=== PATIENT | female | born 1935 | race Caucasian/White ===

== ENCOUNTER 2016-10-11 09:35 | Inpatient (IN) | payer BC ==
[2016-10-11 09:41] VITALS: BMI 24.9
[2016-10-11 10:22] LABS: BASOPHIL 0.8 % (0-2.0); EOSINOPHIL 4.7 % (0-4.5); MCH 30.5 pg (25.7-33.7); MCHC 32.9 g/dl (32.0-36.0); MEAN CELL VOLUME 92.9 fl (80-96); MEAN PLT VOLUME 8.5 fl (7.5-11.1); NEUTROPHILS 71.2 % (42.8-82.8); PLATELET COUNT 151 K/MM3 (134-434); RDW 14.3 % (11.6-15.6); WHITE BLOOD COUNT 5.5 K/mm3 (4.0-10.8)
[2016-10-11 10:43] LABS: CPK(DFH) 88 IU/L (26-140)
[2016-10-11 10:45] LABS: INR 1.6 (0.82-1.09); PROTHROMBIN TIME (PATIENT) 17.7 SEC (10.2-13.0)
[2016-10-11 10:45] LABS: ALBUMIN 3.9 g/dl (3.5-5.0); ALK PHOS 60 U/L (32-92); ANION GAP 6 (8-16); BILIRUBIN,TOTAL 0.9 mg/dl (0.2-1.0); CALCIUM 9.1 mg/dl (8.4-10.2); CO2 23 mmol/L (22-28); CREATININE 0.9 mg/dl (0.6-1.3); GLUCOSE,RANDOM 119 mg/dl (74-106); SGOT/AST 24 U/L (10-42); SGPT/ALT 20 U/L (10-40); TOT PROT 6.4 g/dl (6.4-8.3)
--- NOTE | 2016-10-11 11:00 | PDOC ---
History of Present Illness - General Chief Complaint: Palpitations Stated Complaint: PALPITATIONS,SOB Time Seen by Provider: 10/11/16 09:45 History Source: Patient Exam Limitations: No Limitations - History of Present Illness Initial Comments: 81 yo F history afib, HTN presents with recent SOB, weight gain. She states that she has gained a few pounds over the past month (she keeps a detailed record), but today she also noted that she was having palpitations and racing heartbeat. She called Dr. Jiménez's office, who recommended she go to ED. She denies chest pain, N/V, diaphoresis. She has palpitations and SOB at rest. Of note, she was taken off lasix a few months ago, only uses it prn. Past History - Past Medical History Allergies/Adverse Reactions: Allergies Allergy/AdvReac Type Severity Reaction Status Date / Time cephalexin [Cephalexin] Allergy Intermediate Rash Verified 10/11/16 09:37 clindamycin Allergy Intermediate Rash Verified 10/11/16 09:37 naproxen [From Naprosyn] Allergy Intermediate ANKLES Verified 10/11/16 09:37 SWELLED UP Penicillins Allergy Intermediate Rash Verified 10/11/16 09:37 diphenhydramine HCl AdvReac CAN'T Verified 10/11/16 09:37 [From Benadryl] HAVE,HAS GLAUCOMA Home Medications: Ambulatory Orders Travoprost (Benzalkonium) [Travatan 0.004% Eye Drop] 1 gtt OD HS 05/29/11 Levothyroxine [Synthroid -] 100 mcg PO DAILY 03/19/15 Potassium Chloride [Klor-Con M20] 20 meq PO ASDIR 03/19/15 Dorzolamide HCl [Trusopt] 10 ml OD BID 10/15/15 Apixaban [Eliquis] 2.5 mg PO BID 10/11/16 Aspirin [ASA -] 81 mg PO DAILY 10/11/16 Atorvastatin Ca [Lipitor] 40 mg PO HS 10/11/16 Carvedilol [Coreg -] 2 tab PO ASDIR 10/11/16 Carvedilol [Coreg -] 4 tab PO AM 10/11/16 Clopidogrel Bisulfate [Plavix -] 75 mg PO DAILY 10/11/16 Lisinopril 5 mg PO DAILY 10/11/16 Anemia: No Asthma: No Cancer: No Cardiac Disorders: Yes CVA: No COPD: No CHF: No Dementia: No Diabetes: No GI Disorders: Yes (GERD) Disorders: No HTN: Yes () Hypercholesterolemia: Yes Liver Disease: No Seizures: No Thyroid Disease: Yes () Other medical history: CATARACTS,GLAUCOMA - Surgical History Abdominal Surgery: No Appendectomy: No Cardiac Surgery: Yes (STENT 10/27/15) Cholecystectomy: No Lung Surgery: No Neurologic Surgery: No Orthopedic Surgery: No - Psycho/Social/Smoking Cessation Hx Anxiety: No Suicidal Ideation: No Smoking History: Former smoker Have you smoked in the past 12 months: No Number of Cigarettes Smoked Daily: 40 If you are a former smoker, when did you quit?: 23 YEARS AGO Information on smoking cessation initiated: No Hx Alcohol Use: No Drug/Substance Use Hx: No Substance Use Type: None Hx Substance Use Treatment: No Review of Systems - Review of Systems Able to Perform ROS?: Yes Comments:: GENERAL/CONSTITUTIONAL: No fever or chills. No weakness. +Weight gain. HEAD, EYES, EARS, NOSE AND THROAT: No change in vision. No ear pain or discharge. No sore throat. CARDIOVASCULAR: No chest pain. +Shortness of breath. RESPIRATORY: No cough, wheezing, or hemoptysis. GASTROINTESTINAL: No nausea, vomiting, diarrhea or constipation. GENITOURINARY: No dysuria, frequency, or change in urination. MUSCULOSKELETAL: +BLE swelling. No neck or back pain. SKIN: No rash NEUROLOGIC: No headache, vertigo, loss of consciousness, or change in strength/ sensation. ENDOCRINE: No increased thirst. No abnormal weight change. HEMATOLOGIC/LYMPHATIC: No anemia, easy bleeding, or history of blood clots. ALLERGIC/IMMUNOLOGIC: No hives or skin allergy. *Physical Exam - Vital Signs Last Vital Signs Temp Pulse Resp BP Pulse Ox 98.4 F 114 H 20 130/90 97 10/11/16 09:38 10/11/16 09:38 10/11/16 09:38 10/11/16 09:38 10/11/16 09:38 - Physical Exam Comments: GENERAL: Awake, alert, and fully oriented, in no acute distress HEAD: No signs of trauma EYES: PERRLA, EOMI, sclera anicteric, conjunctiva clear ENT: Auricles normal inspection, hearing grossly normal, nares patent, oropharynx clear without exudates. Moist mucosa NECK: Normal ROM, supple, no lymphadenopathy, JVD, or masses LUNGS: Breath sounds equal, clear to auscultation bilaterally. No wheezes, and no crackles. Mild tachypnea. HEART: Regular rate and rhythm, normal S1 and S2, no murmurs, rubs or gallops ABDOMEN: Soft, nontender, normoactive bowel sounds. No guarding, no rebound. No masses EXTREMITIES: Normal range of motion, +trace edema to B/L ankles. No clubbing or cyanosis. No cords, erythema, or tenderness NEUROLOGICAL: Cranial nerves II through XII grossly intact. Normal speech, normal gait SKIN: Warm, Dry, normal turgor, no rashes or lesions noted. ED Treatment Course - LABORATORY CBC & Chemistry Diagram: 10/11/16 10:08 10/11/16 10:08 - ADDITIONAL ORDERS Additional order review: Laboratory Results 10/11/16 10/11/16 10/11/16 10:10 10:08 10:08 INR 1.60 H Sodium 133 L Potassium 4.6 Chloride 104 Carbon Dioxide 23 D Anion Gap 6 L BUN 22 H D Creatinine 0.9 D Creat Clearance w eGFR Y Random Glucose 119 H Calcium 9.1 Total Bilirubin 0.9 D AST 24 ALT 20 Alkaline Phosphatase 60 D Creatine Kinase 88 Total Protein 6.4 Albumin 3.9 10/11/16 10:08 RBC 3.57 L D MCV 92.9 MCHC 32.9 RDW 14.3 MPV 8.5 Neutrophils % 71.2 Lymphocytes % 12.6 Monocytes % 10.7 H Eosinophils % 4.7 H D Basophils % 0.8 - RADIOLOGY Radiology Studies Ordered: Category Date Time Status CHEST X-RAY PORTABLE* [RAD] Stat Radiology 10/11/16 09:45 Taken Medical Decision Making - Medical Decision Making Pt was given cardizem for the afib with RVR (she is on coreg already, but her BP would not tolerate additional B-gregorio at that time). Her HR improved, but she had brief, self-limited erythema at the injection site. As it was self- limited, the benadryl was cancelled before it was given. No airway symptoms. I will admit her to hospitalist for further treatment and workup. I paged Dr. Jiménez to discuss case at 11:04. Awaiting callback. *DC/Admit/Observation/Transfer Diagnosis at time of Disposition: Acute on chronic systolic (congestive) heart failure Atrial fibrillation Qualifiers: Atrial fibrillation type: unspecified Qualified Code(s): I48.91 - Unspecified atrial fibrillation - Discharge Dispostion Condition at time of disposition: Stable Admit: Yes
[2016-10-11] MEDS ORDERED: FUROSEMIDE 40 MG/4 ML INJECTABLE VIAL IVPUSH ONE (11:03)
[2016-10-11] MEDS ORDERED: dilTIAZem HCL 50 MG/10 ML - 10 ML VIAL IVPUSH ONE (11:03)
[2016-10-11 11:36] LABS: TROPONIN I (DFP) < 0.03 ng/ml (0.03-0.50)
[2016-10-11] MEDS ORDERED: dilTIAZem HCL 50 MG/10 ML - 10 ML VIAL ONE (11:50)
[2016-10-11] MEDS ORDERED: FUROSEMIDE 40 MG/4 ML INJECTABLE VIAL ONE (11:50)
--- NOTE | 2016-10-11 13:06 | HP ---
CHIEF COMPLAINT: shortness of breath, billateral leg swelling PCP: Dr Montes (retired-->Gretel) Tie Sawyer: Dr Mullins HISTORY OF PRESENT ILLNESS: patient is a 81 year old female, with a past medical history of hypertension, afib (eliquis), [place] (stent x , 2015), glaucoma , hypothyroidism, and COPD. Patient reports one week of shortness of breath and billateral leg swelling. She reports taking lasix on Friday, 10/07 and Sunday 10/08 with relief. However, the shortness and breath and fatigue worsened today. As a result, she contacted her equal employment opportunity officer office, Dr Mejia and was referred to the [facility] by the office staff. ER course was notable for: (1) troponin x 1 wnl (2) ekg afib with ventricular rate of 109 (3) chest xray notable for pulmonary vascular congestion and mild intersitial lung disease Recent Travel: none PAST MEDICAL HISTORY: see hpi PAST SURGICAL HISTORY: see hpi Social History: retired resides at home Smoking: quit 20 years ago Alcohol:none Drugs: none Family History: non contributory to this admission. Allergies cephalexin [Cephalexin] Allergy (Intermediate, Verified 10/11/16 09:37) Rash clindamycin Allergy (Intermediate, Verified 10/11/16 09:37) Rash naproxen [From Naprosyn] Allergy (Intermediate, Verified 10/11/16 09:37) ANKLES SWELLED UP Penicillins Allergy (Intermediate, Verified 10/11/16 09:37) Rash diphenhydramine HCl [From Benadryl] Adverse Reaction (Verified 10/11/16 09:37) CAN'T HAVE,HAS GLAUCOMA HOME MEDICATIONS: Home Medications Medication Instructions Recorded Travoprost (Benzalkonium) 1 gtt OD HS 05/29/11 [Travatan 0.004% Eye Drop] Levothyroxine [Synthroid -] 100 mcg PO DAILY 03/19/15 Potassium Chloride [Klor-Con M20] 20 meq PO ASDIR 03/19/15 Dorzolamide HCl [Trusopt] 10 ml OD BID 10/15/15 Apixaban [Eliquis] 2.5 mg PO BID 10/11/16 Aspirin [ASA -] 81 mg PO DAILY 10/11/16 Atorvastatin Ca [Lipitor] 40 mg PO HS 10/11/16 Carvedilol [Coreg -] 2 tab PO ASDIR 10/11/16 Carvedilol [Coreg -] 4 tab PO AM 10/11/16 Clopidogrel Bisulfate [Plavix -] 75 mg PO DAILY 10/11/16 Lisinopril 5 mg PO DAILY 10/11/16 REVIEW OF SYSTEMS CONSTITUTIONAL: Absent: fever, chills, diaphoresis, generalized weakness, malaise, loss of appetite, weight change HEENT: Absent: rhinorrhea, nasal congestion, throat pain, throat swelling, difficulty swallowing, mouth swelling, ear pain, eye pain, visual changes CARDIOVASCULAR: Absent: chest pain, syncope, palpitations, irregular heart rate, lightheadedness , peripheral edema RESPIRATORY: Present: shortness of breath, dyspnea upon exertion Absent: cough, orthopnea, wheezing, stridor, hemoptysis GASTROINTESTINAL: Absent: abdominal pain, abdominal distension, nausea, vomiting, diarrhea, constipation, melena, hematochezia GENITOURINARY: Absent: dysuria, frequency, urgency, hesitancy, hematuria, flank pain, genital pain MUSCULOSKELETAL: Absent: myalgia, arthralgia, joint swelling, back pain, neck pain SKIN: Absent: rash, itching, pallor HEMATOLOGIC/IMMUNOLOGIC: Absent: easy bleeding, easy bruising, lymphadenopathy, frequent infections ENDOCRINE: Absent: unexplained weight gain, unexplained weight loss, heat intolerance, cold intolerance NEUROLOGIC: Absent: headache, focal weakness or paresthesias, dizziness, unsteady gait, seizure, mental status changes, bladder or bowel incontinence PSYCHIATRIC: Absent: anxiety, depression, suicidal or homicidal ideation, hallucinations. PHYSICAL EXAMINATION Vital Signs - 24 hr 10/11/16 10/11/16 10/11/16 09:38 11:55 12:07 Temperature 98.4 F Pulse Rate 114 H Pulse Rate [ 117 H 80 Apical] Respiratory 20 18 20 Rate Blood Pressure 130/90 Blood Pressure 151/105 123/84 [Arm] O2 Sat by Pulse 97 98 97 Oximetry (%) GENERAL: Awake, alert, and fully oriented, in no acute distress. HEAD: Normal with no signs of trauma. EYES: Pupils equal, round and reactive to light, extraocular movements intact, sclera anicteric, conjunctiva clear. No lid lag. EARS, NOSE, THROAT: Ears normal, nares patent, oropharynx clear without exudates. Moist mucous membranes. NECK: Normal range of motion, supple without lymphadenopathy, JVD, or masses. LUNGS: Breath sounds equal, clear to auscultation bilaterally. left upper lobe inspiratory wheeze, rales to billateral bases No accessory muscle use. HEART: Regular rate and rhythm, normal S1 and S2 without murmur, rub or gallop. ABDOMEN: Soft, nontender, not distended, normoactive bowel sounds, no guarding, no rebound, no masses. No hepatomegaly or splenomegaly. MUSCULOSKELETAL: Normal range of motion at all joints. No bony deformities or tenderness. No CVA tenderness. UPPER EXTREMITIES: 2+ pulses, warm, well-perfused. No cyanosis. No clubbing. No peripheral edema. LOWER EXTREMITIES: 2+ pulses, warm, well-perfused. No calf tenderness. No peripheral edema. NEUROLOGICAL: Cranial nerves II-XII intact. Normal speech. Normal gait. PSYCHIATRIC: Cooperative. Good eye contact. Appropriate mood and affect. SKIN: Warm, dry, normal turgor, no rashes or lesions noted, normal capillary refill. Laboratory Results - last 24 hr 10/11/16 10/11/16 10/11/16 10:08 10:08 10:08 WBC 5.5 RBC 3.57 L D Hgb 10.9 D Hct 33.1 D MCV 92.9 MCHC 32.9 RDW 14.3 Plt Count 151 MPV 8.5 Neutrophils % 71.2 Lymphocytes % 12.6 Monocytes % 10.7 H Eosinophils % 4.7 H D Basophils % 0.8 INR Sodium 133 L Potassium 4.6 Chloride 104 Carbon Dioxide 23 D Anion Gap 6 L BUN 22 H D Creatinine 0.9 D Creat Clearance w eGFR Y Random Glucose 119 H Calcium 9.1 Total Bilirubin 0.9 D AST 24 ALT 20 Alkaline Phosphatase 60 D Creatine Kinase 88 Troponin I < 0.03 L Total Protein 6.4 Albumin 3.9 10/11/16 10:10 WBC RBC Hgb Hct MCV MCHC RDW Plt Count MPV Neutrophils % Lymphocytes % Monocytes % Eosinophils % Basophils % INR 1.60 H Sodium Potassium Chloride Carbon Dioxide Anion Gap BUN Creatinine Creat Clearance w eGFR Random Glucose Calcium Total Bilirubin AST ALT Alkaline Phosphatase Creatine Kinase Troponin I Total Protein Albumin ASSESSMENT/PLAN: 1) card acute on chronic systolic congestive heart failure - chest xray reviewed pulmonary vascular congestion noted, lasix 40mg IV x 1 given in ED, continue lasix 40mg IV daily - daily weight and strict I/O - echo reviewed 2015 LV mild reduced, moderate pulmonary hypertension, moderate global hypokinesis of LV, pending ECHO, cardiology contacted and will complete echo by the end of office hours - pending bnp afib w/rvr - continous cardiac monitoring, cardizem 10mg given in ED, ventricular rate better controlled, continue coreg (home dose) - continue eliquis CAD S/p stent - continue plavix, lipitor and asa - pending lipid profile - appreciate the input of cardiology Dr Mullins, 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's private equal employment opportunity officer hypertension - continue lisinopril b/p well controlled 2) pulm acute copd exacerbation - interistial lung disease noted on cxr, wheezing noted on exam, pt is a former smoker and chest ct (2015) reviewed moderate copd, start duonebs prn - keep spo2 above 92% with supplemental o2 - appreciate pulmonary input 3) endo hypothyroidism - TSH pending, continue synthroid f/e/n - low sodium diet - replete electrolytes prn ppx - eliquis - pt - oob - scd - zantac dispo: requires inpatient telemetry admission Visit type - Emergency Visit Emergency Visit: Yes ED Registration Date: 10/11/16 Care time: The patient presented to the Emergency Department on the above date and was hospitalized for further evaluation of their emergent condition. - New Patient This patient is new to me today: Yes Date on this admission: 10/11/16 - Critical Care Critical Care patient: Yes Total Critical Care Time (in minutes): 45 Critical Care Statement: The care of this patient involved high complexity decision making to prevent further life threatening deterioration of the patient 's condition and/or to evalute & treat vital organ system(s) failure or risk of failure.
[2016-10-11] MEDS ORDERED: ALBUTEROL SO4 0.083% IH SOL 2.5 MG/3 ML VIAL.NEB. NEB PRN (13:44)
[2016-10-11] MEDS ORDERED: ALBUTEROL SO4 0.083% IH SOL 2.5 MG/3 ML VIAL.NEB. NEB ONE (14:15)
[2016-10-11] MEDS ORDERED: POTASSIUM CHLORIDE TABS 20 MEQ TABLET.ER (FP) PO SCH (14:15)
[2016-10-11 16:35] LABS: URINE APPEARANCE Clear; URINE BILIRUBIN Negative (NEGATIVE); URINE BLOOD Negative (NEGATIVE); URINE COLOR YELLOW; URINE GLUCOSE (UA) Negative (NEGATIVE); URINE KETONE Negative (NEGATIVE); URINE LEUK ESTERASE Negative (NEGATIVE); URINE NITRITE Negative (NEGATIVE); URINE PROTEIN Negative (NEGATIVE); URINE UROBILINOGEN 0.2 E.U/dl (0.2-1.0)
--- NOTE | 2016-10-11 16:55 | PN ---
Progress Note (short form) - Note Progress Note: PULMONARY CONSULTATION DICTATED 10/11/16 IMP DYSPNEA ACUTE ON CHRONIC CHF ASHD S/P NM ,S/P STENT LIKELY COPD AFIB HTN HYPONATREMIA PLAN IV LASIX INHALED BRONCHODILATORS PRN O2 PRN DAILY WTS ECHO MONITOR LYTES,NA PFTS OUTPATIENT F/U CHEST C-RAY Problem List - Problems (1) Acute on chronic systolic (congestive) heart failure Code(s): I50.23 - ACUTE ON CHRONIC SYSTOLIC (CONGESTIVE) HEART FAILURE (2) Atrial fibrillation Code(s): I48.91 - UNSPECIFIED ATRIAL FIBRILLATION Qualifiers: Atrial fibrillation type: unspecified Qualified Code(s): I48.91 - Unspecified atrial fibrillation (3) COPD (chronic obstructive pulmonary disease) Code(s): J44.9 - CHRONIC OBSTRUCTIVE PULMONARY DISEASE, UNSPECIFIED (4) Hypertension Code(s): I10 - ESSENTIAL (PRIMARY) HYPERTENSION (5) ASHD (arteriosclerotic heart disease) Code(s): I25.10 - ATHSCL HEART DISEASE OF [place] CORONARY ARTERY W/O ANG PCTRS
[2016-10-11 17:07] LABS: CPK(DFH) 77 IU/L (26-140)
[2016-10-11 17:26] LABS: TROPONIN I (DFP) < 0.03 ng/ml (0.03-0.50)
[2016-10-11 19:48] LABS: THYROID STIMULATING HORMONE 0.52 uIU/ml (0.358-3.74)
[2016-10-11] MEDS ORDERED: PT OWN MED DRAWER 7, Y5N ONE (21:30)
[2016-10-11] MEDS: APIXABAN 2.5 MG TABLET PO SCH (21:31)
[2016-10-11] MEDS: DORZOLAMIDE 2% HCL OPHTHALMIC SOLUTION 10 ML BOTTLE OD SCH (21:31)
[2016-10-11] MEDS ORDERED: CARVEDILOL 3.125 MG TABLET (FP) PO SCH ×2 (22:00)
[2016-10-11] MEDS ORDERED: LATANOPROST 0.005% OPHTH SOLN 2.5ML BOTTLE OD SCH (22:00)
[2016-10-11] MEDS ORDERED: ATORVASTATIN CA 40 MG TABLET (FP) PO SCH (22:00)
[2016-10-11] MEDS ORDERED: TRAVOPROST OD SCH (22:00)
[2016-10-12 06:21] VITALS: BP 133/74; PULSE 82; TEMP 97.9
[2016-10-12] MEDS ORDERED: LEVOTHYROXINE NA 100 MCG TABLET (FP) PO SCH (07:00)
[2016-10-12] MEDS ORDERED: CARVEDILOL 3.125 MG TABLET (FP) PO SCH (07:00)
--- NOTE | 2016-10-12 07:46 | CONS ---
DATE OF CONSULTATION: 10/11/2016 REFERRING PHYSICIAN: Ginny Flower MD HISTORY: The patient is an 81-year-old white female with past medical history of atrial fibrillation on Eliquis with hypertension, ASHD status post VT in 2016, status post stent x1, COPD, CHF, glaucoma, hypothyroidism admitted to [facility] with the complaint of a [id number] of increasing shortness of breath, dyspnea on exertion, and lower extremity edema. The patient denies any complaints of chest pain, nausea, vomiting, or diaphoresis. Denies any fevers or chills. Had a cough, which was nonproductive. Denies any recent URI symptoms. She states that she had taken Lasix on Friday, October 07, Friday, October 08 with some improvement. The shortness of breath then started increasing today. The past couple of days had increasing shortness of breath and generalized weakness. She called Dr. Jiméenz, her croze cutter, at which time she was referred to the emergency room. In the ER, she was felt to be in CHF. She underwent a CT scan of the chest, which revealed evidence of COPD changes, small, bilateral pleural effusions, which are actually improved from 2016. She has a history of tobacco use approximately 2 packs per day since age 11. Quit greater than 20 years ago. There is no history of occupational exposure to chemicals or fumes. She denies any history of COPD in the past, asthma, or bronchitis. She denies any history of use of inhaled bronchodilators. PAST MEDICAL HISTORY: Again includes hypertension, atrial fibrillation on Eliquis, [place] status post stent, glaucoma, hypothyroidism. REVIEW OF SYSTEMS: Positive orthopnea. Positive dyspnea on exertion. No chest pain, no palpitations. Positive mild cough. No fevers, no chills. Positive lower extremity edema. CURRENT MEDICATIONS: Include Eliquis, Prinivil, albuterol, Coreg, Trusopt, Lipitor, Lasix, aspirin, Plavix, eye drops, Synthroid, and K-Dur. PHYSICAL EXAMINATION: General: An elderly white female awake and alert in no acute distress. Vital Signs: She is currently afebrile. Blood pressure 133/84, respiratory rate 18, O2 saturation 98% on room air. HEENT: Normocephalic and atraumatic. Neck: Supple. Heart: Irregularly irregular with normal S1, S2. Chest: A few bilateral crackles. Abdomen: Soft. Bowel sounds positive. Extremities: Bilateral lower extremity edema. LABORATORIES: Sodium 133, BUN 22, creatinine 0.9. BNP is pending. INR 1.6, WBC 5.5, hemoglobin 10.9, hematocrit 33.1 with a platelet count of 151,000. Chest x-ray reveals mild pulmonary venous congestion. IMPRESSION: 1. Dyspnea secondary to decompensated congestive heart failure. 2. Likely underlying chronic obstructive pulmonary disease. 3. Atrial fibrillation. 4. Arteriosclerotic heart disease status post myocardial infarction status post stent. 5. Hypertension. PLAN: Continue IV Lasix, inhaled bronchodilators, supplemental O2. Obtain follow up chest x-ray, echocardiogram, and also PFTs as an outpatient. SARAH JEFFERS M.D. [id number]
[2016-10-12 08:19] LABS: ANION GAP 7 (8-16); CALCIUM 8.8 mg/dl (8.4-10.2); CHOLESTEROL 125 mg/dl; CO2 26 mmol/L (22-28); CREATININE 0.8 mg/dl (0.6-1.3); GLUCOSE,RANDOM 101 mg/dl (74-106); MAGNESIUM 1.8 mg/dL (1.8-2.4)
[2016-10-12] MEDS ORDERED: PT OWN MED DRAWER 7, Y5N ONE (09:07)
[2016-10-12] MEDS: APIXABAN 2.5 MG TABLET PO SCH (09:08)
[2016-10-12] MEDS: DORZOLAMIDE 2% HCL OPHTHALMIC SOLUTION 10 ML BOTTLE OD SCH (09:09)
--- NOTE | 2016-10-12 09:40 | CON.CARD ---
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 She states that she has gained a few pounds over the past month (she keeps a detailed record), but today she also noted that she was having palpitations and racing heartbeat. She called Dr. Jiménez's office, who recommended she go to ED. She denies chest pain, N/V, diaphoresis. She has palpitations and SOB at rest. Of note, she was taken off lasix a few months ago , only uses it prn. Pt has completed 10 of 36 sessions of cardiac rehabilitation at [facility] (last attended 09/18/16). She walks "a little" at home. 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 Cardio/Vascular: Yes: HTN, Hyperlipdemia ...: No Psych: Yes: Anxiety - Past Surgical History Past Surgical History: Yes: Stent (coronary) - Alcohol/Substance Use Hx Alcohol Use: No - Smoking History Smoking history: Former smoker Have you smoked in the past 12 months: No Aproximately how many cigarettes per day: 40 If you are a former smoker, when did you quit?: 23 YEARS AGO Home Medications - Allergies Allergies/Adverse Reactions: Allergies Allergy/AdvReac Type Severity Reaction Status Date / Time cephalexin [Cephalexin] Allergy Intermediate Rash Verified 10/11/16 09:37 clindamycin Allergy Intermediate Rash Verified 10/11/16 09:37 naproxen [From Naprosyn] Allergy Intermediate ANKLES Verified 10/11/16 09:37 SWELLED UP Penicillins Allergy Intermediate Rash Verified 10/11/16 09:37 diphenhydramine HCl AdvReac CAN'T Verified 10/11/16 09:37 [From Benadryl] HAVE,HAS GLAUCOMA - Home Medications Home Medications: Ambulatory Orders Travoprost (Benzalkonium) [Travatan 0.004% Eye Drop] 1 gtt OD HS 05/29/11 Levothyroxine [Synthroid -] 100 mcg PO DAILY 03/19/15 Potassium Chloride [Klor-Con M20] 20 meq PO ASDIR 03/19/15 Dorzolamide HCl [Trusopt] 10 ml OD BID 10/15/15 Apixaban [Eliquis] 2.5 mg PO BID 10/11/16 Aspirin [ASA -] 81 mg PO DAILY 10/11/16 Atorvastatin Ca [Lipitor] 40 mg PO HS 10/11/16 Carvedilol [Coreg -] 2 tab PO ASDIR 10/11/16 Carvedilol [Coreg -] 4 tab PO AM 10/11/16 Clopidogrel Bisulfate [Plavix -] 75 mg PO DAILY 10/11/16 Lisinopril 5 mg PO DAILY 10/11/16 Family Disease History - Family Disease History Family History: Denies Review of Systems - Review of Systems Constitutional: reports: Weakness Eyes: reports: No Symptoms HENT: reports: No Symptoms Neck: reports: No Symptoms Cardiovascular: reports: Palpitations, Shortness of Breath Respiratory: reports: SOB on Exertion Genitourinary: reports: No Symptoms Breasts: reports: No Symptoms Reported Musculoskeletal: reports: Muscle Weakness Neurological: reports: No Symptoms Endocrine: reports: No Symptoms Hematology/Lymphatic: reports: No Symptoms Psychiatric: reports: Anxiety - Risk Factors Known Risk Factors: Yes: Age, Hypercholesterolemia, Hypertension, Physical Inactivity, Other (CAD-->coronary stent; systolic CHF) Vital Signs: Vital Signs Temperature 97.9 F 10/12/16 06:00 Pulse Rate 82 10/12/16 06:00 Respiratory Rate 18 10/12/16 06:00 Blood Pressure 133/74 10/12/16 06:00 O2 Sat by Pulse Oximetry (%) 100 10/12/16 06:17 Constitutional: Yes: Calm Eyes: Yes: WNL HENT: Yes: WNL Neck: Yes: WNL Respiratory: Yes: Regular, Diminished Gastrointestinal: Yes: Soft Renal/: No: Anuria Cardiovascular: Yes: Pulse Irregular JVD: No Carotid Bruit: No PMI: Displaced Heart Sounds: Yes: S1 (varies in intensity), S2 Murmur: Yes: Systolic Murmur, Grade 3 Extremities: Yes: Cool Edema: No Peripheral Pulses WNL: No Peripheral Pulses: 1+ Left Doralis Pedis, 1+ Right Dorsalis Pedis Integumentary: Yes: WNL Neurological: Yes: WNL Psychiatric: Yes: WNL, Alert, Oriented - Other Data Labs, Other Data: CBC, BMP 10/12/16 07:44 INR, PTT INR 1.60 (0.82-1.09) H 10/11/16 10:10 Troponin, BNP 10/11/16 16:05 Troponin I < 0.03 L Troponin, BNP 10/11/16 16:05 Troponin I < 0.03 L Echo: Report Reviewed Ejection Fraction %: LVEF < 40 % Imaging - Results Cat Scan: Image Reviewed (small bibasilar pleural effusions; small unchanged RML nodule) EKG: Image Reviewed (AF) Other: Image Reviewed (telemetry: AF; periods of RVR) Problem List - Problems (1) ASHD (arteriosclerotic heart disease) Assessment/Plan: TNI < 0.03 x 2. Continue carvedilol, lisinopril, clopidogrel, and ASA. On furosemide; f/u BUN/Cr, electrolytes, Is and Os, daily weight. F/u lipids noted; continue statin; keep LDL cholesterol < 70 mg/dL (presently in 60s). Increase daily exercise. Code(s): I25.10 - ATHSCL HEART DISEASE OF [place] CORONARY ARTERY W/O ANG PCTRS (2) Acute on chronic systolic (congestive) heart failure Assessment/Plan: daniel see under "ASHD" Code(s): I50.23 - ACUTE ON CHRONIC SYSTOLIC (CONGESTIVE) HEART FAILURE (3) Atrial fibrillation Assessment/Plan: AF, periods of RVR. Will increase carvedilol to 12.5 mg bid. ON apixaban. Code(s): I48.91 - UNSPECIFIED ATRIAL FIBRILLATION Qualifiers: Atrial fibrillation type: unspecified Qualified Code(s): I48.91 - Unspecified atrial fibrillation (4) Anxiety Code(s): F41.9 - ANXIETY DISORDER, UNSPECIFIED (5) COPD exacerbation Assessment/Plan: Pulmonary w/u in progress. Code(s): J44.1 - CHRONIC OBSTRUCTIVE PULMONARY DISEASE W (ACUTE) EXACERBATION (6) Moderate to severe pulmonary hypertension Code(s): I27.2 - OTHER SECONDARY PULMONARY HYPERTENSION
[2016-10-12] MEDS ORDERED: POTASSIUM CHLORIDE TABS 20 MEQ TABLET.ER (FP) PO SCH (10:00)
[2016-10-12] MEDS ORDERED: CLOPIDOGREL BISULFATE 75 MG TABLET (FP) PO SCH (10:00)
[2016-10-12] MEDS ORDERED: FUROSEMIDE 40 MG/4 ML INJECTABLE VIAL IVPB SCH (10:00)
[2016-10-12] MEDS ORDERED: ASPIRIN 81 MG CHEWABLE TABLETS PO SCH (10:00)
[2016-10-12] MEDS ORDERED: LISINOPRIL 5 MG TABLET (FP) PO SCH (10:00)
--- NOTE | 2016-10-12 11:29 | DS ---
Physical Examination Vital Signs: Vital Signs Temperature 97.9 F 10/12/16 06:00 Pulse Rate 82 10/12/16 06:00 Respiratory Rate 18 10/12/16 06:00 Blood Pressure 133/74 10/12/16 06:00 O2 Sat by Pulse Oximetry (%) 100 10/12/16 06:17 Labs: CBC, BMP 10/12/16 07:44 Discharge Summary Reason For Visit: CHF, AFIB Current Active Problems ASHD (arteriosclerotic heart disease) (Acute) Acute on chronic systolic (congestive) heart failure (Acute) Atrial fibrillation (Acute) COPD exacerbation (Acute) Moderate to severe pulmonary hypertension (Acute) Hospital Course: Discussed with Dr. Jiménez who states patient is cleared for discharge from cardiology standpoint and follow-up in the office. Condition: Improved - Instructions Diet, Activity, Other Instructions: Please return to the ED with new, persistent, or worsening symptoms. Please follow-up with providers as indicated. Referrals: Brian Palmer MD [Staff Physician] - (Please follow-up with pulmonary (Dr. Palmer) within 1 week for outpatient pulmonary function testing (PFTs) and to schedule a repeat chest CT to assess your pulmonary nodule in about 3-6 months. ) Harsh Chun MD [Staff Physician] - 1 Week Paolo Jiménez MD [Staff Physician] - (Please follow-up with cardiology within 1 week for further management of your atrial fibrilation. Please continue cardiac rehab at [facility] as scheduled. ) Disposition: HOME - Home Medications Comprehensive Discharge Medication List: Ambulatory Orders Travoprost (Benzalkonium) [Travatan 0.004% Eye Drop] 1 gtt OD HS 05/29/11 Levothyroxine [Synthroid -] 100 mcg PO DAILY 03/19/15 Potassium Chloride [Klor-Con M20] 20 meq PO ASDIR 03/19/15 Dorzolamide HCl [Trusopt] 10 ml OD BID 10/15/15 Apixaban [Eliquis] 2.5 mg PO BID 10/11/16 Aspirin [ASA -] 81 mg PO DAILY 10/11/16 Atorvastatin Ca [Lipitor] 40 mg PO HS 10/11/16 Clopidogrel Bisulfate [Plavix -] 75 mg PO DAILY 10/11/16 Lisinopril 5 mg PO DAILY 10/11/16 Carvedilol [Coreg -] 12.5 mg PO BID #60 tablet 10/12/16 Furosemide [Lasix] 40 mg PO DAILY #30 tablet 10/12/16
[2016-10-12] MEDS ORDERED: CARVEDILOL 12.5 MG TABLET (FP) PO SCH (22:00)
--- NOTE | 2016-10-13 22:06 | EKG ---
Test Reason : Blood Pressure : / mmHG Vent. Rate : 109 BPM Atrial Rate : 105 BPM P-R Int : 000 ms QRS Dur : 078 ms QT Int : 336 ms P-R-T Axes : 000 051 184 degrees QTc Int : 452 ms ATRIAL FIBRILLATION WITH RAPID VENTRICULAR RESPONSE NONSPECIFIC T WAVE ABNORMALITY ABNORMAL ECG WHEN COMPARED WITH ECG OF 18-OCT-2015 09:11, ATRIAL FIBRILLATION HAS REPLACED SINUS RHYTHM Confirmed by ARINA VINCENT MD ([id number]) on 10/13/2016 10:06:07 PM Referred By: VALENCIA Confirmed By:ARINA VINCENT MD
== END 2016-10-12 12:25 | disposition home or self-care (01) | DRG 308 ==
LOC: FER 09:35 → FM/S 13:23
PROVIDERS: ADMIT Internal Medicine; ATTEND Registered Nurse
DX: I48.91 Unspecified atrial fibrillation (principal); I50.23 Acute on chronic systolic (congestive) heart failure; E87.1 Hypo-osmolality and hyponatremia; J44.1 Chronic obstructive pulmonary disease with (acute) exacerbation; K21.9 Gastro-esophageal reflux disease without esophagitis; H40.9 Unspecified glaucoma; I25.10 Atherosclerotic heart disease of native coronary artery without angina pectoris; E78.00 Pure hypercholesterolemia, unspecified; I25.2 Old myocardial infarction; I27.2 Other secondary pulmonary hypertension; E03.9 Hypothyroidism, unspecified; K80.20 Calculus of gallbladder without cholecystitis without obstruction; J44.9 Chronic obstructive pulmonary disease, unspecified; I11.0 Hypertensive heart disease with heart failure; R91.1 Solitary pulmonary nodule; F41.9 Anxiety disorder, unspecified; M85.80 Other specified disorders of bone density and structure, unspecified site; K44.9 Diaphragmatic hernia without obstruction or gangrene; Z95.5 Presence of coronary angioplasty implant and graft; Z87.891 Personal history of nicotine dependence
CPT/HCPCS: 36415; 71010-TC; 71250-TC; 80048; 80053; 80061; 81003; 82550; 83735; 83880; 84443; 84484; 85025; 85610; 93005; 93306-TC; 94640; 97116-GP; 97161-GP; 99284-25

== ENCOUNTER 2016-12-24 09:51 | Emergency (ER) | payer BC ==
[2016-12-24] MEDS ORDERED: ALBUTEROL SO4 2.5/IPRATROPIUM 0.5 INH SOL 3 ML VIAL.NEB. NEB ONE ×2 (09:57→10:24)
[2016-12-24 10:22] VITALS: BP 135/83; PULSE 91; TEMP 98.6; BMI 24.4
[2016-12-24 10:47] LABS: BASOPHIL 0.5 % (0-2.0); EOSINOPHIL 1.4 % (0-4.5); MCH 30.2 pg (25.7-33.7); MCHC 33.4 g/dl (32.0-36.0); MEAN CELL VOLUME 90.5 fl (80-96); MEAN PLT VOLUME 8.1 fl (7.5-11.1); NEUTROPHILS 77.3 % (42.8-82.8); PLATELET COUNT 144 K/MM3 (134-434); WHITE BLOOD COUNT 5.7 K/mm3 (4.0-10.8)
--- NOTE | 2016-12-24 10:50 | PDOC ---
History of Present Illness - General Chief Complaint: Shortness of Breath Stated Complaint: SOB Time Seen by Provider: 12/24/16 09:52 History Source: Patient Exam Limitations: No Limitations - History of Present Illness Initial Comments: 12/24/16 10:46 81 yo F with h/o copd, afib cad, htn hld chf pulm htn recently admitted in for chf exacerbation here today wtih c/o feeling sob. pt states gradual onset sob, no f/c does have wheezing and chest tightness. hasn't been using her inhaler at home bc unsure how to use it. no f/c no leg swelling. has been taking her diuretic lasix 40 mg daily. no f/c no cough. no other complaints. Past History - Past Medical History Allergies/Adverse Reactions: Allergies Allergy/AdvReac Type Severity Reaction Status Date / Time cephalexin [Cephalexin] Allergy Intermediate Rash Verified 12/24/16 09:53 clindamycin Allergy Intermediate Rash Verified 12/24/16 09:53 naproxen [From Naprosyn] Allergy Intermediate ANKLES Verified 12/24/16 09:53 SWELLED UP Penicillins Allergy Intermediate Rash Verified 12/24/16 09:53 diphenhydramine HCl AdvReac CAN'T Verified 12/24/16 09:53 [From Benadryl] HAVE,HAS GLAUCOMA Home Medications: Ambulatory Orders Travoprost (Benzalkonium) [Travatan 0.004% Eye Drop] 1 gtt OD HS 05/29/11 Levothyroxine [Synthroid -] 100 mcg PO DAILY 03/19/15 Potassium Chloride [Klor-Con M20] 20 meq PO ASDIR 03/19/15 Dorzolamide HCl [Trusopt] 10 ml OD BID 10/15/15 Apixaban [Eliquis] 2.5 mg PO BID 10/11/16 Aspirin [ASA -] 81 mg PO DAILY 10/11/16 Atorvastatin Ca [Lipitor] 40 mg PO HS 10/11/16 Lisinopril 5 mg PO DAILY 10/11/16 Carvedilol [Coreg -] 12.5 mg PO BID #60 tablet 10/12/16 Furosemide [Lasix] 40 mg PO DAILY #30 tablet 10/12/16 Albuterol Sulfate Inhaler - [Ventolin Hfa Inhaler -] 1 - 2 inh PO PRN PRN Anemia: No Asthma: No Cancer: No Cardiac Disorders: Yes CVA: No COPD: No CHF: No Dementia: No Diabetes: No GI Disorders: Yes (GERD) Disorders: No HTN: Yes () Hypercholesterolemia: Yes Liver Disease: No Seizures: No Thyroid Disease: Yes () - Surgical History Abdominal Surgery: No Appendectomy: No Cardiac Surgery: Yes (STENT 10/27/15) Cholecystectomy: No Lung Surgery: No Neurologic Surgery: No Orthopedic Surgery: No - Psycho/Social/Smoking Cessation Hx Anxiety: No Suicidal Ideation: No Smoking History: Former smoker Have you smoked in the past 12 months: No Number of Cigarettes Smoked Daily: 40 If you are a former smoker, when did you quit?: 23 YEARS AGO Information on smoking cessation initiated: No Hx Alcohol Use: No Drug/Substance Use Hx: No Substance Use Type: None Hx Substance Use Treatment: No Review of Systems - Review of Systems Constitutional: No: Chills, Diaphoresis Respiratory: Yes: Shortness of Breath, SOB with Exertion, SOB at Rest. No: Cough Cardiac (ROS): Yes: Irregular Heart Rate, Chest Tightness. No: Chest Pain, Edema ABD/GI: No: Abdominal Distended, Diarrhea : No: Burning, Dysuria All Other Systems: Reviewed and Negative *Physical Exam - Vital Signs Last Vital Signs Temp Pulse Resp BP Pulse Ox 98.6 F 91 H 22 135/83 99 12/24/16 09:51 12/24/16 09:51 12/24/16 09:51 12/24/16 09:51 12/24/16 09:51 - Physical Exam General Appearance: Yes: Appropriately Dressed Neck: positive: Trachea midline Respiratory/Chest: positive: Normal Breath Sounds (faint crackles at the bases bilaterally ). negative: Chest Tender, Respiratory Distress, Accessory Muscle Use Cardiovascular: positive: Regular Rate, S1, S2, Irregular Gastrointestinal/Abdominal: positive: Normal Bowel Sounds, Flat, Soft. negative : Tender Musculoskeletal: positive: Normal Inspection. negative: CVA Tenderness Extremity: positive: Normal Capillary Refill, Normal Inspection. negative: Pedal Edema, Swelling, Calf Tenderness Integumentary: positive: Normal Color, Dry, Warm Neurologic: positive: Fully Oriented, Alert, Normal Mood/Affect ED Treatment Course - LABORATORY CBC & Chemistry Diagram: 12/24/16 10:33 12/24/16 10:33 - RADIOLOGY Radiology Studies Ordered: Category Date Time Status CHEST PA & LAT [RAD] Stat Radiology 12/24/16 09:58 Taken - Medications Given in the ED: ED Medications Discontinued Medications Generic Name Dose Route Start Last Admin Trade Name Mason PRN Reason Stop Dose Admin Albuterol/Ipratropium 1 amp 12/24/16 09:57 12/24/16 09:58 Duoneb - NEB 12/24/16 09:58 1 amp ONCE ONE Administration Medical Decision Making - Medical Decision Making 12/24/16 10:49 81 yo F with h/o copd, pulm htn, cad chf here wtih c/o sob. differential: anemia , chf, copd. plan labs ekg cxr neb reassess. 12/24/16 12:02 pt feels much improved after one nubulizer. cxr clear. no acute congestive change. pt no leg edema. ambulating without sob, sats 98% after ambulation on room air. will dc with education regarding inhaler. d/w martha orellana see pt in one week. told to return for worsening sxs. *DC/Admit/Observation/Transfer Diagnosis at time of Disposition: COPD mixed type, COPD (chronic obstructive pulmonary disease) - Discharge Dispostion Admit: No - Referrals Referrals: Kirsty Hodges MD [Staff Physician] - Brian Palmer MD [Staff Physician] - - Patient Instructions Printed Discharge Instructions: Albuterol Oral Inhalation, Chronic Obstructive Pulmonary Disease (Alternative Therapy) Additional Instructions: you need to use your inhaler 2 puffs every 4 hours to help wtih breathing difficulty and wheezing. 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 return for chest pain. cough fever, worsening symptoms or any concerns. you should also follow up wtih your regular doctor Dr. Hodges. call to schedule.
[2016-12-24 11:00] LABS: ALK PHOS 51 U/L (32-92); ANION GAP 8 (8-16); BILIRUBIN,TOTAL 1.7 mg/dl (0.2-1.0); CALCIUM 9.3 mg/dl (8.4-10.2); CO2 24 mmol/L (22-28); CREATININE 1.1 mg/dl (0.6-1.3); GLUCOSE,RANDOM 120 mg/dl (74-106); SGOT/AST 23 U/L (10-42); SGPT/ALT 11 U/L (10-40)
--- NOTE | 2016-12-24 18:24 | EKG ---
Test Reason : Blood Pressure : / mmHG Vent. Rate : 085 BPM Atrial Rate : 326 BPM P-R Int : 000 ms QRS Dur : 080 ms QT Int : 378 ms P-R-T Axes : 000 046 197 degrees QTc Int : 449 ms ATRIAL FLUTTER WITH VARYING AV RESPONSE NONSPECIFIC ST AND T WAVE ABNORMALITY ABNORMAL ECG WHEN COMPARED WITH ECG OF 11-OCT-2016 09:44, NO SIGNIFICANT CHANGE WAS FOUND REPEAT EKG IF CLINICALLY INDICATED Confirmed by TENNILLE LOPEZ MD ([id number]) on 12/24/2016 6:23:35 PM Referred By: ELO LAY Confirmed By:TENNILLE LOPEZ MD
== END 2016-12-24 12:30 | disposition home or self-care (01) ==
LOC: FER 09:51
PROC: 3E0F7GC Introduction of Other Therapeutic Substance into Respiratory Tract, Via Natural or Artificial Opening (ICD-10-PCS; principal; 2016-12-24)
DX: J44.9 Chronic obstructive pulmonary disease, unspecified (principal); J45.998 Other asthma; Z87.891 Personal history of nicotine dependence; I10 Essential (primary) hypertension; E78.00 Pure hypercholesterolemia, unspecified; E07.9 Disorder of thyroid, unspecified; K21.9 Gastro-esophageal reflux disease without esophagitis
CPT/HCPCS: 36415; 71020-TC; 80053; 83880; 85025; 93005; 94640; 99282-25

== ENCOUNTER 2017-02-02 19:45 | Inpatient (IN) | payer BC, OTHER ==
--- NOTE | 2017-02-02 19:46 | PDOC ---
History of Present Illness - General History Source: Patient Exam Limitations: No Limitations <Jair Lyn - Last Filed: 02/02/17 20:26> - General History Source: Patient Exam Limitations: No Limitations <RameshlucyTomkathrinecatalinaPaolakocatalina Brian - Last Filed: 02/02/17 21:16> - General Chief Complaint: Chest Pain Stated Complaint: CHEST PAIN Time Seen by Provider: 02/02/17 19:46 - History of Present Illness Initial Comments: 02/02/17 20:26 The patient is a 81 year old female, with a significant past medical history of COPD, atrial fibrillation, coronary artery disease, hypertension, hypercholesterolemia, hypothyroidism, hyperlipidemia, congestive heart failure, pulmonary hypertension, who presents to the emergency department complaining of left sided non-pleuritic chest pain that began approx. 3 days ago. The patient describes the chest pain as a sharp (sometime dull) pain that occurs with movement and last for approx. 1-2 seconds. She reports she had a recent CA in October of 2015 and a stent placed. The patient reports shortness of breath secondary to the chest pain. She denies diaphoresis, lightheadedness or dizziness. She denies recent nausea, vomiting, fever or chills. PAST MEDICAL HISTORY: COPD, atrial fibrillation, coronary artery disease, hypertension, hyperlipidemia, congestive heart failure, pulmonary hypertension, hypercholesterolemia hypothyroidism PAST SURGICAL HISTORY: Stent 10/27/15 FAMILY HISTORY: no pertinent history SOCIAL HISTORY: Pt lives with family MEDICATIONS: reviewed ALLERGIES: As per nursing notes Primary Care Physician: Dr. Kirsty LUI General: No fevers or chills, no weakness, no weight loss HEENT: No change in vision. No sore throat,. No ear pain CardioVascular: +Chest pain. +Shortness of breath Respiratory: No cough, or wheezing. Gastrointestinal: no nausea, vomiting, diarrhea or constipation, No rectal bleeding Musculoskeletal: No joint or muscle pain or swelling Neurologic: No headache, vertigo, dizziness or loss of consciousness Skin: No rashes or easy bruising All other systems reviewed and normal Exam General: Well-nourished well-developed individual, Eyes::Pupils equal reactive and round, extraocular motion intact Chest: Nontender to palpation Cardiac: Cardiac is normal with exception cardiac irregularly irregular rate and rhythm. No murmurs Respiratory: Lungs clear to auscultation bilateral Abdomen: Soft, nondistended, normal bowel sounds, nontender to palpation diffusely Extremities: 2+ edema bilateral lower extremities. Warm, dry. Skin: No rashes Neuro: Alert and oriented x3, nonfocal exam, grossly intact. (Jair Lyn) 02/02/17 21:12 A portion of this note was documented by scribe services under my direction. I have reviewed the details of the note, within reason, and agree with the documentation. The case summary and management plan written by me. Assessment and plan: This is an 81-year-old female with significant extensive cardiac history and multiple risk factors who comes in complaining of left sided intermittent chest pain times the last 2-3 days. The pain does appear to be more skeletal muscular in nature however it is not reproducible and there isn 't a pleuritic component to it, patient's EKG shows atrial fibrillation otherwise no acute ST-T wave changes Patient's chest x-ray shows cardiomegaly questionable effusion bilateral with interstitial changes that appear to be chronic when compared to the old prior chest x-ray of December 24 of this year. There does not appear to be any new or acute pathology. Patient does have some mild anemia with a hemoglobin of 9.9 when patient was here approximately a month ago her hemoglobin was 10.7. Patient denies any shortness of breath. Patient will be placed in observation to rule out cardiac causes of her pain. ( Andrew Bassett I) Past History <Jair Lyn - Last Filed: 02/02/17 20:26> - Past Medical History Anemia: No Asthma: No Cancer: No Cardiac Disorders: Yes CVA: No COPD: No CHF: No Dementia: No Diabetes: No GI Disorders: Yes (GERD) Disorders: No HTN: Yes () Hypercholesterolemia: Yes Liver Disease: No Seizures: No Thyroid Disease: Yes () - Surgical History Abdominal Surgery: No Appendectomy: No Cardiac Surgery: Yes (STENT 10/27/15) Cholecystectomy: No Lung Surgery: No Neurologic Surgery: No Orthopedic Surgery: No - Suicide/Smoking/Psychosocial Hx Smoking History: Former smoker Have you smoked in the past 12 months: No Number of Cigarettes Smoked Daily: 40 If you are a former smoker, when did you quit?: 23 YEARS AGO Hx Alcohol Use: No Drug/Substance Use Hx: No Substance Use Type: None Hx Substance Use Treatment: No <Andrew Bassett I - Last Filed: 02/02/17 21:16> - Past Medical History Allergies/Adverse Reactions: Allergies Allergy/AdvReac Type Severity Reaction Status Date / Time cephalexin [Cephalexin] Allergy Intermediate Rash Verified 02/02/17 20:07 clindamycin Allergy Intermediate Rash Verified 02/02/17 20:07 naproxen [From Naprosyn] Allergy Intermediate ANKLES Verified 02/02/17 20:07 SWELLED UP Penicillins Allergy Intermediate Rash Verified 02/02/17 20:07 diphenhydramine HCl AdvReac CAN'T Verified 02/02/17 20:07 [From Benadryl] HAVE,HAS GLAUCOMA Home Medications: Ambulatory Orders Travoprost (Benzalkonium) [Travatan 0.004% Eye Drop] 1 gtt OD HS 05/29/11 Levothyroxine [Synthroid -] 100 mcg PO DAILY 03/19/15 Potassium Chloride [Klor-Con M20] 20 meq PO ASDIR 03/19/15 Dorzolamide HCl [Trusopt] 10 ml OD BID 10/15/15 Apixaban [Eliquis] 2.5 mg PO BID 10/11/16 Aspirin [ASA -] 81 mg PO DAILY 10/11/16 Atorvastatin Ca [Lipitor] 40 mg PO HS 10/11/16 Lisinopril 5 mg PO DAILY 10/11/16 Carvedilol [Coreg -] 12.5 mg PO BID #60 tablet 10/12/16 Furosemide [Lasix] 40 mg PO DAILY #30 tablet 10/12/16 Albuterol Sulfate Inhaler - [Ventolin Hfa Inhaler -] 1 - 2 inh PO PRN PRN Cardiac Specific PMH - Complaint Specific PMHX Pacemaker: No <Andrew Bassett I - Last Filed: 02/02/17 21:16> - Vital Signs Last Vital Signs Temp Pulse Resp BP Pulse Ox 98.1 F 93 H 18 130/92 98 02/02/17 19:45 02/02/17 19:45 02/02/17 19:45 02/02/17 19:45 02/02/17 19:45 Heart Score/ECG Review - History History: Slightly suspicious - Electrocardiogram EKG: Non specific repolarization disturbance - Age Age: >/= 65 - Risk Factors Risk Factors Heart Score: Yes Hx Hypercholesterolemia, Yes Hx Hypertension, Yes Smoking History, Yes Positive family hx of cardiac disease Based on the list above the patient has:: >/=3 risk factors or Hx atherosclerotic disease - Troponin Troponin: </= normal limit - Score Heart Score - Total: 5 <Andrew Bassett I - Last Filed: 02/02/17 21:16> ED Treatment Course - LABORATORY CBC & Chemistry Diagram: 02/02/17 19:55 02/02/17 19:55 <Jair Lyn - Last Filed: 02/02/17 20:26> - LABORATORY CBC & Chemistry Diagram: 02/02/17 19:55 02/02/17 19:55 <Andrew Bassett I - Last Filed: 02/02/17 21:16> - ADDITIONAL ORDERS Additional order review: Laboratory Results 02/02/17 02/02/17 02/02/17 19:55 19:55 19:55 WBC 5.4 RBC 3.34 L Hgb 9.9 L Hct 29.9 L MCV 89.5 MCH 29.7 MCHC 33.2 RDW 14.6 Plt Count 161 MPV 8.5 Neutrophils % 53.6 D Lymphocytes % 22.8 D Monocytes % 18.2 H D Eosinophils % 4.2 D Basophils % 1.2 Sodium 130 L Potassium 4.3 Chloride 97 L Carbon Dioxide 25 Anion Gap 8 BUN 39 H D Creatinine 1.4 H D Creat Clearance w eGFR 35.91 Random Glucose 106 Calcium 8.8 Total Bilirubin 1.2 H D AST 17 D ALT 12 Alkaline Phosphatase 48 Creatine Kinase 84 Troponin I < 0.03 L Total Protein 6.4 Albumin 3.9 Urine Color Urine Appearance Urine pH Ur Specific [place] Urine Protein Urine Glucose (UA) Urine Ketones Urine Blood Urine Nitrite Urine Bilirubin Urine Urobilinogen Ur Leukocyte Esterase 02/02/17 19:47 WBC RBC Hgb Hct MCV MCH MCHC RDW Plt Count MPV Neutrophils % Lymphocytes % Monocytes % Eosinophils % Basophils % Sodium Potassium Chloride Carbon Dioxide Anion Gap BUN Creatinine Creat Clearance w eGFR Random Glucose Calcium Total Bilirubin AST ALT Alkaline Phosphatase Creatine Kinase Troponin I Total Protein Albumin Urine Color Yellow Urine Appearance Clear Urine pH 7.0 Ur Specific [place] 1.010 Urine Protein Negative Urine Glucose (UA) Negative Urine Ketones Negative Urine Blood Negative Urine Nitrite Negative Urine Bilirubin Negative Urine Urobilinogen 0.2 Ur Leukocyte Esterase Negative 02/02/17 19:55 RBC 3.34 L MCV 89.5 MCHC 33.2 RDW 14.6 MPV 8.5 Neutrophils % 53.6 D Lymphocytes % 22.8 D Monocytes % 18.2 H D Eosinophils % 4.2 D Basophils % 1.2 - RADIOLOGY Radiology Studies Ordered: Category Date Time Status CHEST X-RAY PORTABLE* [RAD] Stat Radiology 02/02/17 19:47 Taken *DC/Admit/Observation/Transfer <Jair Lyn - Last Filed: 02/02/17 20:26> - Discharge Dispostion Admit: Yes <Andrew Bassett I - Last Filed: 02/02/17 21:16> Diagnosis at time of Disposition: Chest pain Qualifiers: Chest pain type: unspecified Qualified Code(s): R07.9 - Chest pain, unspecified ; R07.9 - Chest pain, unspecified Anemia Qualifiers: Anemia type: unspecified type Qualified Code(s): D64.9 - Anemia, unspecified; D64.9 - Anemia, unspecified - Discharge Dispostion Condition at time of disposition: Stable - Referrals Referrals: Kirsty Hodges MD [Primary Care Provider] - - Attestations Scribe Attestion: 02/02/17 20:31 Documentation prepared by Jair Lyn, acting as medical geneticist for Anrdew Bassett MD. (Jair Lyn)
[2017-02-02 20:10] LABS: BASOPHIL 1.2 % (0-2.0); EOSINOPHIL 4.2 % (0-4.5); MCH 29.7 pg (25.7-33.7); MCHC 33.2 g/dl (32.0-36.0); MEAN CELL VOLUME 89.5 fl (80-96); MEAN PLT VOLUME 8.5 fl (7.5-11.1); NEUTROPHILS 53.6 % (42.8-82.8); PLATELET COUNT 161 K/MM3 (134-434); RDW 14.6 % (11.6-15.6); WHITE BLOOD COUNT 5.4 K/mm3 (4.0-10.8)
[2017-02-02 20:29] LABS: CPK 84 IU/L (26-192)
[2017-02-02 20:30] LABS: ALBUMIN 3.9 g/dl (3.5-5.0); ALK PHOS 48 U/L (32-92); ANION GAP 8 (8-16); BILIRUBIN,TOTAL 1.2 mg/dl (0.2-1.0); CALCIUM 8.8 mg/dl (8.4-10.2); CO2 25 mmol/L (22-28); CREATININE 1.4 mg/dl (0.6-1.3); GLUCOSE,RANDOM 106 mg/dl (74-106); SGOT/AST 17 U/L (10-42); SGPT/ALT 12 U/L (10-40); TOT PROT 6.4 g/dl (6.4-8.3)
[2017-02-02 20:47] LABS: TROPONIN I (DFP) < 0.03 ng/ml (0.03-0.50)
[2017-02-02 20:58] LABS: URINE APPEARANCE Clear; URINE BILIRUBIN Negative (NEGATIVE); URINE BLOOD Negative (NEGATIVE); URINE GLUCOSE (UA) Negative (NEGATIVE); URINE KETONE Negative (NEGATIVE); URINE LEUK ESTERASE Negative (NEGATIVE); URINE NITRITE Negative (NEGATIVE); URINE PROTEIN Negative (NEGATIVE); URINE UROBILINOGEN 0.2 (0.2-1.0)
[2017-02-02 20:59] LABS: URINE COLOR YELLOW
--- NOTE | 2017-02-02 23:00 | HP ---
CHIEF COMPLAINT: Chest Pain PCP: Dr. Hodges HISTORY OF PRESENT ILLNESS: This is a 81 y/o woman with a past medical history of HTN, CAD, [place], Afib. Who presents to the ED with intermittent left sided chest pain x 3 days. Patient reports the quality as dull achy to sharp radiating to her RCW. Patient reports that the pain increases with movement. Patient reports recent increase in her diuretic for lower extremity edema per her PCP. Patient denies fever, chills, cough, dizziness, AP, N/V/D, constipation,melena hematochezia, hematuria, dysuria. ER course was notable for: (1) Trop I - neg x1 (2) EKG- Afib 88 bpm (3) Chest Xray- image Cardiomegaly, bilateral interstitial changes Recent Travel: None PAST MEDICAL HISTORY: HTN HLD [place] Afib (on Eliquis) Anxiety PAST SURGICAL HISTORY: Cardiac Stent Social History: Smoking: Former Alcohol: None Drugs: None Lives at home, ambulates with walker Family History: Non-Contributory Allergies cephalexin [Cephalexin] Allergy (Intermediate, Verified 02/02/17 20:07) Rash clindamycin Allergy (Intermediate, Verified 02/02/17 20:07) Rash naproxen [From Naprosyn] Allergy (Intermediate, Verified 02/02/17 20:07) ANKLES SWELLED UP Penicillins Allergy (Intermediate, Verified 02/02/17 20:07) Rash diphenhydramine HCl [From Benadryl] Adverse Reaction (Verified 02/02/17 20:07) CAN'T HAVE,HAS GLAUCOMA HOME MEDICATIONS: Home Medications Medication Instructions Recorded Travoprost (Benzalkonium) 1 gtt OD HS 05/29/11 [Travatan 0.004% Eye Drop] Levothyroxine [Synthroid -] 100 mcg PO DAILY 03/19/15 Potassium Chloride [Klor-Con M20] 20 meq PO ASDIR 03/19/15 Dorzolamide HCl [Trusopt] 10 ml OD BID 10/15/15 Apixaban [Eliquis] 2.5 mg PO BID 10/11/16 Aspirin [ASA -] 81 mg PO DAILY 10/11/16 Atorvastatin Ca [Lipitor] 40 mg PO HS 10/11/16 Lisinopril 5 mg PO DAILY 10/11/16 Carvedilol [Coreg -] 12.5 mg PO BID #60 tablet 10/12/16 Furosemide [Lasix] 40 mg PO DAILY #30 tablet 10/12/16 Albuterol Sulfate Inhaler - 1 - 2 inh PO PRN PRN 12/24/16 [Ventolin Hfa Inhaler -] REVIEW OF SYSTEMS CONSTITUTIONAL: Absent: fever, chills, diaphoresis, generalized weakness, malaise, loss of appetite, weight change HEENT: Absent: rhinorrhea, nasal congestion, throat pain, throat swelling, difficulty swallowing, mouth swelling, ear pain, eye pain, visual changes CARDIOVASCULAR: chest pain, peripheral edema Absent: syncope, palpitations, irregular heart rate, lightheadedness RESPIRATORY: shortness of breath, dyspnea with exertion, Absent: cough, orthopnea, wheezing, stridor, hemoptysis GASTROINTESTINAL: Absent: abdominal pain, abdominal distension, nausea, vomiting, diarrhea, constipation, melena, hematochezia GENITOURINARY: Absent: dysuria, frequency, urgency, hesitancy, hematuria, flank pain, genital pain MUSCULOSKELETAL: Absent: myalgia, arthralgia, joint swelling, back pain, neck pain SKIN: Absent: rash, itching, pallor HEMATOLOGIC/IMMUNOLOGIC: Absent: easy bleeding, easy bruising, lymphadenopathy, frequent infections ENDOCRINE: Absent: unexplained weight gain, unexplained weight loss, heat intolerance, cold intolerance NEUROLOGIC: Absent: headache, focal weakness or paresthesias, dizziness, unsteady gait, seizure, mental status changes, bladder or bowel incontinence PSYCHIATRIC: Absent: anxiety, depression, suicidal or homicidal ideation, hallucinations. PHYSICAL EXAMINATION Vital Signs - 24 hr 02/02/17 02/02/17 19:45 22:13 Temperature 98.1 F Pulse Rate 93 H Pulse Rate [ 72 Left Radial] Respiratory 18 18 Rate Blood Pressure 130/92 Blood Pressure 127/73 [Left Arm] O2 Sat by Pulse 98 98 Oximetry (%) GENERAL: Awake, alert, and fully oriented, in no acute distress. HEAD: Normal with no signs of trauma. EYES: Pupils equal, round and reactive to light, extraocular movements intact, sclera anicteric, conjunctiva clear. No lid lag. EARS, NOSE, THROAT: Ears normal, nares patent, oropharynx clear without exudates. Moist mucous membranes. NECK: Normal range of motion, supple without lymphadenopathy, JVD, or masses. LUNGS: Breath sounds equal, clear to auscultation bilaterally. No wheezes, and no crackles. No accessory muscle use. HEART: Irregular rate and rhythm, systolic Grade 2 murmur, normal S1 and S2. No rub or gallop. ABDOMEN: Soft, nontender, not distended, normoactive bowel sounds, no guarding, no rebound, no masses. No hepatomegaly or splenomegaly. MUSCULOSKELETAL: Normal range of motion at all joints. No bony deformities or tenderness. No CVA tenderness. UPPER EXTREMITIES: 2+ pulses, warm, well-perfused. No cyanosis. No clubbing. No peripheral edema. LOWER EXTREMITIES: 2+ pulses, warm, well-perfused. No calf tenderness. +1 pitting B/L peripheral edema. NEUROLOGICAL: Cranial nerves II-XII intact. Normal speech. Normal gait with walker PSYCHIATRIC: Cooperative. Good eye contact. Appropriate mood and affect. SKIN: Warm, dry, normal turgor, no rashes or lesions noted, normal capillary refill. Laboratory Results - last 24 hr 02/02/17 02/02/17 02/02/17 19:47 19:55 19:55 WBC 5.4 RBC 3.34 L Hgb 9.9 L Hct 29.9 L MCV 89.5 MCH 29.7 MCHC 33.2 RDW 14.6 Plt Count 161 MPV 8.5 Neutrophils % 53.6 D Lymphocytes % 22.8 D Monocytes % 18.2 H D Eosinophils % 4.2 D Basophils % 1.2 Sodium 130 L Potassium 4.3 Chloride 97 L Carbon Dioxide 25 Anion Gap 8 BUN 39 H D Creatinine 1.4 H D Creat Clearance w eGFR 35.91 Random Glucose 106 Calcium 8.8 Total Bilirubin 1.2 H D AST 17 D ALT 12 Alkaline Phosphatase 48 Creatine Kinase Troponin I Total Protein 6.4 Albumin 3.9 Urine Color Yellow Urine Appearance Clear Urine pH 7.0 Ur Specific [place] 1.010 Urine Protein Negative Urine Glucose (UA) Negative Urine Ketones Negative Urine Blood Negative Urine Nitrite Negative Urine Bilirubin Negative Urine Urobilinogen 0.2 Ur Leukocyte Esterase Negative 02/02/17 19:55 WBC RBC Hgb Hct MCV MCH MCHC RDW Plt Count MPV Neutrophils % Lymphocytes % Monocytes % Eosinophils % Basophils % Sodium Potassium Chloride Carbon Dioxide Anion Gap BUN Creatinine Creat Clearance w eGFR Random Glucose Calcium Total Bilirubin AST ALT Alkaline Phosphatase Creatine Kinase 84 Troponin I < 0.03 L Total Protein Albumin Urine Color Urine Appearance Urine pH Ur Specific [place] Urine Protein Urine Glucose (UA) Urine Ketones Urine Blood Urine Nitrite Urine Bilirubin Urine Urobilinogen Ur Leukocyte Esterase ASSESSMENT/PLAN: This is a 81 y/o woman with a PMHx of Afib (on Eliquis), HTN, HLD, CAD s/p stent , Anemia. Placed on Tele Observation for Chest Pain r/o [place] for further evaluation of their emergent condition. Plan: 1. Chest Pain - r/o [place] - Likely muscular - Tele monitoring - HEART Score 6 - Appreciate Cardiology Consult - Serial enzymes - Continue Asa, BB - Echo 09/2016- LVEF 40%, mild mod dilated RA, severe MR, mod TR, mod pulm HTN, mild - Lipid Panel - Mg, Phos in am 2. Atrial Fibrillation - Continue Eliquis - EKG- reviewed 3. CAD - s/p Stent 4. Renal Insufficiency - Slightly above baseline - Likely secondary to diuretics - Will decrease diuretic dosage - Monitor BMP 5. Hyponatremia - Likely secondary to diuretic - Will decrease Lasix - Monitor BMP - no IVF secondary to concern for fluid overload - Monitor vitals 6. Hypertension - Monitor BP - Continue BB - Will hold Lisinopril secondary to renal insufficiency 7. Hyperlipidemia - Continue Lipitor - Lipid Panel in am - Monitor LFTs 8. Hypothyroid - Continue Levothyroxine - TSH in am 9. Anemia - Slightly below baseline - Will transfuse if Hb < 7.0 - Stool Occult 10. FEN - PO fluids 1L restriction - Replete lytes prn - Low Na Diet 11. DVT Prophylaxis - OOB - SCDs - On Eliquis Code Status: Full Code Problem List - Problem (1) Chest pain Code(s): R07.9 - CHEST PAIN, UNSPECIFIED Qualifiers: Chest pain type: unspecified Qualified Code(s): R07.9 - Chest pain, unspecified; R07.9 - Chest pain, unspecified (2) Atrial fibrillation Code(s): I48.91 - UNSPECIFIED ATRIAL FIBRILLATION Qualifiers: Atrial fibrillation type: unspecified Qualified Code(s): I48.91 - Unspecified atrial fibrillation; I48.91 - Unspecified atrial fibrillation; I48.91 - Unspecified atrial fibrillation; I48.91 - Unspecified atrial fibrillation (3) ASHD (arteriosclerotic heart disease) Code(s): I25.10 - ATHSCL HEART DISEASE OF [place] CORONARY ARTERY W/O ANG PCTRS (4) Acute on chronic systolic (congestive) heart failure Code(s): I50.23 - ACUTE ON CHRONIC SYSTOLIC (CONGESTIVE) HEART FAILURE (5) Hypertension Code(s): I10 - ESSENTIAL (PRIMARY) HYPERTENSION (6) Moderate to severe pulmonary hypertension Code(s): I27.2 - OTHER SECONDARY PULMONARY HYPERTENSION * DO NOT USE * (7) Hyponatremia Code(s): E87.1 - HYPO-OSMOLALITY AND HYPONATREMIA (8) COPD (chronic obstructive pulmonary disease) Code(s): J44.9 - CHRONIC OBSTRUCTIVE PULMONARY DISEASE, UNSPECIFIED (9) Anemia Code(s): D64.9 - ANEMIA, UNSPECIFIED Qualifiers: Anemia type: unspecified type Qualified Code(s): D64.9 - Anemia, unspecified; D64.9 - Anemia, unspecified (10) DVT prophylaxis Code(s): [id number] - Visit type - Emergency Visit Emergency Visit: Yes ED Registration Date: 02/02/17 Care time: The patient presented to the Emergency Department on the above date and was hospitalized for further evaluation of their emergent condition. - New Patient This patient is new to me today: Yes Date on this admission: 02/02/17 - Critical Care Critical Care patient: No
[2017-02-02] MEDS ORDERED: APIXABAN 2.5 MG TABLET PO SCH (23:15)
[2017-02-03 00:21] VITALS: BMI 23.8
[2017-02-03] MEDS ORDERED: ALBUTEROL SO4 0.5 % INH SOLN 2.5 MG/0.5 ML VIAL.NEB. NEB PRN (07:35)
--- NOTE | 2017-02-03 08:53 | EKG ---
Test Reason : Blood Pressure : / mmHG Vent. Rate : 088 BPM Atrial Rate : 073 BPM P-R Int : 000 ms QRS Dur : 084 ms QT Int : 354 ms P-R-T Axes : 000 054 182 degrees QTc Int : 428 ms ATRIAL FIBRILLATION NONSPECIFIC T WAVE ABNORMALITY ABNORMAL ECG WHEN COMPARED WITH ECG OF 24-DEC-2016 10:46, NO SIGNIFICANT CHANGE WAS FOUND Confirmed by CHERRY STACY MD ([id number]) on 02/03/2017 8:53:16 AM Referred By: KELLY VERDE Confirmed By:CHERRY STACY MD
[2017-02-03] MEDS ORDERED: PT OWN MED DRAWER 7, Y5N ONE (09:17)
[2017-02-03] MEDS: POTASSIUM CHLORIDE TABS 20 MEQ TABLET.ER (FP) PO SCH (09:21)
[2017-02-03] MEDS: CARVEDILOL 12.5 MG TABLET (FP) PO SCH (09:21)
[2017-02-03] MEDS: LEVOTHYROXINE NA 100 MCG TABLET (FP) PO SCH (09:21)
[2017-02-03] MEDS: APIXABAN 2.5 MG TABLET PO SCH ×2 (09:21→21:35)
[2017-02-03] MEDS: ASPIRIN 81 MG CHEWABLE TABLETS PO SCH (09:21)
[2017-02-03] MEDS: FUROSEMIDE 40 MG TABLET (FP) PO SCH (09:21)
[2017-02-03] MEDS: DORZOLAMIDE 2% HCL OPHTHALMIC SOLUTION 10 ML BOTTLE OU SCH ×2 (09:22→21:35)
[2017-02-03 09:27] LABS: BASOPHIL 1.6 % (0-2.0); EOSINOPHIL 4.6 % (0-4.5); MCH 29.6 pg (25.7-33.7); MCHC 32.3 g/dl (32.0-36.0); MEAN CELL VOLUME 91.8 fl (80-96); MEAN PLT VOLUME 8.9 fl (7.5-11.1); NEUTROPHILS 53.9 % (42.8-82.8); PLATELET COUNT 133 K/MM3 (134-434); RDW 14.8 % (11.6-15.6)
--- NOTE | 2017-02-03 09:37 | CON.CARD ---
Consult Consult Specialty:: Cardiology Reason for Consultation:: cp - History of Present Illness History of Present Illness: This is a 81 y/o woman with a past medical history of HTN, CAD, [place], Afib. Who presents to the ED with intermittent left sided chest pain x 3 days. Patient reports the quality as dull achy to sharp radiating to her RCW. Patient reports that the pain increases with movement. Patient reports recent increase in her diuretic for lower extremity edema per her PCP. Patient denies fever, chills, cough, dizziness, AP, N/V/D, constipation,melena hematochezia, hematuria, dysuria. ER course was notable for: (1) Trop I - neg x1 (2) EKG- Afib 88 bpm (3) Chest Xray- image Cardiomegaly, bilateral interstitial changes NSTEMI: (coronary angiogram 10/20/2015: triple vessel disease : Lt Main: 40%; LAD proximal 40%, mid 70%, distal 50%; LCx ostial 80%, proximal 60%, mid 95%, OM2 60 %; Ramus intermedius 70%; RCA proximal 40%, mid 95% hazy lesion, distal 60%; reduced LVEF, with apical akinesis and mid-inferior wall severe hypokinesis); PAD (bilateral SFA 30%) systolic CHF (mild LV dysfunction on 02/2016 ECHO; severe MR) Severe pulmonary HTN Chronic low back pain Hyperlipidemia Hypertension Hypothyroidism PAD scoliosis - Past Medical History Cardio/Vascular: Yes: CAD, HTN, Hyperlipdemia Psych: Yes: Anxiety - Past Surgical History Past Surgical History: Yes: Stent (coronary) - Alcohol/Substance Use Hx Alcohol Use: No - Smoking History Smoking history: Former smoker Have you smoked in the past 12 months: No Aproximately how many cigarettes per day: 40 If you are a former smoker, when did you quit?: 23 YEARS AGO Home Medications - Allergies Allergies/Adverse Reactions: Allergies Allergy/AdvReac Type Severity Reaction Status Date / Time cephalexin [Cephalexin] Allergy Intermediate Rash Verified 02/02/17 20:07 clindamycin Allergy Intermediate Rash Verified 02/02/17 20:07 naproxen [From Naprosyn] Allergy Intermediate ANKLES Verified 02/02/17 20:07 SWELLED UP Penicillins Allergy Intermediate Rash Verified 02/02/17 20:07 diphenhydramine HCl AdvReac CAN'T Verified 02/02/17 20:07 [From Mg] HAVE,HAS GLAUCOMA - Home Medications Home Medications: Ambulatory Orders Travoprost (Benzalkonium) [Travatan 0.004% Eye Drop] 1 gtt OD HS 05/29/11 Levothyroxine [Synthroid -] 100 mcg PO DAILY 03/19/15 Potassium Chloride [Klor-Con M20] 20 meq PO ASDIR 03/19/15 Dorzolamide HCl [Trusopt] 10 ml OD BID 10/15/15 Apixaban [Eliquis] 2.5 mg PO BID 10/11/16 Aspirin [ASA -] 81 mg PO DAILY 10/11/16 Atorvastatin Ca [Lipitor] 40 mg PO HS 10/11/16 Lisinopril 5 mg PO DAILY 10/11/16 Carvedilol [Coreg -] 12.5 mg PO BID #60 tablet 10/12/16 Furosemide [Lasix] 40 mg PO DAILY #30 tablet 10/12/16 Albuterol Sulfate Inhaler - [Ventolin Hfa Inhaler -] 1 - 2 inh PO PRN PRN Review of Systems - Review of Systems Constitutional: reports: No Symptoms Eyes: reports: No Symptoms HENT: reports: No Symptoms Neck: reports: No Symptoms Cardiovascular: reports: Chest Pain Gastrointestinal: reports: No Symptoms Genitourinary: reports: No Symptoms Breasts: reports: No Symptoms Reported Musculoskeletal: reports: No Symptoms Integumentary: reports: No Symptoms Neurological: reports: No Symptoms Endocrine: reports: No Symptoms Hematology/Lymphatic: reports: No Symptoms Psychiatric: reports: No Symptoms Vital Signs: Vital Signs Temperature 98.6 F 02/03/17 06:00 Pulse Rate 85 02/03/17 06:00 Respiratory Rate 19 02/03/17 06:00 Blood Pressure 113/71 02/03/17 06:00 O2 Sat by Pulse Oximetry (%) 94 L 02/03/17 06:00 Constitutional: Yes: Well Nourished, No Distress, Calm Eyes: Yes: WNL, Conjunctiva Clear, EOM Intact HENT: Yes: WNL, Atraumatic, Normocephalic Neck: Yes: WNL, Supple, Trachea Midline Respiratory: Yes: WNL, Regular, CTA Bilaterally Gastrointestinal: Yes: WNL, Normal Bowel Sounds Renal/: Yes: WNL Cardiovascular: Yes: WNL, Regular Rate and Rhythm Musculoskeletal: Yes: WNL Extremities: Yes: WNL Integumentary: Yes: WNL Neurological: Yes: WNL, Alert, Oriented ...Motor Strength: WNL Psychiatric: Yes: WNL, Alert, Oriented - Other Data Labs, Other Data: CBC, BMP 02/03/17 07:38 Troponin, BNP 02/03/17 02:00 Troponin I 0.02 Troponin, BNP 02/03/17 02:00 Troponin I 0.02 Laboratory Tests 02/02/17 02/02/17 02/02/17 19:47 19:55 19:55 WBC 5.4 RBC 3.34 L Hgb 9.9 L Hct 29.9 L MCV 89.5 MCH 29.7 MCHC 33.2 RDW 14.6 Plt Count 161 MPV 8.5 Neutrophils % 53.6 D Lymphocytes % 22.8 D Monocytes % 18.2 H D Eosinophils % 4.2 D Basophils % 1.2 Sodium 130 L Potassium 4.3 Chloride 97 L Carbon Dioxide 25 Anion Gap 8 BUN 39 H D Creatinine 1.4 H D Creat Clearance w eGFR 35.91 Random Glucose 106 Calcium 8.8 Phosphorus Magnesium Total Bilirubin 1.2 H D AST 17 D ALT 12 Alkaline Phosphatase 48 Creatine Kinase Troponin I Total Protein 6.4 Albumin 3.9 Triglycerides Cholesterol Total LDL Cholesterol HDL Cholesterol Urine Color Yellow Urine Appearance Clear Urine pH 7.0 Ur Specific [place] 1.010 Urine Protein Negative Urine Glucose (UA) Negative Urine Ketones Negative Urine Blood Negative Urine Nitrite Negative Urine Bilirubin Negative Urine Urobilinogen 0.2 Ur Leukocyte Esterase Negative 02/02/17 02/03/17 02/03/17 19:55 02:00 07:38 WBC 4.0 RBC 3.03 L Hgb 9.0 L Hct 27.8 L MCV 91.8 MCH 29.6 MCHC 32.3 RDW 14.8 Plt Count 133 L MPV 8.9 Neutrophils % 53.9 Lymphocytes % 23.0 Monocytes % 16.9 H Eosinophils % 4.6 H Basophils % 1.6 Sodium Potassium Chloride Carbon Dioxide Anion Gap BUN Creatinine Creat Clearance w eGFR Random Glucose Calcium Phosphorus Magnesium Total Bilirubin AST ALT Alkaline Phosphatase Creatine Kinase 84 Troponin I < 0.03 L 0.02 Total Protein Albumin Triglycerides Cholesterol Total LDL Cholesterol HDL Cholesterol Urine Color Urine Appearance Urine pH Ur Specific [place] Urine Protein Urine Glucose (UA) Urine Ketones Urine Blood Urine Nitrite Urine Bilirubin Urine Urobilinogen Ur Leukocyte Esterase 02/03/17 02/03/17 02/03/17 07:38 07:38 07:38 WBC RBC Hgb Hct MCV MCH MCHC RDW Plt Count MPV Neutrophils % Lymphocytes % Monocytes % Eosinophils % Basophils % Sodium 133 L Potassium 4.2 Chloride 99 Carbon Dioxide 25 Anion Gap 9 BUN 32 H Creatinine 1.1 D Creat Clearance w eGFR Random Glucose 95 Calcium 9.1 Phosphorus 3.7 Magnesium 1.8 Total Bilirubin AST ALT Alkaline Phosphatase Creatine Kinase Troponin I < 0.03 L Total Protein Albumin Triglycerides 52 D Cholesterol 118 Total LDL Cholesterol 51 HDL Cholesterol 57 Urine Color Urine Appearance Urine pH Ur Specific [place] Urine Protein Urine Glucose (UA) Urine Ketones Urine Blood Urine Nitrite Urine Bilirubin Urine Urobilinogen Ur Leukocyte Esterase Imaging - Results Chest X-ray: Image Reviewed (r ll infiltrate) EKG: Image Reviewed Problem List - Problems (1) Anemia Code(s): D64.9 - ANEMIA, UNSPECIFIED Qualifiers: Anemia type: unspecified type Qualified Code(s): D64.9 - Anemia, unspecified; D64.9 - Anemia, unspecified (2) Chest pain Code(s): R07.9 - CHEST PAIN, UNSPECIFIED Qualifiers: Chest pain type: unspecified Qualified Code(s): R07.9 - Chest pain, unspecified; R07.9 - Chest pain, unspecified (3) Hyponatremia Code(s): E87.1 - HYPO-OSMOLALITY AND HYPONATREMIA (4) ASHD (arteriosclerotic heart disease) Code(s): I25.10 - ATHSCL HEART DISEASE OF [place] CORONARY ARTERY W/O ANG PCTRS (5) Acute on chronic systolic (congestive) heart failure Code(s): I50.23 - ACUTE ON CHRONIC SYSTOLIC (CONGESTIVE) HEART FAILURE (6) Ankle pain, left Code(s): M25.572 - PAIN IN LEFT ANKLE AND JOINTS OF LEFT FOOT (7) Anxiety Code(s): F41.9 - ANXIETY DISORDER, UNSPECIFIED (8) Atrial fibrillation Code(s): I48.91 - UNSPECIFIED ATRIAL FIBRILLATION Qualifiers: Atrial fibrillation type: unspecified Qualified Code(s): I48.91 - Unspecified atrial fibrillation; I48.91 - Unspecified atrial fibrillation; I48.91 - Unspecified atrial fibrillation; I48.91 - Unspecified atrial fibrillation (9) COPD (chronic obstructive pulmonary disease) Code(s): J44.9 - CHRONIC OBSTRUCTIVE PULMONARY DISEASE, UNSPECIFIED (10) COPD exacerbation Code(s): J44.1 - CHRONIC OBSTRUCTIVE PULMONARY DISEASE W (ACUTE) EXACERBATION (11) COPD mixed type Code(s): J44.9 - CHRONIC OBSTRUCTIVE PULMONARY DISEASE, UNSPECIFIED (12) Community acquired pneumonia Code(s): J18.9 - PNEUMONIA, UNSPECIFIED ORGANISM (13) DVT prophylaxis Code(s): [id number] - (14) Elevated glucose Code(s): R73.09 - OTHER ABNORMAL GLUCOSE (15) Elevated lactic acid level Code(s): E87.2 - ACIDOSIS (16) Elevated troponin Code(s): R79.89 - OTHER SPECIFIED ABNORMAL FINDINGS OF BLOOD CHEMISTRY (17) Elevated troponin I level Code(s): R79.89 - OTHER SPECIFIED ABNORMAL FINDINGS OF BLOOD CHEMISTRY (18) [place] cardiac risk >20% in next 10 years Code(s): Z91.89 - [facility] PERSONAL RISK FACTORS, NOT ELSEWHERE CLASSIFIED (19) Hypertension Code(s): I10 - ESSENTIAL (PRIMARY) HYPERTENSION (20) Lactic acid acidosis Code(s): E87.2 - ACIDOSIS (21) Moderate to severe pulmonary hypertension Code(s): I27.2 - OTHER SECONDARY PULMONARY HYPERTENSION * DO NOT USE * (22) NSTEMI (non-ST elevated myocardial infarction) Code(s): I21.4 - NON-ST ELEVATION (NSTEMI) MYOCARDIAL INFARCTION (23) Plantar fasciitis Code(s): M72.2 - PLANTAR FASCIAL FIBROMATOSIS (24) Pneumonia Code(s): J18.9 - PNEUMONIA, UNSPECIFIED ORGANISM (25) Respiratory distress Code(s): R06.00 - DYSPNEA, UNSPECIFIED (26) Respiratory failure Code(s): J96.90 - RESPIRATORY FAILURE, UNSP, UNSP W HYPOXIA OR HYPERCAPNIA (27) Sepsis Code(s): A41.9 - SEPSIS, UNSPECIFIED ORGANISM (28) Sepsis due to pneumonia Code(s): J18.9 - PNEUMONIA, UNSPECIFIED ORGANISM A41.9 - SEPSIS, UNSPECIFIED ORGANISM Assessment/Plan angina CAD coronary angiogram 10/20/2015: triple vessel disease : Lt Main: 40%; LAD proximal 40%, mid 70%, distal 50%; LCx ostial 80%, proximal 60%, mid 95%, OM2 60 %; Ramus intermedius 70%; RCA proximal 40%, mid 95% hazy lesion, distal 60%; reduced LVEF, with apical akinesis and mid-inferior wall severe hypokinesis); PAD (bilateral SFA 30%) systolic CHF (mild LV dysfunction on 02/2016 ECHO; severe MR) Severe pulmonary HTN Chronic low back pain Hyperlipidemia Hypertension Hypothyroidism PAD scoliosis AF Plan r/o [place] telemetry ECHO Persantine MIBI ST cont ac
[2017-02-03 09:42] LABS: ANION GAP 9 (8-16); CALCIUM 9.1 mg/dl (8.4-10.2); CO2 25 mmol/L (22-28); CREATININE 1.1 mg/dl (0.6-1.3); GLUCOSE,RANDOM 95 mg/dl (74-106); MAGNESIUM 1.8 mg/dL (1.8-2.4); PHOSPHOROUS 3.7 mg/dl (2.5-4.6)
[2017-02-03 09:46] LABS: CHOLESTEROL 118 mg/dl
--- NOTE | 2017-02-03 12:58 | PN ---
Progress Note (short form) - Note Progress Note: Subjective: The patient was seen and examined at the bedside. She has no complaints at this time. Denies chest pain. Current Medications Generic Name Dose Route Start Last Admin Trade Name Freq PRN Reason Stop Dose Admin Albuterol Sulfate 1 amp 02/03/17 07:35 Ventolin 0.5% - NEB Q4H PRN SHORT OF BREATH/WHEEZING Apixaban 2.5 mg 02/03/17 10:00 02/03/17 09:21 Eliquis - PO 2.5 mg BID LUKE Administration Aspirin 81 mg 02/03/17 10:00 02/03/17 09:21 Asa - PO 81 mg DAILY [facility]KE Administration Atorvastatin Calcium 40 mg 02/03/17 22:00 Lipitor - PO HS LUKE Carvedilol 12.5 mg 02/03/17 10:00 02/03/17 09:21 Coreg - PO 12.5 mg BID LUKE Administration Dorzolamide HCl 1 drop 02/03/17 10:00 02/03/17 09:22 Trusopt 2% OU 1 drop BID [facility]KE Administration Furosemide 40 mg 02/03/17 10:00 02/03/17 09:21 Lasix - PO 40 mg DAILY [facility] Administration Levothyroxine Sodium 100 mcg 02/03/17 08:45 02/03/17 09:21 Synthroid - PO 100 mcg DAILY@0700 LUKE Administration Potassium Chloride 20 meq 02/03/17 10:00 02/03/17 09:21 K-Dur - PO 20 meq DAILY [facility]KE Administration Objective: Vital Signs Period Temp Pulse Resp BP Sys/[place] Pulse Ox Last 24 Hr 97.5 F-98.6 F 72-93 18-19 113-130/71-92 94-98 Physical Exam: GENERAL: Awake, alert, and fully oriented, in no acute distress. EYES: Pupils equal, round and reactive to light, extraocular movements intact, sclera anicteric, conjunctiva clear. No lid lag. EARS, NOSE, THROAT: Ears normal, nares patent, oropharynx clear without exudates. Moist mucous membranes. NECK: Normal range of motion, supple without lymphadenopathy, JVD, or masses. LUNGS: Breath sounds equal, clear to auscultation bilaterally. No wheezes, and no crackles. No accessory muscle use. HEART: Irregular rate and rhythm, systolic Grade 2 murmur, normal S1 and S2. No rub or gallop. ABDOMEN: Soft, nontender, not distended, normoactive bowel sounds, no guarding, no rebound, no masses. MUSCULOSKELETAL: Normal range of motion at all joints. No bony deformities or tenderness. No CVA tenderness. UPPER EXTREMITIES: 2+ pulses, warm, well-perfused. No cyanosis. No clubbing. No peripheral edema. LOWER EXTREMITIES: 1+ b/l pitting edema. 2+ pulses, warm, well-perfused. No calf tenderness. NEUROLOGICAL: Cranial nerves II-XII intact. Normal speech. Normal gait with walker CBCD WBC 4.0 K/mm3 (4.0-10.8) 02/03/17 07:38 RBC 3.03 M/mm3 (3.60-5.2) L 02/03/17 07:38 Hgb 9.0 GM/dl (10.7-15.3) L 02/03/17 07:38 Hct 27.8 % (32.4-45.2) L 02/03/17 07:38 MCV 91.8 fl (80-96) 02/03/17 07:38 MCHC 32.3 g/dl (32.0-36.0) 02/03/17 07:38 RDW 14.8 % (11.6-15.6) 02/03/17 07:38 Plt Count 133 K/MM3 (134-434) L 02/03/17 07:38 MPV 8.9 fl (7.5-11.1) 02/03/17 07:38 CMP Sodium 133 mmol/L (136-145) L 02/03/17 07:38 Potassium 4.2 mmol/L (3.5-5.1) 02/03/17 07:38 Chloride 99 mmol/L (98-107) 02/03/17 07:38 Carbon Dioxide 25 mmol/L (22-28) 02/03/17 07:38 Anion Gap 9 (8-16) 02/03/17 07:38 BUN 32 mg/dl (7-18) H 02/03/17 07:38 Creatinine 1.1 mg/dl (0.6-1.3) D 02/03/17 07:38 Creat Clearance w eGFR 35.91 (>60) 02/02/17 19:55 Random Glucose 95 mg/dl (74-106) 02/03/17 07:38 Calcium 9.1 mg/dl (8.4-10.2) 02/03/17 07:38 Total Bilirubin 1.2 mg/dl (0.2-1.0) H D 02/02/17 19:55 AST 17 U/L (10-42) D 02/02/17 19:55 ALT 12 U/L (10-40) 02/02/17 19:55 Alkaline Phosphatase 48 U/L (32-92) 02/02/17 19:55 Total Protein 6.4 g/dl (6.4-8.3) 02/02/17 19:55 Albumin 3.9 g/dl (3.5-5.0) 02/02/17 19:55 CARDIAC ENZYMES Creatine Kinase 84 IU/L (26-192) 02/02/17 19:55 Troponin I < 0.03 ng/ml (0.03-0.50) L 02/03/17 07:38 Assessment: This is an 81 year old female with PMHx of A.fib (on Eliquis), HTN, hyperlipidemia, CAD s/p stent, anemia, who presented to the ED with chest pain. Plan: 1) Chest pain - ACS r/o trop x3 negative - EKG reviewed - F/u ECHO - F/u stress test - Appreciate cardiology consult ASocofib - Rate controlled - Continue Eliquis CAD s/p stenting - Continue ASA HTN - Restart Lisinopril Hyperlipidemia - Continue Lipitor 2) Endocrine: Hypothyroidism - Continue Synthroid - F/u TSH 3) Heme: Anemia - Improving - Continue to monitor 4) F/E/N: - Hyponatremia: continue to monitor - Sodium controlled diet 5) Prophylaxis: - On Eliquis 2.5mg po bid. Unclear why decreased dosing. Awaiting call back from loader technician to discuss 6) Dispo: - Once condition improves CODE STATUS: FULL CODE Visit type - Emergency Visit Emergency Visit: Yes ED Registration Date: 02/02/17 Care time: The patient presented to the Emergency Department on the above date and was hospitalized for further evaluation of their emergent condition. - New Patient This patient is new to me today: Yes Date on this admission: 02/03/17 - Critical Care Critical Care patient: No
[2017-02-03] MEDS: ATORVASTATIN CA 40 MG TABLET (FP) PO SCH (21:35)
[2017-02-04] MEDS: LEVOTHYROXINE NA 100 MCG TABLET (FP) PO SCH (06:20)
[2017-02-04 07:57] LABS: MCH 29.4 pg (25.7-33.7); MCHC 32.5 g/dl (32.0-36.0); MEAN CELL VOLUME 90.3 fl (80-96); MEAN PLT VOLUME 8.5 fl (7.5-11.1); PLATELET COUNT 149 K/MM3 (134-434); RDW 14.8 % (11.6-15.6); WHITE BLOOD COUNT 4.7 K/mm3 (4.0-10.8)
[2017-02-04 08:16] LABS: ANION GAP 8 (8-16); CALCIUM 9.1 mg/dl (8.4-10.2); CO2 24 mmol/L (22-28); CREATININE 1.1 mg/dl (0.6-1.3); GLUCOSE,RANDOM 104 mg/dl (74-106)
[2017-02-04] MEDS ORDERED: WATER IVPB ONE (10:00)
[2017-02-04] MEDS ORDERED: DEXTROSE 5% IVPB ONE (10:00)
[2017-02-04] MEDS ORDERED: DIPYRIDAMOLE STRESS TEST IVPB ONE (10:00)
[2017-02-04 11:00] LABS: THYROID STIMULATING HORMONE 0.61 uIU/ml (0.358-3.74)
[2017-02-04] MEDS ORDERED: PT OWN MED DRAWER 7, Y5N ONE (13:34)
[2017-02-04] MEDS: CARVEDILOL 12.5 MG TABLET (FP) PO SCH ×2 (13:36→21:19)
[2017-02-04] MEDS: FUROSEMIDE 40 MG TABLET (FP) PO SCH (13:36)
[2017-02-04] MEDS: POTASSIUM CHLORIDE TABS 20 MEQ TABLET.ER (FP) PO SCH (13:36)
[2017-02-04] MEDS: APIXABAN 2.5 MG TABLET PO SCH ×2 (13:36→21:18)
[2017-02-04] MEDS: ASPIRIN 81 MG CHEWABLE TABLETS PO SCH (13:36)
[2017-02-04] MEDS: LISINOPRIL 5 MG TABLET (FP) PO SCH (13:37)
[2017-02-04] MEDS: DORZOLAMIDE 2% HCL OPHTHALMIC SOLUTION 10 ML BOTTLE OU SCH ×2 (13:37→21:21)
--- NOTE | 2017-02-04 14:27 | PN ---
Physical Exam: SUBJECTIVE: Patient seen and examined. Pt returned from stress test and ate lunch. She feels she may have eaten lunch too fast because immediately after she finished eating, she began to feel nauseas and went to the bathroom and "threw up a little." Reports feeling better now. Denies chest pain or SOB. OBJECTIVE: Vital Signs - 24 hr 3 02/03/17 02/03/17 02/03/17 14:32 20:16 20:22 Temperature 97.6 F 97.7 F Pulse Rate 63 70 Respiratory 16 16 20 Rate Blood Pressure 116/71 124/68 O2 Sat by Pulse 100 100 Oximetry (%) 3 02/03/17 02/04/17 02/04/17 23:00 06:00 06:17 Temperature 98.0 F Pulse Rate 67 Respiratory 20 18 Rate Blood Pressure 120/67 O2 Sat by Pulse 100 99 Oximetry (%) 3 02/04/17 02/04/17 06:18 14:13 Temperature 97.5 F L Pulse Rate 66 Respiratory 18 16 Rate Blood Pressure 112/53 O2 Sat by Pulse 99 99 Oximetry (%) GENERAL: The patient is awake, alert, and fully oriented, in no acute distress. HEAD: Normal with no signs of trauma. EYES: PERRL, extraocular movements intact, sclera anicteric, conjunctiva clear. No ptosis. ENT: Ears normal, nares patent, oropharynx clear without exudates, moist mucous membranes. NECK: Trachea midline, full range of motion, supple. LUNGS: Breath sounds equal, clear to auscultation bilaterally, no wheezes, no crackles, no accessory muscle use. HEART: Irregular rate and rhythm, S1, S2 without murmur, rub or gallop. ABDOMEN: Soft, nontender, nondistended, normoactive bowel sounds, no guarding, no rebound, no hepatosplenomegaly, no masses. EXTREMITIES: 2+ pulses, warm, well-perfused, no edema. NEUROLOGICAL: Cranial nerves II through XII grossly intact. Normal speech, gait not observed. PSYCH: Normal mood, normal affect. SKIN: Warm, dry, normal turgor, no rashes or lesions noted Laboratory Results - last 24 hr 3 02/03/17 02/04/17 02/04/17 07:38 07:25 07:25 WBC 4.7 RBC 3.31 L Hgb 9.7 L Hct 29.9 L MCV 90.3 MCH 29.4 MCHC 32.5 RDW 14.8 Plt Count 149 MPV 8.5 Sodium 132 L Potassium 4.3 Chloride 100 Carbon Dioxide 24 Anion Gap 8 BUN 30 H Creatinine 1.1 Random Glucose 104 Calcium 9.1 Creatine Kinase Cancelled Troponin I Cancelled TSH 0.61 D Active Medications 3 Generic Name Dose Route Start Last Admin Trade Name Freq PRN Reason Stop Dose Admin Albuterol Sulfate 1 amp 02/03/17 07:35 Ventolin 0.5% - NEB Q4H PRN SHORT OF BREATH/WHEEZING Apixaban 2.5 mg 02/03/17 10:00 02/04/17 13:36 Eliquis - PO 2.5 mg BID [facility] Administration Aspirin 81 mg 02/03/17 10:00 02/04/17 13:36 Asa - PO 81 mg DAILY [facility] Administration Atorvastatin Calcium 40 mg 02/03/17 22:00 02/03/17 21:35 Lipitor - PO 40 mg HS LUKE Administration Carvedilol 12.5 mg 02/03/17 10:00 02/04/17 13:36 Coreg - PO 12.5 mg BID [facility] Administration Dorzolamide HCl 1 drop 02/03/17 10:00 02/04/17 13:37 Trusopt 2% OU 1 drop BID [facility] Administration Furosemide 40 mg 02/03/17 10:00 02/04/17 13:36 Lasix - PO 40 mg DAILY [facility] Administration Levothyroxine Sodium 100 mcg 02/03/17 08:45 02/04/17 06:20 Synthroid - PO 100 mcg DAILY@0700 [facility] Administration Lisinopril 5 mg 02/04/17 10:00 02/04/17 13:37 Prinivil PO 5 mg DAILY [facility] Administration Potassium Chloride 20 meq 02/03/17 10:00 02/04/17 13:36 K-Dur - PO 20 meq DAILY [facility] Administration ASSESSMENT/PLAN: 81 year old female with PMHx of ASocofib (on Eliquis), HTN, hyperlipidemia, CAD s/ p stent, anemia, who presented to the ED with chest pain. Plan: Chest pain - ACS ruled out, trop x3 negative - EKG reviewed - F/u ECHO, procedure done, awaiting results - F/u stress test, procedure done, awaiting results - Appreciate cardiology consult A.fib - Rate controlled - Continue Eliquis CAD s/p stenting - Continue ASA HTN - Restart Lisinopril Hyperlipidemia - Continue Lipitor Endocrine: Hypothyroidism - Continue Synthroid - TSH 0.61 Anemia - Hgb 9.7 today, stable - Continue to monitor F/E/N: - Hyponatremia: continue to monitor, change to regular diet - regular diet Prophylaxis: - On Eliquis 2.5mg po bid. cont same. Dispo: If echo/stress test WNLJOSE ELIAS in am with outpatient f/u CODE STATUS: FULL CODE Visit type - Emergency Visit Emergency Visit: Yes ED Registration Date: 02/02/17 Care time: The patient presented to the Emergency Department on the above date and was hospitalized for further evaluation of their emergent condition. - New Patient This patient is new to me today: Yes Date on this admission: 02/04/17 - Critical Care Critical Care patient: No
[2017-02-04] MEDS: ATORVASTATIN CA 40 MG TABLET (FP) PO SCH (21:19)
[2017-02-05] MEDS: LEVOTHYROXINE NA 100 MCG TABLET (FP) PO SCH (06:24)
--- NOTE | 2017-02-05 06:28 | PN ---
Progress Note, Physician Chief Complaint: Pt is A&Ox3; no chest pain, palpitations, or dyspnea.Awaits stress MIBI. History of Present Illness: The patient is a 81 year old white woman, with a significant past medical history of COPD, atrial fibrillation, coronary artery disease, with RI 10/2015-- >coronary stent 10/27/2015, hypertension, hypercholesterolemia, hypothyroidism, hyperlipidemia, systolic CHF (ECHO 09/2016: LVEF 40-45%, severe MR, moderate TR , moderate pulmonary hypertension), who presents to the emergency department c/ o left sided non-pleuritic chest pain that began approx. 3 days ago. The patient describes the chest pain as a sharp (sometime dull) pain that occurs with movement and last for approx. 1-2 seconds. The patient reports shortness of breath secondary to the chest pain. She denies diaphoresis, lightheadedness or dizziness. She denies recent nausea, vomiting, fever or chills. - Current Medication List Current Medications: Active Medications Albuterol Sulfate (Ventolin 0.5% -) 1 amp NEB Q4H PRN PRN Reason: SHORT OF BREATH/WHEEZING Apixaban (Eliquis -) 2.5 mg PO BID [facility] Last Admin: 02/04/17 21:18 Dose: 2.5 mg Aspirin (Asa -) 81 mg PO DAILY [facility] Last Admin: 02/04/17 13:36 Dose: 81 mg Atorvastatin Calcium (Lipitor -) 40 mg PO HS [facility] Last Admin: 02/04/17 21:19 Dose: 40 mg Carvedilol (Coreg -) 12.5 mg PO BID [facility] Last Admin: 02/04/17 21:19 Dose: 12.5 mg Dorzolamide HCl (Trusopt 2%) 1 drop OU BID [facility] Last Admin: 02/04/17 21:21 Dose: 1 drop Furosemide (Lasix -) 40 mg PO DAILY [facility] Last Admin: 02/04/17 13:36 Dose: 40 mg Levothyroxine Sodium (Synthroid -) 100 mcg PO DAILY@0700 [facility] Last Admin: 02/05/17 06:24 Dose: 100 mcg Lisinopril (Prinivil) 5 mg PO DAILY [facility] Last Admin: 02/04/17 13:37 Dose: 5 mg Potassium Chloride (K-Dur -) 20 meq PO DAILY [facility] Last Admin: 02/04/17 13:36 Dose: 20 meq - Objective Vital Signs: Vital Signs Temperature 98.4 F 02/05/17 06:00 Pulse Rate 80 02/05/17 06:00 Respiratory Rate 19 02/05/17 06:00 Blood Pressure 119/64 02/05/17 06:00 O2 Sat by Pulse Oximetry (%) 98 02/05/17 06:00 Constitutional: Yes: Calm Eyes: Yes: WNL HENT: Yes: WNL Neck: Yes: WNL Cardiovascular: Yes: Pulse Irregular, S1 (varies in intensity) Respiratory: Yes: Regular Gastrointestinal: Yes: Soft ...Rectal Exam: Yes: Deferred Genitourinary: No: Anuria Breast(s): Yes: WNL Musculoskeletal: Yes: Joint Stiffness Extremities: Yes: Cool Edema: No Peripheral Pulses WNL: Yes Integumentary: Yes: WNL Neurological: Yes: WNL Psychiatric: Yes: WNL Labs: CBC, BMP 02/04/17 07:25 02/04/17 07:25 Abnormal Lab Results 02/04/17 02/04/17 07:25 07:25 RBC 3.31 L Hgb 9.7 L Hct 29.9 L Sodium 132 L BUN 30 H - ....Imaging EKG: Image Reviewed (AF, controlled VR) Problem List - Problems (1) Anemia Assessment/Plan: decrease in Hb since recent admission On apixaban (AF) and ASA (CAD) Check stool quaiac; orthostatic vital signs; Hb. Code(s): D64.9 - ANEMIA, UNSPECIFIED Qualifiers: Anemia type: unspecified type Qualified Code(s): D64.9 - Anemia, unspecified; D64.9 - Anemia, unspecified (2) Chest pain Assessment/Plan: TNI 0.02-->0.03 No acute STT changes on EKG LDL cholesterol 51; HDL 57. Await Persantine stress MIBI. Code(s): R07.9 - CHEST PAIN, UNSPECIFIED Qualifiers: Chest pain type: unspecified Qualified Code(s): R07.9 - Chest pain, unspecified; R07.9 - Chest pain, unspecified (3) Hyponatremia Code(s): E87.1 - HYPO-OSMOLALITY AND HYPONATREMIA (4) ASHD (arteriosclerotic heart disease) Code(s): I25.10 - ATHSCL HEART DISEASE OF [place] CORONARY ARTERY W/O ANG PCTRS (5) Acute on chronic systolic (congestive) heart failure Assessment/Plan: on carvedilol, lisinopril, furosemide (slight improvement in Na, though remains low), KCl. Consider spironolactone. Code(s): I50.23 - ACUTE ON CHRONIC SYSTOLIC (CONGESTIVE) HEART FAILURE (6) Anxiety Code(s): F41.9 - ANXIETY DISORDER, UNSPECIFIED (7) Atrial fibrillation Assessment/Plan: On carvedilol, apixaban. Drop in Hb; f/u stool quaiac, Hb. Code(s): I48.91 - UNSPECIFIED ATRIAL FIBRILLATION Qualifiers: Atrial fibrillation type: unspecified Qualified Code(s): I48.91 - Unspecified atrial fibrillation; I48.91 - Unspecified atrial fibrillation; I48.91 - Unspecified atrial fibrillation; I48.91 - Unspecified atrial fibrillation (8) Hypertension Code(s): I10 - ESSENTIAL (PRIMARY) HYPERTENSION (9) Moderate to severe pulmonary hypertension Code(s): I27.2 - OTHER SECONDARY PULMONARY HYPERTENSION * DO NOT USE * (10) NSTEMI (non-ST elevated myocardial infarction) Assessment/Plan: s/p coronary stent after 11/03 RI. Code(s): I21.4 - NON-ST ELEVATION (NSTEMI) MYOCARDIAL INFARCTION
[2017-02-05 08:41] LABS: BASOPHIL 1.2 % (0-2.0); EOSINOPHIL 4.5 % (0-4.5); MCH 28.9 pg (25.7-33.7); MCHC 32.5 g/dl (32.0-36.0); MEAN CELL VOLUME 89.2 fl (80-96); MEAN PLT VOLUME 8.6 fl (7.5-11.1); NEUTROPHILS 64.4 % (42.8-82.8); PLATELET COUNT 145 K/MM3 (134-434); RDW 14.5 % (11.6-15.6)
[2017-02-05 08:55] LABS: ANION GAP 8 (8-16); CO2 26 mmol/L (22-28); CREATININE 1.1 mg/dl (0.6-1.3); GLUCOSE,RANDOM 107 mg/dl (74-106)
[2017-02-05] MEDS: LISINOPRIL 5 MG TABLET (FP) PO SCH (09:43)
[2017-02-05] MEDS: FUROSEMIDE 40 MG TABLET (FP) PO SCH (09:43)
[2017-02-05] MEDS: CARVEDILOL 12.5 MG TABLET (FP) PO SCH ×3 (09:44→22:14)
[2017-02-05] MEDS: POTASSIUM CHLORIDE TABS 20 MEQ TABLET.ER (FP) PO SCH (09:44)
[2017-02-05] MEDS: APIXABAN 2.5 MG TABLET PO SCH (09:44)
[2017-02-05] MEDS: ASPIRIN 81 MG CHEWABLE TABLETS PO SCH (09:45)
[2017-02-05] MEDS: DORZOLAMIDE 2% HCL OPHTHALMIC SOLUTION 10 ML BOTTLE OU SCH ×2 (10:00→22:14)
[2017-02-05] MEDS ORDERED: HEPARIN NA (PORCINE) 5,000 UNITS/ML 1ML VIAL IVPUSH PRN ×2 (10:13)
--- NOTE | 2017-02-05 10:18 | PN ---
Physical Exam: SUBJECTIVE: Patient seen and examined. No chest pain today. Feeling well. OBJECTIVE: Vital Signs - 24 hr 3 02/04/17 02/05/17 02/05/17 23:00 06:00 06:27 Temperature 98.4 F Pulse Rate 80 Respiratory 18 19 19 Rate Blood Pressure 119/64 O2 Sat by Pulse 98 98 98 Oximetry (%) 3 02/05/17 14:23 Temperature 97.6 F Pulse Rate 83 Respiratory 16 Rate Blood Pressure 109/62 O2 Sat by Pulse 98 Oximetry (%) GENERAL: The patient is awake, alert, and fully oriented, in no acute distress. HEAD: Normal with no signs of trauma. EYES: PERRL, extraocular movements intact, sclera anicteric, conjunctiva clear. No ptosis. ENT: Ears normal, nares patent, oropharynx clear without exudates, moist mucous membranes. NECK: Trachea midline, full range of motion, supple. LUNGS: Breath sounds equal, clear to auscultation bilaterally, no wheezes, no crackles, no accessory muscle use. HEART: Irregular rate and rhythm, S1, S2 without murmur, rub or gallop. ABDOMEN: Soft, nontender, nondistended, normoactive bowel sounds, no guarding, no rebound, no hepatosplenomegaly, no masses. EXTREMITIES: 2+ pulses, warm, well-perfused, no edema. NEUROLOGICAL: Cranial nerves II through XII grossly intact. Normal speech, gait not observed. PSYCH: Normal mood, normal affect. SKIN: Warm, dry, normal turgor, no rashes or lesions noted Laboratory Results - last 24 hr 3 02/04/17 02/05/17 02/05/17 07:25 08:00 08:00 WBC 5.0 RBC 3.43 L Hgb 9.9 L Hct 30.6 L MCV 89.2 MCH 28.9 MCHC 32.5 RDW 14.5 Plt Count 145 MPV 8.6 Neutrophils % 64.4 Lymphocytes % 18.2 D Monocytes % 11.7 H Eosinophils % 4.5 Basophils % 1.2 Sodium 132 L 133 L Potassium 4.3 4.4 Chloride 100 99 Carbon Dioxide 24 26 Anion Gap 8 8 BUN 30 H 29 H Creatinine 1.1 1.1 Random Glucose 104 107 H Calcium 9.1 9.0 B-Natriuretic Peptide TSH 0.61 D 3 02/05/17 08:00 WBC RBC Hgb Hct MCV MCH MCHC RDW Plt Count MPV Neutrophils % Lymphocytes % Monocytes % Eosinophils % Basophils % Sodium Potassium Chloride Carbon Dioxide Anion Gap BUN Creatinine Random Glucose Calcium B-Natriuretic Peptide 2735.74 H TSH Active Medications 3 Generic Name Dose Route Start Last Admin Trade Name Freq PRN Reason Stop Dose Admin Albuterol Sulfate 1 amp 02/03/17 07:35 Ventolin 0.5% - NEB Q4H PRN SHORT OF BREATH/WHEEZING Aspirin 81 mg 02/03/17 10:00 02/05/17 09:45 Asa - PO 81 mg DAILY [facility] Administration Atorvastatin Calcium 40 mg 02/03/17 22:00 02/04/17 21:19 Lipitor - PO 40 mg HS [facility] Administration Carvedilol 12.5 mg 02/03/17 10:00 02/05/17 09:44 Coreg - PO 12.5 mg BID [facility] Administration Dorzolamide HCl 1 drop 02/03/17 10:00 02/04/17 21:21 Trusopt 2% OU 1 drop BID [facility] Administration Furosemide 40 mg 02/03/17 10:00 02/05/17 09:43 Lasix - PO 40 mg DAILY [facility] Administration Heparin Sodium (Porcine) 1,000 unit 02/05/17 10:13 Heparin - IVPUSH PRN PRN Heparin Heparin Sodium (Porcine) 5,000 unit 02/05/17 10:13 Heparin - IVPUSH PRN PRN Heparin Heparin Sodium/Dextrose 500 mls @ 16 mls/hr 02/05/17 14:00 Heparin Infusion - IVPB TITR [facility] Protocol 800 UNITS/HR Levothyroxine Sodium 100 mcg 02/03/17 08:45 02/05/17 06:24 Synthroid - PO 100 mcg DAILY@0700 [facility] Administration Lisinopril 5 mg 02/04/17 10:00 02/05/17 09:43 Prinivil PO 5 mg DAILY [facility] Administration Potassium Chloride 20 meq 02/03/17 10:00 02/05/17 09:44 K-Dur - PO 20 meq DAILY [facility] Administration ASSESSMENT/PLAN: 81 year old female with PMHx of A.fib (on Eliquis), HTN, hyperlipidemia, CAD s/ p stent, anemia, who presented to the ED with chest pain. Chest pain/CAD s/p stenting - ACS ruled out, trop x3 negative, no further reports of CP - EKG reviewed - Echo and stress done, discrepancy between findings, EF of 17 and 19% on stress with large area of infarct - DW Dr. Moore who recommends transfer to Tele at [facility]. 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 - received eliquis this am, will change to heparin drip this afternoon. - Continue ASA/Bblocker A.fib - Rate controlled - Eliquis changed to heparin drip HTN - cont lisinopril/carvedilol Hyperlipidemia - Continue Lipitor Endocrine: Hypothyroidism - Continue Synthroid - TSH 0.61 Anemia - Hgb 9.7 today, stable - Continue to monitor F/E/N: - Hyponatremia: continue to monitor, change to regular diet - regular diet Prophylaxis: - On Heparin drip, monitor PTT as per protocol Dispo: Transfer to [facility] Tele unit Visit type - Emergency Visit Emergency Visit: Yes ED Registration Date: 02/02/17 Care time: The patient presented to the Emergency Department on the above date and was hospitalized for further evaluation of their emergent condition. - New Patient This patient is new to me today: No - Critical Care Critical Care patient: No - Discharge Referral Referred to [facility] No
--- NOTE | 2017-02-05 11:43 | PN ---
Progress Note, Physician History of Present Illness: This is a 81 y/o woman with a past medical history of HTN, CAD, [place], Afib. Who presents to the ED with intermittent left sided chest pain x 3 days. Patient reports the quality as dull achy to sharp radiating to her RCW. Patient reports that the pain increases with movement. Patient reports recent increase in her diuretic for lower extremity edema per her PCP. Patient denies fever, chills, cough, dizziness, AP, N/V/D, constipation,melena hematochezia, hematuria, dysuria. ER course was notable for: (1) Trop I - neg x1 (2) EKG- Afib 88 bpm (3) Chest Xray- image Cardiomegaly, bilateral interstitial changes NSTEMI: (coronary angiogram 10/20/2015: triple vessel disease : Lt Main: 40%; LAD proximal 40%, mid 70%, distal 50%; LCx ostial 80%, proximal 60%, mid 95%, OM2 60 %; Ramus intermedius 70%; RCA proximal 40%, mid 95% hazy lesion, distal 60%; reduced LVEF, with apical akinesis and mid-inferior wall severe hypokinesis); PAD (bilateral SFA 30%) systolic CHF (mild LV dysfunction on 02/2016 ECHO; severe MR) Severe pulmonary HTN Chronic low back pain Hyperlipidemia Hypertension Hypothyroidism PAD scoliosis - Current Medication List Current Medications: Active Medications Albuterol Sulfate (Ventolin 0.5% -) 1 amp NEB Q4H PRN PRN Reason: SHORT OF BREATH/WHEEZING Aspirin (Asa -) 81 mg PO DAILY [facility] Last Admin: 02/05/17 09:45 Dose: 81 mg Atorvastatin Calcium (Lipitor -) 40 mg PO HS [facility] Last Admin: 02/04/17 21:19 Dose: 40 mg Carvedilol (Coreg -) 12.5 mg PO BID [facility] Last Admin: 02/05/17 09:44 Dose: 12.5 mg Dorzolamide HCl (Trusopt 2%) 1 drop OU BID [facility] Last Admin: 02/04/17 21:21 Dose: 1 drop Furosemide (Lasix -) 40 mg PO DAILY [facility] Last Admin: 02/05/17 09:43 Dose: 40 mg Heparin Sodium (Porcine) (Heparin -) 1,000 unit IVPUSH PRN PRN PRN Reason: Heparin Heparin Sodium (Porcine) (Heparin -) 5,000 unit IVPUSH PRN PRN PRN Reason: Heparin Heparin Sodium/Dextrose (Heparin Infusion -) 500 mls @ 16 mls/hr IVPB TITR [facility] ; 800 UNITS/HR PRN Reason: Protocol Levothyroxine Sodium (Synthroid -) 100 mcg PO DAILY@0700 [facility] Last Admin: 02/05/17 06:24 Dose: 100 mcg Lisinopril (Prinivil) 5 mg PO DAILY [facility] Last Admin: 02/05/17 09:43 Dose: 5 mg Potassium Chloride (K-Dur -) 20 meq PO DAILY [facility] Last Admin: 02/05/17 09:44 Dose: 20 meq - Objective Vital Signs: Vital Signs Temperature 98.4 F 02/05/17 06:00 Pulse Rate 80 02/05/17 06:00 Respiratory Rate 19 02/05/17 06:27 Blood Pressure 119/64 02/05/17 06:00 O2 Sat by Pulse Oximetry (%) 98 02/05/17 06:27 Eyes: Yes: WNL, Conjunctiva Clear, EOM Intact HENT: Yes: WNL, Atraumatic, Normocephalic Neck: Yes: WNL, Supple, Trachea Midline Cardiovascular: Yes: Pulse Irregular, S1, S2 Respiratory: Yes: WNL, Regular, CTA Bilaterally Gastrointestinal: Yes: WNL, Normal Bowel Sounds Genitourinary: Yes: WNL Musculoskeletal: Yes: WNL Extremities: Yes: WNL Edema: No Integumentary: Yes: WNL Neurological: Yes: WNL, Alert, Oriented ...Motor Strength: WNL Psychiatric: Yes: WNL Labs: CBC, BMP 02/05/17 08:00 02/05/17 08:00 Problem List - Problems (1) Anemia Code(s): D64.9 - ANEMIA, UNSPECIFIED Qualifiers: Anemia type: unspecified type Qualified Code(s): D64.9 - Anemia, unspecified; D64.9 - Anemia, unspecified (2) Chest pain Code(s): R07.9 - CHEST PAIN, UNSPECIFIED Qualifiers: Chest pain type: unspecified Qualified Code(s): R07.9 - Chest pain, unspecified; R07.9 - Chest pain, unspecified (3) Hyponatremia Code(s): E87.1 - HYPO-OSMOLALITY AND HYPONATREMIA (4) ASHD (arteriosclerotic heart disease) Code(s): I25.10 - ATHSCL HEART DISEASE OF [place] CORONARY ARTERY W/O ANG PCTRS (5) Acute on chronic systolic (congestive) heart failure Code(s): I50.23 - ACUTE ON CHRONIC SYSTOLIC (CONGESTIVE) HEART FAILURE (6) Ankle pain, left Code(s): M25.572 - PAIN IN LEFT ANKLE AND JOINTS OF LEFT FOOT (7) Anxiety Code(s): F41.9 - ANXIETY DISORDER, UNSPECIFIED (8) Atrial fibrillation Code(s): I48.91 - UNSPECIFIED ATRIAL FIBRILLATION Qualifiers: Atrial fibrillation type: unspecified Qualified Code(s): I48.91 - Unspecified atrial fibrillation; I48.91 - Unspecified atrial fibrillation; I48.91 - Unspecified atrial fibrillation; I48.91 - Unspecified atrial fibrillation (9) COPD (chronic obstructive pulmonary disease) Code(s): J44.9 - CHRONIC OBSTRUCTIVE PULMONARY DISEASE, UNSPECIFIED (10) COPD exacerbation Code(s): J44.1 - CHRONIC OBSTRUCTIVE PULMONARY DISEASE W (ACUTE) EXACERBATION (11) COPD mixed type Code(s): J44.9 - CHRONIC OBSTRUCTIVE PULMONARY DISEASE, UNSPECIFIED (12) Community acquired pneumonia Code(s): J18.9 - PNEUMONIA, UNSPECIFIED ORGANISM (13) DVT prophylaxis Code(s): [id number] - (14) Elevated glucose Code(s): R73.09 - OTHER ABNORMAL GLUCOSE (15) Elevated lactic acid level Code(s): E87.2 - ACIDOSIS (16) Elevated troponin Code(s): R79.89 - OTHER SPECIFIED ABNORMAL FINDINGS OF BLOOD CHEMISTRY (17) Elevated troponin I level Code(s): R79.89 - OTHER SPECIFIED ABNORMAL FINDINGS OF BLOOD CHEMISTRY (18) [place] cardiac risk >20% in next 10 years Code(s): Z91.89 - OTH PERSONAL RISK FACTORS, NOT ELSEWHERE CLASSIFIED (19) Hypertension Code(s): I10 - ESSENTIAL (PRIMARY) HYPERTENSION (20) Lactic acid acidosis Code(s): E87.2 - ACIDOSIS (21) Moderate to severe pulmonary hypertension Code(s): I27.2 - OTHER SECONDARY PULMONARY HYPERTENSION * DO NOT USE * (22) NSTEMI (non-ST elevated myocardial infarction) Code(s): I21.4 - NON-ST ELEVATION (NSTEMI) MYOCARDIAL INFARCTION (23) Plantar fasciitis Code(s): M72.2 - PLANTAR FASCIAL FIBROMATOSIS (24) Pneumonia Code(s): J18.9 - PNEUMONIA, UNSPECIFIED ORGANISM (25) Respiratory distress Code(s): R06.00 - DYSPNEA, UNSPECIFIED (26) Respiratory failure Code(s): J96.90 - RESPIRATORY FAILURE, UNSP, UNSP W HYPOXIA OR HYPERCAPNIA (27) Sepsis Code(s): A41.9 - SEPSIS, UNSPECIFIED ORGANISM (28) Sepsis due to pneumonia Code(s): J18.9 - PNEUMONIA, UNSPECIFIED ORGANISM A41.9 - SEPSIS, UNSPECIFIED ORGANISM Assessment/Plan - Problems (1) Anemia Assessment/Plan: decrease in Hb since recent admission On apixaban (AF) and ASA (CAD) Check stool quaiac; orthostatic vital signs; Hb. Code(s): D64.9 - ANEMIA, UNSPECIFIED Qualifiers: Anemia type: unspecified type Qualified Code(s): D64.9 - Anemia, unspecified; D64.9 - Anemia, unspecified (2) Chest pain Assessment/Plan: TNI 0.02-->0.03 No acute STT changes on EKG LDL cholesterol 51; HDL 57. Persantine stress MIBI.significantly abnormal. severely reduced ef old mi and multiple areas of ischemia. will d/w the patient possibility of c. cath. May need MUGA before to reevaluate ef. Discrepancy between MIBI ST EF and ECHO may need ac to be switched to IV Heparine if agrees for c. cath. Recommend transfer to [facility] since patient is high risk for cardiovascular risks. Awaiting transfer. D/w [employer] Vera Aguilar at 9 AM today. Code(s): R07.9 - CHEST PAIN, UNSPECIFIED Qualifiers: Chest pain type: unspecified Qualified Code(s): R07.9 - Chest pain, unspecified; R07.9 - Chest pain, unspecified (3) Hyponatremia Code(s): E87.1 - HYPO-OSMOLALITY AND HYPONATREMIA (4) ASHD (arteriosclerotic heart disease) Code(s): I25.10 - ATHSCL HEART DISEASE OF [place] CORONARY ARTERY W/O ANG PCTRS (5) Acute on chronic systolic (congestive) heart failure Assessment/Plan: on carvedilol, lisinopril, furosemide (slight improvement in Na, though remains low), KCl. Consider spironolactone. Code(s): I50.23 - ACUTE ON CHRONIC SYSTOLIC (CONGESTIVE) HEART FAILURE (6) Anxiety Code(s): F41.9 - ANXIETY DISORDER, UNSPECIFIED (7) Atrial fibrillation Assessment/Plan: On carvedilol, apixaban. Drop in Hb; f/u stool quaiac, Hb. Code(s): I48.91 - UNSPECIFIED ATRIAL FIBRILLATION Qualifiers: Atrial fibrillation type: unspecified Qualified Code(s): I48.91 - Unspecified atrial fibrillation; I48.91 - Unspecified atrial fibrillation; I48.91 - Unspecified atrial fibrillation; I48.91 - Unspecified atrial fibrillation (8) Hypertension Code(s): I10 - ESSENTIAL (PRIMARY) HYPERTENSION (9) Moderate to severe pulmonary hypertension Code(s): I27.2 - OTHER SECONDARY PULMONARY HYPERTENSION * DO NOT USE * (10) NSTEMI (non-ST elevated myocardial infarction) Assessment/Plan: s/p coronary stent after 11/03 [place]. Code(s): I21.4 - NON-ST ELEVATION (NSTEMI) MYOCARDIAL INFARCTION
[2017-02-05] MEDS: HEPARIN INFUSION - 500 ML IVPB SCH (15:00)
[2017-02-05] MEDS: ATORVASTATIN CA 40 MG TABLET (FP) PO SCH (22:14)
[2017-02-06] MEDS: LEVOTHYROXINE NA 100 MCG TABLET (FP) PO SCH (06:28)
[2017-02-06] MEDS: LISINOPRIL 5 MG TABLET (FP) PO SCH (09:32)
[2017-02-06] MEDS: ASPIRIN 81 MG CHEWABLE TABLETS PO SCH (09:32)
[2017-02-06] MEDS: FUROSEMIDE 40 MG TABLET (FP) PO SCH (09:32)
[2017-02-06] MEDS: CARVEDILOL 12.5 MG TABLET (FP) PO SCH ×2 (09:33→21:47)
[2017-02-06] MEDS: POTASSIUM CHLORIDE TABS 20 MEQ TABLET.ER (FP) PO SCH (09:33)
[2017-02-06] MEDS: DORZOLAMIDE 2% HCL OPHTHALMIC SOLUTION 10 ML BOTTLE OU SCH ×2 (09:34→21:47)
[2017-02-06] MEDS: HEPARIN INFUSION - 500 ML IVPB SCH ×2 (09:49→18:15)
--- NOTE | 2017-02-06 10:27 | PN ---
Progress Note, Physician Chief Complaint: Pt is A&Ox3; anxious (and has stress-related episodes of chest discomfort). Plans on making a will "just in case". History of Present Illness: The patient is a 81 year old white woman, with a significant past medical history of COPD, atrial fibrillation, coronary artery disease, with [place] 10/2015-- >coronary stent 10/27/2015, hypertension, hypercholesterolemia, hypothyroidism, hyperlipidemia, systolic CHF (ECHO 09/2016: LVEF 40-45%, severe MR, moderate TR , moderate pulmonary hypertension), who presents to the emergency department c/ o left sided non-pleuritic chest pain that began approx. 3 days ago. The patient describes the chest pain as a sharp (sometime dull) pain that occurs with movement and last for approx. 1-2 seconds. The patient reports shortness of breath secondary to the chest pain. She denies diaphoresis, lightheadedness or dizziness. She denies recent nausea, vomiting, fever or chills. - Current Medication List Current Medications: Active Medications Albuterol Sulfate (Ventolin 0.5% -) 1 amp NEB Q4H PRN PRN Reason: SHORT OF BREATH/WHEEZING Aspirin (Asa -) 81 mg PO DAILY [facility] Last Admin: 02/06/17 09:32 Dose: 81 mg Atorvastatin Calcium (Lipitor -) 40 mg PO HS [facility] Last Admin: 02/05/17 22:14 Dose: 40 mg Carvedilol (Coreg -) 12.5 mg PO BID [facility] Last Admin: 02/06/17 09:33 Dose: 12.5 mg Dorzolamide HCl (Trusopt 2%) 1 drop OU BID [facility] Last Admin: 02/06/17 09:34 Dose: 1 drop Furosemide (Lasix -) 40 mg PO DAILY [facility] Last Admin: 02/06/17 09:32 Dose: 40 mg Heparin Sodium (Porcine) (Heparin -) 1,000 unit IVPUSH PRN PRN PRN Reason: Heparin Heparin Sodium (Porcine) (Heparin -) 5,000 unit IVPUSH PRN PRN PRN Reason: Heparin Heparin Sodium/Dextrose (Heparin Infusion -) 500 mls @ 16 mls/hr IVPB TITR [facility] ; 800 UNITS/HR PRN Reason: Protocol Last Admin: 02/06/17 09:49 Dose: 14 mls/hr Levothyroxine Sodium (Synthroid -) 100 mcg PO DAILY@0700 [facility] Last Admin: 02/06/17 06:28 Dose: 100 mcg Lisinopril (Prinivil) 5 mg PO DAILY [facility] Last Admin: 02/06/17 09:32 Dose: 5 mg Potassium Chloride (K-Dur -) 20 meq PO DAILY [facility] Last Admin: 02/06/17 09:33 Dose: 20 meq - Objective Vital Signs: Vital Signs Temperature 97.8 F 02/06/17 06:10 Pulse Rate 75 02/06/17 06:10 Respiratory Rate 18 02/06/17 06:10 Blood Pressure 132/70 02/06/17 06:10 O2 Sat by Pulse Oximetry (%) 98 02/05/17 21:00 Constitutional: Yes: Anxious Eyes: Yes: WNL HENT: Yes: WNL Neck: Yes: WNL Cardiovascular: Yes: Pulse Irregular, S1 (varies in intensity) Respiratory: Yes: Regular, Diminished Gastrointestinal: Yes: Soft ...Rectal Exam: Yes: Deferred Genitourinary: No: Anuria Breast(s): Yes: WNL Musculoskeletal: Yes: Muscle Weakness Extremities: Yes: Cool Edema: No Peripheral Pulses WNL: No Peripheral Pulses: Left Doralis Pedis: 1+, Right Dorsalis Pedis: 1+ Integumentary: Yes: WNL Neurological: Yes: Alert, Oriented, Weakness Psychiatric: Yes: WNL Problem List - Problems (1) Anemia Assessment/Plan: decrease in Hb since recent admission On apixaban--held pending likely coronary angiogram; now on IV heparin (AF) and ASA (CAD) Check stool quaiac; orthostatic vital signs; Hb. Code(s): D64.9 - ANEMIA, UNSPECIFIED Qualifiers: Anemia type: unspecified type Qualified Code(s): D64.9 - Anemia, unspecified; D64.9 - Anemia, unspecified (2) Chest pain Assessment/Plan: Stress Persantine MIBI: Areas of aravind-infarct ischemia (inferior and anterio); severely reduced LVEF. For MUGA scan. Code(s): R07.9 - CHEST PAIN, UNSPECIFIED Qualifiers: Chest pain type: unspecified Qualified Code(s): R07.9 - Chest pain, unspecified; R07.9 - Chest pain, unspecified (3) Hyponatremia Code(s): E87.1 - HYPO-OSMOLALITY AND HYPONATREMIA (4) ASHD (arteriosclerotic heart disease) Code(s): I25.10 - ATHSCL HEART DISEASE OF [place] CORONARY ARTERY W/O ANG PCTRS (5) Acute on chronic systolic (congestive) heart failure Assessment/Plan: on carvedilol, lisinopril, furosemide (slight improvement in Na, though remains low), KCl. Consider spironolactone. Await MUGA for LVEF. Code(s): I50.23 - ACUTE ON CHRONIC SYSTOLIC (CONGESTIVE) HEART FAILURE (6) Anxiety Code(s): F41.9 - ANXIETY DISORDER, UNSPECIFIED (7) Atrial fibrillation Code(s): I48.91 - UNSPECIFIED ATRIAL FIBRILLATION Qualifiers: Atrial fibrillation type: unspecified Qualified Code(s): I48.91 - Unspecified atrial fibrillation; I48.91 - Unspecified atrial fibrillation; I48.91 - Unspecified atrial fibrillation; I48.91 - Unspecified atrial fibrillation (8) Hypertension Code(s): I10 - ESSENTIAL (PRIMARY) HYPERTENSION (9) Moderate to severe pulmonary hypertension Code(s): I27.2 - OTHER SECONDARY PULMONARY HYPERTENSION * DO NOT USE * (10) NSTEMI (non-ST elevated myocardial infarction) Code(s): I21.4 - NON-ST ELEVATION (NSTEMI) MYOCARDIAL INFARCTION
--- NOTE | 2017-02-06 16:33 | DS ---
Physical Examination Vital Signs: Vital Signs Temperature 97.4 F L 02/06/17 14:00 Pulse Rate 92 H 02/06/17 14:00 Respiratory Rate 20 02/06/17 10:00 Blood Pressure 115/59 02/06/17 14:00 O2 Sat by Pulse Oximetry (%) 98 02/06/17 09:00 Discharge Summary Reason For Visit: CHEST PAIN Current Active Problems Anemia (Acute) Chest pain (Acute) Hyponatremia (Acute) Hospital Course: Discussed with Dr. Jiménez who has set up transfer for the patient for cardiac cath to [facility] under Dr. Moore Condition: Stable - Instructions Referrals: Kirsty Hodges MD [Primary Care Provider] - - Home Medications Comprehensive Discharge Medication List: Ambulatory Orders Travoprost (Benzalkonium) [Travatan 0.004% Eye Drop] 1 gtt OD HS 05/29/11 Levothyroxine [Synthroid -] 100 mcg PO DAILY 03/19/15 Potassium Chloride [Klor-Con M20] 20 meq PO ASDIR 03/19/15 Dorzolamide HCl [Trusopt] 10 ml OD BID 10/15/15 Apixaban [Eliquis] 2.5 mg PO BID 10/11/16 Aspirin [ASA -] 81 mg PO DAILY 10/11/16 Atorvastatin Ca [Lipitor] 40 mg PO HS 10/11/16 Lisinopril 5 mg PO DAILY 10/11/16 Carvedilol [Coreg -] 12.5 mg PO BID #60 tablet 10/12/16 Furosemide [Lasix] 40 mg PO DAILY #30 tablet 10/12/16 Albuterol Sulfate Inhaler - [Ventolin Hfa Inhaler -] 1 - 2 inh PO PRN PRN - Discharge Referral Referred to [facility] Med P.C.: No
[2017-02-06] MEDS: ATORVASTATIN CA 40 MG TABLET (FP) PO SCH (21:47)
[2017-02-07] MEDS: LEVOTHYROXINE NA 100 MCG TABLET (FP) PO SCH (06:12)
[2017-02-07 08:04] LABS: MEAN CELL VOLUME 87.8 fl (80-96); MEAN PLT VOLUME 8.4 fl (7.5-11.1); PLATELET COUNT 130 K/MM3 (134-434); RDW 15.5 % (11.6-15.6); WHITE BLOOD COUNT 5.2 K/mm3 (4.0-10.0)
[2017-02-07] MEDS: HEPARIN INFUSION - 500 ML IVPB SCH (08:42)
--- NOTE | 2017-02-07 08:50 | PN ---
Progress Note, Physician Chief Complaint: Pt is A&Ox3; calm today. No chest pain or dyspnea. History of Present Illness: The patient is a 81 year old white woman, with a significant past medical history of COPD, atrial fibrillation, coronary artery disease, with [place] 10/2015-- >coronary stent 10/27/2015, hypertension, hypercholesterolemia, hypothyroidism, hyperlipidemia, systolic CHF (ECHO 09/2016: LVEF 40-45%, severe MR, moderate TR , moderate pulmonary hypertension), who presents to the emergency department c/ o left sided non-pleuritic chest pain that began approx. 3 days ago. The patient describes the chest pain as a sharp (sometime dull) pain that occurs with movement and last for approx. 1-2 seconds. The patient reports shortness of breath secondary to the chest pain. She denies diaphoresis, lightheadedness or dizziness. She denies recent nausea, vomiting, fever or chills. - Current Medication List Current Medications: Active Medications Albuterol Sulfate (Ventolin 0.5% -) 1 amp NEB Q4H PRN PRN Reason: SHORT OF BREATH/WHEEZING Aspirin (Asa -) 81 mg PO DAILY [facility] Last Admin: 02/06/17 09:32 Dose: 81 mg Atorvastatin Calcium (Lipitor -) 40 mg PO HS [facility] Last Admin: 02/06/17 21:47 Dose: 40 mg Carvedilol (Coreg -) 12.5 mg PO BID [facility] Last Admin: 02/06/17 21:47 Dose: 12.5 mg Dorzolamide HCl (Trusopt 2%) 1 drop OU BID [facility] Last Admin: 02/06/17 21:47 Dose: 1 drop Furosemide (Lasix -) 40 mg PO DAILY [facility] Last Admin: 02/06/17 09:32 Dose: 40 mg Heparin Sodium (Porcine) (Heparin -) 1,000 unit IVPUSH PRN PRN PRN Reason: Heparin Heparin Sodium (Porcine) (Heparin -) 5,000 unit IVPUSH PRN PRN PRN Reason: Heparin Heparin Sodium/Dextrose (Heparin Infusion -) 500 mls @ 16 mls/hr IVPB TITR [facility] ; 800 UNITS/HR PRN Reason: Protocol Last Admin: 02/07/17 08:42 Dose: 13 mls/hr Levothyroxine Sodium (Synthroid -) 100 mcg PO DAILY@0700 [facility] Last Admin: 02/07/17 06:12 Dose: 100 mcg Lisinopril (Prinivil) 5 mg PO DAILY [facility] Last Admin: 02/06/17 09:32 Dose: 5 mg Potassium Chloride (K-Dur -) 20 meq PO DAILY [facility] Last Admin: 02/06/17 09:33 Dose: 20 meq - Objective Vital Signs: Vital Signs Temperature 98.1 F 02/07/17 05:00 Pulse Rate 84 02/07/17 05:00 Respiratory Rate 20 02/07/17 05:00 Blood Pressure 111/62 02/07/17 05:00 O2 Sat by Pulse Oximetry (%) 98 02/06/17 21:00 Constitutional: Yes: No Distress Eyes: Yes: WNL HENT: Yes: WNL Neck: Yes: WNL Cardiovascular: Yes: Pulse Irregular Respiratory: Yes: Regular Gastrointestinal: Yes: Soft ...Rectal Exam: Yes: Deferred Genitourinary: No: Anuria Breast(s): Yes: WNL Musculoskeletal: Yes: Muscle Weakness Edema: No Peripheral Pulses WNL: No Peripheral Pulses: Left Doralis Pedis: 1+, Right Dorsalis Pedis: 1+ Integumentary: Yes: WNL Neurological: Yes: Alert, Oriented, Weakness Psychiatric: Yes: WNL Labs: CBC, BMP 02/07/17 06:45 Current Medications Albuterol Sulfate (Ventolin 0.5% -) 1 amp NEB Q4H PRN PRN Reason: SHORT OF BREATH/WHEEZING Aspirin (Asa -) 81 mg PO DAILY [facility] Last Admin: 02/06/17 09:32 Dose: 81 mg Atorvastatin Calcium (Lipitor -) 40 mg PO HS [facility] Last Admin: 02/06/17 21:47 Dose: 40 mg Carvedilol (Coreg -) 12.5 mg PO BID [facility] Last Admin: 02/06/17 21:47 Dose: 12.5 mg Dorzolamide HCl (Trusopt 2%) 1 drop OU BID [facility] Last Admin: 02/06/17 21:47 Dose: 1 drop Furosemide (Lasix -) 40 mg PO DAILY [facility] Last Admin: 02/06/17 09:32 Dose: 40 mg Heparin Sodium (Porcine) (Heparin -) 1,000 unit IVPUSH PRN PRN PRN Reason: Heparin Heparin Sodium (Porcine) (Heparin -) 5,000 unit IVPUSH PRN PRN PRN Reason: Heparin Heparin Sodium/Dextrose (Heparin Infusion -) 500 mls @ 16 mls/hr IVPB TITR [facility] ; 800 UNITS/HR PRN Reason: Protocol Last Admin: 02/07/17 08:42 Dose: 13 mls/hr Levothyroxine Sodium (Synthroid -) 100 mcg PO DAILY@0700 [facility] Last Admin: 02/07/17 06:12 Dose: 100 mcg Lisinopril (Prinivil) 5 mg PO DAILY [facility] Last Admin: 02/06/17 09:32 Dose: 5 mg Potassium Chloride (K-Dur -) 20 meq PO DAILY [facility] Last Admin: 02/06/17 09:33 Dose: 20 meq Problem List - Problems (1) Anemia Assessment/Plan: decrease in Hb since recent admission On apixaban--held pending likely coronary angiogram; now on IV heparin (AF) and ASA (CAD) Check stool quaiac; orthostatic vital signs; Hb. Code(s): D64.9 - ANEMIA, UNSPECIFIED Qualifiers: Anemia type: unspecified type Qualified Code(s): D64.9 - Anemia, unspecified; D64.9 - Anemia, unspecified (2) Chest pain Assessment/Plan: Stress Persantine MIBI: Areas of aravind-infarct ischemia (inferior and anterio); severely reduced LVEF. MUGA: 36% LVEF; global hypokinesis. For coronary angiogram. Code(s): R07.9 - CHEST PAIN, UNSPECIFIED Qualifiers: Chest pain type: unspecified Qualified Code(s): R07.9 - Chest pain, unspecified; R07.9 - Chest pain, unspecified (3) Hyponatremia Code(s): E87.1 - HYPO-OSMOLALITY AND HYPONATREMIA (4) ASHD (arteriosclerotic heart disease) Code(s): I25.10 - ATHSCL HEART DISEASE OF [place] CORONARY ARTERY W/O ANG PCTRS (5) Acute on chronic systolic (congestive) heart failure Assessment/Plan: on carvedilol, lisinopril, furosemide (slight improvement in Na, though remains low), KCl. Consider spironolactone. LVEF 3^%, with global hypokinesis by MUGA. Code(s): I50.23 - ACUTE ON CHRONIC SYSTOLIC (CONGESTIVE) HEART FAILURE (6) Anxiety Code(s): F41.9 - ANXIETY DISORDER, UNSPECIFIED (7) Atrial fibrillation Assessment/Plan: On carvedilol, apixaban. Drop in Hb; f/u stool quaiac, Hb. Code(s): I48.91 - UNSPECIFIED ATRIAL FIBRILLATION Qualifiers: Atrial fibrillation type: unspecified Qualified Code(s): I48.91 - Unspecified atrial fibrillation; I48.91 - Unspecified atrial fibrillation; I48.91 - Unspecified atrial fibrillation; I48.91 - Unspecified atrial fibrillation (8) Hypertension Code(s): I10 - ESSENTIAL (PRIMARY) HYPERTENSION (9) Moderate to severe pulmonary hypertension Code(s): I27.2 - OTHER SECONDARY PULMONARY HYPERTENSION * DO NOT USE * (10) NSTEMI (non-ST elevated myocardial infarction) Assessment/Plan: s/p coronary stent after 11/03 [place]. For coronary angiogram today (+ stress MIBI this admission). Code(s): I21.4 - NON-ST ELEVATION (NSTEMI) MYOCARDIAL INFARCTION
[2017-02-07] MEDS: LISINOPRIL 5 MG TABLET (FP) PO SCH (08:59)
[2017-02-07] MEDS: CARVEDILOL 12.5 MG TABLET (FP) PO SCH (08:59)
[2017-02-07] MEDS: POTASSIUM CHLORIDE TABS 20 MEQ TABLET.ER (FP) PO SCH (08:59)
[2017-02-07] MEDS: ASPIRIN 81 MG CHEWABLE TABLETS PO SCH (08:59)
[2017-02-07] MEDS: DORZOLAMIDE 2% HCL OPHTHALMIC SOLUTION 10 ML BOTTLE OU SCH (08:59)
[2017-02-07] MEDS: FUROSEMIDE 40 MG TABLET (FP) PO SCH (09:00)
[2017-02-07 09:52] VITALS: BP 166/84; PULSE 74; TEMP 98.7
== END 2017-02-07 09:45 | disposition short-term general hospital (02) | DRG 303 ==
LOC: FER 19:45 → INTOOBSV 23:06 → UNDOADMOB 23:06 → OBSVTOIN 23:06 → FM/S 23:06 → OBSVTOIN 02-05 17:32 → FM/S 02-05 17:32 → J4W 02-05 21:04
PROVIDERS: ADMIT Internal Medicine; ATTEND Registered Nurse
DX: I25.10 Atherosclerotic heart disease of native coronary artery without angina pectoris (principal); I50.22 Chronic systolic (congestive) heart failure; E87.1 Hypo-osmolality and hyponatremia; R07.89 Other chest pain; J44.9 Chronic obstructive pulmonary disease, unspecified; K21.9 Gastro-esophageal reflux disease without esophagitis; I11.0 Hypertensive heart disease with heart failure; E78.5 Hyperlipidemia, unspecified; E03.8 Other specified hypothyroidism; I27.20 Pulmonary hypertension, unspecified; D64.9 Anemia, unspecified; I25.2 Old myocardial infarction; F41.8 Other specified anxiety disorders; I08.1 Rheumatic disorders of both mitral and tricuspid valves; Z87.891 Personal history of nicotine dependence
CPT/HCPCS: 36415; 71010-TC; 78452-TC; 78472-TC; 80048; 80053; 80061; 81003; 82272; 82550; 83735; 83880; 84100; 84443; 84484; 85025; 85027; 85730; 93005; 93017; 93306-TC; 99284-25; A9502; A9538; J1644

== ENCOUNTER 2017-04-07 11:17 | Inpatient (IN) | payer BC, OTHER ==
--- NOTE | 2017-04-07 11:35 | PDOC ---
History of Present Illness - General Stated Complaint: DIFFICULTY BREATHING Time Seen by Provider: 04/07/17 11:22 - History of Present Illness Initial Comments: 04/07/17 12:17 The patient is an 82 year old female with a history of afib, COPD, CHF, HTN, HLD , CAD who presents for evaluation of generalized weakness and shortness of breath. The patient reports a several day history of generalized weakness with associated shortness of breath at rest worse with exertion. She noted some dizziness and worsening symptoms earlier this morning prompting her presentation to the ED for evaluation. She notes that she has been constipated over the past few days, but noted some dark black stools yesterday evening. She states that she has had similar symptoms in the past. She denies any headache, cough, fevers, chest pain, abdominal pain, nausea, vomiting, or changes with urination. She notes that she has been very cold over the past few days. She denies any recent weight gain or leg swelling. Past History - Past Medical History Allergies/Adverse Reactions: Allergies Allergy/AdvReac Type Severity Reaction Status Date / Time cephalexin [Cephalexin] Allergy Intermediate Rash Verified 04/07/17 11:44 clindamycin Allergy Intermediate Rash Verified 04/07/17 11:44 naproxen [From Naprosyn] Allergy Intermediate ANKLES Verified 04/07/17 11:44 SWELLED UP Penicillins Allergy Intermediate Rash Verified 04/07/17 11:44 diphenhydramine HCl AdvReac CAN'T Verified 04/07/17 11:44 [From Benadryl] HAVE,HAS GLAUCOMA Home Medications: Ambulatory Orders Travoprost (Benzalkonium) [Travatan 0.004% Eye Drop] 1 gtt OD HS 05/29/11 Levothyroxine [Synthroid -] 100 mcg PO DAILY 03/19/15 Potassium Chloride [Klor-Con M20] 20 meq PO ASDIR 03/19/15 Dorzolamide HCl [Trusopt] 10 ml OD BID 10/15/15 Apixaban [Eliquis] 2.5 mg PO BID 10/11/16 Aspirin [ASA -] 81 mg PO DAILY 10/11/16 Atorvastatin Ca [Lipitor] 40 mg PO HS 10/11/16 Lisinopril 5 mg PO DAILY 10/11/16 Carvedilol [Coreg -] 12.5 mg PO BID #60 tablet 10/12/16 Furosemide [Lasix] 40 mg PO DAILY #30 tablet 10/12/16 Albuterol Sulfate Inhaler - [Ventolin Hfa Inhaler -] 1 - 2 inh PO PRN PRN Anemia: No Asthma: No Cancer: No Cardiac Disorders: Yes CVA: No COPD: No CHF: No Dementia: No Diabetes: No GI Disorders: Yes (GERD) Disorders: No HTN: Yes Hypercholesterolemia: Yes Liver Disease: No Seizures: No Thyroid Disease: Yes () - Surgical History Abdominal Surgery: No Appendectomy: No Cardiac Surgery: Yes (STENT 10/27/15) Cholecystectomy: No Lung Surgery: No Neurologic Surgery: No Orthopedic Surgery: No - Suicide/Smoking/Psychosocial Hx Smoking History: Former smoker Have you smoked in the past 12 months: No Number of Cigarettes Smoked Daily: 40 If you are a former smoker, when did you quit?: 23 YEARS AGO Hx Alcohol Use: No Drug/Substance Use Hx: No Substance Use Type: None Hx Substance Use Treatment: No Review of Systems - Review of Systems Comments:: 04/07/17 12:22 Constitutional: Chills, Fatigue. No fevers, malaise HEENT: No Rhinorrhea, nasal congestion, visual changes Cardiovascular: No chest pain, syncope, palpitations, lightheadedness Respiratory: SOB. No Cough, Hemoptysis, Gastrointestinal: Constipation, Melena. No Abdominal pain, Nausea, Vomiting, Diarrhea, Genitourinary: No Dysuria, Frequency, Urgency, Hesitancy, Hematuria, Flank pain Musculoskeletal: No Myalgia, arthralgia Skin: No rashes, bruising, Neurologic: No Headache, Dizziness, Numbness, or Tingling Psychiatric: No Hallucinations. No SI or HI *Physical Exam - Physical Exam Comments: 04/07/17 12:23 General Appearance: Nourished. Pallor noted on exam. No Apparent Distress HEENT: EOMI, RAUL. No Pharyngeal Erythema, Tonsillar Exudate, Tonsillar Erythema Neck: No Cervical Lymphadenopathy Respiratory/Chest: Lungs Clear, Normal Breath Sounds. No Crackles, Rales, Rhonchi, Wheezing Cardiovascular: Regular Rhythm, Regular Rate. No JVD, Murmur, Gallops, Rubs Gastrointestinal/Abdominal: Normal Bowel Sounds, Soft. Mild epigastric tenderness to palpation. Mild LLQ tenderness to deep palpation. No Guarding, Rebound, Musculoskeletal: No CVA Tenderness Extremity: Normal Capillary Refill Integumentary: Pale, Dry, Cold extremities. Neurologic: Fully Oriented, Alert, Normal Mood/Affect, Normal Response, ED Treatment Course - LABORATORY CBC & Chemistry Diagram: 04/07/17 12:15 04/07/17 12:15 Medical Decision Making - Medical Decision Making 04/07/17 12:25 The patient is an 82 year old female with a history of afib, COPD, CHF, HTN, HLD , CAD who presents for evaluation of generalized weakness and shortness of breath. Differential includes but is not limited to: Sepsis, Diverticulitis, GI Bleed, UTI, COPD exacerbation, pneumonia, CHF exacerbation, infections, metabolic derangement. Given the patient's pallor on exam as well as weakness with SOB, we are concerned for a GI bleed and anemia contributing to her symptoms. However it is also possible the patient is septic given her hypotension here in the ED with her temperature of 96.7. We will obtain a cbc, cmp, troponin, bnp, ua, type and screen, stool guiac, chest plain film, ekg, and blood cultures to evaluation for the etiology of her symptoms. We will give the patient a dose of vanc and ceftriaxone here in the ED as well as an iv fluid bolus. We will treat her with a protonix bolus and drip as well for a possible gi bleed. We will continue to monitor and reassess. 04/07/17 13:00 CBC demonstrates a hemoglobin of 4.5. CMP demonstrates a potassium of 5.4, creatinine of 2.5. UA is negative. Stool guiac is positive. The patient's symptoms are likely due to a gi bleed and anemia at this time. The patient is also experiencing an AMANDA with cmp abnormalities. Given her profound anemia, we will transfuse the patient with 2 units of blood. We will contact the ICU for possible ICU admission as well as GI and admit the patient for further management of her symptoms. We discussed the results and the plan with the patient who is agreeable with the plan. 04/07/17 14:[address] Minor with GI who has been made aware of the case and requests Hematology consultation given the patients use of anticoagulation. 04/07/17 14:[address] Ruvalcaba who accepted the patient for ICU admission. Case discussed with the hospitalist team who accepted the patient for admission. Cardiology has been paged as well. 04/07/17 15:30 We discussed the case with cardiology Dr. Moore who is aware of the case. *DC/Admit/Observation/Transfer Diagnosis at time of Disposition: AMANDA (acute kidney injury) GI bleed Qualifiers: GI bleed type/associated pathology: unspecified gastrointestinal hemorrhage type Qualified Code(s): K92.2 - Gastrointestinal hemorrhage, unspecified Anemia Qualifiers: Anemia type: unspecified type Qualified Code(s): D64.9 - Anemia, unspecified Hypotension Qualifiers: Hypotension type: unspecified hypotension type Qualified Code(s): I95.9 - Hypotension, unspecified - Discharge Dispostion Condition at time of disposition: Guarded Admit: Yes - Referrals - Patient Instructions - Post Discharge Activity
[2017-04-07] MEDS ORDERED: PANTOPRAZOLE SODIUM 40 MG VIAL IVPUSH ONE (12:02)
[2017-04-07] MEDS ORDERED: SODIUM CHLORIDE 1,000 ML IV STA (12:02)
[2017-04-07] MEDS ORDERED: VANCOMYCIN 1,250 MG in DEXTROSE 5%-WATER - 250 ML IVPB ONE (12:02)
[2017-04-07] MEDS ORDERED: CEFTRIAXONE 1 GM in DEXTROSE 5%-WATER - 50 ML IVPB ONE (12:06)
--- NOTE | 2017-04-07 12:09 | PDOC ---
Attending Attestation - Resident Resident Name: АннаMarcus - ED Attending Attestation I have performed the following: I have examined & evaluated the patient, The case was reviewed & discussed with the resident, I agree w/resident's findings & plan, Exceptions are as noted - HPI HPI: 04/07/17 12:08 82-year-old female with past medical history of hypertension, COPD, atrial fibrillation on requests, CHF presents to the emergency department for shortness of breath for several days and most recently dark stools. Patient denies midsternal chest pain. Has been feeling intermittently constipated and dizzy. Chills, eyes fevers, chills, cough, vomiting, dysuria. - Physicial Exam PE: 04/07/17 12:08 GENERAL: Awake, alert, and fully oriented, ill-appearing, cool to touch HEAD: No signs of trauma EYES: PERRLA, EOMI, sclera anicteric, conjunctiva clear ENT: Auricles normal inspection, hearing grossly normal, nares patent NECK: Normal ROM, supple, LUNGS: Breath sounds equal, clear to auscultation bilaterally. No wheezes, and no crackles HEART: Irregularly irregular rate and rhythm, normal S1 and S2, no murmurs, rubs or gallops ABDOMEN: Soft, nontender, normoactive bowel sounds. No guarding, no rebound. No masses EXTREMITIES: Normal range of motion, no edema. No clubbing or cyanosis. No cords, erythema, or tenderness NEUROLOGICAL: Cranial nerves II through XII grossly intact. Normal speech, normal gait SKIN: Warm, Dry, normal turgor, no rashes or lesions noted. - Critical Care Time Total Critical Care Time: 45 Critical Care Statement: The care of this patient involved high complexity decision making to prevent further life threatening deterioration of the patient 's condition and/or to evaluate & treat vital organ system(s) failure or risk of failure. - Medical Decision Making 04/07/17 12:08 Vital Signs Temp Pulse Resp BP Pulse Ox 96.7 F L 84 20 91/60 84 L 04/07/17 11:35 04/07/17 11:45 04/07/17 11:45 04/07/17 12:00 04/07/17 11:45 We'll need to rule out upper GI bleed, sepsis. Labs, sepsis protocol, type and screen. Initiate Protonix. Patient's blood pressure is low the patient is ill- appearing, we'll start empiric antibiotics after obtaining blood cultures. Patient should ultimately be admitted to the hospital. 04/07/17 14:13 CBC, BMP 04/07/17 12:15 04/07/17 12:15 CMP Sodium 135 mmol/L (136-145) L 04/07/17 12:15 Potassium 5.4 mmol/L (3.5-5.1) H D 04/07/17 12:15 Chloride 106 mmol/L (98-107) 04/07/17 12:15 Carbon Dioxide 20 mmol/L (21-32) L D 04/07/17 12:15 Anion Gap 9 (8-16) 04/07/17 12:15 BUN 66 mg/dL (7-18) H D 04/07/17 12:15 Creatinine 2.5 mg/dL (0.55-1.02) H D 04/07/17 12:15 Creat Clearance w eGFR 18.35 (>60) 04/07/17 12:15 Random Glucose 109 mg/dL (74-106) H D 04/07/17 12:15 Lactic Acid 2.0 mmol/L (0.4-2.0) 04/07/17 12:15 Calcium 8.0 mg/dL (8.5-10.1) L 04/07/17 12:15 Total Bilirubin 0.6 mg/dL (0.2-1.0) D 04/07/17 12:15 AST 9 U/L (15-37) L D 04/07/17 12:15 ALT 23 U/L (12-78) D 04/07/17 12:15 Alkaline Phosphatase 48 U/L (45-117) 04/07/17 12:15 Creatine Kinase 59 IU/L (26-192) 04/07/17 12:15 Troponin I < 0.02 ng/ml (0.00-0.05) 04/07/17 12:15 B-Natriuretic Peptide 4419.17 pg/ml (5-450) H 04/07/17 12:15 Total Protein 5.9 g/dl (6.4-8.2) L 04/07/17 12:15 Albumin 2.9 g/dl (3.4-5.0) L 04/07/17 12:15 Urine Test Results Urine Color Straw 04/07/17 12:27 Urine Appearance Clear 04/07/17 12:27 Urine pH 6.0 (5.0-8.0) 04/07/17 12:27 Ur Specific [place] 1.008 (1.001-1.035) 04/07/17 12:27 Urine Protein Negative (NEGATIVE) 04/07/17 12:27 Urine Glucose (UA) Negative (NEGATIVE) 04/07/17 12:27 Urine Ketones Negative (NEGATIVE) 04/07/17 12:27 Urine Blood Negative (NEGATIVE) 04/07/17 12:27 Urine Nitrite Negative (NEGATIVE) 04/07/17 12:27 Urine Bilirubin Negative (NEGATIVE) 04/07/17 12:27 Labs reviewed. Stool guiac positive. Pt symptoms likely secondary to anemia in setting of UGIB on anticoagulants. Pt also noted with AMANDA, likely pre-renal. GI consult Admit 04/07/17 14:32 Case accepted to ICU by Dr. Ruvalcaba. Dr. Jessy saenz for discussion of reversal of anticoagulants Heart Score/ECG Review #1 ECG reviewed & interpreted by me at: 11:35 04/07/17 12:09 atrial fibrillation no rubens/std, T wave flat III, avF, TWI I, avL, V5-V6, QTC 434 msec
[2017-04-07 12:24] LABS: BASO % 1.3 % (0-2.0); EOS % 1.8 % (0-4.5); HEMATOCRIT 14.3 % (32.4-45.2); LYMPH % 10.1 % (8-40); MCH 24.9 pg (25.7-33.7); MCHC 31.3 g/dl (32.0-36.0); MEAN CELL VOLUME 79.5 fl (80-96); MEAN PLT VOLUME 7.5 fl (7.5-11.1); MONO % 14.5 % (3.8-10.2); NEUT % 72.3 % (42.8-82.8); PLATELET COUNT 134 K/MM3 (134-434); RDW 16.9 % (11.6-15.6); VENOUS PH 7.36 (7.32-7.42); WHITE BLOOD COUNT 4.1 K/mm3 (4.0-10.0)
[2017-04-07 12:25] LABS: VENOUS PC02 34.3 mmHg (38-52); VENOUS PO2 31.1 mmHg (28-48)
[2017-04-07] MEDS ORDERED: PANTOPRAZOLE SODIUM 40 MG/100 ML BAG IVPB ONE (12:32)
[2017-04-07] MEDS ORDERED: CEFTRIAXONE 1 GM/50 ML BAG ONE (12:32)
[2017-04-07] MEDS ORDERED: VANCOMYCIN 1 GRAM (PRE-DOCKED) 1,000 MG/250 ML BAG IVPB ONE (12:32)
[2017-04-07 12:43] LABS: URINE APPEARANCE CLEAR; URINE BILIRUBIN NEGATIVE (NEGATIVE); URINE BLOOD NEGATIVE (NEGATIVE); URINE COLOR STRAW; URINE GLUCOSE (UA) NEGATIVE (NEGATIVE); URINE KETONE NEGATIVE (NEGATIVE); URINE LEUK ESTERASE NEGATIVE (NEGATIVE); URINE NITRITE NEGATIVE (NEGATIVE); URINE PROTEIN NEGATIVE (NEGATIVE); URINE UROBILINOGEN NEGATIVE mg/dL (0.2-1.0)
[2017-04-07 12:46] LABS: ALBUMIN 2.9 g/dl (3.4-5.0); ANION GAP 9 (8-16); BLOOD UREA NITROGEN 66 mg/dL (7-18); CHLORIDE 106 mmol/L (98-107); CO2 20 mmol/L (21-32); CREATININE 2.5 mg/dL (0.55-1.02); GLUCOSE,RANDOM 109 mg/dL (74-106); POTASSIUM 5.4 mmol/L (3.5-5.1); SGOT/AST 9 U/L (15-37); SGPT/ALT 23 U/L (12-78); SODIUM 135 mmol/L (136-145); TOT PROT 5.9 g/dl (6.4-8.2)
[2017-04-07 12:48] LABS: ALK PHOS 48 U/L (45-117); BILIRUBIN,TOTAL 0.6 mg/dL (0.2-1.0); N-TERMINAL BNP 4419.17 pg/ml (5-450)
[2017-04-07 12:51] LABS: HEMOGLOBIN 4.5 GM/dL (10.7-15.3)
[2017-04-07 12:55] LABS: INR 2.21 (0.82-1.09)
[2017-04-07 12:58] LABS: ACTIVATED PTT 27.9 SECONDS (26.9-34.4)
[2017-04-07] MEDS: PANTOPRAZOLE SODIUM 80 MG in SODIUM CHLORIDE 100 ML IVPB SCH (13:32)
--- NOTE | 2017-04-07 15:21 | HP ---
CHIEF COMPLAINT: Shortness of breath PCP: HISTORY OF PRESENT ILLNESS: 82 year-old female with a PMH significant for HTN, HLD, CAD s/p NSTEMI and stent x 1 (09/2016) s/p positive stress MIBI (01/2017), atrial fibrillation, systolic heart failure, COPD, and hypothyroidism. Patient unable to give full history to this provider due to weakness and SOB with speaking. Patient is able to report an episode of black stool one week ago, and again 48 hours ago. She reports profound weakness and fatigue for several days. Patient unable to speak in complete sentences. ER course was notable for: (1) SIRS criteria met: T 96.7, hypotensive BP 73/60, lactic acid 2.8; no obvious source of infection, therefore did not meet sepsis criteria in ED (2) Hgb 4.5 (3) BUN/Cr 66/2.5 (4) INR 2.21 Recent Travel: No PAST MEDICAL HISTORY: Hypertension Hyperlipidemia Coronary artery disease Atrial fibrillation Systolic heart failure COPD Hypothyroidism PAST SURGICAL HISTORY: Cardiac stents Social History: Smoking: quit 23 years ago Alcohol: no Drugs: no Family History: non-contributory Allergies cephalexin [Cephalexin] Allergy (Intermediate, Verified 04/07/17 11:44) Rash clindamycin Allergy (Intermediate, Verified 04/07/17 11:44) Rash naproxen [From Naprosyn] Allergy (Intermediate, Verified 04/07/17 11:44) ANKLES SWELLED UP Penicillins Allergy (Intermediate, Verified 04/07/17 11:44) Rash diphenhydramine HCl [From Benadryl] Adverse Reaction (Verified 04/07/17 11:44) CAN'T HAVE,HAS GLAUCOMA HOME MEDICATIONS: Medication Instructions Recorded Travoprost (Benzalkonium) 1 gtt OD HS 05/29/11 [Travatan 0.004% Eye Drop] Levothyroxine [Synthroid -] 100 mcg PO DAILY 03/19/15 Potassium Chloride [Klor-Con M20] 20 meq PO ASDIR 03/19/15 Dorzolamide HCl [Trusopt] 10 ml OD BID 10/15/15 Apixaban [Eliquis] 2.5 mg PO BID 10/11/16 Aspirin [ASA -] 81 mg PO DAILY 10/11/16 Atorvastatin Ca [Lipitor] 40 mg PO HS 06/23/17 Lisinopril 5 mg PO DAILY 10/11/16 Carvedilol [Coreg -] 12.5 mg PO BID #60 tablet 10/12/16 Furosemide [Lasix] 40 mg PO DAILY #30 tablet 10/12/16 Albuterol Sulfate Inhaler - 1 - 2 inh PO PRN PRN 12/24/16 [Ventolin Hfa Inhaler -] REVIEW OF SYSTEMS CONSTITUTIONAL: Present: generalized weakness Absent: fever, chills, diaphoresis, malaise, loss of appetite, weight change HEENT: Absent: rhinorrhea, nasal congestion, throat pain, throat swelling, difficulty swallowing, mouth swelling, ear pain, eye pain, visual changes CARDIOVASCULAR: Absent: chest pain, syncope, palpitations, irregular heart rate, lightheadedness , peripheral edema RESPIRATORY: Absent: cough, shortness of breath, dyspnea with exertion, orthopnea, wheezing, stridor, hemoptysis GASTROINTESTINAL: Present: episodes of black stool x 2 over past week Absent: abdominal pain, abdominal distension, nausea, vomiting, diarrhea, constipation, melena, hematochezia GENITOURINARY: Absent: dysuria, frequency, urgency, hesitancy, hematuria, flank pain, genital pain MUSCULOSKELETAL: Absent: myalgia, arthralgia, joint swelling, back pain, neck pain SKIN: Absent: rash, itching, pallor HEMATOLOGIC/IMMUNOLOGIC: Absent: easy bleeding, easy bruising, lymphadenopathy, frequent infections ENDOCRINE: Absent: unexplained weight gain, unexplained weight loss, heat intolerance, cold intolerance NEUROLOGIC: Absent: headache, focal weakness or paresthesias, dizziness, unsteady gait, seizure, mental status changes, bladder or bowel incontinence PSYCHIATRIC: Absent: anxiety, depression, suicidal or homicidal ideation, hallucinations. PHYSICAL EXAMINATION Vital Signs Temperature 98 F 04/07/17 20:00 Pulse Rate 99 H 04/07/17 20:00 Respiratory Rate 18 04/07/17 20:00 Blood Pressure 129/85 04/07/17 20:00 O2 Sat by Pulse Oximetry (%) 100 04/07/17 20:44 GENERAL: Awake, alert, and fully oriented, in mild respiratory distress. HEAD: Normal with no signs of trauma. EYES: Pupils equal, round and reactive to light, extraocular movements intact, sclera anicteric, conjunctiva clear. No lid lag. EARS, NOSE, THROAT: Ears normal, nares patent, oropharynx clear without exudates. Moist mucous membranes. NECK: Normal range of motion, supple without lymphadenopathy, JVD, or masses. LUNGS: Diminished breath sounds bilaterally. Accessory muscle use. HEART: Regular rate and rhythm, normal S1 and S2 without murmur, rub or gallop. ABDOMEN: Soft, nontender, not distended, normoactive bowel sounds, no guarding, no rebound, no masses. MUSCULOSKELETAL: Normal range of motion at all joints. No bony deformities or tenderness. No CVA tenderness. UPPER EXTREMITIES: 2+ pulses, warm, well-perfused. No cyanosis. No clubbing. No peripheral edema. LOWER EXTREMITIES: 2+ pulses, warm, well-perfused. No calf tenderness. No peripheral edema. NEUROLOGICAL: Cranial nerves II-XII intact. Normal speech. Gait not observed. PSYCHIATRIC: Cooperative. Good eye contact. Appropriate mood and affect. SKIN: Warm, dry, normal turgor. Laboratory Results - last 24 hr 04/07/17 04/07/17 04/07/17 12:15 12:15 12:15 WBC 4.1 RBC 1.80 L D Hgb 4.5 L* D Hct 14.3 L MCV 79.5 L D MCH 24.9 L MCHC 31.3 L RDW 16.9 H Plt Count 134 MPV 7.5 D Neutrophils % 72.3 Lymphocytes % 10.1 D Monocytes % 14.5 H Eosinophils % 1.8 Basophils % 1.3 D PT with INR 25.00 H INR 2.21 H D PTT (Actin FS) 27.9 D VBG pH 7.36 POC VBG pCO2 34.3 L D POC VBG pO2 31.1 D Mixed VBG HCO3 19.1 Sodium Potassium Chloride Carbon Dioxide Anion Gap BUN Creatinine Creat Clearance w eGFR Random Glucose Lactic Acid Calcium Total Bilirubin AST ALT Alkaline Phosphatase Creatine Kinase Troponin I B-Natriuretic Peptide Total Protein Albumin Urine Color Urine Appearance Urine pH Ur Specific [place] Urine Protein Urine Glucose (UA) Urine Ketones Urine Blood Urine Nitrite Urine Bilirubin Urine Urobilinogen Stool Occult Blood Blood Type Antibody Screen Crossmatch 04/07/17 04/07/17 04/07/17 12:15 12:15 12:15 WBC RBC Hgb Hct MCV MCH MCHC RDW Plt Count MPV Neutrophils % Lymphocytes % Monocytes % Eosinophils % Basophils % PT with INR INR PTT (Actin FS) VBG pH POC VBG pCO2 POC VBG pO2 Mixed VBG HCO3 Sodium 135 L Potassium 5.4 H D Chloride 106 Carbon Dioxide 20 L D Anion Gap 9 BUN 66 H D Creatinine 2.5 H D Creat Clearance w eGFR 18.35 Random Glucose 109 H D Lactic Acid 2.0 Calcium 8.0 L Total Bilirubin 0.6 D AST 9 L D ALT 23 D Alkaline Phosphatase 48 Creatine Kinase 59 Troponin I < 0.02 B-Natriuretic Peptide 4419.17 H Total Protein 5.9 L Albumin 2.9 L Urine Color Urine Appearance Urine pH Ur Specific [place] Urine Protein Urine Glucose (UA) Urine Ketones Urine Blood Urine Nitrite Urine Bilirubin Urine Urobilinogen Stool Occult Blood Blood Type B POSITIVE Antibody Screen Negative Crossmatch See Detail 04/07/17 04/07/17 04/07/17 12:15 12:27 13:51 WBC RBC Hgb Hct MCV MCH MCHC RDW Plt Count MPV Neutrophils % Lymphocytes % Monocytes % Eosinophils % Basophils % PT with INR INR PTT (Actin FS) VBG pH POC VBG pCO2 POC VBG pO2 Mixed VBG HCO3 Sodium Potassium Chloride Carbon Dioxide Anion Gap BUN Creatinine Creat Clearance w eGFR Random Glucose Lactic Acid 2.8 H* Calcium Total Bilirubin AST ALT Alkaline Phosphatase Creatine Kinase Troponin I B-Natriuretic Peptide Total Protein Albumin Urine Color Straw Urine Appearance Clear Urine pH 6.0 Ur Specific [place] 1.008 Urine Protein Negative Urine Glucose (UA) Negative Urine Ketones Negative Urine Blood Negative Urine Nitrite Negative Urine Bilirubin Negative Urine Urobilinogen Negative Stool Occult Blood Positive Blood Type Antibody Screen Crossmatch ASSESSMENT/PLAN 82 year-old female with a PMH significant for HTN, HLD, CAD s/p NSTEMI and stent x 1 (09/2016) s/p positive stress MIBI (01/2017), atrial fibrillation, systolic heart failure, COPD, and hypothyroidism. Severe blood loss anemia --Hgb 4.3, occult stool positive --transfuse 3U PRBC --Lasix IV 40mg between first and second units; reassess after second unit for further diuresis --repeat cbc CAD s/p NSTEMI s/p stent --hold ASA, Plavix, anti-hypertensives Atrial fibrillation --hold Eliquis Systolic heart failure --lasix PRN Hypertension --hypotensive, hold meds COPD --stable Hypothyroidism --continue levothyroxine Visit type - Emergency Visit Emergency Visit: Yes ED Registration Date: 04/07/17 Care time: The patient presented to the Emergency Department on the above date and was hospitalized for further evaluation of their emergent condition. - New Patient This patient is new to me today: Yes Date on this admission: 04/09/17 - Critical Care Critical Care patient: Yes Total Critical Care Time (in minutes): 60 Critical Care Statement: The care of this patient involved high complexity decision making to prevent further life threatening deterioration of the patient 's condition and/or to evaluate & treat vital organ system(s) failure or risk of failure.
--- NOTE | 2017-04-07 17:52 | CON.GI ---
Consult Consult Specialty:: GI Referred by:: hospitalist Reason for Consultation:: guaiac positive stool, severe anemia - History of Present Illness History of Present Illness: 82 y/o F with PMH of A Fib on Plavix,Aspirin and Eliquis was admitted with weakness, history of melana 1 week ago associated severe anemia. Her hemoglobin was 4. SHe3 denies LOC, SOB abd chest pain. - Past Medical History Cardio/Vascular: Yes: CAD, HTN, Hyperlipdemia Psych: Yes: Anxiety - Past Surgical History Past Surgical History: Yes: Stent (coronary) - Alcohol/Substance Use Hx Alcohol Use: No - Smoking History Smoking history: Former smoker Have you smoked in the past 12 months: No Aproximately how many cigarettes per day: 40 If you are a former smoker, when did you quit?: 23 YEARS AGO Home Medications - Allergies Allergies/Adverse Reactions: Allergies Allergy/AdvReac Type Severity Reaction Status Date / Time cephalexin [Cephalexin] Allergy Intermediate Rash Verified 04/07/17 11:44 clindamycin Allergy Intermediate Rash Verified 04/07/17 11:44 naproxen [From Naprosyn] Allergy Intermediate ANKLES Verified 04/07/17 11:44 SWELLED UP Penicillins Allergy Intermediate Rash Verified 04/07/17 11:44 diphenhydramine HCl AdvReac CAN'T Verified 04/07/17 11:44 [From Benadryl] HAVE,HAS GLAUCOMA - Home Medications Home Medications: Ambulatory Orders Travoprost (Benzalkonium) [Travatan 0.004% Eye Drop] 1 gtt OD HS 05/29/11 Levothyroxine [Synthroid -] 100 mcg PO DAILY 03/19/15 Potassium Chloride [Klor-Con M20] 20 meq PO ASDIR 03/19/15 Dorzolamide HCl [Trusopt] 10 ml OD BID 10/15/15 Apixaban [Eliquis] 2.5 mg PO BID 10/11/16 Aspirin [ASA -] 81 mg PO DAILY 10/11/16 Atorvastatin Ca [Lipitor] 40 mg PO HS 10/11/16 Lisinopril 5 mg PO DAILY 10/11/16 Carvedilol [Coreg -] 12.5 mg PO BID #60 tablet 10/12/16 Furosemide [Lasix] 40 mg PO DAILY #30 tablet 10/12/16 Albuterol Sulfate Inhaler - [Ventolin Hfa Inhaler -] 1 - 2 inh PO PRN PRN Review of Systems - Review of Systems Constitutional: denies: No Symptoms, Chills, Diaphoresis, Fever, Lethargy, Loss of Appetite, Malaise, Night Sweats, Unintentional Wgt. Loss, Weakness, Other Eyes: denies: No Symptoms, Blind Spots, Blurred Vision, Double Vision, Eye Pain , Floaters, Photophobia, Recent Change in Vision, Other HENT: denies: No Symptoms, Difficult Swallowing, Ear Discharge, Ear Pain, Epistaxis, Gingival Bleeding, Hearing Loss, Mouth Swelling, Nasal Congestion, Ocular Prosthesis, Throat Pain, Toothache, Ringing in Ears, Other Neck: denies: No Symptoms, Decreased ROM, Lumps, Pain on Movement, Stiffness, Swollen Glands, Tenderness, Other Cardiovascular: denies: No Symptoms, Chest Pain, Edema, Palpitations, Shortness of Breath, Other Gastrointestinal: reports: Melena. denies: Abdominal Pain, Bloating, Constipation, Diarrhea, Dysphagia, Indigestion Physical Exam-GI Vital Signs: Vital Signs Temperature 98.0 F 04/07/17 17:29 Pulse Rate 82 04/07/17 17:29 Respiratory Rate 16 04/07/17 17:29 Blood Pressure 110/88 04/07/17 17:29 O2 Sat by Pulse Oximetry (%) 100 04/07/17 17:29 Constitutional: Yes: Well Nourished Eyes: Yes: Conjunctiva Clear HENT: Yes: Normocephalic Neck: Yes: Trachea Midline Cardiovascular: Yes: Regular Rate and Rhythm Respiratory: Yes: CTA Bilaterally ...Auscultate: Yes: Normoactive Bowel Sounds ...Palpate: Yes: Soft. No: Firm/Rigid, Guarding, Hepatomegaly, Mass, Pulsatile Mass, Splenomegaly, Tenderness Labs: CBC, BMP 04/07/17 12:15 04/07/17 12:15 INR, PTT INR 2.21 (0.82-1.09) H D 04/07/17 12:15 CBC,CMP WBC 4.1 K/mm3 (4.0-10.0) 04/07/17 12:15 RBC 1.80 M/mm3 (3.60-5.2) L D 04/07/17 12:15 Hgb 4.5 GM/dL (10.7-15.3) L* D 04/07/17 12:15 Hct 14.3 % (32.4-45.2) L 04/07/17 12:15 MCV 79.5 fl (80-96) L D 04/07/17 12:15 MCH 24.9 pg (25.7-33.7) L 04/07/17 12:15 MCHC 31.3 g/dl (32.0-36.0) L 04/07/17 12:15 RDW 16.9 % (11.6-15.6) H 04/07/17 12:15 Plt Count 134 K/MM3 (134-434) 04/07/17 12:15 MPV 7.5 fl (7.5-11.1) D 04/07/17 12:15 Neutrophils % 72.3 % (42.8-82.8) 04/07/17 12:15 Lymphocytes % 10.1 % (8-40) D 04/07/17 12:15 Monocytes % 14.5 % (3.8-10.2) H 04/07/17 12:15 Eosinophils % 1.8 % (0-4.5) 04/07/17 12:15 Basophils % 1.3 % (0-2.0) D 04/07/17 12:15 Sodium 135 mmol/L (136-145) L 04/07/17 12:15 Potassium 5.4 mmol/L (3.5-5.1) H D 04/07/17 12:15 Chloride 106 mmol/L (98-107) 04/07/17 12:15 Carbon Dioxide 20 mmol/L (21-32) L D 04/07/17 12:15 Anion Gap 9 (8-16) 04/07/17 12:15 BUN 66 mg/dL (7-18) H D 04/07/17 12:15 Creatinine 2.5 mg/dL (0.55-1.02) H D 04/07/17 12:15 Creat Clearance w eGFR 18.35 (>60) 04/07/17 12:15 Random Glucose 109 mg/dL (74-106) H D 04/07/17 12:15 Lactic Acid 2.8 mmol/L (0.4-2.0) H* 04/07/17 13:51 Calcium 8.0 mg/dL (8.5-10.1) L 04/07/17 12:15 Total Bilirubin 0.6 mg/dL (0.2-1.0) D 04/07/17 12:15 AST 9 U/L (15-37) L D 04/07/17 12:15 ALT 23 U/L (12-78) D 04/07/17 12:15 Alkaline Phosphatase 48 U/L (45-117) 04/07/17 12:15 Creatine Kinase 59 IU/L (26-192) 04/07/17 12:15 Troponin I < 0.02 ng/ml (0.00-0.05) 04/07/17 12:15 B-Natriuretic Peptide 4419.17 pg/ml (5-450) H 04/07/17 12:15 Total Protein 5.9 g/dl (6.4-8.2) L 04/07/17 12:15 Albumin 2.9 g/dl (3.4-5.0) L 04/07/17 12:15 Problem List - Problems (1) GI bleed Assessment/Plan: R> will need EGD and colonoscopy once medically cleared transfuse to HGB greater than 8 continue IV Protonix Code(s): K92.2 - GASTROINTESTINAL HEMORRHAGE, UNSPECIFIED Qualifiers: GI bleed type/associated pathology: unspecified gastrointestinal hemorrhage type Qualified Code(s): K92.2 - Gastrointestinal hemorrhage, unspecified
--- NOTE | 2017-04-07 18:35 | CON.CARD ---
Consult Consult Specialty:: Crdiology - History of Present Illness Chief Complaint: GI bleed History of Present Illness: 82-year-old female with past medical history of hypertension, COPD, atrial fibrillation on requests, CHF presents to the emergency department for shortness of breath for several days and most recently dark stools. Patient denies midsternal chest pain. Has been feeling intermittently constipated and dizzy. Chills, eyes fevers, chills, cough, vomiting, dysuria. PMH NSTEMI: (coronary angiogram 10/20/2015: triple vessel disease : Lt Main: 40%; LAD proximal 40%, mid 70%, distal 50%; LCx ostial 80%, proximal 60%, mid 95%, OM2 60 %; Ramus intermedius 70%; RCA proximal 40%, mid 95% hazy lesion, distal 60%; reduced LVEF, with apical akinesis and mid-inferior wall severe hypokinesis); PAD (bilateral SFA 30%) systolic CHF (mild LV dysfunction on 02/2016 ECHO; severe MR) Severe pulmonary HTN Chronic low back pain Hyperlipidemia Hypertension Hypothyroidism PAD scoliosis - Past Medical History Cardio/Vascular: Yes: AFIB, CAD, HTN, Hyperlipdemia Psych: Yes: Anxiety - Past Surgical History Past Surgical History: Yes: Stent (coronary) - Alcohol/Substance Use Hx Alcohol Use: No - Smoking History Smoking history: Former smoker Have you smoked in the past 12 months: No Aproximately how many cigarettes per day: 40 If you are a former smoker, when did you quit?: 23 YEARS AGO Home Medications - Allergies Allergies/Adverse Reactions: Allergies Allergy/AdvReac Type Severity Reaction Status Date / Time cephalexin [Cephalexin] Allergy Intermediate Rash Verified 04/07/17 11:44 clindamycin Allergy Intermediate Rash Verified 04/07/17 11:44 naproxen [From Naprosyn] Allergy Intermediate ANKLES Verified 04/07/17 11:44 SWELLED UP Penicillins Allergy Intermediate Rash Verified 04/07/17 11:44 diphenhydramine HCl AdvReac CAN'T Verified 04/07/17 11:44 [From Benadryl] HAVE,HAS GLAUCOMA - Home Medications Home Medications: Ambulatory Orders Travoprost (Benzalkonium) [Travatan 0.004% Eye Drop] 1 gtt OD HS 05/29/11 Levothyroxine [Synthroid -] 100 mcg PO DAILY 03/19/15 Potassium Chloride [Klor-Con M20] 20 meq PO ASDIR 03/19/15 Dorzolamide HCl [Trusopt] 10 ml OD BID 10/15/15 Apixaban [Eliquis] 2.5 mg PO BID 10/11/16 Aspirin [ASA -] 81 mg PO DAILY 10/11/16 Atorvastatin Ca [Lipitor] 40 mg PO HS 10/11/16 Lisinopril 5 mg PO DAILY 10/11/16 Carvedilol [Coreg -] 12.5 mg PO BID #60 tablet 10/12/16 Furosemide [Lasix] 40 mg PO DAILY #30 tablet 10/12/16 Albuterol Sulfate Inhaler - [Ventolin Hfa Inhaler -] 1 - 2 inh PO PRN PRN Review of Systems - Review of Systems Constitutional: reports: No Symptoms Eyes: reports: No Symptoms HENT: reports: No Symptoms Neck: reports: No Symptoms Cardiovascular: reports: No Symptoms Gastrointestinal: reports: Melena Genitourinary: reports: No Symptoms Breasts: reports: No Symptoms Reported Musculoskeletal: reports: No Symptoms Integumentary: reports: No Symptoms Neurological: reports: No Symptoms Endocrine: reports: No Symptoms Hematology/Lymphatic: reports: No Symptoms Psychiatric: reports: No Symptoms Vital Signs: Vital Signs Temperature 98.0 F 04/07/17 18:00 Pulse Rate 86 04/07/17 18:00 Respiratory Rate 16 04/07/17 18:00 Blood Pressure 109/81 04/07/17 18:00 O2 Sat by Pulse Oximetry (%) 100 04/07/17 18:00 Constitutional: Yes: Well Nourished, No Distress, Calm Eyes: Yes: WNL, Conjunctiva Clear, EOM Intact HENT: Yes: WNL, Atraumatic, Normocephalic Neck: Yes: WNL, Supple, Trachea Midline Respiratory: Yes: WNL, Regular, CTA Bilaterally Gastrointestinal: Yes: WNL, Normal Bowel Sounds Renal/: Yes: WNL Cardiovascular: Yes: Pulse Irregular Musculoskeletal: Yes: WNL Extremities: Yes: WNL Integumentary: Yes: WNL Neurological: Yes: WNL, Alert, Oriented ...Motor Strength: WNL Psychiatric: Yes: WNL, Alert, Oriented - Other Data Labs, Other Data: CBC, BMP 04/07/17 12:15 04/07/17 12:15 INR, PTT INR 2.21 (0.82-1.09) H D 04/07/17 12:15 Troponin, BNP 04/07/17 12:15 Troponin I < 0.02 B-Natriuretic Peptide 4419.17 H Troponin, BNP 04/07/17 12:15 Troponin I < 0.02 B-Natriuretic Peptide 4419.17 H Imaging - Results Chest X-ray: Image Reviewed (no i/e) EKG: Image Reviewed (af rep abn, ? IWMI) Problem List - Problems (1) AMANDA (acute kidney injury) Code(s): N17.9 - ACUTE KIDNEY FAILURE, UNSPECIFIED (2) Anemia Code(s): D64.9 - ANEMIA, UNSPECIFIED Qualifiers: Anemia type: unspecified type Qualified Code(s): D64.9 - Anemia, unspecified (3) GI bleed Code(s): K92.2 - GASTROINTESTINAL HEMORRHAGE, UNSPECIFIED Qualifiers: GI bleed type/associated pathology: unspecified gastrointestinal hemorrhage type Qualified Code(s): K92.2 - Gastrointestinal hemorrhage, unspecified (4) Hypotension Code(s): I95.9 - HYPOTENSION, UNSPECIFIED Qualifiers: Hypotension type: unspecified hypotension type Qualified Code(s): I95.9 - Hypotension, unspecified (5) ASHD (arteriosclerotic heart disease) Code(s): I25.10 - ATHSCL HEART DISEASE OF [place] CORONARY ARTERY W/O ANG PCTRS (6) Acute on chronic systolic (congestive) heart failure Code(s): I50.23 - ACUTE ON CHRONIC SYSTOLIC (CONGESTIVE) HEART FAILURE (7) Ankle pain, left Code(s): M25.572 - PAIN IN LEFT ANKLE AND JOINTS OF LEFT FOOT (8) Anxiety Code(s): F41.9 - ANXIETY DISORDER, UNSPECIFIED (9) Atrial fibrillation Code(s): I48.91 - UNSPECIFIED ATRIAL FIBRILLATION Qualifiers: Atrial fibrillation type: unspecified Qualified Code(s): I48.91 - Unspecified atrial fibrillation (10) COPD (chronic obstructive pulmonary disease) Code(s): J44.9 - CHRONIC OBSTRUCTIVE PULMONARY DISEASE, UNSPECIFIED (11) COPD exacerbation Code(s): J44.1 - CHRONIC OBSTRUCTIVE PULMONARY DISEASE W (ACUTE) EXACERBATION (12) COPD mixed type Code(s): J44.9 - CHRONIC OBSTRUCTIVE PULMONARY DISEASE, UNSPECIFIED (13) Chest pain Code(s): R07.9 - CHEST PAIN, UNSPECIFIED Qualifiers: Chest pain type: unspecified Qualified Code(s): R07.9 - Chest pain, unspecified (14) Community acquired pneumonia Code(s): J18.9 - PNEUMONIA, UNSPECIFIED ORGANISM (15) DVT prophylaxis Code(s): GMQ0412 - (16) Elevated glucose Code(s): R73.09 - OTHER ABNORMAL GLUCOSE (17) Elevated lactic acid level Code(s): E87.2 - ACIDOSIS (18) Elevated troponin Code(s): R79.89 - OTHER SPECIFIED ABNORMAL FINDINGS OF BLOOD CHEMISTRY (19) Elevated troponin I level Code(s): R79.89 - OTHER SPECIFIED ABNORMAL FINDINGS OF BLOOD CHEMISTRY (20) [place] cardiac risk >20% in next 10 years Code(s): Z91.89 - OTH PERSONAL RISK FACTORS, NOT ELSEWHERE CLASSIFIED (21) Hypertension Code(s): I10 - ESSENTIAL (PRIMARY) HYPERTENSION (22) Hyponatremia Code(s): E87.1 - HYPO-OSMOLALITY AND HYPONATREMIA (23) Lactic acid acidosis Code(s): E87.2 - ACIDOSIS (24) Moderate to severe pulmonary hypertension Code(s): I27.2 - OTHER SECONDARY PULMONARY HYPERTENSION * DO NOT USE * (25) NSTEMI (non-ST elevated myocardial infarction) Code(s): I21.4 - NON-ST ELEVATION (NSTEMI) MYOCARDIAL INFARCTION (26) Plantar fasciitis Code(s): M72.2 - PLANTAR FASCIAL FIBROMATOSIS (27) Pneumonia Code(s): J18.9 - PNEUMONIA, UNSPECIFIED ORGANISM (28) Respiratory distress Code(s): R06.00 - DYSPNEA, UNSPECIFIED (29) Respiratory failure Code(s): J96.90 - RESPIRATORY FAILURE, UNSP, UNSP W HYPOXIA OR HYPERCAPNIA (30) Sepsis Code(s): A41.9 - SEPSIS, UNSPECIFIED ORGANISM (31) Sepsis due to pneumonia Code(s): J18.9 - PNEUMONIA, UNSPECIFIED ORGANISM; A41.9 - SEPSIS, UNSPECIFIED ORGANISM Assessment/Plan AF on AC GI bleed NSTEMI: (coronary angiogram 10/20/2015: triple vessel disease : Lt Main: 40%; LAD proximal 40%, mid 70%, distal 50%; LCx ostial 80%, proximal 60%, mid 95%, OM2 60 %; Ramus intermedius 70%; RCA proximal 40%, mid 95% hazy lesion, distal 60%; reduced LVEF, with apical akinesis and mid-inferior wall severe hypokinesis); PAD (bilateral SFA 30%) systolic CHF (mild LV dysfunction on 02/2016 ECHO; severe MR) Severe pulmonary HTN Chronic low back pain Hyperlipidemia Hypertension Hypothyroidism PAD scoliosis Plan stop AC transfuse to HCT 30 GI w/u
[2017-04-07 18:59] VITALS: BMI 19.1
[2017-04-07] MEDS ORDERED: FUROSEMIDE 40 MG/4 ML INJECTABLE VIAL IVPUSH STA (19:12)
--- NOTE | 2017-04-07 19:22 | CONSULT ---
Consult - text type - Consultation Consultation Note: 82 y/o F with PMH of A Fib on Plavix,Aspirin and Eliquis was admitted with weakness, history of melena 1 week ago associated severe anemia. Her hemoglobin was 4. SHe denies LOC, SOB abd chest pain. - Past Medical History Cardio/Vascular: Yes: CAD, HTN, Hyperlipdemia Psych: Yes: Anxiety - Past Surgical History Past Surgical History: Yes: Stent (coronary) - Smoking History Smoking history: Former smoker Home Medications - Allergies Allergies/Adverse Reactions: Allergies Allergy/AdvReac Type Severity Reaction Status Date / Time cephalexin [Cephalexin] Allergy Intermediate Rash Verified 04/07/17 11:44 clindamycin Allergy Intermediate Rash Verified 04/07/17 11:44 naproxen [From Naprosyn] Allergy Intermediate ANKLES Verified 04/07/17 11:44 SWELLED UP Penicillins Allergy Intermediate Rash Verified 04/07/17 11:44 diphenhydramine HCl AdvReac CAN'T Verified 04/07/17 11:44 [From Benadryl] HAVE,HAS GLAUCOMA - Home Medications Home Medications: Ambulatory Orders Travoprost (Benzalkonium) [Travatan 0.004% Eye Drop] 1 gtt OD HS 05/29/11 Levothyroxine [Synthroid -] 100 mcg PO DAILY 03/19/15 Potassium Chloride [Klor-Con M20] 20 meq PO ASDIR 03/19/15 Dorzolamide HCl [Trusopt] 10 ml OD BID 10/15/15 Apixaban [Eliquis] 2.5 mg PO BID 10/11/16 Aspirin [ASA -] 81 mg PO DAILY 10/11/16 Atorvastatin Ca [Lipitor] 40 mg PO HS 10/11/16 Lisinopril 5 mg PO DAILY 10/11/16 Carvedilol [Coreg -] 12.5 mg PO BID #60 tablet 10/12/16 Furosemide [Lasix] 40 mg PO DAILY #30 tablet 10/12/16 Albuterol Sulfate Inhaler - [Ventolin Hfa Inhaler -] 1 - 2 inh PO PRN PRN Vital Signs: Vital Signs Temperature 98.0 F 04/07/17 17:29 Pulse Rate 82 04/07/17 17:29 Respiratory Rate 16 04/07/17 17:29 Blood Pressure 110/88 04/07/17 17:29 O2 Sat by Pulse Oximetry (%) 100 04/07/17 17:29 Constitutional: Yes: Well Nourished Eyes: Yes: Conjunctiva Clear HENT: Yes: Normocephalic Neck: Yes: Trachea Midline Cardiovascular: Yes: Regular Rate and Rhythm Respiratory: Yes: CTA Bilaterally ...Auscultate: Yes: Normoactive Bowel Sounds ...Palpate: Yes: Soft. No: Firm/Rigid, Guarding, Hepatomegaly, Mass, Pulsatile Mass, Splenomegaly, Tenderness Labs: CBC, BMP 04/07/17 12:15 04/07/17 12:15 INR, PTT INR 2.21 (0.82-1.09) H D 04/07/17 12:15 CBC,CMP WBC 4.1 K/mm3 (4.0-10.0) 04/07/17 12:15 RBC 1.80 M/mm3 (3.60-5.2) L D 04/07/17 12:15 Hgb 4.5 GM/dL (10.7-15.3) L* D 04/07/17 12:15 Hct 14.3 % (32.4-45.2) L 04/07/17 12:15 MCV 79.5 fl (80-96) L D 04/07/17 12:15 MCH 24.9 pg (25.7-33.7) L 04/07/17 12:15 MCHC 31.3 g/dl (32.0-36.0) L 04/07/17 12:15 RDW 16.9 % (11.6-15.6) H 04/07/17 12:15 Plt Count 134 K/MM3 (134-434) 04/07/17 12:15 MPV 7.5 fl (7.5-11.1) D 04/07/17 12:15 Neutrophils % 72.3 % (42.8-82.8) 04/07/17 12:15 Lymphocytes % 10.1 % (8-40) D 04/07/17 12:15 Monocytes % 14.5 % (3.8-10.2) H 04/07/17 12:15 Eosinophils % 1.8 % (0-4.5) 04/07/17 12:15 Basophils % 1.3 % (0-2.0) D 04/07/17 12:15 Sodium 135 mmol/L (136-145) L 04/07/17 12:15 Potassium 5.4 mmol/L (3.5-5.1) H D 04/07/17 12:15 Chloride 106 mmol/L (98-107) 04/07/17 12:15 Carbon Dioxide 20 mmol/L (21-32) L D 04/07/17 12:15 Anion Gap 9 (8-16) 04/07/17 12:15 BUN 66 mg/dL (7-18) H D 04/07/17 12:15 Creatinine 2.5 mg/dL (0.55-1.02) H D 04/07/17 12:15 Creat Clearance w eGFR 18.35 (>60) 04/07/17 12:15 Random Glucose 109 mg/dL (74-106) H D 04/07/17 12:15 Lactic Acid 2.8 mmol/L (0.4-2.0) H* 04/07/17 13:51 Calcium 8.0 mg/dL (8.5-10.1) L 04/07/17 12:15 Total Bilirubin 0.6 mg/dL (0.2-1.0) D 04/07/17 12:15 AST 9 U/L (15-37) L D 04/07/17 12:15 ALT 23 U/L (12-78) D 04/07/17 12:15 Alkaline Phosphatase 48 U/L (45-117) 04/07/17 12:15 Creatine Kinase 59 IU/L (26-192) 04/07/17 12:15 Troponin I < 0.02 ng/ml (0.00-0.05) 04/07/17 12:15 B-Natriuretic Peptide 4419.17 pg/ml (5-450) H 04/07/17 12:15 Total Protein 5.9 g/dl (6.4-8.2) L 04/07/17 12:15 Albumin 2.9 g/dl (3.4-5.0) L 04/07/17 12:15 Problem List 82 y/o female with CAD, HTN, hyperlipidemia, afib, admitted with gi bleed/ melena Took [id number]/plavix and eliquis 2.5 mg this morning Hgb 4.5 Transfuse 2 units PRBCs and 2 units monodonor platelets continue protonix ICU monitoring GI on board discussed with cardiology
--- NOTE | 2017-04-07 20:52 | CONSULT ---
Consult Consult Specialty:: Pulmonary critical care Reason for Consultation:: GIB - History of Present Illness Chief Complaint: Weakness History of Present Illness: 82 yo female with h/o HTN, COPD, Afib on AC, CHF who presented to ED c/o weakness and SOB as well as dark stools for a week. Initial labs notable for Hgb of 4.5, Plt 134, INR 2.2, Cr 2.5 (unknown baseline), BNP 4419, negative troponin. Was started on protonix drip, also given a dose of ceftriaxone and vanco (unclear indication). Pt was then transferred to ICU for further management. Currently has received 1 unit of PRBC and is receiving her second one with plan for repeat CBC after. Active Medications Acetaminophen (Tylenol -) 650 mg PO Q6H PRN PRN Reason: FEVER OR PAIN Chlorhexidine Gluconate (Hibiclens For Decolonization -) 1 applic TP HS [place] Pantoprazole Sodium 80 mg/ (Sodium Chloride) 100 mls @ 10 mls/hr IVPB Q10H [place] PRN Reason: 8 MG/HR Last Admin: 04/07/17 13:32 Dose: 10 mls/hr Mupirocin (Bactroban Ointment (For Decolonization) -) 1 applic NS BID [place] Stop: 04/12/17 21:59 - Past Medical History Cardio/Vascular: Yes: AFIB, CAD, HTN, Hyperlipdemia Psych: Yes: Anxiety - Past Surgical History Past Surgical History: Yes: Stent (coronary) - Alcohol/Substance Use Hx Alcohol Use: No - Smoking History Smoking history: Former smoker Have you smoked in the past 12 months: No Aproximately how many cigarettes per day: 40 If you are a former smoker, when did you quit?: 23 YEARS AGO Home Medications - Allergies Allergies/Adverse Reactions: Allergies Allergy/AdvReac Type Severity Reaction Status Date / Time cephalexin [Cephalexin] Allergy Intermediate Rash Verified 04/07/17 11:44 clindamycin Allergy Intermediate Rash Verified 04/07/17 11:44 naproxen [From Naprosyn] Allergy Intermediate ANKLES Verified 04/07/17 11:44 SWELLED UP Penicillins Allergy Intermediate Rash Verified 04/07/17 11:44 diphenhydramine HCl AdvReac CAN'T Verified 04/07/17 11:44 [From Benadryl] HAVE,HAS GLAUCOMA - Home Medications Home Medications: Ambulatory Orders Travoprost (Benzalkonium) [Travatan 0.004% Eye Drop] 1 gtt OD HS 05/29/11 Levothyroxine [Synthroid -] 100 mcg PO DAILY 03/19/15 Potassium Chloride [Klor-Con M20] 20 meq PO ASDIR 03/19/15 Dorzolamide HCl [Trusopt] 1 drop OU DAILY 10/15/15 Apixaban [Eliquis] 2.5 mg PO BID 10/11/16 Aspirin [ASA -] 81 mg PO DAILY 10/11/16 Atorvastatin Ca [Lipitor] 40 mg PO HS 10/11/16 Lisinopril 5 mg PO DAILY 10/11/16 Carvedilol [Coreg -] 12.5 mg PO BID #60 tablet 10/12/16 Furosemide [Lasix] 40 mg PO DAILY #30 tablet 10/12/16 Albuterol Sulfate Inhaler - [Ventolin Hfa Inhaler -] 1 - 2 inh PO PRN PRN Clopidogrel Bisulfate [Plavix -] 75 mg PO DAILY 04/07/17 Isosorbide Mononitrate [Isosorbide Mononitrate ER] 30 mg PO HS 04/07/17 Latanoprost 0.005% Eye Drops [Xalatan 0.005% Eye Drops -] 1 drop OU HS 04/07/17 Pantoprazole Sodium [Protonix] 40 mg PO DAILY 04/07/17 Physical Exam Vital Signs: Vital Signs Temperature 98 F 04/07/17 20:00 Pulse Rate 99 H 04/07/17 20:00 Respiratory Rate 18 04/07/17 20:00 Blood Pressure 129/85 04/07/17 20:00 O2 Sat by Pulse Oximetry (%) 98 04/07/17 19:11 Constitutional: Yes: Calm (pale conjunctiva) Cardiovascular: Yes: S1, S2 Respiratory: Yes: CTA Bilaterally Gastrointestinal: Yes: Normal Bowel Sounds, Soft. No: Tenderness, Tenderness, Rebound Extremities: Yes: WNL Edema: No Peripheral Pulses WNL: Yes Neurological: Yes: Alert, Oriented Labs: CBC, BMP 04/07/17 12:15 04/07/17 12:15 CBCD WBC 4.1 K/mm3 (4.0-10.0) 04/07/17 12:15 RBC 1.80 M/mm3 (3.60-5.2) L D 04/07/17 12:15 Hgb 4.5 GM/dL (10.7-15.3) L* D 04/07/17 12:15 Hct 14.3 % (32.4-45.2) L 04/07/17 12:15 MCV 79.5 fl (80-96) L D 04/07/17 12:15 MCHC 31.3 g/dl (32.0-36.0) L 04/07/17 12:15 RDW 16.9 % (11.6-15.6) H 04/07/17 12:15 Plt Count 134 K/MM3 (134-434) 04/07/17 12:15 MPV 7.5 fl (7.5-11.1) D 04/07/17 12:15 CMP Sodium 135 mmol/L (136-145) L 04/07/17 12:15 Potassium 5.4 mmol/L (3.5-5.1) H D 04/07/17 12:15 Chloride 106 mmol/L (98-107) 04/07/17 12:15 Carbon Dioxide 20 mmol/L (21-32) L D 04/07/17 12:15 Anion Gap 9 (8-16) 04/07/17 12:15 BUN 66 mg/dL (7-18) H D 04/07/17 12:15 Creatinine 2.5 mg/dL (0.55-1.02) H D 04/07/17 12:15 Creat Clearance w eGFR 18.35 (>60) 04/07/17 12:15 Calcium 8.0 mg/dL (8.5-10.1) L 04/07/17 12:15 Total Bilirubin 0.6 mg/dL (0.2-1.0) D 04/07/17 12:15 AST 9 U/L (15-37) L D 04/07/17 12:15 ALT 23 U/L (12-78) D 04/07/17 12:15 Alkaline Phosphatase 48 U/L (45-117) 04/07/17 12:15 Total Protein 5.9 g/dl (6.4-8.2) L 04/07/17 12:15 Albumin 2.9 g/dl (3.4-5.0) L 04/07/17 12:15 Troponin, BNP 04/07/17 04/07/17 12:15 18:12 Troponin I < 0.02 < 0.02 B-Natriuretic Peptide 4419.17 H Imaging - Results Chest X-ray: Image Reviewed Problem List - Problems (1) AMANDA (acute kidney injury) Code(s): N17.9 - ACUTE KIDNEY FAILURE, UNSPECIFIED (2) Anemia Code(s): D64.9 - ANEMIA, UNSPECIFIED Qualifiers: Anemia type: unspecified type Qualified Code(s): D64.9 - Anemia, unspecified (3) GI bleed Code(s): K92.2 - GASTROINTESTINAL HEMORRHAGE, UNSPECIFIED Qualifiers: GI bleed type/associated pathology: unspecified gastrointestinal hemorrhage type Qualified Code(s): K92.2 - Gastrointestinal hemorrhage, unspecified Assessment/Plan GIB in the setting of AC Anemia in the setting of GIB AMANDA Hypoxemia likely in the setting of anemia HTN CHF Elevated BNP Elevated lactate -GI following -cardiology following -cont protonix drip -2 large bore IVs -transfuse 2 units of PRBC -2 units of platelets (pt on asa/plavix) -repeat CBC after -transfuse of Hgb >7 -hold Eliquis -hold plavix and ASA -hold antiHTN -lasix with transfusions -supplemental O2 as needed -recheck BMP after transfusion to evaluate Cr -recheck lactate -trend BNP -no indications for abx at this point PAZ Villavicencio Critical Care time: 35 minutes
[2017-04-07] MEDS: MUPIROCIN 2% TOPICAL OINTMENT FOR DECOLONIZATION NS SCH (21:42)
[2017-04-07] MEDS: CHLORHEXIDINE GLUCONATE 4% CLEANSER FOR DECOLONIZATION TP SCH (21:43)
--- NOTE | 2017-04-08 01:21 | EKG ---
Test Reason : Blood Pressure : / mmHG Vent. Rate : 084 BPM Atrial Rate : 300 BPM P-R Int : 000 ms QRS Dur : 080 ms QT Int : 368 ms P-R-T Axes : 000 047 207 degrees QTc Int : 434 ms ATRIAL FIBRILLATION ABNORMAL ECG WHEN COMPARED WITH ECG OF 02-FEB-2017 19:53, NO SIGNIFICANT CHANGE WAS FOUND Confirmed by TAJ ROSSI MD ([id number] on 04/08/2017 1:20:50 AM Referred By: Confirmed By:TAJ ROSSI MD
[2017-04-08 05:57] LABS: BASO % 0.7 % (0-2.0); HEMATOCRIT 23.2 % (32.4-45.2); HEMOGLOBIN 7.7 GM/dL (10.7-15.3); LYMPH % 5.9 % (8-40); MCH 26.7 pg (25.7-33.7); MEAN PLT VOLUME 7.6 fl (7.5-11.1); NEUT % 79.4 % (42.8-82.8); PLATELET COUNT 218 K/MM3 (134-434); RBC 2.87 M/mm3 (3.60-5.2); WHITE BLOOD COUNT 7.3 K/mm3 (4.0-10.0)
[2017-04-08 06:18] LABS: INR 1.67 (0.82-1.09); PROTHROMBIN TIME (PATIENT) 18.9 SEC (9.98-11.88)
[2017-04-08 06:20] LABS: ALBUMIN 3.2 g/dl (3.4-5.0); ANION GAP 12 (8-16); BLOOD UREA NITROGEN 57 mg/dL (7-18); CALCIUM 8.9 mg/dL (8.5-10.1); CHLORIDE 103 mmol/L (98-107); CO2 25 mmol/L (21-32); CREATININE 1.8 mg/dL (0.55-1.02); GLUCOSE,RANDOM 86 mg/dL (74-106); MAGNESIUM 1.8 mg/dL (1.8-2.4); PHOSPHOROUS 4.1 mg/dL (2.5-4.9); POTASSIUM 4.2 mmol/L (3.5-5.1); SGOT/AST 13 U/L (15-37); SGPT/ALT 22 U/L (12-78); SODIUM 140 mmol/L (136-145)
[2017-04-08 06:21] LABS: ACTIVATED PTT 27.7 SECONDS (26.9-34.4); ALK PHOS 52 U/L (45-117)
--- NOTE | 2017-04-08 08:50 | PN ---
Progress Note, Physician Chief Complaint: Pt A&Ox3; she did not sleep well becasue she was scared thinking she might " need a (?colostomy) bag"". Short of breath on mild exertion.; anxiety.No chest pain or dizziness. History of Present Illness: The patient is an 82 year old fwhite female with a history of triple vessel CAD (s/p mid-RCA DEstent 2015; no PCI needed on coronary angiogram 01/2017, but noted severe MR, mild-moderate LV dysfunction, and moderately severe pulmonary HTN; pt refused trans-septal mitral valve replacement), afib, COPD, HTN, HLD, who presents for evaluation of generalized weakness and shortness of breath. The patient reports a several day history of generalized weakness with associated shortness of breath at rest worse with exertion. She noted some dizziness and worsening symptoms earlier this morning prompting her presentation to the ED for evaluation. She notes that she has been constipated over the past few days, but noted some dark black stools yesterday evening. She states that she has had similar symptoms in the past. She denies any headache, cough, fevers, chest pain, abdominal pain, nausea, vomiting, or changes with urination. She notes that she has been very cold over the past few days. She denies any recent weight gain or leg swelling. - Current Medication List Current Medications: Active Medications Acetaminophen (Tylenol -) 650 mg PO Q6H PRN PRN Reason: FEVER OR PAIN Chlorhexidine Gluconate (Hibiclens For Decolonization -) 1 applic TP HS [facility] Last Admin: 04/07/17 21:43 Dose: 1 applic Pantoprazole Sodium 80 mg/ (Sodium Chloride) 100 mls @ 10 mls/hr IVPB Q10H [facility] PRN Reason: 8 MG/HR Last Admin: 04/07/17 13:32 Dose: 10 mls/hr Mupirocin (Bactroban Ointment (For Decolonization) -) 1 applic NS BID [facility] Stop: 04/12/17 21:59 Last Admin: 04/07/17 21:42 Dose: 1 applic - Objective Vital Signs: Vital Signs Temperature 98.6 F 04/08/17 06:00 Pulse Rate 86 04/08/17 05:14 Respiratory Rate 18 04/08/17 05:14 Blood Pressure 123/89 04/08/17 05:14 O2 Sat by Pulse Oximetry (%) 100 04/07/17 20:44 Constitutional: Yes: Anxious Eyes: Yes: WNL HENT: Yes: WNL Neck: Yes: WNL Cardiovascular: Yes: Regular Rate and Rhythm Respiratory: Yes: Diminished Gastrointestinal: Yes: Soft ...Rectal Exam: Yes: Deferred Genitourinary: No: Anuria Breast(s): Yes: WNL Musculoskeletal: Yes: Muscle Weakness Extremities: Yes: Cold Edema: No Peripheral Pulses WNL: Yes Integumentary: Yes: WNL Neurological: Yes: WNL Psychiatric: Yes: WNL Labs: CBC, BMP 04/08/17 05:45 04/08/17 05:45 INR, PTT INR 1.67 (0.82-1.09) H 04/08/17 05:45 Fibrinogen 295.0 mg/dL (238-498) 04/08/17 05:45 Abnormal Lab Results 04/07/17 04/07/17 04/07/17 12:15 12:15 12:15 RBC 1.80 L D Hgb 4.5 L* D Hct 14.3 L MCV 79.5 L D MCH 24.9 L MCHC 31.3 L RDW 16.9 H Lymphocytes % Monocytes % 14.5 H PT with INR 25.00 H INR 2.21 H D POC VBG pCO2 34.3 L D Sodium Potassium Carbon Dioxide BUN Creatinine Random Glucose Lactic Acid Calcium Total Bilirubin AST B-Natriuretic Peptide Total Protein Albumin Crossmatch 04/07/17 04/07/17 04/07/17 12:15 12:15 13:51 RBC Hgb Hct MCV MCH MCHC RDW Lymphocytes % Monocytes % PT with INR INR POC VBG pCO2 Sodium 135 L Potassium 5.4 H D Carbon Dioxide 20 L D BUN 66 H D Creatinine 2.5 H D Random Glucose 109 H D Lactic Acid 2.8 H* Calcium 8.0 L Total Bilirubin AST 9 L D B-Natriuretic Peptide 4419.17 H Total Protein 5.9 L Albumin 2.9 L Crossmatch See Detail 04/08/17 04/08/17 04/08/17 05:45 05:45 05:45 RBC 2.87 L D Hgb 7.7 L D Hct 23.2 L D MCV MCH MCHC RDW Lymphocytes % 5.9 L D Monocytes % 12.0 H PT with INR 18.90 H INR 1.67 H POC VBG pCO2 Sodium Potassium Carbon Dioxide BUN 57 H Creatinine 1.8 H D Random Glucose Lactic Acid Calcium Total Bilirubin 2.0 H D AST 13 L D B-Natriuretic Peptide Total Protein 6.0 L Albumin 3.2 L Crossmatch - ....Imaging Chest X-ray: Pending Other: Image Reviewed (Telemetry: Atrial flutter) Problem List - Problems (1) Severe mitral regurgitation Assessment/Plan: 01/2017 coronary angiogram showed triple vessel CAD (no PCI required); hx mid- RCA-->drug-eleuting stent 2015. Pt refused trans-septal mitral valve replacement at the time.. She has been on furosemide, but this has been held presently due to marked rise in BUN/Cr,, and hypotension. F/u CXR;Is and Os, daily weight, BUN/Cr, electrolytes. Code(s): I34.0 - NONRHEUMATIC MITRAL (VALVE) INSUFFICIENCY (2) Anemia Code(s): D64.9 - ANEMIA, UNSPECIFIED Qualifiers: Anemia type: unspecified type Qualified Code(s): D64.9 - Anemia, unspecified (3) GI bleed Assessment/Plan: F/u with GI (Dr. Minor). From a cardiac perspective, there are no absolute contraindications for Ms. Leiva to undergo EGD and colonoscopy. Code(s): K92.2 - GASTROINTESTINAL HEMORRHAGE, UNSPECIFIED Qualifiers: GI bleed type/associated pathology: unspecified gastrointestinal hemorrhage type Qualified Code(s): K92.2 - Gastrointestinal hemorrhage, unspecified (4) Hypotension Assessment/Plan: all antihypertensives and CHF meds held; PRBCs, fluids as [id number]. B/u serial BP and HR, BUN/Cr, is and Os, daily weight, electrolytes. Code(s): I95.9 - HYPOTENSION, UNSPECIFIED Qualifiers: Hypotension type: unspecified hypotension type Qualified Code(s): I95.9 - Hypotension, unspecified (5) ASHD (arteriosclerotic heart disease) Assessment/Plan: cc time spent assessing pt and furmulating plan: 45 mnutes. Code(s): I25.10 - ATHSCL HEART DISEASE OF [place] CORONARY ARTERY W/O ANG PCTRS (6) Acute on chronic systolic (congestive) heart failure Assessment/Plan: f/u results of most recently coronary angiogram, LV gram, and ECHO. Medications held presently due to hypotension. Receiving PRBCs; bring Hct to 30. Code(s): I50.23 - ACUTE ON CHRONIC SYSTOLIC (CONGESTIVE) HEART FAILURE (7) Anxiety Code(s): F41.9 - ANXIETY DISORDER, UNSPECIFIED (8) Atrial fibrillation Assessment/Plan: anticoagulation and antiplatelets held pending GI workup for source of bleed. Code(s): I48.91 - UNSPECIFIED ATRIAL FIBRILLATION Qualifiers: Atrial fibrillation type: unspecified Qualified Code(s): I48.91 - Unspecified atrial fibrillation (9) COPD (chronic obstructive pulmonary disease) Code(s): J44.9 - CHRONIC OBSTRUCTIVE PULMONARY DISEASE, UNSPECIFIED (10) Moderate to severe pulmonary hypertension Code(s): I27.2 - OTHER SECONDARY PULMONARY HYPERTENSION * DO NOT USE * Assessment/Plan cc time spent: 45 minutes.
--- NOTE | 2017-04-08 11:39 | PN ---
Progress Note (short form) - Note Progress Note: Patient seen and examined Receiving transfusion PRBC. She denies any complains, feels concerned. O/E Constitutional: NAD,thin Eyes: Yes: Conjunctiva Clear HENT: Yes: Normocephalic Neck: Yes: Trachea Midline Cardiovascular: Yes: Regular Rate and Rhythm Respiratory: Yes: CTA Bilaterally Abdomen: soft,NT ND Last Vital Signs Temp Pulse Resp BP Pulse Ox 98.7 F 84 19 117/78 100 04/08/17 10:00 04/08/17 10:00 04/08/17 10:00 04/08/17 10:00 04/07/17 20:44 CBC, BMP 04/08/17 05:45 04/08/17 05:45 Current Medications Generic Name Dose Route Start Last Admin Trade Name Freq PRN Reason Stop Dose Admin Acetaminophen 650 mg 04/07/17 15:38 Tylenol - PO Q6H PRN FEVER OR PAIN Chlorhexidine Gluconate 1 applic 04/07/17 22:00 04/07/17 21:43 Hibiclens For Decolonization - TP 1 applic HS [facility] Administration Pantoprazole Sodium 80 mg/ 100 mls @ 10 mls/hr 04/07/17 12:15 04/07/17 13:32 Sodium Chloride IVPB 10 mls/hr Q10H [facility] Administration 8 MG/HR Mupirocin 1 applic 04/07/17 22:00 04/07/17 21:42 Bactroban Ointment (For Decolonization) - NS 04/12/17 21:59 1 applic BID [facility] Administration A/P 82 y/o female with CAD, HTN, hyperlipidemia, afib, admitted with gi bleed/ melena last dose of [id number]/plavix and eliquis 2.5 mg was 04/07 s/p 3 PRBC s/p Platelets ( given in the setting of anti-platelet use/bleed) Repeat CBC at around 2pm along with INR. In the setting of her Cr, though improving, the eliquis t1/2 might be a bit prolonged. ICU/GI/Cardiology appreciated. will continue to monitor will follow Rosetta
--- NOTE | 2017-04-08 12:37 | PN ---
Teaching Attending Note Name of Resident: Lorenzo Warren ATTENDING PHYSICIAN STATEMENT I saw and evaluated the patient. I reviewed the resident's note and discussed the case with the resident. I agree with the resident's findings and plan as documented. SUBJECTIVE: Pt seen and examined in the ICU. No bowel movements overnight. H/H responded appropriately to PRBC transfusions. Some LLQ discomfort. OBJECTIVE: Last Vital Signs Temp Pulse Resp BP Pulse Ox 98.7 F 84 19 117/78 100 04/08/17 10:00 04/08/17 10:00 04/08/17 10:00 04/08/17 10:00 04/07/17 20:44 Intake & Output 04/05/17 04/06/17 04/07/17 04/08/17 23:59 23:59 23:59 23:59 Intake Total 700 1220 Output Total 1500 Balance 700 -280 Weight 115 lb 117 lb 4.8 oz Gen: mildly tachypneic at rest Heart: irregular Lung: decreased breath sounds at the bases Abd: soft, mild TTP LLQ, no rebound Ext: no edema CBC, BMP 04/08/17 05:45 04/08/17 05:45 Active Medications Acetaminophen (Tylenol -) 650 mg PO Q6H PRN PRN Reason: FEVER OR PAIN Chlorhexidine Gluconate (Hibiclens For Decolonization -) 1 applic TP HS [facility] Last Admin: 04/07/17 21:43 Dose: 1 applic Pantoprazole Sodium 80 mg/ (Sodium Chloride) 100 mls @ 10 mls/hr IVPB Q10H [facility] PRN Reason: 8 MG/HR Last Admin: 04/07/17 13:32 Dose: 10 mls/hr Mupirocin (Bactroban Ointment (For Decolonization) -) 1 applic NS BID [facility] Stop: 04/12/17 21:59 Last Admin: 04/07/17 21:42 Dose: 1 applic ASSESSMENT AND PLAN: Severe Anemia s/p PRBC transfusions GI Bleed Acute Kidney Injury Lactic Acidosis Platelet Dysfunction Atrial Fibrillation CAD LV Systolic Dysfunction Pulmonary HTN - monitor H/H - transfuse as needed - lasix post transfusions - check CXR - hold anticoagulation, antiplatelets - protonix gtt - O2 to keep Spo2 >90% - for endoscopy/colonoscopy - DVT prophylaxis - can monitor on telemetry critical care time spent in reviewing chart, evaluating patient and formulating plan 35 min
[2017-04-08] MEDS ORDERED: FUROSEMIDE 40 MG/4 ML INJECTABLE VIAL IVPUSH SCH (13:00)
--- NOTE | 2017-04-08 14:24 | PN ---
Physical Exam: SUBJECTIVE: Patient seen and examined by me. No acute events overnight. Patient states she had no BM overnight. Patient feels much better this AM. Patient has some abdominal pain. Patient denies fever , chills, CP, SOB. OBJECTIVE: Vital Signs Period Temp Pulse Resp BP Sys/Tenorio Pulse Ox Last 24 Hr 97.6 F-98.7 F 71-99 15-19 87-129/51-96 98-100 GENERAL: The patient is awake, alert, and fully oriented, in mild distress. HEAD: Normal with no signs of trauma. EYES: Extraocular movements intact, sclera anicteric, conjunctiva clear. No ptosis. ENT: Oropharynx clear without exudates, moist mucous membranes. NECK: Trachea midline, full range of motion, supple. LUNGS: Breath sounds equal, decreased at bases, clear to auscultation bilaterally, no wheezes, no crackles, no accessory muscle use. HEART: Irregularly irregular rate and rhythm, S1, S2 without murmur, rub or gallop. ABDOMEN: Soft, +LLQ tenderness, nondistended, normoactive bowel sounds, no guarding, no rebound, no hepatosplenomegaly, no masses. EXTREMITIES: 2+ pulses, warm, well-perfused, no edema. NEUROLOGICAL: Cranial nerves II through XII grossly intact. Normal speech, gait not observed. PSYCH: Normal mood, normal affect. SKIN: Warm, dry, normal turgor, no rashes or lesions noted Laboratory Results - last 24 hr 04/07/17 04/07/17 04/07/17 12:15 12:27 13:51 WBC RBC Hgb Hct MCV MCH MCHC RDW Plt Count MPV Neutrophils % Lymphocytes % Monocytes % Eosinophils % Basophils % PT with INR INR PTT (Actin FS) Fibrinogen Sodium Potassium Chloride Carbon Dioxide Anion Gap BUN Creatinine Creat Clearance w eGFR Random Glucose Lactic Acid 2.8 H* Calcium Phosphorus Magnesium Total Bilirubin AST ALT Alkaline Phosphatase Troponin I Total Protein Albumin Ur Leukocyte Esterase Negative Blood Type B POSITIVE Antibody Screen Negative Crossmatch See Detail 04/07/17 04/08/17 04/08/17 18:12 05:45 05:45 WBC 7.3 D RBC 2.87 L D Hgb 7.7 L D Hct 23.2 L D MCV 81.0 MCH 26.7 MCHC 33.0 RDW 15.0 D Plt Count 218 D MPV 7.6 Neutrophils % 79.4 Lymphocytes % 5.9 L D Monocytes % 12.0 H Eosinophils % 2.0 Basophils % 0.7 PT with INR 18.90 H INR 1.67 H PTT (Actin FS) 27.7 Fibrinogen Sodium Potassium Chloride Carbon Dioxide Anion Gap BUN Creatinine Creat Clearance w eGFR Random Glucose Lactic Acid Calcium Phosphorus Magnesium Total Bilirubin AST ALT Alkaline Phosphatase Troponin I < 0.02 Total Protein Albumin Ur Leukocyte Esterase Blood Type Antibody Screen Crossmatch 04/08/17 04/08/17 04/08/17 05:45 05:45 05:45 WBC RBC Hgb Hct MCV MCH MCHC RDW Plt Count MPV Neutrophils % Lymphocytes % Monocytes % Eosinophils % Basophils % PT with INR INR PTT (Actin FS) Fibrinogen 295.0 Sodium 140 Potassium 4.2 D Chloride 103 Carbon Dioxide 25 D Anion Gap 12 BUN 57 H Creatinine 1.8 H D Creat Clearance w eGFR 26.81 Random Glucose 86 D Lactic Acid 1.3 Calcium 8.9 Phosphorus 4.1 D Magnesium 1.8 Total Bilirubin 2.0 H D AST 13 L D ALT 22 Alkaline Phosphatase 52 Troponin I Total Protein 6.0 L Albumin 3.2 L Ur Leukocyte Esterase Blood Type Antibody Screen Crossmatch 04/08/17 05:45 WBC RBC Hgb Hct MCV MCH MCHC RDW Plt Count MPV Neutrophils % Lymphocytes % Monocytes % Eosinophils % Basophils % PT with INR INR PTT (Actin FS) Fibrinogen Sodium Potassium Chloride Carbon Dioxide Anion Gap BUN Creatinine Creat Clearance w eGFR Random Glucose Lactic Acid Calcium Phosphorus Magnesium Total Bilirubin AST ALT Alkaline Phosphatase Troponin I 0.02 Total Protein Albumin Ur Leukocyte Esterase Blood Type Antibody Screen Crossmatch Active Medications Generic Name Dose Route Start Last Admin Trade Name Mason PRN Reason Stop Dose Admin Acetaminophen 650 mg 04/07/17 15:38 Tylenol - PO Q6H PRN FEVER OR PAIN Chlorhexidine Gluconate 1 applic 04/07/17 22:00 04/07/17 21:43 Hibiclens For Decolonization - TP 1 applic HS [facility] Administration Furosemide 40 mg 04/08/17 13:00 Lasix Injection - IVPUSH 04/08/17 18:00 [employer] RECEIVABLE [employer] [facility] Pantoprazole Sodium 80 mg/ 100 mls @ 10 mls/hr 04/07/17 12:15 04/07/17 13:32 Sodium Chloride IVPB 10 mls/hr Q10H [facility] Administration 8 MG/HR Mupirocin 1 applic 04/07/17 22:00 04/07/17 21:42 Bactroban Ointment (For Decolonization) - NS 04/12/17 21:59 1 applic BID [facility] Administration ASSESSMENT/PLAN: 82 yo female with h/o HTN, COPD, Afib on AC, CHF who presented to ED c/o weakness and SOB as well as dark stools for a week admitted to the ICU for GI bleed. CV Atrial Fibrillation CAD Systolic CHF -EKG in AM -Troponins negative x 3 -Hold AC -Dr. Gray on board Resp Pulmonary HTN -Check CXR, patient tachypnic -Maintain O2 sats >90% -IV lasix 40 mg IVP given after 3rd prbc -Incentive spirometer GI GI Bleed -3 units of prbc and 2 units of platelets given -Monitor H/H -Holding AC -IV protonix drip -Patient to go for EGD/Colonoscopy -Dr Minor in board Heme Severe anemia 2/2 to GI bleed -3 units of prbc and 2 units of platelets given -Monitor H/H -Holding AC -Dr. Nelson on board Nephro AMANDA -Resolving -Avoid nephrotoxic medications -Monitor Cr FEN/GI -No fluids -WNL -NPO PPx SCDs for DVT ppx IV protonix for GI ppx Dispo: After EGD/Colonoscopy, patient can be transferred to tele depending on severity of bleed Visit type - Emergency Visit Emergency Visit: Yes ED Registration Date: 04/07/17 Care time: The patient presented to the Emergency Department on the above date and was hospitalized for further evaluation of their emergent condition. - New Patient This patient is new to me today: Yes Date on this admission: 04/08/17 - Critical Care Critical Care patient: Yes Total Critical Care Time (in minutes): 35 Critical Care Statement: The care of this patient involved high complexity decision making to prevent further life threatening deterioration of the patient 's condition and/or to evaluate & treat vital organ system(s) failure or risk of failure.
[2017-04-08 14:31] LABS: HEMATOCRIT 29.2 % (32.4-45.2); HEMOGLOBIN 9.6 GM/dL (10.7-15.3); MCH 26.7 pg (25.7-33.7); MCHC 32.7 g/dl (32.0-36.0); MEAN CELL VOLUME 81.7 fl (80-96); MEAN PLT VOLUME 7.9 fl (7.5-11.1); PLATELET COUNT 206 K/MM3 (134-434); RBC 3.58 M/mm3 (3.60-5.2); RDW 15.1 % (11.6-15.6); WHITE BLOOD COUNT 7.2 K/mm3 (4.0-10.0)
[2017-04-08] MEDS: PANTOPRAZOLE SODIUM 80 MG in SODIUM CHLORIDE 100 ML IVPB SCH (15:05)
--- NOTE | 2017-04-08 18:36 | PN ---
GI Progress Note Subjective: no active bleeding, no melena, adequate rise in hemoglobin - Objective Vital Signs: Vital Signs Temperature 98.9 F 04/08/17 14:00 Pulse Rate 84 04/08/17 16:00 Respiratory Rate 22 04/08/17 16:00 Blood Pressure 121/94 04/08/17 16:00 O2 Sat by Pulse Oximetry (%) 100 04/07/17 20:44 Constitutional: Well Nourished Eyes: Yes: Conjunctiva Clear HENT: Yes: Atraumatic Neck: Yes: Trachea Midline Cardiovascular: Yes: Regular Rate and Rhythm Respiratory: Yes: CTA Bilaterally ...Palpate: Yes: Soft. No: Firm/Rigid, Guarding, Hepatomegaly, Mass, Pulsatile Mass, Splenomegaly, Tenderness, Tenderness, Epigastium Labs: CBC, BMP 04/08/17 14:28 04/08/17 05:45 INR, PTT INR 1.67 (0.82-1.09) H 04/08/17 05:45 Fibrinogen 295.0 mg/dL (238-498) 04/08/17 05:45 Problem List - Problems (1) GI bleed Assessment/Plan: --stable R> will schedule for EGD an colonoscopy t Code(s): K92.2 - GASTROINTESTINAL HEMORRHAGE, UNSPECIFIED Qualifiers: GI bleed type/associated pathology: unspecified gastrointestinal hemorrhage type Qualified Code(s): K92.2 - Gastrointestinal hemorrhage, unspecified
--- NOTE | 2017-04-08 21:16 | EKG ---
Test Reason : Blood Pressure : / mmHG Vent. Rate : 105 BPM Atrial Rate : 357 BPM P-R Int : 000 ms QRS Dur : 084 ms QT Int : 352 ms P-R-T Axes : 090 033 175 degrees QTc Int : 465 ms ATRIAL FLUTTER WITH VARIABLE A-V BLOCK WITH PREMATURE VENTRICULAR OR ABERRANTLY CONDUCTED COMPLEXES CANNOT RULE OUT INFERIOR INFARCT (CITED ON OR BEFORE 08-APR-2017) ABNORMAL ECG WHEN COMPARED WITH ECG OF 07-APR-2017 11:33, ATRIAL FLUTTER HAS REPLACED ATRIAL FIBRILLATION Confirmed by MD ANDREA, BRITTNEY ([id number]) on 04/08/2017 9:15:49 PM Referred By: ATUL VALDES DR Confirmed By:BRITTNEY MENDEZ MD
[2017-04-08] MEDS: MUPIROCIN 2% TOPICAL OINTMENT FOR DECOLONIZATION NS SCH (21:36)
[2017-04-08] MEDS: CHLORHEXIDINE GLUCONATE 4% CLEANSER FOR DECOLONIZATION TP SCH (21:37)
[2017-04-08 21:40] LABS: INR 1.62 (0.82-1.09); PROTHROMBIN TIME (PATIENT) 18.3 SEC (9.98-11.88)
[2017-04-08] MEDS ORDERED: PHYTONADIONE 10 MG/1 ML AMP IVPB ONE (23:06)
[2017-04-09] MEDS: PANTOPRAZOLE SODIUM 80 MG in SODIUM CHLORIDE 100 ML IVPB SCH ×3 (02:33→16:54)
[2017-04-09 07:54] LABS: BASO % 0.8 % (0-2.0); EOS % 3.2 % (0-4.5); HEMATOCRIT 25.9 % (32.4-45.2); HEMOGLOBIN 8.6 GM/dL (10.7-15.3); LYMPH % 10.9 % (8-40); MCH 26.9 pg (25.7-33.7); MCHC 33.3 g/dl (32.0-36.0); MEAN CELL VOLUME 80.9 fl (80-96); MEAN PLT VOLUME 7.9 fl (7.5-11.1); MONO % 16.3 % (3.8-10.2); NEUT % 68.8 % (42.8-82.8); PLATELET COUNT 168 K/MM3 (134-434); RBC 3.21 M/mm3 (3.60-5.2); RDW 15.8 % (11.6-15.6); WHITE BLOOD COUNT 6.8 K/mm3 (4.0-10.0)
[2017-04-09 08:08] LABS: INR 1.5 (0.82-1.09)
[2017-04-09 08:23] LABS: ALBUMIN 2.9 g/dl (3.4-5.0); ANION GAP 10 (8-16); BLOOD UREA NITROGEN 40 mg/dL (7-18); CALCIUM 8.3 mg/dL (8.5-10.1); CHLORIDE 103 mmol/L (98-107); CO2 27 mmol/L (21-32); GLUCOSE,RANDOM 80 mg/dL (74-106); MAGNESIUM 1.5 mg/dL (1.8-2.4); POTASSIUM 3.7 mmol/L (3.5-5.1); SODIUM 140 mmol/L (136-145)
[2017-04-09 08:27] LABS: ALK PHOS 49 U/L (45-117); BILIRUBIN,TOTAL 1.7 mg/dL (0.2-1.0); CREATININE 1.4 mg/dL (0.55-1.02); SGOT/AST 13 U/L (15-37); SGPT/ALT 19 U/L (12-78); TOT PROT 5.5 g/dl (6.4-8.2)
--- NOTE | 2017-04-09 09:52 | PN ---
Physical Exam: SUBJECTIVE: Patient seen and examined at bedside in ICU. Feeling stronger, not as short of breath. OBJECTIVE: Vital Signs Period Temp Pulse Resp BP Sys/Tenorio Pulse Ox Last 24 Hr 97.7 F-99.2 F 77-92 19-22 96-122/55-94 97 GENERAL: The patient is awake, alert, and fully oriented, in no acute distress. LUNGS: CTA HEART: Irregular, S1, S2 without murmur, rub or gallop. ABDOMEN: Soft, nontender, nondistended, normoactive bowel sounds, no guarding, no rebound EXTREMITIES: 2+ pulses, warm, well-perfused, no edema. NEUROLOGICAL: Cranial nerves II through XII grossly intact. Normal speech, gait not observed. Laboratory Results - last 24 hr 04/08/17 04/08/17 14:28 21:00 WBC 7.2 RBC 3.58 L D Hgb 9.6 L D Hct 29.2 L D MCV 81.7 MCH 26.7 MCHC 32.7 RDW 15.1 Plt Count 206 MPV 7.9 Neutrophils % Lymphocytes % Monocytes % Eosinophils % Basophils % PT with INR 18.30 H INR 1.62 H PTT (Actin FS) Sodium Potassium Chloride Carbon Dioxide Anion Gap BUN Creatinine Creat Clearance w eGFR Random Glucose Calcium Phosphorus Magnesium Total Bilirubin AST ALT Alkaline Phosphatase Total Protein Albumin 04/09/17 04/09/17 05:25 07:30 WBC 6.8 RBC 3.21 L Hgb 8.6 L D Hct 25.9 L MCV 80.9 MCH 26.9 MCHC 33.3 RDW 15.8 H Plt Count 168 MPV 7.9 Neutrophils % 68.8 Lymphocytes % 10.9 D Monocytes % 16.3 H Eosinophils % 3.2 Basophils % 0.8 PT with INR INR PTT (Actin FS) Sodium 140 Potassium 3.7 Chloride 103 Carbon Dioxide 27 Anion Gap 10 BUN 40 H D Creatinine 1.4 H D Creat Clearance w eGFR 35.82 Random Glucose 80 Calcium 8.3 L Phosphorus 3.0 D Magnesium 1.5 L Total Bilirubin 1.7 H AST 13 L ALT 19 Alkaline Phosphatase 49 Total Protein 5.5 L Albumin 2.9 L ASSESSMENT/PLAN 82 year-old female with a PMH significant for HTN, HLD, CAD s/p NSTEMI and stent x 1 (09/2016) s/p positive stress MIBI (01/2017), PAD, atrial fibrillation , systolic heart failure, severe pHTN, COPD, and hypothyroidism. Admitted for GI bleed. Severe blood loss anemia GI bleed --transfused 3U PRBC, Hgb 4.5-->9.6 --IV protonix --GI following; will need EGD and colonoscopy --hold anticoagulation CAD s/p NSTEMI s/p stent --continue to hold ASA, Plavix, anti-hypertensives Atrial fibrillation --hold Eliquis Systolic heart failure --lasix PRN Hypertension --hypotensive, hold meds COPD --stable Hypothyroidism --continue levothyroxine Visit type - Emergency Visit Emergency Visit: Yes ED Registration Date: 04/07/17 Care time: The patient presented to the Emergency Department on the above date and was hospitalized for further evaluation of their emergent condition. - New Patient This patient is new to me today: No - Critical Care Critical Care patient: Yes Total Critical Care Time (in minutes): 45 Critical Care Statement: The care of this patient involved high complexity decision making to prevent further life threatening deterioration of the patient 's condition and/or to evaluate & treat vital organ system(s) failure or risk of failure.
[2017-04-09] MEDS ORDERED: PANTOPRAZOLE 40 MG TABLET (FP) PO SCH (10:00)
[2017-04-09] MEDS ORDERED: FUROSEMIDE 40 MG TABLET (FP) PO SCH (10:00)
--- NOTE | 2017-04-09 10:07 | PN ---
Physical Exam: SUBJECTIVE: Patient seen and examined oob to chair. Feeling better, less SOB. OBJECTIVE: Vital Signs Period Temp Pulse Resp BP Sys/[place] Pulse Ox Last 24 Hr 97.7 F-99.2 F 77-92 19-22 96-122/55-94 97 GENERAL: The patient is awake, alert, and fully oriented, in no acute distress. LUNGS: CTA HEART: Irregular, S1, S2 without murmur, rub or gallop. ABDOMEN: Soft, nontender, nondistended, normoactive bowel sounds, no guarding, no rebound EXTREMITIES: 2+ pulses, warm, well-perfused, no edema. NEUROLOGICAL: Cranial nerves II through XII grossly intact. Normal speech, gait not observed. Laboratory Results - last 24 hr 04/08/17 04/08/17 04/09/17 14:28 21:00 05:25 WBC 7.2 RBC 3.58 L D Hgb 9.6 L D Hct 29.2 L D MCV 81.7 MCH 26.7 MCHC 32.7 RDW 15.1 Plt Count 206 MPV 7.9 Neutrophils % Lymphocytes % Monocytes % Eosinophils % Basophils % PT with INR 18.30 H 17.00 H INR 1.62 H 1.50 H PTT (Actin FS) 27.0 Sodium Potassium Chloride Carbon Dioxide Anion Gap BUN Creatinine Creat Clearance w eGFR Random Glucose Calcium Phosphorus Magnesium Total Bilirubin AST ALT Alkaline Phosphatase Total Protein Albumin 04/09/17 04/09/17 05:25 07:30 WBC 6.8 RBC 3.21 L Hgb 8.6 L D Hct 25.9 L MCV 80.9 MCH 26.9 MCHC 33.3 RDW 15.8 H Plt Count 168 MPV 7.9 Neutrophils % 68.8 Lymphocytes % 10.9 D Monocytes % 16.3 H Eosinophils % 3.2 Basophils % 0.8 PT with INR INR PTT (Actin FS) Sodium 140 Potassium 3.7 Chloride 103 Carbon Dioxide 27 Anion Gap 10 BUN 40 H D Creatinine 1.4 H D Creat Clearance w eGFR 35.82 Random Glucose 80 Calcium 8.3 L Phosphorus 3.0 D Magnesium 1.5 L Total Bilirubin 1.7 H AST 13 L ALT 19 Alkaline Phosphatase 49 Total Protein 5.5 L Albumin 2.9 L Active Medications Generic Name Dose Route Start Last Admin Trade Name Freq PRN Reason Stop Dose Admin Acetaminophen 650 mg 04/07/17 15:38 Tylenol - PO Q6H PRN FEVER OR PAIN Atorvastatin Calcium 40 mg 04/09/17 22:00 Lipitor - PO HS [facility] Carvedilol 12.5 mg 04/09/17 10:00 Coreg - PO BID [facility] Dorzolamide HCl 1 drop 04/09/17 10:00 Trusopt 2% OU DAILY [facility] Furosemide 40 mg 04/09/17 10:00 Lasix - PO DAILY [facility] Pantoprazole Sodium 80 mg/ 100 mls @ 10 mls/hr 04/07/17 12:15 04/09/17 02:33 Sodium Chloride IVPB 10 mls/hr Q10H [facility] Administration 8 MG/HR Isosorbide Mononitrate 30 mg 04/09/17 22:00 Imdur - PO HS [facility] Latanoprost 1 drop 04/09/17 22:00 Xalatan 0.005% Eye Drops - OU HS [facility] Levothyroxine Sodium 100 mcg 04/10/17 07:00 Synthroid - PO AM [facility] Pantoprazole Sodium 40 mg 04/09/17 10:00 Protonix - PO DAILY [facility] ASSESSMENT/PLAN 82 year-old female with a PMH significant for HTN, HLD, CAD s/p NSTEMI and stent x 1 (09/2016) s/p positive stress MIBI (01/2017), PAD, atrial fibrillation , systolic heart failure, severe pHTN, COPD, and hypothyroidism. Admitted for GI bleed. Severe acute blood loss anemia GI bleed --transfused 3U PRBC, Hgb 4.5-->9.6; today 8.6 --transfused 2U monodonor platelets because patient on ASA/Plavix --IV protonix --EGD and colonoscopy tomorrow with Dr. Minor --hold anticoagulation AMANDA --Cr 2.5 on admission, 1.4 today; baseline 1.1 CAD s/p NSTEMI s/p EDSON --continue to hold ASA, Plavix --continue Lipitor --resume home isosorbide Hypertension --MAPs consistently >65 --resume carvedilol Atrial fibrillation --carvedilol for rate control --continue to hold Eliquis Systolic heart failure --04/08 CXR shows worsening congestion, Lasix IV 40mg x 1; Lasix PRN --daily weights; down 1.5kg from yesterday --strict I&Os COPD --stable Hypothyroidism --continue levothyroxine Hypomagnesemia --repleted FEN Fluids: PO intake adequate Electrolytes: replete as indicated Nutrition: clears; NPO after midnight DVT prophylaxis: SCDs, hold chemical prophylaxis due to bleeding Dispo: continues to require inpatient care. Full code. Visit type - Emergency Visit Emergency Visit: Yes ED Registration Date: 04/07/17 Care time: The patient presented to the Emergency Department on the above date and was hospitalized for further evaluation of their emergent condition. - New Patient This patient is new to me today: No - Critical Care Critical Care patient: No
[2017-04-09] MEDS ORDERED: FUROSEMIDE 40 MG/4 ML INJECTABLE VIAL IVPUSH ONE (10:30)
[2017-04-09] MEDS ORDERED: MAGNESIUM SULF 50% (8.12 MEQ/2 ML-1 GM VIAL) IVPB ONE (10:36)
[2017-04-09] MEDS: CARVEDILOL 12.5 MG TABLET (FP) PO SCH ×2 (10:39→21:54)
[2017-04-09] MEDS: DORZOLAMIDE 2% HCL OPHTHALMIC SOLUTION 10 ML BOTTLE OU SCH (10:40)
--- NOTE | 2017-04-09 10:46 | PN ---
Progress Note, Physician History of Present Illness: 82-year-old female with past medical history of hypertension, COPD, atrial fibrillation on requests, CHF presents to the emergency department for shortness of breath for several days and most recently dark stools. Patient denies midsternal chest pain. Has been feeling intermittently constipated and dizzy. Chills, eyes fevers, chills, cough, vomiting, dysuria. PMH NSTEMI: (coronary angiogram 10/20/2015: triple vessel disease : Lt Main: 40%; LAD proximal 40%, mid 70%, distal 50%; LCx ostial 80%, proximal 60%, mid 95%, OM2 60 %; Ramus intermedius 70%; RCA proximal 40%, mid 95% hazy lesion, distal 60%; reduced LVEF, with apical akinesis and mid-inferior wall severe hypokinesis);s/ p mid-RCA DEstent 2015; no PCI needed on coronary angiogram 01/2017, but noted severe MR, mild-moderate LV dysfunction, and moderately severe pulmonary HTN; pt refused trans-septal mitral valve replacement), PAD (bilateral SFA 30%) systolic CHF (mild LV dysfunction on 02/2016 ECHO; severe MR) Severe pulmonary HTN Chronic low back pain Hyperlipidemia Hypertension Hypothyroidism PAD scoliosis - Current Medication List Current Medications: Active Medications Acetaminophen (Tylenol -) 650 mg PO Q6H PRN PRN Reason: FEVER OR PAIN Atorvastatin Calcium (Lipitor -) 40 mg PO HS [facility] Carvedilol (Coreg -) 12.5 mg PO BID [facility] Citric Acid/Sodium Citrate (Bicitra Oral Solution -) 30 ml PO ONCE ONE Stop: 04/10/17 12:01 Dorzolamide HCl (Trusopt 2%) 1 drop OU DAILY [facility] Furosemide (Lasix -) 40 mg PO DAILY [facility] Pantoprazole Sodium 80 mg/ (Sodium Chloride) 100 mls @ 10 mls/hr IVPB Q10H [facility] PRN Reason: 8 MG/HR Last Admin: 04/09/17 02:33 Dose: 10 mls/hr Isosorbide Mononitrate (Imdur -) 30 mg PO HS [facility] Latanoprost (Xalatan 0.005% Eye Drops -) 1 drop OU HS [facility] Levothyroxine Sodium (Synthroid -) 100 mcg PO AM [facility] Magnesium Sulfate (Magnesium Sulfate) 2 gm IVPB ONCE ONE Stop: 04/09/17 10:37 Pantoprazole Sodium (Protonix -) 40 mg PO DAILY [facility] Polyethylene Glycol (Miralax (For Bowel Prep) -) 255 gm PO ONCE ONE Stop: 04/09/17 16:01 Sodium Phosphate (Fleet Adult Rectal Enema -) 133 ml GA Q4H [facility] Stop: 04/10/17 04:01 - Objective Vital Signs: Vital Signs Temperature 99.2 F 04/09/17 05:53 Pulse Rate 77 04/09/17 05:53 Respiratory Rate 20 04/09/17 05:53 Blood Pressure 107/55 04/09/17 05:53 O2 Sat by Pulse Oximetry (%) 97 04/08/17 21:00 Eyes: Yes: WNL, Conjunctiva Clear, EOM Intact HENT: Yes: WNL, Atraumatic, Normocephalic Neck: Yes: WNL, Supple, Trachea Midline Cardiovascular: Yes: Pulse Irregular, S1, S2 Respiratory: Yes: WNL, Regular, CTA Bilaterally Gastrointestinal: Yes: WNL, Normal Bowel Sounds Genitourinary: Yes: WNL Musculoskeletal: Yes: WNL Extremities: Yes: WNL Edema: No Integumentary: Yes: WNL Neurological: Yes: WNL, Alert, Oriented ...Motor Strength: WNL Psychiatric: Yes: WNL Labs: CBC, BMP 04/09/17 07:30 04/09/17 05:25 INR, PTT INR 1.50 (0.82-1.09) H 04/09/17 05:25 Fibrinogen 295.0 mg/dL (238-498) 04/08/17 05:45 Problem List - Problems (1) AMANDA (acute kidney injury) Code(s): N17.9 - ACUTE KIDNEY FAILURE, UNSPECIFIED (2) Anemia Code(s): D64.9 - ANEMIA, UNSPECIFIED Qualifiers: Anemia type: unspecified type Qualified Code(s): D64.9 - Anemia, unspecified (3) GI bleed Code(s): K92.2 - GASTROINTESTINAL HEMORRHAGE, UNSPECIFIED Qualifiers: GI bleed type/associated pathology: unspecified gastrointestinal hemorrhage type Qualified Code(s): K92.2 - Gastrointestinal hemorrhage, unspecified (4) Hypotension Code(s): I95.9 - HYPOTENSION, UNSPECIFIED Qualifiers: Hypotension type: unspecified hypotension type Qualified Code(s): I95.9 - Hypotension, unspecified (5) ASHD (arteriosclerotic heart disease) Code(s): I25.10 - ATHSCL HEART DISEASE OF [place] CORONARY ARTERY W/O ANG PCTRS (6) Acute on chronic systolic (congestive) heart failure Code(s): I50.23 - ACUTE ON CHRONIC SYSTOLIC (CONGESTIVE) HEART FAILURE (7) Ankle pain, left Code(s): M25.572 - PAIN IN LEFT ANKLE AND JOINTS OF LEFT FOOT (8) Anxiety Code(s): F41.9 - ANXIETY DISORDER, UNSPECIFIED (9) Atrial fibrillation Code(s): I48.91 - UNSPECIFIED ATRIAL FIBRILLATION Qualifiers: Atrial fibrillation type: unspecified Qualified Code(s): I48.91 - Unspecified atrial fibrillation (10) COPD (chronic obstructive pulmonary disease) Code(s): J44.9 - CHRONIC OBSTRUCTIVE PULMONARY DISEASE, UNSPECIFIED (11) COPD exacerbation Code(s): J44.1 - CHRONIC OBSTRUCTIVE PULMONARY DISEASE W (ACUTE) EXACERBATION (12) COPD mixed type Code(s): J44.9 - CHRONIC OBSTRUCTIVE PULMONARY DISEASE, UNSPECIFIED (13) Chest pain Code(s): R07.9 - CHEST PAIN, UNSPECIFIED Qualifiers: Chest pain type: unspecified Qualified Code(s): R07.9 - Chest pain, unspecified (14) Community acquired pneumonia Code(s): J18.9 - PNEUMONIA, UNSPECIFIED ORGANISM (15) DVT prophylaxis Code(s): [id number] - (16) Elevated glucose Code(s): R73.09 - OTHER ABNORMAL GLUCOSE (17) Elevated lactic acid level Code(s): E87.2 - ACIDOSIS (18) Elevated troponin Code(s): R79.89 - OTHER SPECIFIED ABNORMAL FINDINGS OF BLOOD CHEMISTRY (19) Elevated troponin I level Code(s): R79.89 - OTHER SPECIFIED ABNORMAL FINDINGS OF BLOOD CHEMISTRY (20) [place] cardiac risk >20% in next 10 years Code(s): Z91.89 - OT PERSONAL RISK FACTORS, NOT ELSEWHERE CLASSIFIED (21) Hypertension Code(s): I10 - ESSENTIAL (PRIMARY) HYPERTENSION (22) Hyponatremia Code(s): E87.1 - HYPO-OSMOLALITY AND HYPONATREMIA (23) Lactic acid acidosis Code(s): E87.2 - ACIDOSIS (24) Moderate to severe pulmonary hypertension Code(s): I27.2 - OTHER SECONDARY PULMONARY HYPERTENSION * DO NOT USE * (25) NSTEMI (non-ST elevated myocardial infarction) Code(s): I21.4 - NON-ST ELEVATION (NSTEMI) MYOCARDIAL INFARCTION (26) Plantar fasciitis Code(s): M72.2 - PLANTAR FASCIAL FIBROMATOSIS (27) Pneumonia Code(s): J18.9 - PNEUMONIA, UNSPECIFIED ORGANISM (28) Respiratory distress Code(s): R06.00 - DYSPNEA, UNSPECIFIED (29) Respiratory failure Code(s): J96.90 - RESPIRATORY FAILURE, UNSP, UNSP W HYPOXIA OR HYPERCAPNIA (30) Sepsis Code(s): A41.9 - SEPSIS, UNSPECIFIED ORGANISM (31) Sepsis due to pneumonia Code(s): J18.9 - PNEUMONIA, UNSPECIFIED ORGANISM; A41.9 - SEPSIS, UNSPECIFIED ORGANISM Assessment/Plan AF on AC GI bleed NSTEMI: (coronary angiogram 10/20/2015: triple vessel disease : Lt Main: 40%; LAD proximal 40%, mid 70%, distal 50%; LCx ostial 80%, proximal 60%, mid 95%, OM2 60 %; Ramus intermedius 70%; RCA proximal 40%, mid 95% hazy lesion, distal 60%; reduced LVEF, with apical akinesis and mid-inferior wall severe hypokinesis); PAD (bilateral SFA 30%) systolic CHF (mild LV dysfunction on 02/2016 ECHO; severe MR) Severe pulmonary HTN Chronic low back pain Hyperlipidemia Hypertension Hypothyroidism PAD scoliosis - Problems (1) Severe mitral regurgitation Assessment/Plan: 01/2017 coronary angiogram showed triple vessel CAD (no PCI required); hx mid- RCA-->drug-eleuting stent 2015. Pt refused trans-septal mitral valve replacement at the time.. She has been on furosemide, but this has been held presently due to marked rise in BUN/Cr,, and hypotension. F/u CXR;Is and Os, daily weight, BUN/Cr, electrolytes. Code(s): I34.0 - NONRHEUMATIC MITRAL (VALVE) INSUFFICIENCY (2) Anemia Code(s): D64.9 - ANEMIA, UNSPECIFIED Qualifiers: Anemia type: unspecified type Qualified Code(s): D64.9 - Anemia, unspecified (3) GI bleed Assessment/Plan: F/u with GI (Dr. Minor). From a cardiac perspective, there are no absolute contraindications for Ms. Leiva to undergo EGD and colonoscopy. Code(s): K92.2 - GASTROINTESTINAL HEMORRHAGE, UNSPECIFIED Qualifiers: GI bleed type/associated pathology: unspecified gastrointestinal hemorrhage type Qualified Code(s): K92.2 - Gastrointestinal hemorrhage, unspecified (4) Hypotension Assessment/Plan: all antihypertensives and CHF meds held; PRBCs, fluids as [id number]. B/u serial BP and HR, BUN/Cr, is and Os, daily weight, electrolytes. Code(s): I95.9 - HYPOTENSION, UNSPECIFIED Qualifiers: Hypotension type: unspecified hypotension type Qualified Code(s): I95.9 - Hypotension, unspecified (5) ASHD (arteriosclerotic heart disease) Assessment/Plan: cc time spent assessing pt and furmulating plan: 45 mnutes. Code(s): I25.10 - ATHSCL HEART DISEASE OF [place] CORONARY ARTERY W/O ANG PCTRS (6) Acute on chronic systolic (congestive) heart failure Assessment/Plan: f/u results of most recently coronary angiogram, LV gram, and ECHO. Medications held presently due to hypotension. Receiving PRBCs; bring Hct to 30. Code(s): I50.23 - ACUTE ON CHRONIC SYSTOLIC (CONGESTIVE) HEART FAILURE (7) Anxiety Code(s): F41.9 - ANXIETY DISORDER, UNSPECIFIED (8) Atrial fibrillation Assessment/Plan: anticoagulation and antiplatelets held pending GI workup for source of bleed. Code(s): I48.91 - UNSPECIFIED ATRIAL FIBRILLATION Qualifiers: Atrial fibrillation type: unspecified Qualified Code(s): I48.91 - Unspecified atrial fibrillation (9) COPD (chronic obstructive pulmonary disease) Code(s): J44.9 - CHRONIC OBSTRUCTIVE PULMONARY DISEASE, UNSPECIFIED (10) Moderate to severe pulmonary hypertension Code(s): I27.2 - OTHER SECONDARY PULMONARY HYPERTENSION * DO NOT USE * Assessment/Plan
--- NOTE | 2017-04-09 11:07 | PN ---
Progress Note, Physician History of Present Illness: PULMONARY ALERT,LESS DYSPNEIC,-CP,-COUGH - Current Medication List Current Medications: Active Medications Acetaminophen (Tylenol -) 650 mg PO Q6H PRN PRN Reason: FEVER OR PAIN Atorvastatin Calcium (Lipitor -) 40 mg PO HS [facility] Carvedilol (Coreg -) 12.5 mg PO BID [facility] Last Admin: 04/09/17 10:39 Dose: 12.5 mg Citric Acid/Sodium Citrate (Bicitra Oral Solution -) 30 ml PO ONCE ONE Stop: 04/10/17 12:01 Dorzolamide HCl (Trusopt 2%) 1 drop OU DAILY [facility] Last Admin: 04/09/17 10:40 Dose: 1 drp Furosemide (Lasix -) 40 mg PO DAILY [facility] Last Admin: 04/09/17 10:39 Dose: 40 mg Pantoprazole Sodium 80 mg/ (Sodium Chloride) 100 mls @ 10 mls/hr IVPB Q10H [facility] PRN Reason: 8 MG/HR Last Admin: 04/09/17 02:33 Dose: 10 mls/hr Isosorbide Mononitrate (Imdur -) 30 mg PO HS [facility] Latanoprost (Xalatan 0.005% Eye Drops -) 1 drop OU HS [facility] Levothyroxine Sodium (Synthroid -) 100 mcg PO AM [facility] Pantoprazole Sodium (Protonix -) 40 mg PO DAILY [facility] Last Admin: 04/09/17 10:39 Dose: 40 mg Polyethylene Glycol (Miralax (For Bowel Prep) -) 255 gm PO ONCE ONE Stop: 04/09/17 16:01 Sodium Phosphate (Fleet Adult Rectal Enema -) 133 ml ND Q4H [facility] Stop: 04/10/17 04:01 - Objective Vital Signs: Vital Signs Temperature 99.2 F 04/09/17 05:53 Pulse Rate 77 04/09/17 05:53 Respiratory Rate 20 04/09/17 05:53 Blood Pressure 107/55 04/09/17 05:53 O2 Sat by Pulse Oximetry (%) 97 04/08/17 21:00 Constitutional: Yes: Calm, Thin Eyes: Yes: WNL HENT: Yes: WNL Neck: Yes: WNL Cardiovascular: Yes: Pulse Irregular, S1, S2 Respiratory: Yes: Rales (BIBASILAR RALES) Gastrointestinal: Yes: Normal Bowel Sounds, Soft Extremities: Yes: WNL Edema: No Labs: CBC, BMP 04/09/17 07:30 04/09/17 05:25 INR, PTT INR 1.50 (0.82-1.09) H 04/09/17 05:25 Fibrinogen 295.0 mg/dL (238-498) 04/08/17 05:45 - ....Imaging Chest X-ray: Report Reviewed, Image Reviewed (INCREASED CONGESTION BILATERALLY) Assessment/Plan ASSESSMENT AND PLAN: Severe Anemia s/p PRBC transfusions GI Bleed Acute Kidney Injury Lactic Acidosis Platelet Dysfunction Atrial Fibrillation CAD COPD LUNG NODULE LV Systolic Dysfunction Pulmonary HTN - monitor H/H - transfuse as needed - lasix - inhaled bronchodilators prn - F/U CXRs - hold anticoagulation, antiplatelets - protonix gtt - O2 to keep Spo2 >90% - DVT prophylaxis DR JEFFERS
[2017-04-09] MEDS ORDERED: MAGNESIUM SULF 50% (8.12 MEQ/2 ML-1 GM VIAL) ONE (13:53)
[2017-04-09] MEDS ORDERED: POLYETHYLENE GLYCOL 3350 255 GM BTL PO ONE (16:00)
[2017-04-09] MEDS: SODIUM PHOSPHATE/NA BIPHOS 133 ML ENEMA PR SCH ×2 (17:02→20:09)
[2017-04-09] MEDS: ISOSORBIDE MONONITRATE 30 MG TAB.SR.24H (FP) PO SCH ×2 (21:52→21:54)
[2017-04-09] MEDS: ATORVASTATIN CA 40 MG TABLET (FP) PO SCH ×2 (21:52→21:54)
[2017-04-09] MEDS: LATANOPROST 0.005% OPHTH SOLN 2.5ML BOTTLE OU SCH (21:55)
[2017-04-09] MEDS ORDERED: TRAVOPROST OD SCH (22:00)
[2017-04-10] MEDS: SODIUM PHOSPHATE/NA BIPHOS 133 ML ENEMA PR SCH ×2 (00:29→03:31)
[2017-04-10] MEDS: PANTOPRAZOLE SODIUM 80 MG in SODIUM CHLORIDE 100 ML IVPB SCH ×5 (01:15→20:19)
[2017-04-10] MEDS: LEVOTHYROXINE NA 100 MCG TABLET (FP) PO SCH (06:03)
[2017-04-10] MEDS: DORZOLAMIDE 2% HCL OPHTHALMIC SOLUTION 10 ML BOTTLE OU SCH (09:31)
[2017-04-10] MEDS: CARVEDILOL 12.5 MG TABLET (FP) PO SCH ×2 (09:31→21:18)
[2017-04-10 11:42] LABS: BASO % 0.8 % (0-2.0); EOS % 5.3 % (0-4.5); HEMATOCRIT 25.4 % (32.4-45.2); HEMOGLOBIN 8.4 GM/dL (10.7-15.3); MCHC 33.1 g/dl (32.0-36.0); MEAN CELL VOLUME 81.6 fl (80-96); MEAN PLT VOLUME 7.6 fl (7.5-11.1); MONO % 13.6 % (3.8-10.2); NEUT % 72.3 % (42.8-82.8); PLATELET COUNT 162 K/MM3 (134-434); RBC 3.11 M/mm3 (3.60-5.2); RDW 16.1 % (11.6-15.6); WHITE BLOOD COUNT 5.3 K/mm3 (4.0-10.0)
[2017-04-10 11:58] LABS: ANION GAP 9 (8-16); BLOOD UREA NITROGEN 31 mg/dL (7-18); CALCIUM 7.8 mg/dL (8.5-10.1); CHLORIDE 101 mmol/L (98-107); CO2 27 mmol/L (21-32); GLUCOSE,RANDOM 102 mg/dL (74-106); SODIUM 137 mmol/L (136-145)
[2017-04-10 12:00] LABS: CREATININE 1.1 mg/dL (0.55-1.02)
[2017-04-10] MEDS ORDERED: CITRIC ACID/SODIUM CITRATE 30 ML UNIT-DOSE CUP PO ONE (12:00)
--- NOTE | 2017-04-10 12:00 | PN ---
Progress Note, Physician Chief Complaint: Pt A&Ox3;asymptomatic. History of Present Illness: The patient is an 82 year old white female with a history of triple vessel CAD ( s/p mid-RCA DEstent 2015; no PCI needed on coronary angiogram 01/2017, but noted severe MR, mild-moderate LV dysfunction, and moderately severe pulmonary HTN; pt refused trans-apical mitral valve replacement), afib, COPD, HTN, HLD, who presents for evaluation of generalized weakness and shortness of breath. The patient reports a several day history of generalized weakness with associated shortness of breath at rest worse with exertion. She noted some dizziness and worsening symptoms earlier this morning prompting her presentation to the ED for evaluation. She notes that she has been constipated over the past few days, but noted some dark black stools yesterday evening. She states that she has had similar symptoms in the past. She denies any headache, cough, fevers, chest pain, abdominal pain, nausea, vomiting, or changes with urination. She notes that she has been very cold over the past few days. She denies any recent weight gain or leg swelling. - Current Medication List Current Medications: Active Medications Acetaminophen (Tylenol -) 650 mg PO Q6H PRN PRN Reason: FEVER OR PAIN Atorvastatin Calcium (Lipitor -) 40 mg PO HS [facility] Last Admin: 04/09/17 21:54 Dose: 40 mg Carvedilol (Coreg -) 12.5 mg PO BID [facility] Last Admin: 04/10/17 09:31 Dose: 12.5 mg Citric Acid/Sodium Citrate (Bicitra Oral Solution -) 30 ml PO ONCE ONE Stop: 04/10/17 12:01 Dorzolamide HCl (Trusopt 2%) 1 drop OU DAILY [facility] Last Admin: 04/10/17 09:31 Dose: 1 drp Pantoprazole Sodium 80 mg/ (Sodium Chloride) 100 mls @ 10 mls/hr IVPB Q10H [facility] PRN Reason: 8 MG/HR Last Admin: 04/10/17 04:24 Dose: 10 mls/hr Isosorbide Mononitrate (Imdur -) 30 mg PO HS [facility] Last Admin: 04/09/17 21:54 Dose: 30 mg Latanoprost (Xalatan 0.005% Eye Drops -) 1 drop OU HS [facility] Last Admin: 04/09/17 21:55 Dose: 1 drop Levothyroxine Sodium (Synthroid -) 100 mcg PO AM [facility] Last Admin: 04/10/17 06:03 Dose: 100 mcg - Objective Vital Signs: Vital Signs Temperature 98.4 F 04/10/17 05:00 Pulse Rate 64 04/10/17 05:00 Respiratory Rate 18 04/10/17 05:00 Blood Pressure 101/54 04/10/17 05:00 O2 Sat by Pulse Oximetry (%) 97 04/09/17 21:00 Constitutional: Yes: Thin Eyes: Yes: WNL HENT: Yes: WNL Neck: Yes: WNL Cardiovascular: Yes: Pulse Irregular, S1 (varies in intensity) Respiratory: Yes: Regular Gastrointestinal: Yes: Soft ...Rectal Exam: Yes: Deferred Genitourinary: No: Anuria Breast(s): Yes: WNL Musculoskeletal: Yes: Muscle Weakness Extremities: Yes: Cool Edema: No Peripheral Pulses WNL: Yes Integumentary: Yes: WNL Neurological: Yes: WNL Psychiatric: Yes: WNL Labs: CBC, BMP 04/10/17 11:15 INR, PTT INR 1.50 (0.82-1.09) H 04/09/17 05:25 Fibrinogen 295.0 mg/dL (238-498) 04/08/17 05:45 - ....Imaging Other: Image Reviewed (AF; controlled VR) Problem List - Problems (1) Severe mitral regurgitation Assessment/Plan: 01/2017 coronary angiogram showed triple vessel CAD (no PCI required); hx mid- RCA-->drug-eleuting stent 2015. Pt refused trans-apicall mitral valve replacement at the time.. She has been on furosemide, but this has been held presently due to marked rise in BUN/Cr,, and hypotension. F/u CXR;Is and Os, daily weight, BUN/Cr, electrolytes. Code(s): I34.0 - NONRHEUMATIC MITRAL (VALVE) INSUFFICIENCY (2) Anemia Assessment/Plan: awaits GI workup. Code(s): D64.9 - ANEMIA, UNSPECIFIED Qualifiers: Anemia type: unspecified type Qualified Code(s): D64.9 - Anemia, unspecified (3) GI bleed Code(s): K92.2 - GASTROINTESTINAL HEMORRHAGE, UNSPECIFIED Qualifiers: GI bleed type/associated pathology: unspecified gastrointestinal hemorrhage type Qualified Code(s): K92.2 - Gastrointestinal hemorrhage, unspecified (4) Hypotension Code(s): I95.9 - HYPOTENSION, UNSPECIFIED Qualifiers: Hypotension type: unspecified hypotension type Qualified Code(s): I95.9 - Hypotension, unspecified (5) ASHD (arteriosclerotic heart disease) Code(s): I25.10 - ATHSCL HEART DISEASE OF [place] CORONARY ARTERY W/O ANG PCTRS (6) Acute on chronic systolic (congestive) heart failure Code(s): I50.23 - ACUTE ON CHRONIC SYSTOLIC (CONGESTIVE) HEART FAILURE (7) Anxiety Code(s): F41.9 - ANXIETY DISORDER, UNSPECIFIED (8) Atrial fibrillation Code(s): I48.91 - UNSPECIFIED ATRIAL FIBRILLATION Qualifiers: Atrial fibrillation type: unspecified Qualified Code(s): I48.91 - Unspecified atrial fibrillation (9) COPD (chronic obstructive pulmonary disease) Code(s): J44.9 - CHRONIC OBSTRUCTIVE PULMONARY DISEASE, UNSPECIFIED (10) Moderate to severe pulmonary hypertension Code(s): I27.2 - OTHER SECONDARY PULMONARY HYPERTENSION * DO NOT USE *
[2017-04-10 13:00] LABS: POTASSIUM 2.9 mmol/L (3.5-5.1)
--- NOTE | 2017-04-10 13:14 | PN ---
Physical Exam: SUBJECTIVE: Patient seen and examined. She has no chest pain, sob, tachycardia. + diarrhea OBJECTIVE: Vital Signs Period Temp Pulse Resp BP Sys/Tenorio Pulse Ox Last 24 Hr 97.5 F-99.0 F 64-95 18-20 100-119/54-68 97-98 PE Neuro: alert, awake, cn 2-12intact Pulm: basilar crackles CV: s1 s2 irregular rhythm, regular rate Abd: s nt nd +bs Ext: Warm, no le edema Laboratory Results - last 24 hr 04/07/17 04/10/17 04/10/17 12:15 11:15 11:15 WBC 5.3 RBC 3.11 L Hgb 8.4 L Hct 25.4 L MCV 81.6 MCH 27.0 MCHC 33.1 RDW 16.1 H Plt Count 162 MPV 7.6 Neutrophils % 72.3 Lymphocytes % 8.0 D Monocytes % 13.6 H Eosinophils % 5.3 H Basophils % 0.8 Sodium 137 Potassium 2.9 L* D Chloride 101 Carbon Dioxide 27 Anion Gap 9 BUN 31 H D Creatinine 1.1 H D Random Glucose 102 D Calcium 7.8 L Magnesium 2.0 D Blood Type B POSITIVE Antibody Screen Negative Crossmatch See Detail Active Medications Generic Name Dose Route Start Last Admin Trade Name Freq PRN Reason Stop Dose Admin Acetaminophen 650 mg 04/07/17 15:38 Tylenol - PO Q6H PRN FEVER OR PAIN Atorvastatin Calcium 40 mg 04/09/17 22:00 04/09/17 21:54 Lipitor - PO 40 mg HS [facility] Administration Carvedilol 12.5 mg 04/09/17 10:00 04/10/17 09:31 Coreg - PO 12.5 mg BID [facility] Administration Dorzolamide HCl 1 drop 04/09/17 10:00 04/10/17 09:31 Trusopt 2% OU 1 drp DAILY [facility] Administration Pantoprazole Sodium 80 mg/ 100 mls @ 10 mls/hr 04/07/17 12:15 04/10/17 12:45 Sodium Chloride IVPB 10 mls/hr Q10H [facility] Administration 8 MG/HR Isosorbide Mononitrate 30 mg 04/09/17 22:00 04/09/17 21:54 Imdur - PO 30 mg HS [facility] Administration Latanoprost 1 drop 04/09/17 22:00 04/09/17 21:55 Xalatan 0.005% Eye Drops - OU 1 drop HS [facility] Administration Levothyroxine Sodium 100 mcg 04/10/17 07:00 04/10/17 06:03 Synthroid - PO 100 mcg AM [facility] Administration Potassium Chloride 40 meq 04/10/17 13:15 K-Dur - PO 04/10/17 13:16 ONCE ONE Potassium Chloride 40 meq 04/10/17 17:00 K-Dur - PO 04/10/17 17:01 ONCE ONE Assessment: 82 year old female with a PMH significant for HTN, HLD, CAD s/p NSTEMI and stent x 1 (09/2016) s/p positive stress MIBI (01/2017), PAD, atrial fibrillation, systolic heart failure, severe pHTN, COPD, and hypothyroidism. Admitted for GI bleed. Plan: 1. Severe acute blood loss anemia - Due to GI bleed - Transfused 3U PRBC, hgb stable today - Transfused 2U monodonor platelets because patient on ASA/Plavix - Continue protonix gtt - Hold AC 2. GI bleed - EGD and colonoscopy tomorrow with Dr. Minor 3. AMANDA - At baseline today 4. Hypokalemia - Replete with PO and IV - Start gentle fluids w/potassium until after EGD, will stop after 5. CAD s/p NSTEMI s/p EDSON - Continue to hold ASA, Plavix - Continue Lipitor - Isosorbide 30mg Hs 6. Hypertension - Stable - Carvedilol 12.5mg BID 7. Atrial fibrillation - Rate controlled on Coreg - Hold eliquis 8. Systolic heart failure/Pulm HTN - No acute exacerbation today - 04/08 CXR shows worsening congestion s/p lasix - Lasix PRN 9. COPD - Stable 10. Hypothyroidism - Continue levothyroxine 11. Hypomagnesemia - Resolved 12. Lactic acidosis - Due to GI bleed - Resolved 13. Right lung nodule, 5mm - Pulm following DVT prophylaxis: SCDs, hold chemical prophylaxis due to bleeding Visit type - Emergency Visit Emergency Visit: Yes ED Registration Date: 04/07/17 Care time: The patient presented to the Emergency Department on the above date and was hospitalized for further evaluation of their emergent condition. - New Patient This patient is new to me today: Yes Date on this admission: 04/10/17 - Critical Care Critical Care patient: No
[2017-04-10] MEDS ORDERED: POTASSIUM CHLORIDE TABS 20 MEQ TABLET.ER (FP) PO ONE ×2 (13:15→17:00)
[2017-04-10] MEDS: SODIUM CHLORIDE 0.9%/KCL 20 MEQ/1,000 ML INFUS.BAG IV SCH (13:30)
--- NOTE | 2017-04-10 13:51 | PN ---
Progress Note (short form) - Note Progress Note: Feels less SOB. Some dry cough. No acute events overnight. Intake & Output 04/07/17 04/08/17 04/09/17 04/10/17 23:59 23:59 23:59 23:59 Intake Total 700 1570 1220 350 Output Total 1700 Balance 700 -130 1220 350 Weight 115 lb 117 lb 4.8 oz 113 lb 12.8 oz 114 lb 6 oz Last Vital Signs Temp Pulse Resp BP Pulse Ox 98.4 F 64 18 101/54 98 04/10/17 05:00 04/10/17 05:00 04/10/17 12:31 04/10/17 05:00 04/10/17 12:31 Active Medications Acetaminophen (Tylenol -) 650 mg PO Q6H PRN PRN Reason: FEVER OR PAIN Atorvastatin Calcium (Lipitor -) 40 mg PO HS [facility] Last Admin: 04/09/17 21:54 Dose: 40 mg Carvedilol (Coreg -) 12.5 mg PO BID [facility] Last Admin: 04/10/17 09:31 Dose: 12.5 mg Dorzolamide HCl (Trusopt 2%) 1 drop OU DAILY [facility] Last Admin: 04/10/17 09:31 Dose: 1 drp Pantoprazole Sodium 80 mg/ (Sodium Chloride) 100 mls @ 10 mls/hr IVPB Q10H [facility] PRN Reason: 8 MG/HR Last Admin: 04/10/17 12:45 Dose: 10 mls/hr Potassium Chloride (Potassium Chloride 10 Meq Premix Ivpb -) 10 meq in 100 mls @ 100 mls/hr IVPB Q60M [facility] Stop: 04/10/17 15:14 Potassium Chloride/Sodium Chloride (Ns+20 Meq Kcl -) 20 meq in 1,000 mls @ 75 mls/hr IV ASDIR [facility] Isosorbide Mononitrate (Imdur -) 30 mg PO HS [facility] Last Admin: 04/09/17 21:54 Dose: 30 mg Latanoprost (Xalatan 0.005% Eye Drops -) 1 drop OU HS [facility] Last Admin: 04/09/17 21:55 Dose: 1 drop Levothyroxine Sodium (Synthroid -) 100 mcg PO AM [facility] Last Admin: 04/10/17 06:03 Dose: 100 mcg Potassium Chloride (K-Dur -) 40 meq PO ONCE ONE Stop: 04/10/17 17:01 Constitutional: Yes: NAD, Thin Eyes: Yes: WNL HENT: Yes: WNL Neck: Yes: WNL Cardiovascular: Yes: Pulse Irregular, S1, S2 Respiratory: Yes: Bibasilar Rales Gastrointestinal: Yes: Normal Bowel Sounds, Soft Extremities: Yes: WNL Edema: No Labs: Assessment/Plan Severe Anemia s/p PRBC transfusions GI Bleed Acute Kidney Injury Lactic Acidosis Platelet Dysfunction Atrial Fibrillation CAD COPD 5 mm RIGHT LUNG NODULE LV Systolic Dysfunction Pulmonary HTN - monitor H/H - Normal transfusion thresholds - lasix - inhaled bronchodilators prn - protonix - O2 to keep Spo2 >90% - Mechanical VTE prophylaxis Dr Sweet
[2017-04-10] MEDS ORDERED: POTASSIUM CHLORIDE 20 MEQ in SODIUM CHLORIDE 250 ML IVPB ONE (14:45)
[2017-04-10] MEDS: KCL 10 MEQ IVPB 10 MEQ/100 ML INFUS.BAG IVPB SCH (15:27)
[2017-04-10] MEDS ORDERED: ONDANSETRON 4 MG/2 ML VIAL IVPUSH PRN (19:05)
--- NOTE | 2017-04-10 20:53 | PN ---
Progress Note (short form) - Note Progress Note: Patient seen and examined s/p colonoscopy feels well Last Vital Signs Temp Pulse Resp BP Pulse Ox 97.7 F 101 H 20 105/54 100 04/10/17 20:17 04/10/17 20:17 04/10/17 20:17 04/10/17 20:17 04/10/17 19:45 Cor: RSR, No murmurs, No gallops Lungs: Clear to P&A Abd: Soft, Normal bowel sounds, No organomegaly Ext:No significant edema Abnormal Lab Results 04/07/17 04/10/17 04/10/17 12:15 11:15 11:15 RBC 3.11 L Hgb 8.4 L Hct 25.4 L RDW 16.1 H Monocytes % 13.6 H Eosinophils % 5.3 H Potassium 2.9 L* D BUN 31 H D Creatinine 1.1 H D Calcium 7.8 L Crossmatch See Detail Active Medications Acetaminophen (Tylenol -) 650 mg PO Q6H PRN PRN Reason: FEVER OR PAIN Atorvastatin Calcium (Lipitor -) [address] [facility] Last Admin: 04/09/17 21:54 Dose: 40 mg Carvedilol (Coreg -) 12.[address] [facility] Last Admin: 04/10/17 09:31 Dose: 12.5 mg Dorzolamide HCl (Trusopt 2%) [address] [facility] Last Admin: 04/10/17 09:31 Dose: 1 drp Pantoprazole Sodium 80 mg/ (Sodium Chloride) 100 mls @ 10 mls/hr IVPB Q10H [facility] PRN Reason: 8 MG/HR Last Admin: 04/10/17 20:19 Dose: 10 mls/hr Potassium Chloride/Sodium Chloride (Ns+20 Meq Kcl -) 20 meq in 1,000 mls @ 75 mls/hr IV ASDIR [facility] Last Admin: 04/10/17 13:30 Dose: 75 mls/hr Isosorbide Mononitrate (Imdur -) [address] [facility] Last Admin: 04/09/17 21:54 Dose: 30 mg Latanoprost (Xalatan 0.005% Eye Drops -) [address] [facility] Last Admin: 04/09/17 21:55 Dose: 1 drop Levothyroxine Sodium (Synthroid -) [address] [facility] Last Admin: 12/21/17 06:03 Dose: 100 mcg A/P 82 y/o patient with Severe Anemia s/p PRBC transfusions GI Bleed on eliquis/plavix/asa--off of them Acute Kidney Injury Lactic Acidosis Atrial Fibrillation CAD COPD 5 mm RIGHT LUNG NODULE LV Systolic Dysfunction Pulmonary HTN stable hgb await rep[orts of gi w/u
[2017-04-10] MEDS: ISOSORBIDE MONONITRATE 30 MG TAB.SR.24H (FP) PO SCH (21:18)
[2017-04-10] MEDS: ATORVASTATIN CA 40 MG TABLET (FP) PO SCH (21:18)
[2017-04-10] MEDS: LATANOPROST 0.005% OPHTH SOLN 2.5ML BOTTLE OU SCH (21:19)
[2017-04-11] MEDS: PANTOPRAZOLE SODIUM 80 MG in SODIUM CHLORIDE 100 ML IVPB SCH ×2 (06:09→17:46)
[2017-04-11] MEDS: LEVOTHYROXINE NA 100 MCG TABLET (FP) PO SCH (06:10)
[2017-04-11 07:54] LABS: BASO % 0.9 % (0-2.0); EOS % 4.6 % (0-4.5); HEMATOCRIT 23.3 % (32.4-45.2); HEMOGLOBIN 7.7 GM/dL (10.7-15.3); LYMPH % 12.9 % (8-40); MCH 27.6 pg (25.7-33.7); MEAN CELL VOLUME 83.6 fl (80-96); MEAN PLT VOLUME 7.9 fl (7.5-11.1); MONO % 14.8 % (3.8-10.2); NEUT % 66.8 % (42.8-82.8); PLATELET COUNT 141 K/MM3 (134-434); RBC 2.78 M/mm3 (3.60-5.2); RDW 16.1 % (11.6-15.6); WHITE BLOOD COUNT 5.7 K/mm3 (4.0-10.0)
[2017-04-11 08:35] LABS: CHLORIDE 103 mmol/L (98-107); POTASSIUM 3.8 mmol/L (3.5-5.1); SODIUM 138 mmol/L (136-145)
[2017-04-11 08:42] LABS: ANION GAP 12 (8-16); BLOOD UREA NITROGEN 25 mg/dL (7-18); CALCIUM 8.1 mg/dL (8.5-10.1); CO2 23 mmol/L (21-32); CREATININE 1.1 mg/dL (0.55-1.02); GLUCOSE,RANDOM 77 mg/dL (74-106)
[2017-04-11] MEDS: CARVEDILOL 12.5 MG TABLET (FP) PO SCH ×2 (09:52→22:17)
[2017-04-11] MEDS: DORZOLAMIDE 2% HCL OPHTHALMIC SOLUTION 10 ML BOTTLE OU SCH (09:52)
--- NOTE | 2017-04-11 11:19 | PN ---
Progress Note, Physician History of Present Illness: PULMONARY ALERT,NAD,-CP,-SOB - Current Medication List Current Medications: Active Medications Acetaminophen (Tylenol -) 650 mg PO Q6H PRN PRN Reason: FEVER OR PAIN Atorvastatin Calcium (Lipitor -) 40 mg PO HS [facility] Last Admin: 04/10/17 21:18 Dose: 40 mg Carvedilol (Coreg -) 12.5 mg PO BID [facility] Last Admin: 04/11/17 09:52 Dose: 12.5 mg Dorzolamide HCl (Trusopt 2%) 1 drop OU DAILY [facility] Last Admin: 04/11/17 09:52 Dose: 1 drp Pantoprazole Sodium 80 mg/ (Sodium Chloride) 100 mls @ 10 mls/hr IVPB Q10H [facility] PRN Reason: 8 MG/HR Last Admin: 04/11/17 06:09 Dose: 10 mls/hr Potassium Chloride/Sodium Chloride (Ns+20 Meq Kcl -) 20 meq in 1,000 mls @ 75 mls/hr IV ASDIR [facility] Last Admin: 04/10/17 13:30 Dose: 75 mls/hr Isosorbide Mononitrate (Imdur -) 30 mg PO HS [facility] Last Admin: 04/10/17 21:18 Dose: 30 mg Latanoprost (Xalatan 0.005% Eye Drops -) 1 drop OU HS [facility] Last Admin: 04/10/17 21:19 Dose: 1 drop Levothyroxine Sodium (Synthroid -) 100 mcg PO AM [facility] Last Admin: 04/11/17 06:10 Dose: 100 mcg - Objective Vital Signs: Vital Signs Temperature 97.9 F 04/11/17 05:23 Pulse Rate 100 H 04/11/17 05:23 Respiratory Rate 18 04/11/17 05:23 Blood Pressure 102/65 04/11/17 05:23 O2 Sat by Pulse Oximetry (%) 95 04/10/17 21:00 Constitutional: Yes: Well Nourished, Calm Eyes: Yes: WNL HENT: Yes: WNL Neck: Yes: WNL Cardiovascular: Yes: Pulse Irregular, S1, S2 Respiratory: Yes: CTA Bilaterally Gastrointestinal: Yes: Normal Bowel Sounds, Soft Extremities: Yes: WNL Edema: No Labs: CBC, BMP 04/11/17 06:30 04/11/17 05:05 INR, PTT INR 1.50 (0.82-1.09) H 04/09/17 05:25 Fibrinogen 295.0 mg/dL (238-498) 04/08/17 05:45 Assessment/Plan ASSESSMENT AND PLAN: Severe Anemia s/p PRBC transfusions GI Bleed Acute Kidney Injury Lactic Acidosis Platelet Dysfunction Atrial Fibrillation CAD COPD LUNG NODULE LV Systolic Dysfunction Pulmonary HTN - monitor H/H - transfuse as needed - inhaled bronchodilators prn - F/U CXRs - protonix gtt - O2 to keep Spo2 >90% - DVT prophylaxis DR JEFFERS
[2017-04-11] MEDS: SODIUM CHLORIDE 0.9%/KCL 20 MEQ/1,000 ML INFUS.BAG IV SCH (14:00)
--- NOTE | 2017-04-11 17:04 | PN ---
Physical Exam: SUBJECTIVE: Patient seen and examined. She is feeling better, oob to chair, denies further bleeding. Still someone weak OBJECTIVE: Vital Signs Period Temp Pulse Resp BP Sys/Tenorio Pulse Ox Last 24 Hr 97.4 F-98.4 F 81-111 15-24 95-120/54-80 95-100 PE Neuro: alert, awake, cn 2-12intact Pulm: basilar crackles CV: s1 s2 irregular rhythm, regular rate Abd: s nt nd +bs Ext: Warm, no le edema Laboratory Results - last 24 hr 04/07/17 04/11/17 04/11/17 12:15 05:05 06:30 WBC 5.7 RBC 2.78 L Hgb 7.7 L Hct 23.3 L MCV 83.6 MCH 27.6 MCHC 33.0 RDW 16.1 H Plt Count 141 MPV 7.9 Absolute Neuts (auto) 3.8 L Absolute Lymphs (auto) 0.7 L Absolute Monos (auto) 0.8 L Absolute Eos (auto) 0.3 Absolute Basos (auto) 0.1 Neutrophils % 66.8 Lymphocytes % 12.9 D Monocytes % 14.8 H Eosinophils % 4.6 H Basophils % 0.9 Sodium 138 Potassium 3.8 D Chloride 103 Carbon Dioxide 23 Anion Gap 12 BUN 25 H Creatinine 1.1 H Random Glucose 77 D Calcium 8.1 L Blood Type B POSITIVE Antibody Screen Negative Crossmatch See Detail Active Medications Generic Name Dose Route Start Last Admin Trade Name Freq PRN Reason Stop Dose Admin Acetaminophen 650 mg 04/07/17 15:38 Tylenol - PO Q6H PRN FEVER OR PAIN Atorvastatin Calcium 40 mg 04/09/17 22:00 04/10/17 21:18 Lipitor - PO 40 mg HS [facility] Administration Carvedilol 12.5 mg 04/09/17 10:00 04/11/17 09:52 Coreg - PO 12.5 mg BID [facility] Administration Dorzolamide HCl 1 drop 04/09/17 10:00 04/11/17 09:52 Trusopt 2% OU 1 drp DAILY [facility] Administration Pantoprazole Sodium 80 mg/ 100 mls @ 10 mls/hr 04/07/17 12:15 04/11/17 06:09 Sodium Chloride IVPB 10 mls/hr Q10H [facility] Administration 8 MG/HR Potassium Chloride/Sodium Chloride 20 meq in 1,000 mls @ 75 mls/hr 04/10/17 13 :30 04/10/17 13:30 Ns+20 Meq Kcl - IV 75 mls/hr ASDIR [facility] Administration Isosorbide Mononitrate 30 mg 04/09/17 22:00 04/10/17 21:18 Imdur - PO 30 mg HS [facility] Administration Latanoprost 1 drop 04/09/17 22:00 04/10/17 21:19 Xalatan 0.005% Eye Drops - OU 1 drop HS [facility] Administration Levothyroxine Sodium 100 mcg 04/10/17 07:00 04/11/17 06:10 Synthroid - PO 100 mcg AM [facility] Administration Assessment: 82 year old female with a PMH significant for HTN, HLD, CAD s/p NSTEMI and stent x 1 (09/2016) s/p positive stress MIBI (01/2017), PAD, atrial fibrillation, systolic heart failure, severe pHTN, COPD, and hypothyroidism. Admitted for GI bleed. Plan: 1. Severe acute blood loss anemia - Due to GI bleed - Hgb down today will monitor and transfuse as needed, currently asymptomatic - Transfused 3U PRBC - Transfused 2U monodonor platelets because patient on ASA/Plavix - Continue protonix gtt - Hold AC 2. GI bleed - EGD/colonoscopy 04/10, awaiting report 3. AMANDA - Stable 4. Hypokalemia - Resolved - Stop fluids 5. CAD s/p NSTEMI s/p EDSON - Continue to hold ASA, Plavix - Continue Lipitor - Isosorbide 30mg Hs 6. Hypertension - Stable - Carvedilol 12.5mg BID 7. Atrial fibrillation - Rate controlled on Coreg - Hold eliquis 8. Systolic heart failure/Pulm HTN - No acute exacerbation today - 04/08 CXR shows worsening congestion s/p lasix - Lasix PRN 9. COPD - Stable 10. Hypothyroidism - Continue levothyroxine 11. Hypomagnesemia - Resolved 12. Lactic acidosis - Due to GI bleed - Resolved 13. Right lung nodule, 5mm - Pulm following DVT prophylaxis: SCDs, hold chemical prophylaxis due to bleeding Visit type - Emergency Visit Emergency Visit: Yes ED Registration Date: 04/07/17 Care time: The patient presented to the Emergency Department on the above date and was hospitalized for further evaluation of their emergent condition. - New Patient This patient is new to me today: No - Critical Care Critical Care patient: No
[2017-04-11] MEDS: LATANOPROST 0.005% OPHTH SOLN 2.5ML BOTTLE OU SCH (22:17)
[2017-04-11] MEDS: ISOSORBIDE MONONITRATE 30 MG TAB.SR.24H (FP) PO SCH (22:17)
[2017-04-11] MEDS: ATORVASTATIN CA 40 MG TABLET (FP) PO SCH (22:17)
[2017-04-12] MEDS: PANTOPRAZOLE SODIUM 80 MG in SODIUM CHLORIDE 100 ML IVPB SCH (05:15)
[2017-04-12] MEDS: LEVOTHYROXINE NA 100 MCG TABLET (FP) PO SCH (06:11)
[2017-04-12 08:11] LABS: BASO % 1.2 % (0-2.0); EOS % 5.2 % (0-4.5); HEMATOCRIT 24.5 % (32.4-45.2); LYMPH % 14.5 % (8-40); MCH 27.2 pg (25.7-33.7); MCHC 32.4 g/dl (32.0-36.0); MEAN PLT VOLUME 7.7 fl (7.5-11.1); MONO % 14.3 % (3.8-10.2); NEUT % 64.8 % (42.8-82.8); PLATELET COUNT 144 K/MM3 (134-434); RBC 2.92 M/mm3 (3.60-5.2); RDW 16.1 % (11.6-15.6); WHITE BLOOD COUNT 5.2 K/mm3 (4.0-10.0)
[2017-04-12] MEDS: CARVEDILOL 12.5 MG TABLET (FP) PO SCH ×2 (09:26→22:19)
[2017-04-12] MEDS: DORZOLAMIDE 2% HCL OPHTHALMIC SOLUTION 10 ML BOTTLE OU SCH (09:27)
--- NOTE | 2017-04-12 09:44 | PN ---
Progress Note, Physician History of Present Illness: PULMONARY ALERT,NAD,-CP,-SOB - Current Medication List Current Medications: Active Medications Acetaminophen (Tylenol -) 650 mg PO Q6H PRN PRN Reason: FEVER OR PAIN Atorvastatin Calcium (Lipitor -) 40 mg PO HS [facility] Last Admin: 04/11/17 22:17 Dose: 40 mg Carvedilol (Coreg -) 12.5 mg PO BID [facility] Last Admin: 04/12/17 09:26 Dose: Not Given Dorzolamide HCl (Trusopt 2%) 1 drop OU DAILY [facility] Last Admin: 04/12/17 09:27 Dose: 1 drp Pantoprazole Sodium 80 mg/ (Sodium Chloride) 100 mls @ 10 mls/hr IVPB Q10H [facility] PRN Reason: 8 MG/HR Last Admin: 04/12/17 05:15 Dose: 10 mls/hr Potassium Chloride/Sodium Chloride (Ns+20 Meq Kcl -) 20 meq in 1,000 mls @ 75 mls/hr IV ASDIR [facility] Last Admin: 04/11/17 14:00 Dose: Not Given Isosorbide Mononitrate (Imdur -) 30 mg PO [facility] Last Admin: 04/11/17 22:17 Dose: 30 mg Latanoprost (Xalatan 0.005% Eye Drops -) 1 drop OU [facility] Last Admin: 04/11/17 22:17 Dose: 1 drop Levothyroxine Sodium (Synthroid -) 100 mcg PO AM [facility] Last Admin: 04/12/17 06:11 Dose: 100 mcg - Objective Vital Signs: Vital Signs Temperature 97.8 F 04/12/17 02:00 Pulse Rate 84 04/12/17 05:42 Respiratory Rate 18 04/12/17 05:42 Blood Pressure 120/50 04/12/17 05:42 O2 Sat by Pulse Oximetry (%) 97 04/11/17 21:00 Constitutional: Yes: Well Nourished, Calm Eyes: Yes: WNL HENT: Yes: WNL Neck: Yes: WNL Cardiovascular: Yes: Pulse Irregular, S1, S2 Respiratory: Yes: Diminished Gastrointestinal: Yes: Normal Bowel Sounds, Soft Extremities: Yes: WNL Edema: No Labs: CBC, BMP 04/12/17 06:30 Assessment/Plan ASSESSMENT AND PLAN: Severe Anemia s/p PRBC transfusions GI Bleed Acute Kidney Injury Lactic Acidosis Platelet Dysfunction Atrial Fibrillation CAD COPD LUNG NODULE LV Systolic Dysfunction Pulmonary HTN - monitor H/H - transfuse as needed - inhaled bronchodilators prn - protonix gtt - O2 to keep Spo2 >90% - DVT prophylaxis DR JEFFERS
--- NOTE | 2017-04-12 12:59 | PN ---
Progress Note, Physician Chief Complaint: Pt A&Ox3; OOB in chair. No chest pain; dyspnea on mild exertion. History of Present Illness: The patient is an 82 year old white female with a history of triple vessel CAD ( s/p mid-RCA DEstent 2015; no PCI needed on coronary angiogram 01/2017, but noted severe MR, mild-moderate LV dysfunction, and moderately severe pulmonary HTN; pt refused trans-apical mitral valve replacement), afib, COPD, HTN, HLD, who presents for evaluation of generalized weakness and shortness of breath. The patient reports a several day history of generalized weakness with associated shortness of breath at rest worse with exertion. She noted some dizziness and worsening symptoms earlier this morning prompting her presentation to the ED for evaluation. She notes that she has been constipated over the past few days, but noted some dark black stools yesterday evening. She states that she has had similar symptoms in the past. She denies any headache, cough, fevers, chest pain, abdominal pain, nausea, vomiting, or changes with urination. She notes that she has been very cold over the past few days. She denies any recent weight gain or leg swelling. - Current Medication List Current Medications: Active Medications Acetaminophen (Tylenol -) 650 mg PO Q6H PRN PRN Reason: FEVER OR PAIN Atorvastatin Calcium (Lipitor -) 40 mg PO [facility] Last Admin: 04/11/17 22:17 Dose: 40 mg Carvedilol (Coreg -) 12.5 mg PO BID [facility] Last Admin: 04/12/17 09:26 Dose: Not Given Dorzolamide HCl (Trusopt 2%) 1 drop OU DAILY [facility] Last Admin: 04/12/17 09:27 Dose: 1 drp Pantoprazole Sodium 80 mg/ (Sodium Chloride) 100 mls @ 10 mls/hr IVPB Q10H [facility] PRN Reason: 8 MG/HR Last Admin: 04/12/17 05:15 Dose: 10 mls/hr Potassium Chloride/Sodium Chloride (Ns+20 Meq Kcl -) 20 meq in 1,000 mls @ 75 mls/hr IV ASDIR [facility] Last Admin: 04/11/17 14:00 Dose: Not Given Isosorbide Mononitrate (Imdur -) 30 mg PO HS [facility] Last Admin: 04/11/17 22:17 Dose: 30 mg Latanoprost (Xalatan 0.005% Eye Drops -) 1 drop OU HS [facility] Last Admin: 04/11/17 22:17 Dose: 1 drop Levothyroxine Sodium (Synthroid -) 100 mcg PO AM [facility] Last Admin: 04/12/17 06:11 Dose: 100 mcg - Objective Vital Signs: Vital Signs Temperature 97.8 F 04/12/17 02:00 Pulse Rate 84 04/12/17 05:42 Respiratory Rate 18 04/12/17 05:42 Blood Pressure 120/50 04/12/17 05:42 O2 Sat by Pulse Oximetry (%) 97 04/11/17 21:00 Constitutional: Yes: Anxious Eyes: Yes: WNL HENT: Yes: WNL Neck: Yes: WNL Cardiovascular: Yes: Pulse Irregular Respiratory: Yes: Regular Gastrointestinal: Yes: Soft ...Rectal Exam: Yes: Deferred Genitourinary: No: Anuria Musculoskeletal: Yes: Muscle Weakness Extremities: Yes: Cool Edema: No Peripheral Pulses WNL: No Peripheral Pulses: Left Doralis Pedis: 1+, Right Dorsalis Pedis: 1+ Integumentary: Yes: WNL Neurological: Yes: Alert, Oriented, Weakness Psychiatric: Yes: WNL Labs: CBC, BMP 04/12/17 06:30 04/11/17 05:05 INR, PTT INR 1.50 (0.82-1.09) H 04/09/17 05:25 Fibrinogen 295.0 mg/dL (238-498) 04/08/17 05:45 - ....Imaging Other: Image Reviewed (telemetry: AF; controlled VR) Problem List - Problems (1) Severe mitral regurgitation Assessment/Plan: 01/2017 coronary angiogram showed triple vessel CAD (no PCI required); hx mid- RCA-->drug-eleuting stent 2015. Pt refused trans-apical mitral valve replacement at the time. She has been on furosemide, but this has been held presently due to marked rise in BUN/Cr, and hypotension. F/u CXR;Is and Os, daily weight, BUN/Cr, electrolytes. Code(s): I34.0 - NONRHEUMATIC MITRAL (VALVE) INSUFFICIENCY (2) Anemia Assessment/Plan: undergoing GI workup. Code(s): D64.9 - ANEMIA, UNSPECIFIED Qualifiers: Anemia type: unspecified type Qualified Code(s): D64.9 - Anemia, unspecified (3) GI bleed Assessment/Plan: F/u with GI Code(s): K92.2 - GASTROINTESTINAL HEMORRHAGE, UNSPECIFIED Qualifiers: GI bleed type/associated pathology: unspecified gastrointestinal hemorrhage type Qualified Code(s): K92.2 - Gastrointestinal hemorrhage, unspecified (4) Hypotension Assessment/Plan: Resolved after PRBCs; on carvedilol, Imdur, fluids. Code(s): I95.9 - HYPOTENSION, UNSPECIFIED Qualifiers: Hypotension type: unspecified hypotension type Qualified Code(s): I95.9 - Hypotension, unspecified (5) ASHD (arteriosclerotic heart disease) Code(s): I25.10 - ATHSCL HEART DISEASE OF [place] CORONARY ARTERY W/O ANG PCTRS (6) Acute on chronic systolic (congestive) heart failure Assessment/Plan: f/u results of most recently coronary angiogram, LV gram, and ECHO. Medications held presently due to hypotension. Receiving PRBCs; bring Hct to 30. Code(s): I50.23 - ACUTE ON CHRONIC SYSTOLIC (CONGESTIVE) HEART FAILURE (7) Anxiety Code(s): F41.9 - ANXIETY DISORDER, UNSPECIFIED (8) Atrial fibrillation Assessment/Plan: anticoagulation and antiplatelets held pending GI workup for source of bleed. Code(s): I48.91 - UNSPECIFIED ATRIAL FIBRILLATION Qualifiers: Atrial fibrillation type: unspecified Qualified Code(s): I48.91 - Unspecified atrial fibrillation (9) COPD (chronic obstructive pulmonary disease) Code(s): J44.9 - CHRONIC OBSTRUCTIVE PULMONARY DISEASE, UNSPECIFIED (10) Moderate to severe pulmonary hypertension Code(s): I27.2 - OTHER SECONDARY PULMONARY HYPERTENSION * DO NOT USE *
--- NOTE | 2017-04-12 14:18 | PN ---
Physical Exam: SUBJECTIVE: Patient seen and examined. She feels better, she would like to ambulate, she does not normally use oxygen at home OBJECTIVE: Vital Signs Period Temp Pulse Resp BP Sys/Tenorio Pulse Ox Last 24 Hr 97.8 F-98.5 F 78-87 18-20 100-120/50-80 97 PE Neuro: alert, awake, cn 2-12intact Pulm: clear with scattered crackles CV: s1 s2 irregular rhythm, regular rate Abd: s nt nd +bs Ext: Warm, no le edema Laboratory Results - last 24 hr 04/12/17 06:30 WBC 5.2 RBC 2.92 L Hgb 8.0 L Hct 24.5 L MCV 84.0 MCH 27.2 MCHC 32.4 RDW 16.1 H Plt Count 144 MPV 7.7 Neutrophils % 64.8 Lymphocytes % 14.5 Monocytes % 14.3 H Eosinophils % 5.2 H Basophils % 1.2 Active Medications Generic Name Dose Route Start Last Admin Trade Name Freq PRN Reason Stop Dose Admin Acetaminophen 650 mg 04/07/17 15:38 Tylenol - PO Q6H PRN FEVER OR PAIN Atorvastatin Calcium 40 mg 04/09/17 22:00 04/11/17 22:17 Lipitor - PO 40 mg HS LUKE Administration Carvedilol 12.5 mg 04/09/17 10:00 04/12/17 09:26 Coreg - PO Not Given BID LUKE Dorzolamide HCl 1 drop 04/09/17 10:00 04/12/17 09:27 Trusopt 2% OU 1 drp DAILY [facility] Administration Pantoprazole Sodium 80 mg/ 100 mls @ 10 mls/hr 04/07/17 12:15 04/12/17 05:15 Sodium Chloride IVPB 10 mls/hr Q10H [facility] Administration 8 MG/HR Potassium Chloride/Sodium Chloride 20 meq in 1,000 mls @ 75 mls/hr 04/10/17 13 :30 04/11/17 14:00 Ns+20 Meq Kcl - IV Not Given ASDIR LUKE Isosorbide Mononitrate 30 mg 04/09/17 22:00 04/11/17 22:17 Imdur - PO 30 mg HS [facility]KE Administration Latanoprost 1 drop 04/09/17 22:00 04/11/17 22:17 Xalatan 0.005% Eye Drops - OU 1 drop HS [facility]KE Administration Levothyroxine Sodium 100 mcg 04/10/17 07:00 04/12/17 06:11 Synthroid - PO 100 mcg AM [facility]KE Administration Assessment: 82 year old female with a PMH significant for HTN, HLD, CAD s/p NSTEMI and stent x 1 (09/2016) s/p positive stress MIBI (01/2017), PAD, atrial fibrillation, systolic heart failure, severe pHTN, COPD, and hypothyroidism. Admitted for GI bleed. Plan: 1. Severe acute blood loss anemia - Due to GI bleed - Hgb improved today w/o transfusion - If continues to drop will transfuse - Transfused 3U PRBC, 2uplts 2. GI bleed - EGD/colonoscopy 04/10, awaiting report prior to restarting eliquis 3. AMANDA - Stable 4. Hypokalemia - Resolved 5. CAD s/p NSTEMI s/p EDSON - Continue to hold ASA, Plavix - Continue Lipitor - Isosorbide 30mg Hs 6. Hypertension - Stable - Carvedilol 12.5mg BID 7. Atrial fibrillation - Rate controlled on Coreg - Hold eliquis 8. Systolic heart failure/Pulm HTN - No acute exacerbation today - 04/08 CXR shows worsening congestion s/p lasix - Lasix PRN 9. COPD - Stable 10. Hypothyroidism - Continue levothyroxine 11. Hypomagnesemia - Resolved 12. Lactic acidosis - Due to GI bleed - Resolved 13. Right lung nodule, 5mm - Pulm following DVT prophylaxis: SCDs, hold chemical prophylaxis due to bleeding Visit type - Emergency Visit Emergency Visit: Yes ED Registration Date: 04/07/17 Care time: The patient presented to the Emergency Department on the above date and was hospitalized for further evaluation of their emergent condition. - New Patient This patient is new to me today: No - Critical Care Critical Care patient: No
[2017-04-12] MEDS: ATORVASTATIN CA 40 MG TABLET (FP) PO SCH (22:19)
[2017-04-12] MEDS: ISOSORBIDE MONONITRATE 30 MG TAB.SR.24H (FP) PO SCH (22:19)
[2017-04-12] MEDS: LATANOPROST 0.005% OPHTH SOLN 2.5ML BOTTLE OU SCH (22:20)
[2017-04-12] MEDS: SODIUM CHLORIDE 0.9%/KCL 20 MEQ/1,000 ML INFUS.BAG IV SCH (22:20)
[2017-04-13] MEDS: PANTOPRAZOLE SODIUM 80 MG in SODIUM CHLORIDE 100 ML IVPB SCH ×3 (00:30→19:45)
[2017-04-13] MEDS: LEVOTHYROXINE NA 100 MCG TABLET (FP) PO SCH (06:07)
[2017-04-13 08:00] LABS: EOS % 6.1 % (0-4.5); HEMATOCRIT 24.5 % (32.4-45.2); HEMOGLOBIN 7.8 GM/dL (10.7-15.3); LYMPH % 13.5 % (8-40); MCH 26.8 pg (25.7-33.7); MCHC 31.8 g/dl (32.0-36.0); MEAN CELL VOLUME 84.1 fl (80-96); MEAN PLT VOLUME 7.7 fl (7.5-11.1); MONO % 14.5 % (3.8-10.2); NEUT % 64.9 % (42.8-82.8); PLATELET COUNT 133 K/MM3 (134-434); RBC 2.91 M/mm3 (3.60-5.2); RDW 16.8 % (11.6-15.6); WHITE BLOOD COUNT 5.1 K/mm3 (4.0-10.0)
[2017-04-13 08:33] LABS: ANION GAP 9 (8-16); BLOOD UREA NITROGEN 19 mg/dL (7-18); CALCIUM 8.1 mg/dL (8.5-10.1); CHLORIDE 105 mmol/L (98-107); CO2 23 mmol/L (21-32); CREATININE 1.1 mg/dL (0.55-1.02); GLUCOSE,RANDOM 87 mg/dL (74-106); POTASSIUM 3.9 mmol/L (3.5-5.1); SODIUM 137 mmol/L (136-145)
[2017-04-13] MEDS: DORZOLAMIDE 2% HCL OPHTHALMIC SOLUTION 10 ML BOTTLE OU SCH (09:26)
[2017-04-13] MEDS: CARVEDILOL 12.5 MG TABLET (FP) PO SCH ×2 (09:26→22:15)
--- NOTE | 2017-04-13 09:34 | PN ---
Progress Note, Physician History of Present Illness: PULMONARY ALERT,COMFORTABLE AT REST,+WATERS,-CP - Current Medication List Current Medications: Active Medications Acetaminophen (Tylenol -) 650 mg PO Q6H PRN PRN Reason: FEVER OR PAIN Atorvastatin Calcium (Lipitor -) 40 mg PO [facility] Last Admin: 04/12/17 22:19 Dose: 40 mg Carvedilol (Coreg -) 12.5 mg PO BID [facility] Last Admin: 04/13/17 09:26 Dose: 12.5 mg Dorzolamide HCl (Trusopt 2%) 1 drop OU DAILY [facility] Last Admin: 04/13/17 09:26 Dose: 1 drp Pantoprazole Sodium 80 mg/ (Sodium Chloride) 100 mls @ 10 mls/hr IVPB Q10H [facility] PRN Reason: 8 MG/HR Last Admin: 04/13/17 09:27 Dose: 10 mls/hr Potassium Chloride/Sodium Chloride (Ns+20 Meq Kcl -) 20 meq in 1,000 mls @ 75 mls/hr IV ASDIR [facility] Last Admin: 04/12/17 22:20 Dose: Not Given Isosorbide Mononitrate (Imdur -) 30 mg PO [facility] Last Admin: 04/12/17 22:19 Dose: 30 mg Latanoprost (Xalatan 0.005% Eye Drops -) 1 drop OU [facility] Last Admin: 04/12/17 22:20 Dose: 1 drop Levothyroxine Sodium (Synthroid -) 100 mcg PO AM [facility] Last Admin: 04/13/17 06:07 Dose: 100 mcg - Objective Vital Signs: Vital Signs Temperature 97.6 F 04/13/17 02:27 Pulse Rate 66 04/13/17 05:51 Respiratory Rate 20 04/13/17 05:51 Blood Pressure 111/66 04/13/17 05:51 O2 Sat by Pulse Oximetry (%) 90 L 04/12/17 16:22 Constitutional: Yes: Well Nourished, Calm Eyes: Yes: WNL HENT: Yes: WNL Neck: Yes: WNL Cardiovascular: Yes: Pulse Irregular, S1, S2 Respiratory: Yes: CTA Bilaterally Gastrointestinal: Yes: Normal Bowel Sounds, Soft Extremities: Yes: WNL Edema: No Labs: CBC, BMP 04/13/17 06:38 04/13/17 06:38 INR, PTT INR 1.50 (0.82-1.09) H 04/09/17 05:25 Fibrinogen 295.0 mg/dL (238-498) 04/08/17 05:45 Assessment/Plan ASSESSMENT AND PLAN: Severe Anemia GI Bleed Acute Kidney Injury Lactic Acidosis improved Platelet Dysfunction Atrial Fibrillation CAD COPD LUNG NODULE LV Systolic Dysfunction Pulmonary HTN - monitor H/H - transfuse as needed - inhaled bronchodilators prn - protonix gtt - O2 to keep Spo2 >90% - DVT prophylaxis DR JEFFERS
--- NOTE | 2017-04-13 14:20 | PN ---
Physical Exam: SUBJECTIVE: Patient seen and examined. She appears tired, however no acute complaints, sob, cp, bleeding. OBJECTIVE: Vital Signs Period Temp Pulse Resp BP Sys/Tenorio Pulse Ox Last 24 Hr 97.0 F-98.4 F 66-130 18-24 104-127/62-80 90 PE Neuro: alert, awake, cn 2-12intact Pulm: clear with scattered crackles CV: s1 s2 irregular rhythm, regular rate Abd: s nt nd +bs Ext: Warm, no le edema Laboratory Results - last 24 hr 04/13/17 04/13/17 04/13/17 06:38 06:38 12:16 WBC 5.1 RBC 2.91 L Hgb 7.8 L Hct 24.5 L MCV 84.1 MCH 26.8 MCHC 31.8 L RDW 16.8 H Plt Count 133 L MPV 7.7 Neutrophils % 64.9 Lymphocytes % 13.5 Monocytes % 14.5 H Eosinophils % 6.1 H Basophils % 1.0 Sodium 137 Potassium 3.9 Chloride 105 Carbon Dioxide 23 Anion Gap 9 BUN 19 H D Creatinine 1.1 H Random Glucose 87 Calcium 8.1 L Blood Type B POSITIVE Antibody Screen Negative Crossmatch See Detail Active Medications Generic Name Dose Route Start Last Admin Trade Name Freq PRN Reason Stop Dose Admin Acetaminophen 650 mg 04/07/17 15:38 Tylenol - PO Q6H PRN FEVER OR PAIN Atorvastatin Calcium 40 mg 04/09/17 22:00 04/12/17 22:19 Lipitor - PO 40 mg HS [facility] Administration Carvedilol 12.5 mg 04/09/17 10:00 04/13/17 09:26 Coreg - PO 12.5 mg BID [facility] Administration Dorzolamide HCl 1 drop 04/09/17 10:00 04/13/17 09:26 Trusopt 2% OU 1 drp DAILY [facility] Administration Pantoprazole Sodium 80 mg/ 100 mls @ 10 mls/hr 04/07/17 12:15 04/13/17 09:27 Sodium Chloride IVPB 10 mls/hr Q10H [facility] Administration 8 MG/HR Potassium Chloride/Sodium Chloride 20 meq in 1,000 mls @ 75 mls/hr 04/10/17 13 :30 04/12/17 22:20 Ns+20 Meq Kcl - IV Not Given ASDIR LUKE Isosorbide Mononitrate 30 mg 04/09/17 22:00 04/12/17 22:19 Imdur - PO 30 mg HS [facility] Administration Latanoprost 1 drop 04/09/17 22:00 04/12/17 22:20 Xalatan 0.005% Eye Drops - OU 1 drop HS [facility] Administration Levothyroxine Sodium 100 mcg 04/10/17 07:00 04/13/17 06:07 Synthroid - PO 100 mcg AM [facility] Administration Assessment: 82 year old female with a PMH significant for HTN, HLD, CAD s/p NSTEMI and stent x 1 (09/2016) s/p positive stress MIBI (01/2017), PAD, atrial fibrillation, systolic heart failure, severe pHTN, COPD, and hypothyroidism. Admitted for GI bleed. Plan: 1. Severe acute blood loss anemia - Due to GI bleed - Transfuse 1 unit pack cells now - Can restart ASA pending plt level tomorrow, hold resuming plavix until recent cath intervention 01/2017 report further reviewed, per d.w cardio - Transfused 3U PRBC, 2uplts 2. GI bleed - EGD/colonoscopy 04/10 shows erosions, colon polyps, mucosal splis in right colon, possible diverticula bleed - Due to above findings, will hold AC until outpt follow up d/w cardio/GI, at that point consider coumadin 3. Thrombocytopenia - Acute drop today, pt not on fluids - Monitor level tomorrow before starting ASA 3. AMANDA - Stable 4. Hypokalemia - Resolved 5. CAD s/p NSTEMI s/p EDSON - Continue Lipitor - Isosorbide 30mg Hs - Continue to hold ASA, Plavix 6. Hypertension - Stable - Carvedilol 12.5mg BID 7. Atrial fibrillation - Rate controlled on Coreg - Hold eliquis 8. Systolic heart failure/Pulm HTN - No acute exacerbation today - 04/08 CXR shows worsening congestion s/p lasix - Lasix PRN 9. COPD - Stable 10. Hypothyroidism - Continue levothyroxine 11. Hypomagnesemia - Resolved 12. Lactic acidosis - Due to GI bleed - Resolved 13. Right lung nodule, 5mm - Pulm following DVT prophylaxis: SCDs, hold chemical prophylaxis due to bleeding Visit type - Emergency Visit Emergency Visit: Yes ED Registration Date: 04/07/17 Care time: The patient presented to the Emergency Department on the above date and was hospitalized for further evaluation of their emergent condition. - New Patient This patient is new to me today: No - Critical Care Critical Care patient: No
--- NOTE | 2017-04-13 21:01 | PN ---
Progress Note, Physician Chief Complaint: Pt A&Ox3;no complaints. History of Present Illness: The patient is an 82 year old white female with a history of triple vessel CAD ( s/p mid-RCA DEstent 2015; no PCI needed on coronary angiogram 01/2017, but noted severe MR, mild-moderate LV dysfunction, and moderately severe pulmonary HTN; pt refused trans-apical mitral valve replacement), afib, COPD, HTN, HLD, who presents for evaluation of generalized weakness and shortness of breath. The patient reports a several day history of generalized weakness with associated shortness of breath at rest worse with exertion. She noted some dizziness and worsening symptoms earlier this morning prompting her presentation to the ED for evaluation. She notes that she has been constipated over the past few days, but noted some dark black stools yesterday evening. She states that she has had similar symptoms in the past. She denies any headache, cough, fevers, chest pain, abdominal pain, nausea, vomiting, or changes with urination. She notes that she has been very cold over the past few days. She denies any recent weight gain or leg swelling. - Current Medication List Current Medications: Active Medications Acetaminophen (Tylenol -) 650 mg PO Q6H PRN PRN Reason: FEVER OR PAIN Atorvastatin Calcium (Lipitor -) 40 mg PO HS [facility] Last Admin: 04/12/17 22:19 Dose: 40 mg Carvedilol (Coreg -) 12.5 mg PO BID [facility] Last Admin: 04/13/17 09:26 Dose: 12.5 mg Dorzolamide HCl (Trusopt 2%) 1 drop OU DAILY [facility] Last Admin: 04/13/17 09:26 Dose: 1 drp Pantoprazole Sodium 80 mg/ (Sodium Chloride) 100 mls @ 10 mls/hr IVPB Q10H [facility] PRN Reason: 8 MG/HR Last Admin: 04/13/17 19:45 Dose: 10 mls/hr Potassium Chloride/Sodium Chloride (Ns+20 Meq Kcl -) 20 meq in 1,000 mls @ 75 mls/hr IV ASDIR [facility] Last Admin: 04/12/17 22:20 Dose: Not Given Isosorbide Mononitrate (Imdur -) 30 mg PO HS [facility] Last Admin: 04/12/17 22:19 Dose: 30 mg Latanoprost (Xalatan 0.005% Eye Drops -) 1 drop OU HS [facility] Last Admin: 04/12/17 22:20 Dose: 1 drop Levothyroxine Sodium (Synthroid -) 100 mcg PO AM [facility] Last Admin: 04/13/17 06:07 Dose: 100 mcg - Objective Vital Signs: Vital Signs Temperature 98.1 F 04/13/17 17:00 Pulse Rate 83 04/13/17 17:00 Respiratory Rate 20 04/13/17 17:00 Blood Pressure 122/72 04/13/17 17:00 O2 Sat by Pulse Oximetry (%) 99 04/13/17 09:00 Constitutional: Yes: Calm Eyes: Yes: WNL HENT: Yes: WNL Neck: Yes: WNL Cardiovascular: Yes: Pulse Irregular Respiratory: Yes: Diminished, SOB on Exertion Gastrointestinal: Yes: Soft ...Rectal Exam: Yes: Deferred Genitourinary: No: Anuria Musculoskeletal: Yes: Muscle Weakness Extremities: Yes: Cool Edema: No Peripheral Pulses WNL: No Peripheral Pulses: Left Doralis Pedis: 1+, Right Dorsalis Pedis: 1+ Neurological: Yes: Alert, Oriented, Weakness Psychiatric: Yes: WNL, Alert, Oriented Labs: CBC, BMP 04/13/17 06:38 04/13/17 06:38 INR, PTT INR 1.50 (0.82-1.09) H 04/09/17 05:25 Fibrinogen 295.0 mg/dL (238-498) 04/08/17 05:45 Problem List - Problems (1) Severe mitral regurgitation Assessment/Plan: 01/2017 coronary angiogram showed triple vessel CAD (no PCI required); hx mid- RCA-->drug-eleuting stent 2015. Pt refused trans-apical mitral valve replacement at the time. She has been on furosemide, but this has been held presently due to marked rise in BUN/Cr, and hypotension. F/u CXR;Is and Os, daily weight, BUN/Cr, electrolytes. Code(s): I34.0 - NONRHEUMATIC MITRAL (VALVE) INSUFFICIENCY (2) Anemia Assessment/Plan: undergoing GI workup; f/u results of EGD and colonoscopy. Code(s): D64.9 - ANEMIA, UNSPECIFIED Qualifiers: Anemia type: unspecified type Qualified Code(s): D64.9 - Anemia, unspecified (3) GI bleed Assessment/Plan: F/u EGD and colonoscopy. Code(s): K92.2 - GASTROINTESTINAL HEMORRHAGE, UNSPECIFIED Qualifiers: GI bleed type/associated pathology: unspecified gastrointestinal hemorrhage type Qualified Code(s): K92.2 - Gastrointestinal hemorrhage, unspecified (4) Hypotension Assessment/Plan: Resolved after PRBCs; on carvedilol, Imdur, fluids. Code(s): I95.9 - HYPOTENSION, UNSPECIFIED Qualifiers: Hypotension type: unspecified hypotension type Qualified Code(s): I95.9 - Hypotension, unspecified (5) ASHD (arteriosclerotic heart disease) Code(s): I25.10 - ATHSCL HEART DISEASE OF [place] CORONARY ARTERY W/O ANG PCTRS (6) Acute on chronic systolic (congestive) heart failure Code(s): I50.23 - ACUTE ON CHRONIC SYSTOLIC (CONGESTIVE) HEART FAILURE (7) Anxiety Code(s): F41.9 - ANXIETY DISORDER, UNSPECIFIED (8) Atrial fibrillation Assessment/Plan: anticoagulation and antiplatelets held pending GI workup for source of bleed. F/u EGD and colonoscopy. Code(s): I48.91 - UNSPECIFIED ATRIAL FIBRILLATION Qualifiers: Atrial fibrillation type: unspecified Qualified Code(s): I48.91 - Unspecified atrial fibrillation (9) COPD (chronic obstructive pulmonary disease) Code(s): J44.9 - CHRONIC OBSTRUCTIVE PULMONARY DISEASE, UNSPECIFIED (10) Moderate to severe pulmonary hypertension Code(s): I27.2 - OTHER SECONDARY PULMONARY HYPERTENSION * DO NOT USE *
[2017-04-13] MEDS: ATORVASTATIN CA 40 MG TABLET (FP) PO SCH (22:15)
[2017-04-13] MEDS: ISOSORBIDE MONONITRATE 30 MG TAB.SR.24H (FP) PO SCH (22:15)
[2017-04-13] MEDS: LATANOPROST 0.005% OPHTH SOLN 2.5ML BOTTLE OU SCH (22:18)
[2017-04-13] MEDS: SODIUM CHLORIDE 0.9%/KCL 20 MEQ/1,000 ML INFUS.BAG IV SCH (22:20)
[2017-04-14] MEDS: LEVOTHYROXINE NA 100 MCG TABLET (FP) PO SCH (06:07)
[2017-04-14 07:51] LABS: BASO % 1.3 % (0-2.0); EOS % 5.1 % (0-4.5); HEMATOCRIT 28.4 % (32.4-45.2); HEMOGLOBIN 9.2 GM/dL (10.7-15.3); LYMPH % 14.1 % (8-40); MCH 27.4 pg (25.7-33.7); MCHC 32.3 g/dl (32.0-36.0); MEAN CELL VOLUME 84.9 fl (80-96); MEAN PLT VOLUME 7.9 fl (7.5-11.1); MONO % 12.8 % (3.8-10.2); NEUT % 66.7 % (42.8-82.8); PLATELET COUNT 142 K/MM3 (134-434); RBC 3.35 M/mm3 (3.60-5.2); RDW 16.9 % (11.6-15.6); WHITE BLOOD COUNT 6.2 K/mm3 (4.0-10.0)
[2017-04-14 08:21] LABS: ANION GAP 8 (8-16); BLOOD UREA NITROGEN 17 mg/dL (7-18); CHLORIDE 107 mmol/L (98-107); CO2 22 mmol/L (21-32); GLUCOSE,RANDOM 91 mg/dL (74-106); MAGNESIUM 1.8 mg/dL (1.8-2.4); POTASSIUM 4.2 mmol/L (3.5-5.1); SODIUM 137 mmol/L (136-145)
--- NOTE | 2017-04-14 08:46 | PN ---
Physical Exam: SUBJECTIVE: Patient seen and examined. She feels a bit more sob today, and feels her legs are swollen. Events: - Transfused 1uprbc - Will give lasix 40mg x1 OBJECTIVE: Vital Signs Period Temp Pulse Resp BP Sys/Tenorio Pulse Ox Last 24 Hr 97.0 F-98.5 F 72-92 20-24 108-122/65-76 99 PE Neuro: alert, awake, cn 2-12intact Pulm: CTAB, no cough, no wheeze CV: s1 s2 irregular rhythm, regular rate Abd: s nt nd +bs Ext: Warm, + 1 pitting edema r>L Msk: kyphosis Laboratory Results - last 24 hr 04/13/17 04/14/17 12:16 06:37 WBC 6.2 RBC 3.35 L Hgb 9.2 L D Hct 28.4 L D MCV 84.9 MCH 27.4 MCHC 32.3 RDW 16.9 H Plt Count 142 MPV 7.9 Neutrophils % 66.7 Lymphocytes % 14.1 Monocytes % 12.8 H Eosinophils % 5.1 H Basophils % 1.3 Blood Type B POSITIVE Antibody Screen Negative Crossmatch See Detail Active Medications Generic Name Dose Route Start Last Admin Trade Name Freq PRN Reason Stop Dose Admin Acetaminophen 650 mg 04/07/17 15:38 Tylenol - PO Q6H PRN FEVER OR PAIN Aspirin 81 mg 04/14/17 10:00 Ecotrin - PO DAILY [facility] Atorvastatin Calcium 40 mg 04/09/17 22:00 04/13/17 22:15 Lipitor - PO 40 mg HS [facility] Administration Carvedilol 12.5 mg 04/09/17 10:00 04/13/17 22:15 Coreg - PO 12.5 mg BID [facility] Administration Dorzolamide HCl 1 drop 04/09/17 10:00 04/13/17 09:26 Trusopt 2% OU 1 drp DAILY [facility] Administration Furosemide 40 mg 04/14/17 09:00 Lasix Injection - IVPUSH 04/14/17 09:01 ONCE ONE Isosorbide Mononitrate 30 mg 04/09/17 22:00 04/13/17 22:15 Imdur - PO 30 mg HS [facility] Administration Latanoprost 1 drop 04/09/17 22:00 04/13/17 22:18 Xalatan 0.005% Eye Drops - OU 1 drop HS [facility] Administration Levothyroxine Sodium 100 mcg 04/10/17 07:00 04/14/17 06:07 Synthroid - PO 100 mcg AM [facility] Administration Pantoprazole Sodium 40 mg 04/14/17 10:00 Protonix - PO DAILY [facility] Assessment: 82 year old female with a PMH significant for HTN, HLD, CAD s/p NSTEMI and stent x 1 (09/2016) s/p positive stress MIBI (01/2017), PAD, atrial fibrillation, systolic heart failure, severe pHTN, COPD, and hypothyroidism. Admitted for GI bleed. Plan: 1. Severe acute blood loss anemia - Due to GI bleed - Transfused 1uprbc 04/13 with appropriate rise - Restart ASA - Transfused 3U PRBC, 2uplts 2. Systolic heart failure/Pulm HTN - Give x1 lasix 40 IV for sob, monitor response 3. GI bleed - EGD/colonoscopy 04/10 shows erosions, colon polyps, mucosal splis in right colon, possible diverticula bleed - Due to above findings, will hold AC until outpt follow up d/w cardio/GI, at that point consider coumadin - PO protonix 4. Thrombocytopenia - Resolved, wnl - Start ASA, defer plavix initiation to cards 5. AMANDA - Resolved 6. CAD s/p NSTEMI s/p EDSON - Continue Lipitor - Isosorbide 30mg Hs - Continue to hold ASA, Plavix 7. Hypertension - Stable - Carvedilol 12.5mg BID 8. Atrial fibrillation - Rate controlled on Coreg - Hold eliquis 9 Hypothyroidism - Continue levothyroxine 10. COPD - Stable 111. Hypomagnesemia - Resolved 12. Hypokalemia - Resolved 13. Lactic acidosis - Due to GI bleed - Resolved 13. Right lung nodule, 5mm - Pulm following DVT prophylaxis: SCDs, hold chemical prophylaxis due to bleeding Visit type - Emergency Visit Emergency Visit: Yes ED Registration Date: 04/07/17 Care time: The patient presented to the Emergency Department on the above date and was hospitalized for further evaluation of their emergent condition. - New Patient This patient is new to me today: No - Critical Care Critical Care patient: No
[2017-04-14] MEDS ORDERED: FUROSEMIDE 40 MG/4 ML INJECTABLE VIAL IVPUSH ONE (09:00)
[2017-04-14] MEDS ORDERED: MAGNESIUM OXIDE 400 MG TABLET (FP) PO ONE (09:04)
--- NOTE | 2017-04-14 09:51 | PN ---
Progress Note, Physician History of Present Illness: PULMONARY ALERT,C/O SOB WITH EXERTION,S/P TRANSFUSION 1UNIT PRBC. - Current Medication List Current Medications: Active Medications Acetaminophen (Tylenol -) 650 mg PO Q6H PRN PRN Reason: FEVER OR PAIN Aspirin (Ecotrin -) 81 mg PO DAILY [facility] Atorvastatin Calcium (Lipitor -) 40 mg PO HS [facility] Last Admin: 04/13/17 22:15 Dose: 40 mg Carvedilol (Coreg -) 12.5 mg PO BID [facility] Last Admin: 04/13/17 22:15 Dose: 12.5 mg Dorzolamide HCl (Trusopt 2%) 1 drop OU DAILY [facility] Last Admin: 04/13/17 09:26 Dose: 1 drp Isosorbide Mononitrate (Imdur -) 30 mg PO HS [facility] Last Admin: 04/13/17 22:15 Dose: 30 mg Latanoprost (Xalatan 0.005% Eye Drops -) 1 drop OU HS [facility] Last Admin: 04/13/17 22:18 Dose: 1 drop Levothyroxine Sodium (Synthroid -) 100 mcg PO AM [facility] Last Admin: 04/14/17 06:07 Dose: 100 mcg Pantoprazole Sodium (Protonix -) 40 mg PO DAILY [facility] - Objective Vital Signs: Vital Signs Temperature 98 F 04/14/17 08:35 Pulse Rate 92 H 04/14/17 08:35 Respiratory Rate 20 04/14/17 08:35 Blood Pressure 108/76 04/14/17 08:35 O2 Sat by Pulse Oximetry (%) 99 04/13/17 09:00 Constitutional: Yes: Well Nourished, Calm Eyes: Yes: WNL HENT: Yes: WNL Neck: Yes: WNL Cardiovascular: Yes: Pulse Irregular, S1, S2 Respiratory: Yes: Diminished Gastrointestinal: Yes: Normal Bowel Sounds, Soft Extremities: Yes: WNL Edema: No Labs: CBC, BMP 04/14/17 06:37 04/14/17 06:37 INR, PTT INR 1.50 (0.82-1.09) H 04/09/17 05:25 Fibrinogen 295.0 mg/dL (238-498) 04/08/17 05:45 Assessment/Plan ASSESSMENT AND PLAN: Severe Anemia GI Bleed Acute Kidney Injury Lactic Acidosis improved Platelet Dysfunction Atrial Fibrillation CAD COPD LUNG NODULE LV Systolic Dysfunction Pulmonary HTN - monitor H/H - transfuse as needed - inhaled bronchodilators prn - protonix - O2 to keep Spo2 >90% - DVT prophylaxis - Lasix prn DR JEFFERS
[2017-04-14] MEDS: ASPIRIN COATED 81 MG TABLET.EC PO SCH (09:55)
[2017-04-14] MEDS: PANTOPRAZOLE 40 MG TABLET (FP) PO SCH (09:56)
[2017-04-14] MEDS: CARVEDILOL 12.5 MG TABLET (FP) PO SCH ×2 (09:56→21:31)
[2017-04-14] MEDS ORDERED: DOCUSATE SODIUM 100 MG CAPSULE (FP) PO ONE (10:30)
[2017-04-14] MEDS: DORZOLAMIDE 2% HCL OPHTHALMIC SOLUTION 10 ML BOTTLE OU SCH (10:57)
[2017-04-14] MEDS: POLYETHYLENE GLYCOL 3350 119 GM BTL PO SCH (10:57)
[2017-04-14] MEDS ORDERED: PT OWN MED DRAWER 7, Y5N ONE (21:23)
[2017-04-14] MEDS: ISOSORBIDE MONONITRATE 30 MG TAB.SR.24H (FP) PO SCH (21:31)
[2017-04-14] MEDS: LATANOPROST 0.005% OPHTH SOLN 2.5ML BOTTLE OU SCH (21:31)
[2017-04-14] MEDS: DOCUSATE SODIUM 100 MG CAPSULE (FP) PO SCH (21:31)
[2017-04-14] MEDS: ATORVASTATIN CA 40 MG TABLET (FP) PO SCH (21:31)
[2017-04-15] MEDS: LEVOTHYROXINE NA 100 MCG TABLET (FP) PO SCH (06:22)
[2017-04-15 06:58] LABS: BASO % 1.2 % (0-2.0); EOS % 4.6 % (0-4.5); HEMATOCRIT 29.3 % (32.4-45.2); HEMOGLOBIN 9.6 GM/dL (10.7-15.3); LYMPH % 12.4 % (8-40); MCH 27.9 pg (25.7-33.7); MCHC 32.8 g/dl (32.0-36.0); MEAN CELL VOLUME 85.1 fl (80-96); MONO % 13.3 % (3.8-10.2); NEUT % 68.5 % (42.8-82.8); PLATELET COUNT 158 K/MM3 (134-434); RBC 3.45 M/mm3 (3.60-5.2); RDW 17.6 % (11.6-15.6); WHITE BLOOD COUNT 6.3 K/mm3 (4.0-10.0)
[2017-04-15 07:25] LABS: CHLORIDE 103 mmol/L (98-107); SODIUM 136 mmol/L (136-145)
[2017-04-15 07:31] LABS: ANION GAP 10 (8-16); BLOOD UREA NITROGEN 16 mg/dL (7-18); CALCIUM 8.4 mg/dL (8.5-10.1); CO2 23 mmol/L (21-32); CREATININE 0.8 mg/dL (0.55-1.02); GLUCOSE,RANDOM 90 mg/dL (74-106)
--- NOTE | 2017-04-15 09:26 | PN ---
Physical Exam: SUBJECTIVE: Patient seen and examined at bedside. No Events overnight. OBJECTIVE: Vital Signs Period Temp Pulse Resp BP Sys/Tenorio Pulse Ox Last 24 Hr 97.6 F-99.4 F 72-94 16-18 102-133/60-77 96 GENERAL: The patient is awake, alert, and fully oriented, in no acute distress. EYES: PERRL, extraocular movements intact, sclera anicteric, conjunctiva clear. NECK: No JVD present. LUNGS: Breath sounds equal, clear to auscultation bilaterally, no wheezes, no crackles, no accessory muscle use. HEART: Irregular rate and rhythm, S1, S2 without murmur, rub or gallop. ABDOMEN: SNTND EXTREMITIES: 2+ pulses, warm, well-perfused, 2+ edema. SKIN: Warm, dry, normal turgor, no rashes or lesions noted Laboratory Results - last 24 hr 04/15/17 04/15/17 06:40 06:40 WBC 6.3 RBC 3.45 L Hgb 9.6 L Hct 29.3 L MCV 85.1 MCH 27.9 MCHC 32.8 RDW 17.6 H Plt Count 158 MPV 8.0 Neutrophils % 68.5 Lymphocytes % 12.4 Monocytes % 13.3 H Eosinophils % 4.6 H Basophils % 1.2 Sodium 136 Potassium 4.0 Chloride 103 Carbon Dioxide 23 Anion Gap 10 BUN 16 Creatinine 0.8 Random Glucose 90 Calcium 8.4 L Active Medications Generic Name Dose Route Start Last Admin Trade Name Freq PRN Reason Stop Dose Admin Acetaminophen 650 mg 04/07/17 15:38 Tylenol - PO Q6H PRN FEVER OR PAIN Aspirin 81 mg 04/14/17 10:00 04/14/17 09:55 Ecotrin - PO 81 mg DAILY [facility]KE Administration Atorvastatin Calcium 40 mg 04/09/17 22:00 04/14/17 21:31 Lipitor - PO 40 mg HS LUKE Administration Carvedilol 12.5 mg 04/09/17 10:00 04/14/17 21:31 Coreg - PO 12.5 mg BID LUKE Administration Docusate Sodium 100 mg 04/14/17 22:00 04/14/17 21:31 Colace - PO 100 mg BID LUKE Administration Dorzolamide HCl 1 drop 04/09/17 10:00 04/14/17 10:57 Trusopt 2% OU 1 drp DAILY LUKE Administration Isosorbide Mononitrate 30 mg 04/09/17 22:00 04/14/17 21:31 Imdur - PO 30 mg HS LUKE Administration Latanoprost 1 drop 04/09/17 22:00 04/14/17 21:31 Xalatan 0.005% Eye Drops - OU 1 drop HS LUKE Administration Levothyroxine Sodium 100 mcg 04/10/17 07:00 04/15/17 06:22 Synthroid - PO 100 mcg AM LUKE Administration Pantoprazole Sodium 40 mg 04/14/17 10:00 04/14/17 09:56 Protonix - PO 40 mg DAILY [facility]KE Administration Polyethylene Glycol 17 gm 04/14/17 10:30 04/14/17 10:57 Miralax (For Daily Use) - PO 17 gm DAILY [facility] Administration ASSESSMENT/PLAN: A: 82 year old female with a PMH significant for HTN, HLD, CAD s/p NSTEMI and stent x 1 (09/2016) s/p positive stress MIBI (01/2017), PAD, atrial fibrillation , systolic heart failure, severe pHTN, COPD, and hypothyroidism. Admitted for GI bleed. P: Severe acute blood loss anemia - Due to GI bleed - Transfused 1u prbc 04/13 with appropriate rise - H/H stable - no events of GIB overnight - Restart ASA - Transfused 3U PRBC, 2uplts Systolic heart failure/Pulm HTN - monitor GI bleed - EGD/colonoscopy 04/10 shows erosions, colon polyps, mucosal splis in right colon, possible diverticula bleed - Due to above findings, will hold AC until outpt follow up d/w cardio/GI, at that point consider coumadin - PO protonix - No episodes of rectal bleeding s/p scope Thrombocytopenia - Resolved, wnl - Start ASA, defer plavix initiation to cards AMANDA - Resolved CAD s/p NSTEMI s/p EDSON - Continue Lipitor - Isosorbide 30mg Hs - Continue to hold ASA, Plavix Hypertension - Carvedilol 12.5mg BID Atrial fibrillation - Rate controlled on Coreg - Hold eliquis Hypothyroidism - Continue levothyroxine COPD - Stable Hypomagnesemia - Resolved Hypokalemia - Resolved Lactic acidosis - Likely due to GI bleed - Resolved Right lung nodule, 5mm - Pulm following F/E/N - Low Na diet - replete prn PPX - PT - SCDs - hold chemical prophylaxis 2/2 bleeding Visit type - Emergency Visit Emergency Visit: Yes ED Registration Date: 04/07/17 Care time: The patient presented to the Emergency Department on the above date and was hospitalized for further evaluation of their emergent condition. - New Patient This patient is new to me today: Yes Date on this admission: 04/16/17 - Critical Care Critical Care patient: No
[2017-04-15 10:04] LABS: URINE APPEARANCE CLEAR; URINE BILIRUBIN NEGATIVE (NEGATIVE); URINE BLOOD NEGATIVE (NEGATIVE); URINE COLOR YELLOW; URINE GLUCOSE (UA) NEGATIVE (NEGATIVE); URINE KETONE NEGATIVE (NEGATIVE); URINE LEUK ESTERASE TRACE (NEGATIVE); URINE NITRITE NEGATIVE (NEGATIVE); URINE PROTEIN NEGATIVE (NEGATIVE); URINE UROBILINOGEN NEGATIVE mg/dL (0.2-1.0)
[2017-04-15] MEDS: DORZOLAMIDE 2% HCL OPHTHALMIC SOLUTION 10 ML BOTTLE OU SCH (10:19)
[2017-04-15] MEDS: PANTOPRAZOLE 40 MG TABLET (FP) PO SCH (10:20)
[2017-04-15] MEDS: CARVEDILOL 12.5 MG TABLET (FP) PO SCH ×2 (10:20→21:24)
[2017-04-15] MEDS: DOCUSATE SODIUM 100 MG CAPSULE (FP) PO SCH ×2 (10:20→21:25)
[2017-04-15] MEDS: ASPIRIN COATED 81 MG TABLET.EC PO SCH (10:20)
[2017-04-15] MEDS: POLYETHYLENE GLYCOL 3350 119 GM BTL PO SCH (10:21)
--- NOTE | 2017-04-15 10:44 | PN ---
Progress Note, Physician History of Present Illness: pulmonary alert,nad,c/o sob,-cp - Current Medication List Current Medications: Active Medications Acetaminophen (Tylenol -) 650 mg PO Q6H PRN PRN Reason: FEVER OR PAIN Aspirin (Ecotrin -) 81 mg PO DAILY [facility] Last Admin: 04/15/17 10:20 Dose: 81 mg Atorvastatin Calcium (Lipitor -) 40 mg PO HS [facility] Last Admin: 04/14/17 21:31 Dose: 40 mg Carvedilol (Coreg -) 12.5 mg PO BID [facility] Last Admin: 04/15/17 10:20 Dose: 12.5 mg Docusate Sodium (Colace -) 100 mg PO BID [facility] Last Admin: 04/15/17 10:20 Dose: 100 mg Dorzolamide HCl (Trusopt 2%) 1 drop OU DAILY [facility] Last Admin: 04/15/17 10:19 Dose: 1 drp Isosorbide Mononitrate (Imdur -) 30 mg PO HS [facility] Last Admin: 04/14/17 21:31 Dose: 30 mg Latanoprost (Xalatan 0.005% Eye Drops -) 1 drop OU HS [facility] Last Admin: 04/14/17 21:31 Dose: 1 drop Levothyroxine Sodium (Synthroid -) 100 mcg PO AM [facility] Last Admin: 04/15/17 06:22 Dose: 100 mcg Pantoprazole Sodium (Protonix -) 40 mg PO DAILY [facility] Last Admin: 04/15/17 10:20 Dose: 40 mg Polyethylene Glycol (Miralax (For Daily Use) -) 17 gm PO DAILY [facility] Last Admin: 04/15/17 10:21 Dose: 17 gm - Objective Vital Signs: Vital Signs Temperature 99.4 F 04/15/17 07:50 Pulse Rate 83 04/15/17 07:50 Respiratory Rate 16 04/15/17 07:50 Blood Pressure 116/72 04/15/17 07:50 O2 Sat by Pulse Oximetry (%) 96 04/14/17 21:00 Constitutional: Yes: Well Nourished, Calm Eyes: Yes: WNL HENT: Yes: WNL Neck: Yes: WNL Cardiovascular: Yes: Pulse Irregular, S1, S2 Respiratory: Yes: CTA Bilaterally Gastrointestinal: Yes: Normal Bowel Sounds, Soft Extremities: Yes: WNL Edema: No Labs: CBC, BMP 04/15/17 06:40 12/26/17 06:40 INR, PTT INR 1.50 (0.82-1.09) H 04/09/17 05:25 Fibrinogen 295.0 mg/dL (238-498) 04/08/17 05:45 Assessment/Plan ASSESSMENT AND PLAN: Severe Anemia GI Bleed Acute Kidney Injury Lactic Acidosis improved Platelet Dysfunction Atrial Fibrillation CAD COPD LUNG NODULE LV Systolic Dysfunction Pulmonary HTN - monitor H/H - transfuse as needed - inhaled bronchodilators prn - protonix - O2 to keep Spo2 >90% - DVT prophylaxis - Lasix prn DR JEFFERS
--- NOTE | 2017-04-15 14:56 | PATH ---
Surgical Pathology Report Patient Name: JUANITA DIAZ [facility]. Rec. #: [id number] /Age/Gender: 1935 (Age: 82) / F Account: [id number] Location: 4 W TELEMETRY U Taken: 04/10/2017 Received: 04/11/2017 Reported: 04/15/2017 Physicians: PAZ Ware Specimen(s) Received A: BX ANTRUM EROSION B: BX HEPATIC FLEXURE POLYP Clinical History Preoperative diagnosis: GI bleeding, anemia Postoperative diagnosis: Erosive gastritis, diverticulosis, colonic polyp Final Diagnosis A. STOMACH, ANTRUM, EROSION, BIOPSY: GASTRIC ANTRAL MUCOSA WITH MILD CHRONIC GASTRITIS. IMMUNOHISTOCHEMICAL STAIN FOR H. PYLORI IS NEGATIVE. B. 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 TUMOR IS 1.5 MM FROM CAUTERIZED SURGICAL MARGIN. Comment: Office of Dr. Rosario informed that significant findings will be faxed (Aimee). Electronically Signed Dinora Graham M.D. Gross Description A. Received in formalin, labeled "antrum erosions" are 2 elias, irregular portions of soft tissue measuring 0.3 and 0.4 cm. in greatest dimension. The specimens are submitted in toto in one cassette. B. Received in formalin, labeled "hepatic flexure polyp" is a elias, polypoid portion of soft tissue measuring 0.8 cm. in greatest dimension. The specimen is submitted in toto in one cassette. 04/11/201704/11/2017
[2017-04-15] MEDS ORDERED: SENNOSIDES 8.6MG TABLET (FP) PO PRN (18:18)
[2017-04-15] MEDS: ATORVASTATIN CA 40 MG TABLET (FP) PO SCH (21:23)
[2017-04-15] MEDS: ISOSORBIDE MONONITRATE 30 MG TAB.SR.24H (FP) PO SCH (21:24)
[2017-04-15] MEDS: LATANOPROST 0.005% OPHTH SOLN 2.5ML BOTTLE OU SCH (21:25)
[2017-04-16] MEDS: LEVOTHYROXINE NA 100 MCG TABLET (FP) PO SCH (06:00)
[2017-04-16 08:02] LABS: HEMATOCRIT 28.1 % (32.4-45.2); MCH 27.3 pg (25.7-33.7); MEAN CELL VOLUME 85.5 fl (80-96); PLATELET COUNT 125 K/MM3 (134-434); RBC 3.28 M/mm3 (3.60-5.2); RDW 17.8 % (11.6-15.6); WHITE BLOOD COUNT 6.5 K/mm3 (4.0-10.0)
[2017-04-16 08:15] LABS: ANION GAP 10 (8-16); BLOOD UREA NITROGEN 17 mg/dL (7-18); CHLORIDE 103 mmol/L (98-107); CO2 23 mmol/L (21-32); CREATININE 0.8 mg/dL (0.55-1.02); GLUCOSE,RANDOM 84 mg/dL (74-106); POTASSIUM 4.2 mmol/L (3.5-5.1); SODIUM 136 mmol/L (136-145)
--- NOTE | 2017-04-16 09:01 | PN ---
Physical Exam: SUBJECTIVE: Patient seen and examined OBJECTIVE: Vital Signs Period Temp Pulse Resp BP Sys/Tenorio Pulse Ox Last 24 Hr 97.5 F-98.8 F 76-98 16-18 107-130/55-78 98 GENERAL: The patient is awake, alert, and fully oriented, in no acute distress. EYES: PERRL, extraocular movements intact, sclera anicteric, conjunctiva clear. Left eye ptosis. NECK: No JVD present. LUNGS: Breath sounds equal, scattered wheezes, no crackles, no accessory muscle use. HEART: Irregular rate and rhythm, S1, S2 without murmur, rub or gallop. ABDOMEN: SNTND EXTREMITIES: 2+ pulses, warm, well-perfused, 2+ edema. SKIN: Warm, dry, normal turgor, no rashes or lesions noted Laboratory Results - last 24 hr 04/15/17 04/16/17 04/16/17 09:00 05:05 05:05 WBC 6.5 RBC 3.28 L Hgb 9.0 L Hct 28.1 L MCV 85.5 MCH 27.3 MCHC 32.0 RDW 17.8 H Plt Count 125 L D MPV 8.0 Neutrophils % No Result Required. Lymphocytes % No Result Required. Sodium 136 Potassium 4.2 Chloride 103 Carbon Dioxide 23 Anion Gap 10 BUN 17 Creatinine 0.8 Random Glucose 84 Calcium 8.0 L Urine Color Yellow Urine Appearance Clear Urine pH 5.0 Ur Specific [place] 1.017 Urine Protein Negative Urine Glucose (UA) Negative Urine Ketones Negative Urine Blood Negative Urine Nitrite Negative Urine Bilirubin Negative Urine Urobilinogen Negative Ur Leukocyte Esterase Trace H Urine WBC (Auto) 3 Urine RBC (Auto) <1 Active Medications Generic Name Dose Route Start Last Admin Trade Name Freq PRN Reason Stop Dose Admin Acetaminophen 650 mg 04/07/17 15:38 Tylenol - PO Q6H PRN FEVER OR PAIN Aspirin 81 mg 04/14/17 10:00 04/15/17 10:20 Ecotrin - PO 81 mg DAILY [facility] Administration Atorvastatin Calcium 40 mg 04/09/17 22:00 04/15/17 21:23 Lipitor - PO 40 mg HS [facility]KE Administration Carvedilol 12.5 mg 04/09/17 10:00 04/15/17 21:24 Coreg - PO 12.5 mg BID LUKE Administration Docusate Sodium 100 mg 04/14/17 22:00 04/15/17 21:25 Colace - PO 100 mg BID LUKE Administration Dorzolamide HCl 1 drop 04/09/17 10:00 04/15/17 10:19 Trusopt 2% OU 1 drp DAILY [facility] Administration Furosemide 40 mg 04/16/17 08:59 Lasix Injection - IVPUSH 04/16/17 09:00 ONCE ONE Isosorbide Mononitrate 30 mg 04/09/17 22:00 04/15/17 21:24 Imdur - PO 30 mg HS LUKE Administration Latanoprost 1 drop 04/09/17 22:00 04/15/17 21:25 Xalatan 0.005% Eye Drops - OU 1 drop HS [facility] Administration Levothyroxine Sodium 100 mcg 04/10/17 07:00 04/16/17 06:00 Synthroid - PO 100 mcg AM [facility]KE Administration Pantoprazole Sodium 40 mg 04/14/17 10:00 04/15/17 10:20 Protonix - PO 40 mg DAILY [facility] Administration Polyethylene Glycol 17 gm 04/14/17 10:30 04/15/17 10:21 Miralax (For Daily Use) - PO 17 gm DAILY [facility] Administration Senna 2 tab 04/15/17 18:18 04/15/17 21:24 Senna - PO 2 tab HS PRN Administration CONSTIPATION ASSESSMENT/PLAN: A: 82 year old female with a PMH significant for HTN, HLD, CAD s/p NSTEMI and stent x 1 (09/2016) s/p positive stress MIBI (01/2017), PAD, atrial fibrillation , systolic heart failure, severe pHTN, COPD, and hypothyroidism. Admitted for GI bleed. P: Severe acute blood loss anemia - Due to GI bleed - Transfused 1u prbc 04/13 with appropriate rise - H/H stable - no events of GIB overnight - Restart ASA - Transfused 3U PRBC, 2u plts Systolic heart failure/Pulm HTN - Give x1 lasix 40 IV for sob - monitor GI bleed - EGD/colonoscopy 04/10 shows erosions, colon polyps, mucosal splis in right colon, possible diverticula bleed - Due to above findings, will hold AC until outpt follow up d/w cardio/GI, at that point consider coumadin - PO protonix Thrombocytopenia - Resolved, wnl - Start ASA, defer plavix initiation to cards AMANDA - Resolved CAD s/p NSTEMI s/p EDSON - Continue Lipitor - Isosorbide 30mg Hs - Continue to hold ASA, Plavix Hypertension - Carvedilol 12.5mg BID Atrial fibrillation - Rate controlled on Coreg - Hold eliquis Hypothyroidism - Continue levothyroxine COPD - Stable Hypomagnesemia - Resolved Hypokalemia - Resolved Lactic acidosis - Likely due to GI bleed - Resolved Right lung nodule, 5mm - Pulm following F/E/N PPX - PT - SCDs - hold chemical prophylaxis 2/2 bleeding Visit type - Emergency Visit Emergency Visit: Yes ED Registration Date: 04/07/17 Care time: The patient presented to the Emergency Department on the above date and was hospitalized for further evaluation of their emergent condition. - New Patient This patient is new to me today: No - Critical Care Critical Care patient: No
[2017-04-16] MEDS ORDERED: FUROSEMIDE 40 MG/4 ML INJECTABLE VIAL IVPUSH ONE (09:15)
[2017-04-16] MEDS: POLYETHYLENE GLYCOL 3350 119 GM BTL PO SCH (09:25)
[2017-04-16] MEDS: DOCUSATE SODIUM 100 MG CAPSULE (FP) PO SCH ×2 (09:25→21:16)
[2017-04-16] MEDS: ASPIRIN COATED 81 MG TABLET.EC PO SCH (09:25)
[2017-04-16] MEDS: PANTOPRAZOLE 40 MG TABLET (FP) PO SCH (09:25)
[2017-04-16] MEDS: CARVEDILOL 12.5 MG TABLET (FP) PO SCH ×2 (09:25→21:16)
[2017-04-16] MEDS: DORZOLAMIDE 2% HCL OPHTHALMIC SOLUTION 10 ML BOTTLE OU SCH (09:26)
--- NOTE | 2017-04-16 09:33 | PN ---
Progress Note, Physician - Current Medication List Current Medications: Active Medications Acetaminophen (Tylenol -) 650 mg PO Q6H PRN PRN Reason: FEVER OR PAIN Aspirin (Ecotrin -) 81 mg PO DAILY [facility] Last Admin: 04/15/17 10:20 Dose: 81 mg Atorvastatin Calcium (Lipitor -) 40 mg PO HS [facility] Last Admin: 04/15/17 21:23 Dose: 40 mg Carvedilol (Coreg -) 12.5 mg PO BID [facility] Last Admin: 04/15/17 21:24 Dose: 12.5 mg Docusate Sodium (Colace -) 100 mg PO BID [facility] Last Admin: 04/15/17 21:25 Dose: 100 mg Dorzolamide HCl (Trusopt 2%) 1 drop OU DAILY [facility] Last Admin: 04/15/17 10:19 Dose: 1 drp Isosorbide Mononitrate (Imdur -) 30 mg PO HS [facility] Last Admin: 04/15/17 21:24 Dose: 30 mg Latanoprost (Xalatan 0.005% Eye Drops -) 1 drop OU HS [facility] Last Admin: 04/15/17 21:25 Dose: 1 drop Levothyroxine Sodium (Synthroid -) 100 mcg PO AM [facility] Last Admin: 04/16/17 06:00 Dose: 100 mcg Pantoprazole Sodium (Protonix -) 40 mg PO DAILY [facility] Last Admin: 04/15/17 10:20 Dose: 40 mg Polyethylene Glycol (Miralax (For Daily Use) -) 17 gm PO DAILY [facility] Last Admin: 04/15/17 10:21 Dose: 17 gm Senna (Senna -) 2 tab PO HS PRN PRN Reason: CONSTIPATION Last Admin: 04/15/17 21:24 Dose: 2 tab - Objective Vital Signs: Vital Signs Temperature 98.2 F 04/16/17 08:00 Pulse Rate 77 04/16/17 08:00 Respiratory Rate 16 04/16/17 08:00 Blood Pressure 130/66 04/16/17 08:00 O2 Sat by Pulse Oximetry (%) 98 04/15/17 20:48 Labs: CBC, BMP 04/16/17 05:05 04/16/17 05:05 INR, PTT INR 1.50 (0.82-1.09) H 04/09/17 05:25 Fibrinogen 295.0 mg/dL (238-498) 04/08/17 05:45 Problem List - Problems (1) Severe mitral regurgitation Code(s): I34.0 - NONRHEUMATIC MITRAL (VALVE) INSUFFICIENCY (2) Anemia Code(s): D64.9 - ANEMIA, UNSPECIFIED Qualifiers: Anemia type: unspecified type Qualified Code(s): D64.9 - Anemia, unspecified (3) GI bleed Code(s): K92.2 - GASTROINTESTINAL HEMORRHAGE, UNSPECIFIED Qualifiers: GI bleed type/associated pathology: unspecified gastrointestinal hemorrhage type Qualified Code(s): K92.2 - Gastrointestinal hemorrhage, unspecified (4) Hypotension Code(s): I95.9 - HYPOTENSION, UNSPECIFIED Qualifiers: Hypotension type: unspecified hypotension type Qualified Code(s): I95.9 - Hypotension, unspecified (5) ASHD (arteriosclerotic heart disease) Code(s): I25.10 - ATHSCL HEART DISEASE OF [place] CORONARY ARTERY W/O ANG PCTRS (6) Acute on chronic systolic (congestive) heart failure Code(s): I50.23 - ACUTE ON CHRONIC SYSTOLIC (CONGESTIVE) HEART FAILURE (7) Anxiety Code(s): F41.9 - ANXIETY DISORDER, UNSPECIFIED (8) Atrial fibrillation Code(s): I48.91 - UNSPECIFIED ATRIAL FIBRILLATION Qualifiers: Atrial fibrillation type: unspecified Qualified Code(s): I48.91 - Unspecified atrial fibrillation (9) COPD (chronic obstructive pulmonary disease) Code(s): J44.9 - CHRONIC OBSTRUCTIVE PULMONARY DISEASE, UNSPECIFIED (10) Moderate to severe pulmonary hypertension Code(s): I27.2 - OTHER SECONDARY PULMONARY HYPERTENSION * DO NOT USE *
--- NOTE | 2017-04-16 09:33 | PN ---
Progress Note, Physician - Current Medication List Current Medications: Active Medications Acetaminophen (Tylenol -) 650 mg PO Q6H PRN PRN Reason: FEVER OR PAIN Aspirin (Ecotrin -) 81 mg PO DAILY [facility] Last Admin: 04/15/17 10:20 Dose: 81 mg Atorvastatin Calcium (Lipitor -) 40 mg PO HS [facility] Last Admin: 04/15/17 21:23 Dose: 40 mg Carvedilol (Coreg -) 12.5 mg PO BID [facility] Last Admin: 04/15/17 21:24 Dose: 12.5 mg Docusate Sodium (Colace -) 100 mg PO BID [facility] Last Admin: 04/15/17 21:25 Dose: 100 mg Dorzolamide HCl (Trusopt 2%) 1 drop OU DAILY [facility] Last Admin: 04/15/17 10:19 Dose: 1 drp Isosorbide Mononitrate (Imdur -) 30 mg PO HS [facility] Last Admin: 04/15/17 21:24 Dose: 30 mg Latanoprost (Xalatan 0.005% Eye Drops -) 1 drop OU HS [facility] Last Admin: 04/15/17 21:25 Dose: 1 drop Levothyroxine Sodium (Synthroid -) 100 mcg PO AM [facility] Last Admin: 04/16/17 06:00 Dose: 100 mcg Pantoprazole Sodium (Protonix -) 40 mg PO DAILY [facility] Last Admin: 04/15/17 10:20 Dose: 40 mg Polyethylene Glycol (Miralax (For Daily Use) -) 17 gm PO DAILY [facility] Last Admin: 04/15/17 10:21 Dose: 17 gm Senna (Senna -) 2 tab PO HS PRN PRN Reason: CONSTIPATION Last Admin: 04/15/17 21:24 Dose: 2 tab - Objective Vital Signs: Vital Signs Temperature 98.2 F 04/16/17 08:00 Pulse Rate 77 04/16/17 08:00 Respiratory Rate 16 04/16/17 08:00 Blood Pressure 130/66 04/16/17 08:00 O2 Sat by Pulse Oximetry (%) 98 04/15/17 20:48 Labs: CBC, BMP 04/16/17 05:05 04/16/17 05:05 INR, PTT INR 1.50 (0.82-1.09) H 04/09/17 05:25 Fibrinogen 295.0 mg/dL (238-498) 04/08/17 05:45 Problem List - Problems (1) Severe mitral regurgitation Code(s): I34.0 - NONRHEUMATIC MITRAL (VALVE) INSUFFICIENCY (2) Anemia Code(s): D64.9 - ANEMIA, UNSPECIFIED Qualifiers: Anemia type: unspecified type Qualified Code(s): D64.9 - Anemia, unspecified (3) GI bleed Code(s): K92.2 - GASTROINTESTINAL HEMORRHAGE, UNSPECIFIED Qualifiers: GI bleed type/associated pathology: unspecified gastrointestinal hemorrhage type Qualified Code(s): K92.2 - Gastrointestinal hemorrhage, unspecified (4) Hypotension Code(s): I95.9 - HYPOTENSION, UNSPECIFIED Qualifiers: Hypotension type: unspecified hypotension type Qualified Code(s): I95.9 - Hypotension, unspecified (5) ASHD (arteriosclerotic heart disease) Code(s): I25.10 - ATHSCL HEART DISEASE OF [place] CORONARY ARTERY W/O ANG PCTRS (6) Acute on chronic systolic (congestive) heart failure Code(s): I50.23 - ACUTE ON CHRONIC SYSTOLIC (CONGESTIVE) HEART FAILURE (7) Anxiety Code(s): F41.9 - ANXIETY DISORDER, UNSPECIFIED (8) Atrial fibrillation Code(s): I48.91 - UNSPECIFIED ATRIAL FIBRILLATION Qualifiers: Atrial fibrillation type: unspecified Qualified Code(s): I48.91 - Unspecified atrial fibrillation (9) COPD (chronic obstructive pulmonary disease) Code(s): J44.9 - CHRONIC OBSTRUCTIVE PULMONARY DISEASE, UNSPECIFIED (10) Moderate to severe pulmonary hypertension Code(s): I27.2 - OTHER SECONDARY PULMONARY HYPERTENSION * DO NOT USE *
--- NOTE | 2017-04-16 09:34 | PN ---
Progress Note, Physician Chief Complaint: Pt A&Ox3 easily dyspneic; legs more swollen. History of Present Illness: The patient is an 82 year old white female with a history of triple vessel CAD ( s/p mid-RCA DEstent 2015; no PCI needed on coronary angiogram 01/2017, but noted severe MR, mild-moderate LV dysfunction, and moderately severe pulmonary HTN; pt refused trans-apical mitral valve replacement), afib, COPD, HTN, HLD, who presents for evaluation of generalized weakness and shortness of breath. The patient reports a several day history of generalized weakness with associated shortness of breath at rest worse with exertion. She noted some dizziness and worsening symptoms earlier this morning prompting her presentation to the ED for evaluation. She notes that she has been constipated over the past few days, but noted some dark black stools yesterday evening. She states that she has had similar symptoms in the past. She denies any headache, cough, fevers, chest pain, abdominal pain, nausea, vomiting, or changes with urination. She notes that she has been very cold over the past few days. She denies any recent weight gain or leg swelling. - Current Medication List Current Medications: Active Medications Acetaminophen (Tylenol -) 650 mg PO Q6H PRN PRN Reason: FEVER OR PAIN Aspirin (Ecotrin -) 81 mg PO DAILY [facility] Last Admin: 04/15/17 10:20 Dose: 81 mg Atorvastatin Calcium (Lipitor -) 40 mg PO HS [facility] Last Admin: 04/15/17 21:23 Dose: 40 mg Carvedilol (Coreg -) 12.5 mg PO BID [facility] Last Admin: 04/15/17 21:24 Dose: 12.5 mg Docusate Sodium (Colace -) 100 mg PO BID [facility] Last Admin: 04/15/17 21:25 Dose: 100 mg Dorzolamide HCl (Trusopt 2%) 1 drop OU DAILY [facility] Last Admin: 04/15/17 10:19 Dose: 1 drp Isosorbide Mononitrate (Imdur -) 30 mg PO HS [facility] Last Admin: 04/15/17 21:24 Dose: 30 mg Latanoprost (Xalatan 0.005% Eye Drops -) 1 drop OU HS [facility] Last Admin: 04/15/17 21:25 Dose: 1 drop Levothyroxine Sodium (Synthroid -) 100 mcg PO AM [facility] Last Admin: 12/27/17 06:00 Dose: 100 mcg Pantoprazole Sodium (Protonix -) 40 mg PO DAILY [facility] Last Admin: 04/15/17 10:20 Dose: 40 mg Polyethylene Glycol (Miralax (For Daily Use) -) 17 gm PO DAILY [facility] Last Admin: 04/15/17 10:21 Dose: 17 gm Senna (Senna -) 2 tab PO HS PRN PRN Reason: CONSTIPATION Last Admin: 04/15/17 21:24 Dose: 2 tab - Objective Vital Signs: Vital Signs Temperature 98.2 F 04/16/17 08:00 Pulse Rate 77 04/16/17 08:00 Respiratory Rate 16 04/16/17 08:00 Blood Pressure 130/66 04/16/17 08:00 O2 Sat by Pulse Oximetry (%) 98 04/15/17 20:48 Constitutional: Yes: Anxious Eyes: Yes: WNL HENT: Yes: WNL Neck: Yes: WNL Cardiovascular: Yes: Pulse Irregular, S1 (varies in intensity) Respiratory: Yes: Diminished Gastrointestinal: Yes: Soft ...Rectal Exam: Yes: Deferred Genitourinary: No: Anuria Breast(s): Yes: WNL Musculoskeletal: Yes: Muscle Weakness Extremities: Yes: Cool Edema: Yes Edema: LLE: 1+, RLE: 1+ Peripheral Pulses WNL: No Peripheral Pulses: Left Doralis Pedis: 1+, Right Dorsalis Pedis: 1+ Integumentary: Yes: WNL Neurological: Yes: Alert, Oriented, Weakness Psychiatric: Yes: WNL Labs: CBC, BMP 04/16/17 05:05 04/16/17 05:05 INR, PTT INR 1.50 (0.82-1.09) H 04/09/17 05:25 Fibrinogen 295.0 mg/dL (238-498) 04/08/17 05:45 - ....Imaging Chest X-ray: Pending EKG: Image Reviewed (AF) Problem List - Problems (1) Severe mitral regurgitation Assessment/Plan: 01/2017 coronary angiogram showed triple vessel CAD (no PCI required); hx mid- RCA-->drug-eleuting stent 2015. Pt refused trans-apical mitral valve replacement at the time. She has been on furosemide, but this has been held presently due to marked rise in BUN/Cr, and hypotension. F/u CXR;Is and Os, daily weight, BUN/Cr, electrolytes. Code(s): I34.0 - NONRHEUMATIC MITRAL (VALVE) INSUFFICIENCY (2) Anemia Assessment/Plan: undergoing GI workup; f/u results of EGD and colonoscopy. Code(s): D64.9 - ANEMIA, UNSPECIFIED Qualifiers: Anemia type: unspecified type Qualified Code(s): D64.9 - Anemia, unspecified (3) GI bleed Assessment/Plan: F/u EGD and colonoscopy. Code(s): K92.2 - GASTROINTESTINAL HEMORRHAGE, UNSPECIFIED Qualifiers: GI bleed type/associated pathology: unspecified gastrointestinal hemorrhage type Qualified Code(s): K92.2 - Gastrointestinal hemorrhage, unspecified (4) Hypotension Assessment/Plan: Resolved after PRBCs; on carvedilol, Imdur Hold fluids pending CXR; may require diuretics. Code(s): I95.9 - HYPOTENSION, UNSPECIFIED Qualifiers: Hypotension type: unspecified hypotension type Qualified Code(s): I95.9 - Hypotension, unspecified (5) ASHD (arteriosclerotic heart disease) Assessment/Plan: cc time spent assessing pt and furmulating plan: 45 mnutes. Code(s): I25.10 - ATHSCL HEART DISEASE OF [place] CORONARY ARTERY W/O ANG PCTRS (6) Acute on chronic systolic (congestive) heart failure Assessment/Plan: CXR to r/o worsening CHF. Diruretics; hold fluids. F/u BUN/Cr, Is and Os, daily weight, electrolytes. Code(s): I50.23 - ACUTE ON CHRONIC SYSTOLIC (CONGESTIVE) HEART FAILURE (7) Anxiety Code(s): F41.9 - ANXIETY DISORDER, UNSPECIFIED (8) Atrial fibrillation Assessment/Plan: anticoagulation is problematic given gastric erosions and severe GI bleed, though ideally she should be on warfarin or a NOAC for AF. On ASA for CAD; may hold clopidogrel (stent > one year). F/u GI and hematollogy. Code(s): I48.91 - UNSPECIFIED ATRIAL FIBRILLATION Qualifiers: Atrial fibrillation type: unspecified Qualified Code(s): I48.91 - Unspecified atrial fibrillation (9) COPD (chronic obstructive pulmonary disease) Code(s): J44.9 - CHRONIC OBSTRUCTIVE PULMONARY DISEASE, UNSPECIFIED (10) Moderate to severe pulmonary hypertension Code(s): I27.2 - OTHER SECONDARY PULMONARY HYPERTENSION * DO NOT USE *
--- NOTE | 2017-04-16 11:05 | PN ---
Progress Note, Physician History of Present Illness: PULMONARY ALERT,COMFORTABLE AT REST,+WATERS - Current Medication List Current Medications: Active Medications Acetaminophen (Tylenol -) 650 mg PO Q6H PRN PRN Reason: FEVER OR PAIN Aspirin (Ecotrin -) 81 mg PO DAILY [facility] Last Admin: 04/16/17 09:25 Dose: 81 mg Atorvastatin Calcium (Lipitor -) 40 mg PO HS [facility] Last Admin: 04/15/17 21:23 Dose: 40 mg Carvedilol (Coreg -) 12.5 mg PO BID [facility] Last Admin: 04/16/17 09:25 Dose: 12.5 mg Docusate Sodium (Colace -) 100 mg PO BID [facility] Last Admin: 04/16/17 09:25 Dose: 100 mg Dorzolamide HCl (Trusopt 2%) 1 drop OU DAILY [facility] Last Admin: 04/16/17 09:26 Dose: 1 drp Isosorbide Mononitrate (Imdur -) 30 mg PO HS [facility] Last Admin: 04/15/17 21:24 Dose: 30 mg Latanoprost (Xalatan 0.005% Eye Drops -) 1 drop OU HS [facility] Last Admin: 04/15/17 21:25 Dose: 1 drop Levothyroxine Sodium (Synthroid -) 100 mcg PO AM [facility] Last Admin: 04/16/17 06:00 Dose: 100 mcg Pantoprazole Sodium (Protonix -) 40 mg PO DAILY [facility] Last Admin: 04/16/17 09:25 Dose: 40 mg Polyethylene Glycol (Miralax (For Daily Use) -) 17 gm PO DAILY [facility] Last Admin: 04/16/17 09:25 Dose: 17 gm Senna (Senna -) 2 tab PO HS PRN PRN Reason: CONSTIPATION Last Admin: 04/15/17 21:24 Dose: 2 tab - Objective Vital Signs: Vital Signs Temperature 98.2 F 04/16/17 08:00 Pulse Rate 77 04/16/17 08:00 Respiratory Rate 16 04/16/17 08:00 Blood Pressure 130/66 04/16/17 08:00 O2 Sat by Pulse Oximetry (%) 98 04/15/17 20:48 Constitutional: Yes: Well Nourished, Calm Eyes: Yes: WNL HENT: Yes: WNL Neck: Yes: WNL Cardiovascular: Yes: Pulse Irregular, S1, S2 Respiratory: Yes: CTA Bilaterally Gastrointestinal: Yes: Normal Bowel Sounds, Soft Extremities: Yes: WNL Edema: No Labs: CBC, BMP 04/16/17 05:05 04/16/17 05:05 INR, PTT INR 1.50 (0.82-1.09) H 04/09/17 05:25 Fibrinogen 295.0 mg/dL (238-498) 04/08/17 05:45 Assessment/Plan ASSESSMENT AND PLAN: Severe Anemia corrected GI Bleed Acute Kidney Injury Lactic Acidosis improved Platelet Dysfunction Atrial Fibrillation CAD COPD LUNG NODULE LV Systolic Dysfunction Pulmonary HTN - monitor H/H - transfuse as needed - inhaled bronchodilators prn - protonix - O2 to keep Spo2 >90% - DVT prophylaxis - Lasix prn DR JEFFERS
[2017-04-16 13:27] LABS: ANISOCYTOSIS 1+; MACROCYTOSIS 0; PLATELET ESTIMATE DECREASED
--- NOTE | 2017-04-16 15:43 | PN ---
Progress Note, Physician History of Present Illness: 82-year-old female with past medical history of hypertension, COPD, atrial fibrillation on requests, CHF presents to the emergency department for shortness of breath for several days and most recently dark stools. Patient denies midsternal chest pain. Has been feeling intermittently constipated and dizzy. Chills, eyes fevers, chills, cough, vomiting, dysuria. PMH NSTEMI: (coronary angiogram 10/20/2015: triple vessel disease : Lt Main: 40%; LAD proximal 40%, mid 70%, distal 50%; LCx ostial 80%, proximal 60%, mid 95%, OM2 60 %; Ramus intermedius 70%; RCA proximal 40%, mid 95% hazy lesion, distal 60%; reduced LVEF, with apical akinesis and mid-inferior wall severe hypokinesis);s/ p mid-RCA DEstent 2015; no PCI needed on coronary angiogram 01/2017, but noted severe MR, mild-moderate LV dysfunction, and moderately severe pulmonary HTN; pt refused trans-septal mitral valve replacement), PAD (bilateral SFA 30%) systolic CHF (mild LV dysfunction on 02/2016 ECHO; severe MR) Severe pulmonary HTN Chronic low back pain Hyperlipidemia Hypertension Hypothyroidism PAD scoliosis - Current Medication List Current Medications: Active Medications Acetaminophen (Tylenol -) 650 mg PO Q6H PRN PRN Reason: FEVER OR PAIN Aspirin (Ecotrin -) 81 mg PO DAILY [facility] Last Admin: 04/16/17 09:25 Dose: 81 mg Atorvastatin Calcium (Lipitor -) 40 mg PO [facility] Last Admin: 04/15/17 21:23 Dose: 40 mg Carvedilol (Coreg -) 12.5 mg PO BID [facility] Last Admin: 04/16/17 09:25 Dose: 12.5 mg Docusate Sodium (Colace -) 100 mg PO BID [facility] Last Admin: 04/16/17 09:25 Dose: 100 mg Dorzolamide HCl (Trusopt 2%) 1 drop OU DAILY [facility] Last Admin: 04/16/17 09:26 Dose: 1 drp Isosorbide Mononitrate (Imdur -) 30 mg PO HS [facility] Last Admin: 04/15/17 21:24 Dose: 30 mg Latanoprost (Xalatan 0.005% Eye Drops -) 1 drop OU HS [facility] Last Admin: 04/15/17 21:25 Dose: 1 drop Levothyroxine Sodium (Synthroid -) 100 mcg PO AM [facility] Last Admin: 04/16/17 06:00 Dose: 100 mcg Pantoprazole Sodium (Protonix -) 40 mg PO DAILY [facility] Last Admin: 04/16/17 09:25 Dose: 40 mg Polyethylene Glycol (Miralax (For Daily Use) -) 17 gm PO DAILY [facility] Last Admin: 04/16/17 09:25 Dose: 17 gm Senna (Senna -) 2 tab PO HS PRN PRN Reason: CONSTIPATION Last Admin: 04/15/17 21:24 Dose: 2 tab - Objective Vital Signs: Vital Signs Temperature 96 F L 04/16/17 14:00 Pulse Rate 77 04/16/17 08:00 Respiratory Rate 16 04/16/17 14:00 Blood Pressure 120/78 04/16/17 14:00 O2 Sat by Pulse Oximetry (%) 99 04/16/17 09:00 Eyes: Yes: WNL, Conjunctiva Clear, EOM Intact HENT: Yes: WNL, Atraumatic, Normocephalic Neck: Yes: WNL, Supple, Trachea Midline Cardiovascular: Yes: WNL, Regular Rate and Rhythm Respiratory: Yes: WNL, Regular, CTA Bilaterally Gastrointestinal: Yes: WNL, Normal Bowel Sounds Genitourinary: Yes: WNL Musculoskeletal: Yes: WNL Extremities: Yes: WNL Edema: Yes Integumentary: Yes: WNL Neurological: Yes: WNL, Alert, Oriented ...Motor Strength: WNL Psychiatric: Yes: WNL Labs: CBC, BMP 04/16/17 05:05 04/16/17 05:05 INR, PTT INR 1.50 (0.82-1.09) H 04/09/17 05:25 Fibrinogen 295.0 mg/dL (238-498) 04/08/17 05:45 Problem List - Problems (1) AMANDA (acute kidney injury) Code(s): N17.9 - ACUTE KIDNEY FAILURE, UNSPECIFIED (2) Anemia Code(s): D64.9 - ANEMIA, UNSPECIFIED Qualifiers: Anemia type: unspecified type Qualified Code(s): D64.9 - Anemia, unspecified (3) GI bleed Code(s): K92.2 - GASTROINTESTINAL HEMORRHAGE, UNSPECIFIED Qualifiers: GI bleed type/associated pathology: unspecified gastrointestinal hemorrhage type Qualified Code(s): K92.2 - Gastrointestinal hemorrhage, unspecified (4) Hypotension Code(s): I95.9 - HYPOTENSION, UNSPECIFIED Qualifiers: Hypotension type: unspecified hypotension type Qualified Code(s): I95.9 - Hypotension, unspecified (5) ASHD (arteriosclerotic heart disease) Code(s): I25.10 - ATHSCL HEART DISEASE OF [place] CORONARY ARTERY W/O ANG PCTRS (6) Acute on chronic systolic (congestive) heart failure Code(s): I50.23 - ACUTE ON CHRONIC SYSTOLIC (CONGESTIVE) HEART FAILURE (7) Ankle pain, left Code(s): M25.572 - PAIN IN LEFT ANKLE AND JOINTS OF LEFT FOOT (8) Anxiety Code(s): F41.9 - ANXIETY DISORDER, UNSPECIFIED (9) Atrial fibrillation Code(s): I48.91 - UNSPECIFIED ATRIAL FIBRILLATION Qualifiers: Atrial fibrillation type: unspecified Qualified Code(s): I48.91 - Unspecified atrial fibrillation (10) COPD (chronic obstructive pulmonary disease) Code(s): J44.9 - CHRONIC OBSTRUCTIVE PULMONARY DISEASE, UNSPECIFIED (11) COPD exacerbation Code(s): J44.1 - CHRONIC OBSTRUCTIVE PULMONARY DISEASE W (ACUTE) EXACERBATION (12) COPD mixed type Code(s): J44.9 - CHRONIC OBSTRUCTIVE PULMONARY DISEASE, UNSPECIFIED (13) Chest pain Code(s): R07.9 - CHEST PAIN, UNSPECIFIED Qualifiers: Chest pain type: unspecified Qualified Code(s): R07.9 - Chest pain, unspecified (14) Community acquired pneumonia Code(s): J18.9 - PNEUMONIA, UNSPECIFIED ORGANISM (15) DVT prophylaxis Code(s): [id number] - (16) Elevated glucose Code(s): R73.09 - OTHER ABNORMAL GLUCOSE (17) Elevated lactic acid level Code(s): E87.2 - ACIDOSIS (18) Elevated troponin Code(s): R79.89 - OTHER SPECIFIED ABNORMAL FINDINGS OF BLOOD CHEMISTRY (19) Elevated troponin I level Code(s): R79.89 - OTHER SPECIFIED ABNORMAL FINDINGS OF BLOOD CHEMISTRY (20) [place] cardiac risk >20% in next 10 years Code(s): Z91.89 - OTH PERSONAL RISK FACTORS, NOT ELSEWHERE CLASSIFIED (21) Hypertension Code(s): I10 - ESSENTIAL (PRIMARY) HYPERTENSION (22) Hyponatremia Code(s): E87.1 - HYPO-OSMOLALITY AND HYPONATREMIA (23) Lactic acid acidosis Code(s): E87.2 - ACIDOSIS (24) Moderate to severe pulmonary hypertension Code(s): I27.2 - OTHER SECONDARY PULMONARY HYPERTENSION * DO NOT USE * (25) NSTEMI (non-ST elevated myocardial infarction) Code(s): I21.4 - NON-ST ELEVATION (NSTEMI) MYOCARDIAL INFARCTION (26) Plantar fasciitis Code(s): M72.2 - PLANTAR FASCIAL FIBROMATOSIS (27) Pneumonia Code(s): J18.9 - PNEUMONIA, UNSPECIFIED ORGANISM (28) Respiratory distress Code(s): R06.00 - DYSPNEA, UNSPECIFIED (29) Respiratory failure Code(s): J96.90 - RESPIRATORY FAILURE, UNSP, UNSP W HYPOXIA OR HYPERCAPNIA (30) Sepsis Code(s): A41.9 - SEPSIS, UNSPECIFIED ORGANISM (31) Sepsis due to pneumonia Code(s): J18.9 - PNEUMONIA, UNSPECIFIED ORGANISM; A41.9 - SEPSIS, UNSPECIFIED ORGANISM Assessment/Plan - Problems (1) Severe mitral regurgitation Assessment/Plan: 01/2017 coronary angiogram showed triple vessel CAD (no PCI required); hx mid- RCA-->drug-eleuting stent 2015. Pt refused trans-apical mitral valve replacement at the time. She has been on furosemide, but this has been held presently due to marked rise in BUN/Cr, and hypotension. F/u CXR;Is and Os, daily weight, BUN/Cr, electrolytes. Code(s): I34.0 - NONRHEUMATIC MITRAL (VALVE) INSUFFICIENCY (2) Anemia Assessment/Plan: undergoing GI workup; f/u results of EGD and colonoscopy. Code(s): D64.9 - ANEMIA, UNSPECIFIED Qualifiers: Anemia type: unspecified type Qualified Code(s): D64.9 - Anemia, unspecified (3) GI bleed Assessment/Plan: F/u EGD and colonoscopy. Code(s): K92.2 - GASTROINTESTINAL HEMORRHAGE, UNSPECIFIED Qualifiers: GI bleed type/associated pathology: unspecified gastrointestinal hemorrhage type Qualified Code(s): K92.2 - Gastrointestinal hemorrhage, unspecified (4) Hypotension Assessment/Plan: Resolved after PRBCs; on carvedilol, Imdur Hold fluids pending CXR; may require diuretics. Code(s): I95.9 - HYPOTENSION, UNSPECIFIED Qualifiers: Hypotension type: unspecified hypotension type Qualified Code(s): I95.9 - Hypotension, unspecified (5) ASHD (arteriosclerotic heart disease) Assessment/Plan: cc time spent assessing pt and furmulating plan: 45 mnutes. Code(s): I25.10 - ATHSCL HEART DISEASE OF [place] CORONARY ARTERY W/O ANG PCTRS (6) Acute on chronic systolic (congestive) heart failure Assessment/Plan: CXR to r/o worsening CHF. Diruretics; hold fluids. F/u BUN/Cr, Is and Os, daily weight, electrolytes. Code(s): I50.23 - ACUTE ON CHRONIC SYSTOLIC (CONGESTIVE) HEART FAILURE (7) Anxiety Code(s): F41.9 - ANXIETY DISORDER, UNSPECIFIED (8) Atrial fibrillation Assessment/Plan: anticoagulation is problematic given gastric erosions and severe GI bleed, though ideally she should be on warfarin or a NOAC for AF. On ASA for CAD; may hold clopidogrel (stent > one year). F/u GI and hematollogy. Code(s): I48.91 - UNSPECIFIED ATRIAL FIBRILLATION Qualifiers: Atrial fibrillation type: unspecified Qualified Code(s): I48.91 - Unspecified atrial fibrillation (9) COPD (chronic obstructive pulmonary disease) Code(s): J44.9 - CHRONIC OBSTRUCTIVE PULMONARY DISEASE, UNSPECIFIED (10) Moderate to severe pulmonary hypertension Code(s): I27.2 - OTHER SECONDARY PULMONARY HYPERTENSION * DO NOT USE *
--- NOTE | 2017-04-16 16:30 | PN ---
Progress Note (short form) - Note Progress Note: Pt seen and examined Cor: RSR, No murmurs, No gallops Lungs: Clear to P&A Abd: Soft, Normal bowel sounds, No organomegaly Ext:No significant edema Temp Pulse Resp BP Pulse Ox 96 F L 77 16 120/78 99 04/16/17 14:00 04/16/17 08:00 04/16/17 14:00 04/16/17 14:00 04/16/17 09:00 CBC, BMP 04/16/17 05:05 04/16/17 05:05 Current Medications Generic Name Dose Route Start Last Admin Trade Name Freq PRN Reason Stop Dose Admin Acetaminophen 650 mg 04/07/17 15:38 Tylenol - PO Q6H PRN FEVER OR PAIN Aspirin 81 mg 04/14/17 10:00 04/16/17 09:25 Ecotrin - PO 81 mg DAILY [facility] Administration Atorvastatin Calcium 40 mg 04/09/17 22:00 04/15/17 21:23 Lipitor - PO 40 mg HS [facility] Administration Carvedilol 12.5 mg 04/09/17 10:00 04/16/17 09:25 Coreg - PO 12.5 mg BID [facility] Administration Docusate Sodium 100 mg 04/14/17 22:00 04/16/17 09:25 Colace - PO 100 mg BID [facility] Administration Dorzolamide HCl 1 drop 04/09/17 10:00 04/16/17 09:26 Trusopt 2% OU 1 drp DAILY [facility] Administration Isosorbide Mononitrate 30 mg 04/09/17 22:00 04/15/17 21:24 Imdur - PO 30 mg HS [facility] Administration Latanoprost 1 drop 04/09/17 22:00 04/15/17 21:25 Xalatan 0.005% Eye Drops - OU 1 drop HS [facility] Administration Levothyroxine Sodium 100 mcg 04/10/17 07:00 04/16/17 06:00 Synthroid - PO 100 mcg AM [facility] Administration Pantoprazole Sodium 40 mg 04/14/17 10:00 04/16/17 09:25 Protonix - PO 40 mg DAILY [facility] Administration Polyethylene Glycol 17 gm 04/14/17 10:30 04/16/17 09:25 Miralax (For Daily Use) - PO 17 gm DAILY [facility] Administration Senna 2 tab 04/15/17 18:18 04/15/17 21:24 Senna - PO 2 tab HS PRN Administration CONSTIPATION 82 y/o patient with Severe Anemia s/p PRBC transfusions s/p GI w/u Stable Hct Atrial Fibrillation CAD COPD LV Systolic Dysfunction Pulmonary HTN stable hgb pathology reports reviewed, colon hepatic flexure polyp with superficial infil adenoca,1.5mm free from margin, TO BE discussed with the patient and will also d /w GI. d/w Cardiology , stable hgg now, to initiate pradaxa 150mg bid. will follow
[2017-04-16] MEDS: ISOSORBIDE MONONITRATE 30 MG TAB.SR.24H (FP) PO SCH (21:16)
[2017-04-16] MEDS: ATORVASTATIN CA 40 MG TABLET (FP) PO SCH (21:16)
[2017-04-16] MEDS: LATANOPROST 0.005% OPHTH SOLN 2.5ML BOTTLE OU SCH (21:17)
[2017-04-17] MEDS: LEVOTHYROXINE NA 100 MCG TABLET (FP) PO SCH (06:01)
[2017-04-17 07:23] LABS: BASO % 1.3 % (0-2.0); EOS % 4.4 % (0-4.5); HEMATOCRIT 28.4 % (32.4-45.2); HEMOGLOBIN 9.1 GM/dL (10.7-15.3); LYMPH % 14.4 % (8-40); MCH 27.6 pg (25.7-33.7); MCHC 32.1 g/dl (32.0-36.0); MEAN CELL VOLUME 86.1 fl (80-96); NEUT % 64.9 % (42.8-82.8); PLATELET COUNT 136 K/MM3 (134-434); RDW 18.4 % (11.6-15.6); WHITE BLOOD COUNT 5.1 K/mm3 (4.0-10.0)
[2017-04-17 07:50] LABS: ANION GAP 7 (8-16); BLOOD UREA NITROGEN 17 mg/dL (7-18); CALCIUM 7.9 mg/dL (8.5-10.1); CHLORIDE 103 mmol/L (98-107); CO2 26 mmol/L (21-32); CREATININE 0.8 mg/dL (0.55-1.02); GLUCOSE,RANDOM 88 mg/dL (74-106); POTASSIUM 4.1 mmol/L (3.5-5.1); SODIUM 136 mmol/L (136-145)
[2017-04-17] MEDS ORDERED: PT OWN MED DRAWER 7, Y5N ONE ×4 (09:55→21:16)
[2017-04-17] MEDS: PANTOPRAZOLE 40 MG TABLET (FP) PO SCH (10:14)
[2017-04-17] MEDS: DOCUSATE SODIUM 100 MG CAPSULE (FP) PO SCH ×2 (10:14→21:11)
[2017-04-17] MEDS: ASPIRIN COATED 81 MG TABLET.EC PO SCH (10:14)
[2017-04-17] MEDS: CARVEDILOL 12.5 MG TABLET (FP) PO SCH ×2 (10:14→21:11)
[2017-04-17] MEDS: ENOXAPARIN NA (PORCINE) 60 MG/0.6 ML DISP.SYRIN SQ SCH ×2 (10:14→21:11)
[2017-04-17] MEDS: POLYETHYLENE GLYCOL 3350 119 GM BTL PO SCH (10:15)
[2017-04-17] MEDS: DORZOLAMIDE 2% HCL OPHTHALMIC SOLUTION 10 ML BOTTLE OU SCH (10:15)
--- NOTE | 2017-04-17 12:11 | PN ---
Progress Note, Physician History of Present Illness: PULMONARY ALERT,NO DISTRESS,-CP,SOB AT REST. COLON BX SUPERFICIAL INFILTRATING + [place] CA - Current Medication List Current Medications: Active Medications Acetaminophen (Tylenol -) 650 mg PO Q6H PRN PRN Reason: FEVER OR PAIN Aspirin (Ecotrin -) 81 mg PO DAILY [facility] Last Admin: 04/17/17 10:14 Dose: 81 mg Atorvastatin Calcium (Lipitor -) 40 mg PO HS [facility] Last Admin: 04/16/17 21:16 Dose: 40 mg Carvedilol (Coreg -) 12.5 mg PO BID [facility] Last Admin: 04/17/17 10:14 Dose: 12.5 mg Docusate Sodium (Colace -) 100 mg PO BID [facility] Last Admin: 04/17/17 10:14 Dose: 100 mg Dorzolamide HCl (Trusopt 2%) 1 drop OU DAILY [facility] Last Admin: 04/17/17 10:15 Dose: 1 drp Enoxaparin Sodium (Lovenox -) 60 mg SQ BID [facility] Last Admin: 04/17/17 10:14 Dose: 60 mg Isosorbide Mononitrate (Imdur -) 30 mg PO HS [facility] Last Admin: 04/16/17 21:16 Dose: 30 mg Latanoprost (Xalatan 0.005% Eye Drops -) 1 drop OU HS [facility] Last Admin: 04/16/17 21:17 Dose: 1 drop Levothyroxine Sodium (Synthroid -) 100 mcg PO AM [facility] Last Admin: 04/17/17 06:01 Dose: 100 mcg Pantoprazole Sodium (Protonix -) 40 mg PO DAILY [facility] Last Admin: 04/17/17 10:14 Dose: 40 mg Polyethylene Glycol (Miralax (For Daily Use) -) 17 gm PO DAILY [facility] Last Admin: 04/17/17 10:15 Dose: Not Given Senna (Senna -) 2 tab PO HS PRN PRN Reason: CONSTIPATION Last Admin: 04/15/17 21:24 Dose: 2 tab - Objective Vital Signs: Vital Signs Temperature 98.1 F 04/17/17 10:00 Pulse Rate 75 04/17/17 10:00 Respiratory Rate 20 04/17/17 10:00 Blood Pressure 112/73 04/17/17 10:00 O2 Sat by Pulse Oximetry (%) 96 04/17/17 10:00 Constitutional: Yes: Well Nourished, Calm Eyes: Yes: WNL HENT: Yes: WNL Neck: Yes: WNL Cardiovascular: Yes: Pulse Irregular, S1, S2 Respiratory: Yes: CTA Bilaterally Gastrointestinal: Yes: Normal Bowel Sounds, Soft Extremities: Yes: WNL Edema: Yes Edema: LLE: Trace, RLE: Trace Labs: CBC, BMP 04/17/17 05:05 04/17/17 05:05 INR, PTT INR 1.50 (0.82-1.09) H 04/09/17 05:25 Fibrinogen 295.0 mg/dL (238-498) 04/08/17 05:45 Assessment/Plan ASSESSMENT AND PLAN: Severe Anemia corrected GI Bleed Acute Kidney Injury Lactic Acidosis improved Platelet Dysfunction Atrial Fibrillation CAD COPD LUNG NODULE LV Systolic Dysfunction Pulmonary HTN Colon ca - monitor H/H - transfuse as needed - inhaled bronchodilators prn - protonix - O2 to keep Spo2 >90% - DVT prophylaxis - Lasix prn - Pradaxa DR JEFFERS
--- NOTE | 2017-04-17 17:24 | PN ---
Progress Note (short form) - Note Progress Note: Pt seen and examined feels better. NO bleeding reported Cor: RSR, No murmurs, No gallops Lungs: Clear to P&A Abd: Soft, Normal bowel sounds, No organomegaly Ext:No significant edema Last Vital Signs Temp Pulse Resp BP Pulse Ox 98.9 F 81 18 115/76 96 04/17/17 14:00 04/17/17 14:00 04/17/17 14:00 04/17/17 14:00 04/17/17 10:00 CBC, BMP 04/17/17 05:05 04/17/17 05:05 Current Medications Generic Name Dose Route Start Last Admin Trade Name Freq PRN Reason Stop Dose Admin Acetaminophen 650 mg 04/07/17 15:38 Tylenol - PO Q6H PRN FEVER OR PAIN Aspirin 81 mg 04/14/17 10:00 04/17/17 10:14 Ecotrin - PO 81 mg DAILY [facility]UEK Administration Atorvastatin Calcium 40 mg 04/09/17 22:00 04/16/17 21:16 Lipitor - PO 40 mg HS LUKE Administration Carvedilol 12.5 mg 04/09/17 10:00 04/17/17 10:14 Coreg - PO 12.5 mg BID LUKE Administration Docusate Sodium 100 mg 04/14/17 22:00 04/17/17 10:14 Colace - PO 100 mg BID LUKE Administration Dorzolamide HCl 1 drop 04/09/17 10:00 04/17/17 10:15 Trusopt 2% OU 1 drp DAILY LUKE Administration Enoxaparin Sodium 60 mg 04/17/17 10:00 04/17/17 10:14 Lovenox - SQ 60 mg BID LUKE Administration Isosorbide Mononitrate 30 mg 04/09/17 22:00 04/16/17 21:16 Imdur - PO 30 mg HS LUKE Administration Latanoprost 1 drop 04/09/17 22:00 04/16/17 21:17 Xalatan 0.005% Eye Drops - OU 1 drop HS LUKE Administration Levothyroxine Sodium 100 mcg 04/10/17 07:00 04/17/17 06:01 Synthroid - PO 100 mcg AM LUKE Administration Pantoprazole Sodium 40 mg 04/14/17 10:00 04/17/17 10:14 Protonix - PO 40 mg DAILY LUKE Administration Polyethylene Glycol 17 gm 04/14/17 10:30 04/17/17 10:15 Miralax (For Daily Use) - PO Not Given DAILY [facility]KE Senna 2 tab 04/15/17 18:18 04/15/17 21:24 Senna - PO 2 tab HS PRN Administration CONSTIPATION Polyp at Hepatic Flexure , pathology consistent with Infiltrating colon adenoca. Explained the diagnosis to the pt and sister. await GI/Surgical consult. Afib: Due to her being a potential surgical candidate, considered lovenox which was started. d/w Cardiology/GI teams. will follow
--- NOTE | 2017-04-17 17:33 | PN ---
Physical Exam: SUBJECTIVE: Patient seen and examined at bedside. Sad about receiving news of positive biopsy. Sister is her health care proxy. OBJECTIVE: Vital Signs Period Temp Pulse Resp BP Sys/[place] Pulse Ox Last 24 Hr 97.9 F-98.9 F 74-96 16-20 101-129/56-80 96-99 GENERAL: The patient is awake, alert, and fully oriented. Sad. Tearful. LUNGS: CTA HEART: Irregular, S1, S2 without murmur, rub or gallop. ABDOMEN: Soft, nontender, nondistended, normoactive bowel sounds, no guarding, no rebound EXTREMITIES: 2+ pulses, warm, well-perfused, no edema. NEUROLOGICAL: Cranial nerves II through XII grossly intact. Normal speech, gait not observed. Laboratory Results - last 24 hr 04/17/17 04/17/17 05:05 05:05 WBC 5.1 RBC 3.30 L Hgb 9.1 L Hct 28.4 L MCV 86.1 MCH 27.6 MCHC 32.1 RDW 18.4 H Plt Count 136 MPV 8.0 Neutrophils % 64.9 Lymphocytes % 14.4 Monocytes % 15.0 H Eosinophils % 4.4 Basophils % 1.3 Sodium 136 Potassium 4.1 Chloride 103 Carbon Dioxide 26 Anion Gap 7 L BUN 17 Creatinine 0.8 Random Glucose 88 Calcium 7.9 L Active Medications Generic Name Dose Route Start Last Admin Trade Name Freq PRN Reason Stop Dose Admin Acetaminophen 650 mg 04/07/17 15:38 Tylenol - PO Q6H PRN FEVER OR PAIN Aspirin 81 mg 04/14/17 10:00 04/17/17 10:14 Ecotrin - PO 81 mg DAILY LUKE HOLD Atorvastatin Calcium 40 mg 04/09/17 22:00 04/16/17 21:16 Lipitor - PO 40 mg HS LUKE Administration Carvedilol 12.5 mg 04/09/17 10:00 04/17/17 10:14 Coreg - PO 12.5 mg BID [facility] Administration Docusate Sodium 100 mg 04/14/17 22:00 04/17/17 10:14 Colace - PO 100 mg BID [facility] Administration Dorzolamide HCl 1 drop 04/09/17 10:00 04/17/17 10:15 Trusopt 2% OU 1 drp DAILY [facility] Administration Enoxaparin Sodium 60 mg 04/17/17 10:00 04/17/17 10:14 Lovenox - SQ 60 mg BID [facility] Administration Isosorbide Mononitrate 30 mg 04/09/17 22:00 04/16/17 21:16 Imdur - PO 30 mg HS [facility]KE Administration Latanoprost 1 drop 04/09/17 22:00 04/16/17 21:17 Xalatan 0.005% Eye Drops - OU 1 drop HS [facility]KE Administration Levothyroxine Sodium 100 mcg 04/10/17 07:00 04/17/17 06:01 Synthroid - PO 100 mcg AM [facility]KE Administration Pantoprazole Sodium 40 mg 04/14/17 10:00 04/17/17 10:14 Protonix - PO 40 mg DAILY [facility] Administration Polyethylene Glycol 17 gm 04/14/17 10:30 04/17/17 10:15 Miralax (For Daily Use) - PO Not Given DAILY [facility]KE Senna 2 tab 04/15/17 18:18 04/15/17 21:24 Senna - PO 2 tab HS PRN Administration CONSTIPATION ASSESSMENT/PLAN: 82 year-old female with a PMH significant for HTN, HLD, CAD s/p NSTEMI and stent x 1 (09/2016) s/p positive stress MIBI (01/2017), atrial fibrillation, systolic heart failure, COPD, and hypothyroidism. Severe blood loss anemia --Hgb 9.1, stable --last transfused 04/13 Infiltrating adenocarcinoma hepatic flexure --discussed pathology findings with Dr. Minor --seen and evaluated by heme/onc Dr. Nelson --surgeon Dr. Weston to see and evaluate the patient --hold ASA in anticipation of surgery --start full dose lovenox --CT chest, abdomen, pelvis ordered CAD s/p NSTEMI s/p stent --hold ASA, Plavix --continue carvedilol, Imdur Atrial fibrillation --rate well-controlled --hold Eliquis --on lovenox Systolic heart failure, chronic --lasix PRN Hypertension --continue carvedilol COPD --stable Hypothyroidism --continue levothyroxine FEN Fluids: PO intake adequate Electrolytes: replete as indicated Nutrition: low sodium DVT prophylaxis: full dose lovenox Dispo: requires continued inpatient care. Full code. Visit type - Emergency Visit Emergency Visit: Yes ED Registration Date: 04/07/17 Care time: The patient presented to the Emergency Department on the above date and was hospitalized for further evaluation of their emergent condition. - New Patient This patient is new to me today: No - Critical Care Critical Care patient: No
[2017-04-17] MEDS: ATORVASTATIN CA 40 MG TABLET (FP) PO SCH (21:11)
[2017-04-17] MEDS: ISOSORBIDE MONONITRATE 30 MG TAB.SR.24H (FP) PO SCH (21:11)
[2017-04-17] MEDS: LATANOPROST 0.005% OPHTH SOLN 2.5ML BOTTLE OU SCH (21:16)
[2017-04-18] MEDS ORDERED: PT OWN MED DRAWER 7, Y5N ONE ×3 (04:55→21:46)
[2017-04-18] MEDS: ACETAMINOPHEN 325 MG TABLET (FP) PO PRN (05:41)
[2017-04-18] MEDS: LEVOTHYROXINE NA 100 MCG TABLET (FP) PO SCH (06:00)
--- NOTE | 2017-04-18 12:16 | PN ---
Progress Note, Physician History of Present Illness: pulmonary alert,feeling better,less dyspneic with ambulation - Current Medication List Current Medications: Active Medications Acetaminophen (Tylenol -) 650 mg PO Q6H PRN PRN Reason: FEVER OR PAIN Last Admin: 04/18/17 05:41 Dose: 650 mg Aspirin (Ecotrin -) 81 mg PO DAILY [facility] Last Admin: 04/17/17 10:14 Dose: 81 mg Atorvastatin Calcium (Lipitor -) 40 mg PO HS [facility] Last Admin: 04/17/17 21:11 Dose: 40 mg Carvedilol (Coreg -) 12.5 mg PO BID [facility] Last Admin: 04/17/17 21:11 Dose: 12.5 mg Docusate Sodium (Colace -) 100 mg PO BID [facility] Last Admin: 04/17/17 21:11 Dose: 100 mg Dorzolamide HCl (Trusopt 2%) 1 drop OU DAILY [facility] Last Admin: 04/17/17 10:15 Dose: 1 drp Enoxaparin Sodium (Lovenox -) 60 mg SQ BID [facility] Last Admin: 04/17/17 21:11 Dose: 60 mg Isosorbide Mononitrate (Imdur -) 30 mg PO HS [facility] Last Admin: 04/17/17 21:11 Dose: 30 mg Latanoprost (Xalatan 0.005% Eye Drops -) 1 drop OU HS [facility] Last Admin: 04/17/17 21:16 Dose: 1 drop Levothyroxine Sodium (Synthroid -) 100 mcg PO AM [facility] Last Admin: 04/18/17 06:00 Dose: 100 mcg Pantoprazole Sodium (Protonix -) 40 mg PO DAILY [facility] Last Admin: 04/17/17 10:14 Dose: 40 mg Polyethylene Glycol (Miralax (For Daily Use) -) 17 gm PO DAILY [facility] Last Admin: 04/17/17 10:15 Dose: Not Given Senna (Senna -) 2 tab PO HS PRN PRN Reason: CONSTIPATION Last Admin: 04/15/17 21:24 Dose: 2 tab - Objective Vital Signs: Vital Signs Temperature 98.5 F 04/18/17 08:15 Pulse Rate 73 04/18/17 08:15 Respiratory Rate 16 04/18/17 08:15 Blood Pressure 118/64 04/18/17 08:15 O2 Sat by Pulse Oximetry (%) 97 04/17/17 20:04 Constitutional: Yes: Well Nourished, Calm Eyes: Yes: WNL HENT: Yes: WNL Neck: Yes: WNL Cardiovascular: Yes: Pulse Irregular, S1, S2 Respiratory: Yes: CTA Bilaterally Gastrointestinal: Yes: Normal Bowel Sounds, Soft Extremities: Yes: WNL Edema: Yes Labs: CBC, BMP - ....Imaging Cat Scan: Image Reviewed (bilateral pleural effusions) Assessment/Plan ASSESSMENT AND PLAN: Severe Anemia corrected GI Bleed Acute Kidney Injury Lactic Acidosis improved Platelet Dysfunction Atrial Fibrillation CAD COPD LUNG NODULE LV Systolic Dysfunction Pulmonary HTN Colon ca - monitor H/H - transfuse as needed - inhaled bronchodilators prn - protonix - O2 to keep Spo2 >90% - DVT prophylaxis - Lasix prn - Lovenox DR JEFFERS
--- NOTE | 2017-04-18 14:01 | PN ---
GI Progress Note Subjective: patient seen and examined last night, She was made aware of the presence of infilltrating malignancy in the polyp,. Spoke to Dr Chambers and discussed case with him. Patient not on any anticoagulation at this time because of progressive anemia - Objective Vital Signs: Vital Signs Temperature 98.5 F 04/18/17 08:15 Pulse Rate 73 04/18/17 08:15 Respiratory Rate 16 04/18/17 08:15 Blood Pressure 118/64 04/18/17 08:15 O2 Sat by Pulse Oximetry (%) 97 04/17/17 20:04 Constitutional: Well Nourished Eyes: Yes: Conjunctiva Clear HENT: Yes: Atraumatic Neck: Yes: Supple Cardiovascular: Yes: Pulse Irregular Respiratory: Yes: CTA Bilaterally ...Palpate: Yes: Soft. No: Firm/Rigid, Guarding, Hepatomegaly, Mass, Pulsatile Mass, Splenomegaly, Tenderness Labs: CBC, BMP 04/17/17 05:05 04/17/17 05:05 INR, PTT INR 1.50 (0.82-1.09) H 04/09/17 05:25 Fibrinogen 295.0 mg/dL (238-498) 04/08/17 05:45 Problem List - Problems (1) GI bleed Code(s): K92.2 - GASTROINTESTINAL HEMORRHAGE, UNSPECIFIED Qualifiers: GI bleed type/associated pathology: unspecified gastrointestinal hemorrhage type Qualified Code(s): K92.2 - Gastrointestinal hemorrhage, unspecified (2) Colon cancer Assessment/Plan: R> surgical evaluation for right hemicolectomy Code(s): C18.9 - MALIGNANT NEOPLASM OF COLON, UNSPECIFIED
[2017-04-18] MEDS: DORZOLAMIDE 2% HCL OPHTHALMIC SOLUTION 10 ML BOTTLE OU SCH (14:06)
[2017-04-18] MEDS: ENOXAPARIN NA (PORCINE) 60 MG/0.6 ML DISP.SYRIN SQ SCH ×2 (14:06→21:43)
--- NOTE | 2017-04-18 14:06 | PN ---
Progress Note, Physician Chief Complaint: Pt A&Ox3; sitting up at bedside; calm; no chest pain; dyspneic on mild exertion. She wants to discuss possible hemicolectomy. History of Present Illness: The patient is an 82 year old white female with a history of triple vessel CAD ( s/p mid-RCA DEstent 2015; no PCI needed on coronary angiogram 01/2017, but noted severe MR, mild-moderate LV dysfunction, and moderately severe pulmonary HTN; pt refused trans-apical mitral valve replacement), afib, COPD, HTN, HLD, who presents for evaluation of generalized weakness and shortness of breath. The patient reports a several day history of generalized weakness with associated shortness of breath at rest worse with exertion. She noted some dizziness and worsening symptoms earlier this morning prompting her presentation to the ED for evaluation. She notes that she has been constipated over the past few days, but noted some dark black stools yesterday evening. She states that she has had similar symptoms in the past. She denies any headache, cough, fevers, chest pain, abdominal pain, nausea, vomiting, or changes with urination. She notes that she has been very cold over the past few days. She denies any recent weight gain or leg swelling. - Current Medication List Current Medications: Active Medications Acetaminophen (Tylenol -) 650 mg PO Q6H PRN PRN Reason: FEVER OR PAIN Last Admin: 04/18/17 05:41 Dose: 650 mg Aspirin (Ecotrin -) 81 mg PO DAILY [facility] Last Admin: 04/17/17 10:14 Dose: 81 mg Atorvastatin Calcium (Lipitor -) 40 mg PO HS [facility] Last Admin: 04/17/17 21:11 Dose: 40 mg Carvedilol (Coreg -) 12.5 mg PO BID [facility] Last Admin: 04/17/17 21:11 Dose: 12.5 mg Docusate Sodium (Colace -) 100 mg PO BID [facility] Last Admin: 04/17/17 21:11 Dose: 100 mg Dorzolamide HCl (Trusopt 2%) 1 drop OU DAILY [facility] Last Admin: 04/17/17 10:15 Dose: 1 drp Enoxaparin Sodium (Lovenox -) 60 mg SQ BID [facility] Last Admin: 04/17/17 21:11 Dose: 60 mg Isosorbide Mononitrate (Imdur -) 30 mg PO [facility] Last Admin: 04/17/17 21:11 Dose: 30 mg Latanoprost (Xalatan 0.005% Eye Drops -) 1 drop OU HS [facility] Last Admin: 04/17/17 21:16 Dose: 1 drop Levothyroxine Sodium (Synthroid -) 100 mcg PO AM [facility] Last Admin: 04/18/17 06:00 Dose: 100 mcg Pantoprazole Sodium (Protonix -) 40 mg PO DAILY [facility] Last Admin: 04/17/17 10:14 Dose: 40 mg Polyethylene Glycol (Miralax (For Daily Use) -) 17 gm PO DAILY [facility] Last Admin: 04/17/17 10:15 Dose: Not Given Senna (Senna -) 2 tab PO HS PRN PRN Reason: CONSTIPATION Last Admin: 04/15/17 21:24 Dose: 2 tab - Objective Vital Signs: Vital Signs Temperature 98.5 F 04/18/17 08:15 Pulse Rate 73 04/18/17 08:15 Respiratory Rate 16 04/18/17 08:15 Blood Pressure 118/64 04/18/17 08:15 O2 Sat by Pulse Oximetry (%) 97 04/17/17 20:04 Constitutional: Yes: Anxious Eyes: Yes: WNL HENT: Yes: WNL Neck: Yes: WNL Cardiovascular: Yes: Pulse Irregular, S1 (varies in intensity) Respiratory: Yes: Diminished Gastrointestinal: Yes: Soft ...Rectal Exam: Yes: Deferred Genitourinary: No: Anuria Breast(s): Yes: WNL Musculoskeletal: Yes: Muscle Weakness Extremities: Yes: Cool Edema: No Peripheral Pulses WNL: No Peripheral Pulses: Left Doralis Pedis: 1+, Right Dorsalis Pedis: 1+ Integumentary: Yes: WNL Neurological: Yes: Alert, Oriented, Weakness Labs: CBC, BMP 04/17/17 05:05 04/17/17 05:05 INR, PTT INR 1.50 (0.82-1.09) H 04/09/17 05:25 Fibrinogen 295.0 mg/dL (238-498) 04/08/17 05:45 Problem List - Problems (1) Severe mitral regurgitation Assessment/Plan: 01/2017 coronary angiogram showed triple vessel CAD (no PCI required); hx mid- RCA-->drug-eleuting stent 2015. Pt refused trans-apical mitral valve replacement at the time. She has been on furosemide; will restart (bilateral pleural effusion on 2016 CT Chest). F/u CXR;Is and Os, daily weight, BUN/Cr, electrolytes. Code(s): I34.0 - NONRHEUMATIC MITRAL (VALVE) INSUFFICIENCY (2) Anemia Assessment/Plan: undergoing GI workup; adenocarcinoma of the colon diagnosed. Code(s): D64.9 - ANEMIA, UNSPECIFIED Qualifiers: Anemia type: unspecified type Qualified Code(s): D64.9 - Anemia, unspecified (3) GI bleed Assessment/Plan: Pt with GI bleed; noted to have adenocarcinoma. Pt may requires a hemicolectomy. Changed anticoagulant to Lovenox. Code(s): K92.2 - GASTROINTESTINAL HEMORRHAGE, UNSPECIFIED Qualifiers: GI bleed type/associated pathology: unspecified gastrointestinal hemorrhage type Qualified Code(s): K92.2 - Gastrointestinal hemorrhage, unspecified (4) Hypotension Assessment/Plan: Resolved after PRBCs; on carvedilol, Imdur Hold fluids pending CXR; may require diuretics. Code(s): I95.9 - HYPOTENSION, UNSPECIFIED Qualifiers: Hypotension type: unspecified hypotension type Qualified Code(s): I95.9 - Hypotension, unspecified (5) ASHD (arteriosclerotic heart disease) Code(s): I25.10 - ATHSCL HEART DISEASE OF [place] CORONARY ARTERY W/O ANG PCTRS (6) Acute on chronic systolic (congestive) heart failure Code(s): I50.23 - ACUTE ON CHRONIC SYSTOLIC (CONGESTIVE) HEART FAILURE (7) Anxiety Code(s): F41.9 - ANXIETY DISORDER, UNSPECIFIED (8) Atrial fibrillation Code(s): I48.91 - UNSPECIFIED ATRIAL FIBRILLATION Qualifiers: Atrial fibrillation type: unspecified Qualified Code(s): I48.91 - Unspecified atrial fibrillation (9) COPD (chronic obstructive pulmonary disease) Code(s): J44.9 - CHRONIC OBSTRUCTIVE PULMONARY DISEASE, UNSPECIFIED (10) Moderate to severe pulmonary hypertension Code(s): I27.2 - OTHER SECONDARY PULMONARY HYPERTENSION * DO NOT USE *
--- NOTE | 2017-04-18 14:06 | PN ---
Progress Note, Physician Chief Complaint: Pt A&Ox3; sitting up at bedside; calm; no chest pain. Remains dyspneic with mild exertion. History of Present Illness: The patient is an 82 year old white female with a history of triple vessel CAD ( s/p mid-RCA DEstent 2015; no PCI needed on coronary angiogram 01/2017, but noted severe MR, mild-moderate LV dysfunction, and moderately severe pulmonary HTN; pt refused trans-apical mitral valve replacement), afib, COPD, HTN, HLD, who presents for evaluation of generalized weakness and shortness of breath. The patient reports a several day history of generalized weakness with associated shortness of breath at rest worse with exertion. She noted some dizziness and worsening symptoms earlier this morning prompting her presentation to the ED for evaluation. She notes that she has been constipated over the past few days, but noted some dark black stools yesterday evening. She states that she has had similar symptoms in the past. She denies any headache, cough, fevers, chest pain, abdominal pain, nausea, vomiting, or changes with urination. She notes that she has been very cold over the past few days. She denies any recent weight gain or leg swelling. - Current Medication List Current Medications: Active Medications Acetaminophen (Tylenol -) 650 mg PO Q6H PRN PRN Reason: FEVER OR PAIN Last Admin: 04/18/17 05:41 Dose: 650 mg Aspirin (Ecotrin -) 81 mg PO DAILY [facility] Last Admin: 04/17/17 10:14 Dose: 81 mg Atorvastatin Calcium (Lipitor -) 40 mg PO [facility] Last Admin: 04/17/17 21:11 Dose: 40 mg Carvedilol (Coreg -) 12.5 mg PO BID [facility] Last Admin: 04/17/17 21:11 Dose: 12.5 mg Docusate Sodium (Colace -) 100 mg PO BID [facility] Last Admin: 04/17/17 21:11 Dose: 100 mg Dorzolamide HCl (Trusopt 2%) 1 drop OU DAILY [facility] Last Admin: 04/17/17 10:15 Dose: 1 drp Enoxaparin Sodium (Lovenox -) 60 mg SQ BID [facility] Last Admin: 04/17/17 21:11 Dose: 60 mg Isosorbide Mononitrate (Imdur -) 30 mg PO [facility] Last Admin: 04/17/17 21:11 Dose: 30 mg Latanoprost (Xalatan 0.005% Eye Drops -) 1 drop OU HS [facility] Last Admin: 04/17/17 21:16 Dose: 1 drop Levothyroxine Sodium (Synthroid -) 100 mcg PO AM [facility] Last Admin: 04/18/17 06:00 Dose: 100 mcg Pantoprazole Sodium (Protonix -) 40 mg PO DAILY [facility] Last Admin: 04/17/17 10:14 Dose: 40 mg Polyethylene Glycol (Miralax (For Daily Use) -) 17 gm PO DAILY [facility] Last Admin: 04/17/17 10:15 Dose: Not Given Senna (Senna -) 2 tab PO HS PRN PRN Reason: CONSTIPATION Last Admin: 04/15/17 21:24 Dose: 2 tab - Objective Vital Signs: Vital Signs Temperature 98.5 F 04/18/17 08:15 Pulse Rate 73 04/18/17 08:15 Respiratory Rate 16 04/18/17 08:15 Blood Pressure 118/64 04/18/17 08:15 O2 Sat by Pulse Oximetry (%) 97 04/17/17 20:04 Constitutional: Yes: Anxious Eyes: Yes: WNL HENT: Yes: WNL Neck: Yes: WNL Cardiovascular: Yes: Pulse Irregular Respiratory: Yes: Diminished (poor air entry bilaterally) Gastrointestinal: Yes: Soft ...Rectal Exam: Yes: Deferred Genitourinary: No: Anuria Breast(s): Yes: WNL Musculoskeletal: Yes: Muscle Weakness Extremities: Yes: Cool Edema: No Peripheral Pulses WNL: No Peripheral Pulses: Left Doralis Pedis: 1+, Right Dorsalis Pedis: 1+ Integumentary: Yes: WNL Neurological: Yes: Alert, Oriented, Weakness Psychiatric: Yes: WNL Labs: CBC, BMP 04/17/17 05:05 04/17/17 05:05 INR, PTT INR 1.50 (0.82-1.09) H 04/09/17 05:25 Fibrinogen 295.0 mg/dL (238-498) 04/08/17 05:45 Problem List - Problems (1) Severe mitral regurgitation Assessment/Plan: 01/2017 coronary angiogram showed triple vessel CAD (no PCI required); hx mid- RCA-->drug-eleuting stent 2015. Pt refused trans-apical mitral valve replacement at the time. She has been on furosemide; will restart IV (bilateral pleural effusion on 04/18 CT Chest). F/u CXR;Is and Os, daily weight, BUN/Cr, electrolytes. Code(s): I34.0 - NONRHEUMATIC MITRAL (VALVE) INSUFFICIENCY (2) Anemia Assessment/Plan: undergoing GI workup; adenocarcinoma of colon diagnosed. Code(s): D64.9 - ANEMIA, UNSPECIFIED Qualifiers: Anemia type: unspecified type Qualified Code(s): D64.9 - Anemia, unspecified (3) GI bleed Assessment/Plan: Pt with GI bleed; noted to have adenocarcinoma. Pt requires a laparoscopic partial colectomy. She is at high risk for a aravind- operative cardiac event (multi-vessel CAD; mild LV dysfunction/CHF; severe MR and pulmonary HTN; COPD; AF). Continue aspirin, ideally through operative period as well. On Lovenox; restart PO anticoagulation post-surgery. Restarted IV furosemide; f/u Is and Os, electrolytes, daily weight, BUN/Cr. Keep Mg 2.0 -2.3, K 4.0-4.5, and PO4 2.5-3.5. Code(s): K92.2 - GASTROINTESTINAL HEMORRHAGE, UNSPECIFIED Qualifiers: GI bleed type/associated pathology: unspecified gastrointestinal hemorrhage type Qualified Code(s): K92.2 - Gastrointestinal hemorrhage, unspecified (4) ASHD (arteriosclerotic heart disease) Code(s): I25.10 - ATHSCL HEART DISEASE OF [place] CORONARY ARTERY W/O ANG PCTRS (5) Acute on chronic systolic (congestive) heart failure Assessment/Plan: On carvedilol. Start IV furosemide.. CT chest 04/18/17: bilateral pleural effusion. Code(s): I50.23 - ACUTE ON CHRONIC SYSTOLIC (CONGESTIVE) HEART FAILURE (6) Anxiety Code(s): F41.9 - ANXIETY DISORDER, UNSPECIFIED (7) Atrial fibrillation Assessment/Plan: On ASA for CAD;on Lovenox pending hemicolectomy. Continue carvedilol for HR control and systolic CHF. Code(s): I48.91 - UNSPECIFIED ATRIAL FIBRILLATION Qualifiers: Atrial fibrillation type: unspecified Qualified Code(s): I48.91 - Unspecified atrial fibrillation (8) COPD (chronic obstructive pulmonary disease) Code(s): J44.9 - CHRONIC OBSTRUCTIVE PULMONARY DISEASE, UNSPECIFIED (9) Moderate to severe pulmonary hypertension Code(s): I27.2 - OTHER SECONDARY PULMONARY HYPERTENSION * DO NOT USE *
[2017-04-18] MEDS: CARVEDILOL 12.5 MG TABLET (FP) PO SCH ×2 (14:07→21:43)
[2017-04-18] MEDS: PANTOPRAZOLE 40 MG TABLET (FP) PO SCH (14:07)
[2017-04-18] MEDS: DOCUSATE SODIUM 100 MG CAPSULE (FP) PO SCH ×2 (14:07→21:42)
[2017-04-18] MEDS: POLYETHYLENE GLYCOL 3350 119 GM BTL PO SCH (14:08)
--- NOTE | 2017-04-18 17:10 | PN ---
Physical Exam: SUBJECTIVE: Patient seen and examined. OBJECTIVE: Vital Signs Period Temp Pulse Resp BP Sys/Tenorio Pulse Ox Last 24 Hr 97.6 F-98.8 F 72-114 16-18 110-143/62-80 94-97 GENERAL: The patient is awake, alert, and fully oriented. Sad. Tearful. LUNGS: CTA HEART: Irregular, S1, S2 without murmur, rub or gallop. ABDOMEN: Soft, nontender, nondistended, normoactive bowel sounds, no guarding, no rebound EXTREMITIES: 2+ pulses, warm, well-perfused, no edema. NEUROLOGICAL: Cranial nerves II through XII grossly intact. Normal speech, gait not observed. Active Medications Generic Name Dose Route Start Last Admin Trade Name Freq PRN Reason Stop Dose Admin Acetaminophen 650 mg 04/07/17 15:38 04/18/17 05:41 Tylenol - PO 650 mg Q6H PRN Administration FEVER OR PAIN Aspirin 81 mg 04/14/17 10:00 04/17/17 10:14 Ecotrin - PO 81 mg DAILY LUKE Administration Atorvastatin Calcium 40 mg 04/09/17 22:00 04/17/17 21:11 Lipitor - PO 40 mg HS LUKE Administration Carvedilol 12.5 mg 04/09/17 10:00 04/18/17 14:07 Coreg - PO 12.5 mg BID LUKE Administration Docusate Sodium 100 mg 04/14/17 22:00 04/18/17 14:07 Colace - PO 100 mg BID LUKE Administration Dorzolamide HCl 1 drop 04/09/17 10:00 04/18/17 14:06 Trusopt 2% OU 1 drp DAILY LUKE Administration Enoxaparin Sodium 60 mg 04/17/17 10:00 04/18/17 14:06 Lovenox - SQ 60 mg BID LUKE Administration Isosorbide Mononitrate 30 mg 04/09/17 22:00 04/17/17 21:11 Imdur - PO 30 mg HS LUKE Administration Latanoprost 1 drop 04/09/17 22:00 04/17/17 21:16 Xalatan 0.005% Eye Drops - OU 1 drop HS LUKE Administration Levothyroxine Sodium 100 mcg 04/10/17 07:00 04/18/17 06:00 Synthroid - PO 100 mcg AM LUKE Administration Pantoprazole Sodium 40 mg 04/14/17 10:00 04/18/17 14:07 Protonix - PO 40 mg DAILY LUKE Administration Polyethylene Glycol 17 gm 04/14/17 10:30 04/18/17 14:08 Miralax (For Daily Use) - PO Not Given DAILY LUKE Senna 2 tab 04/15/17 18:18 04/15/17 21:24 Senna - PO 2 tab HS PRN Administration CONSTIPATION ASSESSMENT/PLAN: 82 year-old female with a PMH significant for HTN, HLD, CAD s/p NSTEMI and stent x 1 (09/2016) s/p positive stress MIBI (01/2017), atrial fibrillation, systolic heart failure, COPD, and hypothyroidism. Severe blood loss anemia --Hgb 9.1, stable --last transfused 04/13 Infiltrating adenocarcinoma hepatic flexure --surgical planning ongoing with Dr. Weston --hold ASA in anticipation of surgery, last dose 04/17 --continue full dose lovenox --04/18 CT chest, abdomen, pelvis pending dictation CAD s/p NSTEMI s/p stent --hold ASA, Plavix --continue carvedilol, Imdur Atrial fibrillation --rate well-controlled, continue carvedilol --hold Eliquis --on lovenox Systolic heart failure, chronic --Lasix IV Hypertension --continue carvedilol COPD --stable Hypothyroidism --continue levothyroxine FEN Fluids: PO intake adequate Electrolytes: replete as indicated Nutrition: low sodium DVT prophylaxis: full dose lovenox Dispo: requires continued inpatient care. Full code. Visit type - Emergency Visit Emergency Visit: Yes ED Registration Date: 04/07/17 Care time: The patient presented to the Emergency Department on the above date and was hospitalized for further evaluation of their emergent condition. - New Patient This patient is new to me today: No - Critical Care Critical Care patient: No
[2017-04-18] MEDS: FUROSEMIDE 40 MG/4 ML INJECTABLE VIAL IVPUSH SCH (17:45)
--- NOTE | 2017-04-18 18:15 | CONSULT ---
Consult Consult Specialty:: surgery Reason for Consultation:: polyp - History of Present Illness History of Present Illness: 82 yr old female presens with severe anemia and history of afib on anticoagulation during this admission she has undergone a work up for occult bleeding and was found to have a polyp in the hepatic flexure with evidence of malignancy for which surgical evaluation - Past Medical History Cardio/Vascular: Yes: AFIB, CAD, HTN, Hyperlipdemia Psych: Yes: Anxiety - Past Surgical History Past Surgical History: Yes: Stent (coronary) - Alcohol/Substance Use Hx Alcohol Use: No - Smoking History Smoking history: Former smoker Have you smoked in the past 12 months: No Aproximately how many cigarettes per day: 40 If you are a former smoker, when did you quit?: 23 YEARS AGO Home Medications - Allergies Allergies/Adverse Reactions: Allergies Allergy/AdvReac Type Severity Reaction Status Date / Time cephalexin [Cephalexin] Allergy Intermediate Rash Verified 04/07/17 11:44 clindamycin Allergy Intermediate Rash Verified 04/07/17 11:44 naproxen [From Naprosyn] Allergy Intermediate ANKLES Verified 04/07/17 11:44 SWELLED UP Penicillins Allergy Intermediate Rash Verified 04/07/17 11:44 diphenhydramine HCl AdvReac CAN'T Verified 04/07/17 11:44 [From Benadryl] HAVE,HAS GLAUCOMA - Home Medications Home Medications: Ambulatory Orders Travoprost (Benzalkonium) [Travatan 0.004% Eye Drop] 1 gtt OD HS 05/29/11 Levothyroxine [Synthroid -] 100 mcg PO DAILY 03/19/15 Potassium Chloride [Klor-Con M20] 20 meq PO ASDIR 03/19/15 Dorzolamide HCl [Trusopt] 1 drop OU DAILY 10/15/15 Apixaban [Eliquis] 2.5 mg PO BID 10/11/16 Aspirin [ASA -] 81 mg PO DAILY 10/11/16 Atorvastatin Ca [Lipitor] 40 mg PO HS 10/11/16 Lisinopril 5 mg PO DAILY 10/11/16 Carvedilol [Coreg -] 12.5 mg PO BID #60 tablet 10/12/16 Furosemide [Lasix] 40 mg PO DAILY #30 tablet 10/12/16 Albuterol Sulfate Inhaler - [Ventolin Hfa Inhaler -] 1 - 2 inh PO PRN PRN Clopidogrel Bisulfate [Plavix -] 75 mg PO DAILY 04/07/17 Isosorbide Mononitrate [Isosorbide Mononitrate ER] 30 mg PO HS 04/07/17 Latanoprost 0.005% Eye Drops [Xalatan 0.005% Eye Drops -] 1 drop OU HS 04/07/17 Pantoprazole Sodium [Protonix] 40 mg PO DAILY 04/07/17 Physical Exam Vital Signs: Vital Signs Temperature 97.7 F 04/18/17 14:00 Pulse Rate 114 H 04/18/17 14:00 Respiratory Rate 16 04/18/17 08:15 Blood Pressure 110/70 04/18/17 14:00 O2 Sat by Pulse Oximetry (%) 94 L 04/18/17 09:00 Labs: CBC, BMP 04/17/17 05:05 04/17/17 05:05 Imaging - Results Cat Scan: Report Reviewed, Image Reviewed Problem List - Problems (1) Anemia Code(s): D64.9 - ANEMIA, UNSPECIFIED Qualifiers: Anemia type: unspecified type Qualified Code(s): D64.9 - Anemia, unspecified (2) Colon cancer Code(s): C18.9 - MALIGNANT NEOPLASM OF COLON, UNSPECIFIED (3) GI bleed Code(s): K92.2 - GASTROINTESTINAL HEMORRHAGE, UNSPECIFIED Qualifiers: GI bleed type/associated pathology: unspecified gastrointestinal hemorrhage type Qualified Code(s): K92.2 - Gastrointestinal hemorrhage, unspecified (4) Severe mitral regurgitation Code(s): I34.0 - NONRHEUMATIC MITRAL (VALVE) INSUFFICIENCY Assessment/Plan 82 yr old female with copmlex cardiac history with a adenocarcinoma of the hepatic flexure. She will need a laparoscopic partial colectomy once optimized from cardiac point of view
[2017-04-18] MEDS: ISOSORBIDE MONONITRATE 30 MG TAB.SR.24H (FP) PO SCH (21:43)
[2017-04-18] MEDS: ATORVASTATIN CA 40 MG TABLET (FP) PO SCH (21:43)
[2017-04-18] MEDS: LATANOPROST 0.005% OPHTH SOLN 2.5ML BOTTLE OU SCH (21:47)
[2017-04-19] MEDS: ACETAMINOPHEN 325 MG TABLET (FP) PO PRN (04:15)
[2017-04-19] MEDS: LEVOTHYROXINE NA 100 MCG TABLET (FP) PO SCH (06:15)
[2017-04-19 07:45] LABS: ANION GAP 6 (8-16); BLOOD UREA NITROGEN 18 mg/dL (7-18); CALCIUM 7.9 mg/dL (8.5-10.1); CHLORIDE 100 mmol/L (98-107); CO2 27 mmol/L (21-32); CREATININE 0.8 mg/dL (0.55-1.02); GLUCOSE,RANDOM 106 mg/dL (74-106); MAGNESIUM 2.1 mg/dL (1.8-2.4); POTASSIUM 4.2 mmol/L (3.5-5.1); SODIUM 133 mmol/L (136-145)
[2017-04-19] MEDS ORDERED: ACETAMINOPHEN 325 MG TABLET (FP) PO PRN (07:46)
[2017-04-19 09:48] LABS: BASO % 1.3 % (0-2.0); EOS % 4.2 % (0-4.5); HEMOGLOBIN 8.8 GM/dL (10.7-15.3); LYMPH % 13.2 % (8-40); MCH 27.1 pg (25.7-33.7); MCHC 31.5 g/dl (32.0-36.0); MEAN CELL VOLUME 85.9 fl (80-96); MEAN PLT VOLUME 8.5 fl (7.5-11.1); MONO % 16.7 % (3.8-10.2); NEUT % 64.6 % (42.8-82.8); PLATELET COUNT 132 K/MM3 (134-434); RBC 3.26 M/mm3 (3.60-5.2); RDW 18.9 % (11.6-15.6); WHITE BLOOD COUNT 4.2 K/mm3 (4.0-10.0)
[2017-04-19] MEDS ORDERED: PT OWN MED DRAWER 7, Y5N ONE ×2 (10:17→21:50)
[2017-04-19] MEDS: PANTOPRAZOLE 40 MG TABLET (FP) PO SCH (10:23)
[2017-04-19] MEDS: FUROSEMIDE 40 MG/4 ML INJECTABLE VIAL IVPUSH SCH (10:23)
[2017-04-19] MEDS: DOCUSATE SODIUM 100 MG CAPSULE (FP) PO SCH ×2 (10:23→21:45)
[2017-04-19] MEDS: CARVEDILOL 12.5 MG TABLET (FP) PO SCH ×2 (10:23→21:45)
[2017-04-19] MEDS: ENOXAPARIN NA (PORCINE) 60 MG/0.6 ML DISP.SYRIN SQ SCH ×2 (10:24→21:45)
[2017-04-19] MEDS: POLYETHYLENE GLYCOL 3350 119 GM BTL PO SCH (10:24)
[2017-04-19] MEDS: DORZOLAMIDE 2% HCL OPHTHALMIC SOLUTION 10 ML BOTTLE OU SCH (10:25)
--- NOTE | 2017-04-19 10:54 | PN ---
Progress Note (short form) - Note Progress Note: status quo plan for possiblelaparoscopic partial colectomy if and when cleared by cardiology. I would recommend restarting patient on ASA and Plavix and would do surgery on ASA and Plavix Discussed plan with patient and she expressed understanding Problem List - Problems (1) Anemia Code(s): D64.9 - ANEMIA, UNSPECIFIED Qualifiers: Anemia type: unspecified type Qualified Code(s): D64.9 - Anemia, unspecified (2) Colon cancer Code(s): C18.9 - MALIGNANT NEOPLASM OF COLON, UNSPECIFIED (3) GI bleed Code(s): K92.2 - GASTROINTESTINAL HEMORRHAGE, UNSPECIFIED Qualifiers: GI bleed type/associated pathology: unspecified gastrointestinal hemorrhage type Qualified Code(s): K92.2 - Gastrointestinal hemorrhage, unspecified (4) Severe mitral regurgitation Code(s): I34.0 - NONRHEUMATIC MITRAL (VALVE) INSUFFICIENCY
--- NOTE | 2017-04-19 11:24 | PN ---
Physical Exam: SUBJECTIVE: Patient seen and examined OBJECTIVE: Vital Signs Period Temp Pulse Resp BP Sys/Tenorio Pulse Ox Last 24 Hr 97.7 F-98.3 F 71-114 18-18 101-130/54-84 96 GENERAL: The patient is awake, alert, and fully oriented, in no acute distress. EYES: PERRL, extraocular movements intact, sclera anicteric, conjunctiva clear. NECK: No JVD present. LUNGS: Breath sounds equal, clear to auscultation bilaterally, no wheezes, no crackles, no accessory muscle use. HEART: Irregular rate and rhythm, S1, S2 without murmur, rub or gallop. ABDOMEN: SNTND EXTREMITIES: 2+ pulses, warm, well-perfused, 2+ edema. SKIN: Warm, dry, normal turgor, no rashes or lesions noted Laboratory Results - last 24 hr 04/19/17 04/19/17 05:05 05:05 WBC 4.2 RBC 3.26 L Hgb 8.8 L Hct 28.0 L MCV 85.9 MCH 27.1 MCHC 31.5 L RDW 18.9 H Plt Count 132 L MPV 8.5 Neutrophils % 64.6 Lymphocytes % 13.2 Monocytes % 16.7 H Eosinophils % 4.2 Basophils % 1.3 Sodium 133 L Potassium 4.2 Chloride 100 Carbon Dioxide 27 Anion Gap 6 L BUN 18 Creatinine 0.8 Random Glucose 106 D Calcium 7.9 L Magnesium 2.1 Active Medications Generic Name Dose Route Start Last Admin Trade Name Freq PRN Reason Stop Dose Admin Acetaminophen 650 mg 04/19/17 07:46 Tylenol - PO Q6H PRN FEVER OR PAIN Aspirin 81 mg 04/14/17 10:00 04/17/17 10:14 Ecotrin - PO 81 mg DAILY LUKE Administration Atorvastatin Calcium 40 mg 04/19/17 22:00 Lipitor - PO HS LUKE Carvedilol 12.5 mg 04/19/17 10:00 04/19/17 10:23 Coreg - PO 12.5 mg BID LUKE Administration Docusate Sodium 100 mg 04/14/17 22:00 04/19/17 10:23 Colace - PO 100 mg BID LUKE Administration Dorzolamide HCl 1 drop 04/19/17 10:00 04/19/17 10:25 Trusopt 2% OU 1 drop DAILY LUKE Administration Enoxaparin Sodium 60 mg 04/17/17 10:00 04/19/17 10:24 Lovenox - SQ 60 mg BID LUKE Administration Furosemide 20 mg 04/18/17 17:45 04/19/17 10:23 Lasix Injection - IVPUSH 20 mg DAILY LUKE Administration Isosorbide Mononitrate 30 mg 04/19/17 22:00 Imdur - PO HS LUKE Latanoprost 1 drop 04/19/17 22:00 Xalatan 0.005% Eye Drops - OU HS LUKE Levothyroxine Sodium 100 mcg 04/20/17 07:00 Synthroid - PO AM LUKE Pantoprazole Sodium 40 mg 04/14/17 10:00 04/19/17 10:23 Protonix - PO 40 mg DAILY LUKE Administration Polyethylene Glycol 17 gm 04/14/17 10:30 04/19/17 10:24 Miralax (For Daily Use) - PO Not Given DAILY LUKE Senna 2 tab 04/15/17 18:18 04/15/17 21:24 Senna - PO 2 tab HS PRN Administration CONSTIPATION CT/CHEST CT WITH CONTRAST EXAM: CT chest with IV contrast. CT abdomen and pelvis without and with IV contrast. INDICATION: Colon cancer. TECHNIQUE: Contiguous axial CT images of the abdomen and pelvis were obtained with oral contrast and no intravenous contrast. Following intravenous administration of 75 mL of Omnipaque 350 contrast , contiguous axial CT images of the chest, abdomen and pelvis were obtained. Coronal and sagittal reconstructions obtained. COMPARISON: None available. FINDINGS: CHEST - There are bilateral layering pleural effusions, small to moderate in size with subsegmental compressive atelectasis in both lung bases. There are moderately severe centrilobular emphysematous changes, with an upper lobe predominance. There is a pleural-based, subsegmental mixed linear and nodular opacity in the anteromedial left lung base, measuring approximately 2.7 x 1.6 cm. There is no pneumothorax. There is a 5 mm solid noncalcified nodule in the lateral segment of the right middle lobe (image 56 of series 8), unchanged in size from 2016. There is a 5 mm solid noncalcified nodule in the lateral left lung base ( image 75 of series 8), unchanged in size from 10/11/2016. There is adjacent 3 mm noncalcified nodule in the left lung base (image 73 of series 8), unchanged in size from 2016. There is multichamber cardiomegaly. There is trace pericardial fluid which may be physiologic, rather than pericardial effusion. There is severe coronary artery calcific atherosclerosis. There is calcification of the mitral valve annulus. 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 There is moderate calcified and noncalcified atheromatous plaque along the aortic arch and descending thoracic aorta including the origins of the great vessels off the aortic arch, most severe at the takeoff of the left subclavian artery. The descending thoracic aorta is tortuous an ectatic measuring up to 3.5 cm in diameter. The main pulmonary artery is dilated, measuring 34, which is suggestive of pulmonary artery hypertension. The axillary regions are unremarkable. No pathologically enlarged mediastinal lymph nodes by CT size criteria. There are nonspecific subcentimeter hilar lymph nodes and mediastinal lymph nodes. The thyroid gland is not visualized and may be surgically absent. Please correlate clinically. There is a hiatal hernia, at least moderate in size. There is wall thickening along the distal esophagus, some which may be secondary to underdistention. There is osseous demineralization. There is thoracic spondylosis. There is mild chronic loss of height of the T8 and T10 vertebral bodies without osseous retropulsion, unchanged from 10/10/2016. There are chronic, healed fracture deformities of several right ribs. There is glenohumeral arthropathy. Prominent soft tissue surrounding the right humeral head with scattered calcification is nonspecific, but unchanged from 10/11/2016 and may be attributed to some combination of chronic synovitis, loose bodies and rotator cuff calcific tendinopathy. ABDOMEN/PELVIS - The liver is normal in size and contour. Subcentimeter hypoattenuating lesions in segment 3 and 7 of the liver are too small to characterize, unchanged in size from 10/11/2016. There is heterogeneous enhancement of the hepatic parenchyma. There is cholelithiasis with gallbladder wall thickening. The common bile duct is diffusely dilated , measuring up to 10- 11 mm in diameter. There is periportal edema and central intrahepatic ductal dilatation, which is a least mild. The pancreas is unremarkable. The spleen is of normal size, with no focal lesions. There is thickening of the adrenal glands which is most likely on the basis of adrenal hyperplasia. Normal size kidneys with symmetric enhancement. There is no hydronephrosis. There are left renal cysts measuring up to 2.0 x 2.5 cm in the upper pole. There is a 3 mm nonobstructing calculus in the lower pole of the right kidney. The abdominal aorta is diffusely ectatic measuring up to 2.8 cm in diameter in the infrarenal segment. There is no abdominal aortic aneurysm. There is moderately severe calcific atherosclerosis along the abdominal aorta and all branch vessels. There are no pathologically enlarged retroperitoneal lymph nodes by CT size criteria. Provided clinical history of colonic carcinoma is not clearly delineated on the CT. There is copious stool throughout the colon. No dilated loops of large or small bowel to suggest obstruction. Normal-appearing appendix in the right lower quadrant. There is no gross free intraperitoneal air. There is small volume pericolonic fluid and fat stranding adjacent to the splenic flexure and proximal descending colon. There is trace free fluid layering in Morison's pouch. The urinary bladder is collapsed, precluding adequate evaluation. The uterus is unremarkable. There is a small left inguinal hernia containing fat and fluid. There is at least moderate dextroconvex scoliotic curvature of the lower thoracic spine and lumbar spine. There is osseous demineralization with degenerative changes throughout the visualized spine, hips and sacroiliac joints. There is diffuse body wall edema/anasarca. There are several gas locules within the subcutaneous fat overlying the left lower anterior abdominal wall. IMPRESSION: 1. Provided clinical history of colon carcinoma is not clearly delineated on this CT. Please correlate clinically. No bowel obstruction. No evidence of metastasis within the abdomen or pelvis. Subcentimeter lesions in the liver as above are too small to characterize, but unchanged in size from 10/11/2016, statistically likely to represent cysts. 2. Heterogeneous enhancement of the liver could be secondary to hepatocellular disease/hepatitis, right heart failure, amongst others. Please correlate clinically. 3. Cholelithiasis with no CT evidence of acute cholecystitis. Gallbladder wall thickening is nonspecific, possibly secondary to right heart failure, right upper quadrant inflammatory processes as well as chronic cholecystitis. Please correlate clinically. 4. Dilatation of the intrahepatic and extrahepatic biliary ducts and periportal edema. The etiology of biliary ductal dilatation is not clearly delineated on the CT. Please correlate clinically with LFTs and serum biliary markers. 5. A 3 mm nonobstructing right renal calculus. No hydroureteronephrosis. 6. Bilateral pulmonary nodules measuring up to 5 mm, as above, unchanged in size from 10/11/2016. No new pulmonary nodules to suggest metastasis. 7. Bilateral layering pleural effusions , small to moderate in size with subsegmental compressive atelectasis in both lung bases. Severe centrilobular emphysematous changes. 8. Diffuse anasarca and small volume of free fluid within the abdomen and pelvis, in the setting of pleural effusions and multichamber cardiomegaly. Please correlate clinically for CHF exacerbation. 9. Severe diffuse coronary artery calcific atherosclerosis. Multichamber cardiomegaly with trace pericardial fluid, which may be physiologic. 10. Dilated main pulmonary artery measuring 34 mm in diameter, suggestive of pulmonary artery hypertension, unchanged from 2016. 11. Please refer to the report above for additional findings. Reported By : Jazmine Peraza DO 04/18/17 1445 ASSESSMENT/PLAN: A: 82 year old female with a PMH significant for HTN, HLD, CAD s/p NSTEMI and stent x 1 (09/2016) s/p positive stress MIBI (01/2017), PAD, atrial fibrillation , systolic heart failure, severe pHTN, COPD, and hypothyroidism. Admitted for GI bleed. 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 P: Severe acute blood loss anemia - Due to GI bleed - Transfused 1u prbc 04/13 with appropriate rise - H/H stable - no events of GIB overnight - Restart ASA - Transfused 3U PRBC, 2uplts Systolic heart failure/Pulm HTN - Give x1 lasix 40 IV for sob - monitor GI bleed - EGD/colonoscopy 04/10 shows erosions, colon polyps, mucosal splis in right colon, possible diverticula bleed - Due to above findings, will hold AC until outpt follow up d/w cardio/GI, at that point consider coumadin - PO protonix Infiltrating adenocarcinoma hepatic flexure - likely OR 1/[address] Weston pending cards clearance - case d/w Dr. Weston- case to be done on ASA, will resume - continue full dose lovenox - 04/18 CT chest, abdomen, pelvis pending dictation Thrombocytopenia - Resolved, wnl - Start ASA, defer plavix initiation to cards AMANDA - Resolved CAD s/p NSTEMI s/p EDSON - Continue Lipitor - Isosorbide 30mg Hs - Resume ASA - continue to hold Plavix per cardiology Hypertension - Carvedilol 12.5mg BID Atrial fibrillation - Rate controlled on Coreg - Lovenox Hypothyroidism - Continue levothyroxine COPD - Stable Hypomagnesemia - Resolved Hypokalemia - Resolved Lactic acidosis - Likely due to GI bleed - Resolved Right lung nodule, 5mm - Pulm following F/E/N - cardiac diet - replete prn PPX - PT - SCDs - lovenox Visit type - Emergency Visit Emergency Visit: Yes ED Registration Date: 04/07/17 Care time: The patient presented to the Emergency Department on the above date and was hospitalized for further evaluation of their emergent condition. - New Patient This patient is new to me today: No - Critical Care Critical Care patient: No
--- NOTE | 2017-04-19 12:43 | PN ---
Progress Note, Physician History of Present Illness: seen and examined today in nad. no overnight events. no new complaints. - Current Medication List Current Medications: Active Medications Acetaminophen (Tylenol -) 650 mg PO Q6H PRN PRN Reason: FEVER OR PAIN Aspirin (Ecotrin -) 81 mg PO DAILY [facility] Last Admin: 04/17/17 10:14 Dose: 81 mg Atorvastatin Calcium (Lipitor -) 40 mg PO HS LUKE Carvedilol (Coreg -) 12.5 mg PO BID [facility] Last Admin: 04/19/17 10:23 Dose: 12.5 mg Docusate Sodium (Colace -) 100 mg PO BID [facility] Last Admin: 04/19/17 10:23 Dose: 100 mg Dorzolamide HCl (Trusopt 2%) 1 drop OU DAILY [facility] Last Admin: 04/19/17 10:25 Dose: 1 drop Enoxaparin Sodium (Lovenox -) 60 mg SQ BID [facility] Last Admin: 04/19/17 10:24 Dose: 60 mg Furosemide (Lasix Injection -) 20 mg IVPUSH DAILY [facility] Last Admin: 04/19/17 10:23 Dose: 20 mg Isosorbide Mononitrate (Imdur -) 30 mg PO HS [facility] Latanoprost (Xalatan 0.005% Eye Drops -) 1 drop OU HS [facility]KE Levothyroxine Sodium (Synthroid -) 100 mcg PO AM LUKE Pantoprazole Sodium (Protonix -) 40 mg PO DAILY [facility] Last Admin: 04/19/17 10:23 Dose: 40 mg Polyethylene Glycol (Miralax (For Daily Use) -) 17 gm PO DAILY [facility] Last Admin: 04/19/17 10:24 Dose: Not Given Senna (Senna -) 2 tab PO HS PRN PRN Reason: CONSTIPATION Last Admin: 04/15/17 21:24 Dose: 2 tab - Objective Vital Signs: Vital Signs Temperature 98.2 F 04/19/17 08:52 Pulse Rate 79 04/19/17 08:52 Respiratory Rate 18 04/19/17 08:52 Blood Pressure 108/75 04/19/17 08:52 O2 Sat by Pulse Oximetry (%) 96 04/18/17 21:00 Constitutional: Yes: No Distress, Calm Eyes: Yes: Conjunctiva Clear, EOM Intact HENT: Yes: Atraumatic, Normocephalic Neck: Yes: Supple, Trachea Midline Cardiovascular: Yes: Pulse Irregular, S1, S2. No: Regular Rate and Rhythm, Bradycardia, Tachycardia, Bruit, JVD, Gallop, Murmur, Rub, S3, S4, Varicosities Respiratory: Yes: Regular, Diminished. No: Rales, Rhonchi, Wheezes Gastrointestinal: Yes: Normal Bowel Sounds, Soft. No: Distention, Tenderness Extremities: Yes: WNL Edema: Yes Edema: LLE: Trace, RLE: 1+ Peripheral Pulses WNL: Yes Peripheral Pulses: Left Doralis Pedis: 2+, Right Dorsalis Pedis: 2+ Integumentary: Yes: WNL Neurological: Yes: Alert, Oriented Psychiatric: Yes: Alert, Oriented Labs: CBC, BMP 04/19/17 05:05 04/19/17 05:05 INR, PTT INR 1.50 (0.82-1.09) H 04/09/17 05:25 Fibrinogen 295.0 mg/dL (238-498) 04/08/17 05:45 - ....Imaging Chest X-ray: Report Reviewed, Image Reviewed EKG: Report Reviewed, Image Reviewed Other: Report Reviewed, Image Reviewed (tele-Afib, HR controlled, short pauses, pvcs) Assessment/Plan 82 year old woman with a history of triple vessel CAD (s/p mid-RCA DEstent 2015 ; no PCI needed on coronary angiogram 01/2017, but noted severe MR, mild- moderate LV dysfunction, and moderately severe pulmonary HTN; pt refused trans- apical mitral valve replacement), afib, COPD, HTN, HLD, admitted for evaluation of generalized weakness and shortness of breath. Acute on chronic systolic CHF and Severe mitral regurgitation, b/l pleural effusions -01/2017 coronary angiogram showed triple vessel CAD (no PCI required); hx mid- RCA-->drug-eleuting stent 2015. -Pt refused trans-apical mitral valve replacement at the time. -transition to po Lasix when euvolemic -cont coreg Anemia/GI bleed -found to have adenocarcinoma. -As per Dr. Jiménez's note yesterday pt is at high risk for a aravind-operative cardiac event (multi-vessel CAD; mild LV dysfunction/CHF; severe MR and pulmonary HTN; COPD; AF). -Continue aspirin, ideally through operative period as well. -On Lovenox; restart PO anticoagulation post-surgery. - f/u Is and Os, electrolytes, daily weight, BUN/Cr. Keep Mg 2.0 -2.3, K 4.0-4.5, and PO4 2.5-3.5. Atrial fibrillation-HR adequately controlled currently -on ASA for CAD;on Lovenox pending hemicolectomy to resume oral AC post op when safe to do so Continue carvedilol for HR control and systolic CHF CAD-with prior stents as above -cont ASA if possible -cont coreg, imdur, lipitor
--- NOTE | 2017-04-19 15:18 | PN ---
Progress Note (short form) - Note Progress Note: Pt seen and examined feels better. NO bleeding reported Cor: RSR, No murmurs, No gallops Lungs: Clear to P&A Abd: Soft, Normal bowel sounds, No organomegaly Ext:No significant edema L Last Vital Signs Temp Pulse Resp BP Pulse Ox 98.0 F 81 18 126/78 97 04/19/17 14:53 04/19/17 14:53 04/19/17 14:53 04/19/17 14:53 04/19/17 08:52 CBC, BMP 04/19/17 05:05 04/19/17 05:05 Current Medications Generic Name Dose Route Start Last Admin Trade Name Freq PRN Reason Stop Dose Admin Acetaminophen 650 mg 04/19/17 07:46 Tylenol - PO Q6H PRN FEVER OR PAIN Aspirin 81 mg 04/14/17 10:00 04/17/17 10:14 Ecotrin - PO 81 mg DAILY [facility] Administration Atorvastatin Calcium 40 mg 04/19/17 22:00 Lipitor - PO HS [facility] Carvedilol 12.5 mg 04/19/17 10:00 04/19/17 10:23 Coreg - PO 12.5 mg BID [facility] Administration Docusate Sodium 100 mg 04/14/17 22:00 04/19/17 10:23 Colace - PO 100 mg BID [facility] Administration Dorzolamide HCl 1 drop 04/19/17 10:00 04/19/17 10:25 Trusopt 2% OU 1 drop DAILY [facility] Administration Enoxaparin Sodium 60 mg 04/17/17 10:00 04/19/17 10:24 Lovenox - SQ 60 mg BID [facility] Administration Furosemide 20 mg 04/18/17 17:45 04/19/17 10:23 Lasix Injection - IVPUSH 20 mg DAILY [facility] Administration Isosorbide Mononitrate 30 mg 04/19/17 22:00 Imdur - PO HS [facility] Latanoprost 1 drop 04/19/17 22:00 Xalatan 0.005% Eye Drops - OU HS [facility] Levothyroxine Sodium 100 mcg 04/20/17 07:00 Synthroid - PO AM [facility] Pantoprazole Sodium 40 mg 04/14/17 10:00 04/19/17 10:23 Protonix - PO 40 mg DAILY [facility] Administration Polyethylene Glycol 17 gm 04/14/17 10:30 04/19/17 10:24 Miralax (For Daily Use) - PO Not Given DAILY [facility] Senna 2 tab 04/15/17 18:18 04/15/17 21:24 Senna - PO 2 tab HS PRN Administration CONSTIPATION Polyp at Hepatic Flexure , pathology consistent with Infiltrating colon adenoca. Noted GI/Surgical consult for surgery likely next week will f/u on final path Afib: Due to her being a potential surgical candidate, considered lovenox which was started. will follow
[2017-04-19] MEDS: ATORVASTATIN CA 40 MG TABLET (FP) PO SCH (21:45)
[2017-04-19] MEDS: ISOSORBIDE MONONITRATE 30 MG TAB.SR.24H (FP) PO SCH (21:45)
[2017-04-19] MEDS: LATANOPROST 0.005% OPHTH SOLN 2.5ML BOTTLE OU SCH (21:57)
[2017-04-20] MEDS: LEVOTHYROXINE NA 100 MCG TABLET (FP) PO SCH (06:06)
[2017-04-20 06:46] LABS: BASO % 1.9 % (0-2.0); EOS % 3.6 % (0-4.5); HEMATOCRIT 27.6 % (32.4-45.2); LYMPH % 18.8 % (8-40); MCH 27.9 pg (25.7-33.7); MCHC 32.5 g/dl (32.0-36.0); MEAN CELL VOLUME 85.6 fl (80-96); MEAN PLT VOLUME 8.1 fl (7.5-11.1); MONO % 17.6 % (3.8-10.2); NEUT % 58.1 % (42.8-82.8); PLATELET COUNT 158 K/MM3 (134-434); RBC 3.22 M/mm3 (3.60-5.2); RDW 18.6 % (11.6-15.6); WHITE BLOOD COUNT 4.1 K/mm3 (4.0-10.0)
[2017-04-20 07:02] LABS: CHLORIDE 101 mmol/L (98-107); SODIUM 136 mmol/L (136-145)
[2017-04-20 07:09] LABS: ANION GAP 6 (8-16); BLOOD UREA NITROGEN 18 mg/dL (7-18); CALCIUM 7.9 mg/dL (8.5-10.1); CO2 29 mmol/L (21-32); GLUCOSE,RANDOM 89 mg/dL (74-106)
[2017-04-20] MEDS: FUROSEMIDE 40 MG/4 ML INJECTABLE VIAL IVPUSH SCH (09:03)
[2017-04-20] MEDS: ENOXAPARIN NA (PORCINE) 60 MG/0.6 ML DISP.SYRIN SQ SCH ×2 (09:03→22:22)
[2017-04-20] MEDS: PANTOPRAZOLE 40 MG TABLET (FP) PO SCH (09:03)
[2017-04-20] MEDS: DOCUSATE SODIUM 100 MG CAPSULE (FP) PO SCH ×2 (09:04→22:22)
[2017-04-20] MEDS: CARVEDILOL 12.5 MG TABLET (FP) PO SCH ×2 (09:04→22:22)
[2017-04-20] MEDS: POLYETHYLENE GLYCOL 3350 119 GM BTL PO SCH (09:09)
[2017-04-20] MEDS: DORZOLAMIDE 2% HCL OPHTHALMIC SOLUTION 10 ML BOTTLE OU SCH (09:09)
--- NOTE | 2017-04-20 11:37 | PN ---
Progress Note, Physician History of Present Illness: seen and examined today in nad. no overnight events. no new complaints. - Current Medication List Current Medications: Active Medications Acetaminophen (Tylenol -) 650 mg PO Q6H PRN PRN Reason: FEVER OR PAIN Aspirin (Ecotrin -) 81 mg PO DAILY [facility] Last Admin: 04/17/17 10:14 Dose: 81 mg Atorvastatin Calcium (Lipitor -) 40 mg PO HS [facility] Last Admin: 04/19/17 21:45 Dose: 40 mg Carvedilol (Coreg -) 12.5 mg PO BID [facility] Last Admin: 04/20/17 09:04 Dose: 12.5 mg Docusate Sodium (Colace -) 100 mg PO BID [facility] Last Admin: 04/20/17 09:04 Dose: 100 mg Dorzolamide HCl (Trusopt 2%) 1 drop OU DAILY [facility] Last Admin: 04/20/17 09:09 Dose: 1 drop Enoxaparin Sodium (Lovenox -) 60 mg SQ BID [facility] Last Admin: 04/20/17 09:03 Dose: 60 mg Furosemide (Lasix Injection -) 20 mg IVPUSH DAILY [facility] Last Admin: 04/20/17 09:03 Dose: 20 mg Isosorbide Mononitrate (Imdur -) 30 mg PO HS [facility] Last Admin: 04/19/17 21:45 Dose: 30 mg Latanoprost (Xalatan 0.005% Eye Drops -) 1 drop OU HS [facility] Last Admin: 04/19/17 21:57 Dose: 1 drop Levothyroxine Sodium (Synthroid -) 100 mcg PO AM [facility] Last Admin: 04/20/17 06:06 Dose: 100 mcg Pantoprazole Sodium (Protonix -) 40 mg PO DAILY [facility] Last Admin: 04/20/17 09:03 Dose: 40 mg Polyethylene Glycol (Miralax (For Daily Use) -) 17 gm PO DAILY [facility] Last Admin: 04/20/17 09:09 Dose: Not Given Senna (Senna -) 2 tab PO HS PRN PRN Reason: CONSTIPATION Last Admin: 04/15/17 21:24 Dose: 2 tab - Objective Vital Signs: Vital Signs Temperature 97.9 F 04/20/17 07:46 Pulse Rate 72 04/20/17 07:46 Respiratory Rate 18 04/20/17 07:46 Blood Pressure 128/72 04/20/17 07:46 O2 Sat by Pulse Oximetry (%) 95 04/19/17 21:00 Constitutional: Yes: Well Nourished, No Distress, Calm Eyes: Yes: WNL, Conjunctiva Clear, EOM Intact, PERRL HENT: Yes: WNL, Atraumatic, Normocephalic Neck: Yes: WNL, Supple, Trachea Midline Cardiovascular: Yes: Pulse Irregular, S1, S2. No: Regular Rate and Rhythm, Bradycardia, Tachycardia, Bruit, JVD, Gallop, Murmur, Rub, S3, S4, Varicosities Respiratory: Yes: WNL, Regular, CTA Bilaterally. No: Rales, Rhonchi, Wheezes Gastrointestinal: Yes: WNL, Normal Bowel Sounds, Soft. No: Distention, Tenderness Musculoskeletal: Yes: WNL Extremities: Yes: WNL Edema: No Peripheral Pulses WNL: Yes Peripheral Pulses: Left Doralis Pedis: 2+, Right Dorsalis Pedis: 2+ Integumentary: Yes: WNL Neurological: Yes: WNL, Alert, Oriented, Cran Nerves II-XII Intact ...Motor Strength: WNL Psychiatric: Yes: WNL, Alert, Oriented Labs: CBC, BMP 04/20/17 05:05 04/20/17 05:05 INR, PTT INR 1.50 (0.82-1.09) H 04/09/17 05:25 Fibrinogen 295.0 mg/dL (238-498) 04/08/17 05:45 - ....Imaging Chest X-ray: Report Reviewed, Image Reviewed EKG: Report Reviewed, Image Reviewed Other: Report Reviewed, Image Reviewed (tele-Afib, HR adequately controlled, PVCs) Assessment/Plan 82 year old woman with a history of triple vessel CAD (s/p mid-RCA DEstent 2015 ; no PCI needed on coronary angiogram 01/2017, but noted severe MR, mild- moderate LV dysfunction, and moderately severe pulmonary HTN; pt refused trans- apical mitral valve replacement), afib, COPD, HTN, HLD, admitted for evaluation of generalized weakness and shortness of breath. Acute on chronic systolic CHF and Severe mitral regurgitation, b/l pleural effusions -01/2017 coronary angiogram showed triple vessel CAD (no PCI required); hx mid- RCA-->drug-eleuting stent 2015. -Pt refused trans-apical mitral valve replacement at the time. -can likely transition to po Lasix -cont coreg -monitor I/Os, bun/creat, electrolytes and replete as needed Anemia/GI bleed -found to have adenocarcinoma. -As per Dr. Jiménez's note yesterday pt is at high risk for a aravind-operative cardiac event (multi-vessel CAD; mild LV dysfunction/CHF; severe MR and pulmonary HTN; COPD; AF). -Continue aspirin, ideally through operative period as well. -On Lovenox; restart PO anticoagulation post-surgery. - f/u Is and Os, electrolytes, daily weight, BUN/Cr. Keep Mg 2.0 -2.3, K 4.0-4.5, and PO4 2.5-3.5. Atrial fibrillation-HR adequately controlled currently -on ASA for CAD;on Lovenox pending hemicolectomy to resume oral AC post op when safe to do so Continue carvedilol for HR control and systolic CHF CAD-with prior stents as above -cont ASA if possible from a surgical standpoint -cont coreg, imdur, lipitor
--- NOTE | 2017-04-20 11:48 | PN ---
Progress Note (short form) - Note Progress Note: Subjective: The patient was seen and examined at the bedside, she has no complaints at this time. Current Medications Generic Name Dose Route Start Last Admin Trade Name Freq PRN Reason Stop Dose Admin Acetaminophen 650 mg 04/19/17 07:46 Tylenol - PO Q6H PRN FEVER OR PAIN Aspirin 81 mg 04/14/17 10:00 04/17/17 10:14 Ecotrin - PO 81 mg DAILY [facility] Administration Atorvastatin Calcium 40 mg 04/19/17 22:00 04/19/17 21:45 Lipitor - PO 40 mg HS [facility] Administration Carvedilol 12.5 mg 04/19/17 10:00 04/20/17 09:04 Coreg - PO 12.5 mg BID [facility] Administration Docusate Sodium 100 mg 04/14/17 22:00 04/20/17 09:04 Colace - PO 100 mg BID [facility] Administration Dorzolamide HCl 1 drop 04/19/17 10:00 04/20/17 09:09 Trusopt 2% OU 1 drop DAILY [facility] Administration Enoxaparin Sodium 60 mg 04/17/17 10:00 04/20/17 09:03 Lovenox - SQ 60 mg BID [facility] Administration Furosemide 20 mg 04/18/17 17:45 04/20/17 09:03 Lasix Injection - IVPUSH 20 mg DAILY [facility] Administration Isosorbide Mononitrate 30 mg 04/19/17 22:00 04/19/17 21:45 Imdur - PO 30 mg HS [facility] Administration Latanoprost 1 drop 04/19/17 22:00 04/19/17 21:57 Xalatan 0.005% Eye Drops - OU 1 drop HS [facility] Administration Levothyroxine Sodium 100 mcg 04/20/17 07:00 04/20/17 06:06 Synthroid - PO 100 mcg AM [facility] Administration Pantoprazole Sodium 40 mg 04/14/17 10:00 04/20/17 09:03 Protonix - PO 40 mg DAILY [facility] Administration Polyethylene Glycol 17 gm 04/14/17 10:30 04/20/17 09:09 Miralax (For Daily Use) - PO Not Given DAILY [facility] Senna 2 tab 04/15/17 18:18 04/15/17 21:24 Senna - PO 2 tab HS PRN Administration CONSTIPATION Objective: Vital Signs Period Temp Pulse Resp BP Sys/Tenorio Pulse Ox Last 24 Hr 97.6 F-98.0 F 72-89 18-18 126-138/72-78 95 Physical Exam: General: NAD, A&Ox3 Lungs: CTA bilaterally Heart: Irregular, S1S2 Abd: Soft, non-tender, non-distended. Normoactive bowel sounds Ext: Warm, 1+ b/l lower extremity pitting edema CBCD WBC 4.1 K/mm3 (4.0-10.0) 04/20/17 05:05 RBC 3.22 M/mm3 (3.60-5.2) L 04/20/17 05:05 Hgb 9.0 GM/dL (10.7-15.3) L 04/20/17 05:05 Hct 27.6 % (32.4-45.2) L 04/20/17 05:05 MCV 85.6 fl (80-96) 04/20/17 05:05 MCHC 32.5 g/dl (32.0-36.0) 04/20/17 05:05 RDW 18.6 % (11.6-15.6) H 04/20/17 05:05 Plt Count 158 K/MM3 (134-434) 04/20/17 05:05 MPV 8.1 fl (7.5-11.1) 04/20/17 05:05 CMP Sodium 136 mmol/L (136-145) 04/20/17 05:05 Potassium 4.0 mmol/L (3.5-5.1) 04/20/17 05:05 Chloride 101 mmol/L (98-107) 04/20/17 05:05 Carbon Dioxide 29 mmol/L (21-32) 04/20/17 05:05 Anion Gap 6 (8-16) L 04/20/17 05:05 BUN 18 mg/dL (7-18) 04/20/17 05:05 Creatinine 1.0 mg/dL (0.55-1.02) D 04/20/17 05:05 Creat Clearance w eGFR 35.82 (>60) 04/09/17 05:25 Random Glucose 89 mg/dL (74-106) 04/20/17 05:05 Calcium 7.9 mg/dL (8.5-10.1) L 04/20/17 05:05 Total Bilirubin 1.7 mg/dL (0.2-1.0) H 04/09/17 05:25 AST 13 U/L (15-37) L 04/09/17 05:25 ALT 19 U/L (12-78) 04/09/17 05:25 Alkaline Phosphatase 49 U/L (45-117) 04/09/17 05:25 Total Protein 5.5 g/dl (6.4-8.2) L 04/09/17 05:25 Albumin 2.9 g/dl (3.4-5.0) L 04/09/17 05:25 CARDIAC ENZYMES Creatine Kinase 59 IU/L (26-192) 04/07/17 12:15 Troponin I 0.02 ng/ml (0.00-0.05) 04/08/17 05:45 Microbiology 04/15/17 21:30 Urine - Urine Clean Catch Urine Culture - Final NO GROWTH OBTAINED 04/07/17 12:15 Blood - Peripheral Venous Blood Culture - Final NO GROWTH AFTER 5 DAYS INCUBATION 04/07/17 12:15 Blood - Peripheral Venous Blood Culture - Final Staphylococcus Epidermidis 04/07/17 12:27 Urine - Urine Clean Catch Urine Culture - Final Contaminated: Please Repeat Assessment: This is an 82 year old female with PMHx of HTN, hyperlipidemia, CAD s/p NSTEMI with stent x1 (09/2016), s/p positive stress MIBI (01/2017), a.fib, systolic heart failure, COPD, hypothyroidism, who presented to the ED with weakness and shortness of breath Plan: 1) Hematology: Severe symptomatic blood loss anemia - Hgb 4.5 on admission - S/p PRBC 04/07, 04/08, 04/13 - Hgb now 9 - Continue to monitor Thrombocytopenia - Resolved 2) Cardiology: Acute on chronic systolic heart failure - Severe mitral regurg - Continue Lasix 20mg IVP daily A.fib - HR controlled - Continue Lovenox - Continue Coreg for rate control CAD s/p cardiac stenting - Continue ASA - Continue Lipitor - Appreciate cardiology consult 3) GI: 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 - For partial colectomy once cleared by cardiology - Appreciate surgical consult 4) : AMANDA - Resolved 5) Endocrine: Hypothyroidism - Continue Synthroid 6) Pulmonary: Lung nodules - On CT 04/18/17: lung nodules unchanged from 10/11/2016 - Will need outpatient follow-up to continue to monitor - Further recommendations per pulmonary 7) F/E/N: - Sodium controlled diet - Monitor electrolytes 8) Prophylaxis: - On Lovenox - OOB ambulating 9) Dispo: - Requires continued inpatient care - Patient did express that she does not want to be intubated and she does not want chest compressions if her heart stops after surgery. The patient does not want to wish to sign a DNR/DNI now. She states her sister is her health care proxy and she knows her wishes if anything were to happen. Will get proxy form signed CODE STATUS: FULL CODE Visit type - Emergency Visit Emergency Visit: Yes ED Registration Date: 04/07/17 Care time: The patient presented to the Emergency Department on the above date and was hospitalized for further evaluation of their emergent condition. - New Patient This patient is new to me today: Yes Date on this admission: 04/20/17 - Critical Care Critical Care patient: No
[2017-04-20] MEDS ORDERED: PT OWN MED DRAWER 7, Y5N ONE (22:21)
[2017-04-20] MEDS: ATORVASTATIN CA 40 MG TABLET (FP) PO SCH (22:22)
[2017-04-20] MEDS: LATANOPROST 0.005% OPHTH SOLN 2.5ML BOTTLE OU SCH (22:22)
[2017-04-20] MEDS: ISOSORBIDE MONONITRATE 30 MG TAB.SR.24H (FP) PO SCH (22:22)
[2017-04-21] MEDS: LEVOTHYROXINE NA 100 MCG TABLET (FP) PO SCH (05:37)
[2017-04-21 07:39] LABS: HEMATOCRIT 28.1 % (32.4-45.2); HEMOGLOBIN 8.9 GM/dL (10.7-15.3); MCH 27.2 pg (25.7-33.7); MCHC 31.5 g/dl (32.0-36.0); MEAN CELL VOLUME 86.3 fl (80-96); MEAN PLT VOLUME 7.7 fl (7.5-11.1); PLATELET COUNT 141 K/MM3 (134-434); RBC 3.25 M/mm3 (3.60-5.2); RDW 18.8 % (11.6-15.6); WHITE BLOOD COUNT 4.5 K/mm3 (4.0-10.0)
--- NOTE | 2017-04-21 09:05 | PN ---
Progress Note (short form) - Note Progress Note: Subjective: The patient was seen and examined at the bedside, she has no complaints at this time. Current Medications Generic Name Dose Route Start Last Admin Trade Name Freq PRN Reason Stop Dose Admin Acetaminophen 650 mg 04/19/17 07:46 04/21/17 05:36 Tylenol - PO 650 mg Q6H PRN Administration FEVER OR PAIN Aspirin 81 mg 04/14/17 10:00 04/17/17 10:14 Ecotrin - PO 81 mg DAILY [facility] Administration Atorvastatin Calcium 40 mg 04/19/17 22:00 04/20/17 22:22 Lipitor - PO 40 mg HS [facility] Administration Carvedilol 12.5 mg 04/19/17 10:00 04/21/17 09:06 Coreg - PO 12.5 mg BID [facility] Administration Docusate Sodium 100 mg 04/14/17 22:00 04/21/17 09:06 Colace - PO 100 mg BID [facility] Administration Dorzolamide HCl 1 drop 04/19/17 10:00 04/21/17 09:08 Trusopt 2% OU 1 drop DAILY [facility] Administration Enoxaparin Sodium 60 mg 04/17/17 10:00 04/21/17 09:25 Lovenox - SQ 60 mg BID [facility] Administration Furosemide 20 mg 04/18/17 17:45 04/21/17 09:06 Lasix Injection - IVPUSH 20 mg DAILY [facility] Administration Isosorbide Mononitrate 30 mg 04/19/17 22:00 04/20/17 22:22 Imdur - PO 30 mg HS [facility] Administration Latanoprost 1 drop 04/19/17 22:00 04/20/17 22:22 Xalatan 0.005% Eye Drops - OU 1 drop HS [facility] Administration Levothyroxine Sodium 100 mcg 04/20/17 07:00 04/21/17 05:37 Synthroid - PO 100 mcg AM [facility] Administration Pantoprazole Sodium 40 mg 04/14/17 10:00 04/21/17 09:06 Protonix - PO 40 mg DAILY [facility] Administration Polyethylene Glycol 17 gm 04/14/17 10:30 04/21/17 09:07 Miralax (For Daily Use) - PO Not Given DAILY [facility] Senna 2 tab 04/15/17 18:18 04/15/17 21:24 Senna - PO 2 tab HS PRN Administration CONSTIPATION Objective: Vital Signs Period Temp Pulse Resp BP Sys/Tenorio Pulse Ox Last 24 Hr 98.1 F-98.5 F 71-106 18-20 109-128/68-80 94 Physical Exam: General: NAD, A&Ox3 Lungs: CTA bilaterally Heart: Irregular, S1S2 Abd: Soft, non-tender, non-distended. Normoactive bowel sounds Ext: Warm, 1+ b/l lower extremity pitting edema CBCD WBC 4.5 K/mm3 (4.0-10.0) 04/21/17 06:25 RBC 3.25 M/mm3 (3.60-5.2) L 04/21/17 06:25 Hgb 8.9 GM/dL (10.7-15.3) L 04/21/17 06:25 Hct 28.1 % (32.4-45.2) L 04/21/17 06:25 MCV 86.3 fl (80-96) 04/21/17 06:25 MCHC 31.5 g/dl (32.0-36.0) L 04/21/17 06:25 RDW 18.8 % (11.6-15.6) H 04/21/17 06:25 Plt Count 141 K/MM3 (134-434) 04/21/17 06:25 MPV 7.7 fl (7.5-11.1) 04/21/17 06:25 CMP Sodium 136 mmol/L (136-145) 04/20/17 05:05 Potassium 4.0 mmol/L (3.5-5.1) 04/20/17 05:05 Chloride 101 mmol/L (98-107) 04/20/17 05:05 Carbon Dioxide 29 mmol/L (21-32) 04/20/17 05:05 Anion Gap 6 (8-16) L 04/20/17 05:05 BUN 18 mg/dL (7-18) 04/20/17 05:05 Creatinine 1.0 mg/dL (0.55-1.02) D 04/20/17 05:05 Creat Clearance w eGFR 35.82 (>60) 04/09/17 05:25 Random Glucose 89 mg/dL (74-106) 04/20/17 05:05 Calcium 7.9 mg/dL (8.5-10.1) L 04/20/17 05:05 Total Bilirubin 1.7 mg/dL (0.2-1.0) H 04/09/17 05:25 AST 13 U/L (15-37) L 04/09/17 05:25 ALT 19 U/L (12-78) 04/09/17 05:25 Alkaline Phosphatase 49 U/L (45-117) 04/09/17 05:25 Total Protein 5.5 g/dl (6.4-8.2) L 04/09/17 05:25 Albumin 2.9 g/dl (3.4-5.0) L 04/09/17 05:25 CARDIAC ENZYMES Creatine Kinase 59 IU/L (26-192) 04/07/17 12:15 Troponin I 0.02 ng/ml (0.00-0.05) 04/08/17 05:45 Microbiology 04/15/17 21:30 Urine - Urine Clean Catch Urine Culture - Final NO GROWTH OBTAINED 04/07/17 12:15 Blood - Peripheral Venous Blood Culture - Final NO GROWTH AFTER 5 DAYS INCUBATION 04/07/17 12:15 Blood - Peripheral Venous Blood Culture - Final Staphylococcus Epidermidis 04/07/17 12:27 Urine - Urine Clean Catch Urine Culture - Final Contaminated: Please Repeat Assessment: This is an 82 year old female with PMHx of HTN, hyperlipidemia, CAD s/p NSTEMI with stent x1 (09/2016), s/p positive stress MIBI (01/2017), a.fib, systolic heart failure, COPD, hypothyroidism, who presented to the ED with weakness and shortness of breath Plan: 1) Hematology: Severe symptomatic blood loss anemia - Hgb 4.5 on admission - S/p PRBC 04/07, 04/08, 04/13 - Hgb stable 8.9 - Continue to monitor Thrombocytopenia - Resolved 2) Cardiology: Acute on chronic systolic heart failure - Severe mitral regurg - Continue Lasix 20mg IVP daily A.fib - HR controlled - Continue Lovenox - Continue Coreg for rate control CAD s/p cardiac stenting - Continue ASA - Continue Lipitor - Appreciate cardiology consult 3) GI: 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 - For partial colectomy once cleared by cardiology - Appreciate surgical consult 4) : AMANDA - Resolved 5) Endocrine: Hypothyroidism - Continue Synthroid 6) Pulmonary: Lung nodules - On CT 04/18/17: lung nodules unchanged from 10/11/2016 - Will need outpatient follow-up to continue to monitor - Further recommendations per pulmonary 7) F/E/N: - Sodium controlled diet - Monitor electrolytes 8) Prophylaxis: - On Lovenox - OOB ambulating 9) Dispo: - Requires continued inpatient care - Patient did express that she does not want to be intubated and she does not want chest compressions if her heart stops after surgery. The patient does not want to wish to sign a DNR/DNI now. She states her sister is her health care proxy and she knows her wishes if anything were to happen. CODE STATUS: FULL CODE Visit type - Emergency Visit Emergency Visit: Yes ED Registration Date: 04/07/17 Care time: The patient presented to the Emergency Department on the above date and was hospitalized for further evaluation of their emergent condition. - New Patient This patient is new to me today: No - Critical Care Critical Care patient: No
[2017-04-21] MEDS: PANTOPRAZOLE 40 MG TABLET (FP) PO SCH (09:06)
[2017-04-21] MEDS: DOCUSATE SODIUM 100 MG CAPSULE (FP) PO SCH ×2 (09:06→21:32)
[2017-04-21] MEDS: CARVEDILOL 12.5 MG TABLET (FP) PO SCH ×2 (09:06→21:32)
[2017-04-21] MEDS: FUROSEMIDE 40 MG/4 ML INJECTABLE VIAL IVPUSH SCH (09:06)
[2017-04-21] MEDS: POLYETHYLENE GLYCOL 3350 119 GM BTL PO SCH (09:07)
[2017-04-21] MEDS: DORZOLAMIDE 2% HCL OPHTHALMIC SOLUTION 10 ML BOTTLE OU SCH (09:08)
[2017-04-21] MEDS: ENOXAPARIN NA (PORCINE) 60 MG/0.6 ML DISP.SYRIN SQ SCH ×2 (09:25→21:32)
--- NOTE | 2017-04-21 10:55 | PN ---
Progress Note, Physician History of Present Illness: seen and examined today in nad. no overnight events. no new complaints. - Current Medication List Current Medications: Active Medications Acetaminophen (Tylenol -) 650 mg PO Q6H PRN PRN Reason: FEVER OR PAIN Last Admin: 04/21/17 05:36 Dose: 650 mg Aspirin (Ecotrin -) 81 mg PO DAILY [facility] Last Admin: 04/17/17 10:14 Dose: 81 mg Atorvastatin Calcium (Lipitor -) 40 mg PO HS [facility] Last Admin: 04/20/17 22:22 Dose: 40 mg Carvedilol (Coreg -) 12.5 mg PO BID [facility] Last Admin: 04/21/17 09:06 Dose: 12.5 mg Docusate Sodium (Colace -) 100 mg PO BID [facility] Last Admin: 04/21/17 09:06 Dose: 100 mg Dorzolamide HCl (Trusopt 2%) 1 drop OU DAILY [facility] Last Admin: 04/21/17 09:08 Dose: 1 drop Enoxaparin Sodium (Lovenox -) 60 mg SQ BID [facility] Last Admin: 04/21/17 09:25 Dose: 60 mg Furosemide (Lasix Injection -) 20 mg IVPUSH DAILY [facility] Last Admin: 04/21/17 09:06 Dose: 20 mg Isosorbide Mononitrate (Imdur -) 30 mg PO HS [facility] Last Admin: 04/20/17 22:22 Dose: 30 mg Latanoprost (Xalatan 0.005% Eye Drops -) 1 drop OU HS [facility] Last Admin: 04/20/17 22:22 Dose: 1 drop Levothyroxine Sodium (Synthroid -) 100 mcg PO AM [facility] Last Admin: 04/21/17 05:37 Dose: 100 mcg Pantoprazole Sodium (Protonix -) 40 mg PO DAILY [facility] Last Admin: 04/21/17 09:06 Dose: 40 mg Polyethylene Glycol (Miralax (For Daily Use) -) 17 gm PO DAILY [facility] Last Admin: 04/21/17 09:07 Dose: Not Given Senna (Senna -) 2 tab PO HS PRN PRN Reason: CONSTIPATION Last Admin: 04/15/17 21:24 Dose: 2 tab - Objective Vital Signs: Vital Signs Temperature 98.5 F 04/21/17 05:59 Pulse Rate 78 04/21/17 05:59 Respiratory Rate 20 04/21/17 05:59 Blood Pressure 121/80 04/21/17 05:59 O2 Sat by Pulse Oximetry (%) 94 L 04/20/17 21:00 Constitutional: Yes: No Distress, Calm Eyes: Yes: Conjunctiva Clear, EOM Intact, PERRL HENT: Yes: Atraumatic, Normocephalic Neck: Yes: Supple, Trachea Midline Cardiovascular: Yes: Pulse Irregular, S1, S2. No: Regular Rate and Rhythm, Bradycardia, Tachycardia, Bruit, JVD, Gallop, Murmur, Rub, S3, S4, Varicosities Respiratory: Yes: Regular, CTA Bilaterally. No: Rales, Rhonchi, Wheezes Gastrointestinal: Yes: Normal Bowel Sounds, Soft. No: Distention, Tenderness Musculoskeletal: Yes: WNL Extremities: Yes: WNL Edema: LLE: Trace, RLE: Trace Peripheral Pulses WNL: Yes Peripheral Pulses: Left Doralis Pedis: 2+, Right Dorsalis Pedis: 2+ Neurological: Yes: Alert, Oriented Psychiatric: Yes: Alert, Oriented Labs: CBC, BMP 04/21/17 06:25 04/20/17 05:05 INR, PTT INR 1.50 (0.82-1.09) H 04/09/17 05:25 Fibrinogen 295.0 mg/dL (238-498) 04/08/17 05:45 - ....Imaging Chest X-ray: Report Reviewed, Image Reviewed EKG: Report Reviewed, Image Reviewed Other: Report Reviewed, Image Reviewed (tele-AFib, HR controlled, no sig pauses) Assessment/Plan 82 year old woman with a history of triple vessel CAD (s/p mid-RCA DEstent 2015 ; no PCI needed on coronary angiogram 01/2017, but noted severe MR, mild- moderate LV dysfunction, and moderately severe pulmonary HTN; pt refused trans- apical mitral valve replacement), afib, COPD, HTN, HLD, admitted for evaluation of generalized weakness and shortness of breath. Acute on chronic systolic CHF and Severe mitral regurgitation, b/l pleural effusions -01/2017 coronary angiogram showed triple vessel CAD (no PCI required); hx mid- RCA-->drug-eleuting stent 2015. -Pt refused trans-apical mitral valve replacement at the time. -cont IV Lasix for now -cont coreg -monitor I/Os, bun/creat, electrolytes and replete as needed Anemia/GI bleed -found to have adenocarcinoma. -As per Dr. Jiménez's notes pt is at high risk for a aravind-operative cardiac event (multi-vessel CAD; mild LV dysfunction/CHF; severe MR and pulmonary HTN; COPD; AF). There is not a current absolute cardiac contraindication to the procedure, and there is no additional cardiac work up or treatment that will lessen her overall risk, she is currently in HER optimal cardiac condition for a surgical procedure therefore if surgery necessary would recommend to proceed without delay for additional cardiac work up. -Cont aspirin, does not require plavix at this time so it can be held for now -On Lovenox to bridge through surgical procedure; restart PO anticoagulation post-surgery. - f/u Is and Os, electrolytes, daily weight, BUN/Cr. Keep Mg 2.0 -2.3, K 4.0-4.5, and PO4 2.5-3.5. Atrial fibrillation-HR adequately controlled currently -on ASA for CAD;on Lovenox pending hemicolectomy to resume oral AC post op when safe to do so -Continue carvedilol for HR control and systolic CHF CAD-with prior stents as above -cont ASA, does not require plavix at this time as >1 year since last stent -cont coreg, imdur, lipitor
[2017-04-21] MEDS: ISOSORBIDE MONONITRATE 30 MG TAB.SR.24H (FP) PO SCH (21:32)
[2017-04-21] MEDS: ATORVASTATIN CA 40 MG TABLET (FP) PO SCH (21:32)
[2017-04-21] MEDS: LATANOPROST 0.005% OPHTH SOLN 2.5ML BOTTLE OU SCH (21:33)
[2017-04-22] MEDS: LEVOTHYROXINE NA 100 MCG TABLET (FP) PO SCH (06:09)
[2017-04-22 08:06] LABS: BASO % 1.4 % (0-2.0); EOS % 3.6 % (0-4.5); HEMATOCRIT 24.3 % (32.4-45.2); HEMOGLOBIN 7.8 GM/dL (10.7-15.3); LYMPH % 19.4 % (8-40); MCH 27.5 pg (25.7-33.7); MEAN CELL VOLUME 85.8 fl (80-96); MEAN PLT VOLUME 7.8 fl (7.5-11.1); MONO % 13.7 % (3.8-10.2); NEUT % 61.9 % (42.8-82.8); PLATELET COUNT 152 K/MM3 (134-434); RBC 2.84 M/mm3 (3.60-5.2); RDW 18.2 % (11.6-15.6); WHITE BLOOD COUNT 4.3 K/mm3 (4.0-10.0)
[2017-04-22 08:27] LABS: INR 1.18 (0.82-1.09); PROTHROMBIN TIME (PATIENT) 13.3 SEC (9.98-11.88)
[2017-04-22 08:30] LABS: ACTIVATED PTT 34.6 SECONDS (26.9-34.4)
--- NOTE | 2017-04-22 09:29 | PN ---
Progress Note (short form) - Note Progress Note: Anesthesia consult Pt seen and evaluated per request of Dr Weston Vital Signs Temperature 98.9 F 04/22/17 02:00 Pulse Rate 80 04/22/17 08:08 Respiratory Rate 20 04/22/17 08:08 Blood Pressure 120/70 04/22/17 08:08 O2 Sat by Pulse Oximetry (%) 95 04/21/17 21:00 CBC, BMP 04/22/17 07:34 04/20/17 05:05 Current Active Problems AMANDA (acute kidney injury) (Acute) Anemia (Acute) Colon cancer (Acute) GI bleed (Acute) Hypotension (Acute) Severe mitral regurgitation (Acute) A/P:82 yo female with multiple medical history including significant cardiac disease with colon cancer. Severe anemia and CHF. High risk for periop cardiac/pulmonary events and possible prolonged post op intubation Reviewed previous Endoscopy anesthesia records and spoke to the anesthesiologist who agrees with assessment. May consider doing surgery equipped with CICU facility Dorian Wagner MD.
--- NOTE | 2017-04-22 09:35 | PN ---
GI Progress Note Subjective: I was asked to see patient because of one episode of rectal bleeding. Presently she is on Lovenox. Colonoscopy report reviwed. Patient has multiple mucosal splits in the right colon most likely secondary to ischemia. She also has multiple scattered diverticula. She is short of breath but denies LOC and chest pain - Objective Vital Signs: Vital Signs Temperature 98.9 F 04/22/17 02:00 Pulse Rate 80 04/22/17 08:08 Respiratory Rate 20 04/22/17 08:08 Blood Pressure 120/70 04/22/17 08:08 O2 Sat by Pulse Oximetry (%) 95 04/21/17 21:00 Constitutional: Well Nourished Eyes: Yes: Conjunctiva Clear HENT: Yes: Atraumatic Neck: Yes: Trachea Midline Cardiovascular: Yes: Regular Rate and Rhythm Respiratory: Yes: CTA Bilaterally ...Palpate: Yes: Soft. No: Firm/Rigid, Guarding, Hepatomegaly, Pulsatile Mass, Splenomegaly, Tenderness Labs: CBC, BMP 04/22/17 07:34 04/20/17 05:05 INR, PTT INR 1.18 (0.82-1.09) H 04/22/17 07:34 Fibrinogen 295.0 mg/dL (238-498) 04/08/17 05:45 Problem List - Problems (1) GI bleed Assessment/Plan: most likely secondary to right colon ischemia vs diverticular bleeding R> awaiting surgery transfuse 2 units of PRBC clear liquids for now Code(s): K92.2 - GASTROINTESTINAL HEMORRHAGE, UNSPECIFIED Qualifiers: GI bleed type/associated pathology: unspecified gastrointestinal hemorrhage type Qualified Code(s): K92.2 - Gastrointestinal hemorrhage, unspecified (2) Colon cancer Code(s): C18.9 - MALIGNANT NEOPLASM OF COLON, UNSPECIFIED
[2017-04-22] MEDS: FUROSEMIDE 40 MG/4 ML INJECTABLE VIAL IVPUSH SCH (09:53)
[2017-04-22] MEDS: DOCUSATE SODIUM 100 MG CAPSULE (FP) PO SCH ×2 (09:53→21:01)
[2017-04-22] MEDS: CARVEDILOL 12.5 MG TABLET (FP) PO SCH ×2 (09:53→21:01)
[2017-04-22] MEDS: PANTOPRAZOLE 40 MG TABLET (FP) PO SCH (09:54)
[2017-04-22] MEDS: DORZOLAMIDE 2% HCL OPHTHALMIC SOLUTION 10 ML BOTTLE OU SCH (09:54)
[2017-04-22] MEDS: POLYETHYLENE GLYCOL 3350 119 GM BTL PO SCH (09:54)
--- NOTE | 2017-04-22 10:53 | PN ---
Progress Note (short form) - Note Progress Note: Subjective: The patient was seen and examined at the bedside, she reports having bloody bowel movement today Hgb 7.8 today, will order 2u PRBC Per GI, ASA and lovenox on hold Current Medications Generic Name Dose Route Start Last Admin Trade Name Freq PRN Reason Stop Dose Admin Acetaminophen 650 mg 04/19/17 07:46 04/21/17 05:36 Tylenol - PO 650 mg Q6H PRN Administration FEVER OR PAIN Aspirin 81 mg 04/14/17 10:00 04/17/17 10:14 Ecotrin - PO 81 mg DAILY LUKE Administration Atorvastatin Calcium 40 mg 04/19/17 22:00 04/20/17 22:22 Lipitor - PO 40 mg HS LUKE Administration Carvedilol 12.5 mg 04/19/17 10:00 04/21/17 09:06 Coreg - PO 12.5 mg BID LUKE Administration Docusate Sodium 100 mg 04/14/17 22:00 04/21/17 09:06 Colace - PO 100 mg BID LUKE Administration Dorzolamide HCl 1 drop 04/19/17 10:00 04/21/17 09:08 Trusopt 2% OU 1 drop DAILY LUKE Administration Enoxaparin Sodium 60 mg 04/17/17 10:00 04/21/17 09:25 Lovenox - SQ 60 mg BID LUKE Administration Furosemide 20 mg 04/18/17 17:45 04/21/17 09:06 Lasix Injection - IVPUSH 20 mg DAILY LUKE Administration Isosorbide Mononitrate 30 mg 04/19/17 22:00 04/20/17 22:22 Imdur - PO 30 mg HS LUKE Administration Latanoprost 1 drop 04/19/17 22:00 04/20/17 22:22 Xalatan 0.005% Eye Drops - OU 1 drop HS LUKE Administration Levothyroxine Sodium 100 mcg 04/20/17 07:00 04/21/17 05:37 Synthroid - PO 100 mcg AM LUKE Administration Pantoprazole Sodium 40 mg 04/14/17 10:00 04/21/17 09:06 Protonix - PO 40 mg DAILY LUKE Administration Polyethylene Glycol 17 gm 04/14/17 10:30 04/21/17 09:07 Miralax (For Daily Use) - PO Not Given DAILY LUKE Senna 2 tab 04/15/17 18:18 04/15/17 21:24 Senna - PO 2 tab HS PRN Administration CONSTIPATION Objective: Vital Signs Period Temp Pulse Resp BP Sys/[place] Pulse Ox Last 24 Hr 98.1 F-98.5 F 71-106 18-20 109-128/68-80 94 Physical Exam: General: NAD, A&Ox3 Lungs: CTA bilaterally Heart: Irregular, S1S2 Abd: Soft, non-tender, non-distended. Normoactive bowel sounds Ext: Warm, 1+ b/l lower extremity pitting edema CBCD WBC 4.3 K/mm3 (4.0-10.0) 04/22/17 07:34 RBC 2.84 M/mm3 (3.60-5.2) L 04/22/17 07:34 Hgb 7.8 GM/dL (10.7-15.3) L D 04/22/17 07:34 Hct 24.3 % (32.4-45.2) L 04/22/17 07:34 MCV 85.8 fl (80-96) 04/22/17 07:34 MCHC 32.0 g/dl (32.0-36.0) 04/22/17 07:34 RDW 18.2 % (11.6-15.6) H 04/22/17 07:34 Plt Count 152 K/MM3 (134-434) 04/22/17 07:34 MPV 7.8 fl (7.5-11.1) 04/22/17 07:34 CMP Sodium 136 mmol/L (136-145) 04/20/17 05:05 Potassium 4.0 mmol/L (3.5-5.1) 04/20/17 05:05 Chloride 101 mmol/L (98-107) 04/20/17 05:05 Carbon Dioxide 29 mmol/L (21-32) 04/20/17 05:05 Anion Gap 6 (8-16) L 04/20/17 05:05 BUN 18 mg/dL (7-18) 04/20/17 05:05 Creatinine 1.0 mg/dL (0.55-1.02) D 04/20/17 05:05 Creat Clearance w eGFR 35.82 (>60) 04/09/17 05:25 Random Glucose 89 mg/dL (74-106) 04/20/17 05:05 Calcium 7.9 mg/dL (8.5-10.1) L 04/20/17 05:05 Total Bilirubin 1.7 mg/dL (0.2-1.0) H 04/09/17 05:25 AST 13 U/L (15-37) L 04/09/17 05:25 ALT 19 U/L (12-78) 04/09/17 05:25 Alkaline Phosphatase 49 U/L (45-117) 04/09/17 05:25 Total Protein 5.5 g/dl (6.4-8.2) L 04/09/17 05:25 Albumin 2.9 g/dl (3.4-5.0) L 04/09/17 05:25 CARDIAC ENZYMES Creatine Kinase 59 IU/L (26-192) 04/07/17 12:15 Troponin I 0.02 ng/ml (0.00-0.05) 04/08/17 05:45 Microbiology 04/15/17 21:30 Urine - Urine Clean Catch Urine Culture - Final NO GROWTH OBTAINED 04/07/17 12:15 Blood - Peripheral Venous Blood Culture - Final NO GROWTH AFTER 5 DAYS INCUBATION 04/07/17 12:15 Blood - Peripheral Venous Blood Culture - Final Staphylococcus Epidermidis 04/07/17 12:27 Urine - Urine Clean Catch Urine Culture - Final Contaminated: Please Repeat Assessment: This is an 82 year old female with PMHx of HTN, hyperlipidemia, CAD s/p NSTEMI with stent x1 (09/2016), s/p positive stress MIBI (01/2017), a.fib, systolic heart failure, COPD, hypothyroidism, who presented to the ED with weakness and shortness of breath Plan: 1) Hematology: Severe symptomatic blood loss anemia 2/2 GI bleeding - Hgb 4.5 on admission - S/p PRBC 04/07, 04/08, 04/13 - Now with Hgb 7.8, and bloody bowel movement. 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 - For partial colectomy once cleared by cardiology - Appreciate surgical consult 4) : AMANDA - Resolved 5) Endocrine: Hypothyroidism - Continue Synthroid 6) Pulmonary: Lung nodules - On CT 04/18/17: lung nodules unchanged from 10/11/2016 - Will need outpatient follow-up to continue to monitor - Further recommendations per pulmonary 7) F/E/N: - Diet per GI, clear liquids - Monitor electrolytes 8) Prophylaxis: - Lovenox on hold now per GI 2/2 gi bleed - OOB ambulating 9) Dispo: - Requires continued inpatient care - Patient did express that she does not want to be intubated and she does not want chest compressions if her heart stops after surgery. The patient does not want to wish to sign a DNR/DNI now. She states her sister is her health care proxy and she knows her wishes if anything were to happen. CODE STATUS: FULL CODE Visit type - Emergency Visit Emergency Visit: Yes ED Registration Date: 04/07/17 Care time: The patient presented to the Emergency Department on the above date and was hospitalized for further evaluation of their emergent condition. - New Patient This patient is new to me today: No - Critical Care Critical Care patient: No
--- NOTE | 2017-04-22 19:35 | DS ---
Physical Examination Vital Signs: Vital Signs Temperature 99.0 F 04/22/17 17:00 Pulse Rate 100 H 04/22/17 17:00 Respiratory Rate 20 04/22/17 17:00 Blood Pressure 133/82 04/22/17 17:00 O2 Sat by Pulse Oximetry (%) 96 04/22/17 09:00 Labs: CBC, BMP 04/22/17 07:34 04/20/17 05:05 Discharge Summary Reason For Visit: ACUTE KIDNEY INJURY; GI BLEEDING; ANEMIA Current Active Problems AMANDA (acute kidney injury) (Acute) Anemia (Acute) Colon cancer (Acute) GI bleed (Acute) Hypotension (Acute) Severe mitral regurgitation (Acute) Condition: Guarded - Instructions Referrals: Kirsty Hodges MD [Primary Care Provider] - Sunil Boyle [Staff Physician] - Paolo Jiménez MD [Staff Physician] - Disposition: TRANSFER ACUTE CARE/OTHER HOSP - Home Medications Comprehensive Discharge Medication List: Ambulatory Orders Travoprost (Benzalkonium) [Travatan 0.004% Eye Drop] 1 gtt OD HS 05/29/11 Levothyroxine [Synthroid -] 100 mcg PO DAILY 03/19/15 Potassium Chloride [Klor-Con M20] 20 meq PO ASDIR 03/19/15 Dorzolamide HCl [Trusopt] 1 drop OU DAILY 10/15/15 Apixaban [Eliquis] 2.5 mg PO BID 10/11/16 Aspirin [ASA -] 81 mg PO DAILY 10/11/16 Atorvastatin Ca [Lipitor] 40 mg PO HS 10/11/16 Lisinopril 5 mg PO DAILY 10/11/16 Carvedilol [Coreg -] 12.5 mg PO BID #60 tablet 10/12/16 Furosemide [Lasix] 40 mg PO DAILY #30 tablet 10/12/16 Albuterol Sulfate Inhaler - [Ventolin Hfa Inhaler -] 1 - 2 inh PO PRN PRN Clopidogrel Bisulfate [Plavix -] 75 mg PO DAILY 04/07/17 Isosorbide Mononitrate [Isosorbide Mononitrate ER] 30 mg PO HS 04/07/17 Latanoprost 0.005% Eye Drops [Xalatan 0.005% Eye Drops -] 1 drop OU HS 04/07/17 Pantoprazole Sodium [Protonix] 40 mg PO DAILY 04/07/17
[2017-04-22 20:11] VITALS: BP 122/75; PULSE 84; TEMP 97.4
[2017-04-22] MEDS: ATORVASTATIN CA 40 MG TABLET (FP) PO SCH (21:01)
[2017-04-22] MEDS: LATANOPROST 0.005% OPHTH SOLN 2.5ML BOTTLE OU SCH (21:01)
[2017-04-22] MEDS: ISOSORBIDE MONONITRATE 30 MG TAB.SR.24H (FP) PO SCH (21:01)
--- NOTE | 2017-04-25 21:44 | PN ---
Progress Note, Physician - Objective Vital Signs: Vital Signs Temperature 97.4 F L 04/22/17 22:00 Pulse Rate 84 04/22/17 22:00 Respiratory Rate 20 04/22/17 22:00 Blood Pressure 122/75 04/22/17 22:00 O2 Sat by Pulse Oximetry (%) 98 04/22/17 21:00 Labs: CBC, BMP 04/22/17 07:34 04/20/17 05:05 INR, PTT INR 1.18 (0.82-1.09) H 04/22/17 07:34 Fibrinogen 295.0 mg/dL (238-498) 04/08/17 05:45 Problem List - Problems (1) Severe mitral regurgitation Code(s): I34.0 - NONRHEUMATIC MITRAL (VALVE) INSUFFICIENCY (2) Anemia Code(s): D64.9 - ANEMIA, UNSPECIFIED Qualifiers: Anemia type: unspecified type Qualified Code(s): D64.9 - Anemia, unspecified (3) GI bleed Code(s): K92.2 - GASTROINTESTINAL HEMORRHAGE, UNSPECIFIED Qualifiers: GI bleed type/associated pathology: unspecified gastrointestinal hemorrhage type Qualified Code(s): K92.2 - Gastrointestinal hemorrhage, unspecified (4) ASHD (arteriosclerotic heart disease) Code(s): I25.10 - ATHSCL HEART DISEASE OF [place] CORONARY ARTERY W/O ANG PCTRS (5) Acute on chronic systolic (congestive) heart failure Code(s): I50.23 - ACUTE ON CHRONIC SYSTOLIC (CONGESTIVE) HEART FAILURE (6) Anxiety Code(s): F41.9 - ANXIETY DISORDER, UNSPECIFIED (7) Atrial fibrillation Code(s): I48.91 - UNSPECIFIED ATRIAL FIBRILLATION Qualifiers: Atrial fibrillation type: unspecified Qualified Code(s): I48.91 - Unspecified atrial fibrillation (8) COPD (chronic obstructive pulmonary disease) Code(s): J44.9 - CHRONIC OBSTRUCTIVE PULMONARY DISEASE, UNSPECIFIED (9) Moderate to severe pulmonary hypertension Code(s): I27.2 - OTHER SECONDARY PULMONARY HYPERTENSION * DO NOT USE *
== END 2017-04-22 23:00 | disposition short-term general hospital (02) | DRG 374 ==
LOC: JER 11:17 → JERBED 14:46 → JICU 19:52 → J4W 04-08 18:55
PROVIDERS: ADMIT Internal Medicine; ATTEND Registered Nurse
PROC: 30233N1 Transfusion of Nonautologous Red Blood Cells into Peripheral Vein, Percutaneous Approach (ICD-10-PCS; 2017-04-07)
PROC: 30233R1 Transfusion of Nonautologous Platelets into Peripheral Vein, Percutaneous Approach (ICD-10-PCS; 2017-04-07)
PROC: 0DBL8ZX Excision of Transverse Colon, Via Natural or Artificial Opening Endoscopic, Diagnostic (ICD-10-PCS; 2017-04-10)
PROC: 0DD68ZX Extraction of Stomach, Via Natural or Artificial Opening Endoscopic, Diagnostic (ICD-10-PCS; principal; 2017-04-10 18:00)
DX: C18.3 Malignant neoplasm of hepatic flexure (principal); I50.23 Acute on chronic systolic (congestive) heart failure; K92.2 Gastrointestinal hemorrhage, unspecified; D62 Acute posthemorrhagic anemia; N17.9 Acute kidney failure, unspecified; E87.2 Acidosis; I34.0 Nonrheumatic mitral (valve) insufficiency; E03.9 Hypothyroidism, unspecified; I11.0 Hypertensive heart disease with heart failure; I25.10 Atherosclerotic heart disease of native coronary artery without angina pectoris; Z98.61 Coronary angioplasty status; I25.2 Old myocardial infarction; R91.1 Solitary pulmonary nodule; I95.9 Hypotension, unspecified; I27.20 Pulmonary hypertension, unspecified; E78.5 Hyperlipidemia, unspecified; I48.91 Unspecified atrial fibrillation; D69.6 Thrombocytopenia, unspecified; E83.42 Hypomagnesemia; E87.6 Hypokalemia; J44.9 Chronic obstructive pulmonary disease, unspecified; Z87.891 Personal history of nicotine dependence; F41.9 Anxiety disorder, unspecified
CPT/HCPCS: 36415; 36430; 36511; 71010-TC; 71260-TC; 74178-TC; 80048; 80053; 81003; 81015; 82272; 82550; 82803; 83605; 83735; 83880; 84100; 84484; 85025; 85027; 85384; 85610; 85730; 86850; 86900; 86901; 86922; 87040; 87086; 87186; 88305-TC; 93005; 93010; 94760; 94761; 97116-GP; 97161-GP; 99285-25; P9034; P9038; P9058; Q9967

== ENCOUNTER 2017-09-22 15:15 | Inpatient (IN) | payer BC, OTHER ==
[2017-09-22] MEDS ORDERED: morphine CARPU-JECT 4 MG/1 ML DISP.SYRIN IVPUSH ONE ×2 (15:40→17:36)
[2017-09-22] MEDS ORDERED: morphine SULFATE 4 MG/ML VIAL ONE ×2 (15:55→17:48)
--- NOTE | 2017-09-22 16:00 | PDOC ---
History of Present Illness - General Chief Complaint: Pain, Acute Stated Complaint: RIGHT RIB PAIN Time Seen by Provider: 09/22/17 15:31 - History of Present Illness Initial Comments: 09/22/17 16:27 The patient is an 82 year old female with past medical history of hypertension, hyperlipidemia hypothyroidism, atrial fibrillation (on aspirin) CAD s/p NSTEMI s /p stent x1, CHF, COPD, colon CA, and AMANDA who presents to the ED with complaints of SOB that began today s/p fall. The patient states she was in the kitchen trying to open up a can of mandarin oranges when she pulled the lid off too hard, causing her to slip out of her slippers and fall onto the floor, hitting her right side on the radiator. She reports rib pain and shortness of breath immediately after the incident. She denies any head strike, LOC, or any focal neurological deficits. She denies any associated chest pain, palpitations , diaphoresis, nausea, vomiting, diarrhea, or urinary complaints. PCP: Dr. Penny Past History - Past Medical History Allergies/Adverse Reactions: Allergies Allergy/AdvReac Type Severity Reaction Status Date / Time cephalexin [Cephalexin] Allergy Intermediate Rash Verified 09/22/17 15:16 clindamycin Allergy Intermediate Rash Verified 09/22/17 15:16 naproxen [From Naprosyn] Allergy Intermediate ANKLES Verified 09/22/17 15:16 SWELLED UP Penicillins Allergy Intermediate Rash Verified 09/22/17 15:16 diphenhydramine HCl AdvReac CAN'T Verified 09/22/17 15:16 [From Benadryl] HAVE,HAS GLAUCOMA Home Medications: Ambulatory Orders Levothyroxine [Synthroid -] 100 mcg PO DAILY 03/19/15 Dorzolamide HCl [Trusopt] 1 drop OU DAILY 10/15/15 Atorvastatin Ca [Lipitor] 40 mg PO HS 10/11/16 Lisinopril 5 mg PO DAILY 10/11/16 Carvedilol [Coreg -] 12.5 mg PO BID #60 tablet 10/12/16 Isosorbide Mononitrate [Isosorbide Mononitrate ER] 30 mg PO DAILY 04/07/17 Latanoprost 0.005% Eye Drops [Xalatan 0.005% Eye Drops -] 1 drop OU HS 04/07/17 Pantoprazole Sodium [Protonix] 40 mg PO DAILY 04/07/17 Aspirin [Ecotrin] 81 mg PO DAILY 09/22/17 Furosemide [Lasix] 80 mg PO DAILY 09/22/17 Anemia: No Asthma: No Cancer: No Cardiac Disorders: Yes (STENT) CVA: No COPD: No CHF: No DVT: No Dementia: No Diabetes: No GI Disorders: Yes (GERD) Disorders: No HTN: Yes Hypercholesterolemia: Yes Liver Disease: No Seizures: No Thyroid Disease: Yes () - Surgical History Abdominal Surgery: No Appendectomy: No Cardiac Surgery: Yes (STENT 10/27/15) Cholecystectomy: No Lung Surgery: No Neurologic Surgery: No Orthopedic Surgery: No - Suicide/Smoking/Psychosocial Hx Smoking History: Former smoker Have you smoked in the past 12 months: No Number of Cigarettes Smoked Daily: 40 If you are a former smoker, when did you quit?: 23 YEARS AGO Information on smoking cessation initiated: No Hx Alcohol Use: No Drug/Substance Use Hx: No Substance Use Type: None Hx Substance Use Treatment: No Review of Systems - Review of Systems Comments:: 09/22/17 16:27 GENERAL/CONSTITUTIONAL: No fever or chills. No weakness. HEAD, EYES, EARS, NOSE AND THROAT: No change in vision. No ear pain or discharge. No sore throat. GASTROINTESTINAL: No nausea, vomiting, diarrhea or constipation. GENITOURINARY: No dysuria, frequency, or change in urination. CARDIOVASCULAR: No chest pain or shortness of breath. RESPIRATORY: (+) shortness of breath. No cough, wheezing, or hemoptysis. MUSCULOSKELETAL: (+) right rib pain. No neck or back pain. SKIN: No rash NEUROLOGIC: No headache, vertigo, loss of consciousness, or change in strength/ sensation. ENDOCRINE: No increased thirst. No abnormal weight change. HEMATOLOGIC/LYMPHATIC: No anemia, easy bleeding, or history of blood clots. ALLERGIC/IMMUNOLOGIC: No hives or skin allergy. *Physical Exam - Vital Signs Last Vital Signs Temp Pulse Resp BP Pulse Ox 98 F 101 H 20 145/55 91 L 09/22/17 15:15 09/22/17 15:15 09/22/17 15:15 09/22/17 15:15 09/22/17 15:15 - Physical Exam Comments: 09/22/17 16:33 GENERAL: Awake, alert, appears uncomfortable HEAD: No signs of trauma EYES: PERRLA, EOMI, sclera anicteric, conjunctiva clear ENT: Auricles normal inspection, hearing grossly normal, nares patent, oropharynx clear without exudates. Moist mucosa NECK: Normal ROM, supple, no lymphadenopathy, JVD, or masses LUNGS: diminished BS at the R lung base. Fair air movement. No wheezes, and no crackles. R sided mid axillary rib pain along ribs 7-9 HEART: Regular rate and rhythm, normal S1 and S2, no murmurs, rubs or gallops ABDOMEN: Soft, nontender, normoactive bowel sounds. No guarding, no rebound. No masses EXTREMITIES: Normal range of motion, no edema. No clubbing or cyanosis. No cords, erythema, or tenderness BACK: No midline spinal tenderness in cervical/thoracic/lumbar region NEUROLOGICAL: Normal speech, cranial nerves intact, 5/5 strength in all 4 extremities, normal sensation to light touch in all 4 extremities, normal reflexes and tone. Gait deferred. SKIN: Warm, Dry, normal turgor, no rashes or lesions noted. Heart Score/ECG Review #1 09/22/17 16:34 Twelve-lead EKG was performed and reviewed by me. Atrial fibrillation, rate 95. Normal axis. No ST elevations. ED Treatment Course - LABORATORY CBC & Chemistry Diagram: 09/22/17 15:40 09/22/17 15:40 - RADIOLOGY Radiology Studies Ordered: Category Date Time Status CHEST CT WITHOUT CONTRAST [CT] Stat CT Scan 09/22/17 15:39 Ordered Medical Decision Making - Medical Decision Making 09/22/17 15:59 82yo F with MMP presents to the ED with right sided rib pain after falling onto the radiator. Vitals with hypoxia to 91% although pt has hx of COPD. BS mildly diminished at base of R lung. Will obtain labs and trauma work up. Pt given morphine for 10/ pain control - reports hx of hallucinations with morphine but no hx swelling, rash, sob, vomiting. 09/22/17 17:47 CT CHest with no acute rib fx. +mildly increased b/l pleural effusions as well as mild to moderate pericardial effusion. Labs remarkable for hgb 8.1 (last 7.8 in april) and community midwife elevated to 1.6 with BUN in 40s which is new as her community midwife is usually in low 1s. BUN/creatinine is pre-renal, will give 500cc bolus (pt has CHF). Case discussed with Dr. Gaston, pt admitted for likely rib contusion, pain control, and AMANDA. Case discussed in detail with admitting physician including history, physical exam and ancillary studies. Admitting physician has assumed care for the patient, will follow all pending diagnostics and will complete the evaluation and treatment. *DC/Admit/Observation/Transfer Diagnosis at time of Disposition: Contusion of rib on right side, Hypoxia, AMANDA (acute kidney injury) - Discharge Dispostion Condition at time of disposition: Stable Decision to Admit order: Yes - Referrals - Patient Instructions - Post Discharge Activity - Attestations Physician Attestion: 09/22/17 17:50 I, Dr. Jessica Richards MD, attest that this document has been prepared under my direction and personally reviewed by me in its entirety. I further attest, that it accurately reflects all work, treatment, procedures and medical decision -making performed by me.
[2017-09-22 16:31] LABS: BASO % 2.3 % (0-2.0); EOS % 1.8 % (0-4.5); HEMATOCRIT 25.9 % (32.4-45.2); HEMOGLOBIN 8.1 GM/dl (10.7-15.3); LYMPH % 7.2 % (8-40); MCH 25.2 pg (25.7-33.7); MCHC 31.4 g/dl (32.0-36.0); MEAN CELL VOLUME 80.2 fl (80-96); MEAN PLT VOLUME 8.6 fl (7.5-11.1); MONO % 11.7 % (3.8-10.2); PLATELET COUNT 175 K/MM3 (134-434); RBC 3.23 M/mm3 (3.60-5.2); RDW 21.6 % (11.6-15.6); WHITE BLOOD COUNT 5.4 K/mm3 (4.0-10.8)
[2017-09-22 16:35] LABS: ADD RBC MORPHOLOGY YES
[2017-09-22 16:42] LABS: INR 1.45 (0.82-1.09); PROTHROMBIN TIME (PATIENT) 16.1 SEC (10.2-13.0)
[2017-09-22 16:51] LABS: ALBUMIN 3.9 g/dl (3.5-5.0); ALK PHOS 48 U/L (32-92); ANION GAP 10 (8-16); BILIRUBIN,TOTAL 1.3 mg/dl (0.2-1.0); BLOOD UREA NITROGEN 43 mg/dl (7-18); CHLORIDE 93 mmol/L (98-107); CO2 27 mmol/L (22-28); CREATININE 1.6 mg/dl (0.6-1.3); GLUCOSE,RANDOM 115 mg/dl (74-106); POTASSIUM 4.8 mmol/L (3.5-5.1); SGOT/AST 28 U/L (10-42); SGPT/ALT 12 U/L (10-40); SODIUM 130 mmol/L (136-145); TOT PROT 6.9 g/dl (6.4-8.3)
[2017-09-22] MEDS ORDERED: SODIUM CHLORIDE 0.9% 1000 ML INFUS.BAG IV ONE (17:46)
[2017-09-22 18:50] LABS: URINE APPEARANCE Clear; URINE BILIRUBIN Negative (NEGATIVE); URINE BLOOD Negative (NEGATIVE); URINE GLUCOSE (UA) Negative (NEGATIVE); URINE KETONE Negative (NEGATIVE); URINE LEUK ESTERASE Negative (NEGATIVE); URINE NITRITE Negative (NEGATIVE); URINE PROTEIN Negative (NEGATIVE); URINE UROBILINOGEN 0.2 (0.2-1.0)
[2017-09-22 18:53] LABS: URINE COLOR YELLOW
[2017-09-22 20:52] VITALS: BMI 25.0
[2017-09-22 22:20] LABS: ANISOCYTOSIS 3+; MACROCYTOSIS 2+
[2017-09-22 22:21] LABS: PLATELET ESTIMATE ADEQUATE
--- NOTE | 2017-09-22 23:18 | HP ---
CHIEF COMPLAINT: fall, rib pain PCP: [facility] HISTORY OF PRESENT ILLNESS: This is an 82 year old female with a significant past medical history of HTN, HLD, afib, CHF, MS who presented to the ED s/p fall with rib pain. Pt states she lost her balance while opening a can of tangerines and fell, landing on the radiator. c/o right side/rib pain since. ER course was notable for: (1) CT chest without fracture, bilat pl effusions and pericardial effusion present (2) Sodium 130 (3)BUN 43/Cr 1.6 Recent Travel: pt denies PAST MEDICAL HISTORY: HTN, HLD, CHF,CAD, nSTEMI, AFIB, COPD, colon CA, AMANDA, hypothyroid PAST SURGICAL HISTORY: cardiac xtent x 1 2015, L cataract extraction Social History: Smoking: quit age 58, 2ppd x 35 years Alcohol: pt denies Drugs: pt denies Family History: mother age 72 DM, HTN father age 88, old age 2 sisters s/p MS 1 sister with cancer, unk type Allergies cephalexin [Cephalexin] Allergy (Intermediate, Verified 09/22/17 15:16) Rash clindamycin Allergy (Intermediate, Verified 09/22/17 15:16) Rash naproxen [From Naprosyn] Allergy (Intermediate, Verified 09/22/17 15:16) ANKLES SWELLED UP Penicillins Allergy (Intermediate, Verified 09/22/17 15:16) Rash diphenhydramine HCl [From Benadryl] Adverse Reaction (Verified 09/22/17 15:16) CAN'T HAVE,HAS GLAUCOMA HOME MEDICATIONS: 3 Medication Instructions Recorded Levothyroxine [Synthroid -] 100 mcg PO DAILY 03/19/15 Dorzolamide HCl [Trusopt] 1 drop OU DAILY 10/15/15 Atorvastatin Ca [Lipitor] 40 mg PO HS 10/11/16 Lisinopril 5 mg PO DAILY 10/11/16 Carvedilol [Coreg -] 12.5 mg PO BID #60 tablet 10/12/16 Isosorbide Mononitrate [Isosorbide 30 mg PO DAILY 04/07/17 Mononitrate ER] Latanoprost 0.005% Eye Drops 1 drop OU HS 04/07/17 [Xalatan 0.005% Eye Drops -] Pantoprazole Sodium [Protonix] 40 mg PO DAILY 04/07/17 Aspirin [Ecotrin] 81 mg PO DAILY 09/22/17 Furosemide [Lasix] 80 mg PO DAILY 09/22/17 REVIEW OF SYSTEMS CONSTITUTIONAL: Absent: fever, chills, diaphoresis, generalized weakness, malaise, loss of appetite, weight change HEENT: Absent: rhinorrhea, nasal congestion, throat pain, throat swelling, difficulty swallowing, mouth swelling, ear pain, eye pain, visual changes CARDIOVASCULAR: Absent: chest pain, syncope, palpitations, irregular heart rate, lightheadedness , peripheral edema RESPIRATORY: Absent: cough, shortness of breath, dyspnea with exertion, orthopnea, wheezing, stridor, hemoptysis GASTROINTESTINAL: Absent: abdominal pain, abdominal distension, nausea, vomiting, diarrhea, constipation, melena, hematochezia GENITOURINARY: Absent: dysuria, frequency, urgency, hesitancy, hematuria, flank pain, genital pain MUSCULOSKELETAL: Present: right side pain Absent: myalgia, arthralgia, joint swelling, back pain, neck pain SKIN: Absent: rash, itching, pallor HEMATOLOGIC/IMMUNOLOGIC: Absent: easy bleeding, easy bruising, lymphadenopathy, frequent infections ENDOCRINE: Absent: unexplained weight gain, unexplained weight loss, heat intolerance, cold intolerance NEUROLOGIC: Absent: headache, focal weakness or paresthesias, dizziness, unsteady gait, seizure, mental status changes, bladder or bowel incontinence PSYCHIATRIC: Absent: anxiety, depression, suicidal or homicidal ideation, hallucinations. PHYSICAL EXAMINATION Vital Signs - 24 hr 3 09/22/17 09/22/17 09/22/17 15:15 16:48 18:00 Temperature 98 F Pulse Rate 101 H Pulse Rate [ 80 95 H Apical] Respiratory 20 21 19 Rate Blood Pressure 145/55 Blood Pressure 126/62 128/94 [Right Arm] O2 Sat by Pulse 91 L 100 98 Oximetry (%) GENERAL: Awake, alert, and fully oriented, in no acute distress. HEAD: Normal with no signs of trauma. EYES: Pupils equal, round and reactive to light, extraocular movements intact, sclera anicteric, conjunctiva clear. No lid lag. EARS, NOSE, THROAT: Ears normal, nares patent, oropharynx clear without exudates. Moist mucous membranes. NECK: Normal range of motion, supple without lymphadenopathy, JVD, or masses. LUNGS: Diminished bilat bases. No wheezes, and no crackles. No accessory muscle use. HEART: Regular rate and rhythm, normal S1 and S2 without murmur, rub or gallop. ABDOMEN: Soft, nontender, not distended, normoactive bowel sounds, no guarding, no rebound, no masses. No hepatomegaly or splenomegaly. MUSCULOSKELETAL: Normal range of motion at all joints. No bony deformities or tenderness. No CVA tenderness. tender on palpation right ribs UPPER EXTREMITIES: 2+ pulses, warm, well-perfused. No cyanosis. No clubbing. No peripheral edema. LOWER EXTREMITIES: 2+ pulses, warm, well-perfused. No calf tenderness. 1+ peripheral edema. NEUROLOGICAL: Cranial nerves II-XII intact. Normal speech. gait not observed PSYCHIATRIC: Cooperative. Good eye contact. Appropriate mood and affect. SKIN: Warm, dry, normal turgor, no rashes or lesions noted, normal capillary refill. Laboratory Results - last 24 hr 3 09/22/17 09/22/17 09/22/17 09/22/17 09/22/17 15:40 15:40 15:40 16:13 16:48 WBC 5.4 RBC 3.23 L Hgb 8.1 L D Hct 25.9 L D MCV 80.2 MCH 25.2 L D MCHC 31.4 L RDW 21.6 H D Plt Count 175 MPV 8.6 Absolute Neuts (auto) 4.2 Neutrophils % 77.0 Lymphocytes % 7.2 L Monocytes % 11.7 H Eosinophils % 1.8 Basophils % 2.3 H Hypochromia 1+ Platelet Estimate Adequate Anisocytosis 3+ Macrocytosis 2+ Schistocytes 1+ PT with INR 16.1 H INR 1.45 H PTT (Actin FS) 26.8 Sodium 130 L Potassium 4.8 Chloride 93 L Carbon Dioxide 27 Anion Gap 10 BUN 43 H D Creatinine 1.6 H D Creat Clearance w eGFR 30.71 Random Glucose 115 H Calcium 9.0 Total Bilirubin 1.3 H AST 28 D ALT 12 Alkaline Phosphatase 48 Troponin I < 0.03 Total Protein 6.9 Albumin 3.9 Urine Color Urine Appearance Urine pH Ur Specific [place] Urine Protein Urine Glucose (UA) Urine Ketones Urine Blood Urine Nitrite Urine Bilirubin Urine Urobilinogen Ur Leukocyte Esterase Anti-A Titer Blood Type B POSITIVE Antibody Screen Negative 3 Urine Color Yellow 09/22/17 18:01 Urine Appearance Clear 06/04/18 18: Urine pH 7.0 (4.5-8) 09/22/17 18:01 Ur Specific [place] 1.010 (1.005-1.025) 09/22/17 18:01 Urine Protein Negative (NEGATIVE) 09/22/17 18:01 Urine Glucose (UA) Negative (NEGATIVE) 09/22/17 18:01 Urine Ketones Negative (NEGATIVE) 09/22/17 18: Urine Blood Negative (NEGATIVE) 09/22/17 18: Urine Nitrite Negative (NEGATIVE) 09/22/17 18: Urine Bilirubin Negative (NEGATIVE) 09/22/17 18: Ur Leukocyte Esterase Negative (NEGATIVE) 09/22/17 18:01 ECG Atrial fibrillation vent rate 95, QTC [address]/T wave abnormality Radiology Report CT Chest IMPRESSION: No CT evidence of acute thoracic pathology due to trauma. Healed bilateral rib fractures. Stable chronic T8 and T9 vertebral body compression fractures without bony retropulsion. Moderate right-sided and small left-sided pleural effusions are seen which appear to be mildly increased in size comparison to a prior CT exam of 2017. Multichamber cardiomegaly. Small to moderate pericardial effusion which appears mildly increased in volume. There also appears to be increased concentric subcutaneous edema along the chest. Interval development of mild right basilar opacity is noted which may be on the basis of focal atelectasis versus a small infiltrate. Correlate clinically. Advanced centrilobular emphysema. Dilated main pulmonary artery consistent with pulmonary hypertension. Right-sided aortic arch. Prominent atherosclerotic calcifications are seen along the origin of the left subclavian artery. Correlation with bilateral upper extremity blood pressure measurements is suggested. A small amount of perihepatic ascites is again noted. Reported By: Brian Lopez MD 09/22/17 8231 ASSESSMENT/PLAN: 82yF with PMH HTN, HLD, CHF,CAD, nSTEMI s/p stent, AFIB, COPD, colon CA, AMANDA, hypothyroid presented to the ED with right sided rib pain after falling. rib contusion - tylenol standing - oxycodone 2.5mg PRN - incentive spirometer q1h while awake AMANDA - unclear etiology - h/o CHF with current pleural effusions so will not start IVF - renal consult - hold lisinopril pericardial and pleural effusions - cardiology consult - consider IV lasix CHF/HTN/HLD/CAD - cont home meds: ASA, lipitor, imdur, coreg - hold lisinopril due to AMANDA colon CA - colonoscopy done 04/10, polyp + adenocarcinoma, pt declined colon resection hypothyroid - cont current synthroid, check TSH DVT PPX - heparin deferred for now, reassess if LOS exceeds 48h FEN - tolerating po - BMP in am - low sodium diet as tolerated Dispo: pt currently requires further observation for management of his emergent condition. Visit type - Emergency Visit Emergency Visit: Yes ED Registration Date: 09/22/17 Care time: The patient presented to the Emergency Department on the above date and was hospitalized for further evaluation of their emergent condition. - New Patient This patient is new to me today: Yes Date on this admission: 09/22/17 - Critical Care Critical Care patient: No Hospitalist Screening - Colonoscopy Questionnaire Colonoscopy Questionnaire: Colonoscopy Questionnaire - Patient: 50 - 75 years old and never had a screening colonoscopy: No History of colon or rectal polyps, or CA: Yes History of IBD, Crohn's disease or UC: No History of abdominal radiation therapy as a child: No - Relative: 1 with colon or rectal CA, or polyps at age 60 or younger: No Colon or rectal CA diagnosed at age 45 or younger: No Multiple relatives with colon or rectal CA: No - Outcome: Screening Result: Positive Screen
[2017-09-22] MEDS: ACETAMINOPHEN 325 MG TABLET (FP) PO SCH (23:55)
[2017-09-23] MEDS: ACETAMINOPHEN 325 MG TABLET (FP) PO SCH ×4 (06:04→23:10)
[2017-09-23] MEDS: LEVOTHYROXINE NA 100 MCG TABLET (FP) PO SCH (06:05)
--- NOTE | 2017-09-23 07:57 | PN ---
Physical Exam: SUBJECTIVE: Patient seen and examined,patient resting comfortably in bed, reports shortness of breath upon exertion and denies any chest pain OBJECTIVE: patient is a 82-year-old female with a past medical history of hypertension, hyperlipidemia, systolic congestive heart failure, coronary artery disease, ND, atrial fibrillation, COPD, colon CA, chronic kidney disease , and hypothyroidism.Patient was admitted for the emergency department to observation for emergent condition. Vital Signs Period Temp Pulse Resp BP Sys/[place] Pulse Ox Last 24 Hr 97.6 F-98.1 F 80-106 16-21 91-145/49-94 91-100 GENERAL: The patient is awake, alert, and fully oriented, in no acute distress. HEAD: Normal with no signs of trauma. EYES: PERRL, extraocular movements intact, sclera anicteric, conjunctiva clear. No ptosis. ENT: Ears normal, nares patent, oropharynx clear without exudates, moist mucous membranes. NECK: + jvd, Trachea midline, full range of motion, supple. LUNGS: Breath sounds equal,crackles at bilateral bases, moderately diminished clear to apexes, no wheezes, no accessory muscle use. HEART: irregular rate and rhythm, S1, S2 without murmur, rub or gallop. ABDOMEN: Soft, nontender, nondistended, normoactive bowel sounds, no guarding, no rebound, no hepatosplenomegaly, no masses. EXTREMITIES: 2+ pulses, warm, well-perfused, right lower extremity +1 edema left lower extremity trace edema NEUROLOGICAL: Cranial nerves II through XII grossly intact. Normal speech, gait not observed. PSYCH: Normal mood, normal affect. SKIN: Warm, dry, normal turgor, no rashes or lesions noted Laboratory Results - last 24 hr CBC WBC 4.3 K/mm3 (4.0-10.8) 09/23/17 08:16 RBC 3.10 M/mm3 (3.60-5.2) L 09/23/17 08:16 Hgb 7.8 GM/dl (10.7-15.3) L 09/23/17 08:16 Hct 25.0 % (32.4-45.2) L 09/23/17 08:16 MCV 80.9 fl (80-96) 09/23/17 08:16 MCH 25.0 pg (25.7-33.7) L 09/23/17 08:16 MCHC 31.0 g/dl (32.0-36.0) L 09/23/17 08:16 RDW 22.2 % (11.6-15.6) H 09/23/17 08:16 Plt Count 136 K/MM3 (134-434) 09/23/17 08:16 MPV 8.1 fl (7.5-11.1) 09/23/17 08:16 Absolute Neuts (auto) 3.1 # 09/23/17 08:16 Neutrophils % 69.7 % (42.8-82.8) 09/23/17 08:16 Lymphocytes % 10.0 % (8-40) 09/23/17 08:16 Monocytes % 17.0 % (3.8-10.2) H 09/23/17 08:16 Eosinophils % 2.7 % (0-4.5) 09/23/17 08:16 Basophils % 0.6 % (0-2.0) 09/23/17 08:16 Hypochromia 1+ 09/22/17 15:40 Platelet Estimate Adequate 09/22/17 15:40 Anisocytosis 3+ 09/22/17 15:40 Macrocytosis 2+ 09/22/17 15:40 Schistocytes 1+ 09/22/17 15:40 CMP Sodium 133 mmol/L (136-145) L 09/23/17 08:16 Potassium 4.5 mmol/L (3.5-5.1) 09/23/17 08:16 Chloride 97 mmol/L (98-107) L 09/23/17 08:16 Carbon Dioxide 29 mmol/L (22-28) H 09/23/17 08:16 Anion Gap 7 (8-16) L 09/23/17 08:16 BUN 44 mg/dl (7-18) H 09/23/17 08:16 Creatinine 1.5 mg/dl (0.6-1.3) H 09/23/17 08:16 Creat Clearance w eGFR 30.71 (>60) 09/22/17 15:40 Random Glucose 81 mg/dl (74-106) D 09/23/17 08:16 Calcium 8.6 mg/dl (8.4-10.2) 09/23/17 08:16 Phosphorus 5.0 mg/dl (2.5-4.6) H D 09/23/17 08:16 Magnesium 2.0 mg/dL (1.8-2.4) 09/23/17 08:16 Total Bilirubin 1.3 mg/dl (0.2-1.0) H 09/22/17 15:40 AST 28 U/L (10-42) D 09/22/17 15:40 ALT 12 U/L (10-40) 09/22/17 15:40 Alkaline Phosphatase 48 U/L (32-92) 09/22/17 15:40 Troponin I < 0.03 ng/ml (0.00-0.06) 09/22/17 16:13 Total Protein 6.9 g/dl (6.4-8.3) 09/22/17 15:40 Albumin 3.9 g/dl (3.5-5.0) 09/22/17 15:40 TSH 4.22 uIU/ml (0.358-3.74) H 09/23/17 08:16 09/22/17 09/22/17 09/22/17 15:40 15:40 16:13 WBC RBC Hgb Hct MCV MCH MCHC RDW Plt Count MPV Absolute Neuts (auto) Neutrophils % Lymphocytes % Monocytes % Eosinophils % Basophils % Hypochromia Platelet Estimate Anisocytosis Macrocytosis Schistocytes PT with INR 16.1 H INR 1.45 H PTT (Actin FS) Sodium Potassium Chloride Carbon Dioxide Anion Gap BUN Creatinine Creat Clearance w eGFR Random Glucose Calcium Total Bilirubin AST ALT Alkaline Phosphatase Troponin I < 0.03 Total Protein Albumin Urine Color Urine Appearance Urine pH Ur Specific [place] Urine Protein Urine Glucose (UA) Urine Ketones Urine Blood Urine Nitrite Urine Bilirubin Urine Urobilinogen Ur Leukocyte Esterase Anti-A Titer Cancelled Blood Type Cancelled Antibody Screen Cancelled 09/22/17 09/22/17 16:48 18:01 WBC RBC Hgb Hct MCV MCH MCHC RDW Plt Count MPV Absolute Neuts (auto) Neutrophils % Lymphocytes % Monocytes % Eosinophils % Basophils % Hypochromia Platelet Estimate Anisocytosis Macrocytosis Schistocytes PT with INR INR PTT (Actin FS) Sodium Potassium Chloride Carbon Dioxide Anion Gap BUN Creatinine Creat Clearance w eGFR Random Glucose Calcium Total Bilirubin AST ALT Alkaline Phosphatase Troponin I Total Protein Albumin Urine Color Yellow Urine Appearance Clear Urine pH 7.0 Ur Specific [place] 1.010 Urine Protein Negative Urine Glucose (UA) Negative Urine Ketones Negative Urine Blood Negative Urine Nitrite Negative Urine Bilirubin Negative Urine Urobilinogen 0.2 Ur Leukocyte Esterase Negative Anti-A Titer Blood Type B POSITIVE Antibody Screen Negative Active Medications Generic Name Dose Route Start Last Admin Trade Name Freq PRN Reason Stop Dose Admin Acetaminophen 650 mg 09/22/17 23:30 09/23/17 06:04 Tylenol - PO 09/25/17 17:31 650 mg Q6H [facility] Administration Aspirin 81 mg 09/23/17 10:00 Ecotrin - PO DAILY [facility] Atorvastatin Calcium 40 mg 09/23/17 22:00 Lipitor - PO HS [facility] Carvedilol 12.5 mg 09/23/17 10:00 Coreg - PO BID [facility] Dorzolamide HCl 1 drop 09/23/17 10:00 Trusopt 2% OU DAILY [facility] Furosemide 80 mg 09/23/17 10:00 Lasix - PO DAILY [facility] Isosorbide Mononitrate 30 mg 09/23/17 10:00 Imdur - PO DAILY [facility] Latanoprost 1 drop 09/23/17 22:00 Xalatan 0.005% Eye Drops - OU HS [facility] Levothyroxine Sodium 100 mcg 09/23/17 07:00 09/23/17 06:05 Synthroid - PO 100 mcg DAILY@0700 [facility] Administration Pantoprazole Sodium 40 mg 09/23/17 10:00 Protonix - PO DAILY [facility] ECG Atrial fibrillation vent rate 95, QTC [address]/T wave abnormality Radiology Report CT Chest IMPRESSION: No CT evidence of acute thoracic pathology due to trauma. Healed bilateral rib fractures. Stable chronic T8 and T9 vertebral body compression fractures without bony retropulsion. Moderate right-sided and small left-sided pleural effusions are seen which appear to be mildly increased in size comparison to a prior CT exam of 2017. Multichamber cardiomegaly. Small to moderate pericardial effusion which appears mildly increased in volume. There also appears to be increased concentric subcutaneous edema along the chest. Interval development of mild right basilar opacity is noted which may be on the basis of focal atelectasis versus a small infiltrate. Correlate clinically. Advanced centrilobular emphysema. Dilated main pulmonary artery consistent with pulmonary hypertension. Right-sided aortic arch. Prominent atherosclerotic calcifications are seen along the origin of the left subclavian artery. Correlation with bilateral upper extremity blood pressure measurements is suggested. A small amount of perihepatic ascites is again noted. Reported By: Brian Lopez MD 09/22/17 0415 ASSESSMENT/PLAN: 1) ms rib contusion - continue tylenol standing and oxycodone 2.5mg PRN - incentive spirometer q1h while awake 2) cardiology acute on chronic systolic congestive heart failure - signs of fluid overload noted on exam, hold home dose Lasix and start Lasix 40 mg IV, strict intake and output and daily weights - Pending echo today - Appreciate the input of patient's private [facility] former hand Dr. Floyd CAD -previous coronary angiogram January 2017 resulted in triple-vessel CAD, S/P stent 2015 patient has declined transseptal mitral valve replacement. - continue imdur atrial fibriliation - continuous telemetry monitoring, patient reports she has been on eliquis in the past however eliquis was held secondary to lower GI bleeds, resulting in blood transfusions - continue coreg and asa 3) nephrology acute on chronic kidney disease - Repeat creatinine this a.m. 1.5 baseline 0.8. May be secondary to vascular congestion - repeat BMP in a.m. 4) heme/onc Colon CA - + adenocarcinoma, pt declined colon resection normocytic anemia - Likely secondary to colon CA, pending iron studies - repeat hemoglobin this am 7.8, strict monitoring, pending repeat cbc at 1400 5) endo hypothyroid - cont current synthroid, TSH elevated, pending t4 ad t3 DVT PPX - heparin deferred for now secondary to anemia , reassess if LOS exceeds 48h - scd/breann FEN - tolerating po - BMP in am - low sodium diet as tolerated Dispo: pt currently requires further observation for management of his emergent condition. Visit type - Emergency Visit Emergency Visit: Yes ED Registration Date: 09/22/17 Care time: The patient presented to the Emergency Department on the above date and was hospitalized for further evaluation of their emergent condition. - New Patient This patient is new to me today: Yes Date on this admission: 09/23/17 - Critical Care Critical Care patient: No - Discharge Referral Referred to [facility] Yes
[2017-09-23 08:57] LABS: ANION GAP 7 (8-16); BLOOD UREA NITROGEN 44 mg/dl (7-18); CALCIUM 8.6 mg/dl (8.4-10.2); CHLORIDE 97 mmol/L (98-107); CO2 29 mmol/L (22-28); CREATININE 1.5 mg/dl (0.6-1.3); GLUCOSE,RANDOM 81 mg/dl (74-106); POTASSIUM 4.5 mmol/L (3.5-5.1); SODIUM 133 mmol/L (136-145)
[2017-09-23 09:01] LABS: BASO % 0.6 % (0-2.0); EOS % 2.7 % (0-4.5); HEMOGLOBIN 7.8 GM/dl (10.7-15.3); MEAN CELL VOLUME 80.9 fl (80-96); MEAN PLT VOLUME 8.1 fl (7.5-11.1); NEUT % 69.7 % (42.8-82.8); PLATELET COUNT 136 K/MM3 (134-434); RDW 22.2 % (11.6-15.6); WHITE BLOOD COUNT 4.3 K/mm3 (4.0-10.8)
[2017-09-23] MEDS ORDERED: FUROSEMIDE 40 MG/4 ML INJECTABLE VIAL IVPUSH ONE ×2 (09:30→15:30)
[2017-09-23] MEDS: ASPIRIN COATED 81 MG TABLET.EC PO SCH (09:34)
[2017-09-23] MEDS: CARVEDILOL 12.5 MG TABLET (FP) PO SCH ×2 (09:34→21:38)
[2017-09-23] MEDS: ISOSORBIDE MONONITRATE 30 MG TAB.SR.24H (FP) PO SCH (09:34)
[2017-09-23] MEDS: PANTOPRAZOLE 40 MG TABLET (FP) PO SCH (09:34)
[2017-09-23] MEDS ORDERED: PT OWN MED DRAWER 7, Y5N ONE (09:47)
[2017-09-23] MEDS ORDERED: DORZOLAMIDE 2% HCL OPHTHALMIC SOLUTION 10 ML BOTTLE OU SCH (10:00)
[2017-09-23] MEDS ORDERED: FUROSEMIDE 40 MG TABLET (FP) PO SCH (10:00)
--- NOTE | 2017-09-23 13:17 | EKG ---
Test Reason : Blood Pressure : / mmHG Vent. Rate : 095 BPM Atrial Rate : 107 BPM P-R Int : 000 ms QRS Dur : 078 ms QT Int : 306 ms P-R-T Axes : 000 077 153 degrees QTc Int : 384 ms POOR DATA QUALITY, INTERPRETATION MAY BE ADVERSELY AFFECTED ATRIAL FIBRILLATION LOW VOLTAGE QRS NONSPECIFIC ST AND T WAVE ABNORMALITY ABNORMAL ECG Confirmed by MD ANDREA, BRITTNEY ([id number]) on 09/23/2017 1:16:32 PM Referred By: FAIZA Confirmed By:BRITTNEY MENDEZ MD
--- NOTE | 2017-09-23 13:17 | CONSULT ---
Consult Consult Specialty:: Nephrology Reason for Consultation:: AMANDA - History of Present Illness Chief Complaint: s/p fall and shortness of breath History of Present Illness: Pt is an 82 year old female with pmhx of CAD, PCI, CHF, colon cancer, COPD and anemia who presents to the ER after a fall at home. She complains of right side chest pain after the fall. She also complains of increased lower extremity edema and shortness of breath that has bee gradually getting worse. She complains of swelling in her left breast as well. She denies chest pain at the moment. She denies history of CKD. She denies dysuria or hematuria. She is awake and alert. - History Source History Provided By: Patient, Medical Record - Past Medical History Cardio/Vascular: Yes: AFIB, CAD, HTN, Hyperlipdemia Psych: Yes: Anxiety - Past Surgical History Past Surgical History: Yes: Stent (coronary) - Alcohol/Substance Use Hx Alcohol Use: Yes (occasional) - Smoking History Smoking history: Former smoker Have you smoked in the past 12 months: No Aproximately how many cigarettes per day: 40 If you are a former smoker, when did you quit?: 23 YEARS AGO Home Medications - Allergies Allergies/Adverse Reactions: Allergies Allergy/AdvReac Type Severity Reaction Status Date / Time cephalexin [Cephalexin] Allergy Intermediate Rash Verified 09/22/17 15:16 clindamycin Allergy Intermediate Rash Verified 09/22/17 15:16 naproxen [From Naprosyn] Allergy Intermediate ANKLES Verified 09/22/17 15:16 SWELLED UP Penicillins Allergy Intermediate Rash Verified 09/22/17 15:16 diphenhydramine HCl AdvReac CAN'T Verified 09/22/17 15:16 [From Benadryl] HAVE,HAS GLAUCOMA - Home Medications Home Medications: Ambulatory Orders Levothyroxine [Synthroid -] 100 mcg PO DAILY 03/19/15 Dorzolamide HCl [Trusopt] 1 drop OU DAILY 10/15/15 Atorvastatin Ca [Lipitor] 40 mg PO HS 10/11/16 Lisinopril 5 mg PO DAILY 10/11/16 Carvedilol [Coreg -] 12.5 mg PO BID #60 tablet 10/12/16 Isosorbide Mononitrate [Isosorbide Mononitrate ER] 30 mg PO DAILY 04/07/17 Latanoprost 0.005% Eye Drops [Xalatan 0.005% Eye Drops -] 1 drop OU HS 04/07/17 Pantoprazole Sodium [Protonix] 40 mg PO DAILY 04/07/17 Aspirin [Ecotrin] 81 mg PO DAILY 09/22/17 Furosemide [Lasix] 80 mg PO DAILY 09/22/17 Family Disease History - Family Disease History Family History: Denies Review of Systems - Review of Systems Constitutional: reports: Malaise Eyes: reports: No Symptoms HENT: reports: No Symptoms Neck: reports: No Symptoms Cardiovascular: reports: Chest Pain, Edema, Shortness of Breath Respiratory: reports: SOB on Exertion Gastrointestinal: reports: No Symptoms Genitourinary: reports: No Symptoms Musculoskeletal: reports: Other (right side chest pain after fall) Integumentary: reports: No Symptoms Neurological: reports: No Symptoms Endocrine: reports: No Symptoms Hematology/Lymphatic: reports: No Symptoms Psychiatric: reports: No Symptoms Physical Exam Vital Signs: Vital Signs Temperature 98.1 F 09/23/17 06:27 Pulse Rate 104 H 09/23/17 08:57 Respiratory Rate 16 09/23/17 08:57 Blood Pressure 107/61 09/23/17 08:57 O2 Sat by Pulse Oximetry (%) 92 L 09/23/17 08:57 Constitutional: Yes: Calm Eyes: Yes: Conjunctiva Clear HENT: Yes: Atraumatic Neck: Yes: Supple Cardiovascular: Yes: S1, S2 Respiratory: Yes: On Nasal O2, Rhonchi Gastrointestinal: Yes: Soft Breast(s): Yes: Other (left breast swelling) Musculoskeletal: Yes: WNL Edema: Yes Edema: LLE: 1+, RLE: 1+ Neurological: Yes: Oriented Psychiatric: Yes: Oriented Labs: CBC, BMP 09/23/17 08:16 09/23/17 08:16 Laboratory Tests 02/03/17 04/14/17 04/15/17 07:38 06:37 06:40 WBC Hgb Sodium Potassium BUN Creatinine 1.1 D 1.0 0.8 B-Natriuretic Peptide 04/17/17 04/20/17 09/22/17 05:05 05:05 15:40 WBC Hgb Sodium Potassium BUN Creatinine 0.8 1.0 D 1.6 H D B-Natriuretic Peptide 09/23/17 09/23/17 09/23/17 08:16 08:16 13:30 WBC 4.1 Hgb 7.8 L 7.8 L Sodium 133 L Potassium 4.5 BUN 44 H Creatinine 1.5 H B-Natriuretic Peptide 09/23/17 13:30 WBC Hgb Sodium Potassium BUN Creatinine B-Natriuretic Peptide 7577.93 H Imaging - Results Cat Scan: Report Reviewed Problem List - Problems (1) AMANDA (acute kidney injury) Code(s): N17.9 - ACUTE KIDNEY FAILURE, UNSPECIFIED Assessment/Plan Current Medications Generic Name Dose Route Start Last Admin Trade Name Freq PRN Reason Stop Dose Admin Acetaminophen 650 mg 09/22/17 23:30 09/23/17 11:36 Tylenol - PO 09/25/17 17:31 650 mg Q6H LUKE Administration Aspirin 81 mg 09/23/17 10:00 09/23/17 09:34 Ecotrin - PO 81 mg DAILY LUKE Administration Atorvastatin Calcium 40 mg 09/23/17 22:00 Lipitor - PO HS [facility] Carvedilol 12.5 mg 09/23/17 10:00 09/23/17 09:34 Coreg - PO 12.5 mg BID LUKE Administration Dorzolamide HCl 1 drop 09/23/17 10:00 09/23/17 09:37 Trusopt 2% OU 1 drop DAILY LUKE Administration Furosemide 80 mg 09/23/17 10:00 09/23/17 09:41 Lasix - PO Not Given DAILY LUKE Isosorbide Mononitrate 30 mg 09/23/17 10:00 09/23/17 09:34 Imdur - PO 30 mg DAILY LUKE Administration Latanoprost 1 drop 09/23/17 22:00 Xalatan 0.005% Eye Drops - OU HS LUKE Levothyroxine Sodium 100 mcg 09/23/17 07:00 09/23/17 06:05 Synthroid - PO 100 mcg DAILY@0700 LUKE Administration Pantoprazole Sodium 40 mg 09/23/17 10:00 09/23/17 09:34 Protonix - PO 40 mg DAILY LUKE Administration Impression 1. AMANDA 2. CHF 3. s/p fall 4. a-fib 5. CAD 6. hypothyroidism 7. colon cancer 8. copd Plan - check renal ultrasound - check ua and lytes - cont lasix - repeat labs in am - check cpk level - anemia management per primary team - avoid nsaids Dr Tabares
--- NOTE | 2017-09-23 13:37 | CON.CARD ---
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 She has been feeling short of breath for days, with bilateral leg swelling. Her left breast has also been swollen and tender. - History Source History Provided By: Patient, Family Member, Medical Record Limitations to Obtaining History: No Limitations - Past Medical History Cardio/Vascular: Yes: AFIB, CAD, CHF, HTN, Hyperlipdemia, Mitral Insufficiency, Pulmonary Hypertension Pulmonary: Yes: COPD Gastrointestinal: Yes: Cancer (colon) Renal/: Yes: Renal Inusuff Reproductive: Yes: Postmenopausal ...: No Heme/Onc: Yes: Anemia, Cancer Psych: Yes: Anxiety - Past Surgical History Past Surgical History: Yes: Stent (coronary) - Alcohol/Substance Use Hx Alcohol Use: Yes (occasional) - Smoking History Smoking history: Former smoker Have you smoked in the past 12 months: No Aproximately how many cigarettes per day: 40 If you are a former smoker, when did you quit?: 23 YEARS AGO - Social History Usual Living Arrangement: Other (with sister) Place of : [facility] Home Medications - Allergies Allergies/Adverse Reactions: Allergies Allergy/AdvReac Type Severity Reaction Status Date / Time cephalexin [Cephalexin] Allergy Intermediate Rash Verified 09/22/17 15:16 clindamycin Allergy Intermediate Rash Verified 09/22/17 15:16 naproxen [From Naprosyn] Allergy Intermediate ANKLES Verified 09/22/17 15:16 SWELLED UP Penicillins Allergy Intermediate Rash Verified 09/22/17 15:16 diphenhydramine HCl AdvReac CAN'T Verified 09/22/17 15:16 [From Benadlatoya] HAVE,HAS GLAUCOMA - Home Medications Home Medications: Ambulatory Orders Levothyroxine [Synthroid -] 100 mcg PO DAILY 03/19/15 Dorzolamide HCl [Trusopt] 1 drop OU DAILY 10/15/15 Atorvastatin Ca [Lipitor] 40 mg PO HS 10/11/16 Lisinopril 5 mg PO DAILY 10/11/16 Carvedilol [Coreg -] 12.5 mg PO BID #60 tablet 10/12/16 Isosorbide Mononitrate [Isosorbide Mononitrate ER] 30 mg PO DAILY 04/07/17 Latanoprost 0.005% Eye Drops [Xalatan 0.005% Eye Drops -] 1 drop OU HS 04/07/17 Pantoprazole Sodium [Protonix] 40 mg PO DAILY 04/07/17 Aspirin [Ecotrin] 81 mg PO DAILY 09/22/17 Furosemide [Lasix] 80 mg PO DAILY 09/22/17 Family Disease History - Family Disease History Family History: Denies Review of Systems - Review of Systems Constitutional: reports: Weakness Eyes: reports: No Symptoms HENT: reports: No Symptoms Neck: reports: No Symptoms Cardiovascular: reports: Palpitations, Shortness of Breath Respiratory: reports: SOB Breasts: reports: Pain, Other (right breast swelling, redness, pain recently) Neurological: reports: Weakness Psychiatric: reports: Anxiety - Risk Factors Known Risk Factors: Yes: Age, Hypercholesterolemia, Hypertension, Physical Inactivity, Smoking (former), Other (CHF; CAD; AF) Vital Signs: Vital Signs Temperature 98.1 F 09/23/17 06:27 Pulse Rate 104 H 09/23/17 08:57 Respiratory Rate 16 09/23/17 08:57 Blood Pressure 107/61 09/23/17 08:57 O2 Sat by Pulse Oximetry (%) 92 L 09/23/17 08:57 Constitutional: Yes: Anxious Eyes: Yes: WNL HENT: Yes: WNL Neck: Yes: Other Respiratory: Yes: Diminished, Rales Gastrointestinal: Yes: Soft Renal/: No: Anuria JVD: Yes Carotid Bruit: Yes PMI: Displaced Heart Sounds: Yes: S1 (varies in intensity), Split S2 Murmur: Yes: Systolic Murmur, Grade 3 Musculoskeletal: Yes: Joint Stiffness, Muscle Weakness Extremities: Yes: Cool Edema: Yes Edema: LLE: 2+, RLE: 2+ Peripheral Pulses WNL: No Peripheral Pulses: 1+ Left Doralis Pedis, 1+ Right Dorsalis Pedis Integumentary: Yes: Erythema (left breast) Neurological: Yes: Alert, Oriented, Weakness Psychiatric: Yes: Other - Other Data Labs, Other Data: CBC, BMP 09/23/17 08:16 09/23/17 08:16 INR, PTT INR 1.45 (0.82-1.09) H 09/22/17 15:40 Troponin, BNP 09/22/17 16:13 Troponin I < 0.03 Troponin, BNP 09/22/17 16:13 Troponin I < 0.03 Abnormal Lab Results 09/22/17 09/22/17 09/22/17 15:40 15:40 15:40 RBC 3.23 L Hgb 8.1 L D Hct 25.9 L D MCV MCH 25.2 L D MCHC 31.4 L RDW 21.6 H D Lymphocytes % 7.2 L Monocytes % 11.7 H Basophils % 2.3 H PT with INR 16.1 H INR 1.45 H Sodium 130 L Chloride 93 L Carbon Dioxide Anion Gap BUN 43 H D Creatinine 1.6 H D Random Glucose 115 H Phosphorus Total Bilirubin 1.3 H TSH 09/23/17 09/23/17 09/23/17 08:16 08:16 08:16 RBC 3.10 L Hgb 7.8 L Hct 25.0 L MCV MCH 25.0 L MCHC 31.0 L RDW 22.2 H Lymphocytes % Monocytes % 17.0 H Basophils % PT with INR INR Sodium 133 L Chloride 97 L Carbon Dioxide 29 H Anion Gap 7 L BUN 44 H Creatinine 1.5 H Random Glucose Phosphorus 5.0 H D Total Bilirubin TSH 4.22 H 09/23/17 13:30 RBC 3.04 L Hgb 7.8 L Hct 24.2 L MCV 79.6 L MCH 25.5 L MCHC RDW 22.0 H Lymphocytes % Monocytes % Basophils % PT with INR INR Sodium Chloride Carbon Dioxide Anion Gap BUN Creatinine Random Glucose Phosphorus Total Bilirubin TSH Echo: Pending Prior Cardiac Procedures: Cardiac Catheterization, PTCA with Stent Imaging - Results Cat Scan: Image Reviewed (mild bibasilar pleural effusion Mild pericardial effusion COPD) EKG: Image Reviewed (AF) Problem List - Problems (1) Acute on chronic systolic and diastolic heart failure, NYHA class 3 Assessment/Plan: Continue carvedilol bid Continue lisinopril if cleared by team leader. CT chest: CHF, pleural and pericardial effusion. BNP pending. TNI < 0.02 TSH mildly elevated; f/u T3 and T4. Change furosemide to IV; bid if needed. F/u BUN/Cr, electrolytes, Is and Os, daily weight. Fecommend transfer to telemetry or ICU (periods of hypotension; short of breath on minimal exertion; acute CHF, exacerbation of COPD; anemia; AF; renal dysfunction--no urine after IV Lasix. Code(s): I50.43 - ACUTE ON CHRONIC COMBINED SYSTOLIC AND DIASTOLIC HRT FAIL (2) Contusion of rib on right side Code(s): S20.211A - CONTUSION OF RIGHT FRONT WALL OF THORAX, INITIAL ENCOUNTER (3) ASHD (arteriosclerotic heart disease) Code(s): I25.10 - ATHSCL HEART DISEASE OF [place] CORONARY ARTERY W/O ANG PCTRS (4) Atrial fibrillation Assessment/Plan: on carvedilol for HR control and systolic CHF. Pt was on apixaban for anticoagulation; it was apparently stopped when she had ? GI bleed requiring PRBCs two months ago at [facility]. Recommend obtaining records from [facility] (per family, upper endoscopy was done while at [facility], but not colonoscopy). Hematology and GI f/u;f/u HB; stood quaiac. Pt is on ASA for CAD. Start apixaban as soon as possible (pt's sister, Hanane, and daughter, Katina tell me today that MD at [facility] spoke in detail with pt and family prior to discharge after recent admission for GI bleed; reportedly stated that she could be restarted on apixaban, but it was up to Karli to decide. Pt refused, saying she did not want to have a stroke; family members believe pt did not fully understand the benefits vs risks of apixaban; pt now says she will agree with restarting apixaban). Code(s): I48.91 - UNSPECIFIED ATRIAL FIBRILLATION Qualifiers: Atrial fibrillation type: unspecified Qualified Code(s): I48.91 - Unspecified atrial fibrillation (5) COPD (chronic obstructive pulmonary disease) Assessment/Plan: f/u with firearms model maker. Code(s): J44.9 - CHRONIC OBSTRUCTIVE PULMONARY DISEASE, UNSPECIFIED (6) Colon cancer Assessment/Plan: f/u with oncologist; now with left breast pain/swelling/?mass. Code(s): C18.9 - MALIGNANT NEOPLASM OF COLON, UNSPECIFIED (7) GI bleed Assessment/Plan: F/u records from [facility] regarding admission there two months ago that required ? 4U PRBCs; colonoscopy was apparently unable to be completed. Code(s): K92.2 - GASTROINTESTINAL HEMORRHAGE, UNSPECIFIED Qualifiers: GI bleed type/associated pathology: unspecified gastrointestinal hemorrhage type Qualified Code(s): K92.2 - Gastrointestinal hemorrhage, unspecified (8) Moderate to severe pulmonary hypertension Code(s): I27.2 - OTHER SECONDARY PULMONARY HYPERTENSION * DO NOT USE * (9) Severe mitral regurgitation Assessment/Plan: Pt refused surgical evaluation of mitral repair/replacement. Code(s): I34.0 - NONRHEUMATIC MITRAL (VALVE) INSUFFICIENCY (10) Breast pain in female Assessment/Plan: left breast pain, swelling, redness noted by pt for the past few weeks; she had scheduled an appointment for mammography. Hx colon CA. Code(s): N64.4 - MASTODYNIA (11) Pericardial effusion Assessment/Plan: mild-moderate pericardial effusion noted on CT chest. F/u ECHO today. Code(s): I31.3 - PERICARDIAL EFFUSION (NONINFLAMMATORY) (12) Anemia Code(s): D64.9 - ANEMIA, UNSPECIFIED Qualifiers: Anemia type: unspecified type Qualified Code(s): D64.9 - Anemia, unspecified
[2017-09-23 14:05] LABS: HEMATOCRIT 24.2 % (32.4-45.2); HEMOGLOBIN 7.8 GM/dl (10.7-15.3); MCH 25.5 pg (25.7-33.7); MCHC 32.1 g/dl (32.0-36.0); MEAN CELL VOLUME 79.6 fl (80-96); MEAN PLT VOLUME 7.8 fl (7.5-11.1); PLATELET COUNT 146 K/MM3 (134-434); RBC 3.04 M/mm3 (3.60-5.2); WHITE BLOOD COUNT 4.1 K/mm3 (4.0-10.8)
[2017-09-23 14:10] LABS: ADD RBC MORPHOLOGY YES
[2017-09-23 15:03] LABS: ANISOCYTOSIS 2+; PLATELET ESTIMATE ADEQUATE
--- NOTE | 2017-09-23 20:44 | HOSP ---
Subjective - Review of Symptoms Events since last encounter: Pt transferred to [facility] for management of her condition. Subjective: Pt reports continued right rib pain, but states it may be a "little" better. Reports her breathing is a "little" better as well. Physical Examination Vital Signs: Vital Signs Temperature 97.6 F 09/23/17 20:13 Pulse Rate 88 09/23/17 20:13 Respiratory Rate 18 09/23/17 20:13 Blood Pressure 100/60 09/23/17 20:13 O2 Sat by Pulse Oximetry (%) 96 09/23/17 20:13 Constitutional: Yes: No Distress, Calm Cardiovascular: Yes: Pulse Irregular, S1, S2 Respiratory: Yes: Other (Improved air entry c/w last night. Still diminished at bases) Gastrointestinal: Yes: Normal Bowel Sounds, Soft. No: Tenderness, Rebound Labs: CBC, BMP 09/23/17 13:30 09/23/17 08:16 Hospitalist Encounter Assessment: CHF exac - cont lasix 40mg IV BID - cardiology consult appreciated anemia - will defer PRBC at this time as pt not overtly symptomatic, trend Hgb rib contusion - cont tylenol standing and oxycodone 2.5mg prn AMANDA - cont nephrology consult
[2017-09-23] MEDS ORDERED: LATANOPROST 0.005% OPHTH SOLN 2.5ML BOTTLE OU SCH (22:00)
[2017-09-23] MEDS ORDERED: ATORVASTATIN CA 40 MG TABLET (FP) PO SCH (22:00)
[2017-09-24] MEDS: ACETAMINOPHEN 325 MG TABLET (FP) PO SCH ×3 (05:33→18:03)
[2017-09-24] MEDS: FUROSEMIDE 40 MG/4 ML INJECTABLE VIAL IVPUSH SCH ×2 (06:34→15:01)
[2017-09-24] MEDS: LEVOTHYROXINE NA 100 MCG TABLET (FP) PO SCH (06:35)
[2017-09-24 07:02] LABS: ALBUMIN 3.2 g/dl (3.4-5.0); ALK PHOS 48 U/L (45-117); BILIRUBIN,TOTAL 0.9 mg/dL (0.2-1.0); SGOT/AST 14 U/L (15-37); SGPT/ALT 15 U/L (12-78); TOT PROT 6.3 g/dl (6.4-8.2)
[2017-09-24 08:18] LABS: BASO % 1.6 % (0-2.0); EOS % 3.8 % (0-4.5); HEMATOCRIT 22.1 % (32.4-45.2); HEMOGLOBIN 7.1 GM/dL (10.7-15.3); MCH 26.2 pg (25.7-33.7); MCHC 31.8 g/dl (32.0-36.0); MEAN CELL VOLUME 82.4 fl (80-96); MEAN PLT VOLUME 7.8 fl (7.5-11.1); MONO % 16.4 % (3.8-10.2); NEUT % 66.2 % (42.8-82.8); PLATELET COUNT 113 K/MM3 (134-434); RBC 2.69 M/mm3 (3.60-5.2); WHITE BLOOD COUNT 3.9 K/mm3 (4.0-10.0)
[2017-09-24] MEDS ORDERED: PT OWN MED DRAWER 7, Y5N ONE (09:23)
[2017-09-24] MEDS: PANTOPRAZOLE 40 MG TABLET (FP) PO SCH (09:29)
[2017-09-24] MEDS: ISOSORBIDE MONONITRATE 30 MG TAB.SR.24H (FP) PO SCH (09:29)
[2017-09-24] MEDS: ASPIRIN COATED 81 MG TABLET.EC PO SCH (09:30)
[2017-09-24] MEDS: CARVEDILOL 12.5 MG TABLET (FP) PO SCH ×2 (10:01→21:31)
[2017-09-24 10:18] LABS: SERUM IRON SATURATION 5 % (15-55); TOTAL IRON BINDING CAPACITY 416 ug/dL (250-450); UIBC 396 ug/dL (118-369)
[2017-09-24 10:25] LABS: URINE APPEARANCE CLEAR; URINE BILIRUBIN NEGATIVE (<2.0 mg/dL); URINE BLOOD NEGATIVE (NEGATIVE); URINE COLOR STRAW; URINE GLUCOSE (UA) NEGATIVE (NEGATIVE); URINE KETONE NEGATIVE (NEGATIVE); URINE LEUK ESTERASE NEGATIVE (NEGATIVE); URINE NITRITE NEGATIVE (NEGATIVE); URINE PROTEIN NEGATIVE (NEGATIVE); URINE UROBILINOGEN NEGATIVE mg/dL (0.2-1.0)
--- NOTE | 2017-09-24 10:54 | PN ---
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 She has been feeling short of breath for days, with bilateral leg swelling. Her left breast has also been swollen and tender. - Current Medication List Current Medications: Active Medications Acetaminophen (Tylenol -) 650 mg PO Q6H [facility] Stop: 09/25/17 17:31 Last Admin: 09/24/17 05:33 Dose: 650 mg Aspirin (Ecotrin -) 81 mg PO DAILY [facility] Last Admin: 09/24/17 09:30 Dose: 81 mg Atorvastatin Calcium (Lipitor -) 40 mg PO HS [facility] Last Admin: 09/23/17 21:39 Dose: 40 mg Carvedilol (Coreg -) 12.5 mg PO BID [facility] Last Admin: 09/23/17 21:38 Dose: 12.5 mg Dorzolamide HCl (Trusopt 2%) 1 drop OU DAILY [facility] Last Admin: 09/23/17 09:37 Dose: 1 drop Furosemide (Lasix Injection -) 40 mg IVPUSH BID@0600,1400 [facility] Last Admin: 09/24/17 06:34 Dose: 40 mg Isosorbide Mononitrate (Imdur -) 30 mg PO DAILY [facility] Last Admin: 09/24/17 09:29 Dose: 30 mg Latanoprost (Xalatan 0.005% Eye Drops -) 1 drop OU HS [facility] Last Admin: 09/23/17 22:01 Dose: 1 drop Levothyroxine Sodium (Synthroid -) 100 mcg PO DAILY@0700 [facility] Last Admin: 09/24/17 06:35 Dose: 100 mcg Pantoprazole Sodium (Protonix -) 40 mg PO DAILY [facility] Last Admin: 09/24/17 09:29 Dose: 40 mg - Objective Vital Signs: Vital Signs Temperature 98.3 F 09/24/17 06:00 Pulse Rate 90 09/24/17 06:00 Respiratory Rate 20 09/24/17 06:00 Blood Pressure 100/68 09/24/17 06:00 O2 Sat by Pulse Oximetry (%) 95 09/24/17 06:00 Eyes: Yes: WNL, Conjunctiva Clear, EOM Intact HENT: Yes: WNL, Atraumatic, Normocephalic Neck: Yes: WNL, Supple, Trachea Midline Cardiovascular: Yes: Pulse Irregular, S1, S2 Respiratory: Yes: WNL, Regular, CTA Bilaterally Gastrointestinal: Yes: WNL, Normal Bowel Sounds Genitourinary: Yes: WNL Musculoskeletal: Yes: WNL Extremities: Yes: WNL Edema: No Integumentary: Yes: WNL Neurological: Yes: WNL, Alert, Oriented ...Motor Strength: WNL Psychiatric: Yes: WNL Labs: CBC, BMP 09/24/17 06:00 INR, PTT INR 1.45 (0.82-1.09) H 09/22/17 15:40 Assessment/Plan - Problems (1) Acute on chronic systolic and diastolic heart failure, NYHA class 3 Assessment/Plan: Continue carvedilol bid Continue lisinopril if cleared by seasonal greenery bundler. CT chest: CHF, pleural and pericardial effusion. BNP pending. TNI < 0.02 TSH mildly elevated; f/u T3 and T4. Change furosemide to IV; bid if needed. F/u BUN/Cr, electrolytes, Is and Os, daily weight. Fecommend transfer to telemetry or ICU (periods of hypotension; short of breath on minimal exertion; acute CHF, exacerbation of COPD; anemia; AF; renal dysfunction--no urine after IV Lasix. Code(s): I50.43 - ACUTE ON CHRONIC COMBINED SYSTOLIC AND DIASTOLIC HRT FAIL (2) Contusion of rib on right side Code(s): S20.211A - CONTUSION OF RIGHT FRONT WALL OF THORAX, INITIAL ENCOUNTER (3) ASHD (arteriosclerotic heart disease) Code(s): I25.10 - ATHSCL HEART DISEASE OF [place] CORONARY ARTERY W/O ANG PCTRS (4) Atrial fibrillation Assessment/Plan: on carvedilol for HR control and systolic CHF. Pt was on apixaban for anticoagulation; it was apparently stopped when she had ? GI bleed requiring PRBCs two months ago at [facility]. Recommend obtaining records from [facility] (per family, upper endoscopy was done while at [facility], but not colonoscopy). Hematology and GI f/u;f/u HB; stood quaiac. Pt is on ASA for CAD. Start apixaban as soon as possible (pt's sister, Hanane, and daughter, Katina tell me today that MD at [facility] spoke in detail with pt and family prior to discharge after recent admission for GI bleed; reportedly stated that she could be restarted on apixaban, but it was up to Karli to decide. Pt refused, saying she did not want to have a stroke; family members believe pt did not fully understand the benefits vs risks of apixaban; pt now says she will agree with restarting apixaban). Code(s): I48.91 - UNSPECIFIED ATRIAL FIBRILLATION Qualifiers: Atrial fibrillation type: unspecified Qualified Code(s): I48.91 - Unspecified atrial fibrillation (5) COPD (chronic obstructive pulmonary disease) Assessment/Plan: f/u with advanced manufacturing associate. Code(s): J44.9 - CHRONIC OBSTRUCTIVE PULMONARY DISEASE, UNSPECIFIED (6) Colon cancer Assessment/Plan: f/u with oncologist; now with left breast pain/swelling/?mass. Code(s): C18.9 - MALIGNANT NEOPLASM OF COLON, UNSPECIFIED (7) GI bleed Assessment/Plan: F/u records from [facility] regarding admission there two months ago that required ? 4U PRBCs; colonoscopy was apparently unable to be completed. Code(s): K92.2 - GASTROINTESTINAL HEMORRHAGE, UNSPECIFIED Qualifiers: GI bleed type/associated pathology: unspecified gastrointestinal hemorrhage type Qualified Code(s): K92.2 - Gastrointestinal hemorrhage, unspecified (8) Moderate to severe pulmonary hypertension Code(s): I27.2 - OTHER SECONDARY PULMONARY HYPERTENSION * DO NOT USE * (9) Severe mitral regurgitation Assessment/Plan: Pt refused surgical evaluation of mitral repair/replacement. Code(s): I34.0 - NONRHEUMATIC MITRAL (VALVE) INSUFFICIENCY (10) Breast pain in female Assessment/Plan: left breast pain, swelling, redness noted by pt for the past few weeks; she had scheduled an appointment for mammography. Hx colon CA. Code(s): N64.4 - MASTODYNIA (11) Pericardial effusion Assessment/Plan: mild-moderate pericardial effusion noted on CT chest. F/u ECHO today. Code(s): I31.3 - PERICARDIAL EFFUSION (NONINFLAMMATORY) (12) Anemia Code(s): D64.9 - ANEMIA, UNSPECIFIED Qualifiers: Anemia type: unspecified type Qualified Code(s): D64.9 - Anemia, unspecified
--- NOTE | 2017-09-24 12:00 | PN ---
Progress Note, Physician History of Present Illness: Pt seen and examined at bedside. She is awake and appears comfortable. He is currently getting a prbc transfusion. - Current Medication List Current Medications: Active Medications Acetaminophen (Tylenol -) 650 mg PO Q6H [facility] Stop: 09/25/17 17:31 Last Admin: 09/24/17 05:33 Dose: 650 mg Aspirin (Ecotrin -) 81 mg PO DAILY [facility] Last Admin: 09/24/17 09:30 Dose: 81 mg Atorvastatin Calcium (Lipitor -) 40 mg PO HS [facility] Last Admin: 09/23/17 21:39 Dose: 40 mg Carvedilol (Coreg -) 12.5 mg PO BID [facility] Last Admin: 09/23/17 21:38 Dose: 12.5 mg Dorzolamide HCl (Trusopt 2%) 1 drop OU DAILY [facility] Last Admin: 09/23/17 09:37 Dose: 1 drop Furosemide (Lasix Injection -) 40 mg IVPUSH BID@0600,1400 [facility] Last Admin: 09/24/17 06:34 Dose: 40 mg Isosorbide Mononitrate (Imdur -) 30 mg PO DAILY [facility] Last Admin: 09/24/17 09:29 Dose: 30 mg Latanoprost (Xalatan 0.005% Eye Drops -) 1 drop OU HS [facility] Last Admin: 09/23/17 22:01 Dose: 1 drop Levothyroxine Sodium (Synthroid -) 100 mcg PO DAILY@0700 [facility] Last Admin: 09/24/17 06:35 Dose: 100 mcg Pantoprazole Sodium (Protonix -) 40 mg PO DAILY [facility] Last Admin: 09/24/17 09:29 Dose: 40 mg - Objective Vital Signs: Vital Signs Temperature 98.1 F 09/24/17 09:00 Pulse Rate 76 09/24/17 09:00 Respiratory Rate 20 09/24/17 09:00 Blood Pressure 111/51 09/24/17 09:00 O2 Sat by Pulse Oximetry (%) 95 09/24/17 09:00 Constitutional: Yes: Calm Eyes: Yes: Conjunctiva Clear HENT: Yes: Atraumatic Cardiovascular: Yes: S1, S2 Respiratory: Yes: On Nasal O2 Gastrointestinal: Yes: Soft Genitourinary: Yes: WNL Musculoskeletal: Yes: WNL Edema: LLE: Trace, RLE: Trace Neurological: Yes: Oriented Psychiatric: Yes: Oriented Labs: CBC, BMP 09/24/17 06:00 INR, PTT INR 1.45 (0.82-1.09) H 09/22/17 15:40 Problem List - Problems (1) AMANDA (acute kidney injury) Code(s): N17.9 - ACUTE KIDNEY FAILURE, UNSPECIFIED Assessment/Plan Current Medications Generic Name Dose Route Start Last Admin Trade Name Freq PRN Reason Stop Dose Admin Acetaminophen 650 mg 09/22/17 23:30 09/24/17 05:33 Tylenol - PO 09/25/17 17:31 650 mg Q6H [facility] Administration Aspirin 81 mg 09/23/17 10:00 09/24/17 09:30 Ecotrin - PO 81 mg DAILY [facility] Administration Atorvastatin Calcium 40 mg 09/23/17 22:00 09/23/17 21:39 Lipitor - PO 40 mg HS [facility]KE Administration Carvedilol 12.5 mg 09/23/17 10:00 09/23/17 21:38 Coreg - PO 12.5 mg BID [facility]KE Administration Dorzolamide HCl 1 drop 09/23/17 10:00 09/23/17 09:37 Trusopt 2% OU 1 drop DAILY [facility] Administration Furosemide 40 mg 09/24/17 06:00 09/24/17 06:34 Lasix Injection - IVPUSH 40 mg BID@0600,1400 [facility]KE Administration Isosorbide Mononitrate 30 mg 09/23/17 10:00 09/24/17 09:29 Imdur - PO 30 mg DAILY [facility] Administration Latanoprost 1 drop 09/23/17 22:00 09/23/17 22:01 Xalatan 0.005% Eye Drops - OU 1 drop HS [facility] Administration Levothyroxine Sodium 100 mcg 09/23/17 07:00 09/24/17 06:35 Synthroid - PO 100 mcg DAILY@0700 [facility] Administration Pantoprazole Sodium 40 mg 09/23/17 10:00 09/24/17 09:29 Protonix - PO 40 mg DAILY [facility] Administration Laboratory Tests 09/24/17 09/24/17 06:00 06:50 BUN Pending Creatinine Pending Creatine Kinase 82 Impression 1. AMANDA 2. CHF 3. s/p fall 4. a-fib 5. CAD 6. hypothyroidism 7. colon cancer 8. copd Plan - follow labs to evaluate renal function - cont lasix - prbc trasnfusion - pt to start a/c - follow renal ultrasound - avoid nsaids Dr Tabares
--- NOTE | 2017-09-24 12:44 | CON.GI ---
Consult Consult Specialty:: GI Reason for Consultation:: Anemia - History of Present Illness History of Present Illness: chart reviewed. Events noted. Admission in March 2017 reviewed as well. As per initial intake: This is an 82 year old female with a significant past medical history of HTN, HLD, afib, CHF, ID who presented to the ED s/p fall with rib pain. Pt states she lost her balance while opening a can of tangerines and fell, landing on the radiator. c/o right side/rib pain since. ER course was notable for: (1) CT chest without fracture, bilat pl effusions and pericardial effusion present (2) Sodium 130 (3)BUN 43/Cr 1.6 GI was called for evaluation of anemia. Her hemoglobin has been covering between 9 and 7 g/dl since at least March 2017. In March 2017 patient had EGD, which showed no significant pathology. She also had colonoscopy, which showed diverticulosis and possibly ischemic changes in the right colon. A polyp was found and removed as well. The patient is not on small dose aspirin. Denies having melena, hematochezia, hematemesis, dysphagia, odynophagia, GERD-like symptoms, epigastric, or generalized abdominal pain. Denies having low-grade fever, chills, jaundice. - History Source History Provided By: Patient, Medical Record - Past Medical History Cardio/Vascular: Yes: AFIB, CAD, HTN, Hyperlipdemia Pulmonary: Yes: COPD Gastrointestinal: Yes: Cancer (colon) Renal/: Yes: Renal Inusuff ...: No Psych: Yes: Anxiety - Past Surgical History Past Surgical History: Yes: Stent (coronary) - Alcohol/Substance Use Hx Alcohol Use: Yes (occasional) - Smoking History Smoking history: Former smoker Have you smoked in the past 12 months: No Aproximately how many cigarettes per day: 40 If you are a former smoker, when did you quit?: 23 YEARS AGO - Social History Usual Living Arrangement: Other (with sister) Home Medications - Allergies Allergies/Adverse Reactions: Allergies Allergy/AdvReac Type Severity Reaction Status Date / Time cephalexin [Cephalexin] Allergy Intermediate Rash Verified 09/22/17 15:16 clindamycin Allergy Intermediate Rash Verified 09/22/17 15:16 naproxen [From Naprosyn] Allergy Intermediate ANKLES Verified 09/22/17 15:16 SWELLED UP Penicillins Allergy Intermediate Rash Verified 09/22/17 15:16 diphenhydramine HCl AdvReac CAN'T Verified 09/22/17 15:16 [From Benadryl] HAVE,HAS GLAUCOMA - Home Medications Home Medications: Ambulatory Orders Levothyroxine [Synthroid -] 100 mcg PO DAILY 03/19/15 Dorzolamide HCl [Trusopt] 1 drop OU DAILY 10/15/15 Atorvastatin Ca [Lipitor] 40 mg PO HS 10/11/16 Lisinopril 5 mg PO DAILY 10/11/16 Carvedilol [Coreg -] 12.5 mg PO BID #60 tablet 10/12/16 Isosorbide Mononitrate [Isosorbide Mononitrate ER] 30 mg PO DAILY 04/07/17 Latanoprost 0.005% Eye Drops [Xalatan 0.005% Eye Drops -] 1 drop OU HS 04/07/17 Pantoprazole Sodium [Protonix] 40 mg PO DAILY 04/07/17 Aspirin [Ecotrin] 81 mg PO DAILY 09/22/17 Furosemide [Lasix] 80 mg PO DAILY 09/22/17 Family Disease History - Family Disease History Family History: Unremarkable Review of Systems Findings/Remarks: as per H&P, HPI and ED records Physical Exam-GI Vital Signs: Vital Signs Temperature 98.1 F 09/24/17 09:00 Pulse Rate 76 09/24/17 09:00 Respiratory Rate 20 09/24/17 09:00 Blood Pressure 111/51 09/24/17 09:00 O2 Sat by Pulse Oximetry (%) 95 09/24/17 09:00 Constitutional: Yes: Well Nourished, No Distress, Calm Eyes: Yes: Conjunctiva Clear HENT: Yes: Atraumatic Neck: Yes: Supple Respiratory: Yes: Regular, CTA Bilaterally Neurological: Yes: Alert, Oriented Labs: CBC, BMP 09/24/17 06:00 INR, PTT INR 1.45 (0.82-1.09) H 09/22/17 15:40 Laboratory Last Values WBC 3.9 K/mm3 (4.0-10.0) L 09/24/17 06:00 RBC 2.69 M/mm3 (3.60-5.2) L 09/24/17 06:00 Hgb 7.1 GM/dL (10.7-15.3) L 09/24/17 06:00 Hct 22.1 % (32.4-45.2) L 09/24/17 06:00 MCV 82.4 fl (80-96) 09/24/17 06:00 MCH 26.2 pg (25.7-33.7) 09/24/17 06:00 MCHC 31.8 g/dl (32.0-36.0) L 09/24/17 06:00 RDW 22.0 % (11.6-15.6) H 09/24/17 06:00 Plt Count 113 K/MM3 (134-434) L D 09/24/17 06:00 MPV 7.8 fl (7.5-11.1) 09/24/17 06:00 Absolute Neuts (auto) 2.6 # 09/24/17 06:00 Neutrophils % 66.2 % (42.8-82.8) 09/24/17 06:00 Neutrophils % (Manual) 63.0 % (42.8-82.8) 09/23/17 13:30 Band Neutrophils % 2.0 % (0-10) 09/23/17 13:30 Lymphocytes % 12.0 % (8-40) D 09/24/17 06:00 Lymphocytes % (Manual) 24.0 % (8-40) 09/23/17 13:30 Monocytes % 16.4 % (3.8-10.2) H 09/24/17 06:00 Monocytes % (Manual) 7 % (3.8-10.2) 09/23/17 13:30 Eosinophils % 3.8 % (0-4.5) 09/24/17 06:00 Eosinophils % (Manual) 4.0 % (0-4.5) 09/23/17 13:30 Basophils % 1.6 % (0-2.0) 09/24/17 06:00 Nucleated RBC % 0 % (0-0) 09/24/17 06:00 Hypochromia 1+ 09/23/17 13:30 Platelet Estimate Adequate 09/23/17 13:30 Anisocytosis 2+ 09/23/17 13:30 Macrocytosis 2+ 09/22/17 15:40 Schistocytes 1+ 09/22/17 15:40 Retic Count 2.56 % (0.5-1.5) H 09/23/17 07:20 PT with INR 16.1 SEC (10.2-13.0) H 09/22/17 15:40 INR 1.45 (0.82-1.09) H 09/22/17 15:40 PTT (Actin FS) 26.8 SECONDS (24.0-38.9) 09/22/17 15:40 Sodium 134 mmol/L (136-145) L 09/24/17 06:00 Potassium 4.4 mmol/L (3.5-5.1) 09/24/17 06:00 Chloride 97 mmol/L (98-107) L 09/24/17 06:00 Carbon Dioxide 30 mmol/L (21-32) 09/24/17 06:00 Anion Gap 7 (8-16) L 09/24/17 06:00 BUN 45 mg/dL (7-18) H 09/24/17 06:00 Creatinine 1.8 mg/dL (0.55-1.02) H 09/24/17 06:00 Creat Clearance w eGFR 26.81 (>60) 09/24/17 06:00 Random Glucose 85 mg/dL (74-106) 09/24/17 06:00 Calcium 8.1 mg/dL (8.5-10.1) L 09/24/17 06:00 Phosphorus 4.1 mg/dL (2.5-4.9) 09/24/17 06:00 Magnesium 2.1 mg/dL (1.8-2.4) 09/24/17 06:00 Iron 20 ug/dL (27-139) L 09/23/17 07:20 TIBC 416 ug/dL (250-450) 09/23/17 07:20 Iron Saturation 5 % (15-55) L 09/23/17 07:20 Ferritin 12.4 ng/ml (6.9-282.5) 09/23/17 07:20 Total Bilirubin 0.9 mg/dL (0.2-1.0) D 09/24/17 06:00 AST 14 U/L (15-37) L 09/24/17 06:00 ALT 15 U/L (12-78) 09/24/17 06:00 Alkaline Phosphatase 48 U/L (45-117) 09/24/17 06:00 Creatine Kinase 82 IU/L (26-192) 09/24/17 06:50 Troponin I < 0.03 ng/ml (0.00-0.06) 09/22/17 16:13 B-Natriuretic Peptide 7577.93 pg/ml (5-450) H 09/23/17 13:30 Total Protein 6.3 g/dl (6.4-8.2) L 09/24/17 06:00 Albumin 3.2 g/dl (3.4-5.0) L 09/24/17 06:00 TSH 4.22 uIU/ml (0.358-3.74) H 09/23/17 08:16 Resin T3 Uptake 37.6 % (30-39) 09/23/17 07:20 Urine Color Straw 09/24/17 09:00 Urine Appearance Clear 09/24/17 09:00 Urine pH 6.0 (5.0-8.0) 09/24/17 09:00 Ur Specific [place] 1.008 (1.001-1.035) 09/24/17 09:00 Urine Protein Negative (NEGATIVE) 09/24/17 09:00 Urine Glucose (UA) Negative (NEGATIVE) 09/24/17 09:00 Urine Ketones Negative (NEGATIVE) 09/24/17 09:00 Urine Blood Negative (NEGATIVE) 09/24/17 09:00 Urine Nitrite Negative (NEGATIVE) 09/24/17 09:00 Urine Bilirubin Negative (<2.0 mg/dL) 09/24/17 09:00 Urine Urobilinogen Negative mg/dL (0.2-1.0) 09/24/17 09:00 Ur Leukocyte Esterase Negative (NEGATIVE) 09/24/17 09:00 Ur Random Sodium 95 MMOL/L 09/24/17 09:00 Ur Random Potassium 23.4 MMOL/L 09/24/17 09:00 Ur Random Chloride 112 MMOL/L 09/24/17 09:00 Anti-A Titer Cancelled 09/22/17 15:40 Blood Type B POSITIVE 09/22/17 16:48 Antibody Screen Negative 09/22/17 16:48 Crossmatch See Detail 09/22/17 16:48 Problem List - Problems (1) Microcytic hypochromic anemia Code(s): D50.9 - IRON DEFICIENCY ANEMIA, UNSPECIFIED (2) Diverticulosis Code(s): K57.90 - DVRTCLOS OF INTEST, PART UNSP, W/O PERF OR ABSCESS W/O BLEED (3) AMANDA (acute kidney injury) Code(s): N17.9 - ACUTE KIDNEY FAILURE, UNSPECIFIED (4) Acute on chronic systolic and diastolic heart failure, NYHA class 3 Code(s): I50.43 - ACUTE ON CHRONIC COMBINED SYSTOLIC AND DIASTOLIC HRT FAIL Assessment/Plan An 82-year-old female with history of microcytic, hypochromic anemia, normal upper endoscopy, diverticulosis and possible ischemic changes in the right colon on colonoscopy in March 2017. Currently no stigmata of recent, or ongoing gastrointestinal blood loss. Obtain iron panel, heptoglobin, LDH, Hemoccult. Monitor for signs and symptoms of gastrointestinal bleeding. No endoscopic workup needed at this time. Discussed with the patient.
[2017-09-24 13:06] LABS: ANION GAP 7 (8-16); BLOOD UREA NITROGEN 45 mg/dL (7-18); CALCIUM 8.1 mg/dL (8.5-10.1); CHLORIDE 97 mmol/L (98-107); CO2 30 mmol/L (21-32); CREATININE 1.8 mg/dL (0.55-1.02); GLUCOSE,RANDOM 85 mg/dL (74-106); MAGNESIUM 2.1 mg/dL (1.8-2.4); PHOSPHOROUS 4.1 mg/dL (2.5-4.9); POTASSIUM 4.4 mmol/L (3.5-5.1); SODIUM 134 mmol/L (136-145)
--- NOTE | 2017-09-24 17:51 | PN ---
Physical Exam: SUBJECTIVE: Patient seen and examined oob to chair. Transfusion ongoing. OBJECTIVE: Vital Signs Period Temp Pulse Resp BP Sys/Tenorio Pulse Ox Last 24 Hr 97.4 F-98.3 F 76-100 18-20 94-112/51-82 95-96 GENERAL: The patient is awake, alert, and fully oriented, in no acute distress. LUNGS: Breath diminished at bases; mildly dyspnic when speaking HEART: Irregular, S1, S2 ABDOMEN: Soft, nontender, nondistended EXTREMITIES: 2+ pulses, warm, well-perfused, trace edema. NEUROLOGICAL: Cranial nerves II through XII grossly intact. Normal speech. Laboratory Results - last 24 hr 09/22/17 09/23/17 09/24/17 16:48 07:20 06:00 WBC 3.9 L RBC 2.69 L Hgb 7.1 L Hct 22.1 L MCV 82.4 MCH 26.2 MCHC 31.8 L RDW 22.0 H Plt Count 113 L D MPV 7.8 Absolute Neuts (auto) 2.6 Neutrophils % 66.2 Lymphocytes % 12.0 D Monocytes % 16.4 H Eosinophils % 3.8 Basophils % 1.6 Nucleated RBC % 0 Sodium Potassium Chloride Carbon Dioxide Anion Gap BUN Creatinine Creat Clearance w eGFR Random Glucose Calcium Phosphorus Magnesium Iron 20 L TIBC 416 Iron Saturation 5 L Total Bilirubin AST ALT Alkaline Phosphatase Creatine Kinase Total Protein Albumin Urine Color Urine Appearance Urine pH Ur Specific [place] Urine Protein Urine Glucose (UA) Urine Ketones Urine Blood Urine Nitrite Urine Bilirubin Urine Urobilinogen Ur Leukocyte Esterase Ur Random Sodium Ur Random Potassium Ur Random Chloride Blood Type B POSITIVE Antibody Screen Negative Crossmatch See Detail 09/24/17 09/24/17 09/24/17 06:00 06:50 09:00 WBC RBC Hgb Hct MCV MCH MCHC RDW Plt Count MPV Absolute Neuts (auto) Neutrophils % Lymphocytes % Monocytes % Eosinophils % Basophils % Nucleated RBC % Sodium 134 L Potassium 4.4 Chloride 97 L Carbon Dioxide 30 Anion Gap 7 L BUN 45 H Creatinine 1.8 H Creat Clearance w eGFR 26.81 Random Glucose 85 Calcium 8.1 L Phosphorus 4.1 Magnesium 2.1 Iron TIBC Iron Saturation Total Bilirubin 0.9 D AST 14 L ALT 15 Alkaline Phosphatase 48 Creatine Kinase 82 Total Protein 6.3 L Albumin 3.2 L Urine Color Urine Appearance Urine pH Ur Specific [place] Urine Protein Urine Glucose (UA) Urine Ketones Urine Blood Urine Nitrite Urine Bilirubin Urine Urobilinogen Ur Leukocyte Esterase Ur Random Sodium 95 Ur Random Potassium 23.4 Ur Random Chloride 112 Blood Type Antibody Screen Crossmatch 09/24/17 09:00 WBC RBC Hgb Hct MCV MCH MCHC RDW Plt Count MPV Absolute Neuts (auto) Neutrophils % Lymphocytes % Monocytes % Eosinophils % Basophils % Nucleated RBC % Sodium Potassium Chloride Carbon Dioxide Anion Gap BUN Creatinine Creat Clearance w eGFR Random Glucose Calcium Phosphorus Magnesium Iron TIBC Iron Saturation Total Bilirubin AST ALT Alkaline Phosphatase Creatine Kinase Total Protein Albumin Urine Color Straw Urine Appearance Clear Urine pH 6.0 Ur Specific [place] 1.008 Urine Protein Negative Urine Glucose (UA) Negative Urine Ketones Negative Urine Blood Negative Urine Nitrite Negative Urine Bilirubin Negative Urine Urobilinogen Negative Ur Leukocyte Esterase Negative Ur Random Sodium Ur Random Potassium Ur Random Chloride Blood Type Antibody Screen Crossmatch Active Medications Generic Name Dose Route Start Last Admin Trade Name Freq PRN Reason Stop Dose Admin Acetaminophen 650 mg 09/22/17 23:30 09/24/17 12:49 Tylenol - PO 09/25/17 17:31 650 mg Q6H LUKE Administration Aspirin 81 mg 09/23/17 10:00 09/24/17 09:30 Ecotrin - PO 81 mg DAILY [facility]KE Administration Atorvastatin Calcium 40 mg 09/23/17 22:00 09/23/17 21:39 Lipitor - PO 40 mg HS LUKE Administration Carvedilol 12.5 mg 09/23/17 10:00 09/24/17 10:01 Coreg - PO 12.5 mg BID LUKE Administration Dorzolamide HCl 1 drop 09/23/17 10:00 09/23/17 09:37 Trusopt 2% OU 1 drop DAILY [facility] Administration Furosemide 40 mg 09/24/17 06:00 09/24/17 15:01 Lasix Injection - IVPUSH 40 mg BID@0600,1400 LUKE Administration Isosorbide Mononitrate 30 mg 09/23/17 10:00 09/24/17 09:29 Imdur - PO 30 mg DAILY [facility]KE Administration Latanoprost 1 drop 09/23/17 22:00 09/23/17 22:01 Xalatan 0.005% Eye Drops - OU 1 drop HS [facility]KE Administration Levothyroxine Sodium 100 mcg 09/23/17 07:00 09/24/17 06:35 Synthroid - PO 100 mcg DAILY@0700 [facility]KE Administration Pantoprazole Sodium 40 mg 09/23/17 10:00 09/24/17 09:29 Protonix - PO 40 mg DAILY [facility]KE Administration ASSESSMENT/PLAN 82 year-old female with a PMH significant for HTN, HLD, COD s/p stent, afib, heart failure, COPD, colon cancer, and hypothyroidism, admitted following a mechanical fall with acute on chronic heart failure and anemia requiring transfusion. 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 --patient has not pursued treatment Erosive gastritis --04/10/17 EGD: multiple erosions gastric antrum Acute blood loss anemia --Hgb drop to 7.1 --transfusing 1U PRBC now --repeat cbc AMANDA --likely due to volume overload, should improve with diuresis --hold ACEI/ARB Hypertension --continue carvedilol, isosorbide Hyperlipidemia --continue atorvastatin Coronary artery disease s/p EDSON --continue carvedilol, isosoride, atorvastatin Left breast mass --workup ongoing with PCP, mammo scheduled for 09/30 Hypothyroidism - continue levothyroxine FEN Fluids: PO intake adequate Electrolytes: replete as indicated Nutrition: low sodium DVT prophylaxis: hold chemical prophylaxis due to bleeding; SCDs, oob, ambulation Dispo: continues to require inpatient care. Full code. Palliative and pastoral care consults placed. Visit type - Emergency Visit Emergency Visit: Yes ED Registration Date: 09/24/17 Care time: The patient presented to the Emergency Department on the above date and was hospitalized for further evaluation of their emergent condition. - New Patient This patient is new to me today: Yes Date on this admission: 09/25/17 - Critical Care Critical Care patient: No
[2017-09-24 19:29] LABS: HEMATOCRIT 27.6 % (32.4-45.2); HEMOGLOBIN 8.8 GM/dL (10.7-15.3); MCH 25.7 pg (25.7-33.7); MEAN CELL VOLUME 80.2 fl (80-96); PLATELET COUNT 139 K/MM3 (134-434); RBC 3.44 M/mm3 (3.60-5.2); RDW 21.1 % (11.6-15.6); WHITE BLOOD COUNT 4.9 K/mm3 (4.0-10.0)
[2017-09-24] MEDS: ATORVASTATIN CA 40 MG TABLET (FP) PO SCH (21:31)
[2017-09-24] MEDS: LATANOPROST 0.005% OPHTH SOLN 2.5ML BOTTLE OU SCH (21:32)
[2017-09-25] MEDS: ACETAMINOPHEN 325 MG TABLET (FP) PO SCH ×4 (01:07→17:32)
[2017-09-25] MEDS: FUROSEMIDE 40 MG/4 ML INJECTABLE VIAL IVPUSH SCH ×2 (05:52→14:32)
[2017-09-25 06:30] LABS: BASO % 0.7 % (0-2.0); EOS % 2.8 % (0-4.5); HEMOGLOBIN 8.4 GM/dL (10.7-15.3); LYMPH % 11.2 % (8-40); MCH 25.8 pg (25.7-33.7); MCHC 32.3 g/dl (32.0-36.0); MEAN CELL VOLUME 79.9 fl (80-96); MEAN PLT VOLUME 7.5 fl (7.5-11.1); MONO % 15.2 % (3.8-10.2); NEUT % 70.1 % (42.8-82.8); PLATELET COUNT 109 K/MM3 (134-434); RBC 3.25 M/mm3 (3.60-5.2); RDW 20.7 % (11.6-15.6); WHITE BLOOD COUNT 4.8 K/mm3 (4.0-10.0)
[2017-09-25 06:45] LABS: ALBUMIN 3.1 g/dl (3.4-5.0); ANION GAP 9 (8-16); BLOOD UREA NITROGEN 41 mg/dL (7-18); CALCIUM 8.3 mg/dL (8.5-10.1); CHLORIDE 95 mmol/L (98-107); CO2 31 mmol/L (21-32); GLUCOSE,RANDOM 86 mg/dL (74-106); MAGNESIUM 2.2 mg/dL (1.8-2.4); POTASSIUM 4.3 mmol/L (3.5-5.1); SODIUM 135 mmol/L (136-145)
[2017-09-25 06:48] LABS: ALK PHOS 48 U/L (45-117); BILIRUBIN,TOTAL 1.3 mg/dL (0.2-1.0); CREATININE 1.5 mg/dL (0.55-1.02); SGOT/AST 13 U/L (15-37); SGPT/ALT 13 U/L (12-78); TOT PROT 6.1 g/dl (6.4-8.2)
[2017-09-25] MEDS: LEVOTHYROXINE NA 100 MCG TABLET (FP) PO SCH (06:50)
[2017-09-25] MEDS ORDERED: PT OWN MED DRAWER 7, Y5N ONE (09:19)
--- NOTE | 2017-09-25 09:47 | CONSULT ---
Consult Consult Specialty:: Infectious disease Referred by:: YAZAN Martin Reason for Consultation:: Positive urine culture multiple ABx allergies - History of Present Illness Chief Complaint: fall History of Present Illness: 82F with extensive PMH including CAD s/p stent CHF, colon cancer, COPD and anemia who presents to the ER after a fall at home. She complained of right side chest pain after the fall. Patient had UA done which was negative but urine culture is showing >100,000 CFU lactose fermenting GM negative bacili. She denies nausea vomiting fevers chils chest pain or shortness of breath. She denies dysuria, hematuria, increased frequency, urgency, or suprapubic pain. - Past Medical History Cardio/Vascular: Yes: AFIB, CAD, HTN, Hyperlipdemia Pulmonary: Yes: COPD Gastrointestinal: Yes: Cancer (colon) ...: No Psych: Yes: Anxiety - Past Surgical History Past Surgical History: Yes: Stent (coronary) - Alcohol/Substance Use Hx Alcohol Use: Yes (occasional) - Smoking History Smoking history: Former smoker Have you smoked in the past 12 months: No Aproximately how many cigarettes per day: 40 If you are a former smoker, when did you quit?: 23 YEARS AGO - Social History Usual Living Arrangement: Other (with sister) <Kulwinder Contreras - Last Filed: 09/25/17 12:32> Home Medications <Kulwinder Contreras - Last Filed: 09/25/17 12:32> <Angel Pedraza - Last Filed: 09/25/17 13:15> - Allergies Allergies/Adverse Reactions: Allergies Allergy/AdvReac Type Severity Reaction Status Date / Time cephalexin [Cephalexin] Allergy Intermediate Rash Verified 09/22/17 15:16 clindamycin Allergy Intermediate Rash Verified 09/22/17 15:16 naproxen [From Naprosyn] Allergy Intermediate ANKLES Verified 09/22/17 15:16 SWELLED UP Penicillins Allergy Intermediate Rash Verified 09/22/17 15:16 diphenhydramine HCl AdvReac CAN'T Verified 09/22/17 15:16 [From Benadryl] HAVE,HAS GLAUCOMA - Home Medications Home Medications: Ambulatory Orders Levothyroxine [Synthroid -] 100 mcg PO DAILY 03/19/15 Dorzolamide HCl [Trusopt] 1 drop OU DAILY 10/15/15 Atorvastatin Ca [Lipitor] 40 mg PO HS 10/11/16 Lisinopril 5 mg PO DAILY 10/11/16 Carvedilol [Coreg -] 12.5 mg PO BID #60 tablet 10/12/16 Isosorbide Mononitrate [Isosorbide Mononitrate ER] 30 mg PO DAILY 04/07/17 Latanoprost 0.005% Eye Drops [Xalatan 0.005% Eye Drops -] 1 drop OU HS 04/07/17 Pantoprazole Sodium [Protonix] 40 mg PO DAILY 04/07/17 Aspirin [Ecotrin] 81 mg PO DAILY 09/22/17 Furosemide [Lasix] 80 mg PO DAILY 09/22/17 Review of Systems - Review of Systems Constitutional: denies: Chills, Fever Eyes: reports: No Symptoms HENT: reports: No Symptoms Cardiovascular: reports: Other (right sided chest pain) Respiratory: reports: No Symptoms Gastrointestinal: reports: No Symptoms Genitourinary: denies: Burning, Discharge, Dysuria, Frequency, Hematuria, Urgency Neurological: reports: No Symptoms Psychiatric: reports: No Symptoms <Kulwinder Contreras - Last Filed: 09/25/17 12:32> Physical Exam Vital Signs: Vital Signs Temperature 97.7 F 09/25/17 06:00 Pulse Rate 82 09/25/17 06:00 Respiratory Rate 17 09/25/17 06:00 Blood Pressure 105/70 09/25/17 06:00 O2 Sat by Pulse Oximetry (%) 93 L 09/24/17 21:00 Constitutional: Yes: No Distress, Calm Neck: Yes: Supple Cardiovascular: Yes: Pulse Irregular, S1, S2 Respiratory: Yes: CTA Bilaterally Gastrointestinal: Yes: Soft Renal/: Yes: Other (no suprapubic tenderness). No: CVA Tenderness - Left, CVA Tenderness - Right Neurological: Yes: Alert, Oriented Psychiatric: Yes: Alert, Oriented Labs: CBC, BMP 09/25/17 05:30 09/25/17 05:30 <Kulwinder Contreras Last Filed: 09/25/17 12:32> Vital Signs: Vital Signs Temperature 97.7 F 09/25/17 09:00 Pulse Rate 82 09/25/17 09:00 Respiratory Rate 18 09/25/17 09:00 Blood Pressure 105/70 09/25/17 09:00 O2 Sat by Pulse Oximetry (%) 93 L 09/25/17 09:00 Labs: CBC, BMP 09/25/17 05:30 09/25/17 05:30 <Angel Pedraza - Last Filed: 09/25/17 13:15> Imaging - Results Cat Scan: Report Reviewed, Image Reviewed Ultrasound: Report Reviewed, Image Reviewed <Kulwinder Contreras - Last Filed: 09/25/17 12:32> Assessment/Plan 82yF with multiple medical problems presents to the hospital s/p fall Problem List: HTN HLD CHF CAD nSTEMI s/p stent AFIB COPD colon CA AMANDA hypothyroidism rib contusion AMANDA Plan: Penicillin allergy is from over 60 years ago and patient got a rash has received ceftriaxone in the past according to records Given negative UA, negative signs & symptoms, positive urine culture likely colonization Would hold off on treatment at this time thank you for this consult Please re-consult PRN <Kulwinder Contreras - Last Filed: 09/25/17 12:32>
[2017-09-25] MEDS: CARVEDILOL 12.5 MG TABLET (FP) PO SCH ×2 (10:41→22:20)
[2017-09-25] MEDS: ASPIRIN COATED 81 MG TABLET.EC PO SCH (10:41)
[2017-09-25] MEDS: PANTOPRAZOLE 40 MG TABLET (FP) PO SCH (10:41)
[2017-09-25] MEDS: ISOSORBIDE MONONITRATE 30 MG TAB.SR.24H (FP) PO SCH (10:41)
[2017-09-25] MEDS: DORZOLAMIDE 2% HCL OPHTHALMIC SOLUTION 10 ML BOTTLE OU SCH (10:42)
--- NOTE | 2017-09-25 11:52 | PN ---
Progress Note, Physician History of Present Illness: No acute events overnight. Clinically the same. - Current Medication List Current Medications: Active Medications Acetaminophen (Tylenol -) 650 mg PO Q6H [facility] Stop: 09/25/17 23:31 Last Admin: 09/25/17 10:57 Dose: 650 mg Aspirin (Ecotrin -) 81 mg PO DAILY [facility] Last Admin: 09/25/17 10:41 Dose: 81 mg Atorvastatin Calcium (Lipitor -) 40 mg PO HS [facility] Last Admin: 09/24/17 21:31 Dose: 40 mg Carvedilol (Coreg -) 12.5 mg PO BID [facility] Last Admin: 09/25/17 10:41 Dose: 12.5 mg Dorzolamide HCl (Trusopt 2%) 1 drop OU DAILY [facility] Last Admin: 09/25/17 10:42 Dose: 1 drop Furosemide (Lasix Injection -) 40 mg IVPUSH BID@0600,1400 [facility] Last Admin: 09/25/17 05:52 Dose: 40 mg Isosorbide Mononitrate (Imdur -) 30 mg PO DAILY [facility] Last Admin: 09/25/17 10:41 Dose: 30 mg Latanoprost (Xalatan 0.005% Eye Drops -) 1 drop OU HS [facility] Last Admin: 09/24/17 21:32 Dose: 1 drop Levothyroxine Sodium (Synthroid -) 100 mcg PO DAILY@0700 [facility] Last Admin: 09/25/17 06:50 Dose: 100 mcg Pantoprazole Sodium (Protonix -) 40 mg PO DAILY [facility] Last Admin: 09/25/17 10:41 Dose: 40 mg - Objective Vital Signs: Vital Signs Temperature 97.7 F 09/25/17 06:00 Pulse Rate 82 09/25/17 06:00 Respiratory Rate 17 09/25/17 06:00 Blood Pressure 105/70 09/25/17 06:00 O2 Sat by Pulse Oximetry (%) 93 L 09/24/17 21:00 Constitutional: Yes: No Distress, Calm Eyes: Yes: Conjunctiva Clear Gastrointestinal: Yes: Normal Bowel Sounds, Soft Labs: CBC, BMP 09/25/17 05:30 09/25/17 05:30 INR, PTT INR 1.45 (0.82-1.09) H 09/22/17 15:40 Laboratory Last Values WBC 4.8 K/mm3 (4.0-10.0) 09/25/17 05:30 RBC 3.25 M/mm3 (3.60-5.2) L 09/25/17 05:30 Hgb 8.4 GM/dL (10.7-15.3) L 09/25/17 05:30 Hct 26.0 % (32.4-45.2) L 09/25/17 05:30 MCV 79.9 fl (80-96) L 09/25/17 05:30 MCH 25.8 pg (25.7-33.7) 09/25/17 05:30 MCHC 32.3 g/dl (32.0-36.0) 09/25/17 05:30 RDW 20.7 % (11.6-15.6) H 09/25/17 05:30 Plt Count 109 K/MM3 (134-434) L D 09/25/17 05:30 MPV 7.5 fl (7.5-11.1) 09/25/17 05:30 Absolute Neuts (auto) 3.4 # 09/25/17 05:30 Neutrophils % 70.1 % (42.8-82.8) 09/25/17 05:30 Neutrophils % (Manual) 63.0 % (42.8-82.8) 09/23/17 13:30 Band Neutrophils % 2.0 % (0-10) 09/23/17 13:30 Lymphocytes % 11.2 % (8-40) 09/25/17 05:30 Lymphocytes % (Manual) 24.0 % (8-40) 09/23/17 13:30 Monocytes % 15.2 % (3.8-10.2) H 09/25/17 05:30 Monocytes % (Manual) 7 % (3.8-10.2) 09/23/17 13:30 Eosinophils % 2.8 % (0-4.5) 09/25/17 05:30 Eosinophils % (Manual) 4.0 % (0-4.5) 09/23/17 13:30 Basophils % 0.7 % (0-2.0) 09/25/17 05:30 Nucleated RBC % 0 % (0-0) 09/25/17 05:30 Hypochromia 1+ 09/23/17 13:30 Platelet Estimate Adequate 09/23/17 13:30 Anisocytosis 2+ 09/23/17 13:30 Macrocytosis 2+ 09/22/17 15:40 Schistocytes 1+ 09/22/17 15:40 Retic Count 2.56 % (0.5-1.5) H 09/23/17 07:20 PT with INR 16.1 SEC (10.2-13.0) H 09/22/17 15:40 INR 1.45 (0.82-1.09) H 09/22/17 15:40 PTT (Actin FS) 26.8 SECONDS (24.0-38.9) 09/22/17 15:40 Sodium 135 mmol/L (136-145) L 09/25/17 05:30 Potassium 4.3 mmol/L (3.5-5.1) 09/25/17 05:30 Chloride 95 mmol/L (98-107) L 09/25/17 05:30 Carbon Dioxide 31 mmol/L (21-32) 09/25/17 05:30 Anion Gap 9 (8-16) 09/25/17 05:30 BUN 41 mg/dL (7-18) H 09/25/17 05:30 Creatinine 1.5 mg/dL (0.55-1.02) H 09/25/17 05:30 Creat Clearance w eGFR 33.08 (>60) 09/25/17 05:30 Random Glucose 86 mg/dL (74-106) 09/25/17 05:30 Calcium 8.3 mg/dL (8.5-10.1) L 09/25/17 05:30 Phosphorus 4.1 mg/dL (2.5-4.9) 09/24/17 06:00 Magnesium 2.2 mg/dL (1.8-2.4) 09/25/17 05:30 Iron 20 ug/dL (27-139) L 09/23/17 07:20 TIBC 416 ug/dL (250-450) 09/23/17 07:20 Iron Saturation 5 % (15-55) L 09/23/17 07:20 Ferritin 12.4 ng/ml (6.9-282.5) 09/23/17 07:20 Total Bilirubin 1.3 mg/dL (0.2-1.0) H D 09/25/17 05:30 AST 13 U/L (15-37) L 09/25/17 05:30 ALT 13 U/L (12-78) 09/25/17 05:30 Alkaline Phosphatase 48 U/L (45-117) 09/25/17 05:30 Creatine Kinase 82 IU/L (26-192) 09/24/17 06:50 Troponin I < 0.03 ng/ml (0.00-0.06) 09/22/17 16:13 B-Natriuretic Peptide 7577.93 pg/ml (5-450) H 09/23/17 13:30 Total Protein 6.1 g/dl (6.4-8.2) L 09/25/17 05:30 Albumin 3.1 g/dl (3.4-5.0) L 09/25/17 05:30 TSH 4.22 uIU/ml (0.358-3.74) H 09/23/17 08:16 Resin T3 Uptake 37.6 % (30-39) 09/23/17 07:20 Urine Color Straw 09/24/17 09:00 Urine Appearance Clear 09/24/17 09:00 Urine pH 6.0 (5.0-8.0) 09/24/17 09:00 Ur Specific [place] 1.008 (1.001-1.035) 09/24/17 09:00 Urine Protein Negative (NEGATIVE) 09/24/17 09:00 Urine Glucose (UA) Negative (NEGATIVE) 09/24/17 09:00 Urine Ketones Negative (NEGATIVE) 09/24/17 09:00 Urine Blood Negative (NEGATIVE) 09/24/17 09:00 Urine Nitrite Negative (NEGATIVE) 09/24/17 09:00 Urine Bilirubin Negative (<2.0 mg/dL) 09/24/17 09:00 Urine Urobilinogen Negative mg/dL (0.2-1.0) 09/24/17 09:00 Ur Leukocyte Esterase Negative (NEGATIVE) 09/24/17 09:00 Ur Random Sodium 95 MMOL/L 09/24/17 09:00 Ur Random Potassium 23.4 MMOL/L 09/24/17 09:00 Ur Random Chloride 112 MMOL/L 09/24/17 09:00 Urine Creatinine 19.4 mg/dL (20-320) L 09/24/17 09:00 Anti-A Titer Cancelled 09/22/17 15:40 Blood Type B POSITIVE 09/22/17 16:48 Antibody Screen Negative 09/22/17 16:48 Crossmatch See Detail 09/22/17 16:48 Problem List - Problems (1) Microcytic hypochromic anemia Code(s): D50.9 - IRON DEFICIENCY ANEMIA, UNSPECIFIED (2) Diverticulosis Code(s): K57.90 - DVRTCLOS OF INTEST, PART UNSP, W/O PERF OR ABSCESS W/O BLEED (3) AMANDA (acute kidney injury) Code(s): N17.9 - ACUTE KIDNEY FAILURE, UNSPECIFIED (4) Acute on chronic systolic and diastolic heart failure, NYHA class 3 Code(s): I50.43 - ACUTE ON CHRONIC COMBINED SYSTOLIC AND DIASTOLIC HRT FAIL Assessment/Plan Heptoglobin, LDH, Hemoccult. Continue current care. Monitor for signs and symptoms of gastrointestinal bleeding.
--- NOTE | 2017-09-25 13:31 | PN ---
Teaching Attending Note Name of Resident: Kulwinder Contreras ATTENDING PHYSICIAN STATEMENT I saw and evaluated the patient. I reviewed the resident's note and discussed the case with the resident. I agree with the resident's findings and plan as documented. SUBJECTIVE: OBJECTIVE: ASSESSMENT AND PLAN: Asymptomatic bacteruria Observe off antibiotics
--- NOTE | 2017-09-25 14:15 | PN ---
Progress Note, Physician History of Present Illness: Pt seen and examined at bedside. She is out of bed to chair. She feels that her breathing is a little better. - Current Medication List Current Medications: Active Medications Acetaminophen (Tylenol -) 650 mg PO Q6H [facility] Stop: 09/25/17 23:31 Last Admin: 09/25/17 10:57 Dose: 650 mg Aspirin (Ecotrin -) 81 mg PO DAILY [facility] Last Admin: 09/25/17 10:41 Dose: 81 mg Atorvastatin Calcium (Lipitor -) 40 mg PO HS [facility] Last Admin: 09/24/17 21:31 Dose: 40 mg Carvedilol (Coreg -) 12.5 mg PO BID [facility] Last Admin: 09/25/17 10:41 Dose: 12.5 mg Dorzolamide HCl (Trusopt 2%) 1 drop OU DAILY [facility] Last Admin: 09/25/17 10:42 Dose: 1 drop Furosemide (Lasix Injection -) 40 mg IVPUSH BID@0600,1400 [facility] Last Admin: 09/25/17 05:52 Dose: 40 mg Isosorbide Mononitrate (Imdur -) 30 mg PO DAILY [facility] Last Admin: 09/25/17 10:41 Dose: 30 mg Latanoprost (Xalatan 0.005% Eye Drops -) 1 drop OU HS [facility] Last Admin: 09/24/17 21:32 Dose: 1 drop Levothyroxine Sodium (Synthroid -) 100 mcg PO DAILY@0700 [facility] Last Admin: 09/25/17 06:50 Dose: 100 mcg Pantoprazole Sodium (Protonix -) 40 mg PO DAILY [facility] Last Admin: 09/25/17 10:41 Dose: 40 mg - Objective Vital Signs: Vital Signs Temperature 97.7 F 09/25/17 09:00 Pulse Rate 82 09/25/17 09:00 Respiratory Rate 18 09/25/17 09:00 Blood Pressure 105/70 09/25/17 09:00 O2 Sat by Pulse Oximetry (%) 93 L 09/25/17 09:00 Constitutional: Yes: Calm Eyes: Yes: Conjunctiva Clear HENT: Yes: Atraumatic Cardiovascular: Yes: S1, S2 Respiratory: Yes: On Nasal O2 Gastrointestinal: Yes: Soft Genitourinary: Yes: WNL Musculoskeletal: Yes: WNL Edema: Yes Edema: LLE: 1+, RLE: 1+ Neurological: Yes: Oriented Psychiatric: Yes: Oriented Labs: CBC, BMP 09/25/17 05:30 09/25/17 05:30 INR, PTT INR 1.45 (0.82-1.09) H 09/22/17 15:40 Problem List - Problems (1) AMANDA (acute kidney injury) Code(s): N17.9 - ACUTE KIDNEY FAILURE, UNSPECIFIED Assessment/Plan Current Medications Generic Name Dose Route Start Last Admin Trade Name Mason PRN Reason Stop Dose Admin Acetaminophen 650 mg 09/24/17 23:30 09/25/17 10:57 Tylenol - PO 09/25/17 23:31 650 mg Q6H [facility] Administration Aspirin 81 mg 09/25/17 10:00 09/25/17 10:41 Ecotrin - PO 81 mg DAILY [facility] Administration Atorvastatin Calcium 40 mg 09/24/17 22:00 09/24/17 21:31 Lipitor - PO 40 mg HS [facility] Administration Carvedilol 12.5 mg 09/24/17 22:00 09/25/17 10:41 Coreg - PO 12.5 mg BID [facility] Administration Dorzolamide HCl 1 drop 09/25/17 10:00 09/25/17 10:42 Trusopt 2% OU 1 drop DAILY [facility] Administration Furosemide 40 mg 09/25/17 06:00 09/25/17 05:52 Lasix Injection - IVPUSH 40 mg BID@0600,1400 [facility] Administration Isosorbide Mononitrate 30 mg 09/25/17 10:00 09/25/17 10:41 Imdur - PO 30 mg DAILY [facility] Administration Latanoprost 1 drop 09/24/17 22:00 09/24/17 21:32 Xalatan 0.005% Eye Drops - OU 1 drop HS [facility] Administration Levothyroxine Sodium 100 mcg 09/25/17 07:00 09/25/17 06:50 Synthroid - PO 100 mcg DAILY@0700 [facility] Administration Pantoprazole Sodium 40 mg 09/25/17 10:00 09/25/17 10:41 Protonix - PO 40 mg DAILY [facility] Administration Impression 1. AMANDA 2. CHF 3. s/p fall 4. a-fib 5. CAD 6. hypothyroidism 7. colon cancer 8. copd 9. ckd Plan - cont lasix - cont to monitor renal function - monitor hg - ultrasound shows bilateral atrophic kidneys - avoid nsaids Dr Tabares
--- NOTE | 2017-09-25 17:37 | PN ---
Progress Note (short form) - Note Progress Note: Subjective: Current Medications Generic Name Dose Route Start Last Admin Trade Name Mason PRN Reason Stop Dose Admin Acetaminophen 650 mg 09/24/17 23:30 09/25/17 17:32 Tylenol - PO 09/25/17 23:31 650 mg Q6H [facility] Administration Aspirin 81 mg 09/25/17 10:00 09/25/17 10:41 Ecotrin - PO 81 mg DAILY [facility] Administration Atorvastatin Calcium 40 mg 09/24/17 22:00 09/24/17 21:31 Lipitor - PO 40 mg HS [facility] Administration Carvedilol 12.5 mg 09/24/17 22:00 09/25/17 10:41 Coreg - PO 12.5 mg BID [facility] Administration Dorzolamide HCl 1 drop 09/25/17 10:00 09/25/17 10:42 Trusopt 2% OU 1 drop DAILY [facility] Administration Furosemide 40 mg 09/25/17 06:00 09/25/17 14:32 Lasix Injection - IVPUSH 40 mg BID@0600,1400 [facility] Administration Isosorbide Mononitrate 30 mg 09/25/17 10:00 09/25/17 10:41 Imdur - PO 30 mg DAILY [facility] Administration Latanoprost 1 drop 09/24/17 22:00 09/24/17 21:32 Xalatan 0.005% Eye Drops - OU 1 drop HS [facility] Administration Levothyroxine Sodium 100 mcg 09/25/17 07:00 09/25/17 06:50 Synthroid - PO 100 mcg DAILY@0700 [facility] Administration Pantoprazole Sodium 40 mg 09/25/17 10:00 09/25/17 10:41 Protonix - PO 40 mg DAILY [facility] Administration Objective: Vital Signs Period Temp Pulse Resp BP Sys/[place] Pulse Ox Last 24 Hr 97.6 F-97.7 F 82-101 17-20 100-111/60-73 82-93 Physical Exam: CBCD WBC 4.8 K/mm3 (4.0-10.0) 09/25/17 05:30 RBC 3.25 M/mm3 (3.60-5.2) L 09/25/17 05:30 Hgb 8.4 GM/dL (10.7-15.3) L 09/25/17 05:30 Hct 26.0 % (32.4-45.2) L 09/25/17 05:30 MCV 79.9 fl (80-96) L 09/25/17 05:30 MCHC 32.3 g/dl (32.0-36.0) 09/25/17 05:30 RDW 20.7 % (11.6-15.6) H 09/25/17 05:30 Plt Count 109 K/MM3 (134-434) L D 09/25/17 05:30 MPV 7.5 fl (7.5-11.1) 09/25/17 05:30 CMP Sodium 135 mmol/L (136-145) L 09/25/17 05:30 Potassium 4.3 mmol/L (3.5-5.1) 09/25/17 05:30 Chloride 95 mmol/L (98-107) L 09/25/17 05:30 Carbon Dioxide 31 mmol/L (21-32) 09/25/17 05:30 Anion Gap 9 (8-16) 09/25/17 05:30 BUN 41 mg/dL (7-18) H 09/25/17 05:30 Creatinine 1.5 mg/dL (0.55-1.02) H 09/25/17 05:30 Creat Clearance w eGFR 33.08 (>60) 09/25/17 05:30 Random Glucose 86 mg/dL (74-106) 09/25/17 05:30 Calcium 8.3 mg/dL (8.5-10.1) L 09/25/17 05:30 Total Bilirubin 1.3 mg/dL (0.2-1.0) H D 09/25/17 05:30 AST 13 U/L (15-37) L 09/25/17 05:30 ALT 13 U/L (12-78) 09/25/17 05:30 Alkaline Phosphatase 48 U/L (45-117) 09/25/17 05:30 Total Protein 6.1 g/dl (6.4-8.2) L 09/25/17 05:30 Albumin 3.1 g/dl (3.4-5.0) L 09/25/17 05:30 CARDIAC ENZYMES Creatine Kinase 82 IU/L (26-192) 09/24/17 06:50 Troponin I < 0.03 ng/ml (0.00-0.06) 09/22/17 16:13 Visit type - Emergency Visit Emergency Visit: Yes ED Registration Date: 09/24/17 Care time: The patient presented to the Emergency Department on the above date and was hospitalized for further evaluation of their emergent condition. - New Patient This patient is new to me today: No - Critical Care Critical Care patient: No
--- NOTE | 2017-09-25 18:55 | PN ---
Progress Note, Physician Chief Complaint: Pt A&Ox3; OOB in chair; no chest pain; still with dyspnea on mild exertion. 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 within the past year, who now, per pt and her sister, Hanane, is admitted after she fell while trying to open a can (did not faint) and hurt the right side of her chest. She has been feeling short of breath for days, with bilateral leg swelling. Her left breast has also been swollen and tender. - Current Medication List Current Medications: Active Medications Acetaminophen (Tylenol -) 650 mg PO Q6H [facility] Stop: 09/25/17 23:31 Last Admin: 09/25/17 17:32 Dose: 650 mg Aspirin (Ecotrin -) 81 mg PO DAILY [facility] Last Admin: 09/25/17 10:41 Dose: 81 mg Atorvastatin Calcium (Lipitor -) 40 mg PO HS [facility] Last Admin: 09/24/17 21:31 Dose: 40 mg Carvedilol (Coreg -) 12.5 mg PO BID [facility] Last Admin: 09/25/17 10:41 Dose: 12.5 mg Dorzolamide HCl (Trusopt 2%) 1 drop OU DAILY [facility] Last Admin: 09/25/17 10:42 Dose: 1 drop Furosemide (Lasix Injection -) 40 mg IVPUSH BID@0600,1400 [facility] Last Admin: 09/25/17 14:32 Dose: 40 mg Isosorbide Mononitrate (Imdur -) 30 mg PO DAILY [facility] Last Admin: 09/25/17 10:41 Dose: 30 mg Latanoprost (Xalatan 0.005% Eye Drops -) 1 drop OU HS [facility] Last Admin: 09/24/17 21:32 Dose: 1 drop Levothyroxine Sodium (Synthroid -) 100 mcg PO DAILY@0700 [facility] Last Admin: 09/25/17 06:50 Dose: 100 mcg Pantoprazole Sodium (Protonix -) 40 mg PO DAILY [facility] Last Admin: 09/25/17 10:41 Dose: 40 mg - Objective Vital Signs: Vital Signs Temperature 97.7 F 09/25/17 09:00 Pulse Rate 99 H 09/25/17 15:00 Respiratory Rate 20 09/25/17 15:00 Blood Pressure 111/73 09/25/17 15:00 O2 Sat by Pulse Oximetry (%) 93 L 09/25/17 09:00 Constitutional: Yes: Anxious (wants to go home) Eyes: Yes: WNL HENT: Yes: WNL Neck: Yes: WNL Cardiovascular: Yes: Pulse Irregular Respiratory: Yes: Diminished Gastrointestinal: Yes: Soft ...Rectal Exam: Yes: Deferred Genitourinary: No: Anuria Musculoskeletal: Yes: Muscle Weakness Extremities: Yes: Cool Edema: Yes Edema: LLE: Trace, RLE: 1+ Peripheral Pulses WNL: No Peripheral Pulses: Left Doralis Pedis: 1+, Right Dorsalis Pedis: 1+ Integumentary: Yes: WNL Neurological: Yes: Alert, Oriented, Weakness Psychiatric: Yes: WNL Labs: CBC, BMP 09/25/17 05:30 09/25/17 05:30 INR, PTT INR 1.45 (0.82-1.09) H 09/22/17 15:40 Abnormal Lab Results 09/26/17 09/26/17 06:15 06:15 RBC 3.45 L Hgb 9.3 L D Hct 27.6 L RDW 20.9 H Plt Count 123 L MPV 7.4 L Monocytes % 16.0 H Sodium 133 L Chloride 94 L BUN 41 H Creatinine 1.5 H Total Bilirubin 1.2 H AST 13 L - ....Imaging Other: Image Reviewed (telemetry: AF; periods of RVR) Problem List - Problems (1) Acute on chronic systolic and diastolic heart failure, NYHA class 3 Assessment/Plan: Continue carvedilol bid Start lisinopril if cleared by research psychologist (improving renal values). CT chest: CHF, pleural and pericardial effusion. BNP 7,577 (the highest recorded on multiple hospital visits). TNI < 0.02 TSH mildly elevated; T3 uptake WNL. On furosemide; may change to PO. F/u BUN/Cr, electrolytes, Is and Os, daily weight. Code(s): I50.43 - ACUTE ON CHRONIC COMBINED SYSTOLIC AND DIASTOLIC HRT FAIL (2) Contusion of rib on right side Code(s): S20.211A - CONTUSION OF RIGHT FRONT WALL OF THORAX, INITIAL ENCOUNTER (3) ASHD (arteriosclerotic heart disease) Code(s): I25.10 - ATHSCL HEART DISEASE OF [place] CORONARY ARTERY W/O ANG PCTRS (4) Atrial fibrillation Assessment/Plan: on carvedilol for HR control and systolic CHF. Pt was on apixaban for anticoagulation; it was apparently stopped when she had ? GI bleed requiring PRBCs two months ago at [facility]. Recommend obtaining records from [facility] (per family, upper endoscopy was done while at [facility], but not colonoscopy). Hematology and GI f/u;f/u HB; stood quaiac. Pt is on ASA for CAD. Start apixaban as soon as possible (pt's sister, Hanane, and daughter, Katina tell me today that MD at [facility] spoke in detail with pt and family prior to discharge after recent admission for GI bleed; reportedly stated that she could be restarted on apixaban, but it was up to Karli to decide. Pt refused, saying she did not want to have a stroke; family members believe pt did not fully understand the benefits vs risks of apixaban; pt now says she will agree with restarting apixaban). Code(s): I48.91 - UNSPECIFIED ATRIAL FIBRILLATION Qualifiers: Atrial fibrillation type: unspecified Qualified Code(s): I48.91 - Unspecified atrial fibrillation (5) COPD (chronic obstructive pulmonary disease) Code(s): J44.9 - CHRONIC OBSTRUCTIVE PULMONARY DISEASE, UNSPECIFIED (6) Colon cancer Code(s): C18.9 - MALIGNANT NEOPLASM OF COLON, UNSPECIFIED (7) GI bleed Code(s): K92.2 - GASTROINTESTINAL HEMORRHAGE, UNSPECIFIED Qualifiers: GI bleed type/associated pathology: unspecified gastrointestinal hemorrhage type Qualified Code(s): K92.2 - Gastrointestinal hemorrhage, unspecified (8) Moderate to severe pulmonary hypertension Code(s): I27.2 - OTHER SECONDARY PULMONARY HYPERTENSION * DO NOT USE * (9) Severe mitral regurgitation Code(s): I34.0 - NONRHEUMATIC MITRAL (VALVE) INSUFFICIENCY (10) Breast pain in female Code(s): N64.4 - MASTODYNIA (11) Pericardial effusion Code(s): I31.3 - PERICARDIAL EFFUSION (NONINFLAMMATORY) (12) Anemia Code(s): D64.9 - ANEMIA, UNSPECIFIED Qualifiers: Anemia type: unspecified type Qualified Code(s): D64.9 - Anemia, unspecified
[2017-09-25] MEDS: LATANOPROST 0.005% OPHTH SOLN 2.5ML BOTTLE OU SCH (22:20)
[2017-09-25] MEDS: ATORVASTATIN CA 40 MG TABLET (FP) PO SCH (22:20)
[2017-09-26 03:09] VITALS: TEMP 98
[2017-09-26 06:31] LABS: HEMATOCRIT 27.6 % (32.4-45.2); HEMOGLOBIN 9.3 GM/dL (10.7-15.3); LYMPH % 9.9 % (8-40); MCH 26.8 pg (25.7-33.7); MCHC 33.5 g/dl (32.0-36.0); MEAN CELL VOLUME 80.1 fl (80-96); MEAN PLT VOLUME 7.4 fl (7.5-11.1); NEUT % 70.1 % (42.8-82.8); PLATELET COUNT 123 K/MM3 (134-434); RBC 3.45 M/mm3 (3.60-5.2); RDW 20.9 % (11.6-15.6); WHITE BLOOD COUNT 5.2 K/mm3 (4.0-10.0)
[2017-09-26] MEDS: FUROSEMIDE 40 MG/4 ML INJECTABLE VIAL IVPUSH SCH (06:38)
[2017-09-26] MEDS: LEVOTHYROXINE NA 100 MCG TABLET (FP) PO SCH (06:38)
[2017-09-26] MEDS: ACETAMINOPHEN 325 MG TABLET (FP) PO SCH ×2 (06:46)
[2017-09-26 06:49] VITALS: BP 121/88; PULSE 107
[2017-09-26 06:58] LABS: CHLORIDE 94 mmol/L (98-107); POTASSIUM 4.3 mmol/L (3.5-5.1); SODIUM 133 mmol/L (136-145)
[2017-09-26 07:04] LABS: ALBUMIN 3.5 g/dl (3.4-5.0); ALK PHOS 52 U/L (45-117); ANION GAP 8 (8-16); BILIRUBIN,TOTAL 1.2 mg/dL (0.2-1.0); BLOOD UREA NITROGEN 41 mg/dL (7-18); CALCIUM 8.9 mg/dL (8.5-10.1); CO2 31 mmol/L (21-32); CREATININE 1.5 mg/dL (0.55-1.02); GLUCOSE,RANDOM 99 mg/dL (74-106); SGOT/AST 13 U/L (15-37); SGPT/ALT 15 U/L (12-78); TOT PROT 6.9 g/dl (6.4-8.2)
[2017-09-26] MEDS: ISOSORBIDE MONONITRATE 30 MG TAB.SR.24H (FP) PO SCH (10:37)
[2017-09-26] MEDS: CARVEDILOL 12.5 MG TABLET (FP) PO SCH (10:37)
[2017-09-26] MEDS: PANTOPRAZOLE 40 MG TABLET (FP) PO SCH (10:37)
[2017-09-26] MEDS: ASPIRIN COATED 81 MG TABLET.EC PO SCH (10:37)
[2017-09-26] MEDS: DORZOLAMIDE 2% HCL OPHTHALMIC SOLUTION 10 ML BOTTLE OU SCH (10:37)
--- NOTE | 2017-09-26 11:41 | PN ---
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 She has been feeling short of breath for days, with bilateral leg swelling. Her left breast has also been swollen and tender. - Current Medication List Current Medications: Active Medications Aspirin (Ecotrin -) 81 mg PO DAILY [facility] Last Admin: 09/26/17 10:37 Dose: 81 mg Atorvastatin Calcium (Lipitor -) 40 mg PO HS [facility] Last Admin: 09/25/17 22:20 Dose: 40 mg Carvedilol (Coreg -) 12.5 mg PO BID [facility] Last Admin: 09/26/17 10:37 Dose: 12.5 mg Dorzolamide HCl (Trusopt 2%) 1 drop OU DAILY [facility] Last Admin: 09/26/17 10:37 Dose: 1 drop Furosemide (Lasix Injection -) 40 mg IVPUSH BID@0600,1400 [facility] Last Admin: 09/26/17 06:38 Dose: 40 mg Isosorbide Mononitrate (Imdur -) 30 mg PO DAILY [facility] Last Admin: 09/26/17 10:37 Dose: 30 mg Latanoprost (Xalatan 0.005% Eye Drops -) 1 drop OU [facility] Last Admin: 09/25/17 22:20 Dose: 1 drop Levothyroxine Sodium (Synthroid -) 100 mcg PO DAILY@0700 [facility] Last Admin: 09/26/17 06:38 Dose: 100 mcg Pantoprazole Sodium (Protonix -) 40 mg PO DAILY [facility] Last Admin: 09/26/17 10:37 Dose: 40 mg - Objective Vital Signs: Vital Signs Temperature 98 F 09/26/17 01:00 Pulse Rate 107 H 09/26/17 06:48 Respiratory Rate 20 09/26/17 06:48 Blood Pressure 121/88 09/26/17 06:48 O2 Sat by Pulse Oximetry (%) 99 09/25/17 20:43 Eyes: Yes: WNL, Conjunctiva Clear, EOM Intact HENT: Yes: WNL, Atraumatic, Normocephalic Neck: Yes: WNL, Supple, Trachea Midline Cardiovascular: Yes: WNL, Regular Rate and Rhythm Respiratory: Yes: WNL, Regular, CTA Bilaterally Gastrointestinal: Yes: WNL, Normal Bowel Sounds Genitourinary: Yes: WNL Musculoskeletal: Yes: WNL Extremities: Yes: WNL Edema: No Integumentary: Yes: WNL Neurological: Yes: WNL, Alert, Oriented ...Motor Strength: WNL Psychiatric: Yes: WNL Labs: CBC, BMP 09/26/17 06:15 09/26/17 06:15 INR, PTT INR 1.45 (0.82-1.09) H 09/22/17 15:40 Assessment/Plan - Problems (1) Acute on chronic systolic and diastolic heart failure, NYHA class 3 Assessment/Plan: Continue carvedilol bid Start lisinopril if cleared by analog ic design engineer (improving renal values). CT chest: CHF, pleural and pericardial effusion. BNP 7,577 (the highest recorded on multiple hospital visits). TNI < 0.02 TSH mildly elevated; T3 uptake WNL. On furosemide; may change to PO. F/u BUN/Cr, electrolytes, Is and Os, daily weight. Code(s): I50.43 - ACUTE ON CHRONIC COMBINED SYSTOLIC AND DIASTOLIC HRT FAIL (2) Contusion of rib on right side Code(s): S20.211A - CONTUSION OF RIGHT FRONT WALL OF THORAX, INITIAL ENCOUNTER (3) ASHD (arteriosclerotic heart disease) Code(s): I25.10 - ATHSCL HEART DISEASE OF [place] CORONARY ARTERY W/O ANG PCTRS (4) Atrial fibrillation Assessment/Plan: on carvedilol for HR control and systolic CHF. Pt was on apixaban for anticoagulation; it was apparently stopped when she had ? GI bleed requiring PRBCs two months ago at [facility]. Recommend obtaining records from [facility] (per family, upper endoscopy was done while at [facility], but not colonoscopy). Hematology and GI f/u;f/u HB; stood quaiac. Pt is on ASA for CAD. Start apixaban as soon as possible (pt's sister, Hanane, and daughter, Katina tell me today that MD at [facility] spoke in detail with pt and family prior to discharge after recent admission for GI bleed; reportedly stated that she could be restarted on apixaban, but it was up to Karli to decide. Pt refused, saying she did not want to have a stroke; family members believe pt did not fully understand the benefits vs risks of apixaban; pt now says she will agree with restarting apixaban). Code(s): I48.91 - UNSPECIFIED ATRIAL FIBRILLATION Qualifiers: Atrial fibrillation type: unspecified Qualified Code(s): I48.91 - Unspecified atrial fibrillation (5) COPD (chronic obstructive pulmonary disease) Code(s): J44.9 - CHRONIC OBSTRUCTIVE PULMONARY DISEASE, UNSPECIFIED (6) Colon cancer Code(s): C18.9 - MALIGNANT NEOPLASM OF COLON, UNSPECIFIED (7) GI bleed Code(s): K92.2 - GASTROINTESTINAL HEMORRHAGE, UNSPECIFIED Qualifiers: GI bleed type/associated pathology: unspecified gastrointestinal hemorrhage type Qualified Code(s): K92.2 - Gastrointestinal hemorrhage, unspecified (8) Moderate to severe pulmonary hypertension Code(s): I27.2 - OTHER SECONDARY PULMONARY HYPERTENSION * DO NOT USE * (9) Severe mitral regurgitation Code(s): I34.0 - NONRHEUMATIC MITRAL (VALVE) INSUFFICIENCY (10) Breast pain in female Code(s): N64.4 - MASTODYNIA (11) Pericardial effusion Code(s): I31.3 - PERICARDIAL EFFUSION (NONINFLAMMATORY) (12) Anemia Code(s): D64.9 - ANEMIA, UNSPECIFIED Qualifiers: Anemia type: unspecified type Qualified Code(s): D64.9 - Anemia, unspecified cardiac matias stable for discharge
--- NOTE | 2017-09-26 13:39 | PN ---
Progress Note, Physician History of Present Illness: No acute events overnight. Clinically the same. Hemoglobin stable. No stigmata of ongoing gastrointestinal blood loss. - Current Medication List Current Medications: Active Medications Aspirin (Ecotrin -) 81 mg PO DAILY [facility] Last Admin: 09/26/17 10:37 Dose: 81 mg Atorvastatin Calcium (Lipitor -) 40 mg PO HS [facility] Last Admin: 09/25/17 22:20 Dose: 40 mg Carvedilol (Coreg -) 12.5 mg PO BID [facility] Last Admin: 09/26/17 10:37 Dose: 12.5 mg Dorzolamide HCl (Trusopt 2%) 1 drop OU DAILY [facility] Last Admin: 09/26/17 10:37 Dose: 1 drop Furosemide (Lasix Injection -) 40 mg IVPUSH BID@0600,1400 [facility] Last Admin: 09/26/17 06:38 Dose: 40 mg Isosorbide Mononitrate (Imdur -) 30 mg PO DAILY [facility] Last Admin: 09/26/17 10:37 Dose: 30 mg Latanoprost (Xalatan 0.005% Eye Drops -) 1 drop OU [facility] Last Admin: 09/25/17 22:20 Dose: 1 drop Levothyroxine Sodium (Synthroid -) 100 mcg PO DAILY@0700 [facility] Last Admin: 09/26/17 06:38 Dose: 100 mcg Pantoprazole Sodium (Protonix -) 40 mg PO DAILY [facility] Last Admin: 09/26/17 10:37 Dose: 40 mg - Objective Vital Signs: Vital Signs Temperature 98 F 09/26/17 01:00 Pulse Rate 107 H 09/26/17 06:48 Respiratory Rate 20 09/26/17 06:48 Blood Pressure 121/88 09/26/17 06:48 O2 Sat by Pulse Oximetry (%) 99 09/25/17 20:43 Constitutional: Yes: Well Nourished, No Distress, Calm Gastrointestinal: Yes: Soft. No: Tenderness Labs: CBC, BMP 09/26/17 06:15 09/26/17 06:15 INR, PTT INR 1.45 (0.82-1.09) H 09/22/17 15:40 Laboratory Last Values WBC 5.2 K/mm3 (4.0-10.0) 09/26/17 06:15 RBC 3.45 M/mm3 (3.60-5.2) L 09/26/17 06:15 Hgb 9.3 GM/dL (10.7-15.3) L D 09/26/17 06:15 Hct 27.6 % (32.4-45.2) L 09/26/17 06:15 MCV 80.1 fl (80-96) 09/26/17 06:15 MCH 26.8 pg (25.7-33.7) 09/26/17 06:15 MCHC 33.5 g/dl (32.0-36.0) 09/26/17 06:15 RDW 20.9 % (11.6-15.6) H 09/26/17 06:15 Plt Count 123 K/MM3 (134-434) L 09/26/17 06:15 MPV 7.4 fl (7.5-11.1) L 09/26/17 06:15 Absolute Neuts (auto) 3.7 # 09/26/17 06:15 Neutrophils % 70.1 % (42.8-82.8) 09/26/17 06:15 Neutrophils % (Manual) 63.0 % (42.8-82.8) 09/23/17 13:30 Band Neutrophils % 2.0 % (0-10) 09/23/17 13:30 Lymphocytes % 9.9 % (8-40) 09/26/17 06:15 Lymphocytes % (Manual) 24.0 % (8-40) 09/23/17 13:30 Monocytes % 16.0 % (3.8-10.2) H 09/26/17 06:15 Monocytes % (Manual) 7 % (3.8-10.2) 09/23/17 13:30 Eosinophils % 3.0 % (0-4.5) 09/26/17 06:15 Eosinophils % (Manual) 4.0 % (0-4.5) 09/23/17 13:30 Basophils % 1.0 % (0-2.0) 09/26/17 06:15 Nucleated RBC % 0 % (0-0) 09/26/17 06:15 Hypochromia 1+ 09/23/17 13:30 Platelet Estimate Adequate 09/23/17 13:30 Anisocytosis 2+ 09/23/17 13:30 Macrocytosis 2+ 09/22/17 15:40 Schistocytes 1+ 09/22/17 15:40 Retic Count 2.56 % (0.5-1.5) H 09/23/17 07:20 PT with INR 16.1 SEC (10.2-13.0) H 09/22/17 15:40 INR 1.45 (0.82-1.09) H 09/22/17 15:40 PTT (Actin FS) 26.8 SECONDS (24.0-38.9) 09/22/17 15:40 Sodium 133 mmol/L (136-145) L 09/26/17 06:15 Potassium 4.3 mmol/L (3.5-5.1) 09/26/17 06:15 Chloride 94 mmol/L (98-107) L 09/26/17 06:15 Carbon Dioxide 31 mmol/L (21-32) 09/26/17 06:15 Anion Gap 8 (8-16) 09/26/17 06:15 BUN 41 mg/dL (7-18) H 09/26/17 06:15 Creatinine 1.5 mg/dL (0.55-1.02) H 09/26/17 06:15 Creat Clearance w eGFR 33.08 (>60) 09/26/17 06:15 Random Glucose 99 mg/dL (74-106) 09/26/17 06:15 Calcium 8.9 mg/dL (8.5-10.1) 09/26/17 06:15 Phosphorus 4.1 mg/dL (2.5-4.9) 09/24/17 06:00 Magnesium 2.2 mg/dL (1.8-2.4) 09/25/17 05:30 Iron 20 ug/dL (27-139) L 09/23/17 07:20 TIBC 416 ug/dL (250-450) 09/23/17 07:20 Iron Saturation 5 % (15-55) L 09/23/17 07:20 Ferritin 12.4 ng/ml (6.9-282.5) 09/23/17 07:20 Total Bilirubin 1.2 mg/dL (0.2-1.0) H 09/26/17 06:15 AST 13 U/L (15-37) L 09/26/17 06:15 ALT 15 U/L (12-78) 09/26/17 06:15 Alkaline Phosphatase 52 U/L (45-117) 09/26/17 06:15 Creatine Kinase 82 IU/L (26-192) 09/24/17 06:50 Troponin I < 0.03 ng/ml (0.00-0.06) 09/22/17 16:13 B-Natriuretic Peptide 7577.93 pg/ml (5-450) H 09/23/17 13:30 Total Protein 6.9 g/dl (6.4-8.2) 09/26/17 06:15 Albumin 3.5 g/dl (3.4-5.0) 09/26/17 06:15 TSH 4.22 uIU/ml (0.358-3.74) H 09/23/17 08:16 Resin T3 Uptake 37.6 % (30-39) 09/23/17 07:20 Urine Color Straw 09/24/17 09:00 Urine Appearance Clear 09/24/17 09:00 Urine pH 6.0 (5.0-8.0) 09/24/17 09:00 Ur Specific [place] 1.008 (1.001-1.035) 09/24/17 09:00 Urine Protein Negative (NEGATIVE) 09/24/17 09:00 Urine Glucose (UA) Negative (NEGATIVE) 09/24/17 09:00 Urine Ketones Negative (NEGATIVE) 09/24/17 09:00 Urine Blood Negative (NEGATIVE) 09/24/17 09:00 Urine Nitrite Negative (NEGATIVE) 09/24/17 09:00 Urine Bilirubin Negative (<2.0 mg/dL) 09/24/17 09:00 Urine Urobilinogen Negative mg/dL (0.2-1.0) 09/24/17 09:00 Ur Leukocyte Esterase Negative (NEGATIVE) 09/24/17 09:00 Ur Random Sodium 95 MMOL/L 09/24/17 09:00 Ur Random Potassium 23.4 MMOL/L 09/24/17 09:00 Ur Random Chloride 112 MMOL/L 09/24/17 09:00 Urine Creatinine 19.4 mg/dL (20-320) L 09/24/17 09:00 Anti-A Titer Cancelled 09/22/17 15:40 Blood Type B POSITIVE 09/22/17 16:48 Antibody Screen Negative 09/22/17 16:48 Crossmatch See Detail 09/22/17 16:48 Problem List - Problems (1) Microcytic hypochromic anemia Code(s): D50.9 - IRON DEFICIENCY ANEMIA, UNSPECIFIED (2) Diverticulosis Code(s): K57.90 - DVRTCLOS OF INTEST, PART UNSP, W/O PERF OR ABSCESS W/O BLEED (3) AMANDA (acute kidney injury) Code(s): N17.9 - ACUTE KIDNEY FAILURE, UNSPECIFIED (4) Acute on chronic systolic and diastolic heart failure, NYHA class 3 Code(s): I50.43 - ACUTE ON CHRONIC COMBINED SYSTOLIC AND DIASTOLIC HRT FAIL Assessment/Plan Karli has history of significant gastrointestinal bleeding while on Eliquis. We had extensive discussion with the patient and her close friend about Eliquis and risk of bleeding while taking it. The patient wants to be on Eliquis for stroke prevention. We discussed signs and symptoms of gastrointestinal bleeding in detail again. She verbalizes understanding and will closely monitor for these while talking Eliquis. She will seek immediate medical attention if bleeding is suspected.
--- NOTE | 2017-09-26 13:55 | DS ---
Physical Examination Vital Signs: Vital Signs Temperature 98 F 09/26/17 01:00 Pulse Rate 107 H 09/26/17 06:48 Respiratory Rate 20 09/26/17 06:48 Blood Pressure 121/88 09/26/17 06:48 O2 Sat by Pulse Oximetry (%) 99 09/25/17 20:43 Labs: CBC, BMP 09/26/17 06:15 09/26/17 06:15 Discharge Summary Reason For Visit: RIGHT RIB PAIN Current Active Problems AMANDA (acute kidney injury) (Acute) Acute on chronic systolic and diastolic heart failure, NYHA class 3 (Acute) Breast pain in female (Acute) Contusion of rib on right side (Acute) Diverticulosis (Acute) Hypoxia (Acute) Microcytic hypochromic anemia (Acute) Pericardial effusion (Acute) Condition: Improved - Instructions Referrals: Kirsty Hodges MD [Staff Physician] - (Please follow-up with your primary care provider within 1 week ) Jenaro Villanueva MD [Staff Physician] - (Please follow-up with Dr. Villanueva within 1 week for further management and recommendation regarding your colon cancer and to discuss options if you choose to persue treatment. ) Paolo Jiménez MD [Staff Physician] - (Please follow-up with Dr. Jiménez (cardiology) within 1 week for further discussion regarding starting anticoagulation for your atrial fibrilation.) Johanna Tabares MD [Staff Physician] - (Please follow-up with nephrology within 1 week for further management of your elevated creatinine.) Disposition: HOME - Home Medications Comprehensive Discharge Medication List: Ambulatory Orders Levothyroxine [Synthroid -] 100 mcg PO DAILY 03/19/15 Dorzolamide HCl [Trusopt] 1 drop OU DAILY 10/15/15 Atorvastatin Ca [Lipitor] 40 mg PO HS 10/11/16 Carvedilol [Coreg -] 12.5 mg PO BID #60 tablet 10/12/16 Isosorbide Mononitrate [Isosorbide Mononitrate ER] 30 mg PO DAILY 04/07/17 Latanoprost 0.005% Eye Drops [Xalatan 0.005% Eye Drops -] 1 drop OU HS 04/07/17 Pantoprazole Sodium [Protonix] 40 mg PO DAILY 04/07/17 Acetaminophen [Tylenol .Regular Strength -] 650 mg PO Q6H tablet 09/26/17 Furosemide [Lasix] 80 mg PO DAILY #30 tablet 09/26/17 - Discharge Referral Referred to [facility] Yes
--- NOTE | 2017-09-26 17:16 | PN ---
Progress Note, Physician History of Present Illness: Pt seen and examined at bedside. She is awake and alert. She denies shortness of breath. - Current Medication List Current Medications: Active Medications Aspirin (Ecotrin -) 81 mg PO DAILY [facility] Last Admin: 09/26/17 10:37 Dose: 81 mg Atorvastatin Calcium (Lipitor -) 40 mg PO HS [facility] Last Admin: 09/25/17 22:20 Dose: 40 mg Carvedilol (Coreg -) 12.5 mg PO BID [facility] Last Admin: 09/26/17 10:37 Dose: 12.5 mg Dorzolamide HCl (Trusopt 2%) 1 drop OU DAILY [facility] Last Admin: 09/26/17 10:37 Dose: 1 drop Furosemide (Lasix Injection -) 40 mg IVPUSH BID@0600,1400 [facility] Last Admin: 09/26/17 06:38 Dose: 40 mg Isosorbide Mononitrate (Imdur -) 30 mg PO DAILY [facility] Last Admin: 09/26/17 10:37 Dose: 30 mg Latanoprost (Xalatan 0.005% Eye Drops -) 1 drop OU [facility] Last Admin: 09/25/17 22:20 Dose: 1 drop Levothyroxine Sodium (Synthroid -) 100 mcg PO DAILY@0700 [facility] Last Admin: 09/26/17 06:38 Dose: 100 mcg Pantoprazole Sodium (Protonix -) 40 mg PO DAILY [facility] Last Admin: 09/26/17 10:37 Dose: 40 mg - Objective Vital Signs: Vital Signs Temperature 98 F 09/26/17 01:00 Pulse Rate 107 H 09/26/17 06:48 Respiratory Rate 20 09/26/17 12:00 Blood Pressure 121/88 09/26/17 06:48 O2 Sat by Pulse Oximetry (%) 99 09/26/17 12:00 Constitutional: Yes: Calm Eyes: Yes: Conjunctiva Clear HENT: Yes: Atraumatic Cardiovascular: Yes: S1, S2 Respiratory: Yes: CTA Bilaterally Gastrointestinal: Yes: Soft Genitourinary: Yes: WNL Edema: Yes Edema: LLE: Trace, RLE: Trace Neurological: Yes: Oriented Psychiatric: Yes: Oriented Labs: CBC, BMP 09/26/17 06:15 09/26/17 06:15 INR, PTT INR 1.45 (0.82-1.09) H 09/22/17 15:40 Problem List - Problems (1) AMANDA (acute kidney injury) Code(s): N17.9 - ACUTE KIDNEY FAILURE, UNSPECIFIED Assessment/Plan Current Medications Generic Name Dose Route Start Last Admin Trade Name Mason PRN Reason Stop Dose Admin Aspirin 81 mg 09/25/17 10:00 09/26/17 10:37 Ecotrin - PO 81 mg DAILY [facility] Administration Atorvastatin Calcium 40 mg 09/24/17 22:00 09/25/17 22:20 Lipitor - PO 40 mg HS [facility] Administration Carvedilol 12.5 mg 09/24/17 22:00 09/26/17 10:37 Coreg - PO 12.5 mg BID [facility] Administration Dorzolamide HCl 1 drop 09/25/17 10:00 09/26/17 10:37 Trusopt 2% OU 1 drop DAILY [facility] Administration Furosemide 40 mg 09/25/17 06:00 09/26/17 06:38 Lasix Injection - IVPUSH 40 mg BID@0600,1400 [facility] Administration Isosorbide Mononitrate 30 mg 09/25/17 10:00 09/26/17 10:37 Imdur - PO 30 mg DAILY [facility] Administration Latanoprost 1 drop 09/24/17 22:00 09/25/17 22:20 Xalatan 0.005% Eye Drops - OU 1 drop HS [facility] Administration Levothyroxine Sodium 100 mcg 09/25/17 07:00 09/26/17 06:38 Synthroid - PO 100 mcg DAILY@0700 [facility] Administration Pantoprazole Sodium 40 mg 09/25/17 10:00 09/26/17 10:37 Protonix - PO 40 mg DAILY [facility] Administration Impression 1. AMANDA 2. CHF 3. s/p fall 4. a-fib 5. CAD 6. hypothyroidism 7. colon cancer 8. copd 9. ckd Plan - volume status improving - cont to monitor renal function - follow up cxr - monitor hg - ultrasound shows bilateral atrophic kidneys - avoid nsaids Dr Tabares
== END 2017-09-26 17:56 | disposition home or self-care (01) | DRG 682 ==
LOC: FER 15:15 → FM/S 17:50 → J4W 09-23 17:35 → OBSVTOIN 09-24 16:02
PROVIDERS: ADMIT Internal Medicine; ATTEND Registered Nurse
PROC: 30233N1 Transfusion of Nonautologous Red Blood Cells into Peripheral Vein, Percutaneous Approach (ICD-10-PCS; principal; 2017-09-24)
DX: N17.9 Acute kidney failure, unspecified (principal); I50.43 Acute on chronic combined systolic (congestive) and diastolic (congestive) heart failure; C18.9 Malignant neoplasm of colon, unspecified; I13.0 Hypertensive heart and chronic kidney disease with heart failure and stage 1 through stage 4 chronic kidney disease, or unspecified chronic kidney disease; D62 Acute posthemorrhagic anemia; C18.3 Malignant neoplasm of hepatic flexure; S20.211A Contusion of right front wall of thorax, initial encounter; Z95.5 Presence of coronary angioplasty implant and graft; I25.10 Atherosclerotic heart disease of native coronary artery without angina pectoris; E78.5 Hyperlipidemia, unspecified; N18.9 Chronic kidney disease, unspecified; I27.20 Pulmonary hypertension, unspecified; J43.9 Emphysema, unspecified; E03.9 Hypothyroidism, unspecified; Z87.891 Personal history of nicotine dependence; I48.91 Unspecified atrial fibrillation; R09.02 Hypoxemia; I25.2 Old myocardial infarction; W01.198A Fall on same level from slipping, tripping and stumbling with subsequent striking against other object, initial encounter; Y93.89 Activity, other specified; Y92.018 Other place in single-family (private) house as the place of occurrence of the external cause; Y99.8 Other external cause status; D63.8 Anemia in other chronic diseases classified elsewhere; I34.0 Nonrheumatic mitral (valve) insufficiency; N64.4 Mastodynia; K29.60 Other gastritis without bleeding; Z88.0 Allergy status to penicillin; K57.30 Diverticulosis of large intestine without perforation or abscess without bleeding
CPT/HCPCS: 36415; 36430; 71045-TC-FY; 71250-TC; 76775-TC; 80048; 80053; 81003; 82436; 82550; 82570; 82728; 83540; 83550; 83735; 83880; 84100; 84133; 84300; 84436; 84443; 84479; 84484; 85025; 85027; 85044; 85610; 85730; 86850; 86900; 86901; 86922; 87086; 87186; 93005; 93306-TC; 97116-GP; 97162-GP; 99284-25; G0378; J7030; P9038; P9058

== ENCOUNTER 2019-03-12 13:29 | Inpatient (IN) | payer BC, OTHER ==
--- NOTE | 2019-03-12 14:07 | PDOC ---
History of Present Illness - General Chief Complaint: Lightheaded Stated Complaint: Weakness Time Seen by Provider: 03/12/19 13:46 History Source: Patient Exam Limitations: No Limitations - History of Present Illness Initial Comments: 03/12/19 14:02 83 yo female pmh of HTN, HLD, CHF, CAD, NSTEMI s/p stent placement, A-fib (on AC , took morning dose today) COPD, Cancerous colon polyp removed (no chemo/ radiation) presents to the ED 1 week of worsening dizziness and weakness. Pt admits to progressive weakness, pallor and dark stools over the last week. Pt had episode of GI bleed 2018. Pt states she is unable to complete her ADLs at home including cooking and showering however she has help from her sister. Denies F/C/V/N, Cp, palpitations, SOB, SCHMID, ear pain, changes in urinary habits, diarrhea. Last colonoscopy 2 years ago for polypepctomy. Past History - Past Medical History Allergies/Adverse Reactions: Allergies Allergy/AdvReac Type Severity Reaction Status Date / Time cephalexin [Cephalexin] Allergy Intermediate Rash Verified 03/12/19 13:40 clindamycin Allergy Intermediate Rash Verified 03/12/19 13:40 naproxen [From Naprosyn] Allergy Intermediate ANKLES Verified 03/12/19 13:40 SWELLED UP Penicillins Allergy Intermediate Rash Verified 03/12/19 13:40 diphenhydramine HCl AdvReac CAN'T Verified 03/12/19 13:40 [From Benadryl] HAVE,HAS GLAUCOMA Home Medications: Ambulatory Orders Atorvastatin Ca [Lipitor] 40 mg PO HS 10/19/17 Carvedilol [Coreg] 12.5 mg PO BID 10/19/17 Latanoprost 0.005% Eye Drops [Xalatan 0.005% Eye Drops -] 1 drop OU HS 10/19/17 Levothyroxine Sodium [Synthroid] 100 mcg PO DAILY 10/19/17 Isosorbide Mononitrate [Isosorbide Mononitrate ER] 30 mg PO DAILY 11/25/17 Apixaban [Eliquis -] 2.5 mg PO BID #60 tablet 12/04/17 Furosemide [Lasix -] 80 mg PO BID@0600,1400 03/12/19 Levothyroxine [Synthroid -] 88 mcg PO DAILY #30 tablet 03/12/19 Lisinopril 10 mg PO DAILY 03/12/19 Anemia: Yes Asthma: No Cancer: Yes (colon acncer) Cardiac Disorders: Yes (STENT) CVA: No COPD: Yes CHF: Yes DVT: No Dementia: No Diabetes: No GI Disorders: Yes (GERD) Disorders: No HTN: Yes Hypercholesterolemia: Yes Liver Disease: No Seizures: No Thyroid Disease: Yes () - Surgical History Abdominal Surgery: No Appendectomy: No Cardiac Surgery: Yes (STENT 10/27/15) Cholecystectomy: No Lung Surgery: No Neurologic Surgery: No Orthopedic Surgery: No - Psycho Social/Smoking Cessation Hx Smoking History: Former smoker Have you smoked in the past 12 months: No Number of Cigarettes Smoked Daily: 40 If you are a former smoker, when did you quit?: 23 YEARS AGO Information on smoking cessation initiated: No Hx Alcohol Use: No Drug/Substance Use Hx: No Substance Use Type: None Hx Substance Use Treatment: No Review of Systems - Review of Systems Constitutional: No: Chills, Fever HEENTM: No: Double Vision Respiratory: No: Shortness of Breath Cardiac (ROS): No: Chest Pain, Edema ABD/GI: Yes: Other (dark stools). No: Constipated, Diarrhea, Nausea, Poor Appetite, Poor Fluid Intake, Vomiting : No: Burning, Dysuria, Frequency, Flank Pain Neurological: Yes: Weakness (generalized), Dizziness. No: Headache, Numbness, Paresthesia *Physical Exam - Vital Signs Last Vital Signs Temp Pulse Resp BP Pulse Ox 98.2 F 85 16 98/60 99 03/12/19 13:37 03/12/19 13:37 03/12/19 13:37 03/12/19 13:37 03/12/19 13:37 - Physical Exam General Appearance: Yes: Nourished, Appropriately Dressed, Apparent Distress ( weak) HEENT: positive: EOMI, RAUL, Normal Voice, Pale Conjunctivae, Hearing Grossly Normal. negative: Scleral Icterus (R), Scleral Icterus (L) Neck: positive: Supple. negative: Carotid bruit, Rigidity Respiratory/Chest: positive: Lungs Clear, Normal Breath Sounds. negative: Respiratory Distress, Accessory Muscle Use, Crackles, Rales, Rhonchi, Stridor, Wheezing Cardiovascular: positive: Regular Rhythm, Regular Rate, S1, S2. negative: Edema , JVD, Murmur Vascular Pulses: Dorsalis-Pedis (R): 4+, Doralis-Pedis (L): 4+ Gastrointestinal/Abdominal: positive: Flat, Soft. negative: Pulsatile Mass, Protuberent, Distended, Guarding, Rebound, Tenderness Rectal Exam: positive: normal rectal tone, melena, heme positive stool. 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 negative: Facial Droop, Numbness, Sensory Deficit, Confused, Disoriented ED Treatment Course - LABORATORY CBC & Chemistry Diagram: 03/13/19 06:00 03/13/19 06:00 Medical Decision Making - Medical Decision Making 03/12/19 16:15 83 yo female pmh of HTN, HLD, CHF, CAD, NSTEMI s/p stent placement, A-fib (on AC , took morning dose today) COPD, Cancerous colon polyp removed (no chemo/ radiation) presents to the ED 1 week of worsening dizziness and weakness. Pt admits to progressive weakness, pallor and dark stools over the last week. Pt had episode of GI bleed 2018. Pt states she is unable to complete her ADLs at home including cooking and showering however she has help from her sister. Denies F/C/V/N, Cp, palpitations, SOB, SCHMID, ear pain, changes in urinary habits, diarrhea. Last colonoscopy 2 years ago for polypepctomy. DDX INLT: failure to thrive, poor PO intake, GI bleed/anemia Hbg 5.5 and positive stool occ 2 units PRBCs, 1 unit platelets and protonix drip ordered pt noted to have systolic BP in the 80s but MAPs maintained above 65 No central line/pressors required at this time since pt has not received blood products, not adequately volume resuscitated Pt AOX3, alert and in no acute distress Dr. Marcum consulted, agrees with plan and also recommends ICU admission ICU resident accepts pt and Hospitalist team made aware Discharge - Discharge Information Problems reviewed: Yes Clinical Impression/Diagnosis: GI bleed Condition: Fair - Admission Yes - Follow up/Referral - Patient Discharge Instructions - Post Discharge Activity
--- NOTE | 2019-03-12 14:32 | PDOC ---
Attending Attestation - Resident Resident Name: Kory Alfredo - ED Attending Attestation I have performed the following: I have examined & evaluated the patient, The case was reviewed & discussed with the resident, I agree w/resident's findings & plan, Exceptions are as noted - HPI HPI: 03/12/19 14:40 Ms. Leiva is an 82 yo female with PMH HTN, HLD, CHF, CAD, NSTEMI s/p stent placement, A-fib (on Eliquis), COPD, cancerous colon polyp removed (no chemo/ radiation) p/w a complaint of generalized weakness, dizziness Patient denies chest pain Patient denies shortness of breath Patient has been tolerating p.o., this morning had oatmeal for breakfast She has noted dark appearing stools Patient denies abdominal pain 03/12/19 15:51 - Physicial Exam PE: 03/12/19 14:29 GENERAL: The patient is in no acute distress, pale and weak appearing. HEENT: Pale conjunctiva, Ears normal, nares patent, oropharynx clear without exudates. Moist mucous membranes. NECK: Normal range of motion, supple LUNGS: Breath sounds equal, clear to auscultation bilaterally. No wheezes, and no crackles. HEART:Regular rate and rhythm, normal S1 and S2 without murmur, rub or gallop. ABDOMEN: Soft, nontender, normoactive bowel sounds. RECTAL: per Dr. Alfredo EXTREMITIES: Normal range of motion, no edema. NEUROLOGICAL: Cranial nerves II through XII grossly intact. Normal speech. No focal neurological deficits. SKIN: Warm, Dry, normal turgor, no rashes or lesions noted. 03/12/19 14:43 03/12/19 15:52 - Critical Care Time Total Critical Care Time: 60 Critical Care Statement: The care of this patient involved high complexity decision making to prevent further life threatening deterioration of the patient 's condition and/or to evaluate & treat vital organ system(s) failure or risk of failure. - Medical Decision Making 03/12/19 14:41 EKG: Afib rate of 93 bpm, Right axis deviation, no st elevation or depression, t wave inversions noted v2-v6, II, III, aVF 03/12/19 15:51 Laboratory Tests 11/22/19 11/22/19 11/22/19 14:30 14:30 14:30 WBC 3.0 L Hgb 5.5 L* Hct 17.2 L D Plt Count 115 L D INR 2.78 H Stool Occult Blood Positive 03/12/19 16:[address] Coleman In addition to PRBC, would add platelets 03/12/19 16:59 Dr Coleman is seeing this patient in the ER Agrees pt my benefit from higher level of care Pt seen by ICU resident Will admit to ICU Platelets being hung PRBC pending Protonix gtt Clinical impression: UGIB, initial presentation Hypotension, initial presentation Symptomatic anemia, initial presentation
[2019-03-12 15:27] LABS: BASO % 2.1 % (0-2.0); EOS % 4.4 % (0-4.5); HEMATOCRIT 17.2 % (32.4-45.2); LYMPH % 9.4 % (8-40); MCH 29.2 pg (25.7-33.7); MCHC 32.1 g/dl (32.0-36.0); MEAN PLT VOLUME 8.4 fl (7.5-11.1); MONO % 10.1 % (3.8-10.2); PLATELET COUNT 115 K/MM3 (134-434); RBC 1.89 M/mm3 (3.60-5.2)
[2019-03-12 15:30] LABS: HEMOGLOBIN 5.5 GM/dL (10.7-15.3)
[2019-03-12 15:36] LABS: INR 2.78 (0.83-1.09); PROTHROMBIN TIME (PATIENT) 33.1 SEC (9.7-13.0)
[2019-03-12 15:39] LABS: ACTIVATED PTT 37.6 SECONDS (25.2-36.5)
[2019-03-12] MEDS ORDERED: PANTOPRAZOLE SODIUM 40 MG VIAL ONE (15:48)
[2019-03-12 16:08] LABS: ALBUMIN 2.9 g/dl (3.4-5.0); BILIRUBIN,TOTAL 0.9 mg/dL (0.2-1); BLOOD UREA NITROGEN 82.1 mg/dL (7-18); CALCIUM 8.7 mg/dL (8.5-10.1); CREATININE 2.2 mg/dL (0.55-1.3); MAGNESIUM 1.9 mg/dL (1.8-2.4); PHOSPHOROUS 5.8 mg/dL (2.5-4.9); POTASSIUM 3.8 mmol/L (3.5-5.1)
[2019-03-12] MEDS: PANTOPRAZOLE SODIUM 80 MG in SODIUM CHLORIDE 100 ML IVPB SCH (16:11)
--- NOTE | 2019-03-12 17:06 | PN ---
Teaching Attending Note Name of Resident: Lance Tesfaye ATTENDING PHYSICIAN STATEMENT I saw and evaluated the patient. I reviewed the resident's note and discussed the case with the resident. I agree with the resident's findings and plan as documented. SUBJECTIVE: Patient is an 83 y/o Female with a PMhx of atrial fibrillation (on Eliquis), HTN, COPD, NSTEMI s/p stent placement, CAD, HFpEF (EF55% 11/2017), and colon cancer who presented to ED.for having generalized weakness x 1 week. Patient stated that she noticed dark, tarry stools. Patient lives by herself and is very active. while in Ed. was found to have low blood pressure and positive for tarry stool, with shortness of breath. OBJECTIVE: Vital Signs Temperature 98.2 F 03/12/19 13:37 Pulse Rate 94 H 03/12/19 15:28 Respiratory Rate 22 H 03/12/19 15:28 Blood Pressure 86/56 L 03/12/19 15:28 O2 Sat by Pulse Oximetry (%) 96 03/12/19 16:39 GENERAL: The patient is awake, alert, and fully oriented, in mild distress. HEAD: Normal with no signs of trauma. EYES: PERRL, extraocular movements intact, sclera anicteric, conjunctiva clear. ENT: Ears normal, oropharynx clear without exudates, moist mucous membranes. NECK: Trachea midline, full range of motion, supple. LUNGS: Breath sounds equal, clear to auscultation bilaterally, no wheezes, no crackles, no accessory muscle use. HEART: Irregularly-irregular , rate of 94 , S1, S2 positive, ALEJANDRO 3/6 lsb, NO rub or gallop. ABDOMEN: Soft, nt,nd, normoactive bowel sounds, no guarding, no rebound, no hepatosplenomegaly, no masses. EXTREMITIES: 2+ pulses, warm, well-perfused, no edema. NEUROLOGICAL: Cranial nerves II through XII grossly intact. Normal speech, gait not observed. PSYCH: Normal mood, normal affect. SKIN: Warm, dry, normal turgor, no rashes or lesions noted CBCD WBC 3.0 K/mm3 (4.0-10.0) L 03/12/19 14:30 RBC 1.89 M/mm3 (3.60-5.2) L 03/12/19 14:30 Hgb 5.5 GM/dL (10.7-15.3) L* 03/12/19 14:30 Hct 17.2 % (32.4-45.2) L D 03/12/19 14:30 MCV 91.0 fl (80-96) 03/12/19 14:30 MCHC 32.1 g/dl (32.0-36.0) 03/12/19 14:30 RDW 21.0 % (11.6-15.6) H 03/12/19 14:30 Plt Count 115 K/MM3 (134-434) L D 03/12/19 14:30 MPV 8.4 fl (7.5-11.1) D 03/12/19 14:30 CMP Sodium 138 mmol/L (136-145) 03/12/19 14:30 Potassium 3.8 mmol/L (3.5-5.1) 03/12/19 14:30 Chloride 100 mmol/L (98-107) 03/12/19 14:30 Carbon Dioxide 29 mmol/L (21-32) 03/12/19 14:30 Anion Gap 9 MMOL/L (8-16) 03/12/19 14:30 BUN 82.1 mg/dL (7-18) H 03/12/19 14:30 Creatinine 2.2 mg/dL (0.55-1.3) H 03/12/19 14:30 Random Glucose 109 mg/dL (74-106) H 03/12/19 14:30 Calcium 8.7 mg/dL (8.5-10.1) 03/12/19 14:30 Total Bilirubin 0.9 mg/dL (0.2-1) 03/12/19 14:30 AST 7 U/L (15-37) L 03/12/19 14:30 ALT 7 U/L (13-61) L 03/12/19 14:30 Alkaline Phosphatase 42 U/L (45-117) L 03/12/19 14:30 Total Protein 6.0 g/dl (6.4-8.2) L 03/12/19 14:30 Albumin 2.9 g/dl (3.4-5.0) L 03/12/19 14:30 CARDIAC ENZYMES Creatine Kinase 45 U/L (26-192) 03/12/19 14:30 Troponin I 0.02 ng/ml (0.00-0.05) 03/12/19 14:30 Current Medications Generic Name Dose Route Start Last Admin Trade Name Mason PRN Reason Stop Dose Admin Pantoprazole Sodium 80 mg/ 100 mls @ 10 mls/hr 03/12/19 15:45 03/12/19 16:11 Sodium Chloride IVPB 10 mls/hr Q10H LUKE Administration 8 MG/HR Home Medications Medication Instructions Recorded Atorvastatin Ca [Lipitor] 40 mg PO HS 10/19/17 Carvedilol [Coreg] 12.5 mg PO BID 10/19/17 Latanoprost 0.005% Eye Drops 1 drop OU HS 10/19/17 [Xalatan 0.005% Eye Drops -] Levothyroxine Sodium [Synthroid] 100 mcg PO DAILY 10/19/17 Isosorbide Mononitrate [Isosorbide 30 mg PO DAILY 11/25/17 Mononitrate ER] Apixaban [Eliquis -] 2.5 mg PO BID #60 tablet 12/04/17 Furosemide [Lasix -] 80 mg PO BID@0600,1400 03/12/19 Lisinopril 10 mg PO DAILY 03/12/19 Laboratory Tests 03/12/19 03/12/19 03/12/19 14:30 14:30 14:30 WBC 3.0 L RBC 1.89 L Hgb 5.5 L* Plt Count 115 L D PT with INR 33.10 H INR 2.78 H PTT (Actin FS) 37.6 H BUN 82.1 H Creatinine 2.2 H Stool Occult Blood 03/12/19 14:30 WBC RBC Hgb Plt Count PT with INR INR PTT (Actin FS) BUN Creatinine Stool Occult Blood Positive ASSESSMENT AND PLAN: Patient is an 82yo Female with PMHx D.CHF, Afib on NOac , colon ca s/p resection, COPD, CAD s/p stent presented to the ER with acute GIB #Acute GIB : on Protonix drip, HOLD eLIQUIS for now, type and screen for 2 units , FFp, Prbc, lasix in b/t transfusion. GI , s/p platelet transfusion i n ED. Colonoscopy and further procedure as per GI #ARF prerenal due to Acute GIB # Acute on CHronic diastolic CHF, lasix in b/t transfusion , cardio dr escudero # Hx of afib: dc Eliquis since having acute GIB , hold bp meds for now, since hypotensive # hx of Colon ca s/p resection # hypothyroid- continue levothyroxine # CAD s/p stent- not on any antiplatelet due to GI bleeding. # hx of 7th rib fracture # hx of UTI Klebsiella Pneumoniae npo for now GI px: protonix drip DVT px: Scds
--- NOTE | 2019-03-12 17:07 | HP ---
CHIEF COMPLAINT: Generalized Weakness PCP: HISTORY OF PRESENT ILLNESS: Pt is an 83 y/o F with a significant past medical history of atrial fibrillation (on Eliquis), HTN, COPD, NSTEMI s/p stent placement, CAD, HFpEF ( EF55% 11/2017), and colon cancer who presented to [facility] due to 1 week of generalized weakness. Pt states during this time period she also has noticed dark, tarry stools. Pt is normally active and ambulates on her own. Pt reportedly underwent an EGD and colonoscopy w/ Dr Minor in March of 2017 where she was found to have a polyp which was found to be adenocarcinoma. Pt was advised to follow up with Dr Minor for a repeat colonoscopy in 6 weeks however patient did not follow up. Endorses tingling in her lower extremities. Denies chest pain, loss of consciousness, or palpitations. Endorses shortness of breath and abdominal pain. SocialHx- Denies smoking or alcohol use. SurgHx- Polypectomy ER course was notable for: (1) hgb 5.5 (2) BP 80/55 (3) Allergies cephalexin [Cephalexin] Allergy (Intermediate, Verified 03/12/19 13:40) Rash clindamycin Allergy (Intermediate, Verified 03/12/19 13:40) Rash naproxen [From Naprosyn] Allergy (Intermediate, Verified 03/12/19 13:40) ANKLES SWELLED UP Penicillins Allergy (Intermediate, Verified 03/12/19 13:40) Rash diphenhydramine HCl [From Benadryl] Adverse Reaction (Verified 03/12/19 13:40) CAN'T HAVE,HAS GLAUCOMA HOME MEDICATIONS: Home Medications Medication Instructions Recorded Atorvastatin Ca [Lipitor] 40 mg PO HS 10/19/17 Carvedilol [Coreg] 12.5 mg PO BID 10/19/17 Latanoprost 0.005% Eye Drops 1 drop OU HS 10/19/17 [Xalatan 0.005% Eye Drops -] Levothyroxine Sodium [Synthroid] 100 mcg PO DAILY 10/19/17 Isosorbide Mononitrate [Isosorbide 30 mg PO DAILY 11/25/17 Mononitrate ER] Apixaban [Eliquis -] 2.5 mg PO BID #60 tablet 12/04/17 Furosemide [Lasix -] 80 mg PO BID@0600,1400 11/22/19 Lisinopril 10 mg PO DAILY 03/12/19 REVIEW OF SYSTEMS CONSTITUTIONAL: Absent: fever, chills, diaphoresis, generalized weakness, malaise, loss of appetite, weight change HEENT: Absent: rhinorrhea, nasal congestion, throat pain, throat swelling, difficulty swallowing, mouth swelling, ear pain, eye pain, visual changes CARDIOVASCULAR: Absent: chest pain, syncope, palpitations, irregular heart rate, lightheadedness , peripheral edema RESPIRATORY: Absent: cough, shortness of breath, dyspnea with exertion, orthopnea, wheezing, stridor, hemoptysis GASTROINTESTINAL: PRESENT: abdominal pain, nausea, vomiting, melena GENITOURINARY: Absent: dysuria, frequency, urgency, hesitancy, hematuria, flank pain, genital pain MUSCULOSKELETAL: Absent: myalgia, arthralgia, joint swelling, back pain, neck pain SKIN: Absent: rash, itching, pallor HEMATOLOGIC/IMMUNOLOGIC: Absent: easy bleeding, easy bruising, lymphadenopathy, frequent infections ENDOCRINE: Absent: unexplained weight gain, unexplained weight loss, heat intolerance, cold intolerance NEUROLOGIC: Absent: headache, focal weakness or paresthesias, dizziness, unsteady gait, seizure, mental status changes, bladder or bowel incontinence PSYCHIATRIC: Absent: anxiety, depression, suicidal or homicidal ideation, hallucinations. PHYSICAL EXAMINATION Vital Signs - 24 hr 03/12/19 03/12/19 03/12/19 13:37 15:00 15:28 Temperature 98.2 F Pulse Rate 85 Pulse Rate [ 91 H 94 H Radial] Respiratory 16 22 H 22 H Rate Blood Pressure 98/60 Blood Pressure 80/55 L 86/56 L [Right Arm] O2 Sat by Pulse 99 94 L 97 Oximetry (%) 03/12/19 16:39 Temperature Pulse Rate Pulse Rate [ Radial] Respiratory Rate Blood Pressure Blood Pressure [Right Arm] O2 Sat by Pulse 96 Oximetry (%) GENERAL: AAOx3, Mild distress HEAD: Normal with no signs of trauma. EYES: EOMI Sclera Clear EARS, NOSE, THROAT: Dry Mucous membranes LUNGS: Crackles bilaterally HEART: Irregular S1S2 ABDOMEN: Tender to palpation, no guarding or rigidity. RECTAL: No masses seen, No external hemorrhoids, fissures, or blood around anus. Loose stool in rectal vault. LOWER EXTREMITIES: No CCE NEUROLOGICAL: Cranial nerves II-XII intact. PSYCHIATRIC: Cooperative. Good eye contact. Appropriate mood and affect. SKIN: Pale. Echymosis right greater trochanter area. Laboratory Results - last 24 hr 03/12/19 03/12/19 03/12/19 14:30 14:30 14:30 WBC 3.0 L RBC 1.89 L Hgb 5.5 L* Hct 17.2 L D MCV 91.0 MCH 29.2 D MCHC 32.1 RDW 21.0 H Plt Count 115 L D MPV 8.4 D Absolute Neuts (auto) 2.2 Neutrophils % 74.0 Lymphocytes % 9.4 D Monocytes % 10.1 Eosinophils % 4.4 Basophils % 2.1 H Nucleated RBC % 0 PT with INR 33.10 H INR 2.78 H PTT (Actin FS) 37.6 H Sodium Potassium Chloride Carbon Dioxide Anion Gap BUN Creatinine Est GFR (CKD-EPI)AfAm Est GFR (CKD-EPI)NonAf Random Glucose Calcium Phosphorus Magnesium Total Bilirubin AST ALT Alkaline Phosphatase Creatine Kinase 45 Troponin I 0.02 Total Protein Albumin TSH Stool Occult Blood Blood Type Antibody Screen Crossmatch 03/12/19 03/12/19 03/12/19 14:30 14:30 14:30 WBC RBC Hgb Hct MCV MCH MCHC RDW Plt Count MPV Absolute Neuts (auto) Neutrophils % Lymphocytes % Monocytes % Eosinophils % Basophils % Nucleated RBC % PT with INR INR PTT (Actin FS) Sodium 138 Potassium 3.8 Chloride 100 Carbon Dioxide 29 Anion Gap 9 BUN 82.1 H Creatinine 2.2 H Est GFR (CKD-EPI)AfAm 22.93 Est GFR (CKD-EPI)NonAf 19.79 Random Glucose 109 H Calcium 8.7 Phosphorus 5.8 H Magnesium 1.9 Total Bilirubin 0.9 AST 7 L ALT 7 L Alkaline Phosphatase 42 L Creatine Kinase Troponin I Total Protein 6.0 L Albumin 2.9 L TSH 1.24 Stool Occult Blood Positive Blood Type B POSITIVE Antibody Screen Negative Crossmatch See Detail ASSESSMENT/PLAN: Pt is an 83 y/o F with a significant past medical history of atrial fibrillation (on Eliquis), HTN, COPD, NSTEMI s/p stent placement, CAD, HFpEF ( EF55% 11/2017), and colon cancer who presented to [facility] due to 1 week of generalized weakness. #Anemia likely 2/2 Upper Gastrointestinal bleed -hgb 5.5 -BUN 82.1, likely source from upper G.I tract -FOBT+ -Reported history of tarry stool -Placed on protonix drip -Will transfuse PRBC along with plateelts as hemoglobin 5.5, Platelet count 115 -G.I on board Dr Marcum---> Plan for EGD and Colonoscopy. Will also need CT and CEA when renal function permits to exclude liver metastases or local evidence of colon cancer. -Lasix 20 I.V in between blood transfusions as pt has history of dCHF. -Trend CBC -Transfuse < 8.0 in light of CAD history. #Atrial Fibrillation -Will hold Eliquis in light of bleed. #CAD -Will hold Plavix in light of bleeding #HTN -Will hold Antihypertensive medications in light of hypotension #FEN -No standing fluids -Monitor Electrolytes -NPO except meds and ice chips #DVT ppx: -SCDs #Dispo: -ICU Visit type - Emergency Visit Emergency Visit: Yes ED Registration Date: 03/12/19 Care time: The patient presented to the Emergency Department on the above date and was hospitalized for further evaluation of their emergent condition. - New Patient This patient is new to me today: Yes Date on this admission: 03/12/19 - Critical Care Critical Care patient: No ATTENDING PHYSICIAN STATEMENT I saw and evaluated the patient. I reviewed the resident's note and discussed the case with the resident. I agree with the resident's findings and plan as documented. SUBJECTIVE: OBJECTIVE: ASSESSMENT AND PLAN:
--- NOTE | 2019-03-12 17:17 | CON.GI ---
Consult Consult Specialty:: Gastroenterology Referred by:: Kory Alfredo MD Reason for Consultation:: Melena, Hb 5 - History of Present Illness Chief Complaint: Black stools for the past week History of Present Illness: 83F on Eliquis of A fib has been having black loose stools for the past week. She has grown increaisngly weaker and dizzy prompting her to come to the ER. She and her sister report that she had a similar presentation with Hb [address] Celeste perfromed both an EGD and a colonoscopy on 04/10/17. The EGD revealed a hiatal hernia and antral erosions. The colonoscopy discovered a 1.5cm hepatic flexure polyp that revealed adenocarcinoma within a tubular adenoma with the tumor extending to within 1.5mm of the excision margin. He also noted ischemic changes in the right colon. He advised a repeat colonoscopy within 6 weeks but she failed to followup and has not had any repeat colonoscopies. CT revealed small liver hypolucencies that were not commented upon on a [address] scan. She has diffuse cardiovascular in these imaging and a right sided aortic arch and gallstones. CEA = 3.0 in 2018. She has asked me to be her GI legal consultant. - History Source History Provided By: Patient, Medical Record Limitations to Obtaining History: No Limitations - Past Medical History Cardio/Vascular: Yes: AFIB, CAD (multiple coronary stents at [facility] after NSTEMI 2016), CHF (diastolic , ech EFs 40-55% but has severe MR), HTN, Hyperlipdemia, PR (NSTEMI 2016), Mitral Insufficiency (serever MR and TR. Valve replacement was advised at [facility] but she refused.), Murmur, Pulmonary Hypertension Pulmonary: Yes: COPD, O2 Dependent Gastrointestinal: Yes: Cancer (adenocarcinoma within a 1.5cm hepatic flexure tubular adenoma removed during 04/06 colonoscopy ( 1.5mm to excision margin)), Constipation, Diverticulosis, Gastritis (04/06 EGD), GERD, Hiatal Hernia Hepatobiliary: Yes: Cholelithiasis Renal/: Yes: Renal Inusuff Heme/Onc: Yes: Anemia Psych: Yes: Anxiety Musculoskeletal: Yes: Other (lumbar disc disease and fractures, rib fractures) Endocrine: Yes: Hypothyroidism Additional Medical History: Glaucoma - Past Surgical History Past Surgical History: Yes: Cataract Removal (left), Colonoscopy, Stent ( coronary stenst 2015 [facility]), Upper Endoscopy - Alcohol/Substance Use Hx Alcohol Use: Yes (wine semiregularly) History of Substance Use: reports: None - Smoking History Smoking history: Former smoker Have you smoked in the past 12 months: No If you are a former smoker, when did you quit?: 1994 - Social History Usual Living Arrangement: Alone (never ) ADL: Independent Occupation: retired form [employer] Place of : [facility] History of Recent Travel: No Home Medications - Allergies Allergies/Adverse Reactions: Allergies Allergy/AdvReac Type Severity Reaction Status Date / Time cephalexin [Cephalexin] Allergy Intermediate Rash Verified 03/12/19 13:40 clindamycin Allergy Intermediate Rash Verified 03/12/19 13:40 naproxen [From Naprosyn] Allergy Intermediate ANKLES Verified 03/12/19 13:40 SWELLED UP Penicillins Allergy Intermediate Rash Verified 03/12/19 13:40 diphenhydramine HCl AdvReac CAN'T Verified 03/12/19 13:40 [From Benadryl] HAVE,HAS GLAUCOMA - Home Medications Home Medications: Ambulatory Orders Atorvastatin Ca [Lipitor] 40 mg PO HS 10/19/17 Carvedilol [Coreg] 12.5 mg PO BID 10/19/17 Latanoprost 0.005% Eye Drops [Xalatan 0.005% Eye Drops -] 1 drop OU HS 10/19/17 Levothyroxine Sodium [Synthroid] 100 mcg PO DAILY 10/19/17 Isosorbide Mononitrate [Isosorbide Mononitrate ER] 30 mg PO DAILY 11/25/17 Apixaban [Eliquis -] 2.5 mg PO BID #60 tablet 12/04/17 Furosemide [Lasix -] 80 mg PO BID@0600,1400 03/12/19 Lisinopril 10 mg PO DAILY 03/12/19 Family Medical History Family Hx Diabetes: Mother Family Hx Nuerologic Problems: Mother ( after CVA age 76, had DM) Other Family History: F 88 natural causes Review of Systems - Review of Systems Constitutional: reports: Loss of Appetite, Malaise, Weakness Eyes: reports: No Symptoms HENT: reports: No Symptoms Neck: reports: No Symptoms Cardiovascular: reports: Palpitations, Shortness of Breath Respiratory: reports: Exercise Intolerance Gastrointestinal: reports: Constipation, Melena Genitourinary: reports: No Symptoms Musculoskeletal: reports: Back Pain Physical Exam-GI Vital Signs: Vital Signs Temperature 98.2 F 03/12/19 13:37 Pulse Rate 88 03/12/19 15:40 Respiratory Rate 20 03/12/19 15:40 Blood Pressure 83/64 L 03/12/19 15:40 O2 Sat by Pulse Oximetry (%) 96 03/12/19 16:39 CBC,CMP WBC 3.0 K/mm3 (4.0-10.0) L 03/12/19 14:30 RBC 1.89 M/mm3 (3.60-5.2) L 03/12/19 14:30 Hgb 5.5 GM/dL (10.7-15.3) L* 03/12/19 14:30 Hct 17.2 % (32.4-45.2) L D 03/12/19 14:30 MCV 91.0 fl (80-96) 03/12/19 14:30 MCH 29.2 pg (25.7-33.7) D 03/12/19 14:30 MCHC 32.1 g/dl (32.0-36.0) 03/12/19 14:30 RDW 21.0 % (11.6-15.6) H 03/12/19 14:30 Plt Count 115 K/MM3 (134-434) L D 03/12/19 14:30 MPV 8.4 fl (7.5-11.1) D 03/12/19 14:30 Absolute Neuts (auto) 2.2 K/mm3 (1.5-8.0) 03/12/19 14:30 Neutrophils % 74.0 % (42.8-82.8) 03/12/19 14:30 Lymphocytes % 9.4 % (8-40) D 03/12/19 14:30 Monocytes % 10.1 % (3.8-10.2) 03/12/19 14:30 Eosinophils % 4.4 % (0-4.5) 03/12/19 14:30 Basophils % 2.1 % (0-2.0) H 03/12/19 14:30 Nucleated RBC % 0 % (0-0) 03/12/19 14:30 Sodium 138 mmol/L (136-145) 03/12/19 14:30 Potassium 3.8 mmol/L (3.5-5.1) 03/12/19 14:30 Chloride 100 mmol/L (98-107) 03/12/19 14:30 Carbon Dioxide 29 mmol/L (21-32) 03/12/19 14:30 Anion Gap 9 MMOL/L (8-16) 03/12/19 14:30 BUN 82.1 mg/dL (7-18) H 03/12/19 14:30 Creatinine 2.2 mg/dL (0.55-1.3) H 03/12/19 14:30 Est GFR (CKD-EPI)AfAm .03/12/19 14:30 Est GFR (CKD-EPI)NonAf .79 03/12/19 14:30 Random Glucose 109 mg/dL (74-106) H 03/12/19 14:30 Calcium 8.7 mg/dL (8.5-10.1) 03/12/19 14:30 Phosphorus 5.8 mg/dL (2.5-4.9) H 03/12/19 14:30 Magnesium 1.9 mg/dL (1.8-2.4) 03/12/19 14:30 Total Bilirubin 0.9 mg/dL (0.2-1) 03/12/19 14:30 AST 7 U/L (15-37) L 03/12/19 14:30 ALT 7 U/L (13-61) L 03/12/19 14:30 Alkaline Phosphatase 42 U/L (45-117) L 03/12/19 14:30 Creatine Kinase 45 U/L (26-192) 03/12/19 14:30 Troponin I 0.02 ng/ml (0.00-0.05) 03/12/19 14:30 Total Protein 6.0 g/dl (6.4-8.2) L 03/12/19 14:30 Albumin 2.9 g/dl (3.4-5.0) L 03/12/19 14:30 TSH 1.24 uIU/ml (0.358-3.74) 03/12/19 14:30 Current Medications Generic Name Dose Route Start Last Admin Trade Name Freq PRN Reason Stop Dose Admin Pantoprazole Sodium 80 mg/ 100 mls @ 10 mls/hr 03/12/19 15:45 03/12/19 16:11 Sodium Chloride IVPB 10 mls/hr Q10H LUKE Administration 8 MG/HR Constitutional: Yes: Calm, Pallor Eyes: Yes: Conjunctiva Clear HENT: Yes: Atraumatic Neck: Yes: Supple Cardiovascular: Yes: Pulse Irregular, Murmur (2/6 holosystolic murmur apical area) Respiratory: Yes: Rhonchi, Other (barrel chest) Gastrointestinal Inspection: Yes: WNL ...Auscultate: Yes: Normoactive Bowel Sounds ...Palpate: Yes: Soft, Other (nontender) ...Rectal Exam: Yes: Guaiac Positive (black semisolid) Musculoskeletal: Yes: Back Pain Edema: LLE: 1+, RLE: 1+ Neurological: Yes: Alert, Oriented Labs: CBC, BMP 03/12/19 14:30 03/12/19 14:30 INR, PTT INR 2.78 (0.83-1.09) H 03/12/19 14:30 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 - CONGENITAL MALFORMATION OF AORTA UNSPECIFIED (7) ASHD (arteriosclerotic heart disease) Code(s): I25.10 - ATHSCL HEART DISEASE OF [place] CORONARY ARTERY W/O ANG PCTRS (8) COPD (chronic obstructive pulmonary disease) Code(s): J44.9 - CHRONIC OBSTRUCTIVE PULMONARY DISEASE, UNSPECIFIED (9) Colon cancer Code(s): C18.9 - MALIGNANT NEOPLASM OF COLON, UNSPECIFIED (10) Diverticulosis Code(s): K57.90 - DVRTCLOS OF INTEST, PART UNSP, W/O PERF OR ABSCESS W/O BLEED (11) Microcytic hypochromic anemia Code(s): D50.9 - IRON DEFICIENCY ANEMIA, UNSPECIFIED (12) Moderate to severe pulmonary hypertension Code(s): I27.2 - OTHER SECONDARY PULMONARY HYPERTENSION * DO NOT USE * (13) Peripheral edema Code(s): R60.9 - EDEMA, UNSPECIFIED (14) Renal dysfunction Code(s): N28.9 - DISORDER OF KIDNEY AND URETER, UNSPECIFIED (15) Severe mitral regurgitation Code(s): I34.0 - NONRHEUMATIC MITRAL (VALVE) INSUFFICIENCY (16) Atrial fibrillation Code(s): I48.91 - UNSPECIFIED ATRIAL FIBRILLATION Qualifiers: Atrial fibrillation type: unspecified Qualified Code(s): I48.91 - Unspecified atrial fibrillation (17) Hypertension Code(s): I10 - ESSENTIAL (PRIMARY) HYPERTENSION (18) NSTEMI (non-ST elevated myocardial infarction) Code(s): I21.4 - NON-ST ELEVATION (NSTEMI) MYOCARDIAL INFARCTION Assessment/Plan Assessment: - Suspect UGI bleed given the melena and azotemia. The most likely etiologies include ulcer disease, erosive gastritis or GERD, AVMs. I cannot exclude bleeding from residual cancer at her polypectomy site given how close the tumor was to her excision margin. I have discussed the need for a diagnostic and interventional EGD imminently and a colonoscopy to assess the status of her cancer. I have discussed the risks associated with endoscopies including perforation and hemorrhage that could lead to surgery and transfusions with Karli and her sister. She has consented to the EGD. - Diverticulosis - History of ischemic colitis - Gallstone appears to be silent Plan: -- Transfuse PRBCs and monodonor platelets -- NPO except for meds and ice chips -- PPI drip -- ICU monitoring -- CT and CEA when renal function permits to exclude liver metastases or local evidence of colon cancer -- Colonoscopy when appropriate -- Cardiology and pulmonary consultations I discussed the case with Dr Alfredo and Karli's nurse
--- NOTE | 2019-03-12 17:35 | CONSULT ---
Consultation: CONSULT REQUEST: ICU CONSULT HISTORY OF PRESENT ILLNESS: 82 yo female with PMH HTN, HLD, CHF, CAD, NSTEMI s/p stent placement, A-fib (on eliquis) COPD, malignant colon polyp removed (no chemo/radiation), presenting to the ED with 1 week of dizziness and weakness with dark stools. Patient says she lives alone and usually takes care of herself. In the past week she said she hasn't been able to take care of herself because of the weakness. Patient said she had GI bleeding in 03/2017. During that time she had a colonoscopy which revealed diverticulosis and possibly ischemic changes in the right colon. The EGD revealed a hiatal hernia and antral erosions. She was supposed to have another colonoscopy 6 weeks later but never followed up. Patient said she has not had any bleeding since that time. In the ER she was found to have a Hgb of 5.5. Positive FOBT. Patient HD stable with MAP of 68 REVIEW OF SYSTEMS: CONSTITUTIONAL: generalized weakness Absent: fever, chills, loss of appetite HEENT: Absent: rhinorrhea, nasal congestion CARDIOVASCULAR: lightheadedness Absent: chest pain, syncope, palpitations, irregular heart rate, peripheral edema RESPIRATORY: Absent: cough, shortness of breath, dyspnea with exertion, orthopnea, wheezing, stridor, hemoptysis GASTROINTESTINAL: melena Absent: abdominal pain, abdominal distension, nausea, vomiting, diarrhea, constipation, hematochezia GENITOURINARY: Absent: dysuria, frequency, urgency, hesitancy, hematuria, HEMATOLOGIC/IMMUNOLOGIC: Absent: easy bleeding, easy bruising, lymphadenopathy, frequent infections PHYSICAL EXAMINATION Vital Signs - 24 hr 03/12/19 03/12/19 03/12/19 13:37 15:00 15:28 Temperature 98.2 F Pulse Rate 85 Pulse Rate [ 91 H 94 H Radial] Respiratory 16 22 H 22 H Rate Blood Pressure 98/60 Blood Pressure 80/55 L 86/56 L [Right Arm] O2 Sat by Pulse 99 94 L 97 Oximetry (%) 03/12/19 16:39 Temperature Pulse Rate Pulse Rate [ Radial] Respiratory Rate Blood Pressure Blood Pressure [Right Arm] O2 Sat by Pulse 96 Oximetry (%) GENERAL: a/o x 3 HEAD: Normal with no signs of trauma. EYES: PERRL EARS, NOSE, THROAT: dry mucous membranes NECK: supple without lymphadenopathy, JVD, or masses. LUNGS: cta b/l, no rales rhonchi or wheezing HEART: RRR ABDOMEN: soft, mild diffuse abdominal tenderness LOWER EXTREMITIES: 2+ pulses, warm, No peripheral edema. NEUROLOGICAL: Normal speech. Laboratory Results - last 24 hr 03/12/19 03/12/19 03/12/19 14:30 14:30 14:30 WBC 3.0 L RBC 1.89 L Hgb 5.5 L* Hct 17.2 L D MCV 91.0 MCH 29.2 D MCHC 32.1 RDW 21.0 H Plt Count 115 L D MPV 8.4 D Absolute Neuts (auto) 2.2 Neutrophils % 74.0 Lymphocytes % 9.4 D Monocytes % 10.1 Eosinophils % 4.4 Basophils % 2.1 H Nucleated RBC % 0 PT with INR 33.10 H INR 2.78 H PTT (Actin FS) 37.6 H Sodium Potassium Chloride Carbon Dioxide Anion Gap BUN Creatinine Est GFR (CKD-EPI)AfAm Est GFR (CKD-EPI)NonAf Random Glucose Calcium Phosphorus Magnesium Total Bilirubin AST ALT Alkaline Phosphatase Creatine Kinase 45 Troponin I 0.02 Total Protein Albumin TSH Stool Occult Blood Blood Type Antibody Screen Crossmatch 03/12/19 03/12/19 03/12/19 14:30 14:30 14:30 WBC RBC Hgb Hct MCV MCH MCHC RDW Plt Count MPV Absolute Neuts (auto) Neutrophils % Lymphocytes % Monocytes % Eosinophils % Basophils % Nucleated RBC % PT with INR INR PTT (Actin FS) Sodium 138 Potassium 3.8 Chloride 100 Carbon Dioxide 29 Anion Gap 9 BUN 82.1 H Creatinine 2.2 H Est GFR (CKD-EPI)AfAm 22.93 Est GFR (CKD-EPI)NonAf 19.79 Random Glucose 109 H Calcium 8.7 Phosphorus 5.8 H Magnesium 1.9 Total Bilirubin 0.9 AST 7 L ALT 7 L Alkaline Phosphatase 42 L Creatine Kinase Troponin I Total Protein 6.0 L Albumin 2.9 L TSH 1.24 Stool Occult Blood Positive Blood Type B POSITIVE Antibody Screen Negative Crossmatch See Detail Active Medications Generic Name Dose Route Start Last Admin Trade Name Freq PRN Reason Stop Dose Admin Pantoprazole Sodium 80 mg/ 100 mls @ 10 mls/hr 03/12/19 15:45 03/12/19 16:11 Sodium Chloride IVPB 10 mls/hr Q10H [facility] Administration 8 MG/HR ASSESSMENT/PLAN: #GI Bleed #Acute blood loss Anemia #AMANDA #A-fib #CAD #D CHF #COPD #HTN -protonix drip -transfuse PRBC as needed. 2 Units ordered -keep hgb >7 -monitor vitals -maintain MAP above 65 -IV fluids -hold AC -NPO -GI consult Dispo: We will continue to follow the patient. Thank you for this consultative opportunity. Visit type - Emergency Visit Emergency Visit: Yes ED Registration Date: 03/12/19 Care time: The patient presented to the Emergency Department on the above date and was hospitalized for further evaluation of their emergent condition. - New Patient This patient is new to me today: Yes Date on this admission: 03/13/19 - Critical Care Critical Care patient: Yes Total Critical Care Time (in minutes): 45 Critical Care Statement: The care of this patient involved high complexity decision making to prevent further life threatening deterioration of the patient 's condition and/or to evaluate & treat vital organ system(s) failure or risk of failure. ATTENDING PHYSICIAN STATEMENT I saw and evaluated the patient. I reviewed the resident's note and discussed the case with the resident. I agree with the resident's findings and plan as documented. SUBJECTIVE: OBJECTIVE: ASSESSMENT AND PLAN:
[2019-03-12] MEDS ORDERED: LEVOTHYROXINE NA 88 MCG TABLET (FP) PO ONE (17:56)
[2019-03-12] MEDS ORDERED: FUROSEMIDE 40 MG/4 ML INJECTABLE VIAL IVPUSH PRN (19:41)
[2019-03-12] MEDS ORDERED: SODIUM CHLORIDE 0.9% 500 ML INFUS.BAG IV ONE (20:18)
[2019-03-13] MEDS: LATANOPROST 0.005% OPHTH SOLN 2.5ML BOTTLE OU SCH ×2 (00:16→22:55)
[2019-03-13 02:43] LABS: HEMATOCRIT 23.7 % (32.4-45.2); HEMOGLOBIN 7.9 GM/dL (10.7-15.3); MCH 29.7 pg (25.7-33.7); MCHC 33.3 g/dl (32.0-36.0); MEAN CELL VOLUME 89.1 fl (80-96); MEAN PLT VOLUME 8.3 fl (7.5-11.1); PLATELET COUNT 132 K/MM3 (134-434); RBC 2.66 M/mm3 (3.60-5.2); WHITE BLOOD COUNT 3.2 K/mm3 (4.0-10.0)
[2019-03-13] MEDS ORDERED: SODIUM CHLORIDE 0.9% 500 ML INFUS.BAG IV ONE (04:34)
[2019-03-13 07:28] LABS: BASO % 1.2 % (0-2.0); EOS % 3.4 % (0-4.5); HEMATOCRIT 21.8 % (32.4-45.2); HEMOGLOBIN 7.3 GM/dL (10.7-15.3); MCH 29.4 pg (25.7-33.7); MCHC 33.4 g/dl (32.0-36.0); MEAN CELL VOLUME 88.2 fl (80-96); MEAN PLT VOLUME 8.3 fl (7.5-11.1); MONO % 11.8 % (3.8-10.2); NEUT % 74.6 % (42.8-82.8); PLATELET COUNT 129 K/MM3 (134-434); RBC 2.47 M/mm3 (3.60-5.2); RDW 19.2 % (11.6-15.6); RETICULOCYTES 1.42 % (0.5-1.5); WHITE BLOOD COUNT 3.7 K/mm3 (4.0-10.0)
[2019-03-13 07:32] LABS: INR 2.17 (0.83-1.09); PROTHROMBIN TIME (PATIENT) 25.8 SEC (9.7-13.0)
[2019-03-13 07:48] LABS: ALBUMIN 3.1 g/dl (3.4-5.0); BILIRUBIN,TOTAL 1.8 mg/dL (0.2-1); BLOOD UREA NITROGEN 79.1 mg/dL (7-18); CALCIUM 8.4 mg/dL (8.5-10.1); CREATININE 1.8 mg/dL (0.55-1.3); POTASSIUM 3.4 mmol/L (3.5-5.1); TOT PROT 5.9 g/dl (6.4-8.2)
--- NOTE | 2019-03-13 08:02 | PN ---
Physical Exam: SUBJECTIVE: Patient seen and examined. Patient has no complaints and reports dizziness resolved s/p 2 units prbc's, however has not ambulated this AM. No complaints at this time. OBJECTIVE: Vital Signs Period Temp Pulse Resp BP Sys/Tenorio Pulse Ox Last 24 Hr 97.2 F-98.6 F 77-97 16-22 68-103/38-84 94-100 GENERAL: The patient is awake, alert, and fully oriented, in no acute distress. HEAD: Normal with no signs of trauma. EYES: PERRL, extraocular movements intact, sclera anicteric, conjunctiva clear. No ptosis. ENT: Ears normal, nares patent, oropharynx clear without exudates, moist mucous membranes. NECK: Trachea midline, full range of motion, supple. LUNGS: Breath sounds equal, clear to auscultation bilaterally, no wheezes, no crackles, no accessory muscle use. HEART: Regular rate and rhythm, S1, S2 without murmur, rub or gallop. ABDOMEN: +Non-specific abdominal tenderness, soft, nondistended, normoactive bowel sounds, no guarding, no rebound, no hepatosplenomegaly, no masses. EXTREMITIES: 2+ pulses, warm, well-perfused, no edema. NEUROLOGICAL: Cranial nerves II through XII grossly intact. Normal speech, gait not observed. PSYCH: Normal mood, normal affect. SKIN: Warm, dry, normal turgor, no rashes or lesions noted Laboratory Results - last 24 hr 03/12/19 03/12/19 03/12/19 14:30 14:30 14:30 WBC 3.0 L RBC 1.89 L Hgb 5.5 L* Hct 17.2 L D MCV 91.0 MCH 29.2 D MCHC 32.1 RDW 21.0 H Plt Count 115 L D MPV 8.4 D Absolute Neuts (auto) 2.2 Neutrophils % 74.0 Lymphocytes % 9.4 D Monocytes % 10.1 Eosinophils % 4.4 Basophils % 2.1 H Nucleated RBC % 0 Retic Count PT with INR 33.10 H INR 2.78 H PTT (Actin FS) 37.6 H Sodium Potassium Chloride Carbon Dioxide Anion Gap BUN Creatinine Est GFR (CKD-EPI)AfAm Est GFR (CKD-EPI)NonAf Random Glucose Calcium Phosphorus Magnesium Iron TIBC Iron Saturation Unsaturated IBC Ferritin Total Bilirubin AST ALT Alkaline Phosphatase Creatine Kinase 45 Troponin I 0.02 Total Protein Albumin TSH Stool Occult Blood Blood Type Antibody Screen Crossmatch 03/12/19 03/12/19 03/12/19 14:30 14:30 14:30 WBC RBC Hgb Hct MCV MCH MCHC RDW Plt Count MPV Absolute Neuts (auto) Neutrophils % Lymphocytes % Monocytes % Eosinophils % Basophils % Nucleated RBC % Retic Count PT with INR INR PTT (Actin FS) Sodium 138 Potassium 3.8 Chloride 100 Carbon Dioxide 29 Anion Gap 9 BUN 82.1 H Creatinine 2.2 H Est GFR (CKD-EPI)AfAm 22.93 Est GFR (CKD-EPI)NonAf 19.79 Random Glucose 109 H Calcium 8.7 Phosphorus 5.8 H Magnesium 1.9 Iron TIBC Iron Saturation Unsaturated IBC Ferritin Total Bilirubin 0.9 AST 7 L ALT 7 L Alkaline Phosphatase 42 L Creatine Kinase Troponin I Total Protein 6.0 L Albumin 2.9 L TSH 1.24 Stool Occult Blood Positive Blood Type B POSITIVE Antibody Screen Negative Crossmatch See Detail 03/13/19 03/13/19 03/13/19 00:45 06:00 06:00 WBC 3.2 L 3.7 L RBC 2.66 L 2.47 L Hgb 7.9 L 7.3 L Hct 23.7 L D 21.8 L MCV 89.1 88.2 MCH 29.7 29.4 MCHC 33.3 33.4 RDW 19.0 H 19.2 H Plt Count 132 L 129 L MPV 8.3 8.3 Absolute Neuts (auto) 2.8 Neutrophils % 74.6 Lymphocytes % 9.0 Monocytes % 11.8 H Eosinophils % 3.4 Basophils % 1.2 Nucleated RBC % 0 Retic Count 1.42 D PT with INR INR PTT (Actin FS) Sodium 140 Potassium 3.4 L Chloride 104 Carbon Dioxide 28 Anion Gap 8 BUN 79.1 H Creatinine 1.8 H Est GFR (CKD-EPI)AfAm 29.23 Est GFR (CKD-EPI)NonAf 25.22 Random Glucose 77 Calcium 8.4 L Phosphorus Magnesium Iron 153 TIBC 389 Iron Saturation 39 Unsaturated IBC 236 Ferritin 17.1 Total Bilirubin 1.8 H AST 8 L ALT 9 L Alkaline Phosphatase 43 L Creatine Kinase Troponin I Total Protein 5.9 L Albumin 3.1 L TSH Stool Occult Blood Blood Type Antibody Screen Crossmatch 03/13/19 06:30 WBC RBC Hgb Hct MCV MCH MCHC RDW Plt Count MPV Absolute Neuts (auto) Neutrophils % Lymphocytes % Monocytes % Eosinophils % Basophils % Nucleated RBC % Retic Count PT with INR 25.80 H INR 2.17 H PTT (Actin FS) Sodium Potassium Chloride Carbon Dioxide Anion Gap BUN Creatinine Est GFR (CKD-EPI)AfAm Est GFR (CKD-EPI)NonAf Random Glucose Calcium Phosphorus Magnesium Iron TIBC Iron Saturation Unsaturated IBC Ferritin Total Bilirubin AST ALT Alkaline Phosphatase Creatine Kinase Troponin I Total Protein Albumin TSH Stool Occult Blood Blood Type Antibody Screen Crossmatch Active Medications Generic Name Dose Route Start Last Admin Trade Name Freq PRN Reason Stop Dose Admin Furosemide 20 mg 03/12/19 19:41 03/12/19 21:15 Lasix Injection - IVPUSH 20 mg PRN PRN Administration post transfusion Pantoprazole Sodium 80 mg/ 100 mls @ 10 mls/hr 03/12/19 15:45 03/12/19 16:11 Sodium Chloride IVPB 10 mls/hr Q10H [facility] Administration 8 MG/HR Isosorbide Mononitrate 30 mg 03/13/19 10:00 Imdur - PO DAILY LUKE Latanoprost 1 drop 03/12/19 22:00 03/13/19 00:16 Xalatan 0.005% Eye Drops - OU 1 drop HS LUKE Administration Levothyroxine Sodium 50 mcg 03/13/19 10:00 Synthroid Injection - IVPUSH DAILY [facility] ASSESSMENT/PLAN: #GI Bleed #Anemia #A-fib #CAD #D CHF #COPD #HTN -protonix drip -hgb down 7.3 from 7.9; will transfuse 3rd ordered unit PRBC -hydrate for possible CTAP tomorrow -monitor vitals -maintain MAP above 65 -hold AC -NPO -GI consult Visit type - Emergency Visit Emergency Visit: Yes ED Registration Date: 03/12/19 Care time: The patient presented to the Emergency Department on the above date and was hospitalized for further evaluation of their emergent condition. - New Patient This patient is new to me today: Yes Date on this admission: 03/13/19 - Critical Care Critical Care patient: Yes Total Critical Care Time (in minutes): 43 Critical Care Statement: The care of this patient involved high complexity decision making to prevent further life threatening deterioration of the patient 's condition and/or to evaluate & treat vital organ system(s) failure or risk of failure. ATTENDING PHYSICIAN STATEMENT I saw and evaluated the patient. I reviewed the resident's note and discussed the case with the resident. I agree with the resident's findings and plan as documented. SUBJECTIVE: OBJECTIVE: ASSESSMENT AND PLAN:
[2019-03-13 08:37] LABS: MAGNESIUM 1.6 mg/dL (1.8-2.4); PHOSPHOROUS 4.8 mg/dL (2.5-4.9)
[2019-03-13] MEDS: PANTOPRAZOLE SODIUM 80 MG in SODIUM CHLORIDE 100 ML IVPB SCH ×3 (08:52→22:56)
[2019-03-13] MEDS: KCL 10 MEQ IVPB 10 MEQ/100 ML INFUS.BAG IVPB SCH ×3 (09:19→14:46)
--- NOTE | 2019-03-13 09:39 | PN ---
Teaching Attending Note Name of Resident: Ned Heaton ATTENDING PHYSICIAN STATEMENT I saw and evaluated the patient. I reviewed the resident's note and discussed the case with the resident. I agree with the resident's findings and plan as documented. SUBJECTIVE: Pt seen and examined in the ICU. Transfused 2 units PRBC with appropriate response. Some abdominal discomfort. Denies shortness of breath or chest pain. OBJECTIVE: Vital Signs Period Temp Pulse Resp BP Sys/Tenorio Pulse Ox Last 24 Hr 97.2 F-98.6 F 76-97 16-22 68-103/38-84 94-100 Intake & Output 03/10/19 03/11/19 03/12/19 03/13/19 23:59 23:59 23:59 23:59 Intake Total 307 820 Output Total 550 800 Balance -243 20 Weight 56.654 kg 56.501 kg Gen: NAD at rest Heart: RRR Lung: decreased breath sounds at the bases Abd: soft, mild TTP diffusely Ext: no edema CBC, BMP 03/13/19 06:00 03/13/19 06:00 Active Medications Pantoprazole Sodium 80 mg/ (Sodium Chloride) 100 mls @ 10 mls/hr IVPB Q10H [facility] Last Admin: 03/13/19 08:52 Dose: Not Given Potassium Chloride (Potassium Chloride 10 Meq Premix Ivpb -) 10 meq in 100 mls @ 100 mls/hr IVPB Q60M [facility] Stop: 03/13/19 11:29 Last Admin: 03/13/19 09:19 Dose: 100 mls/hr Isosorbide Mononitrate (Imdur -) 30 mg PO DAILY [facility] Latanoprost (Xalatan 0.005% Eye Drops -) 1 drop OU HS [facility] Last Admin: 03/13/19 00:16 Dose: 1 drop Levothyroxine Sodium (Synthroid Injection -) 50 mcg IVPUSH DAILY [facility] ASSESSMENT AND PLAN: GI Bleed Acute Blood Loss Anemia Acute Kidney Injury Thrombocytopenia h/o Colon Ca Atrial Fibrillation on anticoagulation LV Diastolic Dysfunction COPD Hypothyroidism HTN - transfuse PRBC - monitor H/H - protonix - holding anticoagulation - IVF - monitor urine output, creatinine - CT A/P with contrast when renal function improved - GI f/u - NPO for now - DVT prophylaxis
[2019-03-13] MEDS ORDERED: DEXTROSE 5%-NORMAL SALINE 1,000 ML IV SCH (09:45)
[2019-03-13] MEDS ORDERED: LISINOPRIL 20 MG TABLET (FP) PO SCH (10:00)
[2019-03-13] MEDS ORDERED: LEVOTHYROXINE SODIUM 100 MCG VIAL IVPUSH SCH (10:00)
[2019-03-13] MEDS ORDERED: ISOSORBIDE MONONITRATE 30 MG TAB.SR.24H (FP) PO SCH (10:00)
[2019-03-13] MEDS ORDERED: MAGNESIUM SULF 50% (8.12 MEQ/2 ML-1 GM VIAL) IVPB ONE (10:30)
--- NOTE | 2019-03-13 10:41 | PN.GI ---
GI Progress Note Subjective: GI NOte: No signs of brisk bleeding in fact no BM today. Has no pain or vomiting. - Objective Vital Signs: Vital Signs Temperature 97.2 F L 03/13/19 06:40 Pulse Rate 76 03/13/19 08:06 Respiratory Rate 16 03/13/19 08:06 Blood Pressure 95/63 03/13/19 08:06 O2 Sat by Pulse Oximetry (%) 98 03/13/19 09:00 Laboratory Tests 11/25/17 03/12/19 03/12/19 06:20 14:30 14:30 WBC 3.0 L Hgb 5.5 L* BUN 82.1 H Creatinine 2.2 H Carcinoembryonic Ag 3.0 03/13/19 03/13/19 03/13/19 06:00 06:00 06:30 WBC 3.7 L Hgb 7.3 L BUN 79.1 H Creatinine 1.8 H Carcinoembryonic Ag Pending Constitutional: No Distress Eyes: Yes: Conjunctiva Clear ...Auscultate: Yes: Normoactive Bowel Sounds ...Palpate: Yes: Soft, Other (nontender) Labs: CBC, BMP 03/13/19 06:00 03/13/19 06:00 INR, PTT INR 2.17 (0.83-1.09) H 03/13/19 06:30 Assessment/Plan Assessment: - UGI bleed subsiding - Diverticulosis - History of ischemic colitis - Gallstone appears to be silent Plan: -- Clear liquids -- Continue PPI drip -- Can D/C ICU monitoring -- Colonoscopy when appropriate. I discussed this with Karli and she is in agreement to follow up in my office 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 - CONGENITAL MALFORMATION OF [place] UNSPECIFIED (7) ASHD (arteriosclerotic heart disease) Code(s): I25.10 - ATHSCL HEART DISEASE OF [place] CORONARY ARTERY W/O ANG PCTRS (8) COPD (chronic obstructive pulmonary disease) Code(s): J44.9 - CHRONIC OBSTRUCTIVE PULMONARY DISEASE, UNSPECIFIED (9) Colon cancer Code(s): C18.9 - MALIGNANT NEOPLASM OF COLON, UNSPECIFIED (10) Diverticulosis Code(s): K57.90 - DVRTCLOS OF INTEST, PART UNSP, W/O PERF OR ABSCESS W/O BLEED (11) Microcytic hypochromic anemia Code(s): D50.9 - IRON DEFICIENCY ANEMIA, UNSPECIFIED (12) Moderate to severe pulmonary hypertension Code(s): I27.2 - OTHER SECONDARY PULMONARY HYPERTENSION * DO NOT USE * (13) Peripheral edema Code(s): R60.9 - EDEMA, UNSPECIFIED (14) Renal dysfunction Code(s): N28.9 - DISORDER OF KIDNEY AND URETER, UNSPECIFIED (15) Severe mitral regurgitation Code(s): I34.0 - NONRHEUMATIC MITRAL (VALVE) INSUFFICIENCY (16) Atrial fibrillation Code(s): I48.91 - UNSPECIFIED ATRIAL FIBRILLATION Qualifiers: Atrial fibrillation type: unspecified Qualified Code(s): I48.91 - Unspecified atrial fibrillation (17) Hypertension Code(s): I10 - ESSENTIAL (PRIMARY) HYPERTENSION (18) NSTEMI (non-ST elevated myocardial infarction) Code(s): I21.4 - NON-ST ELEVATION (NSTEMI) MYOCARDIAL INFARCTION
[2019-03-13] MEDS: DEXTROSE 5%-NORMAL SALINE 1,000 ML IV SCH (11:00)
--- NOTE | 2019-03-13 11:39 | PN ---
Progress Note (short form) - Note Progress Note: Patient in icu. No further bleed noted. OBJECTIVE: Vital Signs Temperature 97.2 F L 03/13/19 06:40 Pulse Rate 76 03/13/19 08:06 Respiratory Rate 16 03/13/19 08:06 Blood Pressure 95/63 03/13/19 08:06 O2 Sat by Pulse Oximetry (%) 98 03/13/19 09:00 GENERAL: The patient is awake, alert, and fully oriented, in mild distress. HEAD: Normal with no signs of trauma. EYES: PERRL, extraocular movements intact, sclera anicteric, conjunctiva clear. ENT: Ears normal, oropharynx clear without exudates, moist mucous membranes. NECK: Trachea midline, full range of motion, supple. LUNGS: Breath sounds equal, clear to auscultation bilaterally, no wheezes, no crackles, no accessory muscle use. HEART: Irregularly-irregular , rate of 76 , S1, S2 positive, ALEJANDRO 3/6 lsb, NO rub or gallop. ABDOMEN: Soft, nt,nd, normoactive bowel sounds, no guarding, no rebound, no hepatosplenomegaly, no masses. EXTREMITIES: 2+ pulses, warm, well-perfused, no edema. NEUROLOGICAL: Cranial nerves II through XII grossly intact. Normal speech, gait not observed. PSYCH: Normal mood, normal affect. SKIN: Warm, dry, normal turgor, no rashes or lesions noted CBCD WBC 3.7 K/mm3 (4.0-10.0) L 03/13/19 06:00 RBC 2.47 M/mm3 (3.60-5.2) L 03/13/19 06:00 Hgb 7.3 GM/dL (10.7-15.3) L 03/13/19 06:00 Hct 21.8 % (32.4-45.2) L 03/13/19 06:00 MCV 88.2 fl (80-96) 03/13/19 06:00 MCHC 33.4 g/dl (32.0-36.0) 03/13/19 06:00 RDW 19.2 % (11.6-15.6) H 03/13/19 06:00 Plt Count 129 K/MM3 (134-434) L 03/13/19 06:00 MPV 8.3 fl (7.5-11.1) 03/13/19 06:00 CMP Sodium 140 mmol/L (136-145) 03/13/19 06:00 Potassium 3.4 mmol/L (3.5-5.1) L 03/13/19 06:00 Chloride 104 mmol/L (98-107) 03/13/19 06:00 Carbon Dioxide 28 mmol/L (21-32) 03/13/19 06:00 Anion Gap 8 MMOL/L (8-16) 03/13/19 06:00 BUN 79.1 mg/dL (7-18) H 03/13/19 06:00 Creatinine 1.8 mg/dL (0.55-1.3) H 03/13/19 06:00 Random Glucose 77 mg/dL (74-106) 03/13/19 06:00 Calcium 8.4 mg/dL (8.5-10.1) L 03/13/19 06:00 Total Bilirubin 1.8 mg/dL (0.2-1) H 03/13/19 06:00 AST 8 U/L (15-37) L 03/13/19 06:00 ALT 9 U/L (13-61) L 03/13/19 06:00 Alkaline Phosphatase 43 U/L (45-117) L 03/13/19 06:00 Total Protein 5.9 g/dl (6.4-8.2) L 03/13/19 06:00 Albumin 3.1 g/dl (3.4-5.0) L 03/13/19 06:00 CARDIAC ENZYMES Creatine Kinase 45 U/L (26-192) 03/12/19 14:30 Troponin I 0.02 ng/ml (0.00-0.05) 03/12/19 14:30 Current Medications Generic Name Dose Route Start Last Admin Trade Name Freq PRN Reason Stop Dose Admin Carvedilol 12.5 mg 03/13/19 22:00 Coreg - PO BID [facility] Pantoprazole Sodium 80 mg/ 100 mls @ 10 mls/hr 03/12/19 15:45 03/13/19 08:52 Sodium Chloride IVPB Not Given Q10H LU[facility] 8 MG/HR Dextrose/Sodium Chloride 1,000 mls @ 50 mls/hr 03/13/19 10:46 D5-Ns - IV ASDIR [facility] Isosorbide Mononitrate 30 mg 03/13/19 10:00 Imdur - PO DAILY [facility] Latanoprost 1 drop 03/12/19 22:00 03/13/19 00:16 Xalatan 0.005% Eye Drops - OU 1 drop HS [facility] Administration Levothyroxine Sodium 50 mcg 03/13/19 10:00 Synthroid Injection - IVPUSH DAILY [facility] Home Medications Medication Instructions Recorded Atorvastatin Ca [Lipitor] 40 mg PO HS 10/19/17 Carvedilol [Coreg] 12.5 mg PO BID 10/19/17 Latanoprost 0.005% Eye Drops 1 drop OU HS 10/19/17 [Xalatan 0.005% Eye Drops -] Levothyroxine Sodium [Synthroid] 100 mcg PO DAILY 10/19/17 Isosorbide Mononitrate [Isosorbide 30 mg PO DAILY 11/25/17 Mononitrate ER] Apixaban [Eliquis -] 2.5 mg PO BID #60 tablet 12/04/17 Furosemide [Lasix -] 80 mg PO BID@0600,1400 03/12/19 Lisinopril 10 mg PO DAILY 03/12/19 Laboratory Tests 03/12/19 03/12/19 03/12/19 14:30 14:30 14:30 WBC 3.0 L RBC 1.89 L Hgb 5.5 L* Plt Count 115 L D PT with INR 33.10 H INR 2.78 H PTT (Actin FS) 37.6 H BUN 82.1 H Creatinine 2.2 H Stool Occult Blood 03/12/19 14:30 WBC RBC Hgb Plt Count PT with INR INR PTT (Actin FS) BUN Creatinine Stool Occult Blood Positive ASSESSMENT AND PLAN: Patient is an 82yo Female with PMHx D.CHF, Afib on NOac , colon ca s/p resection, COPD, CAD s/p stent presented to the ER with acute GIB #s/p UGIB : on Protonix drip continue, continue to HOLD ELIQUIS for now, s/p transfusions, stable at this time s/p FFp, Prbc,GI , s/p platelet transfusion i n ED. Colonoscopy and further procedure as per GI once patient is stable #ARF prerenal due to Acute GIB # Acute on CHronic diastolic CHF, lasix in b/t transfusion , cardio dr escudero # Hx of afib: dc Eliquis since having acute GIB , hold bp meds for now, since hypotensive # hx of Colon ca s/p resection # hypothyroid- continue levothyroxine # CAD s/p stent- not on any antiplatelet due to GI bleeding. # hx of 7th rib fracture # hx of UTI Klebsiella Pneumoniae GI px: protonix drip DVT px: Scds Clear liquids Colonoscopy when appropriate. patient to follow up with when gets discharge home. Visit type - Emergency Visit Emergency Visit: Yes ED Registration Date: 03/12/19 Care time: The patient presented to the Emergency Department on the above date and was hospitalized for further evaluation of their emergent condition. - New Patient This patient is new to me today: No - Critical Care Critical Care patient: No - Discharge Referral Referred to [facility] Med [facility].C[facility] No
[2019-03-13] MEDS: LEVOTHYROXINE SODIUM 100 MCG VIAL IVPUSH SCH (14:06)
[2019-03-13] MEDS ORDERED: PT OWN MED DRAWER 7, Y5N ONE ×3 (14:38→14:52)
[2019-03-13 15:35] LABS: BASO % 1.6 % (0-2.0); EOS % 3.8 % (0-4.5); HEMATOCRIT 27.8 % (32.4-45.2); LYMPH % 7.3 % (8-40); MCH 29.1 pg (25.7-33.7); MCHC 32.3 g/dl (32.0-36.0); MEAN CELL VOLUME 90.1 fl (80-96); MEAN PLT VOLUME 8.7 fl (7.5-11.1); MONO % 12.3 % (3.8-10.2); PLATELET COUNT 120 K/MM3 (134-434); RBC 3.09 M/mm3 (3.60-5.2); RDW 18.6 % (11.6-15.6); WHITE BLOOD COUNT 3.8 K/mm3 (4.0-10.0)
--- NOTE | 2019-03-13 17:58 | EKG ---
Test Reason : Blood Pressure : / mmHG Vent. Rate : 093 BPM Atrial Rate : 267 BPM P-R Int : 000 ms QRS Dur : 082 ms QT Int : 374 ms P-R-T Axes : 000 097 218 degrees QTc Int : 465 ms ATRIAL FIBRILLATION RIGHTWARD AXIS ABNORMAL ECG WHEN COMPARED WITH ECG OF 28-NOV-2017 08:56, INVERTED T WAVES HAVE REPLACED NONSPECIFIC T WAVE ABNORMALITY IN INFERIOR LEADS QT HAS LENGTHENED Confirmed by MD Mat, Clem ([id number]) on 03/13/2019 5:58:04 PM Referred By: Confirmed By:Clem Rivero MD
[2019-03-13] MEDS ORDERED: CARVEDILOL 12.5 MG TABLET (FP) PO SCH (22:00)
[2019-03-14] MEDS ORDERED: SODIUM CHLORIDE 250 ML IV STA (06:44)
[2019-03-14 07:39] LABS: BASO % 1.5 % (0-2.0); EOS % 5.3 % (0-4.5); HEMATOCRIT 24.3 % (32.4-45.2); HEMOGLOBIN 8.2 GM/dL (10.7-15.3); LYMPH % 10.8 % (8-40); MCH 29.6 pg (25.7-33.7); MCHC 33.6 g/dl (32.0-36.0); MEAN PLT VOLUME 8.3 fl (7.5-11.1); MONO % 13.7 % (3.8-10.2); NEUT % 68.7 % (42.8-82.8); PLATELET COUNT 102 K/MM3 (134-434); RBC 2.76 M/mm3 (3.60-5.2); RDW 18.4 % (11.6-15.6); WHITE BLOOD COUNT 3.4 K/mm3 (4.0-10.0)
[2019-03-14 07:57] LABS: BLOOD UREA NITROGEN 56.1 mg/dL (7-18); CREATININE 1.6 mg/dL (0.55-1.3); PHOSPHOROUS 3.9 mg/dL (2.5-4.9); POTASSIUM 3.5 mmol/L (3.5-5.1)
--- NOTE | 2019-03-14 08:56 | PN ---
Physical Exam: SUBJECTIVE: Patient seen and examined at bedside ICU rounds. No acute overnight events. Patient with baseline soft blood pressures (81/57, MAP 63 during exam) given several small IVF boluses overnight. Gentle rehydration in CHF patient without exacerbation. Now s/p 3U PRBCs with HGB 9.0 yesterday, 8.2 this morning. Advanced to clear liquid diet per GI, plan for transfer to floor once H&H is stable, outpatient colonoscopy. On 2L NC and protonix drip. Denies nausea, vomiting, CP, SOB, dizziness, or other concerning symptoms. No BMs or flatus. Chest Xray worsened compared to yesterday with bilateral effusions. Patient reassessed on attending rounds, breathing moderately worsened, improved with increase to 5L NC. OBJECTIVE: Vital Signs Period Temp Pulse Resp BP Sys/Ten[place] Pulse Ox Last 24 Hr 97.2 F-97.5 F 59-87 12-18 75-107/43-67 98-98 GENERAL: The patient is awake, alert, and fully oriented, in no acute distress. HEAD: Normal with no signs of trauma. EYES: PERRL, extraocular movements intact, sclera anicteric, conjunctiva clear. No ptosis. ENT: Ears normal, nares patent, oropharynx clear without exudates, moist mucous membranes. NECK: Trachea midline, full range of motion, supple. LUNGS: Breath sounds equal, clear to auscultation bilaterally, no wheezes, no crackles, no accessory muscle use. HEART: Regular rate and rhythm, S1, S2 without murmur, rub or gallop. ABDOMEN: Soft, mildly tender in epigastrium, nondistended, normoactive bowel sounds, no guarding, no rebound, no hepatosplenomegaly, no masses. EXTREMITIES: 2+ pulses, warm, well-perfused, no edema. NEUROLOGICAL: Cranial nerves II through XII grossly intact. Normal speech, gait not observed. PSYCH: Normal mood, normal affect. SKIN: Warm, dry, normal turgor, no rashes or lesions noted Laboratory Results - last 24 hr 03/12/19 03/13/19 03/13/19 14:30 06:30 15:04 WBC 3.8 L RBC 3.09 L Hgb 9.0 L Hct 27.8 L D MCV 90.1 MCH 29.1 MCHC 32.3 RDW 18.6 H Plt Count 120 L MPV 8.7 Absolute Neuts (auto) 2.8 Neutrophils % 75.0 Lymphocytes % 7.3 L Monocytes % 12.3 H Eosinophils % 3.8 Basophils % 1.6 Nucleated RBC % 0 Sodium Potassium Chloride Carbon Dioxide Anion Gap BUN Creatinine Est GFR (CKD-EPI)AfAm Est GFR (CKD-EPI)NonAf Random Glucose Calcium Phosphorus Magnesium Carcinoembryonic Ag 3.2 Blood Type B POSITIVE Antibody Screen Negative Crossmatch See Detail 03/14/19 03/14/19 06:49 06:49 WBC 3.4 L RBC 2.76 L Hgb 8.2 L Hct 24.3 L MCV 88.0 MCH 29.6 MCHC 33.6 RDW 18.4 H Plt Count 102 L MPV 8.3 Absolute Neuts (auto) 2.3 Neutrophils % 68.7 Lymphocytes % 10.8 D Monocytes % 13.7 H Eosinophils % 5.3 H Basophils % 1.5 Nucleated RBC % 0 Sodium 141 Potassium 3.5 Chloride 109 H Carbon Dioxide 28 Anion Gap 5 L BUN 56.1 H Creatinine 1.6 H Est GFR (CKD-EPI)AfAm 33.70 Est GFR (CKD-EPI)NonAf 29.08 Random Glucose 97 Calcium 8.0 L Phosphorus 3.9 Magnesium 2.0 Carcinoembryonic Ag Blood Type Antibody Screen Crossmatch Active Medications Generic Name Dose Route Start Last Admin Trade Name Freq PRN Reason Stop Dose Admin Carvedilol 12.5 mg 03/13/19 22:00 Coreg - PO BID [facility] Pantoprazole Sodium 80 mg/ 100 mls @ 10 mls/hr 03/12/19 15:45 03/13/19 22:56 Sodium Chloride IVPB 10 mls/hr Q10H [facility] Administration 8 MG/HR Dextrose/Sodium Chloride 1,000 mls @ 50 mls/hr 03/13/19 10:46 03/13/19 11:00 D5-Ns - IV 50 mls/hr ASDIR [facility] Administration Isosorbide Mononitrate 30 mg 03/13/19 10:00 03/13/19 13:46 Imdur - PO 30 mg DAILY [facility] Administration Latanoprost 1 drop 03/12/19 22:00 03/13/19 22:55 Xalatan 0.005% Eye Drops - OU 1 drop HS [facility] Administration Levothyroxine Sodium 50 mcg 03/13/19 10:00 03/13/19 14:06 Synthroid Injection - IVPUSH 50 mcg DAILY [facility] Administration ASSESSMENT/PLAN: 82 yo female with PMH HTN, HLD, CHF, CAD, NSTEMI s/p stent placement, A-fib (on eliquis) COPD, malignant colon polyp removed (no chemo/radiation), presenting to the ED with 1 week of dizziness and weakness with dark stools. Now s/p 3U PRBCs with improved HGB, patient is asymptomatic at this time. #CV - A-fib, CAD, DCHF, HTN -Continuing to hold home AC -10mg Midridine TID -Maintain MAP >65, -Low threshold for peripheral vasopressin vs central venous access #Pulm - COPB, intermittent home O2 -Monitor O2 Sat -40 Lasix for fluid overload / worsening respiratory function s/p fluid boluses -Now holding IVF -NC increased to 5L on reassessment -Wean NC as appropriate #Renal - AMANDA, gentle rehydration given CHF -Small IVF boluses as necessary for BP - now holding IVF for worsening respiratory status -Monitor lytes, replete as appropriate -Trend Cr: 1.8>1.6 #GI - s/p 3U PRBCs for UGIB -Was NPO, now advancing diet to clears -Monitor H&H, 7.9>7.3>9.0>8.2 -Protonix ggt -Transfuse as appropriate -Maintain active T&S -Monitor for BMs -Appreciate GI recs - plan for OP Colonoscopy #Heme/Onc - baseline anemia -Trend CBC #PPX: -SCDs #Dispo -Transfer to floor -Plan is for outpatient colonoscopy Visit type - Emergency Visit Emergency Visit: Yes ED Registration Date: 03/12/19 Care time: The patient presented to the Emergency Department on the above date and was hospitalized for further evaluation of their emergent condition. - New Patient This patient is new to me today: Yes Date on this admission: 03/14/19 - Critical Care Critical Care patient: Yes Total Critical Care Time (in minutes): 36 Critical Care Statement: The care of this patient involved high complexity decision making to prevent further life threatening deterioration of the patient 's condition and/or to evaluate & treat vital organ system(s) failure or risk of failure. ATTENDING PHYSICIAN STATEMENT I saw and evaluated the patient. I reviewed the resident's note and discussed the case with the resident. I agree with the resident's findings and plan as documented. SUBJECTIVE: OBJECTIVE: ASSESSMENT AND PLAN:
[2019-03-14] MEDS ORDERED: PT OWN MED DRAWER 7, Y5N ONE (09:04)
[2019-03-14] MEDS: LEVOTHYROXINE SODIUM 100 MCG VIAL IVPUSH SCH (10:12)
--- NOTE | 2019-03-14 11:04 | PN ---
Teaching Attending Note Name of Resident: Lokesh Howe ATTENDING PHYSICIAN STATEMENT I saw and evaluated the patient. I reviewed the resident's note and discussed the case with the resident. I agree with the resident's findings and plan as documented. SUBJECTIVE: Pt seen and examined in the ICU. No bleeding or BM. More short of breath with increasing oxygen requirements. CXR showing increased congestion and effusions. OBJECTIVE: Vital Signs Period Temp Pulse Resp BP Sys/Ten[place] Pulse Ox Last 24 Hr 97.2 F-97.5 F 59-87 12- 75-107/43-63 98-98 Intake & Output 03/11/19 03/12/19 03/13/19 03/14/19 23:59 23:59 23:59 23:59 Intake Total 307 2110 420 Output Total 550 1201 500 Balance -243 909 -80 Weight 56.654 kg 56.501 kg Gen: tachypneic at rest Heart: RRR Lung: bilateral rhonchi Abd: soft, nontender Ext: + edema CBC, BMP 03/14/19 06:49 03/14/19 06:49 Active Medications Carvedilol (Coreg -) 12.5 mg PO BID [facility] Pantoprazole Sodium 80 mg/ (Sodium Chloride) 100 mls @ 10 mls/hr IVPB Q10H [facility] Last Admin: 03/13/19 22:56 Dose: 10 mls/hr Dextrose/Sodium Chloride (D5-Ns -) 1,000 mls @ 50 mls/hr IV ASDIR [facility]KE Last Admin: 03/13/19 11:00 Dose: 50 mls/hr Isosorbide Mononitrate (Imdur -) 30 mg PO DAILY [facility] Last Admin: 03/13/19 13:46 Dose: 30 mg Latanoprost (Xalatan 0.005% Eye Drops -) 1 drop OU HS [facility] Last Admin: 03/13/19 22:55 Dose: 1 drop Levothyroxine Sodium (Synthroid Injection -) 50 mcg IVPUSH DAILY [facility] Last Admin: 03/14/19 10:12 Dose: 50 mcg ASSESSMENT AND PLAN: Acute Hypoxic Respiratory Failure GI Bleed Acute Blood Loss Anemia Acute Kidney Injury Thrombocytopenia h/o Colon Ca Atrial Fibrillation on anticoagulation Acute on Chronic Diastolic Heart Failure Volume Overload COPD Hypothyroidism HTN - monitor H/H - transfuse as needed - protonix - holding anticoagulation - d/c IVF - monitor urine output, creatinine - may need vasopressor support with lasix - CT A/P with contrast when renal function improved - PO per GI - DVT prophylaxis - continue ICU monitoring critical care time spent in reviewing chart, evalutating patient and formulating plan 35 min
[2019-03-14] MEDS ORDERED: FUROSEMIDE 40 MG/4 ML INJECTABLE VIAL IVPUSH ONE (11:05)
[2019-03-14] MEDS: PANTOPRAZOLE SODIUM 80 MG in SODIUM CHLORIDE 100 ML IVPB SCH ×3 (11:49→22:01)
--- NOTE | 2019-03-14 13:45 | PN.GI ---
GI Progress Note Subjective: GI NOte: Tolerating liquids. NO BMs. Feeling constipated but no vomiting - Objective Vital Signs: Vital Signs Temperature 97.2 F L 03/14/19 05:56 Pulse Rate 80 03/14/19 10:00 Respiratory Rate 18 03/14/19 10:00 Blood Pressure 85/59 L 03/14/19 10:00 O2 Sat by Pulse Oximetry (%) 90 L 03/14/19 09:00 Laboratory Tests 03/12/19 03/12/19 03/13/19 14:30 14:30 06:00 Hgb 5.5 L* 7.3 L BUN 82.1 H Creatinine 2.2 H Carcinoembryonic Ag 03/13/19 03/13/19 03/13/19 06:00 06:30 15:04 Hgb 9.0 L BUN 79.1 H Creatinine 1.8 H Carcinoembryonic Ag 3.2 03/14/19 03/14/19 06:49 06:49 Hgb 8.2 L BUN 56.1 H Creatinine 1.6 H Carcinoembryonic Ag Constitutional: Calm ...Auscultate: Yes: Normoactive Bowel Sounds ...Palpate: Yes: Soft, Other (nontender) Labs: CBC, BMP 03/14/19 06:49 03/14/19 06:49 INR, PTT INR 2.17 (0.83-1.09) H 03/13/19 06:30 Assessment/Plan Assessment: - UGI bleed subsided - Diverticulosis - History of ischemic colitis - Gallstone appears to be silent Plan: -- Full liquids -- Continue PPI drip -- For EGD tomorrow -- Can D/C ICU monitoring -- Colonoscopy when appropriate. I discussed this with Karli and she is in agreement to follow up in my office 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 - CONGENITAL MALFORMATION OF [place] UNSPECIFIED (7) ASHD (arteriosclerotic heart disease) Code(s): I25.10 - ATHSCL HEART DISEASE OF [place] CORONARY ARTERY W/O ANG PCTRS (8) COPD (chronic obstructive pulmonary disease) Code(s): J44.9 - CHRONIC OBSTRUCTIVE PULMONARY DISEASE, UNSPECIFIED (9) Colon cancer Code(s): C18.9 - MALIGNANT NEOPLASM OF COLON, UNSPECIFIED (10) Diverticulosis Code(s): K57.90 - DVRTCLOS OF INTEST, PART UNSP, W/O PERF OR ABSCESS W/O BLEED (11) Microcytic hypochromic anemia Code(s): D50.9 - IRON DEFICIENCY ANEMIA, UNSPECIFIED (12) Moderate to severe pulmonary hypertension Code(s): I27.2 - OTHER SECONDARY PULMONARY HYPERTENSION * DO NOT USE * (13) Peripheral edema Code(s): R60.9 - EDEMA, UNSPECIFIED (14) Renal dysfunction Code(s): N28.9 - DISORDER OF KIDNEY AND URETER, UNSPECIFIED (15) Severe mitral regurgitation Code(s): I34.0 - NONRHEUMATIC MITRAL (VALVE) INSUFFICIENCY (16) Atrial fibrillation Code(s): I48.91 - UNSPECIFIED ATRIAL FIBRILLATION Qualifiers: Atrial fibrillation type: unspecified Qualified Code(s): I48.91 - Unspecified atrial fibrillation (17) Hypertension Code(s): I10 - ESSENTIAL (PRIMARY) HYPERTENSION (18) NSTEMI (non-ST elevated myocardial infarction) Code(s): I21.4 - NON-ST ELEVATION (NSTEMI) MYOCARDIAL INFARCTION
[2019-03-14] MEDS ORDERED: MIDODRINE HCL 5 MG TABLET PO SCH (14:00)
--- NOTE | 2019-03-14 18:08 | PN ---
Progress Note (short form) - Note Progress Note: Patient is feeling better with no acute distress. No further bleed. patient feels well. Vital Signs Temperature 97.4 F L 03/14/19 14:00 Pulse Rate 80 03/14/19 14:00 Respiratory Rate 18 03/14/19 14:00 Blood Pressure 88/54 L 03/14/19 14:00 O2 Sat by Pulse Oximetry (%) 90 L 03/14/19 09:00 GENERAL: The patient is awake, alert, and fully oriented, in mild distress. HEAD: Normal with no signs of trauma. EYES: PERRL, extraocular movements intact, sclera anicteric, conjunctiva clear. ENT: Ears normal, oropharynx clear without exudates, moist mucous membranes. NECK: Trachea midline, full range of motion, supple. LUNGS: Breath sounds equal, clear to auscultation bilaterally, no wheezes, no crackles, no accessory muscle use. HEART: Irregularly-irregular , rate of 76 , S1, S2 positive, ALEJANDRO 3/6 lsb, NO rub or gallop. ABDOMEN: Soft, nt,nd, normoactive bowel sounds, no guarding, no rebound, no hepatosplenomegaly, no masses. EXTREMITIES: 2+ pulses, warm, well-perfused, no edema. NEUROLOGICAL: Cranial nerves II through XII grossly intact. Normal speech, gait not observed. PSYCH: Normal mood, normal affect. SKIN: Warm, dry, normal turgor, no rashes or lesions noted CBCD WBC 3.4 K/mm3 (4.0-10.0) L 03/14/19 06:49 RBC 2.76 M/mm3 (3.60-5.2) L 03/14/19 06:49 Hgb 8.2 GM/dL (10.7-15.3) L 03/14/19 06:49 Hct 24.3 % (32.4-45.2) L 03/14/19 06:49 MCV 88.0 fl (80-96) 03/14/19 06:49 MCHC 33.6 g/dl (32.0-36.0) 03/14/19 06:49 RDW 18.4 % (11.6-15.6) H 03/14/19 06:49 Plt Count 102 K/MM3 (134-434) L 03/14/19 06:49 MPV 8.3 fl (7.5-11.1) 03/14/19 06:49 CMP Sodium 141 mmol/L (136-145) 03/14/19 06:49 Potassium 3.5 mmol/L (3.5-5.1) 03/14/19 06:49 Chloride 109 mmol/L (98-107) H 03/14/19 06:49 Carbon Dioxide 28 mmol/L (21-32) 03/14/19 06:49 Anion Gap 5 MMOL/L (8-16) L 03/14/19 06:49 BUN 56.1 mg/dL (7-18) H 03/14/19 06:49 Creatinine 1.6 mg/dL (0.55-1.3) H 03/14/19 06:49 Random Glucose 97 mg/dL (74-106) 03/14/19 06:49 Calcium 8.0 mg/dL (8.5-10.1) L 03/14/19 06:49 Total Bilirubin 1.8 mg/dL (0.2-1) H 03/13/19 06:00 AST 8 U/L (15-37) L 03/13/19 06:00 ALT 9 U/L (13-61) L 03/13/19 06:00 Alkaline Phosphatase 43 U/L (45-117) L 03/13/19 06:00 Total Protein 5.9 g/dl (6.4-8.2) L 03/13/19 06:00 Albumin 3.1 g/dl (3.4-5.0) L 03/13/19 06:00 CARDIAC ENZYMES Creatine Kinase 45 U/L (26-192) 03/12/19 14:30 Troponin I 0.02 ng/ml (0.00-0.05) 03/12/19 14:30 Current Medications Generic Name Dose Route Start Last Admin Trade Name Freq PRN Reason Stop Dose Admin Carvedilol 12.5 mg 03/14/19 22:00 Coreg - PO BID LUKE Pantoprazole Sodium 80 mg/ 100 mls @ 10 mls/hr 03/15/19 03:45 Sodium Chloride IVPB Q10H LUKE 8 MG/HR Isosorbide Mononitrate 30 mg 03/15/19 10:00 Imdur - PO DAILY LUKE Latanoprost 1 drop 03/14/19 22:00 Xalatan 0.005% Eye Drops - OU HS [facility] Levothyroxine Sodium 50 mcg 03/15/19 10:00 Synthroid Injection - IVPUSH DAILY [facility] Midodrine 10 mg 03/14/19 18:00 Proamatine - PO TID-MID [facility] Polyethylene Glycol 17 gm 03/14/19 22:00 Miralax (For Daily Use) - PO BID [facility] Home Medications Medication Instructions Recorded Atorvastatin Ca [Lipitor] 40 mg PO HS 10/19/17 Carvedilol [Coreg] 12.5 mg PO BID 10/19/17 Latanoprost 0.005% Eye Drops 1 drop OU HS 10/19/17 [Xalatan 0.005% Eye Drops -] Levothyroxine Sodium [Synthroid] 100 mcg PO DAILY 10/19/17 Isosorbide Mononitrate [Isosorbide 30 mg PO DAILY 11/25/17 Mononitrate ER] Apixaban [Eliquis -] 2.5 mg PO BID #60 tablet 12/04/17 Furosemide [Lasix -] 80 mg PO BID@0600,1400 03/12/19 Lisinopril 10 mg PO DAILY 03/12/19 Laboratory Tests 03/12/19 03/12/19 03/12/19 14:30 14:30 14:30 WBC 3.0 L RBC 1.89 L Hgb 5.5 L* Plt Count 115 L D PT with INR 33.10 H INR 2.78 H PTT (Actin FS) 37.6 H BUN 82.1 H Creatinine 2.2 H Stool Occult Blood 03/12/19 14:30 WBC RBC Hgb Plt Count PT with INR INR PTT (Actin FS) BUN Creatinine Stool Occult Blood Positive ASSESSMENT AND PLAN: Patient is an 82yo Female with PMHx D.CHF, Afib on NOac , colon ca s/p resection, COPD, CAD s/p stent presented to the ER with acute GIB #s/p UGIB : on Protonix drip continue as per GI, continue to HOLD ELIQUIS for now, s/p transfusions, stable at this time s/p FFp, Prbc,GI , s/p platelet transfusion i n ED. Colonoscopy and further procedure as per GI once patient is stable , clear liquid diet for now. #ARF prerenal due to Acute GIB # Acute on CHronic diastolic CHF, lasix in b/t transfusion , cardio dr escudero # Hx of afib: dc Eliquis since having acute GIB , hold bp meds for now, since hypotensive # hx of Colon ca s/p resection # hypothyroid- continue levothyroxine # CAD s/p stent- not on any antiplatelet due to GI bleeding. # hx of 7th rib fracture # hx of UTI Klebsiella Pneumoniae GI px: protonix drip DVT px: Scds Clear liquids Colonoscopy when appropriate. patient to follow up with when gets discharge home. Visit type - Emergency Visit Emergency Visit: Yes ED Registration Date: 03/12/19 Care time: The patient presented to the Emergency Department on the above date and was hospitalized for further evaluation of their emergent condition. - New Patient This patient is new to me today: No - Critical Care Critical Care patient: No - Discharge Referral Referred to [facility] Med P.C.: No
[2019-03-14] MEDS: DEXTROSE 5%-NORMAL SALINE 1,000 ML IV SCH (18:57)
[2019-03-14] MEDS: DEXTROSE 5%-0.45% SALINE 1,000 ML IV SCH (20:52)
[2019-03-14] MEDS: MIDODRINE HCL 5 MG TABLET PO SCH (20:53)
[2019-03-14] MEDS: CARVEDILOL 12.5 MG TABLET (FP) PO SCH (22:00)
[2019-03-14] MEDS: POLYETHYLENE GLYCOL 3350 119 GM BTL PO SCH (23:05)
[2019-03-14] MEDS: LATANOPROST 0.005% OPHTH SOLN 2.5ML BOTTLE OU SCH (23:15)
[2019-03-15] MEDS ORDERED: SODIUM CHLORIDE 500 ML IV STA (01:37)
[2019-03-15] MEDS: PANTOPRAZOLE SODIUM 80 MG in SODIUM CHLORIDE 100 ML IVPB SCH ×2 (02:49→09:04)
[2019-03-15 08:37] LABS: BASO % 1.2 % (0-2.0); EOS % 5.3 % (0-4.5); HEMATOCRIT 26.2 % (32.4-45.2); HEMOGLOBIN 8.6 GM/dL (10.7-15.3); LYMPH % 10.8 % (8-40); MCH 28.9 pg (25.7-33.7); MCHC 32.7 g/dl (32.0-36.0); MEAN CELL VOLUME 88.6 fl (80-96); MEAN PLT VOLUME 8.5 fl (7.5-11.1); MONO % 14.5 % (3.8-10.2); NEUT % 68.2 % (42.8-82.8); PLATELET COUNT 104 K/MM3 (134-434); RBC 2.96 M/mm3 (3.60-5.2); RDW 18.1 % (11.6-15.6); WHITE BLOOD COUNT 4.3 K/mm3 (4.0-10.0)
[2019-03-15] MEDS: CARVEDILOL 12.5 MG TABLET (FP) PO SCH ×2 (09:03→23:41)
[2019-03-15] MEDS: POLYETHYLENE GLYCOL 3350 119 GM BTL PO SCH ×2 (09:05→23:53)
[2019-03-15 09:09] LABS: ALBUMIN 2.8 g/dl (3.4-5.0); BILIRUBIN,TOTAL 1.4 mg/dL (0.2-1); CALCIUM 8.1 mg/dL (8.5-10.1); CREATININE 1.4 mg/dL (0.55-1.3); MAGNESIUM 1.8 mg/dL (1.8-2.4); PHOSPHOROUS 3.2 mg/dL (2.5-4.9); POTASSIUM 3.5 mmol/L (3.5-5.1); TOT PROT 5.6 g/dl (6.4-8.2)
[2019-03-15] MEDS: ISOSORBIDE MONONITRATE 30 MG TAB.SR.24H (FP) PO SCH (09:12)
[2019-03-15] MEDS: MIDODRINE HCL 5 MG TABLET PO SCH ×2 (09:12→21:33)
[2019-03-15] MEDS ORDERED: MIDAZOLAM HCL 2 MG/2 ML SINGLE DOSE VIAL ONE (10:35)
[2019-03-15] MEDS ORDERED: ALBUTEROL SO4 0.083% IH SOL 2.5 MG/3 ML VIAL.NEB. NEB ONE ×2 (11:31→12:04)
--- NOTE | 2019-03-15 12:09 | PN ---
Progress Note (short form) - Note Progress Note: Pt had an upper endoscopy for anemia/suspected UGI bleed. During the procedure , minimal sedation was given, but despite this, the pt's BP and SpO2 dropped significantly during the EGD (BP to 50s systolic, SpO2 to 80s); EGD was aborted , pt was ambubagged and vasopressors were given. BP and SpO2 normalized after manual ambubag. FM placed, pt brought to recovery in stable condition. Cardiology and pulmonary will be consulted
--- NOTE | 2019-03-15 12:27 | PN ---
Progress Note (short form) - Note Progress Note: GI NOte: Please see EGD report. The bleeding site is felt to be a resolving duodenitis and perhaps small healed ulcer. The patient became hypoxemic and hypotensive during the procedure which was managed with prompt ambubagging, IV fluid epinephrine and a respiratory treatment. I have discussed the case with Dr Ruvalcaba and Dr Ramirez. Karli will be transferred back to the ICU to manage her cardiac and respiratory issues. Will advance diet and switch to po PPI. 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 - CONGENITAL MALFORMATION OF AORTA UNSPECIFIED (7) ASHD (arteriosclerotic heart disease) Code(s): I25.10 - ATHSCL HEART DISEASE OF [place] CORONARY ARTERY W/O ANG PCTRS (8) COPD (chronic obstructive pulmonary disease) Code(s): J44.9 - CHRONIC OBSTRUCTIVE PULMONARY DISEASE, UNSPECIFIED (9) Colon cancer Code(s): C18.9 - MALIGNANT NEOPLASM OF COLON, UNSPECIFIED (10) Diverticulosis Code(s): K57.90 - DVRTCLOS OF INTEST, PART UNSP, W/O PERF OR ABSCESS W/O BLEED (11) Microcytic hypochromic anemia Code(s): D50.9 - IRON DEFICIENCY ANEMIA, UNSPECIFIED (12) Moderate to severe pulmonary hypertension Code(s): I27.2 - OTHER SECONDARY PULMONARY HYPERTENSION * DO NOT USE * (13) Peripheral edema Code(s): R60.9 - EDEMA, UNSPECIFIED (14) Renal dysfunction Code(s): N28.9 - DISORDER OF KIDNEY AND URETER, UNSPECIFIED (15) Severe mitral regurgitation Code(s): I34.0 - NONRHEUMATIC MITRAL (VALVE) INSUFFICIENCY (16) Atrial fibrillation Code(s): I48.91 - UNSPECIFIED ATRIAL FIBRILLATION Qualifiers: Atrial fibrillation type: unspecified Qualified Code(s): I48.91 - Unspecified atrial fibrillation (17) Hypertension Code(s): I10 - ESSENTIAL (PRIMARY) HYPERTENSION (18) NSTEMI (non-ST elevated myocardial infarction) Code(s): I21.4 - NON-ST ELEVATION (NSTEMI) MYOCARDIAL INFARCTION
--- NOTE | 2019-03-15 13:07 | CON.CARD ---
Consult Consult Specialty:: Cardiology Reason for Consultation:: hypotension during EGD - History of Present Illness History of Present Illness: Patient is an 83 y/o Female with a PMhx of atrial fibrillation (on Eliquis), HTN, COPD, NSTEMI s/p stent placement, CAD, HFpEF (EF55% 11/2017), and colon cancer who presented to ED.for having generalized weakness x 1 week. Patient stated that she noticed dark, tarry stools. Patient lives by herself and is very active. while in Ed. was found to have low blood pressure and positive for tarry stool, with shortness of breath. - History Source History Provided By: Patient, Medical Record - Past Medical History Cardio/Vascular: Yes: AFIB, CAD (multiple coronary stents [place] [facility] [place]STEM[place] 2015), CHF (diastolic , ech EFs 40-55% but has severe MR), HTN, Hyperlipdemia, [place] (NSTEMI 2015), Mitral Insufficiency (serever MR and TR. Valve replacement was advised at [facility] [place] but she refused.), Murmur, Pulmonary Hypertension Pulmonary: Yes: COPD, O2 Dependent Gastrointestinal: Yes: Cancer (adenocarcinoma within a 1.5cm hepatic flexure tubular adenoma removed during 04/06 colonoscopy ( 1.5mm to excision margin)), Constipation, Diverticulosis, Gastritis (04/06 EGD), GERD, Hiatal Hernia Hepatobiliary: Yes: Cholelithiasis Renal/: Yes: Renal Inusuff Psych: Yes: Anxiety Musculoskeletal: Yes: Other (lumbar disc disease and fractures, rib fractures) Endocrine: Yes: Hypothyroidism Additional Medical History: Glaucoma - Past Surgical History Past Surgical History: Yes: Cataract Removal (left), Colonoscopy, Stent ( coronary stenst 2015 [facility] [place] Upper Endoscopy - Alcohol/Substance Use Hx Alcohol Use: No History of Substance Use: reports: None - Smoking History Smoking history: Former smoker Have you smoked in the past 12 months: No Aproximately how many cigarettes per day: 40 If you are a former smoker, when did you quit?: 23 YEARS AGO - Social History Usual Living Arrangement: Alone (never ) ADL: Independent Occupation: retired form [employer] History of Recent Travel: No Home Medications - Allergies Allergies/Adverse Reactions: Allergies Allergy/AdvReac Type Severity Reaction Status Date / Time cephalexin [Cephalexin] Allergy Intermediate Rash Verified 03/12/19 13:40 clindamycin Allergy Intermediate Rash Verified 03/12/19 13:40 naproxen [From Naprosyn] Allergy Intermediate ANKLES Verified 03/12/19 13:40 SWELLED UP Penicillins Allergy Intermediate Rash Verified 03/12/19 13:40 diphenhydramine HCl AdvReac CAN'T Verified 03/12/19 13:40 [From Benadryl] HAVE,HAS GLAUCOMA - Home Medications Home Medications: Ambulatory Orders Atorvastatin Ca [Lipitor] 40 mg PO HS 10/19/17 Carvedilol [Coreg] 12.5 mg PO BID 10/19/17 Latanoprost 0.005% Eye Drops [Xalatan 0.005% Eye Drops -] 1 drop OU HS 10/19/17 Levothyroxine Sodium [Synthroid] 100 mcg PO DAILY 10/19/17 Isosorbide Mononitrate [Isosorbide Mononitrate ER] 30 mg PO DAILY 11/25/17 Apixaban [Eliquis -] 2.5 mg PO BID #60 tablet 12/04/17 Furosemide [Lasix -] 80 mg PO BID@0600,1400 03/12/19 Levothyroxine [Synthroid -] 88 mcg PO DAILY #30 tablet 03/12/19 Lisinopril 10 mg PO DAILY 03/12/19 Review of Systems - Review of Systems Constitutional: reports: No Symptoms Eyes: reports: No Symptoms HENT: reports: No Symptoms Neck: reports: No Symptoms Cardiovascular: reports: No Symptoms, Shortness of Breath Respiratory: reports: SOB on Exertion Gastrointestinal: reports: Melena Genitourinary: reports: No Symptoms Breasts: reports: No Symptoms Reported Musculoskeletal: reports: No Symptoms Integumentary: reports: No Symptoms Neurological: reports: No Symptoms Endocrine: reports: No Symptoms Hematology/Lymphatic: reports: No Symptoms Psychiatric: reports: No Symptoms Vital Signs: Vital Signs Temperature 97.9 F 03/15/19 11:55 Pulse Rate 89 03/15/19 12:25 Respiratory Rate 19 03/15/19 12:25 Blood Pressure 115/85 03/15/19 12:25 O2 Sat by Pulse Oximetry (%) 96 03/15/19 12:25 Constitutional: Yes: Well Nourished, No Distress, Calm Eyes: Yes: WNL, Conjunctiva Clear, EOM Intact HENT: Yes: WNL, Atraumatic, Normocephalic Neck: Yes: WNL, Supple, Trachea Midline Respiratory: Yes: WNL, Regular, CTA Bilaterally Gastrointestinal: Yes: WNL, Normal Bowel Sounds Renal/: Yes: WNL Cardiovascular: Yes: WNL, Pulse Irregular Musculoskeletal: Yes: WNL Extremities: Yes: WNL Integumentary: Yes: WNL Neurological: Yes: WNL, Alert, Oriented ...Motor Strength: WNL Psychiatric: Yes: WNL, Alert, Oriented - Other Data Labs, Other Data: CBC, BMP 03/15/19 07:10 03/15/19 07:10 INR, PTT INR 2.17 (0.83-1.09) H 03/13/19 06:30 Imaging - Results Chest X-ray: Image Reviewed (no i/e) EKG: Image Reviewed (af right axis) Problem List - Problems (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 - CONGENITAL MALFORMATION OF [place] UNSPECIFIED (2) Colon adenoma Code(s): D12.6 - BENIGN NEOPLASM OF COLON, UNSPECIFIED (3) GI bleed Code(s): K92.2 - GASTROINTESTINAL HEMORRHAGE, UNSPECIFIED (4) Gallstones Code(s): K80.20 - CALCULUS OF GALLBLADDER W/O CHOLECYSTITIS W/O OBSTRUCTION (5) Gastrointestinal hemorrhage with melena Code(s): K92.1 - MELENA (6) Hiatal hernia Code(s): K44.9 - DIAPHRAGMATIC HERNIA WITHOUT OBSTRUCTION OR GANGRENE (7) Hypothyroid Code(s): E03.9 - HYPOTHYROIDISM, UNSPECIFIED (8) AMANDA (acute kidney injury) Code(s): N17.9 - ACUTE KIDNEY FAILURE, UNSPECIFIED (9) ASHD (arteriosclerotic heart disease) Code(s): I25.10 - ATHSCL HEART DISEASE OF [place] CORONARY ARTERY W/O ANG PCTRS (10) Acute on chronic systolic (congestive) heart failure Code(s): I50.23 - ACUTE ON CHRONIC SYSTOLIC (CONGESTIVE) HEART FAILURE (11) Acute on chronic systolic and diastolic heart failure, NYHA class 3 Code(s): I50.43 - ACUTE ON CHRONIC COMBINED SYSTOLIC AND DIASTOLIC HRT FAIL (12) Ankle pain, left Code(s): M25.572 - PAIN IN LEFT ANKLE AND JOINTS OF LEFT FOOT (13) Anxiety Code(s): F41.9 - ANXIETY DISORDER, UNSPECIFIED (14) Breast pain in female Code(s): N64.4 - MASTODYNIA (15) CHF (congestive heart failure) Code(s): I50.9 - HEART FAILURE, UNSPECIFIED Qualifiers: Heart failure type: unspecified Heart failure chronicity: chronic Qualified Code(s): I50.9 - Heart failure, unspecified (16) COPD (chronic obstructive pulmonary disease) Code(s): J44.9 - CHRONIC OBSTRUCTIVE PULMONARY DISEASE, UNSPECIFIED (17) COPD exacerbation Code(s): J44.1 - CHRONIC OBSTRUCTIVE PULMONARY DISEASE W (ACUTE) EXACERBATION (18) COPD mixed type Code(s): J44.9 - CHRONIC OBSTRUCTIVE PULMONARY DISEASE, UNSPECIFIED (19) Chest pain Code(s): R07.9 - CHEST PAIN, UNSPECIFIED Qualifiers: Chest pain type: unspecified Qualified Code(s): R07.9 - Chest pain, unspecified (20) Colon cancer Code(s): C18.9 - MALIGNANT NEOPLASM OF COLON, UNSPECIFIED (21) Community acquired pneumonia Code(s): J18.9 - PNEUMONIA, UNSPECIFIED ORGANISM (22) Contusion of rib on right side Code(s): S20.211A - CONTUSION OF RIGHT FRONT WALL OF THORAX, INITIAL ENCOUNTER (23) DVT prophylaxis Code(s): [id number] - (24) Diverticulosis Code(s): K57.90 - DVRTCLOS OF INTEST, PART UNSP, W/O PERF OR ABSCESS W/O BLEED (25) Elevated glucose Code(s): R73.09 - OTHER ABNORMAL GLUCOSE (26) Elevated lactic acid level Code(s): E87.2 - ACIDOSIS (27) Elevated troponin Code(s): R79.89 - OTHER SPECIFIED ABNORMAL FINDINGS OF BLOOD CHEMISTRY (28) Elevated troponin I level Code(s): R79.89 - OTHER SPECIFIED ABNORMAL FINDINGS OF BLOOD CHEMISTRY (29) [place] cardiac risk >20% in next 10 years Code(s): Z91.89 - OT PERSONAL RISK FACTORS, NOT ELSEWHERE CLASSIFIED (30) Hyponatremia Code(s): E87.1 - HYPO-OSMOLALITY AND HYPONATREMIA (31) Hypotension Code(s): I95.9 - HYPOTENSION, UNSPECIFIED Qualifiers: Hypotension type: unspecified hypotension type Qualified Code(s): I95.9 - Hypotension, unspecified (32) Hypoxia Code(s): R09.02 - HYPOXEMIA (33) Lactic acid acidosis Code(s): E87.2 - ACIDOSIS (34) Microcytic hypochromic anemia Code(s): D50.9 - IRON DEFICIENCY ANEMIA, UNSPECIFIED (35) Moderate to severe pulmonary hypertension Code(s): I27.2 - OTHER SECONDARY PULMONARY HYPERTENSION * DO NOT USE * (36) Pericardial effusion Code(s): I31.3 - PERICARDIAL EFFUSION (NONINFLAMMATORY) (37) Periorbital hematoma of left eye Code(s): H05.232 - HEMORRHAGE OF LEFT ORBIT (38) Peripheral edema Code(s): R60.9 - EDEMA, UNSPECIFIED (39) Plantar fasciitis Code(s): M72.2 - PLANTAR FASCIAL FIBROMATOSIS (40) Pleural effusion Code(s): J90 - PLEURAL EFFUSION, NOT ELSEWHERE CLASSIFIED (41) Pneumonia Code(s): J18.9 - PNEUMONIA, UNSPECIFIED ORGANISM (42) Renal dysfunction Code(s): N28.9 - DISORDER OF KIDNEY AND URETER, UNSPECIFIED (43) Respiratory distress Code(s): R06.00 - DYSPNEA, UNSPECIFIED (44) Respiratory failure Code(s): J96.90 - RESPIRATORY FAILURE, UNSP, UNSP W HYPOXIA OR HYPERCAPNIA (45) Sepsis Code(s): A41.9 - SEPSIS, UNSPECIFIED ORGANISM (46) Sepsis due to pneumonia Code(s): J18.9 - PNEUMONIA, UNSPECIFIED ORGANISM; A41.9 - SEPSIS, UNSPECIFIED ORGANISM (47) Severe mitral regurgitation Code(s): I34.0 - NONRHEUMATIC MITRAL (VALVE) INSUFFICIENCY (48) Anemia Code(s): D64.9 - ANEMIA, UNSPECIFIED Qualifiers: Anemia type: unspecified type Qualified Code(s): D64.9 - Anemia, unspecified (49) Atrial fibrillation Code(s): I48.91 - UNSPECIFIED ATRIAL FIBRILLATION Qualifiers: Atrial fibrillation type: unspecified Qualified Code(s): I48.91 - Unspecified atrial fibrillation (50) Hypertension Code(s): I10 - ESSENTIAL (PRIMARY) HYPERTENSION (51) NSTEMI (non-ST elevated myocardial infarction) Code(s): I21.4 - NON-ST ELEVATION (NSTEMI) MYOCARDIAL INFARCTION Assessment/Plan atrial fibrillation (on Eliquis), HTN, COPD, NSTEMI s/p stent placement, CAD, HFpEF (EF55% 11/2017), and colon cancer admitted with GI bleed, developed hypotension requiring pressors during endoscopy. Plan; Monitor in ICU pressors as needed ekg GI f/u monitor HCT CC time spent 70 min
--- NOTE | 2019-03-15 16:51 | PN ---
Physical Exam: SUBJECTIVE: Patient seen and examined prior to EGD. She denied chest pain, palpitations, abdominal pain, n/v. She had a BM last night that was dark. OBJECTIVE: Vital Signs Period Temp Pulse Resp BP Sys/[place] Pulse Ox Last 24 Hr 97.3 F-98.2 F 70-110 17-22 74-120/45-85 90-99 GENERAL: The patient is awake, alert, and fully oriented, in no acute distress. HEAD: Normal with no signs of trauma. EYES: PERRL, extraocular movements intact, conjunctiva clear. ENT: Ears normal, nares patent, moist mucous membranes. NECK: Trachea midline, full range of motion LUNGS: Clear to auscultation bilaterally, no wheezes HEART: Regular rate and rhythm, no murmur ABDOMEN: Soft, nontender, nondistended, normoactive bowel sounds, no guarding, no rebound, no hepatosplenomegaly, no masses. EXTREMITIES: 2+ pulses, warm, well-perfused, no edema. NEUROLOGICAL: Cranial nerves II through XII grossly intact. Normal speech, gait not observed. PSYCH: Normal mood, normal affect. SKIN: Warm, dry, normal turgor, no rashes or lesions noted Laboratory Results - last 24 hr 03/15/19 03/15/19 07:10 07:10 WBC 4.3 RBC 2.96 L Hgb 8.6 L Hct 26.2 L MCV 88.6 MCH 28.9 MCHC 32.7 RDW 18.1 H Plt Count 104 L MPV 8.5 Absolute Neuts (auto) 2.9 Neutrophils % 68.2 Lymphocytes % 10.8 Monocytes % 14.5 H Eosinophils % 5.3 H Basophils % 1.2 Nucleated RBC % 0 Sodium 141 Potassium 3.5 Chloride 108 H Carbon Dioxide 27 Anion Gap 6 L BUN 42.0 H Creatinine 1.4 H Est GFR (CKD-EPI)AfAm 39.61 Est GFR (CKD-EPI)NonAf 34.18 Random Glucose 87 Calcium 8.1 L Phosphorus 3.2 Magnesium 1.8 Total Bilirubin 1.4 H AST 5 L ALT 6 L Alkaline Phosphatase 42 L Total Protein 5.6 L Albumin 2.8 L Active Medications Generic Name Dose Route Start Last Admin Trade Name Freq PRN Reason Stop Dose Admin Carvedilol 12.5 mg 03/14/19 22:00 03/15/19 09:03 Coreg - PO Not Given BID LUKE Dextrose/Sodium Chloride 1,000 mls @ 42 mls/hr 03/14/19 19:45 03/14/19 20:52 D5-1/2ns - IV 42 mls/hr ASDIR LUKE Administration Isosorbide Mononitrate 30 mg 03/15/19 10:00 03/15/19 09:12 Imdur - PO 30 mg DAILY LUKE Administration Latanoprost 1 drop 03/14/19 22:00 03/14/19 23:15 Xalatan 0.005% Eye Drops - OU Not Given HS LUKE Levothyroxine Sodium 50 mcg 03/15/19 10:00 Synthroid Injection - IVPUSH DAILY LUKE Midodrine 10 mg 03/14/19 18:00 03/15/19 09:12 Proamatine - PO 10 mg TID-MID LUKE Administration Pantoprazole Sodium 40 mg 03/15/19 22:00 Protonix - PO BID LUKE Polyethylene Glycol 17 gm 03/14/19 22:00 03/15/19 09:05 Miralax (For Daily Use) - PO Not Given BID LUKE ASSESSMENT/PLAN: Ms. Leiva is an 83y/o female with afib (on Eliquis), HTN, COPD, NSTEMI s/p stent, CAD, HFpEF (EF55% 11/2017), and colon cancer who presents with weakness x 1 week. Pt was found to be hypotensive and anemic (5.5). #normocytic anemia 2/2 resolving duodenitis and possible small ulcer, s/p transfusion Hb 8.6 today. Pt became hypotensive and hypoxic during EGD but improved with epi and ambu-bagging. She is now stable in ICU for monitoring. -midodrine -PO protonix #glaucoma -latanoprost #HTN -monitor pressure -cavedilol as tolerated #hypothyroidism -Synthroid #HFpEF -imdur FEN D5 1/2 NS 42mL/hr monitor labs sodium controlled diet Visit type - Emergency Visit Emergency Visit: Yes ED Registration Date: 03/12/19 Care time: The patient presented to the Emergency Department on the above date and was hospitalized for further evaluation of their emergent condition. - New Patient This patient is new to me today: Yes Date on this admission: 03/15/19 - Critical Care Critical Care patient: No - Discharge Referral Referred to [facility] Med P.C.: No ATTENDING PHYSICIAN STATEMENT I saw and evaluated the patient. I reviewed the resident's note and discussed the case with the resident. I agree with the resident's findings and plan as documented. SUBJECTIVE: OBJECTIVE: ASSESSMENT AND PLAN:
--- NOTE | 2019-03-15 19:44 | PN ---
Teaching Attending Note Name of Resident: Bernice Garcia ATTENDING PHYSICIAN STATEMENT I saw and evaluated the patient. I reviewed the resident's note and discussed the case with the resident. I agree with the resident's findings and plan as documented. SUBJECTIVE: Patient s/p colonoscopy was called since became hypoxic with pulmonary edema and congestion , given neb treatment , patient became comfortable but cxr positive for pulmonary effusion. Vital Signs Temperature 97.9 F 03/15/19 11:55 Pulse Rate 105 H 03/15/19 17:54 Respiratory Rate 20 03/15/19 17:54 Blood Pressure 116/79 03/15/19 17:54 O2 Sat by Pulse Oximetry (%) 94 L 03/15/19 17:54 GENERAL: The patient is awake, alert, and fully oriented, in mild distress. HEAD: Normal with no signs of trauma. EYES: PERRL, extraocular movements intact, sclera anicteric, conjunctiva clear. ENT: Ears normal, oropharynx clear without exudates, moist mucous membranes. NECK: Trachea midline, full range of motion, supple. LUNGS: decreased BS BL, decreased air entery bl , positive for rales , no wheezes, no crackles, no accessory muscle use. HEART: Irregularly-irregular , rate of 76 , S1, S2 positive, ALEJANDRO 3/6 lsb, NO rub or gallop. ABDOMEN: Soft, nt,nd, normoactive bowel sounds, no guarding, no rebound, no hepatosplenomegaly, no masses. EXTREMITIES: 2+ pulses, warm, well-perfused, no edema. NEUROLOGICAL: Cranial nerves II through XII grossly intact. Normal speech, gait not observed. PSYCH: Normal mood, normal affect. SKIN: Warm, dry, normal turgor, no rashes or lesions noted CBCD WBC 4.3 K/mm3 (4.0-10.0) 03/15/19 07:10 RBC 2.96 M/mm3 (3.60-5.2) L 03/15/19 07:10 Hgb 8.6 GM/dL (10.7-15.3) L 03/15/19 07:10 Hct 26.2 % (32.4-45.2) L 03/15/19 07:10 MCV 88.6 fl (80-96) 03/15/19 07:10 MCHC 32.7 g/dl (32.0-36.0) 03/15/19 07:10 RDW 18.1 % (11.6-15.6) H 03/15/19 07:10 Plt Count 104 K/MM3 (134-434) L 03/15/19 07:10 MPV 8.5 fl (7.5-11.1) 03/15/19 07:10 CMP Sodium 141 mmol/L (136-145) 03/15/19 07:10 Potassium 3.5 mmol/L (3.5-5.1) 03/15/19 07:10 Chloride 108 mmol/L (98-107) H 03/15/19 07:10 Carbon Dioxide 27 mmol/L (21-32) 03/15/19 07:10 Anion Gap 6 MMOL/L (8-16) L 03/15/19 07:10 BUN 42.0 mg/dL (7-18) H 03/15/19 07:10 Creatinine 1.4 mg/dL (0.55-1.3) H 03/15/19 07:10 Random Glucose 87 mg/dL (74-106) 03/15/19 07:10 Calcium 8.1 mg/dL (8.5-10.1) L 03/15/19 07:10 Total Bilirubin 1.4 mg/dL (0.2-1) H 03/15/19 07:10 AST 5 U/L (15-37) L 03/15/19 07:10 ALT 6 U/L (13-61) L 03/15/19 07:10 Alkaline Phosphatase 42 U/L (45-117) L 03/15/19 07:10 Total Protein 5.6 g/dl (6.4-8.2) L 03/15/19 07:10 Albumin 2.8 g/dl (3.4-5.0) L 03/15/19 07:10 CARDIAC ENZYMES Creatine Kinase 45 U/L (26-192) 03/12/19 14:30 Troponin I 0.02 ng/ml (0.00-0.05) 03/12/19 14:30 Home Medications Medication Instructions Recorded Atorvastatin Ca [Lipitor] 40 mg PO HS 10/19/17 Carvedilol [Coreg] 12.5 mg PO BID 10/19/17 Latanoprost 0.005% Eye Drops 1 drop OU HS 10/19/17 [Xalatan 0.005% Eye Drops -] Levothyroxine Sodium [Synthroid] 100 mcg PO DAILY 10/19/17 Isosorbide Mononitrate [Isosorbide 30 mg PO DAILY 11/25/17 Mononitrate ER] Apixaban [Eliquis -] 2.5 mg PO BID #60 tablet 12/04/17 Furosemide [Lasix -] 80 mg PO BID@0600,1400 03/12/19 Lisinopril 10 mg PO DAILY 03/12/19 Laboratory Tests 03/12/19 03/12/19 03/12/19 14:30 14:30 14:30 WBC 3.0 L RBC 1.89 L Hgb 5.5 L* Plt Count 115 L D PT with INR 33.10 H INR 2.78 H PTT (Actin FS) 37.6 H BUN 82.1 H Creatinine 2.2 H Stool Occult Blood 03/12/19 14:30 WBC RBC Hgb Plt Count PT with INR INR PTT (Actin FS) BUN Creatinine Stool Occult Blood Positive Current Medications Generic Name Dose Route Start Last Admin Trade Name Freq PRN Reason Stop Dose Admin Carvedilol 12.5 mg 03/14/19 22:00 03/15/19 09:03 Coreg - PO Not Given BID [facility] Dextrose/Sodium Chloride 1,000 mls @ 42 mls/hr 03/14/19 19:45 03/14/19 20:52 D5-1/2ns - IV 42 mls/hr ASDIR [facility] Administration Isosorbide Mononitrate 30 mg 03/15/19 10:00 03/15/19 09:12 Imdur - PO 30 mg DAILY [facility] Administration Latanoprost 1 drop 03/14/19 22:00 03/14/19 23:15 Xalatan 0.005% Eye Drops - OU Not Given HS LUKE Levothyroxine Sodium 50 mcg 03/15/19 10:00 Synthroid Injection - IVPUSH DAILY [facility] Midodrine 10 mg 03/14/19 18:00 03/15/19 09:12 Proamatine - PO 10 mg TID-MID [facility] Administration Pantoprazole Sodium 40 mg 03/15/19 22:00 Protonix - PO BID [facility] Polyethylene Glycol 17 gm 03/14/19 22:00 03/15/19 09:05 Miralax (For Daily Use) - PO Not Given BID [facility] Home Medications Medication Instructions Recorded Atorvastatin Ca [Lipitor] 40 mg PO HS 10/19/17 Carvedilol [Coreg] 12.5 mg PO BID 10/19/17 Latanoprost 0.005% Eye Drops 1 drop OU HS 10/19/17 [Xalatan 0.005% Eye Drops -] Levothyroxine Sodium [Synthroid] 100 mcg PO DAILY 10/19/17 Isosorbide Mononitrate [Isosorbide 30 mg PO DAILY 11/25/17 Mononitrate ER] Apixaban [Eliquis -] 2.5 mg PO BID #60 tablet 12/04/17 Furosemide [Lasix -] 80 mg PO BID@0600,1400 03/12/19 Levothyroxine [Synthroid -] 88 mcg PO DAILY #30 tablet 03/12/19 Lisinopril 10 mg PO DAILY 03/12/19 ASSESSMENT AND PLAN: Patient is an 82yo Female with PMHx D.CHF, Afib on NOac , colon ca s/p resection, COPD, CAD s/p stent presented to the ER with acute GIB # S/p colonoscopy: patient developed shortness of breath s/p Iv albuterol which improved , follow cxr in am #s/p UGIB : on Protonix drip continue as per GI, continue to HOLD ELIQUIS for now, s/p transfusions, stable at this time s/p FFp, Prbc,GI , s/p platelet transfusion i n ED. Colonoscopy and further procedure as per GI once patient is stable , clear liquid diet for now. #ARF prerenal due to Acute GIB # Acute on CHronic diastolic CHF, lasix in b/t transfusion , cardio dr escudero # Hx of afib: dc Eliquis since having acute GIB , hold bp meds for now, since hypotensive # hx of Colon ca s/p resection # hypothyroid- continue levothyroxine # CAD s/p stent- not on any antiplatelet due to GI bleeding. # hx of 7th rib fracture # hx of UTI Klebsiella Pneumoniae GI px: protonix drip DVT px: Scds Clear liquids pulmonary and caRDIO CONSULT CC [id number]
--- NOTE | 2019-03-15 20:20 | PN ---
Physical Exam: SUBJECTIVE: Patient seen and examined. During EGD patient became hypoxic which required ambubagging and epinephrine. Patient sent to the ICU for closer monitoring. Currently denies any complaints. Says she feels ok. OBJECTIVE: Vital Signs Period Temp Pulse Resp BP Sys/Tenorio Pulse Ox Last 24 Hr 97.9 F-98.2 F 70-110 17-22 74-120/45-85 90-99 GENERAL: The patient is awake, alert, and fully oriented, in no acute distress. HEAD: Normal with no signs of trauma. EYES: PERRL ENT: oropharynx clear without exudates, dry mucous membranes. NECK: supple. LUNGS: Breath sounds equal, clear to auscultation bilaterally, no wheezes, no crackles, no accessory muscle use. HEART: irregular, +murmur ABDOMEN: Soft, nontender, nondistended, normoactive bowel sounds EXTREMITIES: 2+ pulses, warm, well-perfused, no edema. Laboratory Results - last 24 hr 03/12/19 03/15/19 03/15/19 14:30 07:10 07:10 WBC 4.3 RBC 2.96 L Hgb 8.6 L Hct 26.2 L MCV 88.6 MCH 28.9 MCHC 32.7 RDW 18.1 H Plt Count 104 L MPV 8.5 Absolute Neuts (auto) 2.9 Neutrophils % 68.2 Lymphocytes % 10.8 Monocytes % 14.5 H Eosinophils % 5.3 H Basophils % 1.2 Nucleated RBC % 0 Sodium 141 Potassium 3.5 Chloride 108 H Carbon Dioxide 27 Anion Gap 6 L BUN 42.0 H Creatinine 1.4 H Est GFR (CKD-EPI)AfAm 39.61 Est GFR (CKD-EPI)NonAf 34.18 Random Glucose 87 Calcium 8.1 L Phosphorus 3.2 Magnesium 1.8 Total Bilirubin 1.4 H AST 5 L ALT 6 L Alkaline Phosphatase 42 L Total Protein 5.6 L Albumin 2.8 L Blood Type B POSITIVE Antibody Screen Negative Crossmatch See Detail Active Medications Generic Name Dose Route Start Last Admin Trade Name Freq PRN Reason Stop Dose Admin Carvedilol 12.5 mg 03/14/19 22:00 03/15/19 09:03 Coreg - PO Not Given BID [facility] Dextrose/Sodium Chloride 1,000 mls @ 42 mls/hr 03/14/19 19:45 03/14/19 20:52 D5-1/2ns - IV 42 mls/hr ASDIR LUKE Administration Isosorbide Mononitrate 30 mg 03/15/19 10:00 03/15/19 09:12 Imdur - PO 30 mg DAILY [facility] Administration Latanoprost 1 drop 03/14/19 22:00 03/14/19 23:15 Xalatan 0.005% Eye Drops - OU Not Given HS [facility] Levothyroxine Sodium 50 mcg 03/15/19 10:00 Synthroid Injection - IVPUSH DAILY [facility] Midodrine 10 mg 03/14/19 18:00 03/15/19 09:12 Proamatine - PO 10 mg TID-MID [facility] Administration Pantoprazole Sodium 40 mg 03/15/19 22:00 Protonix - PO BID [facility] Polyethylene Glycol 17 gm 03/14/19 22:00 03/15/19 09:05 Miralax (For Daily Use) - PO Not Given BID [facility] ASSESSMENT/PLAN: #Acute Hypoxic Respiratory Failure #GI Bleed #Acute Blood Loss Anemia #Acute Kidney Injury #Thrombocytopenia #h/o Colon Ca #A-Fib #Acute on Chronic Diastolic Heart Failure #Volume Overload #COPD #Hypothyroidism #HTN -duonebs -FU am CXR -protonix ggt -monitor H/H -AC held -FU GI reccs -transfuse as needed -holding anticoagulation -midodrine -clear liquids Visit type - Emergency Visit Emergency Visit: Yes ED Registration Date: 03/12/19 Care time: The patient presented to the Emergency Department on the above date and was hospitalized for further evaluation of their emergent condition. - New Patient This patient is new to me today: Yes Date on this admission: 03/18/19 - Critical Care Critical Care patient: Yes Total Critical Care Time (in minutes): 40 Critical Care Statement: The care of this patient involved high complexity decision making to prevent further life threatening deterioration of the patient 's condition and/or to evaluate & treat vital organ system(s) failure or risk of failure. ATTENDING PHYSICIAN STATEMENT I saw and evaluated the patient. I reviewed the resident's note and discussed the case with the resident. I agree with the resident's findings and plan as documented. SUBJECTIVE: OBJECTIVE: ASSESSMENT AND PLAN:
[2019-03-15] MEDS ORDERED: PT OWN MED DRAWER 7, Y5N ONE (21:32)
[2019-03-15] MEDS: PANTOPRAZOLE 40 MG TABLET (FP) PO SCH (23:41)
[2019-03-15] MEDS: LATANOPROST 0.005% OPHTH SOLN 2.5ML BOTTLE OU SCH (23:50)
[2019-03-15] MEDS: DEXTROSE 5%-0.45% SALINE 1,000 ML IV SCH (23:50)
[2019-03-16 07:06] LABS: BASO % 1.3 % (0-2.0); EOS % 4.1 % (0-4.5); HEMATOCRIT 26.4 % (32.4-45.2); HEMOGLOBIN 8.7 GM/dL (10.7-15.3); LYMPH % 7.7 % (8-40); MCH 29.3 pg (25.7-33.7); MCHC 32.8 g/dl (32.0-36.0); MEAN CELL VOLUME 89.4 fl (80-96); MEAN PLT VOLUME 8.6 fl (7.5-11.1); MONO % 14.3 % (3.8-10.2); NEUT % 72.6 % (42.8-82.8); PLATELET COUNT 87 K/MM3 (134-434); RBC 2.96 M/mm3 (3.60-5.2); RDW 18.6 % (11.6-15.6); WHITE BLOOD COUNT 4.2 K/mm3 (4.0-10.0)
[2019-03-16] MEDS: ALBUTEROL SO4 2.5/IPRATROPIUM 0.5 INH SOL 3 ML VIAL.NEB. NEB SCH ×4 (07:50→20:36)
[2019-03-16 07:51] LABS: CALCIUM 8.8 mg/dL (8.5-10.1); CREATININE 1.5 mg/dL (0.55-1.3); MAGNESIUM 1.5 mg/dL (1.8-2.4); PHOSPHOROUS 3.3 mg/dL (2.5-4.9); POTASSIUM 3.6 mmol/L (3.5-5.1)
--- NOTE | 2019-03-16 07:52 | PN ---
Physical Exam: SUBJECTIVE: Patient seen and examined by the bedside. She has been passing gas but has not had a BM yet. OBJECTIVE: Vital Signs Period Temp Pulse Resp BP Sys/Tenorio Pulse Ox Last 24 Hr 97.9 F-98.8 F 70-110 17-24 95-120/60-85 90-99 GENERAL: The patient is awake, alert, and fully oriented, in no acute distress. HEAD: Normal with no signs of trauma. EYES: PERRL ENT: oropharynx clear without exudates, dry mucous membranes. NECK: supple. LUNGS: Breath sounds equal, clear to auscultation bilaterally, no wheezes, no crackles, no accessory muscle use. HEART: irregular, +murmur ABDOMEN: Soft, nontender, nondistended, normoactive bowel sounds EXTREMITIES: 2+ pulses, warm, well-perfused, no edema. CBC, BMP 03/16/19 05:20 03/16/19 05:20 Current Medications Albuterol/Ipratropium (Duoneb -) 1 amp NEB RQID [facility] Last Admin: 03/16/19 11:40 Dose: 1 amp Carvedilol (Coreg -) 12.5 mg PO BID [facility] Last Admin: 03/16/19 10:03 Dose: Not Given Dextrose/Sodium Chloride (D5-1/2ns -) 1,000 mls @ 42 mls/hr IV ASDIR [facility] Last Admin: 03/15/19 23:50 Dose: Not Given Isosorbide Mononitrate (Imdur -) 30 mg PO DAILY [facility] Last Admin: 03/16/19 10:02 Dose: 30 mg Latanoprost (Xalatan 0.005% Eye Drops -) 1 drop OU HS [facility] Last Admin: 03/15/19 23:50 Dose: Not Given Levothyroxine Sodium (Synthroid Injection -) 50 mcg IVPUSH DAILY [facility] Last Admin: 03/16/19 11:15 Dose: 50 mcg Midodrine (Proamatine -) 10 mg PO TID-MID [facility] Last Admin: 03/16/19 14:16 Dose: 10 mg Pantoprazole Sodium (Protonix -) 40 mg PO BID [facility] Last Admin: 03/16/19 10:03 Dose: 40 mg Polyethylene Glycol (Miralax (For Daily Use) -) 17 gm PO BID [facility] Last Admin: 03/16/19 10:03 Dose: Not Given ASSESSMENT/PLAN: 83F with PMH HTN, HLD, CHF, CAD, NSTEMI s/p stent placement, A-fib (on eliquis) COPD, malignant colon polyp removed (no chemo/radiation), presenting to the ED with 1 week of dizziness and weakness with dark stools. s/p EGD 03/15 during which she became hypoxemic and hypotensive, was moved to the ICU for monitoring. #Neuro - AOx3 #Respiratory - Hypoxic during EGD on 03/15, improved with epi and ambu-bagging - CXR: left side pleural effusion, pigtail pleural catheter placed, labs pending - Lasix 40mg BID started - Duonebs #Cardio - EKG HR 84, QTc 418, non-specific T wave abnormalities in anterior leads, changed from inverted waves on previous EKG this admission - Hx of HTN: Hold Carvedilol, due to hypotension - Hypotension: On Midodrine - Hx of HFpEF, continuie Imdur - Cardio recs: #GI - GI recs: Bleeding site resolving duodenitis/small healed ulcer. Hypoxemic and hypotensive during procedure, prompt ambubagging, IV fluid epinephrine and a respiratory treatment. Transferred back to the ICU to manage her cardiac and respiratory issues. Will advance diet and switch to po PPI. #Renal - BU/Cr 36.0/1.5 #Endo - Hx of hypothyroidism: continue Levothyroxine #Heme/Onc - H&H 8.7/26.4 today #FEN - D5 1/2 NS @42 - Na controlled diet #Dispo - Will monitor overnight, potential transfer tomorrow Visit type - Emergency Visit Emergency Visit: Yes ED Registration Date: 03/12/19 Care time: The patient presented to the Emergency Department on the above date and was hospitalized for further evaluation of their emergent condition. - New Patient This patient is new to me today: Yes Date on this admission: 03/31/19 - Critical Care Critical Care patient: Yes Total Critical Care Time (in minutes): 38 Critical Care Statement: The care of this patient involved high complexity decision making to prevent further life threatening deterioration of the patient 's condition and/or to evaluate & treat vital organ system(s) failure or risk of failure. ATTENDING PHYSICIAN STATEMENT I saw and evaluated the patient. I reviewed the resident's note and discussed the case with the resident. I agree with the resident's findings and plan as documented. SUBJECTIVE: OBJECTIVE: ASSESSMENT AND PLAN:
[2019-03-16] MEDS ORDERED: MAGNESIUM SULF 50% (8.12 MEQ/2 ML-1 GM VIAL) IVPB ONE (09:04)
[2019-03-16] MEDS: LEVOTHYROXINE SODIUM 100 MCG VIAL IVPUSH SCH ×2 (09:04→11:15)
[2019-03-16] MEDS: MIDODRINE HCL 5 MG TABLET PO SCH ×4 (09:04→17:41)
[2019-03-16] MEDS: ISOSORBIDE MONONITRATE 30 MG TAB.SR.24H (FP) PO SCH (10:02)
[2019-03-16] MEDS: CARVEDILOL 12.5 MG TABLET (FP) PO SCH ×2 (10:03→22:20)
[2019-03-16] MEDS: PANTOPRAZOLE 40 MG TABLET (FP) PO SCH ×2 (10:03→22:20)
[2019-03-16] MEDS: POLYETHYLENE GLYCOL 3350 119 GM BTL PO SCH ×2 (10:03→23:00)
--- NOTE | 2019-03-16 10:32 | EKG ---
Test Reason : Blood Pressure : / mmHG Vent. Rate : 084 BPM Atrial Rate : 077 BPM P-R Int : 000 ms QRS Dur : 086 ms QT Int : 354 ms P-R-T Axes : 000 104 208 degrees QTc Int : 418 ms ATRIAL FIBRILLATION WITH PREMATURE VENTRICULAR OR ABERRANTLY CONDUCTED COMPLEXES RIGHTWARD AXIS NONSPECIFIC ST AND T WAVE ABNORMALITY ABNORMAL ECG WHEN COMPARED WITH ECG OF 12-MAR-2019 14:02, NONSPECIFIC T WAVE ABNORMALITY HAS REPLACED INVERTED T WAVES IN ANTERIOR LEADS Confirmed by Krish Burch MD ([id number]) on 03/16/2019 10:31:25 AM Referred By: KRISHAN GENTILE Confirmed By:Krish Burch MD
[2019-03-16] MEDS ORDERED: LIDOCAINE HCL 1%, 10 MG/ML (20ML VIAL) ONE (10:49)
[2019-03-16] MEDS ORDERED: PT OWN MED DRAWER 7, Y5N ONE (10:49)
[2019-03-16] MEDS ORDERED: LIDOCAINE HCL 2% (20ML MULTI-DOSE VIAL) INF ONE (10:58)
--- NOTE | 2019-03-16 11:11 | PN ---
Teaching Attending Note Name of Resident: Kenney Zepeda ATTENDING PHYSICIAN STATEMENT I saw and evaluated the patient. I reviewed the resident's note and discussed the case with the resident. I agree with the resident's findings and plan as documented. SUBJECTIVE: Pt seen and examined in the ICU. Still some shortness of breath. Did not get lasix due to hypotension. OBJECTIVE: Vital Signs Period Temp Pulse Resp BP Sys/Tenorio Pulse Ox Last 24 Hr 97.9 F-98.8 F 66-110 17-24 84-120/57-85 90-99 Intake & Output 03/13/19 03/14/19 03/15/19 03/16/19 23:59 23:59 23:59 23:59 Intake Total 2110 1330 1920 Output Total 1201 1640 Balance 909 -310 1920 Weight 56.501 kg 56.245 kg 63.276 kg Gen: mildly tachypneic at rest Heart: RRR Lung: decreased breath sounds at the bases Abd: softly distended, nontender Ext: no edema CBC, BMP 03/16/19 05:20 03/16/19 05:20 Active Medications Albuterol/Ipratropium (Duoneb -) 1 amp NEB RQID [facility] Last Admin: 03/16/19 07:50 Dose: 1 amp Carvedilol (Coreg -) 12.5 mg PO BID [facility] Last Admin: 03/16/19 10:03 Dose: Not Given Furosemide (Lasix Injection -) 40 mg IVPUSH BID@0600,1400 [facility] Dextrose/Sodium Chloride (D5-1/2ns -) 1,000 mls @ 42 mls/hr IV ASDIR [facility] Last Admin: 03/15/19 23:50 Dose: Not Given Isosorbide Mononitrate (Imdur -) 30 mg PO DAILY [facility] Last Admin: 03/16/19 10:02 Dose: 30 mg Latanoprost (Xalatan 0.005% Eye Drops -) 1 drop OU HS [facility] Last Admin: 03/15/19 23:50 Dose: Not Given Levothyroxine Sodium (Synthroid Injection -) 50 mcg IVPUSH DAILY [facility] Last Admin: 03/16/19 09:04 Dose: Not Given Lidocaine HCl (Xylocaine 2%) 10 mg INF ONCE ONE Stop: 03/16/19 10:59 Midodrine (Proamatine -) 10 mg PO TID-MID [facility] Last Admin: 03/16/19 10:02 Dose: 10 mg Pantoprazole Sodium (Protonix -) 40 mg PO BID [facility] Last Admin: 03/16/19 10:03 Dose: 40 mg Polyethylene Glycol (Miralax (For Daily Use) -) 17 gm PO BID [facility] Last Admin: 03/16/19 10:03 Dose: Not Given ASSESSMENT AND PLAN: Acute Hypoxic Respiratory Failure Acute on Chronic Diastolic Heart Failure Volume Overload GI Bleed Acute Blood Loss Anemia Acute Kidney Injury Anemia/Thrombocytopenia h/o Colon Ca Atrial Fibrillation on anticoagulation COPD Hypothyroidism HTN - lasix if BP can tolerate - will place pigtail pleural catheter - monitor urine output, creatinine - monitor H/H - transfuse as needed - protonix - holding anticoagulation - CT A/P with contrast when renal function improved - PO per GI - DVT prophylaxis - continue ICU monitoring critical care time spent in reviewing chart, evalutating patient and formulating plan 35 min
--- NOTE | 2019-03-16 11:25 | PN ---
Progress Note (short form) - Note Progress Note: Anesthesia Post Op Note Pt seen s/p GA for EGD Pt without complaints tolerating po no urinary retention, VSS no apparent anesthesia complications Amber Gunderson.
--- NOTE | 2019-03-16 11:48 | PN ---
Progress Note, Physician History of Present Illness: Patient is an 83 y/o Female with a PMhx of atrial fibrillation (on Eliquis), HTN, COPD, NSTEMI s/p stent placement, CAD, HFpEF (EF55% 11/2017), and colon cancer who presented to ED.for having generalized weakness x 1 week. Patient stated that she noticed dark, tarry stools. Patient lives by herself and is very active. while in Ed. was found to have low blood pressure and positive for tarry stool, with shortness of breath. - Current Medication List Current Medications: Active Medications Albuterol/Ipratropium (Duoneb -) 1 amp NEB RQID [facility] Last Admin: 03/16/19 07:50 Dose: 1 amp Carvedilol (Coreg -) 12.5 mg PO BID [facility] Last Admin: 03/16/19 10:03 Dose: Not Given Furosemide (Lasix Injection -) 40 mg IVPUSH BID@0600,1400 [facility] Dextrose/Sodium Chloride (D5-1/2ns -) 1,000 mls @ 42 mls/hr IV ASDIR [facility] Last Admin: 03/15/19 23:50 Dose: Not Given Isosorbide Mononitrate (Imdur -) 30 mg PO DAILY [facility] Last Admin: 03/16/19 10:02 Dose: 30 mg Latanoprost (Xalatan 0.005% Eye Drops -) 1 drop OU HS [facility] Last Admin: 03/15/19 23:50 Dose: Not Given Levothyroxine Sodium (Synthroid Injection -) 50 mcg IVPUSH DAILY [facility] Last Admin: 03/16/19 11:15 Dose: 50 mcg Midodrine (Proamatine -) 10 mg PO TID-MID [facility] Last Admin: 03/16/19 10:02 Dose: 10 mg Pantoprazole Sodium (Protonix -) 40 mg PO BID [facility] Last Admin: 03/16/19 10:03 Dose: 40 mg Polyethylene Glycol (Miralax (For Daily Use) -) 17 gm PO BID [facility] Last Admin: 03/16/19 10:03 Dose: Not Given - Objective Vital Signs: Vital Signs Temperature 98.4 F 03/16/19 10:00 Pulse Rate 66 03/16/19 10:00 Respiratory Rate 18 03/16/19 10:00 Blood Pressure 84/57 L 03/16/19 10:00 O2 Sat by Pulse Oximetry (%) 95 03/15/19 21:00 Eyes: Yes: WNL, Conjunctiva Clear, EOM Intact HENT: Yes: WNL, Atraumatic, Normocephalic Neck: Yes: WNL, Supple, Trachea Midline Cardiovascular: Yes: WNL, Regular Rate and Rhythm Respiratory: Yes: WNL, Regular, CTA Bilaterally Gastrointestinal: Yes: WNL, Normal Bowel Sounds Genitourinary: Yes: WNL Musculoskeletal: Yes: WNL Extremities: Yes: WNL Edema: No Integumentary: Yes: WNL Neurological: Yes: WNL, Alert, Oriented ...Motor Strength: WNL Psychiatric: Yes: WNL Labs: CBC, BMP 03/16/19 05:20 03/16/19 05:20 INR, PTT INR 2.17 (0.83-1.09) H 03/13/19 06:30 Problem List - Problems (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 - CONGENITAL MALFORMATION OF AORTA UNSPECIFIED (2) Colon adenoma Code(s): D12.6 - BENIGN NEOPLASM OF COLON, UNSPECIFIED (3) GI bleed Code(s): K92.2 - GASTROINTESTINAL HEMORRHAGE, UNSPECIFIED (4) Gallstones Code(s): K80.20 - CALCULUS OF GALLBLADDER W/O CHOLECYSTITIS W/O OBSTRUCTION (5) Gastrointestinal hemorrhage with melena Code(s): K92.1 - MELENA (6) Hiatal hernia Code(s): K44.9 - DIAPHRAGMATIC HERNIA WITHOUT OBSTRUCTION OR GANGRENE (7) Hypothyroid Code(s): E03.9 - HYPOTHYROIDISM, UNSPECIFIED (8) AMANDA (acute kidney injury) Code(s): N17.9 - ACUTE KIDNEY FAILURE, UNSPECIFIED (9) ASHD (arteriosclerotic heart disease) Code(s): I25.10 - ATHSCL HEART DISEASE OF [place] CORONARY ARTERY W/O ANG PCTRS (10) Acute on chronic systolic (congestive) heart failure Code(s): I50.23 - ACUTE ON CHRONIC SYSTOLIC (CONGESTIVE) HEART FAILURE (11) Acute on chronic systolic and diastolic heart failure, NYHA class 3 Code(s): I50.43 - ACUTE ON CHRONIC COMBINED SYSTOLIC AND DIASTOLIC HRT FAIL (12) Ankle pain, left Code(s): M25.572 - PAIN IN LEFT ANKLE AND JOINTS OF LEFT FOOT (13) Anxiety Code(s): F41.9 - ANXIETY DISORDER, UNSPECIFIED (14) Breast pain in female Code(s): N64.4 - MASTODYNIA (15) CHF (congestive heart failure) Code(s): I50.9 - HEART FAILURE, UNSPECIFIED Qualifiers: Heart failure type: unspecified Heart failure chronicity: chronic Qualified Code(s): I50.9 - Heart failure, unspecified (16) COPD (chronic obstructive pulmonary disease) Code(s): J44.9 - CHRONIC OBSTRUCTIVE PULMONARY DISEASE, UNSPECIFIED (17) COPD exacerbation Code(s): J44.1 - CHRONIC OBSTRUCTIVE PULMONARY DISEASE W (ACUTE) EXACERBATION (18) COPD mixed type Code(s): J44.9 - CHRONIC OBSTRUCTIVE PULMONARY DISEASE, UNSPECIFIED (19) Chest pain Code(s): R07.9 - CHEST PAIN, UNSPECIFIED Qualifiers: Chest pain type: unspecified Qualified Code(s): R07.9 - Chest pain, unspecified (20) Colon cancer Code(s): C18.9 - MALIGNANT NEOPLASM OF COLON, UNSPECIFIED (21) Community acquired pneumonia Code(s): J18.9 - PNEUMONIA, UNSPECIFIED ORGANISM (22) Contusion of rib on right side Code(s): S20.211A - CONTUSION OF RIGHT FRONT WALL OF THORAX, INITIAL ENCOUNTER (23) DVT prophylaxis Code(s): [id number] - (24) Diverticulosis Code(s): K57.90 - DVRTCLOS OF INTEST, PART UNSP, W/O PERF OR ABSCESS W/O BLEED (25) Elevated glucose Code(s): R73.09 - OTHER ABNORMAL GLUCOSE (26) Elevated lactic acid level Code(s): E87.2 - ACIDOSIS (27) Elevated troponin Code(s): R79.89 - OTHER SPECIFIED ABNORMAL FINDINGS OF BLOOD CHEMISTRY (28) Elevated troponin I level Code(s): R79.89 - OTHER SPECIFIED ABNORMAL FINDINGS OF BLOOD CHEMISTRY (29) [place] cardiac risk >20% in next 10 years Code(s): Z91.89 - OTH PERSONAL RISK FACTORS, NOT ELSEWHERE CLASSIFIED (30) Hyponatremia Code(s): E87.1 - HYPO-OSMOLALITY AND HYPONATREMIA (31) Hypotension Code(s): I95.9 - HYPOTENSION, UNSPECIFIED Qualifiers: Hypotension type: unspecified hypotension type Qualified Code(s): I95.9 - Hypotension, unspecified (32) Hypoxia Code(s): R09.02 - HYPOXEMIA (33) Lactic acid acidosis Code(s): E87.2 - ACIDOSIS (34) Microcytic hypochromic anemia Code(s): D50.9 - IRON DEFICIENCY ANEMIA, UNSPECIFIED (35) Moderate to severe pulmonary hypertension Code(s): I27.2 - OTHER SECONDARY PULMONARY HYPERTENSION * DO NOT USE * (36) Pericardial effusion Code(s): I31.3 - PERICARDIAL EFFUSION (NONINFLAMMATORY) (37) Periorbital hematoma of left eye Code(s): H05.232 - HEMORRHAGE OF LEFT ORBIT (38) Peripheral edema Code(s): R60.9 - EDEMA, UNSPECIFIED (39) Plantar fasciitis Code(s): M72.2 - PLANTAR FASCIAL FIBROMATOSIS (40) Pleural effusion Code(s): J90 - PLEURAL EFFUSION, NOT ELSEWHERE CLASSIFIED (41) Pneumonia Code(s): J18.9 - PNEUMONIA, UNSPECIFIED ORGANISM (42) Renal dysfunction Code(s): N28.9 - DISORDER OF KIDNEY AND URETER, UNSPECIFIED (43) Respiratory distress Code(s): R06.00 - DYSPNEA, UNSPECIFIED (44) Respiratory failure Code(s): J96.90 - RESPIRATORY FAILURE, UNSP, UNSP W HYPOXIA OR HYPERCAPNIA (45) Sepsis Code(s): A41.9 - SEPSIS, UNSPECIFIED ORGANISM (46) Sepsis due to pneumonia Code(s): J18.9 - PNEUMONIA, UNSPECIFIED ORGANISM; A41.9 - SEPSIS, UNSPECIFIED ORGANISM (47) Severe mitral regurgitation Code(s): I34.0 - NONRHEUMATIC MITRAL (VALVE) INSUFFICIENCY (48) Anemia Code(s): D64.9 - ANEMIA, UNSPECIFIED Qualifiers: Anemia type: unspecified type Qualified Code(s): D64.9 - Anemia, unspecified (49) Atrial fibrillation Code(s): I48.91 - UNSPECIFIED ATRIAL FIBRILLATION Qualifiers: Atrial fibrillation type: unspecified Qualified Code(s): I48.91 - Unspecified atrial fibrillation (50) Hypertension Code(s): I10 - ESSENTIAL (PRIMARY) HYPERTENSION (51) NSTEMI (non-ST elevated myocardial infarction) Code(s): I21.4 - NON-ST ELEVATION (NSTEMI) MYOCARDIAL INFARCTION Assessment/Plan atrial fibrillation (on Eliquis), HTN, COPD, NSTEMI s/p stent placement, CAD, HFpEF (EF55% 11/2017), and colon cancer admitted with GI bleed, developed hypotension requiring pressors during endoscopy. Plan atrial fibrillation (on Eliquis), HTN, COPD, NSTEMI s/p stent placement, CAD, HFpEF (EF55% 11/2017), and colon cancer admitted with GI bleed, developed hypotension requiring pressors during endoscopy. Plan; Monitor in ICU pressors as needed ekg GI f/u monitor HCT CC time spent 35 min
[2019-03-16] MEDS: FUROSEMIDE 40 MG/4 ML INJECTABLE VIAL IVPUSH SCH ×2 (12:00→14:17)
--- NOTE | 2019-03-16 13:21 | PN ---
Physical Exam: SUBJECTIVE: Patient seen and examined. She reports epigastric pain following drinking cold water but is currently not in pain. She denies chest pain, abdominal pain, nausea, vomiting, or diarrhea. OBJECTIVE: Vital Signs Period Temp Pulse Resp BP Sys/[place] Pulse Ox Last 24 Hr 98 F-98.8 F 66-106 17-24 76-117/57-85 90-97 GENERAL: The patient is awake, alert, and fully oriented, in no acute distress. HEAD: Normal with no signs of trauma. EYES: PERRL, extraocular movements intact, conjunctiva clear. ENT: Ears normal, nares patent, moist mucous membranes. NECK: Trachea midline, full range of motion LUNGS: Clear to auscultation bilaterally, no wheezes HEART: Regular rate and irregular rhythm, no murmur ABDOMEN: Soft, nontender, nondistended, normoactive bowel sounds, no guarding EXTREMITIES: 2+ pulses, warm, well-perfused, no edema. No calf pain. NEUROLOGICAL: Cranial nerves II through XII grossly intact. Normal speech. PSYCH: Normal mood, normal affect. SKIN: Warm, dry, normal turgor, no rashes or lesions noted Laboratory Results - last 24 hr 03/12/19 03/16/19 03/16/19 14:30 05:20 05:20 WBC 4.2 RBC 2.96 L Hgb 8.7 L Hct 26.4 L MCV 89.4 MCH 29.3 MCHC 32.8 RDW 18.6 H Plt Count 87 L MPV 8.6 Absolute Neuts (auto) 3.1 Neutrophils % 72.6 Lymphocytes % 7.7 L D Monocytes % 14.3 H Eosinophils % 4.1 Basophils % 1.3 Nucleated RBC % 0 Sodium 140 Potassium 3.6 Chloride 107 Carbon Dioxide 26 Anion Gap 7 L BUN 36.0 H Creatinine 1.5 H Est GFR (CKD-EPI)AfAm 36.44 Est GFR (CKD-EPI)NonAf 31.44 Random Glucose 87 Calcium 8.8 Phosphorus 3.3 Magnesium 1.5 L Blood Type B POSITIVE Antibody Screen Negative Crossmatch See Detail Active Medications Generic Name Dose Route Start Last Admin Trade Name Freq PRN Reason Stop Dose Admin Albuterol/Ipratropium 1 amp 03/16/19 08:00 03/16/19 11:40 Duoneb - NEB 1 amp RQID [facility] Administration Carvedilol 12.5 mg 03/14/19 22:00 03/16/19 10:03 Coreg - PO Not Given BID [facility] Furosemide 40 mg 03/16/19 10:26 03/16/19 12:00 Lasix Injection - IVPUSH Not Given BID@0600,1400 [facility] Dextrose/Sodium Chloride 1,000 mls @ 42 mls/hr 03/14/19 19:45 03/15/19 23:50 D5-1/2ns - IV Not Given ASDIR [facility] Isosorbide Mononitrate 30 mg 03/15/19 10:00 03/16/19 10:02 Imdur - PO 30 mg DAILY [facility] Administration Latanoprost 1 drop 03/14/19 22:00 03/15/19 23:50 Xalatan 0.005% Eye Drops - OU Not Given [facility] Levothyroxine Sodium 50 mcg 03/15/19 10:00 03/16/19 11:15 Synthroid Injection - IVPUSH 50 mcg DAILY [facility] Administration Midodrine 10 mg 03/14/19 18:00 03/16/19 10:02 Proamatine - PO 10 mg TID-MID [facility] Administration Pantoprazole Sodium 40 mg 03/15/19 22:00 03/16/19 10:03 Protonix - PO 40 mg BID [facility] Administration Polyethylene Glycol 17 gm 03/14/19 22:00 03/16/19 10:03 Miralax (For Daily Use) - PO Not Given BID [facility] ASSESSMENT/PLAN: Ms. Leiva is an 83y/o female with afib (on Eliquis), HTN, COPD, NSTEMI s/p stent, CAD, HFpEF (EF55% 11/2017), and colon cancer who presents with weakness x 1 week. Pt was found to be hypotensive and anemic (5.5). #acute hypoxic respiratory failure Pt became hypotensive and hypoxic during EGD but improved with epi and ambu- bagging yesterday. Pt is currently in ICU for monitoring. Intermittent hypotension. CXR showed left side pleural effusion. EKG HR 84, QTc 418, non- specific T wave abnormalities in anterior leads, changed from inverted waves on previous EKG this admission. -pigtail pleural catheter to be placed -midodrine -duo-neb -Lasix as tolerated -cards following #normocytic anemia 2/2 resolving duodenitis and possible small ulcer, s/p transfusion Hb 8.7 today. -monitor labs -PO protonix 40mg BID #glaucoma -latanoprost #HTN -monitor pressure -cavedilol 12.5mg BID as tolerated #hypothyroidism -Synthroid #HFpEF -imdur FEN D5 1/2 NS 42mL/hr monitor labs sodium controlled diet dispo monitor in ICU Visit type - Emergency Visit Emergency Visit: Yes ED Registration Date: 03/12/19 Care time: The patient presented to the Emergency Department on the above date and was hospitalized for further evaluation of their emergent condition. - New Patient This patient is new to me today: No - Critical Care Critical Care patient: Yes Total Critical Care Time (in minutes): 35 Critical Care Statement: The care of this patient involved high complexity decision making to prevent further life threatening deterioration of the patient 's condition and/or to evaluate & treat vital organ system(s) failure or risk of failure. - Discharge Referral Referred to [facility] No ATTENDING PHYSICIAN STATEMENT I saw and evaluated the patient. I reviewed the resident's note and discussed the case with the resident. I agree with the resident's findings and plan as documented. SUBJECTIVE: OBJECTIVE: ASSESSMENT AND PLAN:
--- NOTE | 2019-03-16 13:53 | PROC ---
<Ned Heaton - Last Filed: 03/16/19 13:53> Chest Tube Insertion Consent on Chart: Yes Risks and Benefits Explained: Yes Chest tube #1 Indication: Pleural Effusion Chest Tube Location: Left Lateral Anesthesia: 2% Lidocaine Size (Fr.): 10 Sterile Technique: Yes Tube Sutured to Skin: Yes Vaseline gauze dressing: No Chest Tube Collection System: Pleur-Evac Suction: Yes Drainage, Color/Appearance: Straw <Cassius Ruvalcaba MD - Last Filed: 03/17/19 11:05> Procedure Note Procedure: I supervised and was present during the entire procedure. Cassius Ruvalcaba MD
[2019-03-16 14:59] LABS: BF WBC & OTHER NUCLEATED CELLS 280 /mm3
[2019-03-16 15:29] LABS: BODY FLUID MACROPHAGES 32 %; BODY FLUID MONOCYTE 7 %; BODYL FLD EOSINOPHIL 2 %
--- NOTE | 2019-03-16 15:46 | ECHO ---
Version: 1 Name: JUANITA DIAZ Exam: Adult Echocardiogram Study Date: 03/16/2019, 2:10 PM Age: 83 Years MMode/2D Measurements & Calculations IVSd: 0.72 cm LVIDs: 2.5 cm LVIDd: 3.4 cm LVPWd: 2.5 cm LAV (MOD-bp): 57.4 ml LVOT diam: 1.51 cm Ao root diam: 2.03 cm Doppler Measurements & Calculations Lat Peak E' Cirilo: 7.4 cm/sec Med Peak E' Cirilo: 4.4 cm/sec MR max P.1 mmHg Ao max P.2 mmHg FANNIE(I,D): 0.90 cm Ao mean P.4 mmHg LV V1 mean: 59.3 cm/sec Ao V2 max: 158.8 cm/sec LV V1 mean P.64 mmHg PI end-d cirilo: 160.8 cm/sec TR max cirilo: 326.7 cm/sec TR max P.1 mmHg Procedure A complete two-dimensional transthoracic echocardiogram was performed (2D, M-mode, Doppler and color flow Doppler). Left Ventricle The left ventricle is normal in size. Ejection Fraction = 55%. Inferolateral wall akinesis. Overall preerved LV systolic function. Right Ventricle Flattened interventricular septum due to RV volume overload. There is normal right ventricular wall thickness. The right ventricular systolic function is moderately reduced. Atria The left atrium is moderately dilated. The right atrium is moderately dilated. Mitral Valve There is mild mitral annular calcification. There is moderate mitral regurgitation. Tricuspid Valve There is moderate to severe tricuspid regurgitation. Right ventricular systolic pressure is elevated at 53 mmhg. There is moderate pulmonary hypertension. Aortic Valve There is moderate aortic sclerosis.;. No hemodynamically significant valvular aortic stenosis. Pulmonic Valve The pulmonic valve is not well visualized. Great Vessels The aortic root is normal size. Pericardium/Pleura Moderate pericardial effusion (1-2 cm). There are no echocardiographic indications of cardiac tampon humza. Summary Statements Inferolateral wall akinesis. Overall preerved LV systolic function. The right ventricular systolic function is moderately reduced. There is moderate mitral regurgitation. There is moderate to severe tricuspid regurgitation. There is moderate pulmonary hypertension. Moderate pericardial effusion (1-2 cm) There are no echocardiographic indications of cardiac tamponade. Guillaume Segal 03/16/2019, 3:45 PM Ordering Physician: ZAK EVANS Referring Physician: ZAK EVANS Performed By: Aaliyah Juarez
--- NOTE | 2019-03-16 17:14 | PN ---
Teaching Attending Note Name of Resident: Bernice Garcia ATTENDING PHYSICIAN STATEMENT I saw and evaluated the patient. I reviewed the resident's note and discussed the case with the resident. I agree with the resident's findings and plan as documented. SUBJECTIVE:seen patient around 9am this morning. Patient is in ICU, getting pigtail done, otherwise no acute distress. Vital Signs Temperature 98.7 F 03/16/19 15:00 Pulse Rate 76 03/16/19 15:00 Respiratory Rate 18 03/16/19 15:00 Blood Pressure 92/68 03/16/19 15:00 O2 Sat by Pulse Oximetry (%) 95 03/16/19 09:00 GENERAL: The patient is awake, alert, and fully oriented, in mild distress. HEAD: Normal with no signs of trauma. EYES: PERRL, extraocular movements intact, sclera anicteric, conjunctiva clear. ENT: Ears normal, oropharynx clear without exudates, moist mucous membranes. NECK: Trachea midline, full range of motion, supple. LUNGS: decreased BS BL, decreased air entery bl , positive for rales , no wheezes, no crackles, no accessory muscle use. HEART: Irregularly-irregular , rate of 76 , S1, S2 positive, ALEJANDRO 3/6 lsb, NO rub or gallop. ABDOMEN: Soft, nt,nd, normoactive bowel sounds, no guarding, no rebound, no hepatosplenomegaly, no masses. EXTREMITIES: 2+ pulses, warm, well-perfused, no edema. NEUROLOGICAL: Cranial nerves II through XII grossly intact. Normal speech, gait not observed. PSYCH: Normal mood, normal affect. SKIN: Warm, dry, normal turgor, no rashes or lesions noted CBCD WBC 4.2 K/mm3 (4.0-10.0) 03/16/19 05:20 RBC 2.96 M/mm3 (3.60-5.2) L 03/16/19 05:20 Hgb 8.7 GM/dL (10.7-15.3) L 03/16/19 05:20 Hct 26.4 % (32.4-45.2) L 03/16/19 05:20 MCV 89.4 fl (80-96) 03/16/19 05:20 MCHC 32.8 g/dl (32.0-36.0) 03/16/19 05:20 RDW 18.6 % (11.6-15.6) H 03/16/19 05:20 Plt Count 87 K/MM3 (134-434) L 03/16/19 05:20 MPV 8.6 fl (7.5-11.1) 03/16/19 05:20 CMP Sodium 140 mmol/L (136-145) 03/16/19 05:20 Potassium 3.6 mmol/L (3.5-5.1) 03/16/19 05:20 Chloride 107 mmol/L (98-107) 03/16/19 05:20 Carbon Dioxide 26 mmol/L (21-32) 03/16/19 05:20 Anion Gap 7 MMOL/L (8-16) L 03/16/19 05:20 BUN 36.0 mg/dL (7-18) H 03/16/19 05:20 Creatinine 1.5 mg/dL (0.55-1.3) H 03/16/19 05:20 Random Glucose 87 mg/dL (74-106) 03/16/19 05:20 Calcium 8.8 mg/dL (8.5-10.1) 03/16/19 05:20 Total Bilirubin 1.4 mg/dL (0.2-1) H 03/15/19 07:10 AST 5 U/L (15-37) L 03/15/19 07:10 ALT 6 U/L (13-61) L 03/15/19 07:10 Alkaline Phosphatase 42 U/L (45-117) L 03/15/19 07:10 Total Protein 5.6 g/dl (6.4-8.2) L 03/15/19 07:10 Albumin 2.8 g/dl (3.4-5.0) L 03/15/19 07:10 CARDIAC ENZYMES Creatine Kinase 45 U/L (26-192) 03/12/19 14:30 Troponin I 0.02 ng/ml (0.00-0.05) 03/12/19 14:30 Current Medications Generic Name Dose Route Start Last Admin Trade Name Freq PRN Reason Stop Dose Admin Albuterol/Ipratropium 1 amp 03/16/19 08:00 03/16/19 16:13 Duoneb - NEB 1 amp RQID [facility] Administration Carvedilol 12.5 mg 03/14/19 22:00 03/16/19 10:03 Coreg - PO Not Given BID [facility] Dextrose/Sodium Chloride 1,000 mls @ 42 mls/hr 03/14/19 19:45 03/15/19 23:50 D5-1/2ns - IV Not Given [facility] Isosorbide Mononitrate 30 mg 03/15/19 10:00 03/16/19 10:02 Imdur - PO 30 mg DAILY [facility] Administration Latanoprost 1 drop 03/14/19 22:00 03/15/19 23:50 Xalatan 0.005% Eye Drops - OU Not Given [facility] Levothyroxine Sodium 50 mcg 03/15/19 10:00 03/16/19 11:15 Synthroid Injection - IVPUSH 50 mcg DAILY [facility] Administration Midodrine 10 mg 03/14/19 18:00 03/16/19 14:16 Proamatine - PO 10 mg TID-MID [facility] Administration Pantoprazole Sodium 40 mg 03/15/19 22:00 03/16/19 10:03 Protonix - PO 40 mg BID [facility] Administration Polyethylene Glycol 17 gm 03/14/19 22:00 03/16/19 10:03 Miralax (For Daily Use) - PO Not Given BID [facility] Home Medications Medication Instructions Recorded Atorvastatin Ca [Lipitor] 40 mg PO HS 10/19/17 Carvedilol [Coreg] 12.5 mg PO BID 10/19/17 Latanoprost 0.005% Eye Drops 1 drop OU HS 10/19/17 [Xalatan 0.005% Eye Drops -] Levothyroxine Sodium [Synthroid] 100 mcg PO DAILY 10/19/17 Isosorbide Mononitrate [Isosorbide 30 mg PO DAILY 11/25/17 Mononitrate ER] Apixaban [Eliquis -] 2.5 mg PO BID #60 tablet 12/04/17 Furosemide [Lasix -] 80 mg PO BID@0600,1400 03/12/19 Levothyroxine [Synthroid -] 88 mcg PO DAILY #30 tablet 03/12/19 Lisinopril 10 mg PO DAILY 03/12/19 CXR: extensive pulmonary pleural effusions with large heart and dense left base persists. ASSESSMENT AND PLAN: Patient is an 82yo Female with PMHx D.CHF, Afib on NOac , colon ca s/p resection, COPD, CAD s/p stent presented to the ER with acute GIB # B/L pleural effusions patient is having aq pigtail in place by ICU team, further management per icu, follow cx # S/p colonoscopy: patient developed shortness of breath s/p Iv albuterol which improved follow the pathology result #s/p UGIB : s/p Protonix drip , now on po protinix , continue to HOLD ELIQUIS for now, s/p transfusions, s/p FFp, Prbc,GI , s/p platelet transfusion. #ARF prerenal due to Acute GIB 36/1.5 today # Acute on CHronic diastolic CHF,s/p transfusions lasix in b/t transfusion , cardio dr escudero # Hx of afib: dc Eliquis since having acute GIB , hold bp meds for now, since hypotensive # hx of Colon ca s/p resection # hypothyroid- continue levothyroxine # CAD s/p stent- not on any antiplatelet due to GI bleeding. # hx of 7th rib fracture # hx of UTI Klebsiella Pneumoniae GI px: protonix DVT px: Scds pulmonary and caRDIO CONSULT
--- NOTE | 2019-03-16 20:59 | PN.GI ---
GI Progress Note Subjective: GI NOte: Breathing easier after chest tube. Discussed yesterday's events and EGD findings with Karli. She has no abdominal pain or bleeding - Objective Vital Signs: Vital Signs Temperature 98.7 F 03/16/19 15:00 Pulse Rate 90 03/16/19 17:00 Respiratory Rate 20 03/16/19 17:00 Blood Pressure 101/68 03/16/19 17:00 O2 Sat by Pulse Oximetry (%) 95 03/16/19 09:00 Laboratory Tests 03/14/19 03/15/19 03/15/19 06:49 07:10 07:10 Hgb 8.2 L 8.6 L BUN 42.0 H Creatinine 1.4 H 03/16/19 03/16/19 05:20 05:20 Hgb 8.7 L BUN 36.0 H Creatinine 1.5 H Constitutional: Calm ...Auscultate: Yes: Normoactive Bowel Sounds ...Palpate: Yes: Soft, Other (nontender) Labs: CBC, BMP 03/16/19 05:20 03/16/19 05:20 INR, PTT INR 2.17 (0.83-1.09) H 03/13/19 06:30 Assessment/Plan Assessment: - UGI bleed due to duodenitis resolved - Cardiorespiratory situation improving - Diverticulosis - History of ischemic colitis - Gallstone appears to be silent Plan: -- Continue PPI as po 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 - CONGENITAL MALFORMATION OF [place] UNSPECIFIED (7) ASHD (arteriosclerotic heart disease) Code(s): I25.10 - ATHSCL HEART DISEASE OF [place] CORONARY ARTERY W/O ANG PCTRS (8) COPD (chronic obstructive pulmonary disease) Code(s): J44.9 - CHRONIC OBSTRUCTIVE PULMONARY DISEASE, UNSPECIFIED (9) Colon cancer Code(s): C18.9 - MALIGNANT NEOPLASM OF COLON, UNSPECIFIED (10) Diverticulosis Code(s): K57.90 - DVRTCLOS OF INTEST, PART UNSP, W/O PERF OR ABSCESS W/O BLEED (11) Microcytic hypochromic anemia Code(s): D50.9 - IRON DEFICIENCY ANEMIA, UNSPECIFIED (12) Moderate to severe pulmonary hypertension Code(s): I27.2 - OTHER SECONDARY PULMONARY HYPERTENSION * DO NOT USE * (13) Peripheral edema Code(s): R60.9 - EDEMA, UNSPECIFIED (14) Renal dysfunction Code(s): N28.9 - DISORDER OF KIDNEY AND URETER, UNSPECIFIED (15) Severe mitral regurgitation Code(s): I34.0 - NONRHEUMATIC MITRAL (VALVE) INSUFFICIENCY (16) Atrial fibrillation Code(s): I48.91 - UNSPECIFIED ATRIAL FIBRILLATION Qualifiers: Atrial fibrillation type: unspecified Qualified Code(s): I48.91 - Unspecified atrial fibrillation (17) Hypertension Code(s): I10 - ESSENTIAL (PRIMARY) HYPERTENSION (18) NSTEMI (non-ST elevated myocardial infarction) Code(s): I21.4 - NON-ST ELEVATION (NSTEMI) MYOCARDIAL INFARCTION
[2019-03-16] MEDS: LATANOPROST 0.005% OPHTH SOLN 2.5ML BOTTLE OU SCH (22:20)
[2019-03-17] MEDS: DEXTROSE 5%-0.45% SALINE 1,000 ML IV SCH (02:40)
[2019-03-17 06:49] LABS: BASO % 0.7 % (0-2.0); EOS % 3.9 % (0-4.5); HEMATOCRIT 25.5 % (32.4-45.2); HEMOGLOBIN 8.3 GM/dL (10.7-15.3); LYMPH % 8.7 % (8-40); MCH 29.1 pg (25.7-33.7); MCHC 32.5 g/dl (32.0-36.0); MEAN CELL VOLUME 89.5 fl (80-96); MEAN PLT VOLUME 8.5 fl (7.5-11.1); MONO % 11.5 % (3.8-10.2); NEUT % 75.2 % (42.8-82.8); PLATELET COUNT 85 K/MM3 (134-434); RBC 2.85 M/mm3 (3.60-5.2); RDW 19.1 % (11.6-15.6); WHITE BLOOD COUNT 4.5 K/mm3 (4.0-10.0)
[2019-03-17 07:26] LABS: ALBUMIN 2.7 g/dl (3.4-5.0); BILIRUBIN,TOTAL 1.5 mg/dL (0.2-1); BLOOD UREA NITROGEN 28.3 mg/dL (7-18); CALCIUM 8.8 mg/dL (8.5-10.1); CREATININE 1.4 mg/dL (0.55-1.3); PHOSPHOROUS 2.4 mg/dL (2.5-4.9); POTASSIUM 3.6 mmol/L (3.5-5.1); TOT PROT 5.4 g/dl (6.4-8.2)
[2019-03-17] MEDS ORDERED: FUROSEMIDE 40 MG/4 ML INJECTABLE VIAL IVPUSH ONE (07:34)
[2019-03-17] MEDS: ALBUTEROL SO4 2.5/IPRATROPIUM 0.5 INH SOL 3 ML VIAL.NEB. NEB SCH ×4 (08:05→20:25)
[2019-03-17] MEDS ORDERED: CARVEDILOL 12.5 MG TABLET (FP) PO SCH (10:51)
[2019-03-17] MEDS: POLYETHYLENE GLYCOL 3350 119 GM BTL PO SCH ×3 (10:59→23:41)
[2019-03-17] MEDS: PANTOPRAZOLE 40 MG TABLET (FP) PO SCH ×2 (10:59→21:01)
[2019-03-17] MEDS: MIDODRINE HCL 5 MG TABLET PO SCH ×3 (10:59→18:25)
[2019-03-17] MEDS: ISOSORBIDE MONONITRATE 30 MG TAB.SR.24H (FP) PO SCH (10:59)
[2019-03-17] MEDS ORDERED: PT OWN MED DRAWER 7, Y5N ONE (11:08)
--- NOTE | 2019-03-17 11:08 | PN ---
Teaching Attending Note Name of Resident: Lilo Avelar ATTENDING PHYSICIAN STATEMENT I saw and evaluated the patient. I reviewed the resident's note and discussed the case with the resident. I agree with the resident's findings and plan as documented. SUBJECTIVE: Pt seen and examined in the ICU. Breathing better today. Saturating well on nasal cannula. About 1L drainage from the chest tube. OBJECTIVE: Vital Signs Period Temp Pulse Resp BP Sys/Tenorio Pulse Ox Last 24 Hr 97.9 F-98.7 F 68-90 18-29 68-149/49-72 99-99 Intake & Output 03/14/19 03/15/19 03/16/19 03/17/19 23:59 23:59 23:59 23:59 Intake Total 1330 1920 100 Output Total 1640 700 120 Balance -310 1920 -600 -120 Weight 56.245 kg 63.276 kg 62.124 kg Gen: less tachypneic Heart: RRR Lung: decreased breath sounds left base Abd: soft, nontender Ext: no edema CBC, BMP 03/17/19 06:10 03/17/19 06:10 Active Medications Albuterol/Ipratropium (Duoneb -) 1 amp NEB RQID [facility] Last Admin: 03/16/19 20:36 Dose: 1 amp Carvedilol (Coreg -) 6.25 mg PO BID [facility] Isosorbide Mononitrate (Imdur -) 30 mg PO DAILY [facility] Last Admin: 03/17/19 10:59 Dose: 30 mg Latanoprost (Xalatan 0.005% Eye Drops -) 1 drop OU HS [facility] Last Admin: 03/16/19 22:20 Dose: 1 drop Levothyroxine Sodium (Synthroid Injection -) 50 mcg IVPUSH DAILY [facility] Last Admin: 03/16/19 11:15 Dose: 50 mcg Midodrine (Proamatine -) 10 mg PO TID-MID [facility] Last Admin: 03/17/19 10:59 Dose: 10 mg Pantoprazole Sodium (Protonix -) 40 mg PO BID [facility] Last Admin: 03/17/19 10:59 Dose: 40 mg Polyethylene Glycol (Miralax (For Daily Use) -) 17 gm PO BID [facility] Last Admin: 03/17/19 10:59 Dose: Not Given ASSESSMENT AND PLAN: Acute Hypoxic Respiratory Failure Acute on Chronic Diastolic Heart Failure Volume Overload GI Bleed Acute Blood Loss Anemia Acute Kidney Injury Anemia/Thrombocytopenia h/o Colon Ca Atrial Fibrillation COPD Hypothyroidism HTN - IV lasix - will d/c chest tube - monitor urine output, creatinine - monitor H/H - transfuse as needed - protonix - holding anticoagulation - PO per GI - DVT prophylaxis - can monitor on telemetry
--- NOTE | 2019-03-17 11:12 | PN ---
Physical Exam: SUBJECTIVE: Patient seen and examined. States that her breathing feels better today compared to yesterday. Denies any SOB, chest pain, or abd pain. Chest tube placed yesterday. OBJECTIVE: Vital Signs Period Temp Pulse Resp BP Sys/Tenorio Pulse Ox Last 24 Hr 97.9 F-98.7 F 68-90 18-29 68-149/49-72 99-99 GENERAL: The patient is awake, alert, and fully oriented, in no acute distress. HEAD: Normal with no signs of trauma. EYES: PERRL, EOMI ENT: Moist mucous membranes NECK: supple, trachea midline LUNGS: scattered rhonchi, no accessory muscle use HEART: Regular rate and rhythm, S1, S2 without murmur, rub or gallop. ABDOMEN: Soft, nontender, nondistended, normoactive bowel sounds EXTREMITIES: 2+ pulses, warm, well-perfused, no edema. NEUROLOGICAL: Normal speech, gait not observed. SKIN: Warm, dry, chest tube in place on left side of chest. Laboratory Results - last 24 hr 03/16/19 03/16/19 03/16/19 12:38 12:38 12:38 WBC RBC Hgb Hct MCV MCH MCHC RDW Plt Count MPV Absolute Neuts (auto) Neutrophils % Lymphocytes % Monocytes % Eosinophils % Basophils % Nucleated RBC % Sodium Potassium Chloride Carbon Dioxide Anion Gap BUN Creatinine Est GFR (CKD-EPI)AfAm Est GFR (CKD-EPI)NonAf Random Glucose Calcium Phosphorus Magnesium Total Bilirubin AST ALT Alkaline Phosphatase Total Protein Albumin Fluid Source Pleural fluid Fluid WBC 280 Fluid RBC 810 Fluid Neutrophils 9 Fluid Lymphocytes 50 Fluid Glucose Fluid Cholesterol Cancelled Pleural Monocytes 7 Pleural Eosinophils 2 Pleural Macrophages 32 Synovial Source Cancelled Synovial WBC Cancelled Synovial RBC Cancelled Synovial Neutrophils Cancelled Synovial Lymphocytes Cancelled Synovial Monocytes Cancelled Synovial Histocytes Cancelled Synovial Plasma Cells Cancelled Synovial LE Cells Cancelled Synovial Macrophages Cancelled Synovial Other Cells Cancelled Synovial Diff Comment Cancelled 03/16/19 03/17/19 03/17/19 12:38 06:10 06:10 WBC 4.5 RBC 2.85 L Hgb 8.3 L Hct 25.5 L MCV 89.5 MCH 29.1 MCHC 32.5 RDW 19.1 H Plt Count 85 L MPV 8.5 Absolute Neuts (auto) 3.4 Neutrophils % 75.2 Lymphocytes % 8.7 Monocytes % 11.5 H Eosinophils % 3.9 Basophils % 0.7 Nucleated RBC % 0 Sodium 139 Potassium 3.6 Chloride 106 Carbon Dioxide 28 Anion Gap 4 L BUN 28.3 H Creatinine 1.4 H Est GFR (CKD-EPI)AfAm 39.61 Est GFR (CKD-EPI)NonAf 34.18 Random Glucose 86 Calcium 8.8 Phosphorus 2.4 L Magnesium 2.0 Total Bilirubin 1.5 H AST 9 L ALT 6 L Alkaline Phosphatase 48 Total Protein 5.4 L Albumin 2.7 L Fluid Source Fluid WBC Fluid RBC Fluid Neutrophils Fluid Lymphocytes Fluid Glucose Cancelled Fluid Cholesterol Pleural Monocytes Pleural Eosinophils Pleural Macrophages Synovial Source Synovial WBC Synovial RBC Synovial Neutrophils Synovial Lymphocytes Synovial Monocytes Synovial Histocytes Synovial Plasma Cells Synovial LE Cells Synovial Macrophages Synovial Other Cells Synovial Diff Comment Active Medications Generic Name Dose Route Start Last Admin Trade Name Freq PRN Reason Stop Dose Admin Albuterol/Ipratropium 1 amp 03/16/19 08:00 03/16/19 20:36 Duoneb - NEB 1 amp RQID [facility] Administration Carvedilol 6.25 mg 03/17/19 10:51 Coreg - PO BID [facility] Isosorbide Mononitrate 30 mg 03/15/19 10:00 03/17/19 10:59 Imdur - PO 30 mg DAILY [facility] Administration Latanoprost 1 drop 03/14/19 22:00 03/16/19 22:20 Xalatan 0.005% Eye Drops - OU 1 drop HS [facility] Administration Levothyroxine Sodium 50 mcg 03/15/19 10:00 03/16/19 11:15 Synthroid Injection - IVPUSH 50 mcg DAILY [facility] Administration Midodrine 10 mg 03/14/19 18:00 03/17/19 10:59 Proamatine - PO 10 mg TID-MID [facility] Administration Pantoprazole Sodium 40 mg 03/15/19 22:00 03/17/19 10:59 Protonix - PO 40 mg BID [facility] Administration Polyethylene Glycol 17 gm 03/14/19 22:00 03/17/19 10:59 Miralax (For Daily Use) - PO Not Given BID [facility] ASSESSMENT/PLAN: 83 y/o/m PMHx HTN, HLD, CHF, CAD, NSTEMI s/p stent placement, A-fib (on eliquis ) COPD, malignant colon polyp removed (no chemo/radiation), presenting to the ED with 1 week of dizziness and weakness with dark stools. s/p EGD 03/15 during which she became hypoxemic and hypotensive, was moved to the ICU for monitoring. #Neuro - AOx3 #Pulm - Hypoxic during EGD on 03/15, improved with epi and ambu-bagging. SpO2 >90% in ICU on Nasal Canula 4L - CXR: improved left sided aeration, worsening congestive changes on right side - Will remove chest tube today - Lasix 40mg given once today. Can consider second dose today if BP stable. - Duonebs RQID #Cardio - EKG HR 84, QTc 418, non-specific T wave abnormalities in anterior leads, changed from inverted waves on previous EKG this admission - Hx of HTN: Hold Carvedilol, due to hypotension - Hypotension: On Midodrine - Hx of HFpEF, continuie Imdur - Cardio on board #GI - GI recs: Bleeding site resolving duodenitis/small healed ulcer. Hypoxemic and hypotensive during procedure, prompt ambubagging, IV fluid epinephrine and a respiratory treatment. Transferred back to the ICU to manage her cardiac and respiratory issues. Will advance diet and switch to po PPI. #Renal - BUN/Cr 23.3/1.4 #Endo - Hx of hypothyroidism: continue Levothyroxine #Heme/Onc - H&H 8.3/25.5 #FEN - Hold fluids due to CHF - Na controlled diet #Dispo - Stable for transfer to med surg Visit type - Emergency Visit Emergency Visit: Yes ED Registration Date: 03/12/19 Care time: The patient presented to the Emergency Department on the above date and was hospitalized for further evaluation of their emergent condition. - New Patient This patient is new to me today: No - Critical Care Critical Care patient: Yes Total Critical Care Time (in minutes): 36 Critical Care Statement: The care of this patient involved high complexity decision making to prevent further life threatening deterioration of the patient 's condition and/or to evaluate & treat vital organ system(s) failure or risk of failure. ATTENDING PHYSICIAN STATEMENT I saw and evaluated the patient. I reviewed the resident's note and discussed the case with the resident. I agree with the resident's findings and plan as documented. SUBJECTIVE: OBJECTIVE: ASSESSMENT AND PLAN:
[2019-03-17] MEDS: LEVOTHYROXINE SODIUM 100 MCG VIAL IVPUSH SCH (11:15)
--- NOTE | 2019-03-17 11:25 | PN ---
Progress Note, Physician History of Present Illness: Patient is an 83 y/o Female with a PMhx of atrial fibrillation (on Eliquis), HTN, COPD, NSTEMI s/p stent placement, CAD, HFpEF (EF55% 11/2017), and colon cancer who presented to ED.for having generalized weakness x 1 week. Patient stated that she noticed dark, tarry stools. Patient lives by herself and is very active. while in Ed. was found to have low blood pressure and positive for tarry stool, with shortness of breath. - Current Medication List Current Medications: Active Medications Albuterol/Ipratropium (Duoneb -) 1 amp NEB RQID [facility] Last Admin: 03/17/19 08:05 Dose: 1 amp Carvedilol (Coreg -) 6.25 mg PO BID [facility] Isosorbide Mononitrate (Imdur -) 30 mg PO DAILY [facility] Last Admin: 03/17/19 10:59 Dose: 30 mg Latanoprost (Xalatan 0.005% Eye Drops -) 1 drop OU HS [facility] Last Admin: 03/16/19 22:20 Dose: 1 drop Levothyroxine Sodium (Synthroid Injection -) 50 mcg IVPUSH DAILY [facility] Last Admin: 03/17/19 11:15 Dose: 50 mcg Midodrine (Proamatine -) 10 mg PO TID-MID [facility] Last Admin: 03/17/19 10:59 Dose: 10 mg Pantoprazole Sodium (Protonix -) 40 mg PO BID [facility] Last Admin: 03/17/19 10:59 Dose: 40 mg Polyethylene Glycol (Miralax (For Daily Use) -) 17 gm PO BID [facility] Last Admin: 03/17/19 10:59 Dose: Not Given - Objective Vital Signs: Vital Signs Temperature 97.9 F 03/17/19 10:00 Pulse Rate 80 03/17/19 10:00 Respiratory Rate 19 03/17/19 10:00 Blood Pressure 68/49 L 03/17/19 10:00 O2 Sat by Pulse Oximetry (%) 99 03/17/19 09:14 Eyes: Yes: WNL, Conjunctiva Clear, EOM Intact HENT: Yes: WNL, Atraumatic, Normocephalic Neck: Yes: WNL, Supple, Trachea Midline Cardiovascular: Yes: WNL, Regular Rate and Rhythm Respiratory: Yes: WNL, Regular, CTA Bilaterally Gastrointestinal: Yes: WNL, Normal Bowel Sounds Genitourinary: Yes: WNL Musculoskeletal: Yes: WNL Extremities: Yes: WNL Edema: No Integumentary: Yes: WNL Neurological: Yes: WNL, Alert, Oriented ...Motor Strength: WNL Psychiatric: Yes: WNL Labs: CBC, BMP 03/17/19 06:10 03/17/19 06:10 INR, PTT INR 2.17 (0.83-1.09) H 03/13/19 06:30 Problem List - Problems (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 - CONGENITAL MALFORMATION OF AORTA UNSPECIFIED (2) Colon adenoma Code(s): D12.6 - BENIGN NEOPLASM OF COLON, UNSPECIFIED (3) GI bleed Code(s): K92.2 - GASTROINTESTINAL HEMORRHAGE, UNSPECIFIED (4) Gallstones Code(s): K80.20 - CALCULUS OF GALLBLADDER W/O CHOLECYSTITIS W/O OBSTRUCTION (5) Gastrointestinal hemorrhage with melena Code(s): K92.1 - MELENA (6) Hiatal hernia Code(s): K44.9 - DIAPHRAGMATIC HERNIA WITHOUT OBSTRUCTION OR GANGRENE (7) Hypothyroid Code(s): E03.9 - HYPOTHYROIDISM, UNSPECIFIED (8) AMANDA (acute kidney injury) Code(s): N17.9 - ACUTE KIDNEY FAILURE, UNSPECIFIED (9) ASHD (arteriosclerotic heart disease) Code(s): I25.10 - ATHSCL HEART DISEASE OF [place] CORONARY ARTERY W/O ANG PCTRS (10) Acute on chronic systolic (congestive) heart failure Code(s): I50.23 - ACUTE ON CHRONIC SYSTOLIC (CONGESTIVE) HEART FAILURE (11) Acute on chronic systolic and diastolic heart failure, NYHA class 3 Code(s): I50.43 - ACUTE ON CHRONIC COMBINED SYSTOLIC AND DIASTOLIC HRT FAIL (12) Ankle pain, left Code(s): M25.572 - PAIN IN LEFT ANKLE AND JOINTS OF LEFT FOOT (13) Anxiety Code(s): F41.9 - ANXIETY DISORDER, UNSPECIFIED (14) Breast pain in female Code(s): N64.4 - MASTODYNIA (15) CHF (congestive heart failure) Code(s): I50.9 - HEART FAILURE, UNSPECIFIED Qualifiers: Heart failure type: unspecified Heart failure chronicity: chronic Qualified Code(s): I50.9 - Heart failure, unspecified (16) COPD (chronic obstructive pulmonary disease) Code(s): J44.9 - CHRONIC OBSTRUCTIVE PULMONARY DISEASE, UNSPECIFIED (17) COPD exacerbation Code(s): J44.1 - CHRONIC OBSTRUCTIVE PULMONARY DISEASE W (ACUTE) EXACERBATION (18) COPD mixed type Code(s): J44.9 - CHRONIC OBSTRUCTIVE PULMONARY DISEASE, UNSPECIFIED (19) Chest pain Code(s): R07.9 - CHEST PAIN, UNSPECIFIED Qualifiers: Chest pain type: unspecified Qualified Code(s): R07.9 - Chest pain, unspecified (20) Colon cancer Code(s): C18.9 - MALIGNANT NEOPLASM OF COLON, UNSPECIFIED (21) Community acquired pneumonia Code(s): J18.9 - PNEUMONIA, UNSPECIFIED ORGANISM (22) Contusion of rib on right side Code(s): S20.211A - CONTUSION OF RIGHT FRONT WALL OF THORAX, INITIAL ENCOUNTER (23) DVT prophylaxis Code(s): [id number] - (24) Diverticulosis Code(s): K57.90 - DVRTCLOS OF INTEST, PART UNSP, W/O PERF OR ABSCESS W/O BLEED (25) Elevated glucose Code(s): R73.09 - OTHER ABNORMAL GLUCOSE (26) Elevated lactic acid level Code(s): E87.2 - ACIDOSIS (27) Elevated troponin Code(s): R79.89 - OTHER SPECIFIED ABNORMAL FINDINGS OF BLOOD CHEMISTRY (28) Elevated troponin I level Code(s): R79.89 - OTHER SPECIFIED ABNORMAL FINDINGS OF BLOOD CHEMISTRY (29) New Site cardiac risk >20% in next 10 years Code(s): Z91.89 - [facility]AL [facility] PERSONAL RISK FACTORS, NOT ELSEWHERE CLASSIFIED (30) Hyponatremia Code(s): E87.1 - HYPO-OSMOLALITY AND HYPONATREMIA (31) Hypotension Code(s): I95.9 - HYPOTENSION, UNSPECIFIED Qualifiers: Hypotension type: unspecified hypotension type Qualified Code(s): I95.9 - Hypotension, unspecified (32) Hypoxia Code(s): R09.02 - HYPOXEMIA (33) Lactic acid acidosis Code(s): E87.2 - ACIDOSIS (34) Microcytic hypochromic anemia Code(s): D50.9 - IRON DEFICIENCY ANEMIA, UNSPECIFIED (35) Moderate to severe pulmonary hypertension Code(s): I27.2 - OTHER SECONDARY PULMONARY HYPERTENSION * DO NOT USE * (36) Pericardial effusion Code(s): I31.3 - PERICARDIAL EFFUSION (NONINFLAMMATORY) (37) Periorbital hematoma of left eye Code(s): H05.232 - HEMORRHAGE OF LEFT ORBIT (38) Peripheral edema Code(s): R60.9 - EDEMA, UNSPECIFIED (39) Plantar fasciitis Code(s): M72.2 - PLANTAR FASCIAL FIBROMATOSIS (40) Pleural effusion Code(s): J90 - PLEURAL EFFUSION, NOT ELSEWHERE CLASSIFIED (41) Pneumonia Code(s): J18.9 - PNEUMONIA, UNSPECIFIED ORGANISM (42) Renal dysfunction Code(s): N28.9 - DISORDER OF KIDNEY AND URETER, UNSPECIFIED (43) Respiratory distress Code(s): R06.00 - DYSPNEA, UNSPECIFIED (44) Respiratory failure Code(s): J96.90 - RESPIRATORY FAILURE, UNSP, UNSP W HYPOXIA OR HYPERCAPNIA (45) Sepsis Code(s): A41.9 - SEPSIS, UNSPECIFIED ORGANISM (46) Sepsis due to pneumonia Code(s): J18.9 - PNEUMONIA, UNSPECIFIED ORGANISM; A41.9 - SEPSIS, UNSPECIFIED ORGANISM (47) Severe mitral regurgitation Code(s): I34.0 - NONRHEUMATIC MITRAL (VALVE) INSUFFICIENCY (48) Anemia Code(s): D64.9 - ANEMIA, UNSPECIFIED Qualifiers: Anemia type: unspecified type Qualified Code(s): D64.9 - Anemia, unspecified (49) Atrial fibrillation Code(s): I48.91 - UNSPECIFIED ATRIAL FIBRILLATION Qualifiers: Atrial fibrillation type: unspecified Qualified Code(s): I48.91 - Unspecified atrial fibrillation (50) Hypertension Code(s): I10 - ESSENTIAL (PRIMARY) HYPERTENSION (51) NSTEMI (non-ST elevated myocardial infarction) Code(s): I21.4 - NON-ST ELEVATION (NSTEMI) MYOCARDIAL INFARCTION Assessment/Plan atrial fibrillation (on Eliquis), HTN, COPD, NSTEMI s/p stent placement, CAD, HFpEF (EF55% 11/2017), and colon cancer admitted with GI bleed, developed hypotension requiring pressors during endoscopy. Plan atrial fibrillation (on Eliquis), HTN, COPD, NSTEMI s/p stent placement, CAD, HFpEF (EF55% 11/2017), and colon cancer admitted with GI bleed, developed hypotension requiring pressors during endoscopy. Plan; d/c ct GI f/u monitor HCT cardiac matias stable CC time spent 35 min
--- NOTE | 2019-03-17 11:44 | PN.GI ---
GI Progress Note Subjective: GI NOte: Breathing much more comfortably. Over a liter of fluid drained from the left chest. Remains hypotensive at 80/60 but is awake and alert and eating. - Objective Vital Signs: Vital Signs Temperature 97.9 F 03/17/19 10:00 Pulse Rate 80 03/17/19 10:00 Respiratory Rate 19 03/17/19 10:00 Blood Pressure 68/49 L 03/17/19 10:00 O2 Sat by Pulse Oximetry (%) 99 03/17/19 09:14 Laboratory Tests 03/16/19 03/17/19 05:20 06:10 Hgb 8.7 L 8.3 L Constitutional: Calm ...Auscultate: Yes: Normoactive Bowel Sounds ...Palpate: Yes: Soft, Other (nontender) Labs: CBC, BMP 03/17/19 06:10 03/17/19 06:10 INR, PTT INR 2.17 (0.83-1.09) H 03/13/19 06:30 Assessment/Plan Assessment: - UGI bleed due to duodenitis resolved - Hiatal hernia with hernia gastritis - History of malignancy colon polyp - Cardiorespiratory situation improving - Diverticulosis - History of ischemic colitis - Gallstone is silent Plan: -- Continue PPI as po -- Discussed the need for a surveillance colonoscopy given her h/o a malignant colon polyp Dr Minor will be covering over the Problem List - Problems (1) Gastroduodenitis with bleeding Code(s): K29.91 - GASTRODUODENITIS, UNSPECIFIED, WITH BLEEDING (2) Gastrointestinal hemorrhage with melena Code(s): K92.1 - MELENA (3) Colon adenoma Code(s): D12.6 - BENIGN NEOPLASM OF COLON, UNSPECIFIED (4) Hiatal hernia Code(s): K44.9 - DIAPHRAGMATIC HERNIA WITHOUT OBSTRUCTION OR GANGRENE (5) Hypothyroid Code(s): E03.9 - HYPOTHYROIDISM, UNSPECIFIED (6) Gallstones Code(s): K80.20 - CALCULUS OF GALLBLADDER W/O CHOLECYSTITIS W/O OBSTRUCTION (7) Aortic arch anomaly Code(s): Q25.40 - CONGENITAL MALFORMATION OF AORTA UNSPECIFIED (8) ASHD (arteriosclerotic heart disease) Code(s): I25.10 - ATHSCL HEART DISEASE OF [place] CORONARY ARTERY W/O ANG PCTRS (9) COPD (chronic obstructive pulmonary disease) Code(s): J44.9 - CHRONIC OBSTRUCTIVE PULMONARY DISEASE, UNSPECIFIED (10) Colon cancer Code(s): C18.9 - MALIGNANT NEOPLASM OF COLON, UNSPECIFIED (11) Diverticulosis Code(s): K57.90 - DVRTCLOS OF INTEST, PART UNSP, W/O PERF OR ABSCESS W/O BLEED (12) Microcytic hypochromic anemia Code(s): D50.9 - IRON DEFICIENCY ANEMIA, UNSPECIFIED (13) Moderate to severe pulmonary hypertension Code(s): I27.2 - OTHER SECONDARY PULMONARY HYPERTENSION * DO NOT USE * (14) Peripheral edema Code(s): R60.9 - EDEMA, UNSPECIFIED (15) Renal dysfunction Code(s): N28.9 - DISORDER OF KIDNEY AND URETER, UNSPECIFIED (16) Severe mitral regurgitation Code(s): I34.0 - NONRHEUMATIC MITRAL (VALVE) INSUFFICIENCY (17) Atrial fibrillation Code(s): I48.91 - UNSPECIFIED ATRIAL FIBRILLATION Qualifiers: Atrial fibrillation type: unspecified Qualified Code(s): I48.91 - Unspecified atrial fibrillation (18) Hypertension Code(s): I10 - ESSENTIAL (PRIMARY) HYPERTENSION (19) NSTEMI (non-ST elevated myocardial infarction) Code(s): I21.4 - NON-ST ELEVATION (NSTEMI) MYOCARDIAL INFARCTION
[2019-03-17] MEDS ORDERED: NAPH,MB-DB/K PH,MBDB POWDER PACKET PO ONE (14:27)
[2019-03-17 15:19] VITALS: BMI 24.0
--- NOTE | 2019-03-17 15:45 | PN ---
Teaching Attending Note Name of Resident: Lorelei Love ATTENDING PHYSICIAN STATEMENT I saw and evaluated the patient. I reviewed the resident's note and discussed the case with the resident. I agree with the resident's findings and plan as documented. SUBJECTIVE: No fever or chills. no dizziness or light headedness. no pain . feels a little better today OBJECTIVE: NAD, awake, pleasant , and cooperative CV; Irreg irreg . no MRG Lungs: decreased breath sounds on both sides. Abd:sfot, NT, Nd , N LBS Ext: no edema on legs Pitting edema on lower back A/P : 83 y/o lady with h/o COPD, CAD, s/p stents, CKD, diastolic CHF, hypothyroidism, UTI, &th rib Fx , Hiatal hernia, a fib , colon ca, s/p resection , ischemic colitis , who presented with upper GI bleed 1- Upper GI bleed from duodenitis 2- Acute on chronic diastolic heart failure exacerbation 3- Pleural effusions 4- s/p L chest tube 5- AMANDA on CKD 6- Hypotension 7-H/o A fib plan : - L CT removed - start lasix daily - hold Imdur due to hypotension and decrease coreg dose to give room for diuresis - monitor closely - cont midodrine - cont PPI - cont to hold Eliquis - Will d/w GI when it is safe to resume Eliquis - SBP in 70s . CArd recommended dc tele . will d/w ICU team. ? Safety on MEd surg
--- NOTE | 2019-03-17 16:16 | PN ---
Addendum entered and electronically signed by Bernice Garcia, RESIDENT 18:41: Will restart Prosper burgos for a-fib/DVT ppx Original Note: Physical Exam: SUBJECTIVE: Patient seen and examined. She denies chest pain, shortness of breath, cough, abdominal pain, n/v/d. OBJECTIVE: Vital Signs Period Temp Pulse Resp BP Sys/Tenorio Pulse Ox Last 24 Hr 97.6 F-98.0 F 72-90 19-29 68-149/49-72 99-99 GENERAL: The patient is awake, alert, and fully oriented, not in distress HEAD: Normal with no signs of trauma. EYES: PERRL, extraocular movements intact, conjunctiva clear. ENT: Ears normal, nares patent, moist mucous membranes. NECK: Trachea midline, full range of motion LUNGS: Mildly tachypneic, on 2L NC, decreased breath sounds bilaterally, left lower lobe gurgling, pigtail drain in place with straw-colored fluid 820cc HEART: Regular rate and irregular rhythm, no murmur ABDOMEN: Soft, nontender, nondistended, normoactive bowel sounds, no guarding EXTREMITIES: 2+ pulses, warm, well-perfused, no edema. No calf pain. NEUROLOGICAL: Cranial nerves II through XII grossly intact. Normal speech. PSYCH: Normal mood, normal affect. SKIN: Warm, dry, normal turgor, no rashes or lesions noted Laboratory Results - last 24 hr 03/16/19 03/16/19 03/17/19 12:38 12:38 06:10 WBC 4.5 RBC 2.85 L Hgb 8.3 L Hct 25.5 L MCV 89.5 MCH 29.1 MCHC 32.5 RDW 19.1 H Plt Count 85 L MPV 8.5 Absolute Neuts (auto) 3.4 Neutrophils % 75.2 Lymphocytes % 8.7 Monocytes % 11.5 H Eosinophils % 3.9 Basophils % 0.7 Nucleated RBC % 0 Sodium Potassium Chloride Carbon Dioxide Anion Gap BUN Creatinine Est GFR (CKD-EPI)AfAm Est GFR (CKD-EPI)NonAf Random Glucose Calcium Phosphorus Magnesium Total Bilirubin AST ALT Alkaline Phosphatase Total Protein Albumin Fluid Glucose 104 Fluid Total Protein 1.7 Body Fluid LDH Source 68 03/17/19 06:10 WBC RBC Hgb Hct MCV MCH MCHC RDW Plt Count MPV Absolute Neuts (auto) Neutrophils % Lymphocytes % Monocytes % Eosinophils % Basophils % Nucleated RBC % Sodium 139 Potassium 3.6 Chloride 106 Carbon Dioxide 28 Anion Gap 4 L BUN 28.3 H Creatinine 1.4 H Est GFR (CKD-EPI)AfAm 39.61 Est GFR (CKD-EPI)NonAf 34.18 Random Glucose 86 Calcium 8.8 Phosphorus 2.4 L Magnesium 2.0 Total Bilirubin 1.5 H AST 9 L ALT 6 L Alkaline Phosphatase 48 Total Protein 5.4 L Albumin 2.7 L Fluid Glucose Fluid Total Protein Body Fluid LDH Source Active Medications Generic Name Dose Route Start Last Admin Trade Name Freq PRN Reason Stop Dose Admin Albuterol/Ipratropium 1 amp 03/16/19 08:00 03/17/19 15:30 Duoneb - NEB 1 amp RQID LUKE Administration Carvedilol 6.25 mg 03/17/19 10:51 Coreg - PO BID LUKE Furosemide 40 mg 03/18/19 10:00 Lasix Injection - IVPUSH DAILY LUKE Latanoprost 1 drop 03/14/19 22:00 03/16/19 22:20 Xalatan 0.005% Eye Drops - OU 1 drop HS LUKE Administration Levothyroxine Sodium 50 mcg 03/15/19 10:00 03/17/19 11:15 Synthroid Injection - IVPUSH 50 mcg DAILY LUKE Administration Midodrine 10 mg 03/14/19 18:00 03/17/19 14:00 Proamatine - PO 10 mg TID-MID LUKE Administration Pantoprazole Sodium 40 mg 03/15/19 22:00 03/17/19 10:59 Protonix - PO 40 mg BID LUKE Administration Polyethylene Glycol 17 gm 03/14/19 22:00 03/17/19 10:59 Miralax (For Daily Use) - PO Not Given BID LUKE ASSESSMENT/PLAN: Ms. Leiva is an 83y/o female with afib (on Eliquis), HTN, COPD, NSTEMI s/p stent, CAD, HFpEF (EF55% 11/2017), and colon cancer who presents with weakness x 1 week. Pt was found to be hypotensive and anemic (5.5). Pt became hypotensive and hypoxic during EGD but improved with epi and ambu-bagging. Pt is currently in ICU for monitoring. Intermittent hypotension. #acute hypoxic respiratory failure 2/2 b/l pleural effusions CXR showed b/l pleural effusions. EKG HR 84, QTc 418, non-specific T wave abnormalities in anterior leads, changed from inverted waves on previous EKG this admission. -pigtail pleural catheter drained left lung, plan for right side today -midodrine -duo-neb -Lasix 40mg IV push -cards following #AMANDA vs CKD Cr is improving -monitor for changes given started Lasix #normocytic anemia 2/2 resolving duodenitis and possible small ulcer, s/p transfusion Hb 8.7 today. -monitor labs -PO protonix 40mg BID #hypomagnesemia, resolved #glaucoma -latanoprost #HTN -monitor pressure -cavedilol 12.5mg BID as tolerated #hypothyroidism -Synthroid #HFpEF -imdur FEN D5 1/2 NS 42mL/hr monitor labs sodium controlled diet dispo monitor in ICU Visit type - Emergency Visit Emergency Visit: Yes ED Registration Date: 03/12/19 Care time: The patient presented to the Emergency Department on the above date and was hospitalized for further evaluation of their emergent condition. - New Patient This patient is new to me today: No - Critical Care Critical Care patient: Yes Total Critical Care Time (in minutes): 35 Critical Care Statement: The care of this patient involved high complexity decision making to prevent further life threatening deterioration of the patient 's condition and/or to evaluate & treat vital organ system(s) failure or risk of failure. - Discharge Referral Referred to [facility] No ATTENDING PHYSICIAN STATEMENT I saw and evaluated the patient. I reviewed the resident's note and discussed the case with the resident. I agree with the resident's findings and plan as documented. SUBJECTIVE: OBJECTIVE: ASSESSMENT AND PLAN:
[2019-03-17] MEDS: APIXABAN 2.5 MG TABLET PO SCH (21:01)
[2019-03-17] MEDS: LATANOPROST 0.005% OPHTH SOLN 2.5ML BOTTLE OU SCH (21:01)
[2019-03-18] MEDS: CARVEDILOL 12.5 MG TABLET (FP) PO SCH (07:20)
[2019-03-18 08:04] LABS: HEMATOCRIT 25.6 % (32.4-45.2); HEMOGLOBIN 8.4 GM/dL (10.7-15.3); MCH 29.3 pg (25.7-33.7); MCHC 32.6 g/dl (32.0-36.0); MEAN CELL VOLUME 89.8 fl (80-96); PLATELET COUNT 89 K/MM3 (134-434); RBC 2.85 M/mm3 (3.60-5.2); WHITE BLOOD COUNT 4.5 K/mm3 (4.0-10.0)
[2019-03-18] MEDS: ALBUTEROL SO4 2.5/IPRATROPIUM 0.5 INH SOL 3 ML VIAL.NEB. NEB SCH ×4 (08:53→20:15)
[2019-03-18 08:55] LABS: ALBUMIN 2.6 g/dl (3.4-5.0); ALK PHOS 50 U/L (45-117); ANION GAP 8 MMOL/L (8-16); BILIRUBIN,TOTAL 1.3 mg/dL (0.2-1); BLOOD UREA NITROGEN 29.7 mg/dL (7-18); CALCIUM 8.2 mg/dL (8.5-10.1); CHLORIDE 104 mmol/L (98-107); CO2 27 mmol/L (21-32); CREATININE 1.4 mg/dL (0.55-1.3); GLUCOSE,RANDOM 80 mg/dL (74-106); MAGNESIUM 1.9 mg/dL (1.8-2.4); PHOSPHOROUS 3.4 mg/dL (2.5-4.9); POTASSIUM 3.9 mmol/L (3.5-5.1); SGOT/AST 7 U/L (15-37); SGPT/ALT < 6 U/L (13-61); SODIUM 139 mmol/L (136-145); TOT PROT 5.7 g/dl (6.4-8.2)
--- NOTE | 2019-03-18 09:18 | PN ---
Progress Note (short form) - Note Progress Note: PULMONARY SITTING UP IN BED EATING BREAKFAST OFFERS NO COMPLAINTS LEFT CHEST TUBE DRAINAGE REMAINS IN PLACE WITH SIGNIFICANT OUTPUT OVER 24 HRS VSS/AFEBRILE Gen: less tachypneic Heart: RRR Lung: decreased breath sounds left base/left pigtail in place Abd: soft, nontender Ext: no edema meds/notes/images reviewed ASSESSMENT AND PLAN: Acute Hypoxic Respiratory Failure Acute on Chronic Diastolic Heart Failure Volume Overload GI Bleed Acute Blood Loss Anemia Acute Kidney Injury Anemia/Thrombocytopenia h/o Colon Ca Atrial Fibrillation COPD Hypothyroidism HTN - IV lasix - continue chest tube drainage - monitor urine output, creatinine - monitor H/H - transfuse as needed - protonix - holding anticoagulation - PO per GI - DVT prophylaxis - check CXR today Dereck OWENS MD
[2019-03-18] MEDS: FUROSEMIDE 40 MG/4 ML INJECTABLE VIAL IVPUSH SCH (09:27)
[2019-03-18] MEDS: CARVEDILOL 6.25 MG TABLET (FP) PO SCH ×2 (09:27→21:08)
[2019-03-18] MEDS ORDERED: PT OWN MED DRAWER 7, Y5N ONE (09:41)
[2019-03-18] MEDS: POLYETHYLENE GLYCOL 3350 119 GM BTL PO SCH ×2 (09:43→21:08)
[2019-03-18] MEDS: LEVOTHYROXINE NA 88 MCG TABLET (FP) PO SCH (09:43)
[2019-03-18] MEDS: APIXABAN 2.5 MG TABLET PO SCH ×2 (09:43→21:08)
[2019-03-18] MEDS: MIDODRINE HCL 5 MG TABLET PO SCH ×3 (09:43→17:49)
[2019-03-18] MEDS: PANTOPRAZOLE 40 MG TABLET (FP) PO SCH ×2 (09:43→21:08)
[2019-03-18] MEDS ORDERED: FUROSEMIDE 40 MG/4 ML INJECTABLE VIAL IVPUSH SCH (10:00)
[2019-03-18] MEDS ORDERED: LEVOTHYROXINE SODIUM 100 MCG VIAL IVPUSH SCH (10:00)
--- NOTE | 2019-03-18 11:41 | PN ---
Teaching Attending Note Name of Resident: Bernice Garcia ATTENDING PHYSICIAN STATEMENT I saw and evaluated the patient. I reviewed the resident's note and discussed the case with the resident. I agree with the resident's findings and plan as documented. SUBJECTIVE: No fever or chills. No pain , no light headedness. no CP . minimal cough with sauer sputum OBJECTIVE: NAD, awake, pleasant , and cooperative CV; Irreg irreg . no MRG Lungs: decreased breath sounds on R , improvement in areation on L side. Abd: soft, NT, Nd , NL BS Ext: no edema on legs A/P: 83 y/o lady with h/o COPD, CAD, s/p stents, CKD, diastolic CHF, hypothyroidism, UTI, &th rib Fx , Hiatal hernia, a fib , colon ca, s/p resection , ischemic colitis , who presented with upper GI bleed. 1- Upper GI bleed from duodenitis 2- Acute on chronic diastolic heart failure exacerbation 3- Pleural effusions 4- s/p L chest tube 5- AMANDA on CKD 6- Hypotension 7-H/o A fib plan : - cont L chest - cont lasix daily - hold Imdur and continue decreased dose of coreg - monitor closely - cont midodrine - cont PPI - d.w dr. Tirado yesterday. OK to start eliquis from GI standpoint. resumed - cxray today - patint eneded up on Med-surg but she is stable. will cont to monitor
--- NOTE | 2019-03-18 15:18 | PN ---
Progress Note, Physician Chief Complaint: Cardiology for Dr. Moore History of Present Illness: No further GI bleed, hypotensive placed on midodrine. - Current Medication List Current Medications: Active Medications Albuterol/Ipratropium (Duoneb -) 1 amp NEB RQID [facility] Last Admin: 03/18/19 12:31 Dose: 1 amp Apixaban (Eliquis -) 2.5 mg PO BID [facility] Last Admin: 03/18/19 09:43 Dose: 2.5 mg Carvedilol (Coreg -) 6.25 mg PO BID [facility] Last Admin: 03/18/19 09:27 Dose: Not Given Furosemide (Lasix Injection -) 40 mg IVPUSH DAILY [facility] Last Admin: 03/18/19 09:27 Dose: Not Given Latanoprost (Xalatan 0.005% Eye Drops -) 1 drop OU HS [facility] Levothyroxine Sodium (Synthroid -) 88 mcg PO DAILY@0700 [facility] Last Admin: 03/18/19 09:43 Dose: 88 mcg Midodrine (Proamatine -) 10 mg PO TID-MID [facility] Last Admin: 03/18/19 14:34 Dose: 10 mg Pantoprazole Sodium (Protonix -) 40 mg PO BID [facility] Last Admin: 03/18/19 09:43 Dose: 40 mg Polyethylene Glycol (Miralax (For Daily Use) -) 17 gm PO BID [facility] Last Admin: 03/18/19 09:43 Dose: 17 grams - Objective Vital Signs: Vital Signs Temperature 97.7 F 03/18/19 10:00 Pulse Rate 91 H 03/18/19 10:00 Respiratory Rate 20 03/18/19 10:00 Blood Pressure 88/50 L 03/18/19 10:00 O2 Sat by Pulse Oximetry (%) 93 L 03/18/19 09:00 Constitutional: Yes: No Distress, Thin Neck: Yes: Supple Cardiovascular: Yes: Pulse Irregular Respiratory: Yes: Regular, Diminished, On Nasal O2 Gastrointestinal: Yes: Soft, Hypoactive Bowel Sounds Edema: No Labs: CBC, BMP 03/18/19 07:35 03/18/19 07:35 INR, PTT INR 2.17 (0.83-1.09) H 03/13/19 06:30 - ....Imaging Chest X-ray: Report Reviewed (Left pigtail, RLL ATX and effusion) Assessment/Plan Problem List - Problems (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 - CONGENITAL MALFORMATION OF AORTA UNSPECIFIED (2) Colon adenoma Code(s): D12.6 - BENIGN NEOPLASM OF COLON, UNSPECIFIED (3) GI bleed Code(s): K92.2 - GASTROINTESTINAL HEMORRHAGE, UNSPECIFIED (4) Gallstones Code(s): K80.20 - CALCULUS OF GALLBLADDER W/O CHOLECYSTITIS W/O OBSTRUCTION (5) Gastrointestinal hemorrhage with melena Code(s): K92.1 - MELENA (6) Hiatal hernia Code(s): K44.9 - DIAPHRAGMATIC HERNIA WITHOUT OBSTRUCTION OR GANGRENE (7) Hypothyroid Code(s): E03.9 - HYPOTHYROIDISM, UNSPECIFIED (8) AMANDA (acute kidney injury) Code(s): N17.9 - ACUTE KIDNEY FAILURE, UNSPECIFIED (9) ASHD (arteriosclerotic heart disease) Code(s): I25.10 - ATHSCL HEART DISEASE OF [place] CORONARY ARTERY W/O ANG PCTRS (10) Acute on chronic systolic (congestive) heart failure Code(s): I50.23 - ACUTE ON CHRONIC SYSTOLIC (CONGESTIVE) HEART FAILURE (11) Acute on chronic systolic and diastolic heart failure, NYHA class 3 Code(s): I50.43 - ACUTE ON CHRONIC COMBINED SYSTOLIC AND DIASTOLIC HRT FAIL (12) Ankle pain, left Code(s): M25.572 - PAIN IN LEFT ANKLE AND JOINTS OF LEFT FOOT (13) Anxiety Code(s): F41.9 - ANXIETY DISORDER, UNSPECIFIED (14) Breast pain in female Code(s): N64.4 - MASTODYNIA (15) CHF (congestive heart failure) Code(s): I50.9 - HEART FAILURE, UNSPECIFIED Qualifiers: Heart failure type: unspecified Heart failure chronicity: chronic Qualified Code(s): I50.9 - Heart failure, unspecified (16) COPD (chronic obstructive pulmonary disease) Code(s): J44.9 - CHRONIC OBSTRUCTIVE PULMONARY DISEASE, UNSPECIFIED (17) COPD exacerbation Code(s): J44.1 - CHRONIC OBSTRUCTIVE PULMONARY DISEASE W (ACUTE) EXACERBATION (18) COPD mixed type Code(s): J44.9 - CHRONIC OBSTRUCTIVE PULMONARY DISEASE, UNSPECIFIED (19) Chest pain Code(s): R07.9 - CHEST PAIN, UNSPECIFIED Qualifiers: Chest pain type: unspecified Qualified Code(s): R07.9 - Chest pain, unspecified (20) Colon cancer Code(s): C18.9 - MALIGNANT NEOPLASM OF COLON, UNSPECIFIED (21) Community acquired pneumonia Code(s): J18.9 - PNEUMONIA, UNSPECIFIED ORGANISM (22) Contusion of rib on right side Code(s): S20.211A - CONTUSION OF RIGHT FRONT WALL OF THORAX, INITIAL ENCOUNTER (23) DVT prophylaxis Code(s): SWG8860 - (24) Diverticulosis Code(s): K57.90 - DVRTCLOS OF INTEST, PART UNSP, W/O PERF OR ABSCESS W/O BLEED (25) Elevated glucose Code(s): R73.09 - OTHER ABNORMAL GLUCOSE (26) Elevated lactic acid level Code(s): E87.2 - ACIDOSIS (27) Elevated troponin Code(s): R79.89 - OTHER SPECIFIED ABNORMAL FINDINGS OF BLOOD CHEMISTRY (28) Elevated troponin I level Code(s): R79.89 - OTHER SPECIFIED ABNORMAL FINDINGS OF BLOOD CHEMISTRY (29) [place] cardiac risk >20% in next 10 years Code(s): Z91.89 - OT PERSONAL RISK FACTORS, NOT ELSEWHERE CLASSIFIED (30) Hyponatremia Code(s): E87.1 - HYPO-OSMOLALITY AND HYPONATREMIA (31) Hypotension Code(s): I95.9 - HYPOTENSION, UNSPECIFIED Qualifiers: Hypotension type: unspecified hypotension type Qualified Code(s): I95.9 - Hypotension, unspecified (32) Hypoxia Code(s): R09.02 - HYPOXEMIA (33) Lactic acid acidosis Code(s): E87.2 - ACIDOSIS (34) Microcytic hypochromic anemia Code(s): D50.9 - IRON DEFICIENCY ANEMIA, UNSPECIFIED (35) Moderate to severe pulmonary hypertension Code(s): I27.2 - OTHER SECONDARY PULMONARY HYPERTENSION * DO NOT USE * (36) Pericardial effusion Code(s): I31.3 - PERICARDIAL EFFUSION (NONINFLAMMATORY) (37) Periorbital hematoma of left eye Code(s): H05.232 - HEMORRHAGE OF LEFT ORBIT (38) Peripheral edema Code(s): R60.9 - EDEMA, UNSPECIFIED (39) Plantar fasciitis Code(s): M72.2 - PLANTAR FASCIAL FIBROMATOSIS (40) Pleural effusion Code(s): J90 - PLEURAL EFFUSION, NOT ELSEWHERE CLASSIFIED (41) Pneumonia Code(s): J18.9 - PNEUMONIA, UNSPECIFIED ORGANISM (42) Renal dysfunction Code(s): N28.9 - DISORDER OF KIDNEY AND URETER, UNSPECIFIED (43) Respiratory distress Code(s): R06.00 - DYSPNEA, UNSPECIFIED (44) Respiratory failure Code(s): J96.90 - RESPIRATORY FAILURE, UNSP, UNSP W HYPOXIA OR HYPERCAPNIA (45) Sepsis Code(s): A41.9 - SEPSIS, UNSPECIFIED ORGANISM (46) Sepsis due to pneumonia Code(s): J18.9 - PNEUMONIA, UNSPECIFIED ORGANISM; A41.9 - SEPSIS, UNSPECIFIED ORGANISM (47) Severe mitral regurgitation Code(s): I34.0 - NONRHEUMATIC MITRAL (VALVE) INSUFFICIENCY (48) Anemia Code(s): D64.9 - ANEMIA, UNSPECIFIED Qualifiers: Anemia type: unspecified type Qualified Code(s): D64.9 - Anemia, unspecified (49) Atrial fibrillation Code(s): I48.91 - UNSPECIFIED ATRIAL FIBRILLATION Qualifiers: Atrial fibrillation type: unspecified Qualified Code(s): I48.91 - Unspecified atrial fibrillation (50) Hypertension Code(s): I10 - ESSENTIAL (PRIMARY) HYPERTENSION (51) NSTEMI (non-ST elevated myocardial infarction) Code(s): I21.4 - NON-ST ELEVATION (NSTEMI) MYOCARDIAL INFARCTION Assessment/Plan 1. Acute Hypoxic Respiratory Failure 2. Acute on Chronic Diastolic Heart Failure (EF55% 11/2017) 3. Post endoscopy hypotension requiring pressors 4. GI Bleed with Acute Blood Loss Anemia and thrombocytopenia 5. Acute on chronic Kidney Injury at baseline 6. h/o Colon Ca 7. Atrial Fibrillation on eliquis 8. COPD 9. Hypothyroidism 10. HTN 11. CAD NSTEMI s/p stent placement 1. IV diuresis with monitor diuretic response, renal fxn and electrolytes 2. Continue Eliquis 2.5 bid, carvedilol 6.25 bid, midodrine 10 tid 3. Continue Lt chest tube drainage 4. Monitor H/H, transfuse as needed, protonix
--- NOTE | 2019-03-18 17:28 | PN ---
Physical Exam: SUBJECTIVE: Patient seen and examined. She reports breathing is about the same as yesterday. She has a mild cough that sometimes produces greyish sputum. She denies chest pain, abdominal pain, n/v/d. OBJECTIVE: Vital Signs Period Temp Pulse Resp BP Sys/Tenorio Pulse Ox Last 24 Hr 97.7 F-99.2 F 88-102 20-26 78-92/50-66 93-99 GENERAL: The patient is awake, alert, and fully oriented, not in distress HEAD: Normal with no signs of trauma. EYES: PERRL, extraocular movements intact, conjunctiva clear. ENT: Ears normal, nares patent, moist mucous membranes. NECK: Trachea midline, full range of motion LUNGS: Mildly tachypneic, on 2L NC, decreased breath sounds bilaterally, left lower lobe gurgling, pigtail drain in place with straw-colored fluid 820cc HEART: Regular rate and irregular rhythm, no murmur ABDOMEN: Soft, nontender, nondistended, normoactive bowel sounds, no guarding EXTREMITIES: 2+ pulses, warm, well-perfused, no edema. No calf pain. NEUROLOGICAL: Cranial nerves II through XII grossly intact. Normal speech. PSYCH: Normal mood, normal affect. SKIN: Warm, dry, normal turgor, no rashes or lesions noted Laboratory Results - last 24 hr 03/18/19 03/18/19 07:35 07:35 WBC 4.5 RBC 2.85 L Hgb 8.4 L Hct 25.6 L MCV 89.8 MCH 29.3 MCHC 32.6 RDW 19.0 H Plt Count 89 L MPV 9.0 Sodium 139 Potassium 3.9 Chloride 104 Carbon Dioxide 27 Anion Gap 8 BUN 29.7 H Creatinine 1.4 H Est GFR (CKD-EPI)AfAm 39.61 Est GFR (CKD-EPI)NonAf 34.18 Random Glucose 80 Calcium 8.2 L Phosphorus 3.4 Magnesium 1.9 Total Bilirubin 1.3 H AST 7 L ALT < 6 L Alkaline Phosphatase 50 Total Protein 5.7 L Albumin 2.6 L Active Medications Generic Name Dose Route Start Last Admin Trade Name Freq PRN Reason Stop Dose Admin Albuterol/Ipratropium 1 amp 03/18/19 08:00 03/18/19 17:00 Duoneb - NEB 1 amp RQID LUKE Administration Apixaban 2.5 mg 03/17/19 22:00 03/18/19 09:43 Eliquis - PO 2.5 mg BID LUKE Administration Carvedilol 6.25 mg 03/18/19 10:00 03/18/19 09:27 Coreg - PO Not Given BID LUKE Furosemide 40 mg 03/18/19 10:00 03/18/19 09:27 Lasix Injection - IVPUSH Not Given DAILY LUKE Latanoprost 1 drop 03/18/19 22:00 Xalatan 0.005% Eye Drops - OU HS LUKE Levothyroxine Sodium 88 mcg 03/18/19 07:58 03/18/19 09:43 Synthroid - PO 88 mcg DAILY@0700 LUKE Administration Midodrine 10 mg 03/18/19 10:00 03/18/19 14:34 Proamatine - PO 10 mg TID-MID LUKE Administration Pantoprazole Sodium 40 mg 03/18/19 10:00 03/18/19 09:43 Protonix - PO 40 mg BID LUKE Administration Polyethylene Glycol 17 gm 03/18/19 10:00 03/18/19 09:43 Miralax (For Daily Use) - PO 17 grams BID LUKE Administration ASSESSMENT/PLAN: Ms. Leiva is an 83y/o female with afib (on Eliquis), HTN, COPD, NSTEMI s/p stent, CAD, HFpEF (EF55% 11/2017), and colon cancer who presents with weakness x 1 week. Pt was found to be hypotensive and anemic (5.5). Pt became hypotensive and hypoxic during EGD but improved with epi and ambu-bagging. #acute hypoxic respiratory failure 2/2 b/l pleural effusions CXR showed possible left lung disease in airspace, right side effusion and lower lobe consolidation -left chest tube- continuing to drain -midodrine -duo-neb -Lasix 40mg IV daily -cards following -pulm following #AMANDA vs CKD Cr is stable -monitor for changes given started Lasix #normocytic anemia 2/2 resolving duodenitis and possible small ulcer, s/p transfusion Hb 8.7 today. -monitor labs -PO protonix 40mg BID #hypomagnesemia, resolved #glaucoma -latanoprost #HTN -monitor pressure -cavedilol 12.5mg BID as tolerated #hypothyroidism -Synthroid #HFpEF FEN no standing fluids monitor labs sodium controlled diet dispo med/surg Visit type - Emergency Visit Emergency Visit: Yes ED Registration Date: 03/12/19 Care time: The patient presented to the Emergency Department on the above date and was hospitalized for further evaluation of their emergent condition. - New Patient This patient is new to me today: No - Critical Care Critical Care patient: No - Discharge Referral Referred to [facility] No ATTENDING PHYSICIAN STATEMENT I saw and evaluated the patient. I reviewed the resident's note and discussed the case with the resident. I agree with the resident's findings and plan as documented. SUBJECTIVE: OBJECTIVE: ASSESSMENT AND PLAN:
[2019-03-18] MEDS: LATANOPROST 0.005% OPHTH SOLN 2.5ML BOTTLE OU SCH (22:31)
[2019-03-19] MEDS: LEVOTHYROXINE NA 88 MCG TABLET (FP) PO SCH (06:07)
[2019-03-19] MEDS: ALBUTEROL SO4 2.5/IPRATROPIUM 0.5 INH SOL 3 ML VIAL.NEB. NEB SCH ×4 (07:45→20:23)
[2019-03-19 09:00] LABS: ALBUMIN 2.7 g/dl (3.4-5.0); ALK PHOS 51 U/L (45-117); ANION GAP 6 MMOL/L (8-16); BILIRUBIN,TOTAL 1.6 mg/dL (0.2-1); BLOOD UREA NITROGEN 35.7 mg/dL (7-18); CALCIUM 8.3 mg/dL (8.5-10.1); CHLORIDE 102 mmol/L (98-107); CO2 27 mmol/L (21-32); CREATININE 1.6 mg/dL (0.55-1.3); GLUCOSE,RANDOM 82 mg/dL (74-106); POTASSIUM 4.1 mmol/L (3.5-5.1); SGOT/AST 8 U/L (15-37); SGPT/ALT < 6 U/L (13-61); SODIUM 134 mmol/L (136-145); TOT PROT 5.5 g/dl (6.4-8.2)
[2019-03-19] MEDS ORDERED: PT OWN MED DRAWER 7, Y5N ONE (09:43)
[2019-03-19] MEDS: APIXABAN 2.5 MG TABLET PO SCH ×2 (09:47→21:32)
[2019-03-19] MEDS: CARVEDILOL 6.25 MG TABLET (FP) PO SCH ×2 (09:47→21:31)
[2019-03-19] MEDS: POLYETHYLENE GLYCOL 3350 119 GM BTL PO SCH ×2 (09:47→21:32)
[2019-03-19] MEDS: MIDODRINE HCL 5 MG TABLET PO SCH ×3 (09:48→17:51)
[2019-03-19] MEDS: PANTOPRAZOLE 40 MG TABLET (FP) PO SCH ×2 (09:49→21:32)
[2019-03-19] MEDS: FUROSEMIDE 40 MG/4 ML INJECTABLE VIAL IVPUSH SCH (09:49)
--- NOTE | 2019-03-19 11:26 | PN ---
Progress Note (short form) - Note Progress Note: PULMONARY MILD DISCOMFORT LEFT CHEST TUBE, DRAINAGE WITH SIGNIFICANT OUTPUT OVER 24 HRS VSS/AFEBRILE Gen: less tachypneic Heart: RRR Lung: decreased breath sounds left base/left pigtail in place Abd: soft, nontender Ext: no edema meds/notes/images reviewed ASSESSMENT AND PLAN: Acute Hypoxic Respiratory Failure Acute on Chronic Diastolic Heart Failure Volume Overload GI Bleed Acute Blood Loss Anemia Acute Kidney Injury Anemia/Thrombocytopenia h/o Colon Ca Atrial Fibrillation COPD Hypothyroidism HTN - IV lasix - continue chest tube drainage - monitor urine output, creatinine - monitor H/H - transfuse as needed - protonix - holding anticoagulation - PO per GI - DVT prophylaxis - check CXR Dereck OWENS MD
--- NOTE | 2019-03-19 13:17 | PN ---
Progress Note, Physician Chief Complaint: Cardiology for Dr. Moore History of Present Illness: No further GI bleed, hypotensive placed on midodrine and fluorinef. - Current Medication List Current Medications: Active Medications Albuterol/Ipratropium (Duoneb -) 1 amp NEB RQID [facility] Last Admin: 03/19/19 07:45 Dose: 1 amp Apixaban (Eliquis -) 2.5 mg PO BID [facility] Last Admin: 03/19/19 09:47 Dose: 2.5 mg Carvedilol (Coreg -) 6.25 mg PO BID [facility] Last Admin: 03/19/19 09:47 Dose: 6.25 mg Fludrocortisone Acetate (Florinef -) 0.1 mg PO DAILY [facility] Furosemide (Lasix Injection -) 20 mg IVPUSH DAILY [facility] Latanoprost (Xalatan 0.005% Eye Drops -) 1 drop OU HS [facility] Last Admin: 03/18/19 22:31 Dose: 1 drop Levothyroxine Sodium (Synthroid -) 88 mcg PO DAILY@0700 [facility] Last Admin: 03/19/19 06:07 Dose: 88 mcg Midodrine (Proamatine -) 10 mg PO TID-MID [facility] Last Admin: 03/19/19 09:48 Dose: 10 mg Pantoprazole Sodium (Protonix -) 40 mg PO BID [facility] Last Admin: 03/19/19 09:49 Dose: 40 mg Polyethylene Glycol (Miralax (For Daily Use) -) 17 gm PO BID [facility] Last Admin: 03/19/19 09:47 Dose: 17 grams - Objective Vital Signs: Vital Signs Temperature 98.5 F 03/19/19 08:10 Pulse Rate 93 H 03/19/19 08:10 Respiratory Rate 20 03/19/19 08:10 Blood Pressure 101/64 03/19/19 08:10 O2 Sat by Pulse Oximetry (%) 95 03/18/19 21:00 Constitutional: Yes: No Distress, Calm, Thin Neck: Yes: Supple Cardiovascular: Yes: Pulse Irregular Respiratory: Yes: Regular, Diminished, On Nasal O2, Other (Left chest tube) Gastrointestinal: Yes: Normal Bowel Sounds, Soft Edema: No Labs: CBC, BMP 03/18/19 07:35 03/19/19 07:27 INR, PTT INR 2.17 (0.83-1.09) H 03/13/19 06:30 Assessment/Plan 03/16/2019 Echo: Inferolateral AK, normal LV fxn, mod decreased RV fxn, mod MR, mod-severe TR, mod pulm HTN, moderate 1-2 cm pericardial effusion Problem List - Problems (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 - CONGENITAL MALFORMATION OF [place] UNSPECIFIED (2) Colon adenoma Code(s): D12.6 - BENIGN NEOPLASM OF COLON, UNSPECIFIED (3) GI bleed Code(s): K92.2 - GASTROINTESTINAL HEMORRHAGE, UNSPECIFIED (4) Gallstones Code(s): K80.20 - CALCULUS OF GALLBLADDER W/O CHOLECYSTITIS W/O OBSTRUCTION (5) Gastrointestinal hemorrhage with melena Code(s): K92.1 - MELENA (6) Hiatal hernia Code(s): K44.9 - DIAPHRAGMATIC HERNIA WITHOUT OBSTRUCTION OR GANGRENE (7) Hypothyroid Code(s): E03.9 - HYPOTHYROIDISM, UNSPECIFIED (8) AMANDA (acute kidney injury) Code(s): N17.9 - ACUTE KIDNEY FAILURE, UNSPECIFIED (9) ASHD (arteriosclerotic heart disease) Code(s): I25.10 - ATHSCL HEART DISEASE OF [place] CORONARY ARTERY W/O ANG PCTRS (10) Acute on chronic systolic (congestive) heart failure Code(s): I50.23 - ACUTE ON CHRONIC SYSTOLIC (CONGESTIVE) HEART FAILURE (11) Acute on chronic systolic and diastolic heart failure, NYHA class 3 Code(s): I50.43 - ACUTE ON CHRONIC COMBINED SYSTOLIC AND DIASTOLIC HRT FAIL (12) Ankle pain, left Code(s): M25.572 - PAIN IN LEFT ANKLE AND JOINTS OF LEFT FOOT (13) Anxiety Code(s): F41.9 - ANXIETY DISORDER, UNSPECIFIED (14) Breast pain in female Code(s): N64.4 - MASTODYNIA (15) CHF (congestive heart failure) Code(s): I50.9 - HEART FAILURE, UNSPECIFIED Qualifiers: Heart failure type: unspecified Heart failure chronicity: chronic Qualified Code(s): I50.9 - Heart failure, unspecified (16) COPD (chronic obstructive pulmonary disease) Code(s): J44.9 - CHRONIC OBSTRUCTIVE PULMONARY DISEASE, UNSPECIFIED (17) COPD exacerbation Code(s): J44.1 - CHRONIC OBSTRUCTIVE PULMONARY DISEASE W (ACUTE) EXACERBATION (18) COPD mixed type Code(s): J44.9 - CHRONIC OBSTRUCTIVE PULMONARY DISEASE, UNSPECIFIED (19) Chest pain Code(s): R07.9 - CHEST PAIN, UNSPECIFIED Qualifiers: Chest pain type: unspecified Qualified Code(s): R07.9 - Chest pain, unspecified (20) Colon cancer Code(s): C18.9 - MALIGNANT NEOPLASM OF COLON, UNSPECIFIED (21) Community acquired pneumonia Code(s): J18.9 - PNEUMONIA, UNSPECIFIED ORGANISM (22) Contusion of rib on right side Code(s): S20.211A - CONTUSION OF RIGHT FRONT WALL OF THORAX, INITIAL ENCOUNTER (23) DVT prophylaxis Code(s): [id number] - (24) Diverticulosis Code(s): K57.90 - DVRTCLOS OF INTEST, PART UNSP, W/O PERF OR ABSCESS W/O BLEED (25) Elevated glucose Code(s): R73.09 - OTHER ABNORMAL GLUCOSE (26) Elevated lactic acid level Code(s): E87.2 - ACIDOSIS (27) Elevated troponin Code(s): R79.89 - OTHER SPECIFIED ABNORMAL FINDINGS OF BLOOD CHEMISTRY (28) Elevated troponin I level Code(s): R79.89 - OTHER SPECIFIED ABNORMAL FINDINGS OF BLOOD CHEMISTRY (29) [place] cardiac risk >20% in next 10 years Code(s): Z91.89 - [facility] PERSONAL RISK FACTORS, NOT ELSEWHERE CLASSIFIED (30) Hyponatremia Code(s): E87.1 - HYPO-OSMOLALITY AND HYPONATREMIA (31) Hypotension Code(s): I95.9 - HYPOTENSION, UNSPECIFIED Qualifiers: Hypotension type: unspecified hypotension type Qualified Code(s): I95.9 - Hypotension, unspecified (32) Hypoxia Code(s): R09.02 - HYPOXEMIA (33) Lactic acid acidosis Code(s): E87.2 - ACIDOSIS (34) Microcytic hypochromic anemia Code(s): D50.9 - IRON DEFICIENCY ANEMIA, UNSPECIFIED (35) Moderate to severe pulmonary hypertension Code(s): I27.2 - OTHER SECONDARY PULMONARY HYPERTENSION * DO NOT USE * (36) Pericardial effusion Code(s): I31.3 - PERICARDIAL EFFUSION (NONINFLAMMATORY) (37) Periorbital hematoma of left eye Code(s): H05.232 - HEMORRHAGE OF LEFT ORBIT (38) Peripheral edema Code(s): R60.9 - EDEMA, UNSPECIFIED (39) Plantar fasciitis Code(s): M72.2 - PLANTAR FASCIAL FIBROMATOSIS (40) Pleural effusion Code(s): J90 - PLEURAL EFFUSION, NOT ELSEWHERE CLASSIFIED (41) Pneumonia Code(s): J18.9 - PNEUMONIA, UNSPECIFIED ORGANISM (42) Renal dysfunction Code(s): N28.9 - DISORDER OF KIDNEY AND URETER, UNSPECIFIED (43) Respiratory distress Code(s): R06.00 - DYSPNEA, UNSPECIFIED (44) Respiratory failure Code(s): J96.90 - RESPIRATORY FAILURE, UNSP, UNSP W HYPOXIA OR HYPERCAPNIA (45) Sepsis Code(s): A41.9 - SEPSIS, UNSPECIFIED ORGANISM (46) Sepsis due to pneumonia Code(s): J18.9 - PNEUMONIA, UNSPECIFIED ORGANISM; A41.9 - SEPSIS, UNSPECIFIED ORGANISM (47) Severe mitral regurgitation Code(s): I34.0 - NONRHEUMATIC MITRAL (VALVE) INSUFFICIENCY (48) Anemia Code(s): D64.9 - ANEMIA, UNSPECIFIED Qualifiers: Anemia type: unspecified type Qualified Code(s): D64.9 - Anemia, unspecified (49) Atrial fibrillation Code(s): I48.91 - UNSPECIFIED ATRIAL FIBRILLATION Qualifiers: Atrial fibrillation type: unspecified Qualified Code(s): I48.91 - Unspecified atrial fibrillation (50) Hypertension Code(s): I10 - ESSENTIAL (PRIMARY) HYPERTENSION (51) NSTEMI (non-ST elevated myocardial infarction) Code(s): I21.4 - NON-ST ELEVATION (NSTEMI) MYOCARDIAL INFARCTION Assessment/Plan 1. Acute Hypoxic Respiratory Failure post left chest tube 2. Acute on Chronic Diastolic Heart Failure (EF55% 11/2017) 3. Post endoscopy hypotension requiring pressors 4. GI Bleed with Acute Blood Loss Anemia and thrombocytopenia 5. Acute on chronic Kidney Injury at baseline 6. h/o Colon Ca 7. Atrial Fibrillation on eliquis 8. COPD 9. Hypothyroidism 10. HTN 11. CAD NSTEMI s/p stent placement 1. IV diuresis with monitor diuretic response, renal fxn and electrolytes 2. Continue Eliquis 2.5 bid, carvedilol 6.25 bid, midodrine 10 tid, fluorinef 0.1 qd 3. Continue Lt chest tube drainage 4. Monitor H/H, transfuse as needed, protonix
[2019-03-19] MEDS: FLUDROCORTISONE ACETATE 0.1 MG TABLET (FP) PO SCH (14:20)
--- NOTE | 2019-03-19 15:51 | PN ---
Physical Exam: SUBJECTIVE: Patient seen and examined. She reports breathing is about the same as yesterday. She has a mild cough associated with breathing treatments that sometimes produces sputum. She denies chest pain, abdominal pain, n/v/d. She reports left back pain near chest tube which is not really changed over the last several days. OBJECTIVE: Vital Signs Period Temp Pulse Resp BP Sys/Tenorio Pulse Ox Last 24 Hr 97.7 F-98.5 F 70-95 20-20 62-101/43-66 95 GENERAL: The patient is awake, alert, and fully oriented, not in distress HEAD: Normal with no signs of trauma. EYES: PERRL, extraocular movements intact, conjunctiva clear. ENT: Ears normal, nares patent, moist mucous membranes. NECK: Trachea midline, full range of motion LUNGS: Mildly tachypneic, on 2L NC, decreased breath sounds at right base, left lung CTA, left drain in place with straw-colored fluid 525cc HEART: Regular rate and irregular rhythm, no murmur ABDOMEN: Soft, nontender, nondistended, normoactive bowel sounds, no guarding EXTREMITIES: Warm, well-perfused, no edema. No calf pain. NEUROLOGICAL: Cranial nerves II through XII grossly intact. Normal speech. PSYCH: Normal mood, normal affect. SKIN: Warm, dry, normal turgor, no rashes or lesions noted Laboratory Results - last 24 hr 03/19/19 07:27 Sodium 134 L Potassium 4.1 Chloride 102 Carbon Dioxide 27 Anion Gap 6 L BUN 35.7 H Creatinine 1.6 H Est GFR (CKD-EPI)AfAm 33.70 Est GFR (CKD-EPI)NonAf 29.08 Random Glucose 82 Calcium 8.3 L Total Bilirubin 1.6 H AST 8 L ALT < 6 L Alkaline Phosphatase 51 Total Protein 5.5 L Albumin 2.7 L Active Medications Generic Name Dose Route Start Last Admin Trade Name Freq PRN Reason Stop Dose Admin Albuterol/Ipratropium 1 amp 03/18/19 08:00 03/19/19 13:15 Duoneb - NEB 1 amp RQID [facility] Administration Apixaban 2.5 mg 03/17/19 22:00 03/19/19 09:47 Eliquis - PO 2.5 mg BID [facility] Administration Carvedilol 6.25 mg 03/18/19 10:00 03/19/19 09:47 Coreg - PO 6.25 mg BID [facility] Administration Fludrocortisone Acetate 0.1 mg 03/19/19 13:00 03/19/19 14:20 Florinef - PO 0.1 mg DAILY [facility] Administration Furosemide 20 mg 03/19/19 10:52 Lasix Injection - IVPUSH DAILY [facility] Latanoprost 1 drop 03/18/19 22:00 03/18/19 22:31 Xalatan 0.005% Eye Drops - OU 1 drop HS [facility] Administration Levothyroxine Sodium 88 mcg 03/18/19 07:58 03/19/19 06:07 Synthroid - PO 88 mcg DAILY@0700 [facility] Administration Midodrine 10 mg 03/18/19 10:00 03/19/19 14:20 Proamatine - PO 10 mg TID-MID [facility] Administration Pantoprazole Sodium 40 mg 03/18/19 10:00 03/19/19 09:49 Protonix - PO 40 mg BID [facility] Administration Polyethylene Glycol 17 gm 03/18/19 10:00 03/19/19 09:47 Miralax (For Daily Use) - PO 17 grams BID [facility] Administration ASSESSMENT/PLAN: Ms. Leiva is an 83y/o female with afib (on Eliquis), HTN, COPD, NSTEMI s/p stent, CAD, HFpEF (EF55% 11/2017), and colon cancer who presents with weakness x 1 week. Pt was found to be hypotensive and anemic (5.5). Pt became hypotensive and hypoxic during EGD but improved with epi and ambu-bagging. #acute hypoxic respiratory failure 2/2 b/l pleural effusions #HFpEF -left chest tube- continuing to drain -duo-neb -Lasix 20mg IV daily -cards following -pulm following #hypotension -midodrine 10mg TID -fludrocortisone 0.1mg daily -PT #afib -carvedilol 6.25mg BID -Eliquis #AMANDA vs CKD slight increase in Cr today -Lasix dose decreased to 20mg -monitor for changes given started Lasix #normocytic anemia 2/2 resolving duodenitis and possible small ulcer, s/p transfusion Hb 8.4 today. -monitor labs -PO protonix 40mg BID #glaucoma -latanoprost #HTN -monitor pressure -cavedilol 12.5mg BID as tolerated #hypothyroidism -Synthroid #hypomagnesemia, resolved DVT Ppx Eliquis FEN no standing fluids monitor labs sodium controlled diet dispo med/surg FULL CODE Visit type - Emergency Visit Emergency Visit: Yes ED Registration Date: 03/12/19 Care time: The patient presented to the Emergency Department on the above date and was hospitalized for further evaluation of their emergent condition. - New Patient This patient is new to me today: No - Critical Care Critical Care patient: No - Discharge Referral Referred to [facility] Med [facility].C[facility] No ATTENDING PHYSICIAN STATEMENT I saw and evaluated the patient. I reviewed the resident's note and discussed the case with the resident. I agree with the resident's findings and plan as documented. SUBJECTIVE: OBJECTIVE: ASSESSMENT AND PLAN:
--- NOTE | 2019-03-19 18:09 | PN ---
Teaching Attending Note Name of Resident: Bernice Garcia ATTENDING PHYSICIAN STATEMENT I saw and evaluated the patient. I reviewed the resident's note and discussed the case with the resident. I agree with the resident's findings and plan as documented. SUBJECTIVE: No fever or chills. No pain . feels tired. No SOB OBJECTIVE: NAD, awake, pleasant , and cooperative CV; Irreg irreg. no MRG Lungs: decreased breath sounds on R base, good air entry on L side. Abd: soft, NT, Nd , NL BS Ext: no edema on legs A/P: 83 y/o lady with h/o COPD, CAD, s/p stents, CKD, diastolic CHF, hypothyroidism, UTI, &th rib Fx , Hiatal hernia, a fib , colon ca, s/p resection , ischemic colitis , who presented with upper GI bleed. 1- Upper GI bleed from duodenitis 2- Acute on chronic diastolic heart failure exacerbation 3- Pleural effusions 4- S/p L chest tube 5- AMANDA on CKD 6- Hypotension 7-H/o A fib plan : - Cxray reviewed. d/w pulm. cont CT - Decrease lasix to 20 mg IV daily as cr is rising - Cont midodrine and add fludrocortisone due to persistent hypotension . d/w card - Hold Imdur and continue decreased dose of coreg - Monitor closely - Cont PPI - Cont eliquis - PT HLOC .
[2019-03-19] MEDS: LATANOPROST 0.005% OPHTH SOLN 2.5ML BOTTLE OU SCH (21:32)
[2019-03-20] MEDS: LEVOTHYROXINE NA 88 MCG TABLET (FP) PO SCH (07:06)
[2019-03-20] MEDS: ALBUTEROL SO4 2.5/IPRATROPIUM 0.5 INH SOL 3 ML VIAL.NEB. NEB SCH ×4 (07:30→20:50)
[2019-03-20 08:55] LABS: ALBUMIN 2.7 g/dl (3.4-5.0); ALK PHOS 58 U/L (45-117); ANION GAP 7 MMOL/L (8-16); BILIRUBIN,TOTAL 1.2 mg/dL (0.2-1); BLOOD UREA NITROGEN 34.9 mg/dL (7-18); CALCIUM 8.1 mg/dL (8.5-10.1); CHLORIDE 100 mmol/L (98-107); CO2 27 mmol/L (21-32); CREATININE 1.6 mg/dL (0.55-1.3); GLUCOSE,RANDOM 86 mg/dL (74-106); MAGNESIUM 1.8 mg/dL (1.8-2.4); POTASSIUM 4.2 mmol/L (3.5-5.1); SGOT/AST 7 U/L (15-37); SGPT/ALT < 6 U/L (13-61); SODIUM 134 mmol/L (136-145); TOT PROT 5.8 g/dl (6.4-8.2)
[2019-03-20] MEDS: CARVEDILOL 6.25 MG TABLET (FP) PO SCH ×2 (10:30→21:30)
[2019-03-20] MEDS: PANTOPRAZOLE 40 MG TABLET (FP) PO SCH ×2 (10:30→21:30)
[2019-03-20] MEDS: APIXABAN 2.5 MG TABLET PO SCH ×2 (10:30→21:30)
[2019-03-20] MEDS: MIDODRINE HCL 5 MG TABLET PO SCH ×3 (10:30→17:13)
[2019-03-20] MEDS: FLUDROCORTISONE ACETATE 0.1 MG TABLET (FP) PO SCH (10:31)
[2019-03-20] MEDS: POLYETHYLENE GLYCOL 3350 119 GM BTL PO SCH ×2 (10:33→21:30)
--- NOTE | 2019-03-20 10:46 | PN ---
Progress Note (short form) - Note Progress Note: PULMONARY MILD DISCOMFORT LEFT CHEST TUBE, DRAINAGE WITH DWINDLING OUTPUT OVER 24 HRS CXR APPEARS IMPROVED VSS/AFEBRILE Gen: less tachypneic Heart: RRR Lung: decreased breath sounds left base/left pigtail in place Abd: soft, nontender Ext: no edema meds/notes/images reviewed ASSESSMENT AND PLAN: Acute Hypoxic Respiratory Failure Acute on Chronic Diastolic Heart Failure Volume Overload GI Bleed Acute Blood Loss Anemia Acute Kidney Injury Anemia/Thrombocytopenia h/o Colon Ca Atrial Fibrillation COPD Hypothyroidism HTN - IV lasix - chest tube drainage likely to be removed in AM - monitor urine output, creatinine - monitor H/H - transfuse as needed - protonix - holding anticoagulation - PO per GI - DVT prophylaxis Dereck OWENS MD
--- NOTE | 2019-03-20 11:46 | PN ---
Physical Exam: SUBJECTIVE: Patient seen and examined at bedside- no aucte events overnight- patient states that she feels her breathing is "OK" she was not seen by PT yesterday and is feeling somewhat weak- she denies any CP/SOB/NV OBJECTIVE: Vital Signs Period Temp Pulse Resp BP Sys/[place] Pulse Ox Last 24 Hr 97.5 F-98.4 F 67-106 18-20 68-90/45-60 93-93 GENERAL: The patient is awake, alert, and fully oriented, in no acute distress. EYES:PEERLA; EOMI; no scleral icterus. NECK: no JVD: no lymphadenpoathy LUNGS:dimished breath sounds at the R base; no rales/rhonchi or wheezing . HEART: irregularly irregular, S1, S2 without murmur, rub or gallop. ABDOMEN: Soft, nontender, nondistended, normoactive bowel sounds, no guarding, no rebound, no hepatosplenomegaly, no masses. EXTREMITIES: 2+ pulses, warm, well-perfused, trace edema. . PSYCH: Normal mood, normal affect. SKIN: Warm, dry, normal turgor, no rashes or lesions noted Laboratory Results - last 24 hr 03/20/19 08:05 Sodium 134 L Potassium 4.2 Chloride 100 Carbon Dioxide 27 Anion Gap 7 L BUN 34.9 H Creatinine 1.6 H Est GFR (CKD-EPI)AfAm 33.70 Est GFR (CKD-EPI)NonAf 29.08 Random Glucose 86 Calcium 8.1 L Magnesium 1.8 Total Bilirubin 1.2 H AST 7 L ALT < 6 L Alkaline Phosphatase 58 Total Protein 5.8 L Albumin 2.7 L Active Medications Generic Name Dose Route Start Last Admin Trade Name Freq PRN Reason Stop Dose Admin Albuterol/Ipratropium 1 amp 03/18/19 08:00 03/20/19 07:30 Duoneb - NEB 1 amp RQID [facility] Administration Apixaban 2.5 mg 03/17/19 22:00 03/20/19 10:30 Eliquis - PO 2.5 mg BID [facility] Administration Carvedilol 6.25 mg 03/18/19 10:00 03/20/19 10:30 Coreg - PO Not Given BID [facility] Fludrocortisone Acetate 0.1 mg 03/19/19 13:00 03/20/19 10:31 Florinef - PO 0.1 mg DAILY [facility] Administration Furosemide 20 mg 03/19/19 10:52 Lasix Injection - IVPUSH DAILY [facility] Latanoprost 1 drop 03/18/19 22:00 03/19/19 21:32 Xalatan 0.005% Eye Drops - OU 1 drop HS [facility] Administration Levothyroxine Sodium 88 mcg 03/18/19 07:58 03/20/19 07:06 Synthroid - PO 88 mcg DAILY@0700 [facility] Administration Midodrine 10 mg 03/18/19 10:00 03/20/19 10:30 Proamatine - PO 10 mg TID-MID [facility] Administration Pantoprazole Sodium 40 mg 03/18/19 10:00 03/20/19 10:30 Protonix - PO 40 mg BID [facility] Administration Polyethylene Glycol 17 gm 03/18/19 10:00 03/20/19 10:33 Miralax (For Daily Use) - PO 17 grams BID [facility] ASSESSMENT/PLAN: 83 y/o female with pmh COPD, CAD, s/p stents, CKD, diastolic CHF, hypothyroidism, UTI, 8th rib Fx , Hiatal hernia, a fib , colon ca, s/p resection , ischemic colitis , who presented with upper GI bleed ##acute hypoxic respiratory failure 2/2 b/l pleural effusions #HFpEF -left chest tube- continuing to drain likely to be removed in AM -repeat CXRAY slightly improved -duonebs PRN -Lasix 20mg IV daily down from 40 as Cr was rising -cards following -pulm following #HTN fludrocortisone was added in addition to Midodrine 10 TID -monitor hemodynamics -holding imdur; decreased coreg to 6.25 BID -cards on board #Afib c/w eliquis 2.5 BID #GI bleed -patient no longer having any signs of GI bleed -a/c resumed -PO protonix daily -GI on board #Hypothyroidism c/w synthroid #CKD Cr this AM 1.6 (no change from yesterday) -c/w monitoring F/E/N not on fluids monitor electrolytes sodium controlled deit Problem List - Problems (1) GI bleed Code(s): K92.2 - GASTROINTESTINAL HEMORRHAGE, UNSPECIFIED (2) Gastroduodenitis with bleeding Code(s): K29.91 - GASTRODUODENITIS, UNSPECIFIED, WITH BLEEDING (3) Hypothyroid Code(s): E03.9 - HYPOTHYROIDISM, UNSPECIFIED (4) Acute on chronic systolic (congestive) heart failure Code(s): I50.23 - ACUTE ON CHRONIC SYSTOLIC (CONGESTIVE) HEART FAILURE Visit type - Emergency Visit Emergency Visit: Yes ED Registration Date: 03/12/19 Care time: The patient presented to the Emergency Department on the above date and was hospitalized for further evaluation of their emergent condition. - New Patient This patient is new to me today: No - Critical Care Critical Care patient: No ATTENDING PHYSICIAN STATEMENT I saw and evaluated the patient. I reviewed the resident's note and discussed the case with the resident. I agree with the resident's findings and plan as documented. SUBJECTIVE: OBJECTIVE: ASSESSMENT AND PLAN:
[2019-03-20] MEDS: FUROSEMIDE 40 MG/4 ML INJECTABLE VIAL IVPUSH SCH (11:57)
--- NOTE | 2019-03-20 14:05 | PN ---
Progress Note, Physician Chief Complaint: Cardiology for Dr. Moore History of Present Illness: No further GI bleed, borderline BP placed on midodrine and fluorinef. - Current Medication List Current Medications: Active Medications Albuterol/Ipratropium (Duoneb -) 1 amp NEB RQID [facility] Last Admin: 03/20/19 11:59 Dose: 1 amp Apixaban (Eliquis -) 2.5 mg PO BID [facility] Last Admin: 03/20/19 10:30 Dose: 2.5 mg Carvedilol (Coreg -) 6.25 mg PO BID [facility] Last Admin: 03/20/19 10:30 Dose: Not Given Fludrocortisone Acetate (Florinef -) 0.1 mg PO DAILY [facility] Last Admin: 03/20/19 10:31 Dose: 0.1 mg Furosemide (Lasix Injection -) 20 mg IVPUSH DAILY [facility] Last Admin: 03/20/19 11:57 Dose: Not Given Latanoprost (Xalatan 0.005% Eye Drops -) 1 drop OU HS [facility] Last Admin: 03/19/19 21:32 Dose: 1 drop Levothyroxine Sodium (Synthroid -) 88 mcg PO DAILY@0700 [facility] Last Admin: 03/20/19 07:06 Dose: 88 mcg Midodrine (Proamatine -) 10 mg PO TID-MID [facility] Last Admin: 03/20/19 13:28 Dose: 10 mg Pantoprazole Sodium (Protonix -) 40 mg PO BID [facility] Last Admin: 03/20/19 10:30 Dose: 40 mg Polyethylene Glycol (Miralax (For Daily Use) -) 17 gm PO BID [facility] Last Admin: 03/20/19 10:33 Dose: 17 grams - Objective Vital Signs: Vital Signs Temperature 98 F 03/20/19 13:26 Pulse Rate 88 03/20/19 13:26 Respiratory Rate 20 03/20/19 13:26 Blood Pressure 97/63 03/20/19 13:26 O2 Sat by Pulse Oximetry (%) 93 L 03/20/19 09:00 Constitutional: Yes: No Distress, Calm, Thin Neck: Yes: Supple Cardiovascular: Yes: Pulse Irregular Respiratory: Yes: Regular, Diminished, Other (Left chest tube) Gastrointestinal: Yes: Normal Bowel Sounds, Soft Edema: No Labs: CBC, BMP 03/18/19 07:35 03/20/19 08:05 INR, PTT INR 2.17 (0.83-1.09) H 03/13/19 06:30 - ....Imaging Chest X-ray: Report Reviewed (Left chest tube in place) Assessment/Plan 03/16/2019 Echo: Inferolateral AK, normal LV fxn, mod decreased RV fxn, mod MR, mod-severe TR, mod pulm HTN, moderate 1-2 cm pericardial effusion Problem List - Problems (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 - CONGENITAL MALFORMATION OF [place] UNSPECIFIED (2) Colon adenoma Code(s): D12.6 - BENIGN NEOPLASM OF COLON, UNSPECIFIED (3) GI bleed Code(s): K92.2 - GASTROINTESTINAL HEMORRHAGE, UNSPECIFIED (4) Gallstones Code(s): K80.20 - CALCULUS OF GALLBLADDER W/O CHOLECYSTITIS W/O OBSTRUCTION (5) Gastrointestinal hemorrhage with melena Code(s): K92.1 - MELENA (6) Hiatal hernia Code(s): K44.9 - DIAPHRAGMATIC HERNIA WITHOUT OBSTRUCTION OR GANGRENE (7) Hypothyroid Code(s): E03.9 - HYPOTHYROIDISM, UNSPECIFIED (8) AMANDA (acute kidney injury) Code(s): N17.9 - ACUTE KIDNEY FAILURE, UNSPECIFIED (9) ASHD (arteriosclerotic heart disease) Code(s): I25.10 - ATHSCL HEART DISEASE OF [place] CORONARY ARTERY W/O ANG PCTRS (10) Acute on chronic systolic (congestive) heart failure Code(s): I50.23 - ACUTE ON CHRONIC SYSTOLIC (CONGESTIVE) HEART FAILURE (11) Acute on chronic systolic and diastolic heart failure, NYHA class 3 Code(s): I50.43 - ACUTE ON CHRONIC COMBINED SYSTOLIC AND DIASTOLIC HRT FAIL (12) Ankle pain, left Code(s): M25.572 - PAIN IN LEFT ANKLE AND JOINTS OF LEFT FOOT (13) Anxiety Code(s): F41.9 - ANXIETY DISORDER, UNSPECIFIED (14) Breast pain in female Code(s): N64.4 - MASTODYNIA (15) CHF (congestive heart failure) Code(s): I50.9 - HEART FAILURE, UNSPECIFIED Qualifiers: Heart failure type: unspecified Heart failure chronicity: chronic Qualified Code(s): I50.9 - Heart failure, unspecified (16) COPD (chronic obstructive pulmonary disease) Code(s): J44.9 - CHRONIC OBSTRUCTIVE PULMONARY DISEASE, UNSPECIFIED (17) COPD exacerbation Code(s): J44.1 - CHRONIC OBSTRUCTIVE PULMONARY DISEASE W (ACUTE) EXACERBATION (18) COPD mixed type Code(s): J44.9 - CHRONIC OBSTRUCTIVE PULMONARY DISEASE, UNSPECIFIED (19) Chest pain Code(s): R07.9 - CHEST PAIN, UNSPECIFIED Qualifiers: Chest pain type: unspecified Qualified Code(s): R07.9 - Chest pain, unspecified (20) Colon cancer Code(s): C18.9 - MALIGNANT NEOPLASM OF COLON, UNSPECIFIED (21) Community acquired pneumonia Code(s): J18.9 - PNEUMONIA, UNSPECIFIED ORGANISM (22) Contusion of rib on right side Code(s): S20.211A - CONTUSION OF RIGHT FRONT WALL OF THORAX, INITIAL ENCOUNTER (23) DVT prophylaxis Code(s): [id number] - (24) Diverticulosis Code(s): K57.90 - DVRTCLOS OF INTEST, PART UNSP, W/O PERF OR ABSCESS W/O BLEED (25) Elevated glucose Code(s): R73.09 - OTHER ABNORMAL GLUCOSE (26) Elevated lactic acid level Code(s): E87.2 - ACIDOSIS (27) Elevated troponin Code(s): R79.89 - OTHER SPECIFIED ABNORMAL FINDINGS OF BLOOD CHEMISTRY (28) Elevated troponin I level Code(s): R79.89 - OTHER SPECIFIED ABNORMAL FINDINGS OF BLOOD CHEMISTRY (29) [place] cardiac risk >20% in next 10 years Code(s): Z91.89 - [facility] PERSONAL RISK FACTORS, NOT ELSEWHERE CLASSIFIED (30) Hyponatremia Code(s): E87.1 - HYPO-OSMOLALITY AND HYPONATREMIA (31) Hypotension Code(s): I95.9 - HYPOTENSION, UNSPECIFIED Qualifiers: Hypotension type: unspecified hypotension type Qualified Code(s): I95.9 - Hypotension, unspecified (32) Hypoxia Code(s): R09.02 - HYPOXEMIA (33) Lactic acid acidosis Code(s): E87.2 - ACIDOSIS (34) Microcytic hypochromic anemia Code(s): D50.9 - IRON DEFICIENCY ANEMIA, UNSPECIFIED (35) Moderate to severe pulmonary hypertension Code(s): I27.2 - OTHER SECONDARY PULMONARY HYPERTENSION * DO NOT USE * (36) Pericardial effusion Code(s): I31.3 - PERICARDIAL EFFUSION (NONINFLAMMATORY) (37) Periorbital hematoma of left eye Code(s): H05.232 - HEMORRHAGE OF LEFT ORBIT (38) Peripheral edema Code(s): R60.9 - EDEMA, UNSPECIFIED (39) Plantar fasciitis Code(s): M72.2 - PLANTAR FASCIAL FIBROMATOSIS (40) Pleural effusion Code(s): J90 - PLEURAL EFFUSION, NOT ELSEWHERE CLASSIFIED (41) Pneumonia Code(s): J18.9 - PNEUMONIA, UNSPECIFIED ORGANISM (42) Renal dysfunction Code(s): N28.9 - DISORDER OF KIDNEY AND URETER, UNSPECIFIED (43) Respiratory distress Code(s): R06.00 - DYSPNEA, UNSPECIFIED (44) Respiratory failure Code(s): J96.90 - RESPIRATORY FAILURE, UNSP, UNSP W HYPOXIA OR HYPERCAPNIA (45) Sepsis Code(s): A41.9 - SEPSIS, UNSPECIFIED ORGANISM (46) Sepsis due to pneumonia Code(s): J18.9 - PNEUMONIA, UNSPECIFIED ORGANISM; A41.9 - SEPSIS, UNSPECIFIED ORGANISM (47) Severe mitral regurgitation Code(s): I34.0 - NONRHEUMATIC MITRAL (VALVE) INSUFFICIENCY (48) Anemia Code(s): D64.9 - ANEMIA, UNSPECIFIED Qualifiers: Anemia type: unspecified type Qualified Code(s): D64.9 - Anemia, unspecified (49) Atrial fibrillation Code(s): I48.91 - UNSPECIFIED ATRIAL FIBRILLATION Qualifiers: Atrial fibrillation type: unspecified Qualified Code(s): I48.91 - Unspecified atrial fibrillation (50) Hypertension Code(s): I10 - ESSENTIAL (PRIMARY) HYPERTENSION (51) NSTEMI (non-ST elevated myocardial infarction) Code(s): I21.4 - NON-ST ELEVATION (NSTEMI) MYOCARDIAL INFARCTION Assessment/Plan 1. Acute Hypoxic Respiratory Failure post left chest tube 2. Acute on Chronic Diastolic Heart Failure (EF55% 11/2017) 3. Post endoscopy hypotension requiring pressors 4. GI Bleed with Acute Blood Loss Anemia and thrombocytopenia 5. Acute on chronic Kidney Injury at baseline 6. h/o Colon Ca 7. Atrial Fibrillation on eliquis 8. COPD 9. Hypothyroidism 10. HTN 11. CAD NSTEMI s/p stent placement 1. IV diuresis with monitor diuretic response, renal fxn and electrolytes 2. Continue Eliquis 2.5 bid, carvedilol 6.25 bid, midodrine 10 tid, fluorinef 0.1 qd 3. Continue Lt chest tube drainage, plan for d/c in AM 4. Monitor H/H, transfuse as needed, protonix
--- NOTE | 2019-03-20 15:51 | PN ---
Teaching Attending Note Name of Resident: Lorelei Love ATTENDING PHYSICIAN STATEMENT I saw and evaluated the patient. I reviewed the resident's note and discussed the case with the resident. I agree with the resident's findings and plan as documented. SUBJECTIVE: No fever or chills. SOB improved. No SCHMID. No CP. OBJECTIVE: NAD, awake, pleasant , and cooperative CV; Irreg irreg. no MRG Lungs: decreased breath sounds on R base, good air entry on L side. Ext: no edema on legs. A/P: 83 y/o lady with h/o COPD, CAD, s/p stents, CKD, diastolic CHF, hypothyroidism, UTI, &th rib Fx , Hiatal hernia, a fib , colon ca, s/p resection , ischemic colitis , who presented with upper GI bleed. 1- Upper GI bleed from duodenitis 2- Acute on chronic diastolic heart failure exacerbation 3- Pleural effusions 4- S/p L chest tube 5- AMANDA on CKD 6- Hypotension 7-H/o A fib plan : - Monitor CT . possibel dc tomorrow - cont lasix. - cr is stable . cont to monitor - Cont midodrine and fludrocortisone due to persistent hypotension . - Cont to hold Imdur and continue decreased dose of coreg - Cont PPI - Cont eliquis - PT HLOC .
[2019-03-20] MEDS: LATANOPROST 0.005% OPHTH SOLN 2.5ML BOTTLE OU SCH (21:30)
[2019-03-21] MEDS: LEVOTHYROXINE NA 88 MCG TABLET (FP) PO SCH (06:29)
[2019-03-21] MEDS: ALBUTEROL SO4 2.5/IPRATROPIUM 0.5 INH SOL 3 ML VIAL.NEB. NEB SCH ×4 (07:30→20:09)
[2019-03-21 08:08] LABS: ALBUMIN 2.9 g/dl (3.4-5.0); BILIRUBIN,TOTAL 1.3 mg/dL (0.2-1); BLOOD UREA NITROGEN 33.9 mg/dL (7-18); CALCIUM 8.4 mg/dL (8.5-10.1); CREATININE 1.3 mg/dL (0.55-1.3); MAGNESIUM 1.8 mg/dL (1.8-2.4); PHOSPHOROUS 2.4 mg/dL (2.5-4.9); POTASSIUM 4.2 mmol/L (3.5-5.1); TOT PROT 6.2 g/dl (6.4-8.2)
[2019-03-21] MEDS ORDERED: NAPH,MB-DB/K PH,MBDB POWDER PACKET PO ONE (09:00)
[2019-03-21] MEDS: PANTOPRAZOLE 40 MG TABLET (FP) PO SCH ×2 (09:45→21:53)
[2019-03-21] MEDS: MIDODRINE HCL 5 MG TABLET PO SCH ×3 (09:45→17:00)
[2019-03-21] MEDS: APIXABAN 2.5 MG TABLET PO SCH ×2 (09:45→21:53)
[2019-03-21] MEDS: FLUDROCORTISONE ACETATE 0.1 MG TABLET (FP) PO SCH (09:45)
[2019-03-21] MEDS: FUROSEMIDE 40 MG/4 ML INJECTABLE VIAL IVPUSH SCH (09:46)
[2019-03-21] MEDS: POLYETHYLENE GLYCOL 3350 119 GM BTL PO SCH ×2 (09:46→21:53)
[2019-03-21] MEDS: CARVEDILOL 6.25 MG TABLET (FP) PO SCH ×2 (09:46→21:53)
--- NOTE | 2019-03-21 12:53 | PN ---
Progress Note (short form) - Note Progress Note: PULMONARY MILD DISCOMFORT LEFT CHEST TUBE, DRAINAGE WITH DWINDLING OUTPUT OVER 24 HRS CXR APPEARS IMPROVED 03/19 VSS/AFEBRILE Gen: less tachypneic Heart: RRR Lung: decreased breath sounds left base/left pigtail in place Abd: soft, nontender Ext: no edema meds/notes/images reviewed ASSESSMENT AND PLAN: Acute Hypoxic Respiratory Failure Acute on Chronic Diastolic Heart Failure Volume Overload GI Bleed Acute Blood Loss Anemia Acute Kidney Injury Anemia/Thrombocytopenia h/o Colon Ca Atrial Fibrillation COPD Hypothyroidism HTN - IV lasix - chest tube drainage likely to be removed in AM - monitor urine output, creatinine - monitor H/H - transfuse as needed - protonix - holding anticoagulation - PO per GI - DVT prophylaxis - order portable CXR today Dereck OWENS MD
[2019-03-21] MEDS ORDERED: ACETAMINOPHEN 325 MG TABLET (FP) PO PRN (15:41)
--- NOTE | 2019-03-21 15:47 | PN ---
Progress Note (short form) - Note Progress Note: Subjective: has pain in L chest at site of the tube Objective: Vital Signs: Last Vital Signs Temp Pulse Resp BP Pulse Ox 97.3 F L 87 20 103/68 91 L 03/21/19 14:00 03/21/19 14:00 03/21/19 14:00 03/21/19 14:00 03/21/19 08:34 Laboratory Results - last 24 hr 03/21/19 06:50 Sodium 133 L Potassium 4.2 Chloride 100 Carbon Dioxide 26 Anion Gap 8 BUN 33.9 H Creatinine 1.3 Est GFR (CKD-EPI)AfAm 43.32 Est GFR (CKD-EPI)NonAf 37.38 Random Glucose 87 Calcium 8.4 L Phosphorus 2.4 L Magnesium 1.8 Total Bilirubin 1.3 H AST 10 L ALT 7 L Alkaline Phosphatase 67 Total Protein 6.2 L Albumin 2.9 L Physical Exam: NAD, awake, pleasant, and cooperative CV; Irreg irreg. no MRG Lungs: decreased breath sounds on R base, good air entry on L side. CT in place with clean dressing on site Ext: no edema on legs. A/P: 83 y/o lady with h/o COPD, CAD, s/p stents, CKD, diastolic CHF, hypothyroidism, UTI, &th rib Fx , Hiatal hernia, a fib , colon ca, s/p resection , ischemic colitis , who presented with upper GI bleed. 1- Upper GI bleed from duodenitis 2- Acute on chronic diastolic heart failure exacerbation 3- Pleural effusions 4- S/p L chest tube 5- AMANDA on CKD 6- Hypotension 7-H/o A fib plan : - Monitor CT. removal per pulmonary - cxray reviewed. No pneumothorax - add tylenol - cont lasix at current dose - cr is stable . cont to monitor - cr improved - Cont midodrine and fludrocortisone due to persistent hypotension . - Cont to hold Imdur and continue decreased dose of coreg - Cont PPI - Cont eliquis - PT HLOC . Visit type - Emergency Visit Emergency Visit: Yes ED Registration Date: 03/12/19 Care time: The patient presented to the Emergency Department on the above date and was hospitalized for further evaluation of their emergent condition. - New Patient This patient is new to me today: No - Critical Care Critical Care patient: No
[2019-03-21] MEDS: LATANOPROST 0.005% OPHTH SOLN 2.5ML BOTTLE OU SCH (21:53)
[2019-03-22] MEDS: LEVOTHYROXINE NA 88 MCG TABLET (FP) PO SCH (06:10)
[2019-03-22] MEDS: ALBUTEROL SO4 2.5/IPRATROPIUM 0.5 INH SOL 3 ML VIAL.NEB. NEB SCH ×5 (07:31→20:15)
[2019-03-22 07:56] LABS: BLOOD UREA NITROGEN 31.6 mg/dL (7-18); CALCIUM 8.3 mg/dL (8.5-10.1); CREATININE 1.3 mg/dL (0.55-1.3)
[2019-03-22] MEDS ORDERED: PT OWN MED DRAWER 7, Y5N ONE ×2 (09:44→14:36)
[2019-03-22] MEDS: FLUDROCORTISONE ACETATE 0.1 MG TABLET (FP) PO SCH (09:49)
[2019-03-22] MEDS: APIXABAN 2.5 MG TABLET PO SCH ×2 (09:49→21:53)
[2019-03-22] MEDS: CARVEDILOL 6.25 MG TABLET (FP) PO SCH ×2 (09:49→21:53)
[2019-03-22] MEDS: FUROSEMIDE 40 MG/4 ML INJECTABLE VIAL IVPUSH SCH (09:50)
[2019-03-22] MEDS: PANTOPRAZOLE 40 MG TABLET (FP) PO SCH ×2 (09:50→21:53)
[2019-03-22] MEDS: MIDODRINE HCL 5 MG TABLET PO SCH ×3 (09:50→18:00)
--- NOTE | 2019-03-22 10:28 | PN ---
Progress Note (short form) - Note Progress Note: PULMONARY States breathing is improving. Chest tube draining less. Vital Signs Period Temp Pulse Resp BP Sys/[place] Pulse Ox Last 24 Hr 97.3 F-98.1 F 74-95 18-20 94-116/54-72 91 Intake & Output 03/19/19 03/20/19 03/21/19 03/22/19 23:59 23:59 23:59 23:59 Intake Total 300 1100 1000 150 Output Total 263 550 800 60 Balance 37 550 200 90 Weight 63.503 kg 61.416 kg 60.6 kg 60.81 kg Gen: mildly tachypneic at rest Heart: RRR Lung: decreased breath sounds at the bases Abd: soft, nontender Ext: no edema CBC, BMP 03/18/19 07:35 03/22/19 06:45 Active Medications Acetaminophen (Tylenol -) 650 mg PO Q6H PRN PRN Reason: PAIN Last Admin: 03/21/19 16:53 Dose: 650 mg Albuterol/Ipratropium (Duoneb -) 1 amp NEB RQID [facility] Last Admin: 03/22/19 08:15 Dose: 1 amp Apixaban (Eliquis -) 2.5 mg PO BID [facility] Last Admin: 03/22/19 09:49 Dose: 2.5 mg Carvedilol (Coreg -) 6.25 mg PO BID [facility] Last Admin: 03/22/19 09:49 Dose: Not Given Fludrocortisone Acetate (Florinef -) 0.1 mg PO DAILY [facility] Last Admin: 03/22/19 09:49 Dose: 0.1 mg Furosemide (Lasix Injection -) 20 mg IVPUSH DAILY [facility] Last Admin: 03/22/19 09:50 Dose: Not Given Latanoprost (Xalatan 0.005% Eye Drops -) 1 drop OU HS [facility] Last Admin: 03/21/19 21:53 Dose: 1 drop Levothyroxine Sodium (Synthroid -) 88 mcg PO DAILY@0700 [facility] Last Admin: 03/22/19 06:10 Dose: 88 mcg Midodrine (Proamatine -) 10 mg PO TID-MID [facility] Last Admin: 03/22/19 09:50 Dose: 10 mg Pantoprazole Sodium (Protonix -) 40 mg PO BID [facility] Last Admin: 03/22/19 09:50 Dose: 40 mg Polyethylene Glycol (Miralax (For Daily Use) -) 17 gm PO BID [facility] Last Admin: 03/21/19 21:53 Dose: 17 grams A/P Acute Hypoxic Respiratory Failure improving Acute on Chronic Diastolic Heart Failure Volume Overload Pleural Effusions s/p Left Pigtail Catheter placement GI Bleed Acute Blood Loss Anemia Acute Kidney Injury Anemia/Thrombocytopenia h/o Colon Ca Atrial Fibrillation COPD Hypothyroidism HTN - continue lasix - will d/c chest tube - monitor urine output, creatinine - monitor H/H - protonix - continue anticoagulation
[2019-03-22] MEDS: POLYETHYLENE GLYCOL 3350 119 GM BTL PO SCH ×3 (11:35→22:25)
--- NOTE | 2019-03-22 15:59 | PN ---
Teaching Attending Note Name of Resident: Lorelei Love ATTENDING PHYSICIAN STATEMENT I saw and evaluated the patient. I reviewed the resident's note and discussed the case with the resident. I agree with the resident's findings and plan as documented. SUBJECTIVE: No fever or chills. No SOB or CP OBJECTIVE: NAD, awake, pleasant, and cooperative CV; Irreg irreg. no MRG Lungs: decreased breath sounds on R base, good air entry on L side. a dry dressing on site of chest tube Ext: no edema on legs. A/P: 83 y/o lady with h/o COPD, CAD, s/p stents, CKD, diastolic CHF, hypothyroidism, UTI, &th rib Fx , Hiatal hernia, a fib , colon ca, s/p resection , ischemic colitis , who presented with upper GI bleed. 1- Upper GI bleed from duodenitis 2- Acute on chronic diastolic heart failure exacerbation 3- Pleural effusions 4- S/p L chest tube . Now removed 5- AMANDA on CKD 6- Hypotension 7-H/o A fib plan : - CT removed today - will switch ot po lasix likely tomorrow - cr is stable . cont to monitor - Cont midodrine and fludrocortisone due to persistent hypotension . - Cont to hold Imdur and continue decreased dose of coreg - Cont PPI - Cont eliquis - PT HLOC . needs rehab. team d/w SW . hopefully can go tomorrow
--- NOTE | 2019-03-22 16:07 | PN ---
Progress Note, Physician History of Present Illness: Patient is an 83 y/o Female with a PMhx of atrial fibrillation (on Eliquis), HTN, COPD, NSTEMI s/p stent placement, CAD, HFpEF (EF55% 11/2017), and colon cancer who presented to ED.for having generalized weakness x 1 week. Patient stated that she noticed dark, tarry stools. Patient lives by herself and is very active. while in Ed. was found to have low blood pressure and positive for tarry stool, with shortness of breath. - Current Medication List Current Medications: Active Medications Acetaminophen (Tylenol -) 650 mg PO Q6H PRN PRN Reason: PAIN Last Admin: 03/21/19 16:53 Dose: 650 mg Albuterol/Ipratropium (Duoneb -) 1 amp NEB RQID [facility] Last Admin: 03/22/19 16:02 Dose: 1 amp Apixaban (Eliquis -) 2.5 mg PO BID [facility] Last Admin: 03/22/19 09:49 Dose: 2.5 mg Carvedilol (Coreg -) 6.25 mg PO BID [facility] Last Admin: 03/22/19 09:49 Dose: Not Given Fludrocortisone Acetate (Florinef -) 0.1 mg PO DAILY [facility] Last Admin: 03/22/19 09:49 Dose: 0.1 mg Furosemide (Lasix Injection -) 20 mg IVPUSH DAILY [facility] Last Admin: 03/22/19 09:50 Dose: Not Given Latanoprost (Xalatan 0.005% Eye Drops -) 1 drop OU HS [facility] Last Admin: 03/21/19 21:53 Dose: 1 drop Levothyroxine Sodium (Synthroid -) 88 mcg PO DAILY@0700 [facility] Last Admin: 03/22/19 06:10 Dose: 88 mcg Midodrine (Proamatine -) 10 mg PO TID-MID [facility] Last Admin: 03/22/19 14:54 Dose: 10 mg Pantoprazole Sodium (Protonix -) 40 mg PO BID [facility] Last Admin: 03/22/19 09:50 Dose: 40 mg Polyethylene Glycol (Miralax (For Daily Use) -) 17 gm PO BID [facility] Last Admin: 03/22/19 11:35 Dose: 17 grams - Objective Vital Signs: Vital Signs Temperature 97.6 F 03/22/19 14:00 Pulse Rate 86 03/22/19 14:00 Respiratory Rate 20 03/22/19 14:00 Blood Pressure 105/65 03/22/19 14:00 O2 Sat by Pulse Oximetry (%) 91 L 03/21/19 21:00 Eyes: Yes: WNL, Conjunctiva Clear, EOM Intact HENT: Yes: WNL, Atraumatic, Normocephalic Neck: Yes: WNL, Supple, Trachea Midline Cardiovascular: Yes: Pulse Irregular Respiratory: Yes: Diminished Gastrointestinal: Yes: WNL, Normal Bowel Sounds Genitourinary: Yes: WNL Musculoskeletal: Yes: WNL Extremities: Yes: WNL Edema: No Integumentary: Yes: WNL Neurological: Yes: WNL, Alert, Oriented ...Motor Strength: WNL Psychiatric: Yes: WNL Labs: CBC, BMP 03/18/19 07:35 03/22/19 06:45 INR, PTT INR 2.17 (0.83-1.09) H 03/13/19 06:30 Problem List - Problems (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 - CONGENITAL MALFORMATION OF [place] UNSPECIFIED (2) Colon adenoma Code(s): D12.6 - BENIGN NEOPLASM OF COLON, UNSPECIFIED (3) GI bleed Code(s): K92.2 - GASTROINTESTINAL HEMORRHAGE, UNSPECIFIED (4) Gallstones Code(s): K80.20 - CALCULUS OF GALLBLADDER W/O CHOLECYSTITIS W/O OBSTRUCTION (5) Gastrointestinal hemorrhage with melena Code(s): K92.1 - MELENA (6) Hiatal hernia Code(s): K44.9 - DIAPHRAGMATIC HERNIA WITHOUT OBSTRUCTION OR GANGRENE (7) Hypothyroid Code(s): E03.9 - HYPOTHYROIDISM, UNSPECIFIED (8) AMANDA (acute kidney injury) Code(s): N17.9 - ACUTE KIDNEY FAILURE, UNSPECIFIED (9) ASHD (arteriosclerotic heart disease) Code(s): I25.10 - ATHSCL HEART DISEASE OF [place] CORONARY ARTERY W/O ANG PCTRS (10) Acute on chronic systolic (congestive) heart failure Code(s): I50.23 - ACUTE ON CHRONIC SYSTOLIC (CONGESTIVE) HEART FAILURE (11) Acute on chronic systolic and diastolic heart failure, NYHA class 3 Code(s): I50.43 - ACUTE ON CHRONIC COMBINED SYSTOLIC AND DIASTOLIC HRT FAIL (12) Ankle pain, left Code(s): M25.572 - PAIN IN LEFT ANKLE AND JOINTS OF LEFT FOOT (13) Anxiety Code(s): F41.9 - ANXIETY DISORDER, UNSPECIFIED (14) Breast pain in female Code(s): N64.4 - MASTODYNIA (15) CHF (congestive heart failure) Code(s): I50.9 - HEART FAILURE, UNSPECIFIED Qualifiers: Heart failure type: unspecified Heart failure chronicity: chronic Qualified Code(s): I50.9 - Heart failure, unspecified (16) COPD (chronic obstructive pulmonary disease) Code(s): J44.9 - CHRONIC OBSTRUCTIVE PULMONARY DISEASE, UNSPECIFIED (17) COPD exacerbation Code(s): J44.1 - CHRONIC OBSTRUCTIVE PULMONARY DISEASE W (ACUTE) EXACERBATION (18) COPD mixed type Code(s): J44.9 - CHRONIC OBSTRUCTIVE PULMONARY DISEASE, UNSPECIFIED (19) Chest pain Code(s): R07.9 - CHEST PAIN, UNSPECIFIED Qualifiers: Chest pain type: unspecified Qualified Code(s): R07.9 - Chest pain, unspecified (20) Colon cancer Code(s): C18.9 - MALIGNANT NEOPLASM OF COLON, UNSPECIFIED (21) Community acquired pneumonia Code(s): J18.9 - PNEUMONIA, UNSPECIFIED ORGANISM (22) Contusion of rib on right side Code(s): S20.211A - CONTUSION OF RIGHT FRONT WALL OF THORAX, INITIAL ENCOUNTER (23) DVT prophylaxis Code(s): [id number] - (24) Diverticulosis Code(s): K57.90 - DVRTCLOS OF INTEST, PART UNSP, W/O PERF OR ABSCESS W/O BLEED (25) Elevated glucose Code(s): R73.09 - OTHER ABNORMAL GLUCOSE (26) Elevated lactic acid level Code(s): E87.2 - ACIDOSIS (27) Elevated troponin Code(s): R79.89 - OTHER SPECIFIED ABNORMAL FINDINGS OF BLOOD CHEMISTRY (28) Elevated troponin I level Code(s): R79.89 - OTHER SPECIFIED ABNORMAL FINDINGS OF BLOOD CHEMISTRY (29) [place] cardiac risk >20% in next 10 years Code(s): Z91.89 - [place] PERSONAL RISK FACTORS, NOT ELSEWHERE CLASSIFIED (30) Hyponatremia Code(s): E87.1 - HYPO-OSMOLALITY AND HYPONATREMIA (31) Hypotension Code(s): I95.9 - HYPOTENSION, UNSPECIFIED Qualifiers: Hypotension type: unspecified hypotension type Qualified Code(s): I95.9 - Hypotension, unspecified (32) Hypoxia Code(s): R09.02 - HYPOXEMIA (33) Lactic acid acidosis Code(s): E87.2 - ACIDOSIS (34) Microcytic hypochromic anemia Code(s): D50.9 - IRON DEFICIENCY ANEMIA, UNSPECIFIED (35) Moderate to severe pulmonary hypertension Code(s): I27.2 - OTHER SECONDARY PULMONARY HYPERTENSION * DO NOT USE * (36) Pericardial effusion Code(s): I31.3 - PERICARDIAL EFFUSION (NONINFLAMMATORY) (37) Periorbital hematoma of left eye Code(s): H05.232 - HEMORRHAGE OF LEFT ORBIT (38) Peripheral edema Code(s): R60.9 - EDEMA, UNSPECIFIED (39) Plantar fasciitis Code(s): M72.2 - PLANTAR FASCIAL FIBROMATOSIS (40) Pleural effusion Code(s): J90 - PLEURAL EFFUSION, NOT ELSEWHERE CLASSIFIED (41) Pneumonia Code(s): J18.9 - PNEUMONIA, UNSPECIFIED ORGANISM (42) Renal dysfunction Code(s): N28.9 - DISORDER OF KIDNEY AND URETER, UNSPECIFIED (43) Respiratory distress Code(s): R06.00 - DYSPNEA, UNSPECIFIED (44) Respiratory failure Code(s): J96.90 - RESPIRATORY FAILURE, UNSP, UNSP W HYPOXIA OR HYPERCAPNIA (45) Sepsis Code(s): A41.9 - SEPSIS, UNSPECIFIED ORGANISM (46) Sepsis due to pneumonia Code(s): J18.9 - PNEUMONIA, UNSPECIFIED ORGANISM; A41.9 - SEPSIS, UNSPECIFIED ORGANISM (47) Severe mitral regurgitation Code(s): I34.0 - NONRHEUMATIC MITRAL (VALVE) INSUFFICIENCY (48) Anemia Code(s): D64.9 - ANEMIA, UNSPECIFIED Qualifiers: Anemia type: unspecified type Qualified Code(s): D64.9 - Anemia, unspecified (49) Atrial fibrillation Code(s): I48.91 - UNSPECIFIED ATRIAL FIBRILLATION Qualifiers: Atrial fibrillation type: unspecified Qualified Code(s): I48.91 - Unspecified atrial fibrillation (50) Hypertension Code(s): I10 - ESSENTIAL (PRIMARY) HYPERTENSION (51) NSTEMI (non-ST elevated myocardial infarction) Code(s): I21.4 - NON-ST ELEVATION (NSTEMI) MYOCARDIAL INFARCTION Assessment/Plan Assessment/Plan 1. Acute Hypoxic Respiratory Failure post left chest tube 2. Acute on Chronic Diastolic Heart Failure (EF55% 11/2017) 3. Post endoscopy hypotension requiring pressors 4. GI Bleed with Acute Blood Loss Anemia and thrombocytopenia 5. Acute on chronic Kidney Injury at baseline 6. h/o Colon Ca 7. Atrial Fibrillation on eliquis 8. COPD 9. Hypothyroidism 10. HTN 11. CAD NSTEMI s/p stent placement 1. IV diuresis with monitor diuretic response, renal fxn and electrolytes 2. Continue Eliquis 2.5 bid, carvedilol 6.25 bid, midodrine 10 tid, fluorinef 0.1 qd 3. Monitor H/H, transfuse as needed, protonix
--- NOTE | 2019-03-22 16:16 | PN ---
Physical Exam: SUBJECTIVE: Patient seen and examined. She reports breathing feels a little better than yesterday. She continues to report discomfort from chest tube. Cough is sometimes productive, but not as much as before. She denies chills, fever, chest pain, or abdominal pain. Chest tube was removed following interview and exam. OBJECTIVE: Vital Signs Period Temp Pulse Resp BP Sys/Tenorio Pulse Ox Last 24 Hr 97.3 F-98.1 F 74-101 18-20 94-116/54-72 91 GENERAL: The patient is awake, alert, and fully oriented, not in distress HEAD: Normal with no signs of trauma. EYES: PERRL, extraocular movements intact, anicteric sclera, conjunctiva clear. ENT: Ears normal, nares patent, moist mucous membranes. NECK: Trachea midline, full range of motion LUNGS: Right side expiratory wheezing, left lung CTA, left drain in place HEART: Regular rate and irregular rhythm, no murmur ABDOMEN: Soft, nontender, nondistended, hyperactive bowel sounds EXTREMITIES: Warm, well-perfused, +1 edema b/l LE, dry, flaky skin on feet R>L NEUROLOGICAL: Cranial nerves II through XII grossly intact. Normal speech. PSYCH: Normal mood, normal affect. SKIN: Warm, dry, normal turgor, no rashes or lesions noted Laboratory Results - last 24 hr 03/22/19 06:45 Sodium 135 L Potassium 4.0 Chloride 101 Carbon Dioxide 28 Anion Gap 6 L BUN 31.6 H Creatinine 1.3 Est GFR (CKD-EPI)AfAm 43.32 Est GFR (CKD-EPI)NonAf 37.38 Random Glucose 76 Calcium 8.3 L Active Medications Generic Name Dose Route Start Last Admin Trade Name Freq PRN Reason Stop Dose Admin Acetaminophen 650 mg 03/21/19 15:41 03/21/19 16:53 Tylenol - PO 650 mg Q6H PRN Administration PAIN Albuterol/Ipratropium 1 amp 03/18/19 08:00 03/22/19 16:02 Duoneb - NEB 1 amp RQID LUKE Administration Apixaban 2.5 mg 03/17/19 22:00 03/22/19 09:49 Eliquis - PO 2.5 mg BID LUKE Administration Carvedilol 6.25 mg 03/18/19 10:00 03/22/19 09:49 Coreg - PO Not Given BID LUKE Fludrocortisone Acetate 0.1 mg 03/19/19 13:00 03/22/19 09:49 Florinef - PO 0.1 mg DAILY LUKE Administration Furosemide 20 mg 03/19/19 10:52 03/22/19 09:50 Lasix Injection - IVPUSH Not Given DAILY LUKE Latanoprost 1 drop 03/18/19 22:00 03/21/19 21:53 Xalatan 0.005% Eye Drops - OU 1 drop HS LUKE Administration Levothyroxine Sodium 88 mcg 03/18/19 07:58 03/22/19 06:10 Synthroid - PO 88 mcg DAILY@0700 LUKE Administration Midodrine 10 mg 03/18/19 10:00 03/22/19 14:54 Proamatine - PO 10 mg TID-MID LUKE Administration Pantoprazole Sodium 40 mg 03/18/19 10:00 03/22/19 09:50 Protonix - PO 40 mg BID LUKE Administration Polyethylene Glycol 17 gm 03/18/19 10:00 03/22/19 11:35 Miralax (For Daily Use) - PO 17 grams BID [facility]KE Administration ASSESSMENT/PLAN: Ms. Leiva is an 83y/o female with afib (on Eliquis), HTN, COPD, NSTEMI s/p stent, CAD, HFpEF (EF55% 11/2017), and colon cancer who presents with weakness x 1 week. Pt was found to be hypotensive and anemic (5.5). Pt became hypotensive and hypoxic during EGD but improved with epi and ambu-bagging. #acute hypoxic respiratory failure 2/2 b/l pleural effusions, improved #HFpEF -left chest tube removed today -duo-neb -Lasix 20mg IV daily, plan to switch to PO -cards following -pulm following #hypotension -midodrine 10mg TID -fludrocortisone 0.1mg daily -PT #afib -carvedilol 6.25mg BID -Eliquis #AMANDA, resolved Cr stable -Lasix 20mg IV -monitor for changes given started Lasix #normocytic anemia 2/2 resolving duodenitis and possible small ulcer, s/p transfusion -monitor labs -PO protonix 40mg BID #glaucoma -latanoprost #HTN -monitor pressure -cavedilol 12.5mg BID as tolerated #hypothyroidism -Synthroid #hypomagnesemia, resolved DVT Ppx Eliquis FEN no standing fluids monitor labs sodium controlled diet dispo med/surg, d/c after placement determined FULL CODE Visit type - Emergency Visit Emergency Visit: Yes ED Registration Date: 03/12/19 Care time: The patient presented to the Emergency Department on the above date and was hospitalized for further evaluation of their emergent condition. - New Patient This patient is new to me today: No - Critical Care Critical Care patient: No - Discharge Referral Referred to [facility] Med P.C.: No ATTENDING PHYSICIAN STATEMENT I saw and evaluated the patient. I reviewed the resident's note and discussed the case with the resident. I agree with the resident's findings and plan as documented. SUBJECTIVE: OBJECTIVE: ASSESSMENT AND PLAN:
--- NOTE | 2019-03-22 18:52 | PATH ---
Cytology Non-Gynecological Report Patient Name: JUANITA DIAZ Med. Rec. #: [id number] /Age/Gender: 1935 (Age: 83) / F Account: [id number] Location: [facility] MED/SURG Taken: 03/16/2019 Received: 03/17/2019 Reported: 03/22/2019 Physicians: Daja Fontana M.D. Specimen(s) Received PLEURAL FLUID Clinical History Pleural effusion Final Diagnosis PLEURAL FLUID, THORACENTESIS: SATISFACTORY FOR EVALUATION NO MALIGNANT CELLS IDENTIFIED. RARE MESOTHELIAL CELLS AND LYMPHOCYTES PRESENT. Electronically Signed Rubina Sanchez M.D. Gross Description Approximately 5cc of yellow fluid received fresh. One cytospin and one cellblock prepared.
[2019-03-22] MEDS: LATANOPROST 0.005% OPHTH SOLN 2.5ML BOTTLE OU SCH ×2 (21:53→22:26)
[2019-03-23] MEDS: ALBUTEROL SO4 2.5/IPRATROPIUM 0.5 INH SOL 3 ML VIAL.NEB. NEB SCH ×4 (07:25→21:10)
[2019-03-23] MEDS: LEVOTHYROXINE NA 88 MCG TABLET (FP) PO SCH (07:28)
[2019-03-23 08:28] LABS: HEMATOCRIT 27.1 % (32.4-45.2); HEMOGLOBIN 8.7 GM/dL (10.7-15.3); MCH 28.9 pg (25.7-33.7); MCHC 32.2 g/dl (32.0-36.0); MEAN CELL VOLUME 89.7 fl (80-96); MEAN PLT VOLUME 8.1 fl (7.5-11.1); PLATELET COUNT 135 K/MM3 (134-434); RBC 3.02 M/mm3 (3.60-5.2); WHITE BLOOD COUNT 3.3 K/mm3 (4.0-10.0)
[2019-03-23 08:55] LABS: ALBUMIN 2.6 g/dl (3.4-5.0); CALCIUM 8.5 mg/dL (8.5-10.1); CREATININE 1.2 mg/dL (0.55-1.3); PHOSPHOROUS 3.6 mg/dL (2.5-4.9); POTASSIUM 4.4 mmol/L (3.5-5.1); TOT PROT 5.7 g/dl (6.4-8.2)
[2019-03-23] MEDS: APIXABAN 2.5 MG TABLET PO SCH (09:58)
[2019-03-23] MEDS: PANTOPRAZOLE 40 MG TABLET (FP) PO SCH ×2 (09:58→21:20)
[2019-03-23] MEDS: MIDODRINE HCL 5 MG TABLET PO SCH ×3 (10:01→18:35)
[2019-03-23] MEDS ORDERED: PT OWN MED DRAWER 7, Y5N ONE (10:07)
[2019-03-23] MEDS: POLYETHYLENE GLYCOL 3350 119 GM BTL PO SCH ×2 (10:08→21:20)
[2019-03-23] MEDS: FLUDROCORTISONE ACETATE 0.1 MG TABLET (FP) PO SCH (10:08)
--- NOTE | 2019-03-23 10:33 | PN ---
Progress Note (short form) - Note Progress Note: PULMONARY Still some shortness of breath. left chest tube removed. CXR still with significant effusion on right. Vital Signs Period Temp Pulse Resp BP Sys/Tenorio Pulse Ox Last 24 Hr 97.3 F-97.6 F 80-87 20-20 95-105/53-65 Gen: mildly tachypneic at rest Heart: RRR Lung: decreased breath sounds at the bases Abd: soft, nontender Ext: no edema CBC, BMP 03/23/19 07:57 03/23/19 07:57 Active Medications Acetaminophen (Tylenol -) 650 mg PO Q6H PRN PRN Reason: PAIN Last Admin: 03/21/19 16:53 Dose: 650 mg Albuterol/Ipratropium (Duoneb -) 1 amp NEB RQID [facility] Last Admin: 03/23/19 07:25 Dose: 1 amp Apixaban (Eliquis -) 2.5 mg PO BID [facility] Last Admin: 03/23/19 09:58 Dose: 2.5 mg Carvedilol (Coreg -) 6.25 mg PO BID [facility] Last Admin: 03/22/19 21:53 Dose: Not Given Fludrocortisone Acetate (Florinef -) 0.1 mg PO DAILY [facility] Last Admin: 03/23/19 10:08 Dose: 0.1 mg Furosemide (Lasix Injection -) 20 mg IVPUSH DAILY [facility] Last Admin: 03/22/19 09:50 Dose: Not Given Latanoprost (Xalatan 0.005% Eye Drops -) 1 drop OU HS [facility] Last Admin: 03/22/19 22:26 Dose: Not Given Levothyroxine Sodium (Synthroid -) 88 mcg PO DAILY@0700 [facility] Last Admin: 03/23/19 07:28 Dose: 88 mcg Midodrine (Proamatine -) 10 mg PO TID-MID [facility] Last Admin: 03/23/19 10:01 Dose: 10 mg Pantoprazole Sodium (Protonix -) 40 mg PO BID [facility] Last Admin: 03/23/19 09:58 Dose: 40 mg Polyethylene Glycol (Miralax (For Daily Use) -) 17 gm PO BID [facility] Last Admin: 03/23/19 10:08 Dose: 17 grams A/P Acute Hypoxic Respiratory Failure improving Acute on Chronic Diastolic Heart Failure Volume Overload Pleural Effusions s/p Left Pigtail Catheter placement GI Bleed Acute Blood Loss Anemia Acute Kidney Injury Anemia/Thrombocytopenia h/o Colon Ca Atrial Fibrillation COPD Hypothyroidism HTN - continue lasix - monitor urine output, creatinine - monitor H/H - protonix - discussed right sided thoracentesis and pt agreeable but would like me to do it rather than radiology - hold anticoagulation, plan for bedside thoracentesis tomorrow
[2019-03-23] MEDS: FUROSEMIDE 40 MG/4 ML INJECTABLE VIAL IVPUSH SCH (10:40)
[2019-03-23] MEDS: CARVEDILOL 6.25 MG TABLET (FP) PO SCH ×2 (10:41→21:20)
--- NOTE | 2019-03-23 13:52 | PN ---
Physical Exam: SUBJECTIVE: Patient seen and examined. She reports breathing is the same as yesterday. She also has a cough that is non-productive and epigastric pain. OBJECTIVE: Vital Signs Period Temp Pulse Resp BP Sys/Tenorio Pulse Ox Last 24 Hr 97.3 F-97.6 F 80-87 20-20 95-105/53-65 GENERAL: The patient is awake, alert, and fully oriented, not in distress HEAD: Normal with no signs of trauma. EYES: PERRL, extraocular movements intact, anicteric sclera, conjunctiva clear. ENT: Ears normal, nares patent, moist mucous membranes. NECK: Trachea midline, full range of motion LUNGS: Left lung CTA, right lung decreased breath sounds HEART: Regular rate and irregular rhythm, no murmur ABDOMEN: Soft, tender to palpation, nondistended, hyperactive bowel sounds, guarding EXTREMITIES: Warm, well-perfused, +1 edema b/l LE, dry skin on feet NEUROLOGICAL: Cranial nerves II through XII grossly intact. Normal speech. PSYCH: Normal mood, normal affect. SKIN: Warm, dry, normal turgor, no rashes or lesions noted, no erythema where chest tube was placed Laboratory Results - last 24 hr 03/23/19 03/23/19 07:57 07:57 WBC 3.3 L RBC 3.02 L Hgb 8.7 L Hct 27.1 L MCV 89.7 MCH 28.9 MCHC 32.2 RDW 20.0 H Plt Count 135 D MPV 8.1 Sodium 136 Potassium 4.4 Chloride 101 Carbon Dioxide 28 Anion Gap 7 L BUN 31.0 H Creatinine 1.2 Est GFR (CKD-EPI)AfAm 47.72 Est GFR (CKD-EPI)NonAf 41.18 Random Glucose 76 Calcium 8.5 Phosphorus 3.6 Magnesium 2.0 Total Bilirubin 1.0 AST 9 L ALT 6 L Alkaline Phosphatase 62 Total Protein 5.7 L Albumin 2.6 L Active Medications Generic Name Dose Route Start Last Admin Trade Name Freq PRN Reason Stop Dose Admin Acetaminophen 650 mg 03/21/19 15:41 03/21/19 16:53 Tylenol - PO 650 mg Q6H PRN Administration PAIN Albuterol/Ipratropium 1 amp 03/18/19 08:00 03/23/19 11:26 Duoneb - NEB Not Given RQID LUKE Apixaban 2.5 mg 03/17/19 22:00 03/23/19 09:58 Eliquis - PO 2.5 mg BID LUKE Administration Carvedilol 6.25 mg 03/18/19 10:00 03/23/19 10:41 Coreg - PO Not Given BID LUKE Fludrocortisone Acetate 0.1 mg 03/19/19 13:00 03/23/19 10:08 Florinef - PO 0.1 mg DAILY [facility] Administration Furosemide 20 mg 03/19/19 10:52 03/23/19 10:40 Lasix Injection - IVPUSH 20 mg DAILY [facility] Administration Latanoprost 1 drop 03/18/19 22:00 03/22/19 22:26 Xalatan 0.005% Eye Drops - OU Not Given HS LUKE Levothyroxine Sodium 88 mcg 03/18/19 07:58 03/23/19 07:28 Synthroid - PO 88 mcg DAILY@0700 [facility] Administration Midodrine 10 mg 03/18/19 10:00 03/23/19 10:01 Proamatine - PO 10 mg TID-MID [facility] Administration Pantoprazole Sodium 40 mg 03/18/19 10:00 03/23/19 09:58 Protonix - PO 40 mg BID [facility] Administration Polyethylene Glycol 17 gm 03/18/19 10:00 03/23/19 10:08 Miralax (For Daily Use) - PO 17 grams BID [facility]KE Administration ASSESSMENT/PLAN: Ms. Leiva is an 83y/o female with afib (on Eliquis), HTN, COPD, NSTEMI s/p stent, CAD, HFpEF (EF55% 11/2017), and colon cancer who presents with weakness x 1 week. Pt was found to be hypotensive and anemic (5.5). Pt became hypotensive and hypoxic during EGD but improved with epi and ambu-bagging. #acute hypoxic respiratory failure 2/2 b/l pleural effusions, improved #HFpEF -left chest tube removed yesterday -duo-neb -Lasix 20mg IV daily -cards following -pulm following- plan for right side thoracentesis tomorrow #hypotension -midodrine 10mg TID -fludrocortisone 0.1mg daily -PT #afib -carvedilol 6.25mg BID -Eliquis, holding for chest tube placement tomorrow #AMANDA, resolved Cr stable -Lasix 20mg IV -monitor for changes given started Lasix #normocytic anemia 2/2 resolving duodenitis and possible small ulcer, s/p transfusion -monitor labs -PO protonix 40mg BID #glaucoma -latanoprost #HTN -monitor pressure -cavedilol 12.5mg BID as tolerated #hypothyroidism -Synthroid #hypomagnesemia, resolved DVT Ppx Eliquis- hold tonight for procedure tomorrow SCDs FEN no standing fluids monitor labs sodium controlled diet dispo med/surg, d/c after placement determined FULL CODE Visit type - Emergency Visit Emergency Visit: Yes ED Registration Date: 03/12/19 Care time: The patient presented to the Emergency Department on the above date and was hospitalized for further evaluation of their emergent condition. - New Patient This patient is new to me today: No - Critical Care Critical Care patient: No - Discharge Referral Referred to [facility] Med P.C.: No ATTENDING PHYSICIAN STATEMENT I saw and evaluated the patient. I reviewed the resident's note and discussed the case with the resident. I agree with the resident's findings and plan as documented. SUBJECTIVE: OBJECTIVE: ASSESSMENT AND PLAN:
--- NOTE | 2019-03-23 15:00 | PN ---
Progress Note, Physician History of Present Illness: Patient is an 83 y/o Female with a PMhx of atrial fibrillation (on Eliquis), HTN, COPD, NSTEMI s/p stent placement, CAD, HFpEF (EF55% 11/2017), and colon cancer who presented to ED.for having generalized weakness x 1 week. Patient stated that she noticed dark, tarry stools. Patient lives by herself and is very active. while in Ed. was found to have low blood pressure and positive for tarry stool, with shortness of breath. - Current Medication List Current Medications: Active Medications Acetaminophen (Tylenol -) 650 mg PO Q6H PRN PRN Reason: PAIN Last Admin: 03/21/19 16:53 Dose: 650 mg Albuterol/Ipratropium (Duoneb -) 1 amp NEB RQID [facility] Last Admin: 03/23/19 11:26 Dose: Not Given Apixaban (Eliquis -) 2.5 mg PO BID [facility] Last Admin: 03/23/19 09:58 Dose: 2.5 mg Carvedilol (Coreg -) 6.25 mg PO BID [facility] Last Admin: 03/23/19 10:41 Dose: Not Given Fludrocortisone Acetate (Florinef -) 0.1 mg PO DAILY [facility] Last Admin: 03/23/19 10:08 Dose: 0.1 mg Furosemide (Lasix Injection -) 20 mg IVPUSH DAILY [facility] Last Admin: 03/23/19 10:40 Dose: 20 mg Latanoprost (Xalatan 0.005% Eye Drops -) 1 drop OU HS [facility] Last Admin: 03/22/19 22:26 Dose: Not Given Levothyroxine Sodium (Synthroid -) 88 mcg PO DAILY@0700 [facility] Last Admin: 03/23/19 07:28 Dose: 88 mcg Midodrine (Proamatine -) 10 mg PO TID-MID [facility] Last Admin: 03/23/19 10:01 Dose: 10 mg Pantoprazole Sodium (Protonix -) 40 mg PO BID [facility] Last Admin: 03/23/19 09:58 Dose: 40 mg Polyethylene Glycol (Miralax (For Daily Use) -) 17 gm PO BID [facility] Last Admin: 03/23/19 10:08 Dose: 17 grams - Objective Vital Signs: Vital Signs Temperature 97.5 F L 03/23/19 05:00 Pulse Rate 80 03/23/19 05:00 Respiratory Rate 20 03/23/19 05:00 Blood Pressure 95/56 L 03/23/19 05:00 O2 Sat by Pulse Oximetry (%) 91 L 03/21/19 21:00 Eyes: Yes: WNL, Conjunctiva Clear, EOM Intact HENT: Yes: WNL, Atraumatic, Normocephalic Neck: Yes: WNL, Supple, Trachea Midline Cardiovascular: Yes: WNL, Regular Rate and Rhythm Respiratory: Yes: WNL, Regular, CTA Bilaterally Gastrointestinal: Yes: WNL, Normal Bowel Sounds Genitourinary: Yes: WNL Musculoskeletal: Yes: WNL Extremities: Yes: WNL Edema: No Integumentary: Yes: WNL Neurological: Yes: WNL, Alert, Oriented ...Motor Strength: WNL Psychiatric: Yes: WNL Labs: CBC, BMP 03/23/19 07:57 03/23/19 07:57 INR, PTT INR 2.17 (0.83-1.09) H 03/13/19 06:30 Problem List - Problems (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 - CONGENITAL MALFORMATION OF AORTA UNSPECIFIED (2) Colon adenoma Code(s): D12.6 - BENIGN NEOPLASM OF COLON, UNSPECIFIED (3) GI bleed Code(s): K92.2 - GASTROINTESTINAL HEMORRHAGE, UNSPECIFIED (4) Gallstones Code(s): K80.20 - CALCULUS OF GALLBLADDER W/O CHOLECYSTITIS W/O OBSTRUCTION (5) Gastrointestinal hemorrhage with melena Code(s): K92.1 - MELENA (6) Hiatal hernia Code(s): K44.9 - DIAPHRAGMATIC HERNIA WITHOUT OBSTRUCTION OR GANGRENE (7) Hypothyroid Code(s): E03.9 - HYPOTHYROIDISM, UNSPECIFIED (8) AMANDA (acute kidney injury) Code(s): N17.9 - ACUTE KIDNEY FAILURE, UNSPECIFIED (9) ASHD (arteriosclerotic heart disease) Code(s): I25.10 - ATHSCL HEART DISEASE OF [place] CORONARY ARTERY W/O ANG PCTRS (10) Acute on chronic systolic (congestive) heart failure Code(s): I50.23 - ACUTE ON CHRONIC SYSTOLIC (CONGESTIVE) HEART FAILURE (11) Acute on chronic systolic and diastolic heart failure, NYHA class 3 Code(s): I50.43 - ACUTE ON CHRONIC COMBINED SYSTOLIC AND DIASTOLIC HRT FAIL (12) Ankle pain, left Code(s): M25.572 - PAIN IN LEFT ANKLE AND JOINTS OF LEFT FOOT (13) Anxiety Code(s): F41.9 - ANXIETY DISORDER, UNSPECIFIED (14) Breast pain in female Code(s): N64.4 - MASTODYNIA (15) CHF (congestive heart failure) Code(s): I50.9 - HEART FAILURE, UNSPECIFIED Qualifiers: Heart failure type: unspecified Heart failure chronicity: chronic Qualified Code(s): I50.9 - Heart failure, unspecified (16) COPD (chronic obstructive pulmonary disease) Code(s): J44.9 - CHRONIC OBSTRUCTIVE PULMONARY DISEASE, UNSPECIFIED (17) COPD exacerbation Code(s): J44.1 - CHRONIC OBSTRUCTIVE PULMONARY DISEASE W (ACUTE) EXACERBATION (18) COPD mixed type Code(s): J44.9 - CHRONIC OBSTRUCTIVE PULMONARY DISEASE, UNSPECIFIED (19) Chest pain Code(s): R07.9 - CHEST PAIN, UNSPECIFIED Qualifiers: Chest pain type: unspecified Qualified Code(s): R07.9 - Chest pain, unspecified (20) Colon cancer Code(s): C18.9 - MALIGNANT NEOPLASM OF COLON, UNSPECIFIED (21) Community acquired pneumonia Code(s): J18.9 - PNEUMONIA, UNSPECIFIED ORGANISM (22) Contusion of rib on right side Code(s): S20.211A - CONTUSION OF RIGHT FRONT WALL OF THORAX, INITIAL ENCOUNTER (23) DVT prophylaxis Code(s): EWC2936 - (24) Diverticulosis Code(s): K57.90 - DVRTCLOS OF INTEST, PART UNSP, W/O PERF OR ABSCESS W/O BLEED (25) Elevated glucose Code(s): R73.09 - OTHER ABNORMAL GLUCOSE (26) Elevated lactic acid level Code(s): E87.2 - ACIDOSIS (27) Elevated troponin Code(s): R79.89 - OTHER SPECIFIED ABNORMAL FINDINGS OF BLOOD CHEMISTRY (28) Elevated troponin I level Code(s): R79.89 - OTHER SPECIFIED ABNORMAL FINDINGS OF BLOOD CHEMISTRY (29) [place] cardiac risk >20% in next 10 years Code(s): Z91.89 - OTH PERSONAL RISK FACTORS, NOT ELSEWHERE CLASSIFIED (30) Hyponatremia Code(s): E87.1 - HYPO-OSMOLALITY AND HYPONATREMIA (31) Hypotension Code(s): I95.9 - HYPOTENSION, UNSPECIFIED Qualifiers: Hypotension type: unspecified hypotension type Qualified Code(s): I95.9 - Hypotension, unspecified (32) Hypoxia Code(s): R09.02 - HYPOXEMIA (33) Lactic acid acidosis Code(s): E87.2 - ACIDOSIS (34) Microcytic hypochromic anemia Code(s): D50.9 - IRON DEFICIENCY ANEMIA, UNSPECIFIED (35) Moderate to severe pulmonary hypertension Code(s): I27.2 - OTHER SECONDARY PULMONARY HYPERTENSION * DO NOT USE * (36) Pericardial effusion Code(s): I31.3 - PERICARDIAL EFFUSION (NONINFLAMMATORY) (37) Periorbital hematoma of left eye Code(s): H05.232 - HEMORRHAGE OF LEFT ORBIT (38) Peripheral edema Code(s): R60.9 - EDEMA, UNSPECIFIED (39) Plantar fasciitis Code(s): M72.2 - PLANTAR FASCIAL FIBROMATOSIS (40) Pleural effusion Code(s): J90 - PLEURAL EFFUSION, NOT ELSEWHERE CLASSIFIED (41) Pneumonia Code(s): J18.9 - PNEUMONIA, UNSPECIFIED ORGANISM (42) Renal dysfunction Code(s): N28.9 - DISORDER OF KIDNEY AND URETER, UNSPECIFIED (43) Respiratory distress Code(s): R06.00 - DYSPNEA, UNSPECIFIED (44) Respiratory failure Code(s): J96.90 - RESPIRATORY FAILURE, UNSP, UNSP W HYPOXIA OR HYPERCAPNIA (45) Sepsis Code(s): A41.9 - SEPSIS, UNSPECIFIED ORGANISM (46) Sepsis due to pneumonia Code(s): J18.9 - PNEUMONIA, UNSPECIFIED ORGANISM; A41.9 - SEPSIS, UNSPECIFIED ORGANISM (47) Severe mitral regurgitation Code(s): I34.0 - NONRHEUMATIC MITRAL (VALVE) INSUFFICIENCY (48) Anemia Code(s): D64.9 - ANEMIA, UNSPECIFIED Qualifiers: Anemia type: unspecified type Qualified Code(s): D64.9 - Anemia, unspecified (49) Atrial fibrillation Code(s): I48.91 - UNSPECIFIED ATRIAL FIBRILLATION Qualifiers: Atrial fibrillation type: unspecified Qualified Code(s): I48.91 - Unspecified atrial fibrillation (50) Hypertension Code(s): I10 - ESSENTIAL (PRIMARY) HYPERTENSION (51) NSTEMI (non-ST elevated myocardial infarction) Code(s): I21.4 - NON-ST ELEVATION (NSTEMI) MYOCARDIAL INFARCTION Assessment/Plan Assessment/Plan 1. Acute Hypoxic Respiratory Failure post left chest tube 2. Acute on Chronic Diastolic Heart Failure (EF55% 11/2017) 3. Post endoscopy hypotension requiring pressors 4. GI Bleed with Acute Blood Loss Anemia and thrombocytopenia 5. Acute on chronic Kidney Injury at baseline 6. h/o Colon Ca 7. Atrial Fibrillation on eliquis 8. COPD 9. Hypothyroidism 10. HTN 11. CAD NSTEMI s/p stent placement 1. IV diuresis with monitor diuretic response, renal fxn and electrolytes 2. Continue Eliquis 2.5 bid, carvedilol 6.25 bid, midodrine 10 tid, fluorinef 0.1 qd 3. Monitor H/H, transfuse as needed, protonix
--- NOTE | 2019-03-23 16:21 | PN ---
Teaching Attending Note Name of Resident: Bernice Garcia ATTENDING PHYSICIAN STATEMENT I saw and evaluated the patient. I reviewed the resident's note and discussed the case with the resident. I agree with the resident's findings and plan as documented. SUBJECTIVE: No fever or chills. No SCHMID . had abd pain in am , but it resolved after a BM after receiving lasix IV she felt dizzy ( vertigo) for 4-5 min then resolved. OBJECTIVE: NAD, awake, pleasant, and cooperative CV; Irreg irreg. no MRG Lungs: decreased breath sounds on R base, good air entry on L side. a dry dressing on site of chest tube Ext: no edema on legs. A/P: 83 y/o lady with h/o COPD, CAD, s/p stents, CKD, diastolic CHF, hypothyroidism, UTI, &th rib Fx , Hiatal hernia, a fib , colon ca, s/p resection , ischemic colitis , who presented with upper GI bleed. 1- Upper GI bleed from duodenitis 2- Acute on chronic diastolic heart failure exacerbation 3- Pleural effusions 4- S/p L chest tube . Now removed 5- AMANDA on CKD 6- Hypotension 7-H/o A fib plan: - For placement of CT on R side tomorow - Holod eliquis today - Cont IV lasix - Cont midodrine and fludrocortisone due to persistent hypotension . - Cont to hold Imdur and continue decreased dose of coreg. I don't thinsk we will be able to resume Imdur at dc - Cont PPI - PT HLOC . Needs rehab at [place]. SW team aware
[2019-03-23] MEDS: LATANOPROST 0.005% OPHTH SOLN 2.5ML BOTTLE OU SCH (21:20)
[2019-03-24] MEDS: LEVOTHYROXINE NA 88 MCG TABLET (FP) PO SCH (06:18)
[2019-03-24] MEDS: ALBUTEROL SO4 2.5/IPRATROPIUM 0.5 INH SOL 3 ML VIAL.NEB. NEB SCH ×4 (08:00→20:09)
[2019-03-24 08:44] LABS: BLOOD UREA NITROGEN 29.7 mg/dL (7-18); CALCIUM 8.3 mg/dL (8.5-10.1); CREATININE 1.1 mg/dL (0.55-1.3); MAGNESIUM 2.1 mg/dL (1.8-2.4); PHOSPHOROUS 3.2 mg/dL (2.5-4.9); POTASSIUM 4.3 mmol/L (3.5-5.1)
--- NOTE | 2019-03-24 09:31 | PN ---
Teaching Attending Note Name of Resident: Bernice Garcia ATTENDING PHYSICIAN STATEMENT I saw and evaluated the patient. I reviewed the resident's note and discussed the case with the resident. I agree with the resident's findings and plan as documented. SUBJECTIVE: Patient is feeling better, no acute distress. OBJECTIVE: Vital Signs Temperature 97.9 F 03/24/19 06:00 Pulse Rate 80 03/24/19 06:00 Respiratory Rate 20 03/24/19 06:00 Blood Pressure 92/54 L 03/24/19 06:00 O2 Sat by Pulse Oximetry (%) 97 03/23/19 20:22 GENERAL: The patient is awake, alert, and fully oriented, in mild distress. HEAD: Normal with no signs of trauma. EYES: PERRL, extraocular movements intact, sclera anicteric, conjunctiva clear. ENT: Ears normal, oropharynx clear without exudates, moist mucous membranes. NECK: Trachea midline, full range of motion, supple. LUNGS: decreased BS BL, decreased air entery bl , positive for rales , no wheezes, no crackles, no accessory muscle use. HEART: Irregularly-irregular , rate of 80 , S1, S2 positive, ALEJANDRO 3/6 lsb, NO rub or gallop. ABDOMEN: Soft, nt,nd, normoactive bowel sounds, no guarding, no rebound, no hepatosplenomegaly, no masses. EXTREMITIES: 2+ pulses, warm, well-perfused, no edema. NEUROLOGICAL: Cranial nerves II through XII grossly intact. Normal speech, gait not observed. PSYCH: Normal mood, normal affect. SKIN: Warm, dry, normal turgor, no rashes or lesions noted CBCD WBC 3.3 K/mm3 (4.0-10.0) L 03/23/19 07:57 RBC 3.02 M/mm3 (3.60-5.2) L 03/23/19 07:57 Hgb 8.7 GM/dL (10.7-15.3) L 03/23/19 07:57 Hct 27.1 % (32.4-45.2) L 03/23/19 07:57 MCV 89.7 fl (80-96) 03/23/19 07:57 MCHC 32.2 g/dl (32.0-36.0) 03/23/19 07:57 RDW 20.0 % (11.6-15.6) H 03/23/19 07:57 Plt Count 135 K/MM3 (134-434) D 03/23/19 07:57 MPV 8.1 fl (7.5-11.1) 03/23/19 07:57 CMP Sodium 136 mmol/L (136-145) 03/24/19 06:24 Potassium 4.3 mmol/L (3.5-5.1) 03/24/19 06:24 Chloride 101 mmol/L (98-107) 03/24/19 06:24 Carbon Dioxide 29 mmol/L (21-32) 03/24/19 06:24 Anion Gap 7 MMOL/L (8-16) L 03/24/19 06:24 BUN 29.7 mg/dL (7-18) H 03/24/19 06:24 Creatinine 1.1 mg/dL (0.55-1.3) 03/24/19 06:24 Random Glucose 75 mg/dL (74-106) 03/24/19 06:24 Calcium 8.3 mg/dL (8.5-10.1) L 03/24/19 06:24 Total Bilirubin 1.0 mg/dL (0.2-1) 03/23/19 07:57 AST 9 U/L (15-37) L 03/23/19 07:57 ALT 6 U/L (13-61) L 03/23/19 07:57 Alkaline Phosphatase 62 U/L (45-117) 03/23/19 07:57 Total Protein 5.7 g/dl (6.4-8.2) L 03/23/19 07:57 Albumin 2.6 g/dl (3.4-5.0) L 03/23/19 07:57 CARDIAC ENZYMES Creatine Kinase 45 U/L (26-192) 03/12/19 14:30 Troponin I 0.02 ng/ml (0.00-0.05) 03/12/19 14:30 Current Medications Generic Name Dose Route Start Last Admin Trade Name Freq PRN Reason Stop Dose Admin Acetaminophen 650 mg 03/21/19 15:41 03/21/19 16:53 Tylenol - PO 650 mg Q6H PRN Administration PAIN Albuterol/Ipratropium 1 amp 03/18/19 08:00 03/24/19 08:00 Duoneb - NEB 1 amp RQID [facility] Administration Apixaban 2.5 mg 03/17/19 22:00 03/23/19 09:58 Eliquis - PO 2.5 mg BID [facility] Administration Carvedilol 6.25 mg 03/18/19 10:00 03/23/19 21:20 Coreg - PO 6.25 mg BID [facility] Administration Fludrocortisone Acetate 0.1 mg 03/19/19 13:00 03/23/19 10:08 Florinef - PO 0.1 mg DAILY [facility] Administration Furosemide 20 mg 03/19/19 10:52 03/23/19 10:40 Lasix Injection - IVPUSH 20 mg DAILY [facility] Administration Latanoprost 1 drop 03/18/19 22:00 03/23/19 21:20 Xalatan 0.005% Eye Drops - OU Not Given [facility] Levothyroxine Sodium 88 mcg 03/18/19 07:58 03/24/19 06:18 Synthroid - PO 88 mcg DAILY@0700 [facility] Administration Midodrine 10 mg 03/18/19 10:00 03/23/19 18:35 Proamatine - PO 10 mg TID-MID [facility] Administration Pantoprazole Sodium 40 mg 03/18/19 10:00 03/23/19 21:20 Protonix - PO 40 mg BID [facility] Administration Polyethylene Glycol 17 gm 03/18/19 10:00 03/23/19 21:20 Miralax (For Daily Use) - PO Not Given BID [facility] Home Medications Medication Instructions Recorded Atorvastatin Ca [Lipitor] 40 mg PO HS 10/19/17 Carvedilol [Coreg] 12.5 mg PO BID 10/19/17 Latanoprost 0.005% Eye Drops 1 drop OU HS 10/19/17 [Xalatan 0.005% Eye Drops -] Levothyroxine Sodium [Synthroid] 100 mcg PO DAILY 10/19/17 Isosorbide Mononitrate [Isosorbide 30 mg PO DAILY 11/25/17 Mononitrate ER] Apixaban [Eliquis -] 2.5 mg PO BID #60 tablet 12/04/17 Furosemide [Lasix -] 80 mg PO BID@0600,1400 03/12/19 Levothyroxine [Synthroid -] 88 mcg PO DAILY #30 tablet 03/12/19 Lisinopril 10 mg PO DAILY 03/12/19 CXR: extensive pulmonary pleural effusions with large heart and dense left base persists. ASSESSMENT AND PLAN: Patient is an 82yo Female with PMHx D.CHF, Afib on NOac , colon ca s/p resection, COPD, CAD s/p stent presented to the ER with acute GIB # B/L pleural effusions s/p pigtail , patient is for thoracocentesis as per pulm. today # S/p colonoscopy: due to Upper GI bleed from duodenitis #s/p UGIB : s/p Protonix drip , now on po protinix , s/p transfusions, s/p FFp, Prbc,GI , s/p platelet transfusion. #s/p ARF prerenal due to Acute GIB improved now # Acute on CHronic diastolic CHF,s/p transfusions, cardio dr escudero continue Lasix IV # Hx of afib: dc Eliquis since having acute GIB , hold bp meds for now, since hypotensive # Postural hypotension: Cont midodrine and fludrocortisone due to persistent hypotension . # hx of Colon ca s/p resection # hypothyroid- continue levothyroxine # CAD s/p stent- not on any antiplatelet due to GI bleeding. # hx of 7th rib fracture # hx of UTI Klebsiella Pneumoniae GI px: protonix DVT px: Scds On hold Imdur, decreased dose of coreg. will hold on Imdur for now - Cont PPI - PT Needs rehab at [place]. SW team aware
[2019-03-24] MEDS: MIDODRINE HCL 5 MG TABLET PO SCH ×3 (09:59→17:19)
[2019-03-24] MEDS: PANTOPRAZOLE 40 MG TABLET (FP) PO SCH ×2 (09:59→21:03)
[2019-03-24] MEDS: CARVEDILOL 6.25 MG TABLET (FP) PO SCH ×2 (10:00→21:03)
[2019-03-24] MEDS: FLUDROCORTISONE ACETATE 0.1 MG TABLET (FP) PO SCH (10:01)
[2019-03-24] MEDS: POLYETHYLENE GLYCOL 3350 119 GM BTL PO SCH ×2 (10:02→21:04)
[2019-03-24] MEDS: FUROSEMIDE 40 MG/4 ML INJECTABLE VIAL IVPUSH SCH (10:39)
--- NOTE | 2019-03-24 11:40 | PN ---
Physical Exam: SUBJECTIVE: Patient seen and examined. She reports breathing is the same as yesterday. She denies chest pain, abdominal pain, nausea, or vomiting. OBJECTIVE: Vital Signs Period Temp Pulse Resp BP Sys/Tenorio Pulse Ox Last 24 Hr 97.2 F-98.6 F 80-99 20-20 92-99/54-69 96-97 GENERAL: The patient is awake, alert, and fully oriented, not in distress HEAD: Normal with no signs of trauma. EYES: PERRL, extraocular movements intact, anicteric sclera, conjunctiva clear. ENT: Ears normal, nares patent, moist mucous membranes. NECK: Trachea midline, full range of motion LUNGS: Left lung CTA, right lung decreased breath sounds with expiratory wheeze HEART: Regular rate and irregular rhythm, no murmur ABDOMEN: Soft, non-tender to palpation, nondistended, normoactive bowel sounds, no guarding EXTREMITIES: Warm, well-perfused, +1 edema b/l LE, dry skin on feet NEUROLOGICAL: Cranial nerves II through XII grossly intact. Normal speech. PSYCH: Normal mood, normal affect. SKIN: Warm, dry, normal turgor, no rashes or lesions noted Laboratory Results - last 24 hr 03/24/19 06:24 Sodium 136 Potassium 4.3 Chloride 101 Carbon Dioxide 29 Anion Gap 7 L BUN 29.7 H Creatinine 1.1 Est GFR (CKD-EPI)AfAm 52.65 Est GFR (CKD-EPI)NonAf 45.42 Random Glucose 75 Calcium 8.3 L Phosphorus 3.2 Magnesium 2.1 Active Medications Generic Name Dose Route Start Last Admin Trade Name Freq PRN Reason Stop Dose Admin Acetaminophen 650 mg 03/21/19 15:41 03/21/19 16:53 Tylenol - PO 650 mg Q6H PRN Administration PAIN Albuterol/Ipratropium 1 amp 03/18/19 08:00 03/24/19 08:00 Duoneb - NEB 1 amp RQID [facility] Administration Apixaban 2.5 mg 03/17/19 22:00 03/23/19 09:58 Eliquis - PO 2.5 mg BID [facility] Administration Carvedilol 6.25 mg 03/18/19 10:00 03/24/19 10:00 Coreg - PO Not Given BID [facility] Fludrocortisone Acetate 0.1 mg 03/19/19 13:00 03/24/19 10:01 Florinef - PO 0.1 mg DAILY [facility] Administration Furosemide 20 mg 03/19/19 10:52 03/24/19 10:39 Lasix Injection - IVPUSH Not Given DAILY [facility] Latanoprost 1 drop 03/18/19 22:00 03/23/19 21:20 Xalatan 0.005% Eye Drops - OU Not Given HS [facility] Levothyroxine Sodium 88 mcg 03/18/19 07:58 03/24/19 06:18 Synthroid - PO 88 mcg DAILY@0700 [facility] Administration Midodrine 10 mg 03/18/19 10:00 03/24/19 09:59 Proamatine - PO 10 mg TID-MID [facility] Administration Pantoprazole Sodium 40 mg 03/18/19 10:00 03/24/19 09:59 Protonix - PO 40 mg BID [facility] Administration Polyethylene Glycol 17 gm 03/18/19 10:00 03/24/19 10:02 Miralax (For Daily Use) - PO Not Given BID [facility] ASSESSMENT/PLAN: Ms. Leiva is an 83y/o female with afib (on Eliquis), HTN, COPD, NSTEMI s/p stent, CAD, HFpEF (EF55% 11/2017), and colon cancer who presents with weakness x 1 week. Pt was found to be hypotensive and anemic (5.5). Pt became hypotensive and hypoxic during EGD but improved with epi and ambu-bagging. #acute hypoxic respiratory failure 2/2 b/l pleural effusions, improved #HFpEF -duo-neb -Lasix 20mg IV daily -cards following- switch to PO lasix tomorrow -pulm following- plan for right side thoracentesis #hypotension -midodrine 10mg TID -fludrocortisone 0.1mg daily -PT #afib -carvedilol 6.25mg BID -Eliquis, holding for chest tube placement #AMANDA, resolved Cr stable -Lasix 20mg IV -monitor for changes given started Lasix #normocytic anemia 2/2 resolving duodenitis and possible small ulcer, s/p transfusion -monitor labs -PO protonix 40mg BID #glaucoma -latanoprost #HTN -monitor pressure -cavedilol 12.5mg BID as tolerated #hypothyroidism -Synthroid #hypomagnesemia, resolved DVT Ppx Eliquis- held for procedure SCDs FEN no standing fluids monitor labs sodium controlled diet dispo med/surg, d/c after placement determined and stabilization of effusion FULL CODE Visit type - Emergency Visit Emergency Visit: Yes ED Registration Date: 03/12/19 Care time: The patient presented to the Emergency Department on the above date and was hospitalized for further evaluation of their emergent condition. - New Patient This patient is new to me today: No - Critical Care Critical Care patient: No - Discharge Referral Referred to [facility] Med P.C.: No ATTENDING PHYSICIAN STATEMENT I saw and evaluated the patient. I reviewed the resident's note and discussed the case with the resident. I agree with the resident's findings and plan as documented. SUBJECTIVE: OBJECTIVE: ASSESSMENT AND PLAN:
--- NOTE | 2019-03-24 12:27 | PN ---
Progress Note, Physician History of Present Illness: Patient is an 83 y/o Female with a PMhx of atrial fibrillation (on Eliquis), HTN, COPD, NSTEMI s/p stent placement, CAD, HFpEF (EF55% 11/2017), and colon cancer who presented to ED.for having generalized weakness x 1 week. Patient stated that she noticed dark, tarry stools. Patient lives by herself and is very active. while in Ed. was found to have low blood pressure and positive for tarry stool, with shortness of breath. - Current Medication List Current Medications: Active Medications Acetaminophen (Tylenol -) 650 mg PO Q6H PRN PRN Reason: PAIN Last Admin: 03/21/19 16:53 Dose: 650 mg Albuterol/Ipratropium (Duoneb -) 1 amp NEB RQID [facility] Last Admin: 03/24/19 12:00 Dose: 1 amp Apixaban (Eliquis -) 2.5 mg PO BID [facility] Last Admin: 03/23/19 09:58 Dose: 2.5 mg Carvedilol (Coreg -) 6.25 mg PO BID [facility] Last Admin: 03/24/19 10:00 Dose: Not Given Fludrocortisone Acetate (Florinef -) 0.1 mg PO DAILY [facility] Last Admin: 03/24/19 10:01 Dose: 0.1 mg Furosemide (Lasix Injection -) 20 mg IVPUSH DAILY [facility] Last Admin: 03/24/19 10:39 Dose: Not Given Latanoprost (Xalatan 0.005% Eye Drops -) 1 drop OU HS [facility] Last Admin: 03/23/19 21:20 Dose: Not Given Levothyroxine Sodium (Synthroid -) 88 mcg PO DAILY@0700 [facility] Last Admin: 03/24/19 06:18 Dose: 88 mcg Midodrine (Proamatine -) 10 mg PO TID-MID [facility] Last Admin: 03/24/19 09:59 Dose: 10 mg Pantoprazole Sodium (Protonix -) 40 mg PO BID [facility] Last Admin: 03/24/19 09:59 Dose: 40 mg Polyethylene Glycol (Miralax (For Daily Use) -) 17 gm PO BID [facility] Last Admin: 03/24/19 10:02 Dose: Not Given - Objective Vital Signs: Vital Signs Temperature 98.6 F 03/24/19 10:00 Pulse Rate 99 H 03/24/19 10:00 Respiratory Rate 20 03/24/19 10:00 Blood Pressure 96/69 03/24/19 10:00 O2 Sat by Pulse Oximetry (%) 96 03/24/19 09:00 Eyes: Yes: WNL, Conjunctiva Clear, EOM Intact HENT: Yes: WNL, Atraumatic, Normocephalic Neck: Yes: WNL, Supple, Trachea Midline Cardiovascular: Yes: WNL, Regular Rate and Rhythm Respiratory: Yes: WNL, Regular, CTA Bilaterally Gastrointestinal: Yes: WNL, Normal Bowel Sounds Genitourinary: Yes: WNL Musculoskeletal: Yes: WNL Extremities: Yes: WNL Edema: No Integumentary: Yes: WNL Neurological: Yes: WNL, Alert, Oriented ...Motor Strength: WNL Psychiatric: Yes: WNL Labs: CBC, BMP 03/23/19 07:57 03/24/19 06:24 INR, PTT INR 2.17 (0.83-1.09) H 03/13/19 06:30 Problem List - Problems (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 - CONGENITAL MALFORMATION OF AORTA UNSPECIFIED (2) Colon adenoma Code(s): D12.6 - BENIGN NEOPLASM OF COLON, UNSPECIFIED (3) GI bleed Code(s): K92.2 - GASTROINTESTINAL HEMORRHAGE, UNSPECIFIED (4) Gallstones Code(s): K80.20 - CALCULUS OF GALLBLADDER W/O CHOLECYSTITIS W/O OBSTRUCTION (5) Gastrointestinal hemorrhage with melena Code(s): K92.1 - MELENA (6) Hiatal hernia Code(s): K44.9 - DIAPHRAGMATIC HERNIA WITHOUT OBSTRUCTION OR GANGRENE (7) Hypothyroid Code(s): E03.9 - HYPOTHYROIDISM, UNSPECIFIED (8) AMANDA (acute kidney injury) Code(s): N17.9 - ACUTE KIDNEY FAILURE, UNSPECIFIED (9) ASHD (arteriosclerotic heart disease) Code(s): I25.10 - ATHSCL HEART DISEASE OF [place] CORONARY ARTERY W/O ANG PCTRS (10) Acute on chronic systolic (congestive) heart failure Code(s): I50.23 - ACUTE ON CHRONIC SYSTOLIC (CONGESTIVE) HEART FAILURE (11) Acute on chronic systolic and diastolic heart failure, NYHA class 3 Code(s): I50.43 - ACUTE ON CHRONIC COMBINED SYSTOLIC AND DIASTOLIC HRT FAIL (12) Ankle pain, left Code(s): M25.572 - PAIN IN LEFT ANKLE AND JOINTS OF LEFT FOOT (13) Anxiety Code(s): F41.9 - ANXIETY DISORDER, UNSPECIFIED (14) Breast pain in female Code(s): N64.4 - MASTODYNIA (15) CHF (congestive heart failure) Code(s): I50.9 - HEART FAILURE, UNSPECIFIED Qualifiers: Heart failure type: unspecified Heart failure chronicity: chronic Qualified Code(s): I50.9 - Heart failure, unspecified (16) COPD (chronic obstructive pulmonary disease) Code(s): J44.9 - CHRONIC OBSTRUCTIVE PULMONARY DISEASE, UNSPECIFIED (17) COPD exacerbation Code(s): J44.1 - CHRONIC OBSTRUCTIVE PULMONARY DISEASE W (ACUTE) EXACERBATION (18) COPD mixed type Code(s): J44.9 - CHRONIC OBSTRUCTIVE PULMONARY DISEASE, UNSPECIFIED (19) Chest pain Code(s): R07.9 - CHEST PAIN, UNSPECIFIED Qualifiers: Chest pain type: unspecified Qualified Code(s): R07.9 - Chest pain, unspecified (20) Colon cancer Code(s): C18.9 - MALIGNANT NEOPLASM OF COLON, UNSPECIFIED (21) Community acquired pneumonia Code(s): J18.9 - PNEUMONIA, UNSPECIFIED ORGANISM (22) Contusion of rib on right side Code(s): S20.211A - CONTUSION OF RIGHT FRONT WALL OF THORAX, INITIAL ENCOUNTER (23) DVT prophylaxis Code(s): [id number] - (24) Diverticulosis Code(s): K57.90 - DVRTCLOS OF INTEST, PART UNSP, W/O PERF OR ABSCESS W/O BLEED (25) Elevated glucose Code(s): R73.09 - OTHER ABNORMAL GLUCOSE (26) Elevated lactic acid level Code(s): E87.2 - ACIDOSIS (27) Elevated troponin Code(s): R79.89 - OTHER SPECIFIED ABNORMAL FINDINGS OF BLOOD CHEMISTRY (28) Elevated troponin I level Code(s): R79.89 - OTHER SPECIFIED ABNORMAL FINDINGS OF BLOOD CHEMISTRY (29) [place] cardiac risk >20% in next 10 years Code(s): Z91.89 - OTH PERSONAL RISK FACTORS, NOT ELSEWHERE CLASSIFIED (30) Hyponatremia Code(s): E87.1 - HYPO-OSMOLALITY AND HYPONATREMIA (31) Hypotension Code(s): I95.9 - HYPOTENSION, UNSPECIFIED Qualifiers: Hypotension type: unspecified hypotension type Qualified Code(s): I95.9 - Hypotension, unspecified (32) Hypoxia Code(s): R09.02 - HYPOXEMIA (33) Lactic acid acidosis Code(s): E87.2 - ACIDOSIS (34) Microcytic hypochromic anemia Code(s): D50.9 - IRON DEFICIENCY ANEMIA, UNSPECIFIED (35) Moderate to severe pulmonary hypertension Code(s): I27.2 - OTHER SECONDARY PULMONARY HYPERTENSION * DO NOT USE * (36) Pericardial effusion Code(s): I31.3 - PERICARDIAL EFFUSION (NONINFLAMMATORY) (37) Periorbital hematoma of left eye Code(s): H05.232 - HEMORRHAGE OF LEFT ORBIT (38) Peripheral edema Code(s): R60.9 - EDEMA, UNSPECIFIED (39) Plantar fasciitis Code(s): M72.2 - PLANTAR FASCIAL FIBROMATOSIS (40) Pleural effusion Code(s): J90 - PLEURAL EFFUSION, NOT ELSEWHERE CLASSIFIED (41) Pneumonia Code(s): J18.9 - PNEUMONIA, UNSPECIFIED ORGANISM (42) Renal dysfunction Code(s): N28.9 - DISORDER OF KIDNEY AND URETER, UNSPECIFIED (43) Respiratory distress Code(s): R06.00 - DYSPNEA, UNSPECIFIED (44) Respiratory failure Code(s): J96.90 - RESPIRATORY FAILURE, UNSP, UNSP W HYPOXIA OR HYPERCAPNIA (45) Sepsis Code(s): A41.9 - SEPSIS, UNSPECIFIED ORGANISM (46) Sepsis due to pneumonia Code(s): J18.9 - PNEUMONIA, UNSPECIFIED ORGANISM; A41.9 - SEPSIS, UNSPECIFIED ORGANISM (47) Severe mitral regurgitation Code(s): I34.0 - NONRHEUMATIC MITRAL (VALVE) INSUFFICIENCY (48) Anemia Code(s): D64.9 - ANEMIA, UNSPECIFIED Qualifiers: Anemia type: unspecified type Qualified Code(s): D64.9 - Anemia, unspecified (49) Atrial fibrillation Code(s): I48.91 - UNSPECIFIED ATRIAL FIBRILLATION Qualifiers: Atrial fibrillation type: unspecified Qualified Code(s): I48.91 - Unspecified atrial fibrillation (50) Hypertension Code(s): I10 - ESSENTIAL (PRIMARY) HYPERTENSION (51) NSTEMI (non-ST elevated myocardial infarction) Code(s): I21.4 - NON-ST ELEVATION (NSTEMI) MYOCARDIAL INFARCTION Assessment/Plan Assessment/Plan 1. Acute Hypoxic Respiratory Failure post left chest tube 2. Acute on Chronic Diastolic Heart Failure (EF55% 11/2017) 3. Post endoscopy hypotension requiring pressors 4. GI Bleed with Acute Blood Loss Anemia and thrombocytopenia 5. Acute on chronic Kidney Injury at baseline 6. h/o Colon Ca 7. Atrial Fibrillation on eliquis 8. COPD 9. Hypothyroidism 10. HTN 11. CAD NSTEMI s/p stent placement 1. change IV diuresis to PO 2. Continue Eliquis 2.5 bid, carvedilol 6.25 bid, midodrine 10 tid, fluorinef 0.1 qd 3. Monitor H/H, transfuse as needed, protonix
--- NOTE | 2019-03-24 15:12 | PROC ---
Procedure Note Procedure: THORACENTESIS NOTE After discussing the risks and benefits of the procedure, informed consent was obtained. Area of pleural fluid identified with ultrasound. Under sterile conditions, 1% lidocaine infiltrated under skin. A 5 Fr catheter was inserted, approximately 800mL serous fluid was drained with a vacutainer bottle. Catheter was then removed, no immediate complications. CXR ordered. Cassius Ruvalcaba MD
--- NOTE | 2019-03-24 15:32 | PN ---
Progress Note (short form) - Note Progress Note: PULMONARY s/p right thoracentesis draining 800mL serous fluid. Post thoracentesis CXR showing improvement. Vital Signs Period Temp Pulse Resp BP Sys/Tenorio Pulse Ox Last 24 Hr 97.5 F-98.6 F 80-99 20-20 92-99/54-69 96-97 Gen: mildly tachypneic at rest Heart: RRR Lung: decreased breath sounds at the bases Abd: soft, nontender Ext: no edema CBC, BMP 03/23/19 07:57 03/24/19 06:24 Active Medications Acetaminophen (Tylenol -) 650 mg PO Q6H PRN PRN Reason: PAIN Last Admin: 03/21/19 16:53 Dose: 650 mg Albuterol/Ipratropium (Duoneb -) 1 amp NEB RQID [facility] Last Admin: 03/24/19 12:00 Dose: 1 amp Apixaban (Eliquis -) 2.5 mg PO BID [facility] Last Admin: 03/23/19 09:58 Dose: 2.5 mg Carvedilol (Coreg -) 6.25 mg PO BID [facility] Last Admin: 03/24/19 10:00 Dose: Not Given Fludrocortisone Acetate (Florinef -) 0.1 mg PO DAILY [facility] Last Admin: 03/24/19 10:01 Dose: 0.1 mg Furosemide (Lasix -) 20 mg PO DAILY [facility] Latanoprost (Xalatan 0.005% Eye Drops -) 1 drop OU HS [facility] Last Admin: 03/23/19 21:20 Dose: Not Given Levothyroxine Sodium (Synthroid -) 88 mcg PO DAILY@0700 [facility] Last Admin: 03/24/19 06:18 Dose: 88 mcg Midodrine (Proamatine -) 10 mg PO TID-MID [facility] Last Admin: 03/24/19 15:13 Dose: 10 mg Pantoprazole Sodium (Protonix -) 40 mg PO BID [facility] Last Admin: 03/24/19 09:59 Dose: 40 mg Polyethylene Glycol (Miralax (For Daily Use) -) 17 gm PO BID [facility] Last Admin: 03/24/19 10:02 Dose: Not Given A/P Acute Hypoxic Respiratory Failure improving Acute on Chronic Diastolic Heart Failure Volume Overload Pleural Effusions s/p Left Pigtail Catheter placement GI Bleed Acute Blood Loss Anemia Acute Kidney Injury Anemia/Thrombocytopenia h/o Colon Ca Atrial Fibrillation COPD Hypothyroidism HTN - f/u official CXR read - continue lasix - monitor urine output, creatinine - can resume anticoagulation this PM
[2019-03-24] MEDS: LATANOPROST 0.005% OPHTH SOLN 2.5ML BOTTLE OU SCH ×2 (21:04→21:21)
[2019-03-24] MEDS ORDERED: PT OWN MED DRAWER 7, Y5N ONE (21:09)
[2019-03-24] MEDS: APIXABAN 2.5 MG TABLET PO SCH (21:34)
[2019-03-25] MEDS: LEVOTHYROXINE NA 88 MCG TABLET (FP) PO SCH (06:41)
[2019-03-25 08:03] LABS: HEMATOCRIT 28.3 % (32.4-45.2); HEMOGLOBIN 9.1 GM/dL (10.7-15.3); MCH 28.7 pg (25.7-33.7); MCHC 32.2 g/dl (32.0-36.0); MEAN CELL VOLUME 89.1 fl (80-96); MEAN PLT VOLUME 7.9 fl (7.5-11.1); PLATELET COUNT 171 K/MM3 (134-434); RBC 3.17 M/mm3 (3.60-5.2); RDW 20.7 % (11.6-15.6); WHITE BLOOD COUNT 4.5 K/mm3 (4.0-10.0)
[2019-03-25 08:19] LABS: CALCIUM 8.7 mg/dL (8.5-10.1); CREATININE 1.1 mg/dL (0.55-1.3); POTASSIUM 4.3 mmol/L (3.5-5.1)
[2019-03-25] MEDS: ALBUTEROL SO4 2.5/IPRATROPIUM 0.5 INH SOL 3 ML VIAL.NEB. NEB SCH ×4 (08:24→21:05)
[2019-03-25] MEDS: CARVEDILOL 6.25 MG TABLET (FP) PO SCH ×2 (09:43→21:11)
[2019-03-25] MEDS: FUROSEMIDE 20 MG TABLET (FP) PO SCH (09:43)
[2019-03-25] MEDS: MIDODRINE HCL 5 MG TABLET PO SCH ×3 (09:45→17:22)
[2019-03-25] MEDS: APIXABAN 2.5 MG TABLET PO SCH ×2 (09:46→21:11)
[2019-03-25] MEDS: FLUDROCORTISONE ACETATE 0.1 MG TABLET (FP) PO SCH (09:46)
[2019-03-25] MEDS: PANTOPRAZOLE 40 MG TABLET (FP) PO SCH ×2 (09:46→21:11)
[2019-03-25] MEDS: POLYETHYLENE GLYCOL 3350 119 GM BTL PO SCH ×2 (09:47→21:12)
--- NOTE | 2019-03-25 10:16 | PN ---
Progress Note (short form) - Note Progress Note: PULMONARY Breathing slightly better but still feels weak. Vital Signs Period Temp Pulse Resp BP Sys/Tenorio Pulse Ox Last 24 Hr 97.3 F-97.8 F 76-96 20-20 88-107/57-69 Gen: less tachypneic at rest Heart: RRR Lung: decreased breath sounds at the bases Abd: soft, nontender Ext: no edema CBC, BMP 03/25/19 07:15 03/25/19 07:15 Active Medications Acetaminophen (Tylenol -) 650 mg PO Q6H PRN PRN Reason: PAIN Last Admin: 03/21/19 16:53 Dose: 650 mg Albuterol/Ipratropium (Duoneb -) 1 amp NEB RQID [facility] Last Admin: 03/25/19 08:24 Dose: 1 amp Apixaban (Eliquis -) 2.5 mg PO BID [facility] Last Admin: 03/25/19 09:46 Dose: 2.5 mg Carvedilol (Coreg -) 6.25 mg PO BID [facility] Last Admin: 03/25/19 09:43 Dose: Not Given Fludrocortisone Acetate (Florinef -) 0.1 mg PO DAILY [facility] Last Admin: 03/25/19 09:46 Dose: 0.1 mg Furosemide (Lasix -) 20 mg PO DAILY [facility] Last Admin: 03/25/19 09:43 Dose: Not Given Latanoprost (Xalatan 0.005% Eye Drops -) 1 drop OU HS [facility] Last Admin: 03/24/19 21:21 Dose: Not Given Levothyroxine Sodium (Synthroid -) 88 mcg PO DAILY@0700 [facility] Last Admin: 03/25/19 06:41 Dose: 88 mcg Midodrine (Proamatine -) 10 mg PO TID-MID [facility] Last Admin: 03/25/19 09:45 Dose: 10 mg Pantoprazole Sodium (Protonix -) 40 mg PO BID [facility] Last Admin: 03/25/19 09:46 Dose: 40 mg Polyethylene Glycol (Miralax (For Daily Use) -) 17 gm PO BID [facility] Last Admin: 03/25/19 09:47 Dose: 17 grams A/P Acute Hypoxic Respiratory Failure improving Acute on Chronic Diastolic Heart Failure Volume Overload Pleural Effusions s/p Left Pigtail Catheter placement GI Bleed Acute Blood Loss Anemia Acute Kidney Injury Anemia/Thrombocytopenia h/o Colon Ca Atrial Fibrillation COPD Hypothyroidism HTN - continue lasix - monitor urine output, creatinine - inhaled bronchodilators - rate controlled - continue anticoagulation - d/c planning
--- NOTE | 2019-03-25 17:19 | PN ---
Physical Exam: SUBJECTIVE: Patient seen and examined. She reports breathing is the same as yesterday. She denies chest pain and cough. She had abdominal pain yesterday but was relieved with BM. OBJECTIVE: Vital Signs Period Temp Pulse Resp BP Sys/Tenorio Pulse Ox Last 24 Hr 97.4 F-97.8 F 76-96 20-20 88-107/51-68 GENERAL: The patient is awake, alert, and fully oriented, not in distress HEAD: Normal with no signs of trauma. EYES: PERRL, extraocular movements intact, conjunctiva clear. ENT: Ears normal, nares patent, moist mucous membranes. NECK: Trachea midline, full range of motion LUNGS: Left lung CTA, right lung decreased breath sounds HEART: Regular rate and irregular rhythm, no murmur ABDOMEN: Soft, non-tender to palpation, nondistended, normoactive bowel sounds, no guarding EXTREMITIES: Warm, well-perfused, +1 edema b/l LE, dry skin on feet NEUROLOGICAL: Cranial nerves II through XII grossly intact. Normal speech. PSYCH: Normal mood, normal affect. SKIN: Warm, dry, normal turgor, no rashes or lesions noted Laboratory Results - last 24 hr 03/25/19 03/25/19 07:15 07:15 WBC 4.5 RBC 3.17 L Hgb 9.1 L Hct 28.3 L MCV 89.1 MCH 28.7 MCHC 32.2 RDW 20.7 H Plt Count 171 D MPV 7.9 Sodium 135 L Potassium 4.3 Chloride 100 Carbon Dioxide 30 Anion Gap 5 L BUN 26.0 H Creatinine 1.1 Est GFR (CKD-EPI)AfAm 52.65 Est GFR (CKD-EPI)NonAf 45.42 Random Glucose 79 Calcium 8.7 Active Medications Generic Name Dose Route Start Last Admin Trade Name Freq PRN Reason Stop Dose Admin Acetaminophen 650 mg 03/21/19 15:41 03/21/19 16:53 Tylenol - PO 650 mg Q6H PRN Administration PAIN Albuterol/Ipratropium 1 amp 03/18/19 08:00 03/25/19 16:28 Duoneb - NEB 1 amp RQID [facility] Administration Apixaban 2.5 mg 03/17/19 22:00 03/25/19 09:46 Eliquis - PO 2.5 mg BID [facility] Administration Carvedilol 6.25 mg 03/18/19 10:00 03/25/19 09:43 Coreg - PO Not Given BID [facility] Fludrocortisone Acetate 0.1 mg 03/19/19 13:00 03/25/19 09:46 Florinef - PO 0.1 mg DAILY [facility] Administration Furosemide 20 mg 03/25/19 10:00 03/25/19 09:43 Lasix - PO Not Given DAILY [facility] Latanoprost 1 drop 03/18/19 22:00 03/24/19 21:21 Xalatan 0.005% Eye Drops - OU Not Given HS [facility] Levothyroxine Sodium 88 mcg 03/18/19 07:58 03/25/19 06:41 Synthroid - PO 88 mcg DAILY@0700 [facility] Administration Midodrine 10 mg 03/18/19 10:00 03/25/19 14:20 Proamatine - PO 10 mg TID-MID [facility] Administration Pantoprazole Sodium 40 mg 03/18/19 10:00 03/25/19 09:46 Protonix - PO 40 mg BID [facility] Administration Polyethylene Glycol 17 gm 03/18/19 10:00 03/25/19 09:47 Miralax (For Daily Use) - PO 17 grams BID [facility] Administration ASSESSMENT/PLAN: Ms. Leiva is an 83y/o female with afib (on Eliquis), HTN, COPD, NSTEMI s/p stent, CAD, HFpEF (EF55% 11/2017), and colon cancer who presents with weakness x 1 week. Pt was found to be hypotensive and anemic (5.5). Pt became hypotensive and hypoxic during EGD but improved with epi and ambu-bagging. #acute hypoxic respiratory failure 2/2 b/l pleural effusions s/p b/l thoracentesis #HFpEF -duo-neb -Lasix 20mg PO daily -cards following -pulm following #hypotension -midodrine 10mg TID -fludrocortisone 0.1mg daily -PT #afib -carvedilol 6.25mg BID -Eliquis #AMANDA, resolved Cr stable -monitor for changes given started Lasix #normocytic anemia 2/2 resolving duodenitis and possible small ulcer, s/p transfusion -monitor labs -PO protonix 40mg BID #glaucoma -latanoprost #HTN -monitor pressure -cavedilol 12.5mg BID as tolerated #hypothyroidism -Synthroid #hypomagnesemia, resolved DVT Ppx Eliquis FEN no standing fluids monitor labs sodium controlled diet dispo med/surg, d/c after placement determined and stabilization of effusion FULL CODE Visit type - Emergency Visit Emergency Visit: Yes ED Registration Date: 03/12/19 Care time: The patient presented to the Emergency Department on the above date and was hospitalized for further evaluation of their emergent condition. - New Patient This patient is new to me today: No - Critical Care Critical Care patient: No - Discharge Referral Referred to [facility] No ATTENDING PHYSICIAN STATEMENT I saw and evaluated the patient. I reviewed the resident's note and discussed the case with the resident. I agree with the resident's findings and plan as documented. SUBJECTIVE: OBJECTIVE: ASSESSMENT AND PLAN:
--- NOTE | 2019-03-25 17:29 | PN ---
Teaching Attending Note Name of Resident: Bernice Garcia ATTENDING PHYSICIAN STATEMENT I saw and evaluated the patient. I reviewed the resident's note and discussed the case with the resident. I agree with the resident's findings and plan as documented. SUBJECTIVE: Patient is feeling better, no acute distress. OBJECTIVE: Vital Signs Temperature 97.9 F 03/25/19 17:18 Pulse Rate 80 03/25/19 17:18 Respiratory Rate 20 03/25/19 17:18 Blood Pressure 101/73 03/25/19 17:18 O2 Sat by Pulse Oximetry (%) 96 03/24/19 09:00 GENERAL: The patient is awake, alert, and fully oriented, in no distress. HEAD: Normal with no signs of trauma. EYES: PERRL, extraocular movements intact, sclera anicteric, conjunctiva clear. ENT: Ears normal, oropharynx clear without exudates, moist mucous membranes. NECK: Trachea midline, full range of motion, supple. LUNGS: CTA BL , no wheezes, no crackles, no accessory muscle use. HEART: Irregularly-irregular , rate of 80 , S1, S2 positive, ALEJANDRO 3/6 lsb, NO rub or gallop. ABDOMEN: Soft, nt,nd, normoactive bowel sounds, no guarding, no rebound, no hepatosplenomegaly, no masses. EXTREMITIES: 2+ pulses, warm, well-perfused, no edema. NEUROLOGICAL: Cranial nerves II through XII grossly intact. Normal speech, gait not observed. PSYCH: Normal mood, normal affect. SKIN: Warm, dry, normal turgor, no rashes or lesions noted CBCD WBC 4.5 K/mm3 (4.0-10.0) 03/25/19 07:15 RBC 3.17 M/mm3 (3.60-5.2) L 03/25/19 07:15 Hgb 9.1 GM/dL (10.7-15.3) L 03/25/19 07:15 Hct 28.3 % (32.4-45.2) L 03/25/19 07:15 MCV 89.1 fl (80-96) 03/25/19 07:15 MCHC 32.2 g/dl (32.0-36.0) 03/25/19 07:15 RDW 20.7 % (11.6-15.6) H 03/25/19 07:15 Plt Count 171 K/MM3 (134-434) D 03/25/19 07:15 MPV 7.9 fl (7.5-11.1) 03/25/19 07:15 CMP Sodium 135 mmol/L (136-145) L 03/25/19 07:15 Potassium 4.3 mmol/L (3.5-5.1) 03/25/19 07:15 Chloride 100 mmol/L (98-107) 03/25/19 07:15 Carbon Dioxide 30 mmol/L (21-32) 03/25/19 07:15 Anion Gap 5 MMOL/L (8-16) L 03/25/19 07:15 BUN 26.0 mg/dL (7-18) H 03/25/19 07:15 Creatinine 1.1 mg/dL (0.55-1.3) 03/25/19 07:15 Random Glucose 79 mg/dL (74-106) 03/25/19 07:15 Calcium 8.7 mg/dL (8.5-10.1) 03/25/19 07:15 Total Bilirubin 1.0 mg/dL (0.2-1) 03/23/19 07:57 AST 9 U/L (15-37) L 03/23/19 07:57 ALT 6 U/L (13-61) L 03/23/19 07:57 Alkaline Phosphatase 62 U/L (45-117) 03/23/19 07:57 Total Protein 5.7 g/dl (6.4-8.2) L 03/23/19 07:57 Albumin 2.6 g/dl (3.4-5.0) L 03/23/19 07:57 CARDIAC ENZYMES Creatine Kinase 45 U/L (26-192) 03/12/19 14:30 Troponin I 0.02 ng/ml (0.00-0.05) 03/12/19 14:30 Current Medications Generic Name Dose Route Start Last Admin Trade Name Freq PRN Reason Stop Dose Admin Acetaminophen 650 mg 03/21/19 15:41 03/21/19 16:53 Tylenol - PO 650 mg Q6H PRN Administration PAIN Albuterol/Ipratropium 1 amp 03/18/19 08:00 03/25/19 16:28 Duoneb - NEB 1 amp RQID [facility] Administration Apixaban 2.5 mg 03/17/19 22:00 03/25/19 09:46 Eliquis - PO 2.5 mg BID [facility] Administration Carvedilol 6.25 mg 03/18/19 10:00 03/25/19 09:43 Coreg - PO Not Given BID [facility] Fludrocortisone Acetate 0.1 mg 03/19/19 13:00 03/25/19 09:46 Florinef - PO 0.1 mg DAILY [facility] Administration Furosemide 20 mg 03/25/19 10:00 03/25/19 09:43 Lasix - PO Not Given DAILY [facility] Latanoprost 1 drop 03/18/19 22:00 03/24/19 21:21 Xalatan 0.005% Eye Drops - OU Not Given HS [facility] Levothyroxine Sodium 88 mcg 03/18/19 07:58 03/25/19 06:41 Synthroid - PO 88 mcg DAILY@0700 [facility] Administration Midodrine 10 mg 03/18/19 10:00 03/25/19 17:22 Proamatine - PO 10 mg TID-MID [facility] Administration Pantoprazole Sodium 40 mg 03/18/19 10:00 03/25/19 09:46 Protonix - PO 40 mg BID [facility] Administration Polyethylene Glycol 17 gm 03/18/19 10:00 03/25/19 09:47 Miralax (For Daily Use) - PO 17 grams BID [facility] Administration home Medications Medication Instructions Recorded Atorvastatin Ca [Lipitor] 40 mg PO HS 10/19/17 Carvedilol [Coreg] 12.5 mg PO BID 10/19/17 Latanoprost 0.005% Eye Drops 1 drop OU HS 10/19/17 [Xalatan 0.005% Eye Drops -] Levothyroxine Sodium [Synthroid] 100 mcg PO DAILY 10/19/17 Isosorbide Mononitrate [Isosorbide 30 mg PO DAILY 11/25/17 Mononitrate ER] Apixaban [Eliquis -] 2.5 mg PO BID #60 tablet 12/04/17 Furosemide [Lasix -] 80 mg PO BID@0600,1400 03/12/19 Levothyroxine [Synthroid -] 88 mcg PO DAILY #30 tablet 03/12/19 Lisinopril 10 mg PO DAILY 03/12/19 CXR: extensive pulmonary pleural effusions with large heart and dense left base persists. ASSESSMENT AND PLAN: Patient is an 82yo Female with PMHx D.CHF, Afib on NOac , colon ca s/p resection, COPD, CAD s/p stent presented to the ER with acute GIB # B/L pleural effusions s/p pigtail , patient is s/p thoracocentesis as per pulm. comfortable, in NAD # S/p colonoscopy: due to Upper GI bleed from duodenitis #s/p UGIB : s/p Protonix drip , now on po protinix , s/p transfusions, s/p FFp, Prbc,GI , s/p platelet transfusion. #s/p ARF prerenal due to Acute GIB improved now # Acute on CHronic diastolic CHF,s/p transfusions, cardio dr escudero continue with po Lasix # Hx of afib: on Eliquis continue # Postural hypotension: on midodrine and fludrocortisone due to persistent hypotension . # hx of Colon ca s/p resection # hypothyroid- continue levothyroxine # CAD s/p stent # hx of 7th rib fracture # hx of UTI Klebsiella Pneumoniae GI px: protonix DVT px: Scds patient is going to rehab. e
[2019-03-25] MEDS: LATANOPROST 0.005% OPHTH SOLN 2.5ML BOTTLE OU SCH (21:14)
[2019-03-26] MEDS: LEVOTHYROXINE NA 88 MCG TABLET (FP) PO SCH (06:03)
[2019-03-26] MEDS: ALBUTEROL SO4 2.5/IPRATROPIUM 0.5 INH SOL 3 ML VIAL.NEB. NEB SCH ×3 (08:33→16:13)
[2019-03-26 08:38] LABS: CALCIUM 8.5 mg/dL (8.5-10.1); POTASSIUM 4.6 mmol/L (3.5-5.1)
[2019-03-26] MEDS ORDERED: PT OWN MED DRAWER 7, Y5N ONE (10:19)
[2019-03-26] MEDS: PANTOPRAZOLE 40 MG TABLET (FP) PO SCH (10:37)
[2019-03-26] MEDS: APIXABAN 2.5 MG TABLET PO SCH (10:37)
[2019-03-26] MEDS: FUROSEMIDE 20 MG TABLET (FP) PO SCH (10:38)
[2019-03-26] MEDS: FLUDROCORTISONE ACETATE 0.1 MG TABLET (FP) PO SCH (10:38)
[2019-03-26] MEDS: MIDODRINE HCL 5 MG TABLET PO SCH ×3 (10:38→17:57)
[2019-03-26] MEDS: CARVEDILOL 6.25 MG TABLET (FP) PO SCH (10:38)
[2019-03-26] MEDS: POLYETHYLENE GLYCOL 3350 119 GM BTL PO SCH (10:38)
--- NOTE | 2019-03-26 13:10 | PN ---
Progress Note (short form) - Note Progress Note: PULMONARY VSS/AFEBRILE Gen: less tachypneic Heart: RRR Lung: diminished bibasilar breath sounds Abd: soft, nontender Ext: no edema meds/notes/images reviewed ASSESSMENT AND PLAN: Chronic Hypoxic Respiratory Failure Acute on Chronic Diastolic Heart Failure resolved Anemia/Thrombocytopenia h/o Colon Ca Atrial Fibrillation COPD Hypothyroidism HTN - lasix - monitor H/H - protonix - anticoagulation resumed - DVT prophylaxis - Discharge planning is appropriate Dereck OWENS MD
--- NOTE | 2019-03-26 14:27 | PN ---
Teaching Attending Note Name of Resident: Bernice Garcia ATTENDING PHYSICIAN STATEMENT I saw and evaluated the patient. I reviewed the resident's note and discussed the case with the resident. I agree with the resident's findings and plan as documented. SUBJECTIVE: Patient is comfortable has no new complains. Vital Signs Temperature 98.1 F 03/26/19 09:09 Pulse Rate 65 03/26/19 09:09 Respiratory Rate 18 03/26/19 09:09 Blood Pressure 113/84 03/26/19 09:09 O2 Sat by Pulse Oximetry (%) 97 03/26/19 09:00 GENERAL: The patient is awake, alert, and fully oriented, in no distress. HEAD: Normal with no signs of trauma. EYES: PERRL, extraocular movements intact, sclera anicteric, conjunctiva clear. ENT: Ears normal, oropharynx clear without exudates, moist mucous membranes. NECK: Trachea midline, full range of motion, supple. LUNGS: CTABL, no rales , no wheezes, no crackles, no accessory muscle use. HEART: Irregularly-irregular , rate of 80 , S1, S2 positive, ALEJANDRO 3/6 lsb, NO rub or gallop. ABDOMEN: Soft, nt,nd, normoactive bowel sounds, no guarding, no rebound, no hepatosplenomegaly, no masses. EXTREMITIES: 2+ pulses, warm, well-perfused, no edema. NEUROLOGICAL: Cranial nerves II through XII grossly intact. Normal speech, gait not observed. PSYCH: Normal mood, normal affect. SKIN: Warm, dry, normal turgor, no rashes or lesions noted CBCD WBC 4.5 K/mm3 (4.0-10.0) 03/25/19 07:15 RBC 3.17 M/mm3 (3.60-5.2) L 03/25/19 07:15 Hgb 9.1 GM/dL (10.7-15.3) L 03/25/19 07:15 Hct 28.3 % (32.4-45.2) L 03/25/19 07:15 MCV 89.1 fl (80-96) 03/25/19 07:15 MCHC 32.2 g/dl (32.0-36.0) 03/25/19 07:15 RDW 20.7 % (11.6-15.6) H 03/25/19 07:15 Plt Count 171 K/MM3 (134-434) D 03/25/19 07:15 MPV 7.9 fl (7.5-11.1) 03/25/19 07:15 CMP Sodium 135 mmol/L (136-145) L 03/26/19 07:20 Potassium 4.6 mmol/L (3.5-5.1) 03/26/19 07:20 Chloride 101 mmol/L (98-107) 03/26/19 07:20 Carbon Dioxide 30 mmol/L (21-32) 03/26/19 07:20 Anion Gap 5 MMOL/L (8-16) L 03/26/19 07:20 BUN 25.0 mg/dL (7-18) H 03/26/19 07:20 Creatinine 1.0 mg/dL (0.55-1.3) 03/26/19 07:20 Random Glucose 88 mg/dL (74-106) 03/26/19 07:20 Calcium 8.5 mg/dL (8.5-10.1) 03/26/19 07:20 Total Bilirubin 1.0 mg/dL (0.2-1) 03/23/19 07:57 AST 9 U/L (15-37) L 03/23/19 07:57 ALT 6 U/L (13-61) L 03/23/19 07:57 Alkaline Phosphatase 62 U/L (45-117) 03/23/19 07:57 Total Protein 5.7 g/dl (6.4-8.2) L 03/23/19 07:57 Albumin 2.6 g/dl (3.4-5.0) L 03/23/19 07:57 CARDIAC ENZYMES Creatine Kinase 45 U/L (26-192) 03/12/19 14:30 Troponin I 0.02 ng/ml (0.00-0.05) 03/12/19 14:30 Current Medications Generic Name Dose Route Start Last Admin Trade Name Freq PRN Reason Stop Dose Admin Acetaminophen 650 mg 03/21/19 15:41 03/21/19 16:53 Tylenol - PO 650 mg Q6H PRN Administration PAIN Albuterol/Ipratropium 1 amp 03/18/19 08:00 03/26/19 11:51 Duoneb - NEB 1 amp RQID [facility] Administration Apixaban 2.5 mg 03/17/19 22:00 03/26/19 10:37 Eliquis - PO 2.5 mg BID [facility] Administration Carvedilol 6.25 mg 03/18/19 10:00 03/26/19 10:38 Coreg - PO 6.25 mg BID [facility] Administration Fludrocortisone Acetate 0.1 mg 03/19/19 13:00 03/26/19 10:38 Florinef - PO 0.1 mg DAILY [facility] Administration Furosemide 20 mg 03/25/19 10:00 03/26/19 10:38 Lasix - PO 20 mg DAILY [facility] Administration Latanoprost 1 drop 03/18/19 22:00 03/25/19 21:14 Xalatan 0.005% Eye Drops - OU Not Given [facility] Levothyroxine Sodium 88 mcg 03/18/19 07:58 03/26/19 06:03 Synthroid - PO 88 mcg DAILY@0700 [facility] Administration Midodrine 10 mg 03/18/19 10:00 03/26/19 13:48 Proamatine - PO 10 mg TID-MID [facility] Administration Pantoprazole Sodium 40 mg 03/18/19 10:00 03/26/19 10:37 Protonix - PO 40 mg BID [facility] Administration Polyethylene Glycol 17 gm 03/18/19 10:00 03/26/19 10:38 Miralax (For Daily Use) - PO Not Given BID [facility] home Medications Medication Instructions Recorded Atorvastatin Ca [Lipitor] 40 mg PO HS 10/19/17 Carvedilol [Coreg] 12.5 mg PO BID 10/19/17 Latanoprost 0.005% Eye Drops 1 drop OU HS 10/19/17 [Xalatan 0.005% Eye Drops -] Levothyroxine Sodium [Synthroid] 100 mcg PO DAILY 10/19/17 Isosorbide Mononitrate [Isosorbide 30 mg PO DAILY 11/25/17 Mononitrate ER] Apixaban [Eliquis -] 2.5 mg PO BID #60 tablet 12/04/17 Furosemide [Lasix -] 80 mg PO BID@0600,1400 03/12/19 Levothyroxine [Synthroid -] 88 mcg PO DAILY #30 tablet 03/12/19 Lisinopril 10 mg PO DAILY 03/12/19 Microbiology 03/16/19 12:38 Pleural Fluid AFB Smear Concentration - Final 03/16/19 12:38 Pleural Fluid Mycobacterial Culture - Preliminary 03/16/19 12:38 Pleural Fluid Gram Stain - Final 03/16/19 12:38 Pleural Fluid Body Fluid Culture - Final NO GROWTH OF AEROBIC ORGANISMS AFTER 48 HOURS INCUBATION 03/16/19 12:38 Pleural Fluid Anaerobic Culture - Final NO ANAEROBES WERE ISOLATED 03/16/19 12:38 Pleural Fluid EUSEBIO Preparation - Preliminary 03/16/19 12:38 Pleural Fluid Fungal Culture - Preliminary CXR: extensive pulmonary pleural effusions with large heart and dense left base persists. ASSESSMENT AND PLAN: Patient is an 82yo Female with PMHx D.CHF, Afib on NOac , colon ca s/p resection, COPD, CAD s/p stent presented to the ER with acute GIB # B/L pleural effusions s/p pigtail , patient is comfortable s/p thoracocentesis as per pulm. comfortable, in NAD # S/p colonoscopy: due to Upper GI bleed from duodenitis will continue PPI #s/p UGIB : s/p Protonix drip , now on po protinix , s/p transfusions, s/p FFp, Prbc,GI , s/p platelet transfusion. #s/p ARF prerenal due to Acute GIB improved now # Acute on CHronic diastolic CHF,s/p transfusions, cardio dr escudero continue with po Lasix/coreg # Hx of afib: on Eliquis continue # Postural hypotension: on midodrine and fludrocortisone due to persistent hypotension . # hx of Colon ca s/p resection # hypothyroid- continue levothyroxine # CAD s/p stent # hx of 7th rib fracture # hx of UTI Klebsiella Pneumoniae GI px: protonix DVT px: Scds patient is going to rehab.today
--- NOTE | 2019-03-26 16:32 | DS ---
Physical Exam: SUBJECTIVE: Patient seen and examined. She reports breathing is improved compared to yesterday. OBJECTIVE: Vital Signs Period Temp Pulse Resp BP Sys/Tenorio Pulse Ox Last 24 Hr 97.3 F-98.2 F 65-89 18-22 87-123/45-84 97 PHYSICAL EXAM GENERAL: The patient is awake, alert, and fully oriented, not in distress HEAD: Normal with no signs of trauma. EYES: PERRL, extraocular movements intact, conjunctiva clear. ENT: Ears normal, nares patent, moist mucous membranes. NECK: Trachea midline, full range of motion LUNGS: Left lung CTA, right lung decreased breath sounds HEART: Regular rate and irregular rhythm, no murmur ABDOMEN: Soft, non-tender to palpation, nondistended, normoactive bowel sounds, no guarding EXTREMITIES: Warm, well-perfused, +1 edema b/l LE, dry skin on feet NEUROLOGICAL: Cranial nerves II through XII grossly intact. Normal speech. PSYCH: Normal mood, normal affect. SKIN: Warm, dry, normal turgor, no rashes or lesions noted LABS Laboratory Results - last 24 hr 03/26/19 07:20 Sodium 135 L Potassium 4.6 Chloride 101 Carbon Dioxide 30 Anion Gap 5 L BUN 25.0 H Creatinine 1.0 Est GFR (CKD-EPI)AfAm 59.08 Est GFR (CKD-EPI)NonAf 50.97 Random Glucose 88 Calcium 8.5 HOSPITAL COURSE: Ms. Leiva is an 83y/o female with afib (on Eliquis), HTN, COPD, NSTEMI s/p stent, CAD, HFpEF (EF55% 11/2017), and colon cancer who presents with weakness x 1 week. Pt was found to be hypotensive and anemic (5.5) and was transfused. Pt became hypotensive and hypoxic during EGD but improved with epi and ambu- bagging. She had duodenitis and ulcer. She was found to have b/l pleural effusions and b/l thoracenteses done with lasix given. For hypotension, she was given midodrine and fludrocortisone was added which improved pressure. Carvedilol was decreased to assist with pressure. Pt was discharged to [facility] for rehab. Date of Admission:03/12/19 Date of Discharge: 03/26/19 Minutes to complete discharge: 35 Discharge Summary Problems reviewed: Yes Reason For Visit: Weakness Current Active Problems Aortic arch anomaly (Acute) Colon adenoma (Acute) GI bleed (Acute) Gallstones (Acute) Gastroduodenitis with bleeding (Acute) Gastrointestinal hemorrhage with melena (Acute) Hiatal hernia (Acute) Hypothyroid (Acute) Condition: Improved - Instructions Diet, Activity, Other Instructions: HOSPITAL VISIT: You were admitted to the hospital for weakness and low blood pressure. You were found to have a GI bleed requiring an endoscopy as well as blood transfusions. You also had fluid around your lungs that required drainage. Your symptoms improved and you were stable to be discharged to a short term nursing facility MEDICATIONS: We started you on some new medications: Carvedilol 6.25mg twice a day (previously 12.5mg twice a day) Furosemide 20mg once a day Levothyroxine 88mcg once a day Fludrocortisone 0.1mg once a day Midodrine 10mg three times a day Pantoprazole 40mg twice a day Stop taking: Lisinopril Isosorbide mononitrate Continue to take your other home medications as previously prescribed please stay away from NSAIDS. FOLLOW UP: Dr. Hodges, primary care, in one week after discharge and have your labs checked (cbc/cmp) Dr. Richardson, pulmonology, in one week after discharge Dr. Marcum, gastroenterology, in two weeks after discharge Dr. Moore, cardiology, in two weeks after discharge OTHER INSTRUCTIONS: Return to the emergency room or call 911 if you have chest pain, difficulty breathing, notice blood in your stool, vomiting, or fever above 101. Referrals: Kirsty Hodges MD [Primary Care Provider] - 1 Week Eugenio Richardson MD [Staff Physician] - 1 Week Everett Marcum MD [Staff Physician] - 1 Week Ha Moore MD [Staff Physician] - 1 Week Disposition: SNF FACILITY - Home Medications Comprehensive Discharge Medication List: Ambulatory Orders Atorvastatin Ca [Lipitor] 40 mg PO HS 10/19/17 Latanoprost 0.005% Eye Drops [Xalatan 0.005% Eye Drops -] 1 drop OU HS 10/19/17 Apixaban [Eliquis -] 2.5 mg PO BID #60 tablet 12/04/17 Carvedilol [Coreg -] 6.25 mg PO BID #60 tablet 03/26/19 Fludrocortisone Acetate [Florinef -] 0.1 mg PO DAILY #30 tablet 03/26/19 Furosemide [Lasix -] 20 mg PO DAILY #30 tablet 03/26/19 Levothyroxine [Synthroid -] 88 mcg PO DAILY@0700 #30 tablet 03/26/19 Midodrine HCl [Proamatine -] 10 mg PO TID-MID #90 tablet 03/26/19 Pantoprazole Sodium [Protonix -] 40 mg PO BID #60 tablet.ec 03/26/19 This patient is new to me today: No Emergency Visit: Yes ED Registration Date: 03/12/19 Care time: The patient presented to the Emergency Department on the above date and was hospitalized for further evaluation of their emergent condition. Critical Care patient: No - Discharge Referral Referred to [facility] No ATTENDING PHYSICIAN STATEMENT I saw and evaluated the patient. I reviewed the resident's note and discussed the case with the resident. I agree with the resident's findings and plan as documented. SUBJECTIVE: OBJECTIVE: ASSESSMENT AND PLAN:
--- NOTE | 2019-03-26 17:29 | PN ---
Progress Note, Physician History of Present Illness: Patient is an 83 y/o Female with a PMhx of atrial fibrillation (on Eliquis), HTN, COPD, NSTEMI s/p stent placement, CAD, HFpEF (EF55% 11/2017), and colon cancer who presented to ED.for having generalized weakness x 1 week. Patient stated that she noticed dark, tarry stools. Patient lives by herself and is very active. while in Ed. was found to have low blood pressure and positive for tarry stool, with shortness of breath. - Current Medication List Current Medications: Active Medications Acetaminophen (Tylenol -) 650 mg PO Q6H PRN PRN Reason: PAIN Last Admin: 03/21/19 16:53 Dose: 650 mg Albuterol/Ipratropium (Duoneb -) 1 amp NEB RQID [facility] Last Admin: 03/26/19 16:13 Dose: 1 amp Apixaban (Eliquis -) 2.5 mg PO BID [facility] Last Admin: 03/26/19 10:37 Dose: 2.5 mg Carvedilol (Coreg -) 6.25 mg PO BID [facility] Last Admin: 03/26/19 10:38 Dose: 6.25 mg Fludrocortisone Acetate (Florinef -) 0.1 mg PO DAILY [facility] Last Admin: 03/26/19 10:38 Dose: 0.1 mg Furosemide (Lasix -) 20 mg PO DAILY [facility] Last Admin: 03/26/19 10:38 Dose: 20 mg Latanoprost (Xalatan 0.005% Eye Drops -) 1 drop OU HS [facility] Last Admin: 03/25/19 21:14 Dose: Not Given Levothyroxine Sodium (Synthroid -) 88 mcg PO DAILY@0700 [facility] Last Admin: 03/26/19 06:03 Dose: 88 mcg Midodrine (Proamatine -) 10 mg PO TID-MID [facility] Last Admin: 03/26/19 13:48 Dose: 10 mg Pantoprazole Sodium (Protonix -) 40 mg PO BID [facility] Last Admin: 03/26/19 10:37 Dose: 40 mg Polyethylene Glycol (Miralax (For Daily Use) -) 17 gm PO BID [facility] Last Admin: 03/26/19 10:38 Dose: Not Given - Objective Vital Signs: Vital Signs Temperature 97.3 F L 03/26/19 15:00 Pulse Rate 83 03/26/19 15:57 Respiratory Rate 22 H 03/26/19 15:57 Blood Pressure 103/59 L 03/26/19 15:57 O2 Sat by Pulse Oximetry (%) 97 03/26/19 09:00 Eyes: Yes: WNL, Conjunctiva Clear, EOM Intact HENT: Yes: WNL, Atraumatic, Normocephalic Neck: Yes: WNL, Supple, Trachea Midline Cardiovascular: Yes: WNL, Regular Rate and Rhythm Respiratory: Yes: WNL, Regular, CTA Bilaterally Gastrointestinal: Yes: WNL, Normal Bowel Sounds Genitourinary: Yes: WNL Musculoskeletal: Yes: WNL Extremities: Yes: WNL Edema: No Integumentary: Yes: WNL Neurological: Yes: WNL, Alert, Oriented ...Motor Strength: WNL Psychiatric: Yes: WNL Labs: CBC, BMP 03/25/19 07:15 03/26/19 07:20 INR, PTT INR 2.17 (0.83-1.09) H 03/13/19 06:30 Problem List - Problems (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 - CONGENITAL MALFORMATION OF [place]ORTA UNSPECIFIED (2) Colon adenoma Code(s): D12.6 - BENIGN NEOPLASM OF COLON, UNSPECIFIED (3) GI bleed Code(s): K92.2 - GASTROINTESTINAL HEMORRHAGE, UNSPECIFIED (4) Gallstones Code(s): K80.20 - CALCULUS OF GALLBLADDER W/O CHOLECYSTITIS W/O OBSTRUCTION (5) Gastrointestinal hemorrhage with melena Code(s): K92.1 - MELENA (6) Hiatal hernia Code(s): K44.9 - DIAPHRAGMATIC HERNIA WITHOUT OBSTRUCTION OR GANGRENE (7) Hypothyroid Code(s): E03.9 - HYPOTHYROIDISM, UNSPECIFIED (8) AMANDA (acute kidney injury) Code(s): N17.9 - ACUTE KIDNEY FAILURE, UNSPECIFIED (9) ASHD (arteriosclerotic heart disease) Code(s): I25.10 - ATHSCL HEART DISEASE OF [place] CORONARY ARTERY W/O ANG PCTRS (10) Acute on chronic systolic (congestive) heart failure Code(s): I50.23 - ACUTE ON CHRONIC SYSTOLIC (CONGESTIVE) HEART FAILURE (11) Acute on chronic systolic and diastolic heart failure, NYHA class 3 Code(s): I50.43 - ACUTE ON CHRONIC COMBINED SYSTOLIC AND DIASTOLIC HRT FAIL (12) Ankle pain, left Code(s): M25.572 - PAIN IN LEFT ANKLE AND JOINTS OF LEFT FOOT (13) Anxiety Code(s): F41.9 - ANXIETY DISORDER, UNSPECIFIED (14) Breast pain in female Code(s): N64.4 - MASTODYNIA (15) CHF (congestive heart failure) Code(s): I50.9 - HEART FAILURE, UNSPECIFIED Qualifiers: Heart failure type: unspecified Heart failure chronicity: chronic Qualified Code(s): I50.9 - Heart failure, unspecified (16) COPD (chronic obstructive pulmonary disease) Code(s): J44.9 - CHRONIC OBSTRUCTIVE PULMONARY DISEASE, UNSPECIFIED (17) COPD exacerbation Code(s): J44.1 - CHRONIC OBSTRUCTIVE PULMONARY DISEASE W (ACUTE) EXACERBATION (18) COPD mixed type Code(s): J44.9 - CHRONIC OBSTRUCTIVE PULMONARY DISEASE, UNSPECIFIED (19) Chest pain Code(s): R07.9 - CHEST PAIN, UNSPECIFIED Qualifiers: Chest pain type: unspecified Qualified Code(s): R07.9 - Chest pain, unspecified (20) Colon cancer Code(s): C18.9 - MALIGNANT NEOPLASM OF COLON, UNSPECIFIED (21) Community acquired pneumonia Code(s): J18.9 - PNEUMONIA, UNSPECIFIED ORGANISM (22) Contusion of rib on right side Code(s): S20.211A - CONTUSION OF RIGHT FRONT WALL OF THORAX, INITIAL ENCOUNTER (23) DVT prophylaxis Code(s): TJD4091 - (24) Diverticulosis Code(s): K57.90 - DVRTCLOS OF INTEST, PART UNSP, W/O PERF OR ABSCESS W/O BLEED (25) Elevated glucose Code(s): R73.09 - OTHER ABNORMAL GLUCOSE (26) Elevated lactic acid level Code(s): E87.2 - ACIDOSIS (27) Elevated troponin Code(s): R79.89 - OTHER SPECIFIED ABNORMAL FINDINGS OF BLOOD CHEMISTRY (28) Elevated troponin I level Code(s): R79.89 - OTHER SPECIFIED ABNORMAL FINDINGS OF BLOOD CHEMISTRY (29) [place] cardiac risk >20% in next 10 years Code(s): Z91.89 - OTH PERSONAL RISK FACTORS, NOT ELSEWHERE CLASSIFIED (30) Hyponatremia Code(s): E87.1 - HYPO-OSMOLALITY AND HYPONATREMIA (31) Hypotension Code(s): I95.9 - HYPOTENSION, UNSPECIFIED Qualifiers: Hypotension type: unspecified hypotension type Qualified Code(s): I95.9 - Hypotension, unspecified (32) Hypoxia Code(s): R09.02 - HYPOXEMIA (33) Lactic acid acidosis Code(s): E87.2 - ACIDOSIS (34) Microcytic hypochromic anemia Code(s): D50.9 - IRON DEFICIENCY ANEMIA, UNSPECIFIED (35) Moderate to severe pulmonary hypertension Code(s): I27.2 - OTHER SECONDARY PULMONARY HYPERTENSION * DO NOT USE * (36) Pericardial effusion Code(s): I31.3 - PERICARDIAL EFFUSION (NONINFLAMMATORY) (37) Periorbital hematoma of left eye Code(s): H05.232 - HEMORRHAGE OF LEFT ORBIT (38) Peripheral edema Code(s): R60.9 - EDEMA, UNSPECIFIED (39) Plantar fasciitis Code(s): M72.2 - PLANTAR FASCIAL FIBROMATOSIS (40) Pleural effusion Code(s): J90 - PLEURAL EFFUSION, NOT ELSEWHERE CLASSIFIED (41) Pneumonia Code(s): J18.9 - PNEUMONIA, UNSPECIFIED ORGANISM (42) Renal dysfunction Code(s): N28.9 - DISORDER OF KIDNEY AND URETER, UNSPECIFIED (43) Respiratory distress Code(s): R06.00 - DYSPNEA, UNSPECIFIED (44) Respiratory failure Code(s): J96.90 - RESPIRATORY FAILURE, UNSP, UNSP W HYPOXIA OR HYPERCAPNIA (45) Sepsis Code(s): A41.9 - SEPSIS, UNSPECIFIED ORGANISM (46) Sepsis due to pneumonia Code(s): J18.9 - PNEUMONIA, UNSPECIFIED ORGANISM; A41.9 - SEPSIS, UNSPECIFIED ORGANISM (47) Severe mitral regurgitation Code(s): I34.0 - NONRHEUMATIC MITRAL (VALVE) INSUFFICIENCY (48) Anemia Code(s): D64.9 - ANEMIA, UNSPECIFIED Qualifiers: Anemia type: unspecified type Qualified Code(s): D64.9 - Anemia, unspecified (49) Atrial fibrillation Code(s): I48.91 - UNSPECIFIED ATRIAL FIBRILLATION Qualifiers: Atrial fibrillation type: unspecified Qualified Code(s): I48.91 - Unspecified atrial fibrillation (50) Hypertension Code(s): I10 - ESSENTIAL (PRIMARY) HYPERTENSION (51) NSTEMI (non-ST elevated myocardial infarction) Code(s): I21.4 - NON-ST ELEVATION (NSTEMI) MYOCARDIAL INFARCTION Assessment/Plan Assessment/Plan 1. Acute Hypoxic Respiratory Failure post left chest tube 2. Acute on Chronic Diastolic Heart Failure (EF55% 11/2017) 3. Post endoscopy hypotension requiring pressors 4. GI Bleed with Acute Blood Loss Anemia and thrombocytopenia 5. Acute on chronic Kidney Injury at baseline 6. h/o Colon Ca 7. Atrial Fibrillation on eliquis 8. COPD 9. Hypothyroidism 10. HTN 11. CAD NSTEMI s/p stent placement 1. change IV diuresis to PO 2. Continue Eliquis 2.5 bid, carvedilol 6.25 bid, midodrine 10 tid, fluorinef 0.1 qd 3. Monitor H/H, transfuse as needed, protonix
[2019-03-26 19:24] VITALS: BP 106/68; PULSE 80; TEMP 98
== END 2019-03-26 19:54 | DRG 377 ==
LOC: JER 13:29 → JERBED 16:59 → JICU 17:55 → J5S 03-14 17:19 → JSAMEDAYSX 03-15 15:47 → JICU 03-15 18:16 → J8W 03-17 22:25
PROVIDERS: ADMIT Internal Medicine; ATTEND Internal Medicine
PROC: 30233N1 Transfusion of Nonautologous Red Blood Cells into Peripheral Vein, Percutaneous Approach (ICD-10-PCS; 2019-03-12)
PROC: 30233R1 Transfusion of Nonautologous Platelets into Peripheral Vein, Percutaneous Approach (ICD-10-PCS; 2019-03-12)
PROC: 0DJ08ZZ Inspection of Upper Intestinal Tract, Via Natural or Artificial Opening Endoscopic (ICD-10-PCS; 2019-03-15)
PROC: 0W9B30Z Drainage of Left Pleural Cavity with Drainage Device, Percutaneous Approach (ICD-10-PCS; 2019-03-16)
PROC: 0W9930Z Drainage of Right Pleural Cavity with Drainage Device, Percutaneous Approach (ICD-10-PCS; principal; 2019-03-24)
DX: K29.81 Duodenitis with bleeding (principal); I50.23 Acute on chronic systolic (congestive) heart failure; J96.01 Acute respiratory failure with hypoxia; D62 Acute posthemorrhagic anemia; N17.9 Acute kidney failure, unspecified; J90 Pleural effusion, not elsewhere classified; I13.0 Hypertensive heart and chronic kidney disease with heart failure and stage 1 through stage 4 chronic kidney disease, or unspecified chronic kidney disease; I25.10 Atherosclerotic heart disease of native coronary artery without angina pectoris; J44.9 Chronic obstructive pulmonary disease, unspecified; I48.91 Unspecified atrial fibrillation; I34.0 Nonrheumatic mitral (valve) insufficiency; K44.9 Diaphragmatic hernia without obstruction or gangrene; D69.6 Thrombocytopenia, unspecified; E03.9 Hypothyroidism, unspecified; Z98.61 Coronary angioplasty status; I25.2 Old myocardial infarction; K29.80 Duodenitis without bleeding; H40.9 Unspecified glaucoma; E83.42 Hypomagnesemia; I95.1 Orthostatic hypotension; E87.70 Fluid overload, unspecified; N18.9 Chronic kidney disease, unspecified; K57.90 Diverticulosis of intestine, part unspecified, without perforation or abscess without bleeding; I27.20 Pulmonary hypertension, unspecified
CPT/HCPCS: 36415; 36430; 36511; 71045-TC-FY; 80048; 80053; 82272; 82378; 82465; 82550; 82728; 82945; 83540; 83550; 83615; 83735; 84100; 84157; 84443; 84484; 85025; 85027; 85044; 85610; 85730; 86850; 86900; 86901; 86922; 87070; 87075; 87102; 87116; 87205; 87206; 87210; 88108; 88305-TC; 93005; 93010; 93306-TC; 94640; 97116-GP; 97162-GP; 99285-25; P9034; P9038; P9058

== ENCOUNTER 2019-03-27 07:06 | Emergency (ER) | payer OTHER ==
--- NOTE | 2019-03-27 07:48 | PDOC ---
Attending Attestation - Resident Resident Name: Aren Farmer - ED Attending Attestation I have performed the following: I have examined & evaluated the patient, The case was reviewed & discussed with the resident, I agree w/resident's findings & plan, Exceptions are as noted - HPI HPI: 03/27/19 07:57 82 years old past medical history significant for CHF A. fib on anticoagulation colon cancer status post resection COPD CAD recently admitted to hospital for acute GI bleed presents from group home in cardiac arrest last seen normal at some time last night found this morning approximately 5:45 AM unresponsive pulseless CPR started EMS called - Physicial Exam PE: 03/27/19 07:57 Vitals: Triage Vital signs reviewed General Appearance:Intubated CPR inprogress Head: Atraumatic, Eyes: Fixed and dilated Throat: Intubated Neck: Supple; no Nucal rigidity Chest Wall: Nontender Cardiac: No spontaneous cardiac activity Lungs: Intubated B/L Breath sounds Abdomen: Distended - Medical Decision Making 03/27/19 07:54 82 years old past medical history significant for CHF A. fib on anticoagulation colon cancer status post resection COPD CAD recently admitted to hospital for acute GI bleed presents from group home in cardiac arrest last seen normal at some time last night found this morning approximately 5:45 AM unresponsive pulseless CPR started EMS called In route to hospital high-quality CPR performed given 4 rounds of epi calcium gluconate one-point [place] was obtained patient started on Levophed drip briefly after arrested again brought to ED with active CPR placed In the emergency department CPR continued for additional 15 to 20 minutes additional epinephrine and bicarb given to patient bedside ultrasound performed with PEA At 7:14 AM after a total of 1 hour 30 minutes of CPR patient pronounced Family notified condolences offered Case discussed with medical equipment sales case not accepted questioned documents examiner case #[id number] [place]
[2019-03-27 07:53] VITALS: BP 0/0; PULSE 0; BMI 24.7
--- NOTE | 2019-03-27 08:27 | PDOC ---
History of Present Illness - General Chief Complaint: Cardiac Arrest Stated Complaint: CARDIAC ARREST Time Seen by Provider: 03/27/19 07:39 - History of Present Illness Initial Comments: 03/27/19 08:26 84f with pmh of HTN, HLD, CHF, CAD, NSTEMI s/p stent placement, A-fib on ELiquis COPD, Cancerous colon polyp removed (no chemo/radiation) with recent admission and discharge for uper GI bleed, sent to [facility] for rehab yesterday, brought in by EMS following cardiac arrest, found unresponsive on the floor for unknown amount of time. Found unresponsive, pulseless and not breathing by EMS whoi started CPR, gave 4x epi and CaCl, ROSC obtained to bradycardic rhythm and hypotension. Levaphed started on the scene with transcutaneous pacing for about 5 minutesd before patient asystolic again. At that time patient got intubated and william machine initiated while transported to our ED, levophed still infusing in the left arm. One dose of epinephrine and bicarb was administred in our ed while CPR was continued with no ROSC obtained. Heart fasciculations but no beat confirmed by POCUS. POCUS also confirmed large amount of free fluid in the abdomen. confirmed at 7:14am. Past History - Past Medical History Allergies/Adverse Reactions: Allergies Allergy/AdvReac Type Severity Reaction Status Date / Time cephalexin [Cephalexin] Allergy Intermediate Rash Verified 03/27/19 07:53 clindamycin Allergy Intermediate Rash Verified 03/27/19 07:53 naproxen [From Naprosyn] Allergy Intermediate ANKLES Verified 03/27/19 07:53 SWELLED UP Penicillins Allergy Intermediate Rash Verified 03/27/19 07:53 diphenhydramine HCl AdvReac CAN'T Verified 03/27/19 07:53 [From Benadryl] HAVE,HAS GLAUCOMA Home Medications: Ambulatory Orders Atorvastatin Ca [Lipitor] 40 mg PO HS 10/19/17 Latanoprost 0.005% Eye Drops [Xalatan 0.005% Eye Drops -] 1 drop OU HS 10/19/17 Apixaban [Eliquis -] 2.5 mg PO BID #60 tablet 12/04/17 Carvedilol [Coreg -] 6.25 mg PO BID #60 tablet 03/26/19 Fludrocortisone Acetate [Florinef -] 0.1 mg PO DAILY #30 tablet 03/26/19 Furosemide [Lasix -] 20 mg PO DAILY #30 tablet 03/26/19 Levothyroxine [Synthroid -] 88 mcg PO DAILY@0700 #30 tablet 03/26/19 Midodrine HCl [Proamatine -] 10 mg PO TID-MID #90 tablet 03/26/19 Pantoprazole Sodium [Protonix -] 40 mg PO BID #60 tablet.ec 03/26/19 Anemia: Yes Asthma: No Cancer: Yes (colon cancer) Cardiac Disorders: Yes (STENT) CVA: No COPD: No CHF: Yes DVT: No Dementia: No Diabetes: No GI Disorders: Yes (hiatal hernia.) Disorders: No HTN: Yes Hypercholesterolemia: Yes Liver Disease: No Seizures: No Thyroid Disease: Yes (hypothyroid) - Surgical History Abdominal Surgery: No Appendectomy: No Cardiac Surgery: Yes (STENT 10/27/15) Cholecystectomy: No Lung Surgery: No Neurologic Surgery: No Orthopedic Surgery: No - Psycho Social/Smoking Cessation Hx Smoking History: Unknown if ever smoked Have you smoked in the past 12 months: No Number of Cigarettes Smoked Daily: 40 If you are a former smoker, when did you quit?: 23 YEARS AGO Hx Alcohol Use: No Drug/Substance Use Hx: No Substance Use Type: None Hx Substance Use Treatment: No Cardiac Specific PMH - Complaint Specific PMHX Pacemaker: No Review of Systems - Review of Systems Able to Perform ROS?: No (cardiac arrest) *Physical Exam - Vital Signs Last Vital Signs Temp Pulse Resp BP Pulse Ox 0 L 0/0 L 03/27/19 07:06 03/27/19 07:06 - Physical Exam General Appearance: Yes: Other (unresponsive, cold) HEENT: positive: Other (intubated 23 at lip) Respiratory/Chest: positive: Other (no spontanous breaths) Cardiovascular: positive: Other (asystole) Gastrointestinal/Abdominal: positive: Other (distended abdomen) Medical Decision Making - Medical Decision Making 03/27/19 10:28 84f with pmh of HTN, HLD, CHF, CAD, NSTEMI s/p stent placement, A-fib on ELiquis COPD, Cancerous colon polyp removed (no chemo/radiation) with recent admission and discharge for uper GI bleed, sent to [facility] for rehab yesterday, brought in by EMS following cardiac arrest, found unresponsive on the floor for unknown amount of time. Found unresponsive, pulseless and not breathing by EMS whoi started CPR, gave 4x epi and CaCl, ROSC obtained to bradycardic rhythm and hypotension. Levaphed started on the scene with transcutaneous pacing for about 5 minutesd before patient asystolic again. At that time patient got intubated and william machine initiated while transported to our ED, levophed still infusing in the left arm. One dose of epinephrine and bicarb was administred in our ed while CPR was continued with no ROSC obtained. Heart fasciculations but no beat confirmed by POCUS. confirmed at 7:14am. Discharge - Discharge Information Problems reviewed: Yes Clinical Impression/Diagnosis: Cardiac arrest Condition: - Follow up/Referral - Patient Discharge Instructions - Post Discharge Activity
--- NOTE | 2019-03-27 10:32 | PDOC ---
*Physical Exam - Vital Signs Last Vital Signs Temp Pulse Resp BP Pulse Ox 0 L 0/0 L 03/27/19 07:06 03/27/19 07:06 Medical Decision Making - Medical Decision Making 03/27/19 10:32 Called medical coding specialist animal cruelty investigator Paul, who declined the case. Next of kin was informed by Dr. Anglin. Discharge - Discharge Information Problems reviewed: Yes Clinical Impression/Diagnosis: Cardiac arrest Condition: Disposition: - Follow up/Referral - Patient Discharge Instructions - Post Discharge Activity
== END 2019-03-27 10:23 | disposition expired ==
LOC: JER 07:06
DX: I46.9 Cardiac arrest, cause unspecified (principal); I10 Essential (primary) hypertension; E78.5 Hyperlipidemia, unspecified; I50.9 Heart failure, unspecified; I25.10 Atherosclerotic heart disease of native coronary artery without angina pectoris; I48.91 Unspecified atrial fibrillation; Z79.01 Long term (current) use of anticoagulants; J44.9 Chronic obstructive pulmonary disease, unspecified; Z87.891 Personal history of nicotine dependence; Z95.5 Presence of coronary angioplasty implant and graft; E03.9 Hypothyroidism, unspecified; Z85.038 Personal history of other malignant neoplasm of large intestine
CPT/HCPCS: 92950; 99284-25